=== PATIENT | female | born 1970 | race Caucasian/White ===

== ENCOUNTER 2017-10-08 03:04 | Inpatient (IN) | payer OTHER ==
[~2017-10-08] VITALS: Ht 162.6 cm; Wt 70.3 kg
[~2017-10-08 03:04] MED LIST: ATENOLOL25 MG PO; CEPHALEXIN250 MG PO; HYDROCHLOROTHIA25 MG PO; KEFLEX750 MG PO; KENALOG-1010 MG/1 ML IM; PROMETHAZINE HC25 M1 PO; SOMA350 MG PO; VICODIN ES 7.51 EACH PO
[2017-10-08] MEDS ORDERED: HYDROMORPHONE 1MG/1ML INJ IV STA (03:32)
[2017-10-08] MEDS ORDERED: ONDANSETRON HCL INJ 2 MG/ML VIAL IV STA (03:32)
[2017-10-08 03:45] LABS: BASOPHILS # (AUTO) 0.1 (0.0-0.1); BASOPHILS % 0.8 % (0.0-1.0); EOSINOPHILS % 0.2 % (0.0-6.0); HEMOGLOBIN 13.1 g/dL (12.0-16.0); LYMPHOCYTES # (AUTO) 3.3 (1.0-3.2); LYMPHOCYTES % 17.9 % (18.0-39.1); MEAN CORPUSCULAR HEMOGLOBIN 34.4 pg (28-32); MEAN CORPUSCULAR HGB CONC 35.4 g/dL (31-35); MEAN CORPUSCULAR VOLUME 97.1 fL (81-99); MONOCYTES # (AUTO) 1.1 (0.2-0.8); MONOCYTES % 6.1 % (4.4-11.3); NEUTROPHILS # (AUTO) 12.6 (2.1-6.9); NEUTROPHILS % 68.5 % (38.7-80.0); PLATELET COUNT 427 x10e3/uL (140-360); RED BLOOD COUNT 3.81 x10e6/uL (3.6-5.1); RED CELL DISTRIBUTION WIDTH 14.8 % (11.7-14.4)
[2017-10-08 03:49] LABS: INR 0.96
[2017-10-08 03:56] LABS: ALANINE AMINOTRANSFERASE 45 IU/L (0-55); ALBUMIN 3.5 g/dL (3.5-5.0); ALBUMIN/GLOBULIN RATIO 0.9 (0.8-2.0); ALKALINE PHOSPHATASE 93 IU/L (40-150); ANION GAP 16.8 mmol/L (8-16); BLOOD UREA NITROGEN 25 mg/dL (7-26); BUN/CREATININE RATIO 23 (6-25); CALCIUM 9.3 mg/dL (8.4-10.2); CARBON DIOXIDE 22 mmol/L (22-29); CHLORIDE 100 mmol/L (98-107); CREATININE, SERUM 1.11 mg/dL (0.57-1.11); EST GLOMERULAR FILTRATION RATE 53 ML/MIN (60-); GLUCOSE 246 mg/dL (74-118); MAGNESIUM 1.9 MG/DL (1.3-2.1); POTASSIUM 3.8 mmol/L (3.5-5.1); SODIUM 135 mmol/L (136-145)
[2017-10-08 04:16] LABS: THYROID STIMULATING HORMONE 1.862 uIU/mL (0.350-4.940)
[2017-10-08 04:19] LABS: CREATINE KINASE 100 IU/L (29-168)
--- NOTE | 2017-10-08 04:24 | Diagnostic Imaging Report ---
LOWER LEG RIGHT Comparison: 10/17/2012 Clinical history: \S\LE EDEMA, PAIN RIGHT LEG \[id number] \S\0357 Findings: Mild diffuse soft tissue swelling, worse over the anterior distal tibia. Scattered radiopaque densities are noted, likely artifactual. No acute fracture or osseous erosion. Impression: Soft tissue edema without acute bony abnormality Signed by: Dr Elizabeth Batista MD on 10/08/2017 4:20 AM
--- NOTE | 2017-10-08 04:25 | Diagnostic Imaging Report ---
CHEST SINGLE (PORTABLE), 10/08/2017 3:32 AM Technique: CHEST SINGLE (PORTABLE) Comparison: 07/02/2014 Clinical history: Lower extremity edema Findings: Stable cardiomediastinal silhouette, within normal limits for portable technique. No consolidation or edema. No pleural effusion or pneumothorax. Impression: 1. Lines/Tubes: None 2. No acute abnormality. Signed by: Dr Elizabeth Batsita MD on 10/08/2017 4:22 AM
[2017-10-08] MEDS ORDERED: SODIUM CHLORIDE 0.9% 250ML 250 ML ONE (05:40)
[2017-10-08] MEDS: PIPER-TAZ 3.375 GM 50 ML IV SCH ×3 (05:59→12:24)
[2017-10-08] MEDS: CLINDAMYCIN PHOS 900MG/ D5W 50 50 ML IV SCH ×3 (06:37→22:03)
[2017-10-08 08:03] VITALS: BP 156/78
[2017-10-08] MEDS ORDERED: PROMETHAZINE HCL 25 MG TAB PO PRN (08:15)
[2017-10-08] MEDS ORDERED: CARISOPRODOL 350 MG TAB PO PRN (08:15)
[2017-10-08] MEDS ORDERED: DEXTROSE 50% SYRINGE 50 ML IV PRN (08:15)
[2017-10-08] MEDS: ONDANSETRON HCL INJ 2 MG/ML VIAL IV PRN ×3 (09:00→22:03)
[2017-10-08] MEDS: HYDROMORPHONE 1MG/1ML INJ IV PRN ×4 (09:00→22:03)
--- NOTE | 2017-10-08 09:00 | History and Physical ---
A 47-year-old female comes in with lower extremity pain and swelling. HISTORY OF PRESENTING ILLNESS: This 47-year-old female comes in with gradual increase in pain, severe, and the patient in the last one week has been getting worse. She came in thinking it was a clot. She has history of lupus erythematosus and clot was ruled out and the patient was admitted for cellulitis of the lower extremity. PAST MEDICAL HISTORY: History of lupus erythematosus, history of chronic lung disease, history of apparent fungal infection, currently on and fluconazole. HOME MEDICATIONS: Atenolol 25, Soma 350 mg q.8 h., cephalexin 250 mg 3 times a day, hydrochlorothiazide 50 mg daily, Vicodin ES 7.5 750 q.6 h. and promethazine 25 mg q.6 h. PAST SURGICAL HISTORY: Right lower extremity shawn secondary to fall. FAMILY HISTORY: history of breast cancer in the family and history of diabetes mellitus in the family too. REVIEW OF SYSTEMS: Negative for chest pain. Positive for shortness of breath. No nausea, vomiting or diarrhea. No constipation. No rectal bleeding. No hematochezia or hematemesis. No blurry vision or diplopia. According to the patient, has secondary effects of lupus erythematosus with multiple skin changes and also kidney problems. PHYSICAL EXAMINATION VITAL SIGNS: Temperature 98.7, pulse 105, blood pressure 156/95, respirations 20, pulse oximetry 99%. Microbiology is pending. HEENT: Normocephalic, atraumatic. Pupils react to light and accommodation. CVS: S1 and S2 normal. Regular rate and rhythm. ABDOMEN: Nontender, nondistended. EXTREMITIES: Positive for edema, erythema and tenderness to the right lower extremity, excessively puffed in the dorsum of the foot with hyperesthesia and paresthesia in the lower extremity. LABORATORY DATA: White count 18,000, platelet count 427,000, neutrophil count 68.5, lymphocyte 216.9. Coag studies, D-dimer 0.86. Chemistry: Sodium 135, anion gap of 16.8, GFR 53, glucose 246, globulin 3.9. ASSESSMENT AND PLAN: Cellulitis of the right lower extremity with lymphedema. The patient has been started on Zosyn. Her glucose is running a bit high. We will go ahead and do A1c. I will start her on sliding scale. Consult Dr. Suggs for her lower extremity cellulitis. Will continue to monitor the patient. Further recommendations depending on clinical course. Will restart her home medications too. Job#: [id number] LIANA
[2017-10-08] MEDS: HYDROCHLOROTHIAZIDE 25 MG TAB PO SCH (09:33)
[2017-10-08] MEDS: ATENOLOL 50 MG TAB PO SCH ×2 (09:33→16:26)
[2017-10-08] MEDS: LACTOBACILLUS ACIDOPHILUS CAPSULE PO SCH ×3 (09:33→22:03)
[2017-10-08 10:05] VITALS: BP 156/78
[2017-10-08 11:46] LABS: CREATINE KINASE 92 IU/L (29-168)
[2017-10-08 12:12] VITALS: BP 121/65
[2017-10-08] MEDS: INSULIN LISPRO 100 UNIT/1 ML 3ML VIAL SQ SCH ×3 (12:25→20:50)
[2017-10-08 14:08] LABS: CLARITY,URINE CLEAR (CLEAR); COLOR,URINE YELLOW (YELLOW)
[2017-10-08 14:09] LABS: BILIRUBIN,URINE NEGATIVE (NEGATIVE); KETONES,URINE NEGATIVE (NEGATIVE); NITRITE,URINE NEGATIVE (NEGATIVE); PREGNANCY TEST, URINE NEGATIVE (NEGATIVE); PROTEIN,URINE DIPSTICK NEGATIVE (NEGATIVE); URINE UROBILINOGEN 0.2 mg/dL (0.2 - 1)
[2017-10-08 14:13] LABS: BACTERIA,URINE FEW /HPF; EPITHELIAL CELLS,URINE FEW /LPF; RBC,URINE 0-5 /HPF (0-5)
[2017-10-08 14:17] LABS: LEUKOCYTE ESTERASE ,URINE 1+ (NEGATIVE)
[2017-10-08 16:01] VITALS: BP 129/71
[2017-10-08 19:27] LABS: CREATINE KINASE 84 IU/L (29-168)
[2017-10-08 20:00] VITALS: BP 140/77
[2017-10-08 23:57] VITALS: BP 140/77
[2017-10-09] VITALS (7 sets, daily range): BP systolic 109–140; BP diastolic 70–81
--- NOTE | 2017-10-09 02:05 | Consultation ---
DATE OF CONSULTATION: October 08, 2017 REASON FOR CONSULTATION: Cellulitis of the leg. HISTORY OF PRESENT ILLNESS: This patient is a 47-year-old white female who has history of lymphedema, history of SLE, history of obesity, and history of neuropathy. The patient comes in with redness and swelling of her legs. She has been having problem with her legs on and off for a while. In 2012, she had bad infection. She had several stitches. Since then she get recurrent infection. The patient does have history of lymphedema. She does use elastic stocking and SATYA hose and skin care, but she keeps recurring infection. Patient comes in with redness and swelling of her leg. Patient apparently was not feeling well. She was quite concerned, so she came to the hospital where she is being evaluated and admitted. She is currently lying in bed comfortably. PAST MEDICAL HISTORY: SLE, lymphedema, diabetes mellitus, and obesity. PAST SURGICAL HISTORY: Foot surgeries. She also had couple of surgeries done in her right leg. ALLERGIES: NKA. SOCIAL HISTORY: There is no smoking, drug abuse or alcohol abuse. FAMILY HISTORY: Otherwise, diabetes mellitus. REVIEW OF SYSTEMS HEENT: Negative. PULMONARY: Negative. CARDIAC: Negative. : Negative. SKIN: There is no rash except on lower extremity. She does have edema in the lower extremities as mentioned above. She also have chronic aches and pains. LABORATORY DATA: Reviewed. Cultures are still pending. White count 18.37, hemoglobin 13.1. Sodium 135, potassium 3.8, and glucose 247. PHYSICAL EXAMINATION GENERAL: She is currently alert and oriented, does not seem to be in acute distress. VITALS: Stable. Currently afebrile. HEENT: She is not icteric. NECK: Supple. No JVD. No lymphadenopathy. No thyromegaly. CHEST: Clear bilateral. COR: S1 and S2. No S3, S4 or murmur. ABDOMEN: Soft. EXTREMITIES: There is generalized edema bilateral. Slight erythema noted on the lower extremities. She has 2 superficial ulcers noted on the right leg. IMPRESSION: Cellulitis on both legs mainly right. The patient has underlying lymphedema. I would suggest to continue clindamycin and discontinue Zosyn. Elastic stocking on q. day. Recheck CBC. Recheck chem panel. We will follow with you. Job#: [id number] REBECCA
[2017-10-09] MEDS: CLINDAMYCIN PHOS 900MG/ D5W 50 50 ML IV SCH ×3 (06:05→21:34)
[2017-10-09] MEDS: INSULIN LISPRO 100 UNIT/1 ML 3ML VIAL SQ SCH ×4 (07:30→21:33)
[2017-10-09 07:47] LABS: BASOPHILS # (AUTO) 0.1 (0.0-0.1); BASOPHILS % 0.8 % (0.0-1.0); EOSINOPHILS # (AUTO) 0.1 (0.0-0.4); EOSINOPHILS % 0.4 % (0.0-6.0); HEMATOCRIT 35.5 % (34.2-44.1); HEMOGLOBIN 12.4 g/dL (12.0-16.0); LYMPHOCYTES # (AUTO) 3.2 (1.0-3.2); LYMPHOCYTES % 19.2 % (18.0-39.1); MEAN CORPUSCULAR HEMOGLOBIN 33.8 pg (28-32); MEAN CORPUSCULAR HGB CONC 34.9 g/dL (31-35); MEAN CORPUSCULAR VOLUME 96.7 fL (81-99); MONOCYTES # (AUTO) 1.2 (0.2-0.8); MONOCYTES % 6.9 % (4.4-11.3); NEUTROPHILS # (AUTO) 11.3 (2.1-6.9); NEUTROPHILS % 67.6 % (38.7-80.0); PLATELET COUNT 379 x10e3/uL (140-360); RED BLOOD COUNT 3.67 x10e6/uL (3.6-5.1); RED CELL DISTRIBUTION WIDTH 14.6 % (11.7-14.4)
[2017-10-09 08:07] LABS: ALANINE AMINOTRANSFERASE 43 IU/L (0-55); ALBUMIN 3.1 g/dL (3.5-5.0); ALBUMIN/GLOBULIN RATIO 0.9 (0.8-2.0); ALKALINE PHOSPHATASE 76 IU/L (40-150); ANION GAP 14.8 mmol/L (8-16); BLOOD UREA NITROGEN 18 mg/dL (7-26); BUN/CREATININE RATIO 23 (6-25); CALCIUM 9.2 mg/dL (8.4-10.2); CARBON DIOXIDE 24 mmol/L (22-29); CHLORIDE 104 mmol/L (98-107); CHOL/HDL RATIO 5.3 (3.0-3.6); CHOLESTEROL 267 MD/DL (0-199); CREATININE, SERUM 0.78 mg/dL (0.57-1.11); EST GLOMERULAR FILTRATION RATE > 60 ML/MIN (60-); GLUCOSE 125 mg/dL (74-118); HDL CHOLESTEROL 50 MG/DL (40-60); POTASSIUM 3.8 mmol/L (3.5-5.1); SODIUM 139 mmol/L (136-145); TRIGLYCERIDES 677 MG/DL (0-149)
[2017-10-09] MEDS: PANTOPRAZOLE SOD 40 MG TABEC PO SCH (08:30)
[2017-10-09] MEDS: HYDROCHLOROTHIAZIDE 25 MG TAB PO SCH (08:54)
[2017-10-09] MEDS: LACTOBACILLUS ACIDOPHILUS CAPSULE PO SCH ×3 (08:54→21:32)
[2017-10-09] MEDS: ATENOLOL 50 MG TAB PO SCH ×2 (08:55→16:00)
[2017-10-09] MEDS: ACETAMINOPHEN 325 MG TAB PO PRN (09:25)
[2017-10-09] MEDS: ONDANSETRON HCL INJ 2 MG/ML VIAL IV PRN ×3 (10:50→19:47)
[2017-10-09] MEDS: HYDROMORPHONE 1MG/1ML INJ IV PRN ×3 (10:50→19:46)
[2017-10-09 12:01] LABS: LYMPHOCYTES % (MANUAL) 29 % (19-48); MONOCYTES % (MANUAL) 7 % (3.4-9.0); NEUTROPHILS % (MANUAL) 64 % (40-74); PLATELET ESTIMATE ADEQUATE; PLATELET MORPHOLOGY COMMENT NORMAL; RBC MORPHOLOGY COMMENT NORMAL
[2017-10-10] VITALS (8 sets, daily range): BP systolic 115–168; BP diastolic 63–86
[2017-10-10] MEDS: CLINDAMYCIN PHOS 900MG/ D5W 50 50 ML IV SCH ×3 (05:44→21:51)
[2017-10-10] MEDS: ONDANSETRON HCL INJ 2 MG/ML VIAL IV PRN ×4 (06:08→19:24)
[2017-10-10] MEDS: HYDROMORPHONE 1MG/1ML INJ IV PRN ×4 (06:08→19:24)
[2017-10-10 07:01] LABS: BASOPHILS # (AUTO) 0.1 (0.0-0.1); BASOPHILS % 0.9 % (0.0-1.0); EOSINOPHILS # (AUTO) 0.1 (0.0-0.4); EOSINOPHILS % 0.7 % (0.0-6.0); HEMATOCRIT 36.4 % (34.2-44.1); HEMOGLOBIN 12.5 g/dL (12.0-16.0); LYMPHOCYTES # (AUTO) 3.4 (1.0-3.2); LYMPHOCYTES % 25.1 % (18.0-39.1); MEAN CORPUSCULAR HEMOGLOBIN 33.2 pg (28-32); MEAN CORPUSCULAR HGB CONC 34.3 g/dL (31-35); MEAN CORPUSCULAR VOLUME 96.8 fL (81-99); MONOCYTES # (AUTO) 1.1 (0.2-0.8); MONOCYTES % 7.7 % (4.4-11.3); NEUTROPHILS # (AUTO) 8.1 (2.1-6.9); NEUTROPHILS % 59.8 % (38.7-80.0); PLATELET COUNT 371 x10e3/uL (140-360); RED BLOOD COUNT 3.76 x10e6/uL (3.6-5.1); RED CELL DISTRIBUTION WIDTH 14.9 % (11.7-14.4)
[2017-10-10] MEDS: INSULIN LISPRO 100 UNIT/1 ML 3ML VIAL SQ SCH ×4 (07:30→20:00)
[2017-10-10 08:02] LABS: EOSINOPHILS % (MANUAL) 2 % (0-7); LYMPHOCYTES % (MANUAL) 29 % (19-48); METAMYELOCYTES % (MANUAL) 3 % (0-0); MONOCYTES % (MANUAL) 9 % (3.4-9.0); MYELOCYTES % (MANUAL) 5 % (0-0); NEUTROPHILS % (MANUAL) 52 % (40-74); PLATELET ESTIMATE ADEQUATE; PLATELET MORPHOLOGY COMMENT NORMAL; RBC MORPHOLOGY COMMENT NORMAL
[2017-10-10] MEDS: ATENOLOL 50 MG TAB PO SCH ×2 (09:48→16:19)
[2017-10-10] MEDS: PANTOPRAZOLE SOD 40 MG TABEC PO SCH (09:48)
[2017-10-10] MEDS: HYDROCHLOROTHIAZIDE 25 MG TAB PO SCH (09:48)
[2017-10-10] MEDS: LACTOBACILLUS ACIDOPHILUS CAPSULE PO SCH ×3 (09:48→20:07)
[2017-10-10] MEDS ORDERED: DICYCLOMINE HCL 10 MG CAP PO PRN (16:15)
[2017-10-11] VITALS (9 sets, daily range): BP systolic 117–145; BP diastolic 68–77
[2017-10-11] MEDS: HYDROMORPHONE 1MG/1ML INJ IV PRN ×5 (00:10→20:19)
[2017-10-11] MEDS: ONDANSETRON HCL INJ 2 MG/ML VIAL IV PRN ×3 (00:10→20:19)
[2017-10-11] MEDS: CLINDAMYCIN PHOS 900MG/ D5W 50 50 ML IV SCH (05:19)
[2017-10-11] MEDS: INSULIN LISPRO 100 UNIT/1 ML 3ML VIAL SQ SCH ×4 (07:30→20:20)
[2017-10-11] MEDS: PANTOPRAZOLE SOD 40 MG TABEC PO SCH (07:46)
[2017-10-11] MEDS: ATENOLOL 50 MG TAB PO SCH ×2 (09:13→17:44)
[2017-10-11] MEDS: HYDROCHLOROTHIAZIDE 25 MG TAB PO SCH (09:13)
[2017-10-11] MEDS: LACTOBACILLUS ACIDOPHILUS CAPSULE PO SCH ×3 (09:13→20:19)
[2017-10-11] MEDS: CHOLESTYRAMINE 4 GM PACKET PO SCH (17:43)
[2017-10-11] MEDS: VANCOMYCIN 250MG/5ML ORAL SOLN PO SCH ×2 (18:24→23:23)
[2017-10-12] VITALS (7 sets, daily range): BP systolic 114–145; BP diastolic 62–86
[2017-10-12] MEDS: HYDROMORPHONE 1MG/1ML INJ IV PRN ×5 (03:07→22:11)
[2017-10-12] MEDS: ONDANSETRON HCL INJ 2 MG/ML VIAL IV PRN ×4 (03:07→22:11)
[2017-10-12] MEDS: ACETAMINOPHEN 325 MG TAB PO PRN (05:06)
[2017-10-12] MEDS: VANCOMYCIN 250MG/5ML ORAL SOLN PO SCH (05:06)
[2017-10-12] MEDS ORDERED: PROMETHAZINE HCL (IM) 25 MG/ML VIAL IM PRN (06:00)
[2017-10-12] MEDS ORDERED: PROMETHAZINE HCL (IM) 25 MG/ML VIAL IM ONE (06:00)
[2017-10-12] MEDS: INSULIN LISPRO 100 UNIT/1 ML 3ML VIAL SQ SCH ×4 (07:30→20:41)
[2017-10-12] MEDS: PANTOPRAZOLE SOD 40 MG TABEC PO SCH (09:26)
[2017-10-12] MEDS: HYDROCHLOROTHIAZIDE 25 MG TAB PO SCH (09:27)
[2017-10-12] MEDS: LACTOBACILLUS ACIDOPHILUS CAPSULE PO SCH ×3 (09:27→22:11)
[2017-10-12] MEDS: CHOLESTYRAMINE 4 GM PACKET PO SCH ×2 (09:27→17:00)
[2017-10-12] MEDS: ATENOLOL 50 MG TAB PO SCH ×2 (09:28→17:45)
[2017-10-12] MEDS ORDERED: SENNA LAXATIVE1 EACH PO (13:16)
[2017-10-12] MEDS ORDERED: LACTULOSE20 GM/30 M PO (13:16)
[2017-10-12] MEDS: METRONIDAZOLE 500 MG TAB PO SCH ×2 (15:22→22:11)
[2017-10-12] MEDS ORDERED: DOXYCYCLINE HYCLATE TABLET 100 MG TAB PO SCH (17:00)
[2017-10-13] VITALS: BP 130/79
[2017-10-13 04:00] VITALS: BP 141/67
[2017-10-13] MEDS: ONDANSETRON HCL INJ 2 MG/ML VIAL IV PRN (05:28)
[2017-10-13] MEDS: HYDROMORPHONE 1MG/1ML INJ IV PRN (05:28)
[2017-10-13] MEDS ORDERED: DOXYCYCLINE HY100 MG PO (05:38)
[2017-10-13] MEDS ORDERED: FLAGYL250 MG PO (05:40)
[2017-10-13] MEDS: METRONIDAZOLE 500 MG TAB PO SCH (05:59)
== END 2017-10-13 06:19 | disposition home or self-care (01) | DRG 872 ==
LOC: ER 03:04 → ERHOLD 06:02 → MED/SURG3 07:07
PROVIDERS: ADMIT Internal Medicine; ATTEND Internal Medicine
DX: A41.9 Sepsis, unspecified organism (principal); L03.115 Cellulitis of right lower limb; L93.0 Discoid lupus erythematosus; I89.0 Lymphedema, not elsewhere classified; E11.9 Type 2 diabetes mellitus without complications; M32.9 Systemic lupus erythematosus, unspecified; E66.9 Obesity, unspecified; K21.9 Gastro-esophageal reflux disease without esophagitis; I10 Essential (primary) hypertension; R19.7 Diarrhea, unspecified
CPT/HCPCS: 36415; 71045; 80053; 80061; 81001; 81025; 82550; 82553; 82948; 83036; 83735; 83880; 84443; 84484; 85025; 85379; 85610; 85730; 87040; 87086; 93970; 99284; J1170; J2405; J2543; J2550; J7050

== ENCOUNTER 2018-04-09 14:49 | Inpatient (IN) | payer OTHER ==
[~2018-04-09] VITALS: Ht 162.6 cm; Wt 78.6 kg
[~2018-04-09 14:49] MED LIST changes: +DOXYCYCLINE HY100 MG PO; +FLAGYL250 MG PO; +LACTULOSE20 GM/30 M PO; +SENNA LAXATIVE1 EACH PO
[2018-04-09] MEDS ORDERED: SODIUM CHLORIDE 0.9% 1000ML 1,000 ML IV STA (15:38)
[2018-04-09] MEDS ORDERED: VANCOMYCIN 1GM/NS 250 ML 250 ML IV ONE (16:00)
[2018-04-09] MEDS ORDERED: ONDANSETRON HCL INJ 2 MG/ML VIAL IV ONE (16:00)
[2018-04-09] MEDS ORDERED: MORPHINE SULFATE INJ 4 MG/ML INJ IV ONE (16:00)
[2018-04-09] MEDS ORDERED: PIPER-TAZ 3.375 GM 50 ML IV ONE (16:00)
[2018-04-09 16:07] LABS: BASOPHILS # (AUTO) 0.1 (0.0-0.1); BASOPHILS % 0.3 % (0.0-1.0); EOSINOPHILS # (AUTO) 0.1 (0.0-0.4); EOSINOPHILS % 0.3 % (0.0-6.0); HEMOGLOBIN 14.8 g/dL (12.0-16.0); LYMPHOCYTES # (AUTO) 2.5 (1.0-3.2); LYMPHOCYTES % 13.4 % (18.0-39.1); MEAN CORPUSCULAR HEMOGLOBIN 32.4 pg (28-32); MEAN CORPUSCULAR HGB CONC 33.6 g/dL (31-35); MEAN CORPUSCULAR VOLUME 96.3 fL (81-99); MONOCYTES # (AUTO) 0.9 (0.2-0.8); MONOCYTES % 4.6 % (4.4-11.3); NEUTROPHILS # (AUTO) 15.1 (2.1-6.9); NEUTROPHILS % 79.6 % (38.7-80.0); PLATELET COUNT 406 x10e3/uL (140-360); RED BLOOD COUNT 4.57 x10e6/uL (3.6-5.1); RED CELL DISTRIBUTION WIDTH 14.6 % (11.7-14.4)
[2018-04-09 16:13] LABS: INR 0.86; PROTHROMBIN TIME 12.5 seconds (11.9-14.5)
[2018-04-09 16:14] LABS: PARTIAL THROMBOPLASTIN TIME 29.1 seconds (23.8-35.5)
[2018-04-09] MEDS ORDERED: MORPHINE SULFATE INJ 4 MG/ML INJ IV PRN (16:15)
[2018-04-09 16:24] LABS: ALANINE AMINOTRANSFERASE 93 IU/L (0-55); ALBUMIN 3.5 g/dL (3.5-5.0); ALBUMIN/GLOBULIN RATIO 0.8 (0.8-2.0); ALKALINE PHOSPHATASE 97 IU/L (40-150); ANION GAP 17.1 mmol/L (8-16); BLOOD UREA NITROGEN 7 mg/dL (7-26); BUN/CREATININE RATIO 8 (6-25); CALCIUM 9.6 mg/dL (8.4-10.2); CARBON DIOXIDE 21 mmol/L (22-29); CHLORIDE 100 mmol/L (98-107); CREATINE KINASE 32 IU/L (29-168); CREATININE, SERUM 0.84 mg/dL (0.57-1.11); EST GLOMERULAR FILTRATION RATE > 60 ML/MIN (60-); GLUCOSE 107 mg/dL (74-118); LIPASE 9 U/L (8-78); POTASSIUM 4.1 mmol/L (3.5-5.1); SODIUM 134 mmol/L (136-145)
--- NOTE | 2018-04-09 16:55 | NUR ---
VENOUS DOPPLER TECH AT BEDSIDE.
[2018-04-09] MEDS ORDERED: HYDROMORPHONE 2MG/ML 2 MG/ML ML IV ONE ×2 (17:30→18:15)
[2018-04-09] MEDS: PIPER-TAZ 3.375 GM 50 ML IV SCH (17:31)
[2018-04-09] MEDS: LINEZOLID 600 MG/D5W 300ML 300 ML IV SCH (17:31)
--- NOTE | 2018-04-09 17:39 | NUR ---
PT TO BE ADMITTED AND IS AWARE OF THIS. ROOM ASSIGNMENT GIVEN. ATTEMPTED TO CALL REPORT NURSE UNAVAILABLE AT THIS TIME. INFORMED MY CHARGE NURSE SILVANA CABEZAS. WILL TRY TO CALL BACK WITHIN 10 MINS REQUESTED.
[2018-04-09] MEDS ORDERED: LINEZOLID 600 MG/D5W 300ML 300 ML IV SCH (18:00)
--- NOTE | 2018-04-09 18:06 | NUR ---
RCD PT FROM ER BY STRETCHER PT IS ALERT AND ORIENTED VITALS CHECKED STARTED IV FLUID AND ANTIBIOTICS PT RESTING ON BED BED LOW AND LOCKED CALL LIGHT IN REACH
--- NOTE | 2018-04-09 18:41 | NUR ---
PT RESTING ON BED BED SIDE REPORT GIVEN TO ONCOMING NURSE ALSO NOTIFIED SHE HAVE TO DO ADMISSION ASSESSMENT AND OTHER PROCESS
[2018-04-09 19:04] LABS: BILIRUBIN,URINE NEGATIVE (NEGATIVE); CLARITY,URINE CLEAR (CLEAR); COLOR,URINE YELLOW (YELLOW); KETONES,URINE NEGATIVE (NEGATIVE); LEUKOCYTE ESTERASE ,URINE NEGATIVE (NEGATIVE); NITRITE,URINE NEGATIVE (NEGATIVE); PROTEIN,URINE DIPSTICK NEGATIVE (NEGATIVE); URINE UROBILINOGEN 0.2 mg/dL (0.2 - 1)
[2018-04-09 19:14] LABS: EPITHELIAL CELLS,URINE MODERATE /LPF; RBC,URINE 0-5 /HPF (0-5); WBC,URINE (MAN) 0-5 /HPF (0-5)
--- NOTE | 2018-04-09 19:35 | NUR ---
Patient received sitting up in bed. Admission history and Initial physical assessment conducted. Patient is AAO x 3. No complaints of pain. Respirations even and unlabored. Patient oriented to room , call light and plan of care. Bed locked and in lowest position. Bed rails up x 2. Patient instructed to call for assistance when needed. Call light within reach.
[2018-04-09 19:45] VITALS: BP 138/65
[2018-04-09 20:08] VITALS: BP 137/67
--- NOTE | 2018-04-09 20:40 | NUR ---
Patient complained about pain to the back of her head (/10), neck stiffness and patient stated that she had floaters on her eyes which was a sign of impending migraine. Dr. Julia Tse was notified. New order received.
[2018-04-09 21:00] VITALS: BP 137/67
[2018-04-09] MEDS: KETOROLAC TROMETHAMINE 30 MG/ML VIAL IV PRN (21:27)
--- NOTE | 2018-04-09 21:33 | NUR ---
Dr. Arsen Tse was called regarding insulin sliding scale for patient. New order received to place patient on a "low dose insulin" sliding scale.
[2018-04-09] MEDS ORDERED: DEXTROSE 50% SYRINGE 50 ML IV PRN (21:45)
[2018-04-09] MEDS: INSULIN REGULAR, HUMAN 100 UNIT/1 ML 3ML VIAL SQ SCH (21:45)
[2018-04-10] VITALS (8 sets, daily range): BP systolic 110–133; BP diastolic 57–71
[2018-04-10] MEDS ORDERED: SODIUM CHLORIDE 0.9% 250ML 250 ML ONE (00:39)
[2018-04-10] MEDS: PIPER-TAZ 3.375 GM 50 ML IV SCH ×2 (00:45→06:55)
[2018-04-10] MEDS: LINEZOLID 600 MG/D5W 300ML 300 ML IV SCH ×2 (04:24→16:38)
[2018-04-10] MEDS: KETOROLAC TROMETHAMINE 30 MG/ML VIAL IV PRN (05:03)
[2018-04-10 05:07] LABS: BASOPHILS # (AUTO) 0.1 (0.0-0.1); BASOPHILS % 0.5 % (0.0-1.0); EOSINOPHILS # (AUTO) 0.1 (0.0-0.4); EOSINOPHILS % 0.9 % (0.0-6.0); HEMATOCRIT 42.6 % (34.2-44.1); HEMOGLOBIN 14.2 g/dL (12.0-16.0); LYMPHOCYTES # (AUTO) 1.9 (1.0-3.2); LYMPHOCYTES % 12.1 % (18.0-39.1); MEAN CORPUSCULAR HEMOGLOBIN 32.8 pg (28-32); MEAN CORPUSCULAR HGB CONC 33.3 g/dL (31-35); MEAN CORPUSCULAR VOLUME 98.4 fL (81-99); MONOCYTES % 6.2 % (4.4-11.3); NEUTROPHILS % 78.3 % (38.7-80.0); PLATELET COUNT 360 x10e3/uL (140-360); RED BLOOD COUNT 4.33 x10e6/uL (3.6-5.1); RED CELL DISTRIBUTION WIDTH 14.6 % (11.7-14.4)
[2018-04-10 05:42] LABS: ALANINE AMINOTRANSFERASE 244 IU/L (0-55); ALBUMIN 3.2 g/dL (3.5-5.0); ALBUMIN/GLOBULIN RATIO 0.8 (0.8-2.0); ALKALINE PHOSPHATASE 127 IU/L (40-150); ANION GAP 17.6 mmol/L (8-16); BLOOD UREA NITROGEN 7 mg/dL (7-26); BUN/CREATININE RATIO 8 (6-25); CARBON DIOXIDE 20 mmol/L (22-29); CHLORIDE 101 mmol/L (98-107); CREATININE, SERUM 0.83 mg/dL (0.57-1.11); EST GLOMERULAR FILTRATION RATE > 60 ML/MIN (60-); GLUCOSE 146 mg/dL (74-118); POTASSIUM 3.6 mmol/L (3.5-5.1); SODIUM 135 mmol/L (136-145)
--- NOTE | 2018-04-10 07:18 | NUR ---
Patient resting comfortably. Shift report given to oncoming nurse.
--- NOTE | 2018-04-10 07:30 | NUR ---
PATIENT SITTING UP IN BED TALKING TO FAMILY MEMBER, NO RESPIRATORY DISTRESS OBSERVED. LARGE OPEN WOUND TO RIGHT FOOT, SMALL WOUND TO THE SIDE OF RIGHT AND LEFT LEG, REDNESS AND SWELLING TO LOWER EXTREMITIES, BUT MOSTLY ON THE RIGHT. BED IN LOWER POSITION, CALL LIGHT AT REACH. INSTRUCTED TO CALL FOR ASSISTANCE NEEDED.
--- NOTE | 2018-04-10 07:32 | Progress Note ---
DATE: NO DICTATION, LENGTH 0:2 Job#: [id number] RI
[2018-04-10] MEDS ORDERED: CARISOPRODOL 350 MG TAB PO PRN (07:45)
[2018-04-10] MEDS ORDERED: PROMETHAZINE HCL 25 MG TAB PO PRN (07:45)
[2018-04-10] MEDS: INSULIN REGULAR, HUMAN 100 UNIT/1 ML 3ML VIAL SQ SCH ×4 (08:00→21:00)
--- NOTE | 2018-04-10 08:01 | History and Physical ---
Patient comes in for bilateral lower extremity cellulitis and tenderness. HISTORY OF PRESENTING ILLNESS: This is Ms. Pratibha Raza with a history of bilateral lymphedema and right lower extremity chronic ulcer with history of , but 2 days prior to admission, the patient started to have increased redness and on the day of admission, the patient woke up with moderate amount of pain and extremity swelling on the lower extremity with radiation to the hips. The patient noticed that the redness and swelling was spreading very fast and the patient came in and was admitted for bilateral lower extremity cellulitis. PAST MEDICAL HISTORY: History of hypertension, history of diabetes mellitus, history of lupus erythematosus, history of questionable Lyme's disease and history of chronic pain syndrome. MEDICATIONS 1. Atenolol 25 mg daily. 2. Soma 350 mg q.8 h. 3. Cephalexin 750 mg 3x a day. 4. Doxycycline 100 mg q.12 h. 5. Hydrochlorothiazide 25 mg daily. 6. Hydrocodone/acetaminophen Vicodin 7.5 and 750 q.6. 7. Flagyl 250 q.8. 8. Promethazine q.25 p.r.n. for nausea. SURGICAL HISTORY: Cholecystectomy, tonsillectomy, tubal ligation, and adenoidectomy. ALLERGIES: IODINE. REVIEW OF SYSTEMS: Negative for chest pain. No shortness of breath. Positive for nausea. No vomiting, no diarrhea, no constipation. No rectal bleeding, no hematochezia, no hematemesis. EXAMINATION VITAL SIGNS: Temperature is 98.5, pulse of 93, blood pressure is 110/57, pulse oximetry 96%. HEENT: Normocephalic, atraumatic. Patient has edematous face. CVS: S1, S2 normal. Regular rate and rhythm. ABDOMEN: Nontender, nondistended. EXTREMITIES: Bilateral lower extremity with erythema, tenderness, and swelling extending all the way to mid-calf. Right lower extremity with positive ulcer with a tissue on the base. Patient's ulcer measured about 1 inch in diameter. LABORATORY VALUES: White count was 18,000, hemoglobin of 14.8, hematocrit of 44. Chemistries show sodium of 134, potassium is 4.1, CO2 21, anion gap was 17.1. Glucose is 107. AST 66, ALT was 93 that is elevated today. of 4.3. Alkaline phosphatase normal at 97. Coags were within normal limits. Urine showed negative leuk esterase and nitrates too. IMAGING STUDIES: Lower extremity Doppler showed no preliminary evidence of DVT. ASSESSMENT AND PLAN 1. Cellulitis of the lower extremity. The patient has been started on Zyvox and also, Zosyn, will continue the same. A consult with Infectious Disease will be done. 2. Elevated liver enzymes. Will trend it and probably do acute hepatitis panel, fetoprotein, and lupus anticoagulant. 3. Diabetes. Will start on the low-dose insulin protocol and restart her pain medications. Further recommendation per clinical course. Will continue monitor the patient. Labs will be followed and will await Dr. Suggs's consultation. Job#: [id number] CQ
[2018-04-10] MEDS: HYDROMORPHONE 2MG/ML 2 MG/ML ML IV PRN ×3 (09:20→22:25)
[2018-04-10] MEDS: HYDROCHLOROTHIAZIDE 25 MG TAB PO SCH (09:26)
[2018-04-10] MEDS: ATENOLOL 50 MG TAB PO SCH ×2 (09:27→17:00)
[2018-04-10] MEDS ORDERED: CEFEPIME HCL 1 GM VIAL IV SCH (10:00)
--- NOTE | 2018-04-10 10:33 | NUR ---
WOUND CARE CONSULT Patient is a 48 y/o female admitted for cellulitis to RLE. Performed head to toe assessment during visit. Patient at bed with at bedside. Noted BLE pitting edema +3 with rubor pronounced to RLE. Palpable pulses bilaterally strong and bounding. Capillary refill < 3 sec. to bilateral feet/ toes. Right guadalupe presents with open/evacuated hematoma from Mar 21 2018 based on patient images on her personal cellular phone measuring 4.5 x 4.5 x 0.4Base of wound is very dry with 100% granulation. Unable to culture sites due to no drainage. Noted redness previously marked with skin marker and is well below the marker line. Patient verbalizes new area on dorsal part of right foot to be a new reddened area.Dr. Suggs consulted for ID. WOUNDS: RLE at Guadalupe - Hematoma - Open Wound - (5 X 5 X0.4cm) LLE -Guadalupe - Old Puncture Wound - 1x1 RLE - Proximal - GUADALUPE - Stable Skin Tear -1x0.5 LABS: WBC 15.29 ALB 3.2 BLOOD CULTURE - PENDING RECOMMENDATION: RLE at [place] - Hematoma - Cleanse wound with NS and 4x4 gauze. Mix Santyl Collagenase and Hydrogel ( 50/50 mix) and apply over wound bed, then cover with Allevyn Gentle Border Foam Dressing once Daily. LLE -Guadalupe - Old Puncture Wound - 1x1 - Open To Air - Monitor RLE - Proximal - GUADALUPE - Stable Skin Tear -1x0.5 - Open To Air - Monitor Addendum: 04/10/18 at 1116 by Aakash Griffin RN Amended: Links added.
[2018-04-10] MEDS: CEFEPIME 1GM/NS 0.9% 50 ML 50 ML IV SCH ×2 (11:10→22:45)
--- NOTE | 2018-04-10 11:16 | Consultation ---
DATE OF CONSULTATION: April 10, 2018 INFECTIOUS DISEASE CONSULTATION This is a patient of Dr. Ovi Tse. Ms. Raza is a pleasant, 48-year-old lady with a past medical history significant for bilateral lymphedema of the lower extremities. She has multiple devices and equipment including Earl wraps and lymphedema pumps that she uses periodically at home. However, the swelling has increased and edema has increased, developing ulcerations and wounds of the lower extremities, worse evident on the right anterior, with pain that is radiating to the hips. She reported to [facility] seeking medical help. PAST MEDICAL HISTORY: Includes hypertension, diabetes, lupus erythematous, questionable Lyme disease, lymphedema of the lower extremities, chronic edema of the lower extremities. ALLERGIES: INCLUDE POLYMYXIN B, VANCOMYCIN, BACITRACIN, NEOMYCIN, IODINE, FISH-CONTAINING PRODUCTS. MEDICATIONS: List has been reviewed. As per the infectious disease point of view, the patient is on Zyvox and Zosyn. LABORATORY STUDIES: Sodium 135, potassium 3.6, chloride 101, CO2 20, BUN 7, creatinine 0.83. White count 15.29, down from 18.93. Hemoglobin 14.2 and platelet count 360. Serologies including hepatitis A, B, and C are pending. MICROBIOLOGY: Blood cultures are pending. RADIOLOGY STUDIES: Venous studies have been ordered, and I do not have access to the result, not available yet. REVIEW OF SYSTEMS: No nausea, vomiting, fever or chills. Trace shortness of breath. Complains of pain over the lower extremities. Complains of venous congestion and lymphedema over the lower extremities. Complains of wound and ulceration of the lower extremities. PHYSICAL EXAMINATION GENERAL: Alert and oriented, in bed. Wound care in the room. VITALS: Temperature is 97.5, pulse 91, respirations 18, blood pressure 128/63. CVS: S1 and S2. CHEST: Equal expansion and clear to auscultation. No acute distress. ABDOMEN: Soft, nontender. No distention. Bowel sounds positive in all 4 quadrants. HEENT: Moist. No pallor. No JVD. EXTREMITIES: Bilateral lower extremity edema, lymphedema. Cellulitis and ulcers of the lower extremities, right more than left. There is about 5-cm round ulceration anteriorly on the right lower extremity. Multiple small other wounds on both of the lower extremities mostly from the knee down. Redness includes from the toes almost to the knees on both sides with the right worse than left. ASSESSMENT AND PLAN: This is a 48-year-old lady with a complicated past medical history as above including lymphedema of the lower extremities, cellulitis of the lower extremities, multiple ulcers of the lower extremities. The ulcers seem to be chronic. Waiting for the lab results. The patient is allergic to vancomycin. Patient is on Zyvox and Zosyn. Will change Zosyn to cefepime. Monitor the patient throughout the hospitalization. Recommend elevation of the lower extremities and wound care. Further management of this patient is based on daily findings on laboratory and physical examination. Thank you very much for this consult. DICTATED BY: JACQUES Palacio. Job#: [id number]
--- NOTE | 2018-04-10 12:10 | NUR ---
LIVER US DONE AT BED SIDE AT THIS TIME. BED IN LOWER POSITION, CALL LIGHT AT REACH.
--- NOTE | 2018-04-10 13:25 | Diagnostic Imaging Report ---
EXAM: Right upper quadrant abdominal ultrasound INDICATION: Elevated LFTs COMPARISON: None. TECHNIQUE: Transverse and longitudinal images of the right upper quadrant abdomen were obtained FINDINGS: Liver: Size: Measures 16.8 cm in the right midclavicular line, normal Appearance: Increased echogenicity, smooth contour Mass: No focal masses Gallbladder: Status post cholecystectomy. Bile Ducts: Intrahepatic Ducts: No dilatation Extrahepatic Ducts: Common bile duct measures 0.9 cm, no dilatation Pancreas: Visualized portions of the pancreatic head, neck and proximal body are normal. Kidney: The right kidney measures 10 cm without evidence of hydronephrosis or stone. Vessels: Aorta: Visualized portions are normal Inferior Vena Cava: Visualized portions are normal Main Portal Vein: Measures 0.9 cm, normal size with hepatopetal flow. Free Fluid: No ascites. IMPRESSION: Hepatomegaly and hepatic steatosis. Status post cholecystectomy. Signed by: Dr. Yaritza Mike MD on 04/10/2018 1:22 PM
--- NOTE | 2018-04-10 15:45 | NUR ---
WOUND CARE STAFF IN TO SEE PATIENT. DRESSING APPLIED TO RIGHT FOOT. CALL LIGHT AT REACH.
--- NOTE | 2018-04-10 23:21 | NUR ---
Patient broke out in hives around lower abdomen, hands , under the breasts after infusion of Cefepime 1 g. No respiratory distress noted. Dr. Hanna Suggs notified. New orders received.
[2018-04-11] MEDS: DIPHENHYDRAMINE HCL 25 MG CAP PO PRN (00:09)
[2018-04-11 01:05] VITALS: BP 148/87
[2018-04-11] MEDS: LINEZOLID 600 MG/D5W 300ML 300 ML IV SCH ×3 (04:10→16:41)
[2018-04-11 05:03] LABS: BASOPHILS # (AUTO) 0.1 (0.0-0.1); BASOPHILS % 0.5 % (0.0-1.0); EOSINOPHILS # (AUTO) 0.1 (0.0-0.4); EOSINOPHILS % 0.9 % (0.0-6.0); HEMATOCRIT 38.6 % (34.2-44.1); HEMOGLOBIN 12.6 g/dL (12.0-16.0); LYMPHOCYTES # (AUTO) 1.7 (1.0-3.2); LYMPHOCYTES % 13.6 % (18.0-39.1); MEAN CORPUSCULAR HGB CONC 32.6 g/dL (31-35); MONOCYTES # (AUTO) 0.6 (0.2-0.8); MONOCYTES % 4.9 % (4.4-11.3); NEUTROPHILS # (AUTO) 10.1 (2.1-6.9); NEUTROPHILS % 78.4 % (38.7-80.0); PLATELET COUNT 349 x10e3/uL (140-360); RED BLOOD COUNT 3.94 x10e6/uL (3.6-5.1); RED CELL DISTRIBUTION WIDTH 14.5 % (11.7-14.4)
[2018-04-11] MEDS ORDERED: SODIUM CHLORIDE 0.9% 50ML 100 ML ONE (05:16)
[2018-04-11] MEDS ORDERED: MEROPENEM 500 MG VIAL ONE (05:21)
[2018-04-11 05:26] LABS: ALANINE AMINOTRANSFERASE 159 IU/L (0-55); ALBUMIN 2.8 g/dL (3.5-5.0); ALBUMIN/GLOBULIN RATIO 0.8 (0.8-2.0); ALKALINE PHOSPHATASE 105 IU/L (40-150); ANION GAP 15.6 mmol/L (8-16); BLOOD UREA NITROGEN 8 mg/dL (7-26); BUN/CREATININE RATIO 10 (6-25); CALCIUM 8.9 mg/dL (8.4-10.2); CARBON DIOXIDE 22 mmol/L (22-29); CHLORIDE 101 mmol/L (98-107); CREATININE, SERUM 0.78 mg/dL (0.57-1.11); EST GLOMERULAR FILTRATION RATE > 60 ML/MIN (60-); GLUCOSE 176 mg/dL (74-118); POTASSIUM 3.6 mmol/L (3.5-5.1); SODIUM 135 mmol/L (136-145)
[2018-04-11] MEDS: MEROPENEM 500MG 500 MG in SODIUM CHLORIDE 0.9% 50ML 50 ML IV SCH ×3 (06:00→15:50)
[2018-04-11] MEDS: HYDROMORPHONE 2MG/ML 2 MG/ML ML IV PRN ×3 (06:12→21:37)
--- NOTE | 2018-04-11 06:27 | NUR ---
Patient's vascular access infiltrated. Old IV removed with tip intact. New IV inserted in Right wrist 22G. Patient tolerated well.
[2018-04-11 06:39] VITALS: BP 118/66
--- NOTE | 2018-04-11 07:54 | Progress Note ---
DATE: SUBJECTIVE: The patient is here for cellulitis of the lower extremities and also for elevated liver enzymes. Currently, the patient is doing better, had an episode of urticaria with Maxipime yesterday. Maxipime was stopped and Merrem started today. The patient's pain is controlled with the Dilaudid and the patient is feeling less pain in the lower extremities. OBJECTIVE VITAL SIGNS: Temperature is 97.8, pulse of 78, respirations of 18, blood pressure of 118/66, pulse oximetry 98%. HEENT: Normocephalic, atraumatic. Pupils are reactive to light and accommodation . CVS: S1, S2 normal. Regular rate and rhythm. ABDOMEN: Soft, nontender, and nondistended. EXTREMITIES: Right lower extremity with ulceration with poor granulation tissue. The patient's erythema and tenderness extends all the way to mid calf bilaterally, more erythema and more swelling in the right lower extremity. LABORATORY VALUES: Today's white count is 12,000 down from 15,000 yesterday, neutrophil count is 78.4. Coags are normal. Chemistries; sodium of 135, potassium of 3.6, and glucose was 185. AST is 66, ALT 159 and it is down from 227 and 244 yesterday. BUN and creatinine are normal at 7 and 0.83. IMAGING STUDIES: Liver ultrasound shows hepatomegaly and hepatic steatosis. MICROBIOLOGY: Urine culture is pending and blood culture shows no growth in the last 24 hours. MEDICATIONS: She is on hydromorphone 1 mg q.3h., Merrem q.8h. 1 gram, Zyvox q.12h., diphenhydramine as needed, insulin regular as protocol as needed, hydrochlorothiazide 50 mg, Toradol 50 mg as needed, morphine q.4h., atenolol 25 mg b.i.d., promethazine 25 mg and ondansetron 4 mg. ASSESSMENT 1. Cellulitis of the bilateral extremities, ulceration of the right lower extremity, nonhealing. 2. Lupus erythematosus. 3. Hypertension. 4. Diabetes mellitus. 5. Chronic low back pain and chronic pain syndrome. 6. Non-alcoholic steatohepatitis. PLAN: Plan is to continue with antibiotics. The patient's medicines have been reviewed and will be continued. We will start the morphine, the patient is getting Dilaudid. We will advocate a low-fat diet to the patient for BERNSTEIN. A PICC will be ordered today. The patient will need long-term antibiotics. Further recommendations per clinical course. We will continue to monitor the patient along with the consultants. Job#: [id number] LIZETTE
[2018-04-11 07:55] VITALS: BP 140/88
[2018-04-11] MEDS: INSULIN REGULAR, HUMAN 100 UNIT/1 ML 3ML VIAL SQ SCH ×4 (08:00→21:37)
--- NOTE | 2018-04-11 08:00 | NUR ---
BEDSIDE ROUNDING DONE EARLIER; NO DISTRESS VOICED OR NOTED.
[2018-04-11] MEDS: HYDROCHLOROTHIAZIDE 25 MG TAB PO SCH (09:00)
[2018-04-11] MEDS: ATENOLOL 50 MG TAB PO SCH ×2 (09:00→17:00)
[2018-04-11] MEDS: COLLAGENASE OINTMENT 30 GM TUBE TP SCH ×2 (09:00→22:55)
[2018-04-11 12:00] VITALS: BP 105/67
--- NOTE | 2018-04-11 12:30 | NUR ---
PT CO OF GENERALIZED PAIN; MEDICATED ORDER. PAIN 09/25
--- NOTE | 2018-04-11 13:54 | Diagnostic Imaging Report ---
EXAMINATION: CHEST XRAY LINE PLACEMENT INDICATION: ^PICC LINE PLACEMENT ^[id number] ^1330 ^Y COMPARISON: 10/08/2017 FINDINGS: AP view TUBES and LINES: Right PICC in place with tip overlying SVC. LUNGS: Low lung volumes. Mild central vascular congestion. Bibasilar subsegmental atelectasis. PLEURA: No pleural effusion or pneumothorax. HEART AND MEDIASTINUM: The cardiomediastinal silhouette is prominent. BONES AND SOFT TISSUES: No acute osseous lesion. Soft tissues are unremarkable. UPPER ABDOMEN: No free air under the diaphragm. IMPRESSION: Status post right PICC placement with tip overlying mid to lower SVC. No visible pneumothorax. Mild central vascular congestion. Subsegmental atelectasis. Bibasilar Signed by: Dr. Rony Gonzales MD on 04/11/2018 1:50 PM
[2018-04-11 15:53] VITALS: BP 141/84
--- NOTE | 2018-04-11 16:50 | NUR ---
PT GIVEN ZYVOX EARLIER AND BENADRYL [address] GIVEN ORDERED AND CALL PLACE TO DR BOWEN AND ORDERS RECEIVED TO DC ABX. PT HIVES GETTING WORSE AND PT STATES COMPLAINT OF DIFFICULTY BREATHING; RAPID RESPONSE CALLED AND NEW ORDERS GIVEN AND CARRIED OUT. VS 147/83 HR 84 RR18. AT 1657 BP 146/87 HR80. PT FEELING MUCH BETTER AT THIS TIME.
[2018-04-11] MEDS ORDERED: FAMOTIDINE 20 MG/2 ML VIAL IV STA (16:58)
[2018-04-11] MEDS ORDERED: METHYLPREDNISOLONE SOD SUCC 125 MG/2ML VIAL IV SCH (17:00)
[2018-04-11] MEDS ORDERED: FAMOTIDINE 20 MG TAB ONE (17:03)
[2018-04-11] MEDS ORDERED: FAMOTIDINE 20 MG TAB PO ONE (17:15)
--- NOTE | 2018-04-11 18:25 | NUR ---
PT COMPLAINS OF GENERALIZED PAIN. [id number] IV GIVEN ORDERED
[2018-04-11 20:00] VITALS: BP 145/82
--- NOTE | 2018-04-11 22:55 | NUR ---
Wound dressing to VALENTE velasquez done, patient tolerated well.
[2018-04-12] VITALS (10 sets, daily range): BP systolic 112–177; BP diastolic 71–91
[2018-04-12] MEDS: HYDROMORPHONE 2MG/ML 2 MG/ML ML IV PRN ×4 (03:21→20:23)
[2018-04-12 04:36] LABS: BASOPHILS % 0.2 % (0.0-1.0); HEMATOCRIT 37.1 % (34.2-44.1); HEMOGLOBIN 12.6 g/dL (12.0-16.0); LYMPHOCYTES # (AUTO) 1.1 (1.0-3.2); LYMPHOCYTES % 8.7 % (18.0-39.1); MEAN CORPUSCULAR HEMOGLOBIN 32.3 pg (28-32); MEAN CORPUSCULAR VOLUME 95.1 fL (81-99); MONOCYTES # (AUTO) 0.2 (0.2-0.8); MONOCYTES % 1.2 % (4.4-11.3); NEUTROPHILS # (AUTO) 11.4 (2.1-6.9); NEUTROPHILS % 88.2 % (38.7-80.0); PLATELET COUNT 413 x10e3/uL (140-360); RED CELL DISTRIBUTION WIDTH 14.2 % (11.7-14.4)
[2018-04-12 05:08] LABS: ALANINE AMINOTRANSFERASE 114 IU/L (0-55); ALBUMIN 2.9 g/dL (3.5-5.0); ALBUMIN/GLOBULIN RATIO 0.7 (0.8-2.0); ALKALINE PHOSPHATASE 98 IU/L (40-150); ANION GAP 16.3 mmol/L (8-16); BLOOD UREA NITROGEN 12 mg/dL (7-26); BUN/CREATININE RATIO 15 (6-25); CALCIUM 9.3 mg/dL (8.4-10.2); CARBON DIOXIDE 24 mmol/L (22-29); CHLORIDE 99 mmol/L (98-107); CHOL/HDL RATIO 4.1 (3.0-3.6); CHOLESTEROL 220 MD/DL (0-199); CREATININE, SERUM 0.78 mg/dL (0.57-1.11); EST GLOMERULAR FILTRATION RATE > 60 ML/MIN (60-); GLUCOSE 216 mg/dL (74-118); HDL CHOLESTEROL 54 MG/DL (40-60); LDL CHOLESTEROL 139 MG/DL (60-130); POTASSIUM 3.3 mmol/L (3.5-5.1); SODIUM 136 mmol/L (136-145); TRIGLYCERIDES 133 MG/DL (0-149)
[2018-04-12] MEDS: MEROPENEM 500MG 500 MG in SODIUM CHLORIDE 0.9% 50ML 50 ML IV SCH (06:50)
[2018-04-12] MEDS: COLLAGENASE OINTMENT 30 GM TUBE TP SCH ×2 (08:37→22:57)
[2018-04-12] MEDS: ATENOLOL 50 MG TAB PO SCH ×2 (08:37→18:00)
[2018-04-12] MEDS: HYDROCHLOROTHIAZIDE 25 MG TAB PO SCH (08:37)
[2018-04-12] MEDS: INSULIN REGULAR, HUMAN 100 UNIT/1 ML 3ML VIAL SQ SCH ×4 (10:34→20:23)
--- NOTE | 2018-04-12 10:38 | Progress Note ---
DATE: Ms. Raza is improving. She is doing better. There is no new complaint. The patient comes in with a bullous lesion of her leg, hematoma and got infected. The patient has underlying history of lymphedema and underlying history of SLE, status post debridement of the left lower extremity. She is improving. The redness is getting better. REVIEW OF SYSTEMS HEENT: Negative. PULMONARY: Negative. CARDIAC: Negative. LABS: White count is 12.93, hemoglobin 12. Sodium 136, potassium 3.3, creatinine 0.78. The patient is currently on Dilaudid and meropenem. IMPRESSION 1. Cellulitis in a patient with underlying lymphedema of the leg. 2. Systemic lupus erythematosus. 3. Diabetes mellitus. Improving on meropenem and local care. Continue with local care. Will follow with you. Job#: [id number] JAME
[2018-04-12] MEDS: MEROPENEM 500MG/ NS 50ML 50 ML IV SCH ×2 (14:47→21:35)
[2018-04-13] VITALS (7 sets, daily range): BP systolic 121–159; BP diastolic 58–84
[2018-04-13] MEDS: HYDROMORPHONE 2MG/ML 2 MG/ML ML IV PRN ×5 (00:17→21:46)
--- NOTE | 2018-04-13 03:59 | NUR ---
Patient c/o hives to underarms, lateral chest/abdomen area, hips & under breasts. No respiratory distress noted & denies any issues at this time. 50mg of Benadryl was administered. Dr. Cardozo was notified, stated monitor the patient for now and he will visit the patient soon. Addendum: 04/13/18 at 0433 by STEPHANIE ADAMS RN Was also advised by Dr. Cardozo to hold [facility]
[2018-04-13] MEDS: DIPHENHYDRAMINE HCL 25 MG CAP PO PRN ×5 (04:08→22:56)
--- NOTE | 2018-04-13 04:45 | NUR ---
Patient c/o itchiness not going away and requested another dose of Benadryler. Dr. Cardozo gave the okay to give another x1 dose of 50mg of Benadryl now.
--- NOTE | 2018-04-13 07:18 | NUR ---
pt awake resp even and unlabored no distress noted at this time, pt has no c/o pain when asked, pt also has family member at bedside, call light in reach.
[2018-04-13] MEDS: INSULIN REGULAR, HUMAN 100 UNIT/1 ML 3ML VIAL SQ SCH ×4 (07:30→21:00)
[2018-04-13] MEDS: ATENOLOL 50 MG TAB PO SCH ×2 (08:40→17:52)
[2018-04-13] MEDS: HYDROCHLOROTHIAZIDE 25 MG TAB PO SCH (08:40)
[2018-04-13] MEDS: COLLAGENASE OINTMENT 30 GM TUBE TP SCH (08:41)
--- NOTE | 2018-04-13 12:07 | NUR ---
[employer] Senior Executive to bedside to discuss plan of care with patient/family. CM/SW role and care transitions discussed. Anticipated discharge plan discussed along with duration of care. CM/SW discussed patients right to make decisions in care. CM/SW work hours given. Patient lives: with Admit/Transfer: thru ED, from home POA/Emergency contact: lucy Leonard [phone] (home) and [phone] (cell) Current/Previous Home Health: none PCP/Follow-up Care: Dr. Cardozo Current/Previous DME: [facility] Other Services: none Employment Status: unemployed Areas of Concerns: n/a Referral Needs: may need home iv abx Education Needs: n/a IMM/DE JESUS given and signed (if applicable): n/a Goal for discharge: home with family. family will provide transportation CM/SW left business card at the bedside with contact information. Name and number was also written on the patients whiteboard. Patient verbalized understanding of discussion. CM will follow-up with ongoing discharge and transition of care needs.
[2018-04-13] MEDS: MEROPENEM 500MG/ NS 50ML 50 ML IV SCH ×2 (12:16→21:45)
[2018-04-13] MEDS: ONDANSETRON HCL INJ 2 MG/ML VIAL IV PRN ×3 (12:30→21:45)
--- NOTE | 2018-04-13 19:19 | NUR ---
report given to oncoming nurse, for continued care.
--- NOTE | 2018-04-13 19:25 | NUR ---
Received patient awake on bed, family member at the bedside, dressing to the RLE noted, dry and intact. Call light within easy reach, advised to call for assistance when needed. Will continue to monitor
--- NOTE | 2018-04-13 21:32 | NUR ---
Spoke to Dr. Suggs to confirm Benadryl po dosage, may give Benadryl 50mg po 30 mins prior to Merrem IV and 50mg po 30 mins after. Will continue to monitor pt.
[2018-04-13] MEDS ORDERED: SODIUM CHLORIDE 0.9% 250ML 250 ML ONE (22:18)
--- NOTE | 2018-04-13 22:45 | NUR ---
dressing to RLE velasquez done per MD order, pain med given prior to WC.
[2018-04-14] VITALS (7 sets, daily range): BP systolic 96–163; BP diastolic 56–83
[2018-04-14] MEDS: DIPHENHYDRAMINE HCL 25 MG CAP PO PRN ×2 (05:14→06:26)
[2018-04-14] MEDS: ONDANSETRON HCL INJ 2 MG/ML VIAL IV PRN ×3 (05:24→18:09)
[2018-04-14] MEDS: HYDROMORPHONE 2MG/ML 2 MG/ML ML IV PRN ×3 (05:24→18:09)
[2018-04-14] MEDS: MEROPENEM 500MG/ NS 50ML 50 ML IV SCH (05:42)
--- NOTE | 2018-04-14 07:13 | NUR ---
pt awake resp even and unlabored at this time no distress noted. pt able to make needs known, pt sitting upright in bed, call light in reach will cont to monitor.
[2018-04-14] MEDS: INSULIN REGULAR, HUMAN 100 UNIT/1 ML 3ML VIAL SQ SCH ×4 (07:30→21:00)
[2018-04-14] MEDS: HYDROCHLOROTHIAZIDE 25 MG TAB PO SCH (08:55)
[2018-04-14] MEDS: ATENOLOL 50 MG TAB PO SCH ×2 (08:57→16:46)
[2018-04-14] MEDS: COLLAGENASE OINTMENT 30 GM TUBE TP SCH (08:57)
--- NOTE | 2018-04-14 10:31 | NUR ---
Spoke with JACQUES Truong with infectious disease regarding abx for discharge. Alexi discussed with Dr. Suggs and wrote prescription for PO Cipro and Doxycycline. Pt to follow up with Dr. Suggs 2 weeks post. LILY Levy is aware and will inform Dr. Cardozo.
[2018-04-14] MEDS ORDERED: DOXYCYCLINE HYCLATE TABLET 100 MG TAB PO NR (12:30)
--- NOTE | 2018-04-14 14:20 | NUR ---
PT TOLERATED DOXYCYCLINE PO WELL NO HIVES OR WHELPS, OR SOB. WILL CONT TO MONITOR
--- NOTE | 2018-04-14 16:03 | NUR ---
Nutrition Screen Note RD Recommendation for Physician: -Continue ADA diet as ordered Plan of Care: RD following, monitoring for tolerance and adequacy Nutrition reason for involvement: LOS Primary Diagnose(s): Cellulitis in a patient with underlying lymphedema of the leg PMH: HTN, DM, lupus, lymes dz, chronic pain syndrome Ht: 64in Wt: 171.5lb BMI: 29.4kg/m2 IBW: 120lb RD Assessment: (04/14) Chart reviewed. Labs and meds reviewed. 48yo F, who is admitted for cellulitis of BLE. Visited pt in the room. Pt reports good appetite with ~75% recorded meal intake. Pt reports of some nausea due to meds but no vomiting today. LBM 04/14. No other GI complains. Pt complains of some chewing difficulty with raw vegetables due to missing teeth but refused texture modification. No swallowing difficulty noted. 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 Will continue to monitor and follow. Current Diet: ADA diet Malnutrition Evaluation (04/14) The patient does not meet criteria for a specified degree of malnutrition at this time. Will re-evaluate at follow-up as appropriate. Diet Education Needs Assessment: Diet education not indicated. Nutrition Care Level: low Signed: Pat Mims, MS, RD, LD
--- NOTE | 2018-04-14 19:42 | NUR ---
REPORT GIVEN TO ONCOMING NURSE, FOR CONTINUED CARE.
[2018-04-14] MEDS ORDERED: LOPERAMIDE HCL 2 MG CAP PO PRN (19:45)
[2018-04-14] MEDS: DIPHENHYDRAMINE HCL 25 MG CAP PO SCH ×2 (20:53→22:14)
[2018-04-14] MEDS: MEROPENEM 500MG 500 MG in SODIUM CHLORIDE 0.9% 50ML 50 ML IV SCH (21:35)
[2018-04-15] VITALS (8 sets, daily range): BP systolic 108–115; BP diastolic 52–63
[2018-04-15] MEDS: HYDROMORPHONE 2MG/ML 2 MG/ML ML IV PRN ×4 (05:35→18:25)
[2018-04-15] MEDS: ONDANSETRON HCL INJ 2 MG/ML VIAL IV PRN ×4 (05:35→18:25)
[2018-04-15] MEDS: DIPHENHYDRAMINE HCL 25 MG CAP PO SCH ×5 (05:35→22:06)
[2018-04-15] MEDS: MEROPENEM 500MG 500 MG in SODIUM CHLORIDE 0.9% 50ML 50 ML IV SCH (06:08)
[2018-04-15] MEDS: INSULIN REGULAR, HUMAN 100 UNIT/1 ML 3ML VIAL SQ SCH ×4 (08:11→20:48)
[2018-04-15] MEDS: ATENOLOL 50 MG TAB PO SCH ×2 (08:11→16:55)
[2018-04-15] MEDS: HYDROCHLOROTHIAZIDE 25 MG TAB PO SCH (08:11)
[2018-04-15] MEDS: COLLAGENASE OINTMENT 30 GM TUBE TP SCH ×2 (09:00→23:00)
[2018-04-15] MEDS: MEROPENEM 500MG/ NS 50ML 50 ML IV SCH ×2 (14:05→21:21)
[2018-04-16] MEDS: HYDROMORPHONE 2MG/ML 2 MG/ML ML IV PRN ×3 (00:10→10:15)
[2018-04-16] MEDS: ONDANSETRON HCL INJ 2 MG/ML VIAL IV PRN ×3 (00:10→10:15)
[2018-04-16 00:46] VITALS: BP 144/77
[2018-04-16] MEDS: DIPHENHYDRAMINE HCL 25 MG CAP PO SCH ×2 (05:25→06:39)
[2018-04-16 06:21] VITALS: BP 134/62
[2018-04-16] MEDS: MEROPENEM 500MG/ NS 50ML 50 ML IV SCH (06:21)
[2018-04-16] MEDS: INSULIN REGULAR, HUMAN 100 UNIT/1 ML 3ML VIAL SQ SCH (07:55)
[2018-04-16 08:30] VITALS: BP 131/66
[2018-04-16] MEDS: ATENOLOL 50 MG TAB PO SCH (08:47)
[2018-04-16] MEDS: HYDROCHLOROTHIAZIDE 25 MG TAB PO SCH (08:47)
[2018-04-16 09:31] VITALS: BP 131/66
[2018-04-16] MEDS ORDERED: DOXYCYCLINE HY100 MG PO (10:35)
[2018-04-16] MEDS ORDERED: CIPRO500 MG PO (10:36)
== END 2018-04-16 11:03 | disposition home or self-care (01) | DRG 872 ==
LOC: ER 14:49 → ERHOLD 16:03 → MED/SURG2 18:16
PROVIDERS: ADMIT Internal Medicine; ATTEND Internal Medicine
PROC: 02HV33Z Insertion of Infusion Device into Superior Vena Cava, Percutaneous Approach (ICD-10-PCS; principal; 2018-04-11)
DX: A41.9 Sepsis, unspecified organism (principal); L03.116 Cellulitis of left lower limb; L03.115 Cellulitis of right lower limb; I89.0 Lymphedema, not elsewhere classified; E11.9 Type 2 diabetes mellitus without complications; M32.9 Systemic lupus erythematosus, unspecified
CPT/HCPCS: 36415; 36569; 71045; 76705; 80053; 80061; 81001; 82550; 82553; 82948; 83036; 83605; 83690; 84484; 85025; 85610; 85730; 87040; 87086; 93971; 96372; 99284; J0692; J1885; J2020; J2185; J2270; J2405; J2543; J2930; J7030; J7050

== ENCOUNTER 2018-11-17 17:16 | Inpatient (IN) | payer OTHER ==
[~2018-11-17] VITALS: Ht 162.6 cm; Wt 77.1 kg
[~2018-11-17 17:16] MED LIST changes: +CIPRO500 MG PO
[2018-11-17] MEDS ORDERED: MEROPENEM 1GRAM 1 GM in SODIUM CHLORIDE 0.9% 100 ML 100 ML IV ONE (18:15)
[2018-11-17] MEDS ORDERED: DIPHENHYDRAMINE HCL INJ 50 MG/ML VIAL IV ONE ×2 (18:15→19:45)
[2018-11-17] MEDS ORDERED: MEROPENEM 1GM 100 ML IV ONE (18:30)
--- NOTE | 2018-11-17 18:52 | Diagnostic Imaging Report ---
RIGHT FOOT - 3 Image(s) HISTORY: Infection, ulcers edema COMPARISON: None available. FINDINGS: Bones: No acute displaced fracture. No aggressive osseous lesion. Joints: Osseous alignment is within normal limits and the joint spaces are well-maintained. Soft tissues: Marked soft tissue prominence, most notably the dorsal aspect of the foot. IMPRESSION: 1. Severe soft tissue edema. 2. No radiographic evidence of osteomyelitis. Signed by: Dr. Ritesh Ricks D.O., M.M.M. on 11/17/2018 6:49 PM
[2018-11-17 19:03] LABS: BASOPHILS # (AUTO) 0.1 (0.0-0.1); BASOPHILS % 0.4 % (0.0-1.0); EOSINOPHILS # (AUTO) 0.1 (0.0-0.4); EOSINOPHILS % 0.6 % (0.0-6.0); HEMATOCRIT 36.6 % (34.2-44.1); HEMOGLOBIN 12.3 g/dL (12.0-16.0); LYMPHOCYTES % 19.2 % (18.0-39.1); MEAN CORPUSCULAR HEMOGLOBIN 34.9 pg (28-32); MEAN CORPUSCULAR HGB CONC 33.6 g/dL (31-35); MONOCYTES % 6.6 % (4.4-11.3); NEUTROPHILS % 71.2 % (38.7-80.0); PLATELET COUNT 397 x10e3/uL (140-360); RED BLOOD COUNT 3.52 x10e6/uL (3.6-5.1); RED CELL DISTRIBUTION WIDTH 14.6 % (11.7-14.4)
[2018-11-17 19:25] LABS: ALANINE AMINOTRANSFERASE 95 IU/L (0-55); ALBUMIN 3.1 g/dL (3.5-5.0); ALBUMIN/GLOBULIN RATIO 0.9 (0.8-2.0); ALKALINE PHOSPHATASE 100 IU/L (40-150); ANION GAP 15.3 mmol/L (8-16); BLOOD UREA NITROGEN 6 mg/dL (7-26); BUN/CREATININE RATIO 8 (6-25); CALCIUM 9.1 mg/dL (8.4-10.2); CARBON DIOXIDE 25 mmol/L (22-29); CHLORIDE 106 mmol/L (98-107); CREATININE, SERUM 0.77 mg/dL (0.57-1.11); EST GLOMERULAR FILTRATION RATE > 60 ML/MIN (60-); GLUCOSE 97 mg/dL (74-118); POTASSIUM 4.3 mmol/L (3.5-5.1); SODIUM 142 mmol/L (136-145)
[2018-11-17] MEDS: ONDANSETRON HCL INJ 2MG/ML 2ML 2 MG/ML VIAL IV PRN (19:42)
[2018-11-17] MEDS: HYDROMORPHONE 1MG/1ML INJ IV PRN ×2 (19:42→23:16)
--- NOTE | 2018-11-17 20:55 | Diagnostic Imaging Report ---
CT scan of the RIGHT FOOT, WITHOUT injected contrast. TECHNIQUE: Standard departmental protocols were used. Sagittal and coronal reformatted images were obtained. HISTORY: Lupus flare, infection, swelling, ulcers COMPARISON: Right foot radiographs November 17, 2018. FINDINGS: Bones: No acute displaced fracture. No aggressive osseous lesion or osseous erosion. Joints: No malalignment. Soft tissues: Severe soft tissue edema, most notably the dorsal soft tissues. Ill-defined hyperdensity within the dorsal soft tissue edema may reflect evolving contusion/ill-defined hematoma. IMPRESSION: Severe soft tissue edema, most notably the dorsal aspect of the foot with possible central evolving contusion/ill-defined hematoma. Signed by: Dr. Ritesh Ricks D.O., M.M.M. on 11/17/2018 8:51 PM
[2018-11-17] MEDS: SODIUM CHLORIDE 0.9% 1000ML 1,000 ML IV SCH (23:07)
--- NOTE | 2018-11-17 23:30 | NUR ---
PLACED PT ON WAFFLE FOR COMFORT. PT REFUSED HOSPITAL BED.
[2018-11-18] MEDS ORDERED: SANTYL (00:22)
[2018-11-18] MEDS ORDERED: CYCLOBENZAPRINE10 MG PO (00:22)
[2018-11-18] MEDS ORDERED: ZOLPIDEM TARTRA10 MG PO (00:22)
[2018-11-18] MEDS ORDERED: ONE TOUCH ULTR1 EACH (00:22)
[2018-11-18] MEDS ORDERED: EPINEPHRIN0.3 MG/0.3 (00:22)
[2018-11-18] MEDS ORDERED: ALPRAZOLAM0.25 MG PO (00:22)
[2018-11-18] MEDS ORDERED: HYDROCODON-ACE1 EAC9 (00:22)
[2018-11-18] MEDS ORDERED: LISINOPRIL2.5 MG PO (00:22)
[2018-11-18] MEDS ORDERED: GLIMEPIRIDE4 MG PO (00:22)
[2018-11-18] MEDS ORDERED: VENTOLIN HFA18 GM PO (00:22)
[2018-11-18] MEDS ORDERED: FUROSEMIDE40 MG PO (00:22)
[2018-11-18] MEDS: HYDROMORPHONE 1MG/1ML INJ IV PRN ×5 (02:59→20:15)
[2018-11-18] MEDS: ONDANSETRON HCL INJ 2MG/ML 2ML 2 MG/ML VIAL IV PRN ×2 (02:59→09:36)
[2018-11-18] MEDS ORDERED: FUROSEMIDE 40 MG TAB PO PRN (03:15)
[2018-11-18] MEDS ORDERED: PROMETHAZINE HCL 25 MG TAB PO PRN (03:15)
[2018-11-18] MEDS ORDERED: ALPRAZOLAM 0.25 MG TAB PO PRN (03:15)
[2018-11-18] MEDS ORDERED: ZOLPIDEM TARTRATE 10 MG TAB PO PRN (03:15)
[2018-11-18] MEDS: SODIUM CHLORIDE 0.9% 1000ML 1,000 ML IV SCH ×3 (04:21→20:27)
--- NOTE | 2018-11-18 06:42 | History and Physical ---
REASON FOR ADMISSION: Right foot cellulitis. HISTORY OF PRESENT ILLNESS: The patient is a 48-year-old lady, well known to me with history of lupus, diabetes, and hypertension, who presented with a right lower extremity cellulitis secondary to chronic lymphedema that has been gone for the past few days. She had an ultrasound done that did not show any evidence of abscess. PAST MEDICAL HISTORY: Significant for lupus, diabetes, hypertension, and chronic pain. MEDICATIONS: See MAR. ALLERGIES: SEE MAR. SOCIAL HISTORY: Nonsmoker. Nondrinker. Lives at home. FAMILY HISTORY: Hypertension and breast cancer. PHYSICAL EXAMINATION: VITAL SIGNS: Temperature is 98.6, pulse 74, blood pressure 136/74, and sats 98% on room air. GENERAL: No apparent distress, lying in bed. NECK: Supple. CARDIOVASCULAR: Regular rate and rhythm. LUNGS: Clear to auscultation bilaterally. ABDOMEN: Good bowel sounds. Soft and nontender. EXTREMITIES: No clubbing or cyanosis. Bilateral lower extremities show chronic lymphedema and the right foot actually shows evidence of cellulitis up to the mid velasquez area with no open areas, but a 3 cm area of fluid on the dorsal aspect of the foot and an ultrasound shows more of a hematoma. NEUROLOGIC: Nonfocal. ASSESSMENT AND PLAN: 1. Right lower extremity cellulitis. Continue with IV antibiotics. 2. Diabetes. Continue with current care monitoring. 3. Hypertension. Continue with current care monitoring. 4. Leukocytosis. Continue to monitor. 5. Lupus. Continue medications. Please see hospital chart for full details. MD SHARATH Sin/EDVIN /[id number]
[2018-11-18 07:34] LABS: BASOPHILS # (AUTO) 0.1 (0.0-0.1); BASOPHILS % 0.4 % (0.0-1.0); EOSINOPHILS # (AUTO) 0.1 (0.0-0.4); EOSINOPHILS % 0.9 % (0.0-6.0); HEMATOCRIT 35.2 % (34.2-44.1); HEMOGLOBIN 11.5 g/dL (12.0-16.0); LYMPHOCYTES # (AUTO) 2.2 (1.0-3.2); LYMPHOCYTES % 16.5 % (18.0-39.1); MEAN CORPUSCULAR HEMOGLOBIN 34.8 pg (28-32); MEAN CORPUSCULAR HGB CONC 32.7 g/dL (31-35); MEAN CORPUSCULAR VOLUME 106.7 fL (81-99); MONOCYTES % 7.2 % (4.4-11.3); NEUTROPHILS # (AUTO) 9.7 (2.1-6.9); NEUTROPHILS % 73.1 % (38.7-80.0); PLATELET COUNT 387 x10e3/uL (140-360); RED CELL DISTRIBUTION WIDTH 14.8 % (11.7-14.4)
[2018-11-18 07:52] LABS: ALANINE AMINOTRANSFERASE 88 IU/L (0-55); ALBUMIN 2.9 g/dL (3.5-5.0); ALBUMIN/GLOBULIN RATIO 0.9 (0.8-2.0); ALKALINE PHOSPHATASE 107 IU/L (40-150); ANION GAP 16.1 mmol/L (8-16); BLOOD UREA NITROGEN 7 mg/dL (7-26); BUN/CREATININE RATIO 8 (6-25); CALCIUM 8.7 mg/dL (8.4-10.2); CARBON DIOXIDE 25 mmol/L (22-29); CHLORIDE 107 mmol/L (98-107); CREATININE, SERUM 0.87 mg/dL (0.57-1.11); EST GLOMERULAR FILTRATION RATE > 60 ML/MIN (60-); GLUCOSE 138 mg/dL (74-118); POTASSIUM 4.1 mmol/L (3.5-5.1); SODIUM 144 mmol/L (136-145)
[2018-11-18] MEDS: GLIMEPIRIDE 2 MG TAB PO SCH (08:24)
[2018-11-18] MEDS: LISINOPRIL 2.5 MG TAB PO SCH (08:25)
[2018-11-18] MEDS: ATENOLOL 50 MG TAB PO SCH ×2 (08:25→17:30)
[2018-11-18] MEDS: MEROPENEM 1GM 100 ML IV SCH ×2 (09:15→17:30)
[2018-11-18] MEDS: DIPHENHYDRAMINE HCL INJ 50 MG/ML VIAL IV PRN ×3 (09:15→22:04)
--- NOTE | 2018-11-18 09:25 | NUR ---
PT REQUESTED PICC LINE DUE TO POOR VENOUS ACCESS; PER DR NARVAEZ ORDER PICC LINE; ORDER REPEATED BACK AND CONFIRMED
[2018-11-18] MEDS ORDERED: DIPHENHYDRAMINE HCL INJ 50 MG/ML VIAL IV PRN (09:30)
[2018-11-18] MEDS ORDERED: DIPHENHYDRAMINE HCL INJ 50 MG/ML VIAL IV ONE (10:30)
--- NOTE | 2018-11-18 17:05 | Diagnostic Imaging Report ---
Examination: Single AP view of the chest. COMPARISON: None. INDICATION: Line placement DISCUSSION: Lines/tubes: Right PICC line with tip over the SVC. Lungs: The lungs are well inflated and clear. No pneumonia or pulmonary edema. Pleura: No pleural effusion or pneumothorax. Heart and mediastinum: The heart and the mediastinum are unremarkable. Bones and soft tissues: No acute bony abnormalities. IMPRESSION: 1. Right PICC line with tip over the SVC. Signed by: Dr. Howard Willis M.D. on 11/18/2018 5:02 PM
[2018-11-18 18:06] VITALS: BP 129/81
--- NOTE | 2018-11-18 19:24 | NUR ---
Patient received sitting up in bed. AAO x 4. Patient had no complaints of pain. No signs of respiratory distress. Fall precautions implemented. Patient instructed to call for assistance when needed. Call light within reach.
[2018-11-18 20:00] VITALS: BP 157/78
[2018-11-18] MEDS: CYCLOBENZAPRINE HCL 10 MG TAB PO SCH (20:25)
[2018-11-18 21:00] VITALS: BP 157/78
--- NOTE | 2018-11-18 21:43 | NUR ---
Patient complained about itching post administration of Merrem. Dr. Cas munoz. New order received to give Benadryl 50 mg IV before and after Merrem administration.
[2018-11-19] VITALS (8 sets, daily range): BP systolic 107–163; BP diastolic 59–83
[2018-11-19] MEDS: HYDROMORPHONE 1MG/1ML INJ IV PRN ×7 (00:03→21:43)
[2018-11-19] MEDS: DIPHENHYDRAMINE HCL INJ 50 MG/ML VIAL IV PRN ×4 (00:57→10:00)
[2018-11-19] MEDS: MEROPENEM 1GM 100 ML IV SCH ×3 (01:59→17:13)
--- NOTE | 2018-11-19 04:05 | NUR ---
Dr. Suggs paged regarding being a routine "Consult" for patient. Reason: Cellulitis. Awaiting call back.
--- NOTE | 2018-11-19 07:06 | NUR ---
Walking rounds performed. Shift report given to oncoming nurse.
--- NOTE | 2018-11-19 07:08 | NUR ---
pt asleep resp even and unlabored at this time no distress noted pt easily aroused to name and call light, in reach
[2018-11-19] MEDS: ONDANSETRON HCL INJ 2MG/ML 2ML 2 MG/ML VIAL IV PRN (08:11)
[2018-11-19] MEDS: GLIMEPIRIDE 2 MG TAB PO SCH (08:34)
[2018-11-19] MEDS: LISINOPRIL 2.5 MG TAB PO SCH (08:40)
[2018-11-19] MEDS: ATENOLOL 50 MG TAB PO SCH ×2 (08:41→17:14)
[2018-11-19] MEDS: COLLAGENASE 5 GM TUBE TOP SCH (08:41)
--- NOTE | 2018-11-19 19:46 | NUR ---
report given to oncoming nurse, pt stable.
--- NOTE | 2018-11-19 19:46 | NUR ---
report given to oncoming nurse, pt stable.
--- NOTE | 2018-11-19 19:50 | NUR ---
Patient received lying in bed. AAO x 4. No acute distress noted. Call light within reach.
[2018-11-19] MEDS: CYCLOBENZAPRINE HCL 10 MG TAB PO SCH (21:43)
--- NOTE | 2018-11-19 23:30 | Consultation ---
DATE OF CONSULTATION: REASON FOR CONSULTATION: Cellulitis of the right leg. HISTORY OF PRESENT ILLNESS: This patient is a 48-year-old white female, history of severe lupus for more than 10 years with chronic steroid, also history of hypertension, history of diabetes, history of severe neuropathy, history of Charcot joint, recurrent infection, bilateral lower extremity lymphedema with venous stasis ulcers. The patient does her own care with Santyl gel and she has pump at the house as well as stocking. She is coming with redness and swelling of her right leg more so than usual, also the ulcer is getting worse, so the patient is being admitted. The patient was here back in March with similar problem. PAST MEDICAL HISTORY: Hypertension, diabetes mellitus, systemic lupus erythematosus, history of Lyme disease several years ago, possible lymphedema, chronic bilateral lower extremity lymphedema, chronic bilateral lower extremity edema. PAST SURGICAL HISTORY: She has multiple leg surgeries and toe surgeries. ALLERGIES: NKA. SOCIAL HISTORY: There is no smoking, drug abuse, or alcohol abuse. FAMILY HISTORY: Hypertension. REVIEW OF SYSTEMS: HEENT: Negative. PULMONARY: Negative. CARDIAC: Negative. : Negative. SKIN: There are no other rashes. There is nothing new. As mentioned above. JOINTS: She does have chronic aches and pain. MEDICATION LIST: She is currently on: 1. Dilaudid. 2. Santyl collagenase. 3. Atenolol. 4. Prinivil. 5. Meropenem. 6. Lasix. LABORATORY DATA: Blood cultures negative. White count on admission was 15.49, came down to 15.25, hemoglobin 11, hematocrit 35, platelets 387. Sodium 144, potassium 4.1, creatinine 0.87, glucose 138. PHYSICAL EXAMINATION: GENERAL: She is currently alert, oriented, does not seem to be in acute distress. VITAL SIGNS: Stable, currently afebrile. HEENT: She is normocephalic, not icteric. NECK: Supple. No JVD. No lymphadenopathy. No thyromegaly. CHEST: Clear bilateral. HEART: S1, S2. No S3, S4, or murmur. ABDOMEN: Soft. Bowel sounds present. No tenderness. EXTREMITIES: She has deformity of bilateral ankles consistent with Charcot joint. She also has erythema and edema of bilateral lower extremities, but mainly on the right. There is some subcutaneous hematoma, ecchymosis noted on the dorsal aspect of the right foot. Ulcer noted on bilateral lower extremities about 3 x 2 cm superficial. IMPRESSION: 1. Cellulitis of the right leg, clinically getting better, also on the left leg. 2. The patient has bilateral lower extremity lymphedema. 3. Bilateral lower extremity chronic venous stasis ulcer. 4. History of lupus. 5. Charcot joint. 6. Diabetes mellitus. On steroid. She is currently on meropenem. I will suggest to change her to Rocephin 1 g a day. Continue with local care. Keep the feet elevated. Bilateral compression stockings to both lower extremities to reduce the edema. Discussed with the patient, answered all her questions. We will follow with you. MD EMELIA Turner/EDVIN /[id number]
[2018-11-20] VITALS (9 sets, daily range): BP systolic 109–157; BP diastolic 62–79
[2018-11-20] MEDS: DIPHENHYDRAMINE HCL INJ 50 MG/ML VIAL IV PRN ×6 (00:49→19:21)
[2018-11-20] MEDS: MEROPENEM 1GM 100 ML IV SCH ×3 (01:29→16:55)
[2018-11-20] MEDS: HYDROMORPHONE 1MG/1ML INJ IV PRN ×4 (01:48→21:36)
[2018-11-20] MEDS ORDERED: ACETAMINOPHEN 325 MG TAB PO PRN (05:00)
[2018-11-20 05:40] LABS: BASOPHILS # (AUTO) 0.1 (0.0-0.1); BASOPHILS % 0.4 % (0.0-1.0); EOSINOPHILS # (AUTO) 0.2 (0.0-0.4); EOSINOPHILS % 1.3 % (0.0-6.0); HEMATOCRIT 34.4 % (34.2-44.1); HEMOGLOBIN 11.1 g/dL (12.0-16.0); LYMPHOCYTES # (AUTO) 2.1 (1.0-3.2); LYMPHOCYTES % 17.9 % (18.0-39.1); MEAN CORPUSCULAR HEMOGLOBIN 34.4 pg (28-32); MEAN CORPUSCULAR HGB CONC 32.3 g/dL (31-35); MEAN CORPUSCULAR VOLUME 106.5 fL (81-99); MONOCYTES # (AUTO) 0.8 (0.2-0.8); MONOCYTES % 6.6 % (4.4-11.3); NEUTROPHILS # (AUTO) 8.6 (2.1-6.9); NEUTROPHILS % 72.3 % (38.7-80.0); PLATELET COUNT 343 x10e3/uL (140-360); RED BLOOD COUNT 3.23 x10e6/uL (3.6-5.1); RED CELL DISTRIBUTION WIDTH 14.6 % (11.7-14.4)
--- NOTE | 2018-11-20 06:11 | NUR ---
Dr. Erika Be paged regarding "Routine Consult". Reason: Right foot hematoma.
[2018-11-20 06:23] LABS: ALANINE AMINOTRANSFERASE 247 IU/L (0-55); ALBUMIN 2.8 g/dL (3.5-5.0); ALBUMIN/GLOBULIN RATIO 0.9 (0.8-2.0); ALKALINE PHOSPHATASE 238 IU/L (40-150); ANION GAP 13.8 mmol/L (8-16); BLOOD UREA NITROGEN 7 mg/dL (7-26); BUN/CREATININE RATIO 9 (6-25); CALCIUM 8.7 mg/dL (8.4-10.2); CARBON DIOXIDE 23 mmol/L (22-29); CHLORIDE 106 mmol/L (98-107); CREATININE, SERUM 0.79 mg/dL (0.57-1.11); EST GLOMERULAR FILTRATION RATE > 60 ML/MIN (60-); GLUCOSE 92 mg/dL (74-118); MAGNESIUM 2.1 MG/DL (1.3-2.1); POTASSIUM 3.8 mmol/L (3.5-5.1); SODIUM 139 mmol/L (136-145)
--- NOTE | 2018-11-20 07:00 | NUR ---
Walking rounds done. Shift report given to oncoming nurse regarding patient.
--- NOTE | 2018-11-20 07:10 | NUR ---
RCD PT AT BED PT IS ALERT AND ORIENTED RESTING ON BED NO SIGNS OF ANY DISTRESS NOTED IV PATENT BY SALINE FLUSH BED LOW AND LOCKED CALL LIGHT IN REACH
[2018-11-20] MEDS: GLIMEPIRIDE 2 MG TAB PO SCH (08:00)
[2018-11-20] MEDS: LISINOPRIL 2.5 MG TAB PO SCH (09:00)
[2018-11-20] MEDS: ATENOLOL 50 MG TAB PO SCH ×2 (09:00→16:55)
[2018-11-20] MEDS: COLLAGENASE 5 GM TUBE TOP SCH (09:00)
[2018-11-20] MEDS: ONDANSETRON HCL INJ 2MG/ML 2ML 2 MG/ML VIAL IV PRN ×2 (09:37→14:57)
--- NOTE | 2018-11-20 11:05 | NUR ---
WOUND CARE NURSE INITIAL CONSULTATION. 79 YEAR OLD FEMALE ADMITTED TO [facility] WITH DX OF RIGHT LOWER LUNG PNEUMONIA AND NSTEMI. HEAD TO TOE SKIN ASSESSMENT PERFORMED TODAY. ECCHYMOSIS TO BILATERAL LOWER AND UPPER EXTREMITIES IS PRESENT. PT ON BLOOD THINNERS. BLANCHABLE REDNESS TO SACRUM. NO OPEN AREAS NOTED AT THIS TIME. LABS: WBC: 8.57 ALB: 2.8 RECOMMENDATIONS: MONITOR ECCHYMOSIS TO BILATERAL UPPER AND LOWER EXTREMITIES DAILY. PROVIDE PT WITH HEEL PROTECTORS AND PILLOW SUSPENSIONS WHILE IN BED. ENCOURAGE PT TO REPOSITION EVERY TWO HOURS AND PRN. ALLEVYN FOAM TO SACRUM DAILY FOR PROTECTION THANKS FOR THIS CONSULTATION. Addendum: 11/20/18 at 1120 by Nancy Selby RN Amended: Links added. Addendum: 11/20/18 at 1135 by Nancy Selby RN WRONG CHART. DISREGARD THIS ASSESSMENT. SEE NEW ONE.
--- NOTE | 2018-11-20 15:34 | NUR ---
WOUND CARE NURSE INITIAL CONSULTATION. 48 YEAR OLD FEMALE ADMITTED TO [facility] WITH DX OF CELLULITIS AND ABSCESS TO RIGHT FOOT. HEAD TO TOE SKIN ASSESSMENT PERFORMED TODAY. PT PRESENTS WITH 4+PITTING EDEMA AND CELLULITIS TO BILATERAL LOWER EXTREMITIES, RIGHT DORSAL FOOT HEMATOMA AND LEFT LOWER LEG VENOUS ULCER, WHICH MEASURES APPROXIMATELY 2.8X3X0.4CM. 90% SLOUGH TO WOUND BASE. HX OF LYME DISEASE, LUPUS, LYMPHEDEMA, VENOUS INSUFFICIENCY AND VENOUS ULCERS. PER PT SHE HAS BEEN USING SANTYL WITH HYDROGEL AND ULCER HAS IMPROVED SIGNIFICANTLY. DR. DORSEY CONSULTED FOR RIGHT FOOT HEMATOMA. LABS: WBC: 11.82 ALB: 2.8 GLUCOSE: 102 BLOOD CX RESULTS ARE PENDING. RECOMMENDATIONS: PROVIDE PT WITH HEEL PROTECTORS AND PILLOW SUSPENSIONS WHILE IN BED. ENCOURAGE PT TO REPOSITION EVERY TWO HOURS AND PRN. CLEAN LEFT LOWER LEG WITH NS, APPLY SANTYL WITH HYDROGEL AND COVER WITH FOAM DRESSING. CHANGE DRESSING DAILY. THANKS FOR THIS CONSULTATION. Addendum: 11/20/18 at 1549 by Nancy Selby RN Amended: Links added.
--- NOTE | 2018-11-20 16:46 | NUR ---
Nutrition Screen Note RD Recommendation for Physician: Continue diet as ordered Plan of Care: RD following, monitoring for tolerance and adequacy Nutrition reason for involvement: Nutrition Risk Trigger MST Primary Diagnose(s): cellulitis and abscess to right foot PMH: Hypertension, diabetes mellitus, systemic lupus erythematosus, Lyme disease several years ago, chronic bilateral lower extremity lymphedema Ht: 64in Wt: 173lb BMI: 29.7kg/m2 IBW: 120lb+/- 10% RD Assessment: (11/20) Chart reviewed. Labs and meds reviewed. 48yo F, who was admitted for R foot cellulitis and abscess. Visited pt in the room. Pt complained of not liking the foods here. Pt didnt understand why she was placed on cardiac diet. Explained the purpose of cardiac diet. Pt also denied hx of diabetes. Pt was getting upset and not wanting to talk to me. Noted cups from [employer], soda and snacks on bedside. PCT recorded 75-100% meal intake since admission. No nutrition concern at this time. Will re-visit when consulted. Current Diet: cardiac diet Malnutrition Evaluation (11/20/2018) The patient does not meet criteria for a specified degree of malnutrition at this time. Will re-evaluate at follow-up as appropriate. Diet Education Needs Assessment: Diet education not indicated. Nutrition Care Level: low Signed: Pat Mims, MS, RD, LD
--- NOTE | 2018-11-20 19:12 | NUR ---
PT RESTING ON BED BED SIDE REPORT GIVEN TO ONCOMING NURSE
--- NOTE | 2018-11-20 19:20 | NUR ---
Patient received sitting in bed. AAO x 4. No c/o pain. Respirations even and non-labored. Dressing to bilateral feet CDI. Safety measures in place. Patient instructed to call for assistance when needed. Call light within reach.
--- NOTE | 2018-11-20 20:05 | Consultation ---
DATE OF CONSULTATION: CHIEF COMPLAINT AND HISTORY OF CHIEF COMPLAINT: This most pleasant 48-year-old female presented to Dr. Cardozo, her regular medical doctor, with chronic lymphedema for the past several days, noticing increased swelling, bruising, and redness on the right lower extremity. PAST MEDICAL HISTORY: She has a history of chronic wounds with previous medical history includes lupus, diabetes, hypertension, and chronic pain. She has been on steroids for several years and has a 10+ year history of lupus. MEDICATIONS: The patient's current medications, please see MAR. ALLERGIES: PLEASE SEE MAR. SOCIAL HISTORY: The patient does not smoke or drink alcohol. She does live at home with her . FAMILY HISTORY: Includes hypertension and breast cancer. PHYSICAL EXAMINATION: EXTREMITIES: Her physical evaluation of lower extremity vascular status, the patient has nonpalpable pedal pulses primarily due to standing lymphedema. Capillary refill is adequate to digital pressure. NEUROLOGIC: She appears to be grossly intact and symmetrical. DERMATOLOGIC: She has multiple wounds present. She does her own local wound care at home with a mixture of Santyl and Hydrogel with minimal debridements. The anterior legs bilaterally have dressed wounds that according to the patient are basically healed, but she continues to apply appropriate protective dressings with the wound care regimen. The dorsum of both feet are edematous with a fluctuant mass. There is cellulitis to the right lower extremity with associated bruising and one area of mild necrosis to the proximal dorsum of the foot. The patient states, the edema is down significantly since her admission through the emergency room two days ago. DIAGNOSES: Right lower extremity cellulitis with underlying hematoma. She has currently been treated with IV antibiotics. She does not have a dressing on the foot as she states she has difficulty with most topical preparations and can tolerate minimal pressure. I would recommend, we attempt a compressive wrap with loosely applied Kerlix to bilateral lower extremities followed by an Earl bandage with minimal compression. We will apply this from snug to lose distal proximal to compress the underlying fluid. Wound Care will be consulted to perform these wraps in a mildly compressive manner and I will re-evaluate after applied. The patient understands and is on board with this plan and we will avoid any incisions or drainage at this time to avoid the creation of a wound that would certainly be difficult to heal in this patient and yet hopefully achieve the goal of decompressing the lower extremity with external compression. GE Slaughter /[id number]
[2018-11-20] MEDS: COLLAGENASE OINTMENT 30 GM TUBE TP SCH (21:00)
[2018-11-20] MEDS: CYCLOBENZAPRINE HCL 10 MG TAB PO SCH (21:36)
[2018-11-21] MEDS: DIPHENHYDRAMINE HCL INJ 50 MG/ML VIAL IV PRN ×5 (01:59→18:32)
[2018-11-21] MEDS: MEROPENEM 1GM 100 ML IV SCH ×3 (02:20→16:54)
[2018-11-21] MEDS: HYDROMORPHONE 1MG/1ML INJ IV PRN ×5 (02:35→22:44)
[2018-11-21 04:25] VITALS: BP 149/81
[2018-11-21 05:42] LABS: BASOPHILS # (AUTO) 0.1 (0.0-0.1); BASOPHILS % 0.5 % (0.0-1.0); EOSINOPHILS # (AUTO) 0.2 (0.0-0.4); EOSINOPHILS % 1.4 % (0.0-6.0); HEMATOCRIT 35.9 % (34.2-44.1); HEMOGLOBIN 11.7 g/dL (12.0-16.0); LYMPHOCYTES # (AUTO) 2.3 (1.0-3.2); MEAN CORPUSCULAR HEMOGLOBIN 34.3 pg (28-32); MEAN CORPUSCULAR HGB CONC 32.6 g/dL (31-35); MEAN CORPUSCULAR VOLUME 105.3 fL (81-99); MONOCYTES # (AUTO) 0.9 (0.2-0.8); MONOCYTES % 7.9 % (4.4-11.3); NEUTROPHILS # (AUTO) 7.4 (2.1-6.9); NEUTROPHILS % 67.5 % (38.7-80.0); PLATELET COUNT 349 x10e3/uL (140-360); RED BLOOD COUNT 3.41 x10e6/uL (3.6-5.1); RED CELL DISTRIBUTION WIDTH 14.6 % (11.7-14.4)
[2018-11-21 06:02] LABS: ALANINE AMINOTRANSFERASE 211 IU/L (0-55); ALBUMIN/GLOBULIN RATIO 0.9 (0.8-2.0); ALKALINE PHOSPHATASE 260 IU/L (40-150); ANION GAP 15.8 mmol/L (8-16); BLOOD UREA NITROGEN 6 mg/dL (7-26); BUN/CREATININE RATIO 8 (6-25); CALCIUM 8.9 mg/dL (8.4-10.2); CARBON DIOXIDE 23 mmol/L (22-29); CHLORIDE 106 mmol/L (98-107); CREATININE, SERUM 0.76 mg/dL (0.57-1.11); EST GLOMERULAR FILTRATION RATE > 60 ML/MIN (60-); GLUCOSE 94 mg/dL (74-118); MAGNESIUM 2.1 MG/DL (1.3-2.1); POTASSIUM 3.8 mmol/L (3.5-5.1); SODIUM 141 mmol/L (136-145)
--- NOTE | 2018-11-21 07:00 | NUR ---
Patient resting comfortably. Walking rounds done. Shift report given to oncoming nurse.
[2018-11-21 07:59] VITALS: BP 153/79
[2018-11-21] MEDS: GLIMEPIRIDE 2 MG TAB PO SCH (08:00)
[2018-11-21] MEDS: ONDANSETRON HCL INJ 2MG/ML 2ML 2 MG/ML VIAL IV PRN ×4 (08:04→22:44)
[2018-11-21] MEDS: ATENOLOL 50 MG TAB PO SCH ×2 (09:00→16:54)
[2018-11-21] MEDS: COLLAGENASE OINTMENT 30 GM TUBE TP SCH ×3 (09:00→21:00)
[2018-11-21] MEDS: LISINOPRIL 2.5 MG TAB PO SCH (09:00)
[2018-11-21 09:07] VITALS: BP 153/79
--- NOTE | 2018-11-21 09:42 | Diagnostic Imaging Report ---
Right upper quadrant ultrasound History: abnormal liver function tests Comparison: 04/10/2018 Findings: The liver demonstrates increased background echotexture. The hepatic contour appears unremarkable. No hepatic mass or intrahepatic biliary dilation is seen. The patient is status post cholecystectomy. No sonographic Cid's sign. Common bile duct measures 6.8mm. The main portal vein appears patent and measures 10 mm in diameter. The pancreas is unremarkable as visualized. The tail portion of the pancreas is not well seen, likely due to overlying bowel gas. The right kidney demonstrates no evidence of hydronephrosis, calculus, or mass. The right kidney measures 10.0 x 4.2 x 3.7 cm. Impression: 1. Diffuse hepatic steatosis. 2. Status post cholecystectomy. Signed by: Juan Carlos Howard MD on 11/21/2018 8:09 AM
--- NOTE | 2018-11-21 10:00 | NUR ---
PT REFUSED DRESSING CHANGE SHE SAID WOUND CARE COMING TO DO THE DRESSING
--- NOTE | 2018-11-21 11:30 | NUR ---
AC TO [employer]INE FEEDER PAGED DR BOWEN TO TO ASK REGARDING THE HOME HEALTH AT HOME FOR IV ANTIBIOTICS
--- NOTE | 2018-11-21 11:40 | NUR ---
NONA HANNA RETURNED CALL AND HE SAID HE WILL CALL BACK
[2018-11-21 12:00] VITALS: BP 116/60
--- NOTE | 2018-11-21 14:00 | NUR ---
YOSSI HANNA HE DIDN'T CALL BACK TALKED TO DEVOPS SOLUTIONS ARCHITECT REGARDING THIS SHE SAID SHE WAITING TO DR BOWEN
[2018-11-21 15:55] VITALS: BP 126/77
--- NOTE | 2018-11-21 18:30 | NUR ---
PT C/O DIARRHEA FOR 6 TIMES P[address] AND NOTIFIED [address] NARVAEZ GOT NEW ORDERS
[2018-11-21] MEDS: LOPERAMIDE HCL 2 MG CAP PO PRN (18:41)
--- NOTE | 2018-11-21 18:55 | NUR ---
PT RESTING ON BED BED SIDE REPORT GIVEN TO ONCOMING NURSE
--- NOTE | 2018-11-21 19:48 | NUR ---
Received change of shift report from AM nurse. Walking rounds completed.
[2018-11-21 20:00] VITALS: BP 136/67
[2018-11-21] MEDS: CYCLOBENZAPRINE HCL 10 MG TAB PO SCH (20:27)
[2018-11-22] VITALS (7 sets, daily range): BP systolic 109–164; BP diastolic 57–73
[2018-11-22] MEDS: DIPHENHYDRAMINE HCL INJ 50 MG/ML VIAL IV PRN ×5 (00:40→17:38)
[2018-11-22] MEDS: MEROPENEM 1GM 100 ML IV SCH ×3 (01:00→18:26)
--- NOTE | 2018-11-22 05:37 | NUR ---
Blood drawn and sent to lab.
[2018-11-22 05:59] LABS: BASOPHILS # (AUTO) 0.1 (0.0-0.1); BASOPHILS % 0.4 % (0.0-1.0); EOSINOPHILS # (AUTO) 0.2 (0.0-0.4); EOSINOPHILS % 1.4 % (0.0-6.0); HEMATOCRIT 37.2 % (34.2-44.1); HEMOGLOBIN 12.2 g/dL (12.0-16.0); LYMPHOCYTES # (AUTO) 2.6 (1.0-3.2); MEAN CORPUSCULAR HEMOGLOBIN 34.4 pg (28-32); MEAN CORPUSCULAR HGB CONC 32.8 g/dL (31-35); MEAN CORPUSCULAR VOLUME 104.8 fL (81-99); MONOCYTES # (AUTO) 0.9 (0.2-0.8); MONOCYTES % 7.6 % (4.4-11.3); NEUTROPHILS # (AUTO) 7.9 (2.1-6.9); PLATELET COUNT 380 x10e3/uL (140-360); RED BLOOD COUNT 3.55 x10e6/uL (3.6-5.1); RED CELL DISTRIBUTION WIDTH 14.7 % (11.7-14.4)
[2018-11-22 06:19] LABS: ALANINE AMINOTRANSFERASE 145 IU/L (0-55); ALBUMIN 2.9 g/dL (3.5-5.0); ALBUMIN/GLOBULIN RATIO 0.9 (0.8-2.0); ALKALINE PHOSPHATASE 232 IU/L (40-150); BLOOD UREA NITROGEN 6 mg/dL (7-26); BUN/CREATININE RATIO 8 (6-25); CARBON DIOXIDE 24 mmol/L (22-29); CHLORIDE 105 mmol/L (98-107); CREATININE, SERUM 0.76 mg/dL (0.57-1.11); EST GLOMERULAR FILTRATION RATE > 60 ML/MIN (60-); GLUCOSE 117 mg/dL (74-118); SODIUM 140 mmol/L (136-145)
--- NOTE | 2018-11-22 08:58 | NUR ---
WOUND TREATMENT DRESSING CHANGE: DRESSINGS CHANGED TO BILATERAL LOWER LEGS PER DR. DORSEY'S ORDERS. EDEMA MEASUREMENTS FOR LEFT LEG ARE 25.5, 28, 37CM; RIGHT LEG EDEMA MEASUREMENTS ARE 26, 29, 39.5CM. 3+ PITTING EDEMA NOTED TO BILATERAL LOWER LEGS; UNABLE TO PALPATE PULSES DUE TO CURRENT EDEMA. PATIENT HAS A LEFT LATERAL LEG VENOUS ULCER MEASURING 2.3X2.5X0.3CM, 70% SLOUGH COVERING WOUND BED. DRESSING CHANGE PERFORMED. PATIENT'S LEGS WASHED WITH SOAP AND WATER, PAT DRY, LOTION APPLIED, MESALT TO LEFT LOWER LEG VENOUS ULCER, THEN LIGHT COMPRESSION WITH KERLIX AND IMELDA WRAP TO BILATERAL LOWER LEGS APPLIED. PATIENT TOLERATED PROCEDURE WELL. DRESSING DRY, CLEAN AND INTACT. Addendum: 11/22/18 at 0907 by Zulay Mccoy RN Amended: Links added.
[2018-11-22] MEDS: GLIMEPIRIDE 2 MG TAB PO SCH (09:20)
[2018-11-22] MEDS: ATENOLOL 50 MG TAB PO SCH ×2 (09:20→17:38)
[2018-11-22] MEDS: LISINOPRIL 2.5 MG TAB PO SCH (09:20)
[2018-11-22] MEDS: HYDROMORPHONE 1MG/1ML INJ IV PRN ×4 (09:20→23:31)
[2018-11-22] MEDS ORDERED: SODIUM CHLORIDE 0.9% 250ML 250 ML ONE (10:06)
[2018-11-22] MEDS: COLLAGENASE OINTMENT 30 GM TUBE TP SCH ×3 (11:09→21:00)
--- NOTE | 2018-11-22 20:00 | NUR ---
Received change of shift report from AM nurse. Walking rounds completed.
--- NOTE | 2018-11-22 20:41 | Progress Note ---
DATE: The patient is seen this evening on rounds, doing much better. She still has a central hematoma on the dorsum of the right foot, which is quite inflamed with purplish red and discoloration. The surrounding edema and erythema are markedly improved. She is continued on IV antibiotics and has had the appropriate local wound care with compressive wraps including Kerlix and Earl bandage. Dressing was removed from the right foot today for evaluation and although, she is markedly improved the central core of the dorsum of the right foot overlying the 2nd and 3rd metatarsals remains prominent. What would like to see is a continuation of the compressive wraps over the course of the next several days, along with IV antibiotics, looking toward discharge perhaps Tuesday if improvement continues at this phase. This was discussed with the patient. She is on board with the plan, rewrapped compressively this evening and follow with current course of care. Follow on an outpatient basis once discharged. GE Slaughter/EDVIN /[id number]
[2018-11-22] MEDS: CYCLOBENZAPRINE HCL 10 MG TAB PO SCH (20:53)
[2018-11-22] MEDS: ONDANSETRON HCL INJ 2MG/ML 2ML 2 MG/ML VIAL IV PRN (23:32)
[2018-11-23] VITALS (8 sets, daily range): BP systolic 121–149; BP diastolic 66–86
[2018-11-23] MEDS: DIPHENHYDRAMINE HCL INJ 50 MG/ML VIAL IV PRN ×6 (02:30→20:49)
[2018-11-23] MEDS: MEROPENEM 1GM 100 ML IV SCH ×3 (03:00→18:36)
[2018-11-23] MEDS: ONDANSETRON HCL INJ 2MG/ML 2ML 2 MG/ML VIAL IV PRN ×5 (03:56→23:09)
[2018-11-23] MEDS: HYDROMORPHONE 1MG/1ML INJ IV PRN ×5 (03:56→23:09)
--- NOTE | 2018-11-23 07:00 | NUR ---
BEDSIDE SHIFT REPORT RECEIVED FROM THE RECREATIONAL DIRECTOR RN. PT DENIES NEEDS AT THIS TIME.
[2018-11-23] MEDS: ATENOLOL 50 MG TAB PO SCH ×2 (08:38→18:00)
[2018-11-23] MEDS: LISINOPRIL 2.5 MG TAB PO SCH (08:38)
[2018-11-23] MEDS: GLIMEPIRIDE 2 MG TAB PO SCH (08:39)
[2018-11-23] MEDS: COLLAGENASE OINTMENT 30 GM TUBE TP SCH ×2 (10:00→21:00)
--- NOTE | 2018-11-23 10:00 | NUR ---
PT REFUSED COMPRESSION STOCKINGS.
--- NOTE | 2018-11-23 19:00 | NUR ---
BEDSIDE SHIFT REPORT GIVEN TO THE TEXTILE SCIENCE TECHNICIAN RN. PT DENIES NEEDS AT THIS TIME.
--- NOTE | 2018-11-23 19:26 | NUR ---
Patient received sitting up in bed. AAO x 4. Dressing to bilateral feet clean,dry and intact. Call light within reach.
[2018-11-23] MEDS: CYCLOBENZAPRINE HCL 10 MG TAB PO SCH (20:49)
--- NOTE | 2018-11-23 22:17 | Progress Note ---
DATE: SUBJECTIVE: The patient did well overnight. No new complaints. OBJECTIVE: VITAL SIGNS: Stable, afebrile. GENERAL: No apparent distress. CARDIOVASCULAR: Regular rate and rhythm. LUNGS: Clear to auscultation bilaterally. ABDOMEN: Good bowel sounds. Soft and nontender. EXTREMITIES: No clubbing or cyanosis. NEUROLOGIC: Nonfocal. Right foot is wrapped. ASSESSMENT AND PLAN: 1. Cellulitis. Continue with current care per Dr. Suggs. 2. Diabetes. Continue with current care. 3. Hypertension. Continue with current care. 4. Lupus. Continue with current care. Please see hospital chart for full details. MD SHARATH Sin/MODL /[id number]
[2018-11-24] VITALS (9 sets, daily range): BP systolic 113–142; BP diastolic 59–74
[2018-11-24] MEDS: DIPHENHYDRAMINE HCL INJ 50 MG/ML VIAL IV PRN ×4 (02:42→19:28)
[2018-11-24] MEDS: MEROPENEM 1GM 100 ML IV SCH ×3 (03:30→17:42)
[2018-11-24] MEDS: HYDROMORPHONE 1MG/1ML INJ IV PRN ×6 (03:45→23:08)
[2018-11-24] MEDS: ONDANSETRON HCL INJ 2MG/ML 2ML 2 MG/ML VIAL IV PRN ×4 (03:45→19:22)
--- NOTE | 2018-11-24 07:00 | NUR ---
BEDSIDE SHIFT REPORT RECEIVED FROM THE ALUMINUM CAN COLLECTOR RN. PT DENIES NEEDS AT THIS TIME.
--- NOTE | 2018-11-24 07:00 | NUR ---
Patient resting comfortably . Walking rounds done. Shift report given to oncoming nurse.
[2018-11-24] MEDS: ATENOLOL 50 MG TAB PO SCH ×2 (08:29→17:42)
[2018-11-24] MEDS: GLIMEPIRIDE 2 MG TAB PO SCH (08:29)
[2018-11-24] MEDS: LISINOPRIL 2.5 MG TAB PO SCH (09:00)
[2018-11-24] MEDS: COLLAGENASE OINTMENT 30 GM TUBE TP SCH ×2 (09:00→21:38)
--- NOTE | 2018-11-24 11:51 | Progress Note ---
DATE: SUBJECTIVE: The patient is a 48-year-old female with a history of bilateral lymphedema. The patient came in for cellulitis of lower extremity. She still has a central hematoma on the right dorsal foot, which is apparently better. Does still complain of pain and has been walking around. A consult with Dr. Troy Downs has also been done. The patient is currently is not completely pain-free and still has some pain. OBJECTIVE: VITAL SIGNS: Temperature is 97.1, T-max of 99.1, pulse of 70, blood pressure is 130/62, and O2 at room air 96%. HEENT: Normocephalic and atraumatic. Multiple ecchymoses present on the face, skin, on the upper extremities and lower extremities. CVS: S1 and S2 normal. Regular rate and rhythm. ABDOMEN: Nontender and nondistended. EXTREMITIES: Bilateral lower extremities with bandages on the lower extremities with a hematoma, large on the dorsum of the foot, tender and erythematous and also has warmth in it. LABORATORY VALUES: White count is 7000, RBC 3.55, hemoglobin of 12.2, and hematocrit 37.2. Chemistries; glucoses have been running in the 80s to 145. Coags not done. Microbiology, no growth last after five days final report. Imaging studies done, show extremity CT with severe soft-tissue edema with involving ill-defined hematoma. ASSESSMENT AND PLAN: 1. Bilateral lower extremity cellulitis. 2. Hematoma of the right lower extremity. 3. History of hyperglycemia. 4. Pain control. 5. Hypertension. The patient is currently on Merrem. A prescription for doxycycline has been seen on the chart as per ID. We will recommend ID recommendation. If okay, can be discharged home. Further recommendation per clinical course. We will continue to monitor the patient and we will follow up with Dr. Cardozo as an outpatient. MD TIKA Mills/EDVIN /[id number]
--- NOTE | 2018-11-24 12:04 | NUR ---
PT OFF UNIT FOR PROCEDURE IN SAFE CONDITION.
--- NOTE | 2018-11-24 12:14 | NUR ---
PT BACK TO UNIT. PT DENIES NEEDS AT THIS TIME.
--- NOTE | 2018-11-24 13:10 | NUR ---
DR. BOWEN AT BEDSIDE TO SEE THE PT. D/C PLAN AFTER THE US RESULT PER THE
--- NOTE | 2018-11-24 13:20 | NUR ---
DR. DORSEY AT BEDSIDE TO SEE THE PT. D/C PLAN AFTER THE US RESULT PER THE
--- NOTE | 2018-11-24 14:30 | NUR ---
ULTRA SOUND TECH AT BEDSIDE.
--- NOTE | 2018-11-24 15:56 | NUR ---
In to change compression wraps for patient. There are no compression wraps on the patient. An ultrasound was just completed. Patient showed pictures of her progress. Her R ant foot is red with a darkened spot in the middle. Patient states that Dr. Downs and Sheela are waiting to see if surgery is needed. She has a history with these ulcerations due to lupus. She wraps her legs routinely and has a compression pump at home. The area on the anterior foot is tender and patient wishes to leave her legs open at this time. Patient's nurse Dedrick is aware and will rewrap when patient is ready.
--- NOTE | 2018-11-24 16:07 | Progress Note ---
DATE: The patient is seen today, with continued complaints about the dorsum of the right foot, continued pain, continued swelling, some redness, however, this is markedly improved significantly less edema than she has had. She does state that the compressive wraps are somewhat uncomfortable. There is still an area of darkened bruising overlying the remaining mass on the dorsum of the right foot. There is also small ecchymotic lesion on the anterior aspect of the left leg closer to the knee. At this point, continued concern exists with possible drainable fluid within the area. Dr. Suggs has ordered an ultrasound to further define hematoma versus fluid within the subcutaneous tissues. Depending upon the result, we will consider either an I and D or a needle aspiration versus just continued compression. This was discussed with the patient, has agreed to be compliant with the compressive therapy up until now she has not really wanted to have compression on her foot, although she has intermittently allowed it. We will continue to follow with her pending outcome of the ultrasound. GE Slaughter/EDVIN /[id number]
--- NOTE | 2018-11-24 17:05 | Diagnostic Imaging Report ---
EXAM: Focused Soft Tissue Ultrasound Evaluation of areas of clinical concern on right foot and left leg INDICATION: ^SOFT TISSUE US ON LOWER EXTREMITIES. BLACK SPOT PRESENT ^Y COMPARISON: None TECHNIQUE: Santos scale, color Doppler images of the areas of clinical concern at the right foot and left anterior calf were obtained. FINDINGS: Left anterior calf: Subcutaneous soft tissue edema and small amount of fluid tracking through the subcutaneous soft tissues. No focal mass or collection. Right calf: Subcutaneous soft tissue edema and small amount of fluid tracking through the subcutaneous soft tissues. No focal mass or collection. Dorsal right foot: Subcutaneous soft tissue swelling. Small amount of fluid tracking through the subcutaneous soft tissues. Approximately 6 mm more focal areas of fluid with echogenic components. IMPRESSION: Left calf soft tissues with edema and small amount of fluid tracking through the subcutaneous soft tissues. No focal mass or collection. Right foot subcutaneous soft tissue swelling with approximately 6 mm more focal areas of fluid with echogenic components, possibly representing small developing abscesses. No drainable fluid collections. Signed by: Charo Blanco MD on 11/24/2018 5:02 PM
--- NOTE | 2018-11-24 19:00 | NUR ---
BEDSIDE SHIFT REPORT GIVEN TO THE ASSISTANT FINANCE DIRECTOR RN. PT DENIES NEEDS AT THIS TIME.
--- NOTE | 2018-11-24 19:30 | NUR ---
PAGED DR DORSEY OFFICE AND REPORTED THE ULTRA SOUND RESULT. NO NEW ORDERS RECEIVED.
--- NOTE | 2018-11-24 19:40 | NUR ---
PAGED DR BOWEN AND REPORTED THE ULTRA SOUND REPORT TO THE DR. NO NEW ORDERS RECEIVED.
--- NOTE | 2018-11-24 19:45 | NUR ---
CALL BACK FROM DR. DORSEY OFFICE. PER DR. MATHUR KEEP THE PT OVER THE WEEKEND ON IV ABX.
[2018-11-24] MEDS: CYCLOBENZAPRINE HCL 10 MG TAB PO SCH (21:38)
[2018-11-25] VITALS (7 sets, daily range): BP systolic 120–140; BP diastolic 60–67
[2018-11-25] MEDS: MEROPENEM 1GM 100 ML IV SCH ×3 (03:02→18:41)
[2018-11-25] MEDS: DIPHENHYDRAMINE HCL INJ 50 MG/ML VIAL IV PRN ×5 (03:02→20:22)
--- NOTE | 2018-11-25 06:45 | NUR ---
Picc Line dressing changed.
--- NOTE | 2018-11-25 06:45 | NUR ---
BEDSIDE SHIFT REPORT RECEIVED FROM MIXING AND MOLDING MACHINE OPERATOR RN. PICC LINE DRESSING CHANGE COMPLETED WITH MIXING AND MOLDING MACHINE OPERATOR RN. PT DENIED FURTHER NEEDS.
--- NOTE | 2018-11-25 07:15 | NUR ---
DR. BHANDARI AT BEDSIDE TO SEE THE PT. KEEP THE PT OVER THE WEEKEND PER THE
[2018-11-25] MEDS: GLIMEPIRIDE 2 MG TAB PO SCH (08:17)
[2018-11-25] MEDS: ATENOLOL 50 MG TAB PO SCH ×2 (08:18→17:45)
[2018-11-25] MEDS: ONDANSETRON HCL INJ 2MG/ML 2ML 2 MG/ML VIAL IV PRN ×3 (08:20→23:19)
[2018-11-25] MEDS: HYDROMORPHONE 1MG/1ML INJ IV PRN ×5 (08:20→23:19)
[2018-11-25] MEDS: LISINOPRIL 2.5 MG TAB PO SCH (09:00)
--- NOTE | 2018-11-25 09:11 | Progress Note ---
DATE: SUBJECTIVE: The patient is a 48-year-old female with cellulitis of bilateral lower extremities. Currently, she still complains of pain, 8/10 in intensity and also erythema and redness in the foot. Has been taking pain medication round the clock. OBJECTIVE: VITAL SIGNS: Temperature is 98.1, pulse of 61, respirations of 18, and blood pressure is 128/63. HEENT: Normocephalic and atraumatic. Malar rash present. CVS: S1 and S2. Regular rate and rhythm. LUNGS: Clear. ABDOMEN: Nontender and nondistended. EXTREMITIES: Bilateral lower extremities bandaged. Positive for erythema. Right lower extremity with a hematoma. IMAGING: Imaging studies done yesterday, an ultrasound of the right and left leg shows left calf soft tissue with edema and small amount of fluid track at the subcutaneous soft tissue. Right foot subcutaneous soft tissue swelling is approximately 6 mm focal area fluid with echogenic components, possibly representing small developing abscess. No drainable fluid collection. ASSESSMENT: Bilateral lower extremity cellulitis, hematoma, and possible abscess of the right lower extremity, history of hyperglycemia, and history of hypertension. PLAN: Dr. Downs has been consulted and also ID has been consulted. The patient probably will need an I and D and also aspiration of the abscess. For now, we will continue antibiotic. Continue medications. Further recommendation per clinical course. We will continue to monitor the patient. The patient will be kept in-house with antibiotics. MEDICATIONS: At this time meropenem, hydromorphone, atenolol, glimepiride, loperamide, lisinopril, and Lasix. MD TIKA Mills/MODL /[id number]
[2018-11-25] MEDS: COLLAGENASE OINTMENT 30 GM TUBE TP SCH ×2 (11:00→22:15)
--- NOTE | 2018-11-25 19:00 | NUR ---
BEDSIDE SHIFT REPORT GIVEN TO THE IV TECHNICIAN RN. PT AAOX4. PT DENIED FURTHER NEEDS.
[2018-11-25] MEDS: CYCLOBENZAPRINE HCL 10 MG TAB PO SCH (22:15)
[2018-11-26] VITALS (7 sets, daily range): BP systolic 98–133; BP diastolic 55–88
[2018-11-26] MEDS: MEROPENEM 1GM 100 ML IV SCH ×3 (03:24→17:27)
[2018-11-26] MEDS: DIPHENHYDRAMINE HCL INJ 50 MG/ML VIAL IV PRN ×4 (03:24→17:15)
[2018-11-26] MEDS: ONDANSETRON HCL INJ 2MG/ML 2ML 2 MG/ML VIAL IV PRN ×5 (04:09→21:51)
[2018-11-26] MEDS: HYDROMORPHONE 1MG/1ML INJ IV PRN ×5 (04:09→21:51)
[2018-11-26] MEDS: GLIMEPIRIDE 2 MG TAB PO SCH (08:00)
--- NOTE | 2018-11-26 08:21 | Progress Note ---
DATE: SUBJECTIVE: This is a 48-year-old female with bilateral lower extremity cellulitis and right foot hematoma. The patient still continues to have pain in and around the hematoma. Also, upper, lower extremity pains continue. The patient otherwise is asymptomatic. No chest pain. No shortness of breath. Pain medication has been given. MEDICATIONS: Include hydromorphone one q.3 hours, Zofran 4 mg as needed IV q.4. The patient is on Merrem, cyclobenzaprine 10 mg at nighttime, atenolol 25 mg twice a day, glimepiride for diabetes 4 mg daily, and lisinopril 2.5 mg. The patient is also getting Lasix 40 mg as needed. OBJECTIVE: VITAL SIGNS: Temperature is 96, respirations of 18, blood pressure is 133/88, and pulse oximetry of 96%. HEENT: Normocephalic, atraumatic. Bilateral rash present. CVS: S1, S2 normal. Regular rate and rhythm. ABDOMEN: Nontender, nondistended. EXTREMITIES: Bilateral lower extremities in bandage. The patient's right lower extremity hematoma with erythema surrounding. IMAGING STUDIES: Last ultrasound report showed left calf soft tissue with edema with small amount of fluid tracking, and right foot has subcutaneous soft tissue swelling with approximately 6 mm more focal area of fluid with echogenic components representing a small developing abscess. LABORATORY VALUES: None done. Glucoses have been running in the 90s to 100s. ASSESSMENT: 1. Bilateral lower extremity cellulitis. 2. Hematoma of the right lower extremity with possible abscess. 3. Diabetes mellitus. 4. Hypertension. 5. Lupus erythematosus. PLAN: 1. ID consult and Dr. Downs are on consult. The decision to do an I and D versus aspiration of abscess will be left to Dr. Downs. 2. Continue with all antihypertensive and diabetic medications. 3. Keep foot elevated. 4. Continue with hydromorphone for pain control. Further recommendation per medical course. We will continue to monitor the patient and check the labs tomorrow. MD TIKA Mills/EDUINL /[id number]
[2018-11-26] MEDS: COLLAGENASE OINTMENT 30 GM TUBE TP SCH ×2 (09:00→21:15)
[2018-11-26] MEDS: LISINOPRIL 2.5 MG TAB PO SCH (09:00)
[2018-11-26] MEDS: ATENOLOL 50 MG TAB PO SCH ×2 (09:00→17:00)
--- NOTE | 2018-11-26 11:00 | NUR ---
DRESSING CHANGED ON THE RIGHT AND LEFT FOOT
--- NOTE | 2018-11-26 15:28 | NUR ---
ASSESSMENT: 1. Bilateral lower extremity cellulitis. 2. Hematoma of the right lower extremity with possible abscess. 3. Diabetes mellitus. 4. Hypertension. 5. Lupus erythematosus. [id number]
--- NOTE | 2018-11-26 16:53 | Progress Note ---
DATE: SUBJECTIVE: Ms. Raza is lying in bed comfortably. No new complaint. REVIEW OF SYSTEMS: HEENT: Negative. PULMONARY: Negative. CARDIAC: Negative. PHYSICAL EXAMINATION: GENERAL: She is currently alert, oriented, does not seem to be in acute distress. VITAL SIGNS: Stable, currently afebrile. HEENT: She is not icteric. NECK: Supple. CHEST: Clear. HEART: S1 and S2. No murmur. ABDOMEN: Soft. Bowel sounds present. No tenderness. EXTREMITIES: No edema. In the foot, there is reduced redness and swelling. She has a small area on the dorsum of the foot . IMPRESSION AND PLAN: I think the patient has cellulitis, resolved, but now we have a small collection of fluid on the dorsal aspect of the right foot. Discussed with Podiatry to aspirate. Continue with antibiotic as ordered we will follow with you. MD EMELIA Turner/MODЮлия /[id number]
[2018-11-26] MEDS: LOPERAMIDE HCL 2 MG CAP PO PRN (17:05)
--- NOTE | 2018-11-26 17:30 | NUR ---
PAGED DR BHANDARI AND NOTIFIED THE BP 88/55 MM/HG GOT THE ORDER TO HOLD THE EVENING DOSE ATENOLOL
--- NOTE | 2018-11-26 19:05 | NUR ---
PT RESTING ON BED BED SIDE REPORT GIVEN TO ONCOMING NURSE
[2018-11-26] MEDS: CYCLOBENZAPRINE HCL 10 MG TAB PO SCH (21:15)
[2018-11-27] VITALS (8 sets, daily range): BP systolic 117–144; BP diastolic 59–72
[2018-11-27] MEDS: DIPHENHYDRAMINE HCL INJ 50 MG/ML VIAL IV PRN ×5 (02:59→17:07)
[2018-11-27] MEDS: MEROPENEM 1GM 100 ML IV SCH ×3 (02:59→17:07)
[2018-11-27] MEDS: HYDROMORPHONE 1MG/1ML INJ IV PRN ×5 (03:51→22:35)
[2018-11-27] MEDS: ONDANSETRON HCL INJ 2MG/ML 2ML 2 MG/ML VIAL IV PRN ×5 (03:51→22:41)
--- NOTE | 2018-11-27 05:15 | Progress Note ---
DATE: 11/25/2018 SUBJECTIVE: Luz Marina Mckinnon is doing well. REVIEW OF SYSTEMS: HEENT: Negative. PULMONARY: Negative. CARDIAC: Negative. PHYSICAL EXAMINATION: GENERAL: She is currently alert and oriented, does not seem to be in acute distress. VITAL SIGNS: Stable, currently afebrile. HEENT: She is not icteric. NECK: Supple. CHEST: Clear. HEART: S1 and S2, no murmur. ABDOMEN: Soft. Bowel sounds present. EXTREMITIES: No edema. There is still redness and swelling on top of dorsal forefoot. IMPRESSION: 1. Cellulitis of lower extremities, better. 2. Hematoma, clinically seems to be better. 3. History of systemic lupus erythematosus. 4. History of neuropathy. 5. History of Charcot joint. We will discuss with Podiatry. We did ultrasound, and reviewed with the patient. The finding of the ultrasound show small collection of fluid. We will discuss with Podiatry if we can do CT-guided ultrasound or if we can do aspiration with a needle. MD EMELIA Turner/EDVIN /[id number]
[2018-11-27 06:06] LABS: BASOPHILS # (AUTO) 0.1 (0.0-0.1); BASOPHILS % 0.9 % (0.0-1.0); EOSINOPHILS # (AUTO) 0.4 (0.0-0.4); EOSINOPHILS % 3.4 % (0.0-6.0); HEMATOCRIT 44.1 % (34.2-44.1); HEMOGLOBIN 14.4 g/dL (12.0-16.0); LYMPHOCYTES # (AUTO) 2.4 (1.0-3.2); MEAN CORPUSCULAR HGB CONC 32.7 g/dL (31-35); MEAN CORPUSCULAR VOLUME 104.3 fL (81-99); MONOCYTES # (AUTO) 0.8 (0.2-0.8); MONOCYTES % 7.1 % (4.4-11.3); NEUTROPHILS # (AUTO) 7.9 (2.1-6.9); NEUTROPHILS % 66.7 % (38.7-80.0); PLATELET COUNT 381 x10e3/uL (140-360); RED BLOOD COUNT 4.23 x10e6/uL (3.6-5.1); RED CELL DISTRIBUTION WIDTH 14.2 % (11.7-14.4)
[2018-11-27 06:30] LABS: ANION GAP 14.7 mmol/L (8-16); BLOOD UREA NITROGEN 7 mg/dL (7-26); BUN/CREATININE RATIO 9 (6-25); CALCIUM 9.6 mg/dL (8.4-10.2); CARBON DIOXIDE 23 mmol/L (22-29); CHLORIDE 105 mmol/L (98-107); CREATININE, SERUM 0.78 mg/dL (0.57-1.11); EST GLOMERULAR FILTRATION RATE > 60 ML/MIN (60-); GLUCOSE 125 mg/dL (74-118); POTASSIUM 4.7 mmol/L (3.5-5.1); SODIUM 138 mmol/L (136-145)
[2018-11-27] MEDS: GLIMEPIRIDE 2 MG TAB PO SCH (08:56)
[2018-11-27] MEDS: LISINOPRIL 2.5 MG TAB PO SCH (08:57)
[2018-11-27] MEDS: ATENOLOL 50 MG TAB PO SCH ×2 (08:57→17:07)
[2018-11-27] MEDS ORDERED: SODIUM CHLORIDE 0.9% 250ML 250 ML ONE (11:59)
[2018-11-27] MEDS ORDERED: LIDOCAINE 1% 5ML-MPF INJ ONE (13:30)
[2018-11-27] MEDS ORDERED: LIDOCAINE 1% W/EPINEPHRINE 20 ML VIAL INJ ONE (13:30)
[2018-11-27] MEDS ORDERED: HYDROMORPHONE 2MG/ML 2 MG/ML ML IV STA (13:53)
[2018-11-27] MEDS ORDERED: HYDROMORPHONE 1MG/1ML INJ IV ONE (14:00)
--- NOTE | 2018-11-27 15:14 | Operative Report ---
DATE OF PROCEDURE: SURGEON: Troy Downs DPM PREPROCEDURE DIAGNOSIS: Hematoma with fluid dorsal aspect of the right foot. POSTOPERATIVE DIAGNOSIS: Hematoma with fluid dorsal aspect of the right foot. TITLE OF THE OPERATION: Aspiration of the hematoma, dorsal aspect of the right foot. ANESTHESIA: Local, 2% lidocaine plain. PROCEDURE IN DETAIL: The patient was prepped at bedside, consented appropriately for drainage of the right foot hematoma. After the appropriate prep and drape, a 2% lidocaine injection, approximately 2 mL was performed into the area of the hematoma/cystic lesion on the dorsal aspect of the right foot. Utilizing an 18-gauge needle and a 20 mL syringe. An aspirate was performed. A small amount of fluid approximately 2 mL was withdrawn from the hematoma area was noted. After multiple areas of probing that the hematoma appeared to be fairly solid mild compression under the anesthesia yielded no drainable fluid beyond that which was expressed. A superficial culture and sensitivities were taken and the aspirate itself was sent to micro for further ID culture and sensitivity, and cytological exam. Appropriate mildly compressive dressings were applied. I have recommended she continue with compression and IV antibiotics. Upon discharge, she will be following up with me within 1 week after discharge and from my perspective, she can go at any time now. GE Slaughter/EDVIN /[id number]
[2018-11-27] MEDS: COLLAGENASE OINTMENT 30 GM TUBE TP SCH ×2 (16:00→21:31)
--- NOTE | 2018-11-27 19:20 | NUR ---
Report given to oncoming nurse of patient's status. Resting in bed. AAOX4 to time, person, place, situation. Respirations even and unlabored. Dressing to BLE clean, dry, and intact. Side rails upx2, call light within reach.
--- NOTE | 2018-11-27 20:04 | NUR ---
RECEIVED PT IN BED AOX3 .RESPIRATIONS ARE EVEN AND UN LABORED .C/O PAIN CALL LIGHT WITH IN REACH CONTINUE TO MONITOR
[2018-11-27] MEDS: CYCLOBENZAPRINE HCL 10 MG TAB PO SCH (21:40)
[2018-11-28] VITALS (8 sets, daily range): BP systolic 110–137; BP diastolic 56–79
[2018-11-28] MEDS: MEROPENEM 1GM 100 ML IV SCH ×3 (03:00→22:38)
[2018-11-28] MEDS: DIPHENHYDRAMINE HCL INJ 50 MG/ML VIAL IV PRN ×6 (03:00→23:22)
--- NOTE | 2018-11-28 05:31 | NUR ---
PT C/O PAIN AND GIVEN ORDERED PAIN MEDICATION .PT RESTING .CALL LIGHT WITH IN REACH .CONTINUE TO MONITOR
[2018-11-28] MEDS: HYDROMORPHONE 1MG/1ML INJ IV PRN ×5 (06:20→22:45)
[2018-11-28] MEDS: ONDANSETRON HCL INJ 2MG/ML 2ML 2 MG/ML VIAL IV PRN ×5 (06:20→22:45)
--- NOTE | 2018-11-28 07:22 | NUR ---
BEDSIDE REPORT GIVEN TO THE ONCOMING NURSE
[2018-11-28] MEDS: LISINOPRIL 2.5 MG TAB PO SCH (08:01)
[2018-11-28] MEDS: GLIMEPIRIDE 2 MG TAB PO SCH (08:01)
[2018-11-28] MEDS: COLLAGENASE OINTMENT 30 GM TUBE TP SCH ×2 (08:02→20:54)
[2018-11-28] MEDS: ATENOLOL 50 MG TAB PO SCH ×2 (08:02→16:33)
--- NOTE | 2018-11-28 12:30 | NUR ---
Per discussion in rounds, currently pending wound cultures. Anticipate discharge home tomorrow with oral antibiotic.
--- NOTE | 2018-11-28 19:10 | NUR ---
BEDSIDE REPORT RECEIVED FROM PREVIOUS NURSE. CALL LIGHT WITHIN REACH. PATIENT IN BED.
--- NOTE | 2018-11-28 19:20 | NUR ---
Report given to oncoming nurse of patient's status. Resting in bed. No s/s of acute distress noted. Side rails upx2, call light within reach.
[2018-11-28] MEDS: CYCLOBENZAPRINE HCL 10 MG TAB PO SCH (20:54)
[2018-11-29 00:52] VITALS: BP 118/62
[2018-11-29] MEDS: ONDANSETRON HCL INJ 2MG/ML 2ML 2 MG/ML VIAL IV PRN ×2 (02:45→11:18)
[2018-11-29] MEDS: HYDROMORPHONE 1MG/1ML INJ IV PRN ×2 (02:45→11:00)
[2018-11-29 06:11] VITALS: BP 118/62
[2018-11-29 06:11] LABS: BASOPHILS # (AUTO) 0.2 (0.0-0.1); BASOPHILS % 1.2 % (0.0-1.0); EOSINOPHILS # (AUTO) 0.4 (0.0-0.4); EOSINOPHILS % 3.1 % (0.0-6.0); HEMOGLOBIN 14.8 g/dL (12.0-16.0); LYMPHOCYTES # (AUTO) 2.7 (1.0-3.2); LYMPHOCYTES % 20.7 % (18.0-39.1); MEAN CORPUSCULAR HEMOGLOBIN 34.6 pg (28-32); MEAN CORPUSCULAR HGB CONC 32.2 g/dL (31-35); MEAN CORPUSCULAR VOLUME 107.5 fL (81-99); MONOCYTES # (AUTO) 1.2 (0.2-0.8); MONOCYTES % 8.8 % (4.4-11.3); NEUTROPHILS # (AUTO) 8.4 (2.1-6.9); NEUTROPHILS % 64.4 % (38.7-80.0); PLATELET COUNT 359 x10e3/uL (140-360); RED BLOOD COUNT 4.28 x10e6/uL (3.6-5.1); RED CELL DISTRIBUTION WIDTH 14.1 % (11.7-14.4)
[2018-11-29] MEDS: DIPHENHYDRAMINE HCL INJ 50 MG/ML VIAL IV PRN ×2 (06:17→07:14)
[2018-11-29] MEDS: MEROPENEM 1GM 100 ML IV SCH (06:17)
[2018-11-29 06:29] LABS: ALANINE AMINOTRANSFERASE 76 IU/L (0-55); ALBUMIN 3.3 g/dL (3.5-5.0); ALBUMIN/GLOBULIN RATIO 0.9 (0.8-2.0); ALKALINE PHOSPHATASE 324 IU/L (40-150); ANION GAP 13.8 mmol/L (8-16); BLOOD UREA NITROGEN 8 mg/dL (7-26); BUN/CREATININE RATIO 10 (6-25); CALCIUM 9.2 mg/dL (8.4-10.2); CARBON DIOXIDE 23 mmol/L (22-29); CHLORIDE 101 mmol/L (98-107); CREATININE, SERUM 0.83 mg/dL (0.57-1.11); EST GLOMERULAR FILTRATION RATE > 60 ML/MIN (60-); GLUCOSE 128 mg/dL (74-118); POTASSIUM 3.8 mmol/L (3.5-5.1); SODIUM 134 mmol/L (136-145)
--- NOTE | 2018-11-29 07:29 | NUR ---
GAVE BEDSHIFT REPORT TO ONCOMING NURSE. PATIENT ASLEEP IN BED. CALL LIGHT WITHIN REACH.
--- NOTE | 2018-11-29 07:30 | NUR ---
GAVE BEDSHIFT REPORT TO ONCOMING NURSE. PATIENT ASLEEP IN BED. CALL LIGHT WITHIN REACH. AT BEDSIDE
[2018-11-29 08:00] VITALS: BP 113/70
[2018-11-29] MEDS: ATENOLOL 50 MG TAB PO SCH (08:39)
[2018-11-29] MEDS: LISINOPRIL 2.5 MG TAB PO SCH (08:39)
[2018-11-29] MEDS: GLIMEPIRIDE 2 MG TAB PO SCH (08:39)
[2018-11-29 09:00] VITALS: BP 113/70
[2018-11-29] MEDS: LOPERAMIDE HCL 2 MG CAP PO PRN (09:30)
[2018-11-29 11:55] VITALS: BP 115/68
--- NOTE | 2018-11-29 11:59 | NUR ---
picc removed with tip intact, no bleeding noted from site. held pressure per protocol and applied clean dry dressing.
--- NOTE | 2018-11-29 14:08 | NUR ---
patient escorted to front lobby door where private auto awaited for her, all personal belongings, dc instructions and RX with pt at time of d/c.
--- NOTE | 2018-12-02 06:01 | Discharge Summary ---
DISCHARGE DIAGNOSIS: Right foot cellulitis. HISTORY OF PRESENT ILLNESS AND HOSPITAL COURSE: See hospital chart for full details. The patient is a lady with diabetes brought and placed on IV antibiotics, was seen by Dr. Suggs as well as with Dr. Downs. She did very well with the IV antibiotics with complete resolution of her chronic edema and redness. She did have had evidence of a soft tissue mass that turned out to be a hematoma both on scans as well as aspiration. At the time of discharge, the patient was feeling well. She was discharged home on p.o. antibiotics, but as well as Dr. Suggs. Please see hospital chart for full details. MD SHARATH Sin/EDVIN /[id number]
== END 2018-11-29 14:08 | disposition home or self-care (01) | DRG 603 ==
LOC: ER 17:16 → ERHOLD 19:27 → UNDOADMIN 11-18 01:59 → ERHOLD 11-18 15:29 → MED/SURG2 11-18 15:29
PROVIDERS: ADMIT Internal Medicine; ATTEND Internal Medicine
PROC: 0JCQ0ZZ Extirpation of Matter from Right Foot Subcutaneous Tissue and Fascia, Open Approach (ICD-10-PCS; principal; 2018-11-27)
DX: L03.115 Cellulitis of right lower limb (principal); A52.16 Charcot's arthropathy (tabetic); S80.11XA Contusion of right lower leg, initial encounter; R53.81 Other malaise; I10 Essential (primary) hypertension; M32.9 Systemic lupus erythematosus, unspecified; G89.29 Other chronic pain; Z79.52 Long term (current) use of systemic steroids; I89.0 Lymphedema, not elsewhere classified; E11.65 Type 2 diabetes mellitus with hyperglycemia; Z79.4 Long term (current) use of insulin; E11.40 Type 2 diabetes mellitus with diabetic neuropathy, unspecified
CPT/HCPCS: 36415; 36569; 71045; 76705; 76882; 80048; 80053; 82948; 83605; 83735; 85025; 87040; 87071; 87075; 87205; 96374; 96375; 96376; 99284; J1170; J1200; J2405; J7030; J7050

== ENCOUNTER 2019-01-27 06:54 | Observation (INO) | payer OTHER ==
[~2019-01-27] VITALS: Ht 162.6 cm; Wt 77.1 kg
[~2019-01-27 06:54] MED LIST changes: +ALPRAZOLAM0.25 MG PO; +CYCLOBENZAPRINE10 MG PO; +EPINEPHRIN0.3 MG/0.3; +FUROSEMIDE40 MG PO; +GLIMEPIRIDE4 MG PO; +HYDROCODON-ACE1 EAC9; +LISINOPRIL2.5 MG PO; +ONE TOUCH ULTR1 EACH; +SANTYL; +VENTOLIN HFA18 GM PO; +ZOLPIDEM TARTRA10 MG PO
[2019-01-27] MEDS ORDERED: ONDANSETRON HCL INJ 2MG/ML 2ML 2 MG/ML VIAL IV ONE (07:45)
[2019-01-27 07:56] LABS: BASOPHILS # (AUTO) 0.1 (0.0-0.1); BASOPHILS % 0.3 % (0.0-1.0); EOSINOPHILS % 0.2 % (0.0-6.0); HEMATOCRIT 40.8 % (34.2-44.1); LYMPHOCYTES # (AUTO) 3.1 (1.0-3.2); LYMPHOCYTES % 17.3 % (18.0-39.1); MEAN CORPUSCULAR HEMOGLOBIN 32.6 pg (28-32); MEAN CORPUSCULAR HGB CONC 34.3 g/dL (31-35); MEAN CORPUSCULAR VOLUME 94.9 fL (81-99); MONOCYTES # (AUTO) 1.1 (0.2-0.8); MONOCYTES % 6.3 % (4.4-11.3); NEUTROPHILS # (AUTO) 13.2 (2.1-6.9); NEUTROPHILS % 74.9 % (38.7-80.0); PLATELET COUNT 490 x10e3/uL (140-360); RED CELL DISTRIBUTION WIDTH 13.4 % (11.7-14.4)
[2019-01-27 07:57] LABS: BILIRUBIN,URINE NEGATIVE (NEGATIVE); CLARITY,URINE CLEAR (CLEAR); COLOR,URINE YELLOW (YELLOW); KETONES,URINE NEGATIVE (NEGATIVE); LEUKOCYTE ESTERASE ,URINE NEGATIVE (NEGATIVE); NITRITE,URINE NEGATIVE (NEGATIVE); PROTEIN,URINE DIPSTICK NEGATIVE (NEGATIVE); URINE UROBILINOGEN 0.2 mg/dL (0.2 - 1)
[2019-01-27 08:11] LABS: BACTERIA,URINE RARE /HPF; EPITHELIAL CELLS,URINE MODERATE /LPF; RBC,URINE 0-5 /HPF (0-5); WBC,URINE (MAN) 0-5 /HPF (0-5)
[2019-01-27 08:15] LABS: ALBUMIN/GLOBULIN RATIO 0.8 (0.8-2.0); ANION GAP 13.7 mmol/L (8-16); CALCIUM 8.9 mg/dL (8.4-10.2); CREATININE, SERUM 1.04 mg/dL (0.57-1.11)
[2019-01-27 08:18] LABS: POTASSIUM 2.7 mmol/L (3.5-5.1)
[2019-01-27 08:22] LABS: CREATINE KINASE MB 4.1 ng/mL (0-5.0)
[2019-01-27] MEDS ORDERED: FENTANYL CITRATE/PF 100MCG/2 ML INJ IV ONE ×2 (08:30→12:00)
[2019-01-27] MEDS ORDERED: POTASSIUM CHLORIDE 10MEQ/100ML 200 ML IV ONE (08:30)
[2019-01-27] MEDS ORDERED: SODIUM CHLORIDE 0.9% 1000ML 1,000 ML IV STA (08:44)
--- NOTE | 2019-01-27 08:49 | Diagnostic Imaging Report ---
EXAM: CT Abdomen and Pelvis WITHOUT contrast INDICATION: Abdominal pain. COMPARISON: Liver ultrasound 04/10/2018. TECHNIQUE: Abdomen and pelvis were scanned utilizing a multidetector helical scanner from the lung base to the pubic symphysis without administration of IV contrast. Absence of intravenous contrast decreases sensitivity for detection of focal lesions and vascular pathology. Coronal and sagittal reformations were obtained. Routine protocol was performed. IV CONTRAST: None. ORAL CONTRAST: Water RADIATION DOSE: Total DLP: 415.8 mGy*cm Estimated effective dose: (DLP x 0.015 x size factor) mSv COMPLICATIONS: None FINDINGS: LINES and TUBES: None. LOWER THORAX: Patchy atelectasis in the lingula. HEPATOBILIARY: Diffuse hepatic steatosis. Hepatomegaly. No focal hepatic lesions. CBD measures up to 1.1 cm, likely post cholecystectomy reservoir effect. GALLBLADDER: Status post cholecystectomy. SPLEEN: No splenomegaly. PANCREAS: No focal masses or ductal dilatation. ADRENALS: No adrenal nodules KIDNEYS/URETERS: No hydronephrosis. No cystic or solid mass lesions. There are bilateral nonobstructing renal stones, measuring up to 4 mm in the left lower pole and 4 mm in the right mid pole. GI TRACT: No abnormal distention, wall thickening, or evidence of bowel obstruction. Scattered colonic diverticulosis without CT evidence of diverticulitis. Appendix is normal. PELVIC ORGANS/BLADDER: Unremarkable. LYMPH NODES: No lymphadenopathy. VESSELS: Unremarkable. PERITONEUM / RETROPERITONEUM: No free air or fluid. BONES: Unremarkable. SOFT TISSUES: Unremarkable. IMPRESSION: Hepatomegaly and hepatic steatosis. CBD measures up to 1.1 cm, likely post cholecystectomy reservoir effect. Nonobstructing bilateral renal stones, measuring up to 4 mm. Signed by: Dr. Yaritza Mike MD on 01/27/2019 8:46 AM
[2019-01-27] MEDS ORDERED: POTASSIUM CHLORIDE 20 MEQ TAB CR PO ONE (09:00)
--- NOTE | 2019-01-27 10:09 | Diagnostic Imaging Report ---
EXAMINATION: CHEST 2 VIEWS INDICATION: Weakness. COMPARISON: CT Abdomen/Pelvis 01/27/2019. Chest radiograph 11/18/2018. FINDINGS: TUBES and LINES: None. LUNGS: Lungs are moderately inflated. There is patchy opacity in the left lower lung. No evidence of pulmonary edema. PLEURA: No pleural effusion or pneumothorax. HEART AND MEDIASTINUM: The cardiomediastinal silhouette is unremarkable. BONES AND SOFT TISSUES: No acute osseous abnormality. UPPER ABDOMEN: No free air under the diaphragm. IMPRESSION: Patchy left lower lung opacity, likely atelectasis. Signed by: Dr. Yaritza Mike MD on 01/27/2019 10:06 AM
[2019-01-27 12:23] LABS: BASOPHILS # (AUTO) 0.1 (0.0-0.1); BASOPHILS % 0.3 % (0.0-1.0); EOSINOPHILS # (AUTO) 0.1 (0.0-0.4); EOSINOPHILS % 0.3 % (0.0-6.0); HEMATOCRIT 38.9 % (34.2-44.1); HEMOGLOBIN 13.1 g/dL (12.0-16.0); LYMPHOCYTES # (AUTO) 2.8 (1.0-3.2); LYMPHOCYTES % 16.2 % (18.0-39.1); MEAN CORPUSCULAR HEMOGLOBIN 32.4 pg (28-32); MEAN CORPUSCULAR HGB CONC 33.7 g/dL (31-35); MEAN CORPUSCULAR VOLUME 96.3 fL (81-99); MONOCYTES # (AUTO) 0.9 (0.2-0.8); MONOCYTES % 5.1 % (4.4-11.3); NEUTROPHILS # (AUTO) 13.4 (2.1-6.9); NEUTROPHILS % 77.2 % (38.7-80.0); PLATELET COUNT 473 x10e3/uL (140-360); RED BLOOD COUNT 4.04 x10e6/uL (3.6-5.1); RED CELL DISTRIBUTION WIDTH 13.3 % (11.7-14.4)
[2019-01-27 12:42] LABS: ANION GAP 12.2 mmol/L (8-16); BLOOD UREA NITROGEN 12 mg/dL (7-26); BUN/CREATININE RATIO 15 (6-25); CALCIUM 8.3 mg/dL (8.4-10.2); CARBON DIOXIDE 25 mmol/L (22-29); CHLORIDE 104 mmol/L (98-107); EST GLOMERULAR FILTRATION RATE > 60 ML/MIN (60-); GLUCOSE 153 mg/dL (74-118); MAGNESIUM 1.6 MG/DL (1.3-2.1); POTASSIUM 3.2 mmol/L (3.5-5.1); SODIUM 138 mmol/L (136-145)
[2019-01-27] MEDS ORDERED: MAGNESIUM SULFATE 2GM/50ML 50 ML IV ONE (13:00)
[2019-01-27] MEDS: SODIUM CHLORIDE 0.9% 1000ML 1,000 ML IV SCH ×2 (13:21→19:45)
[2019-01-27] MEDS ORDERED: DEXTROSE 50% SYRINGE 50 ML IV PRN (13:45)
[2019-01-27 15:38] VITALS: BP 120/87
[2019-01-27] MEDS: HYDROMORPHONE 1MG/1ML INJ IV PRN ×2 (16:14→20:07)
[2019-01-27] MEDS: PROMETHAZINE 25MG/ NS 50ML (IV) IV PRN (16:14)
[2019-01-27] MEDS: INSULIN REGULAR, HUMAN 100 UNIT/1 ML 3ML VIAL SQ SCH ×2 (16:30→22:20)
[2019-01-27 17:01] VITALS: BP 102/60
--- NOTE | 2019-01-27 19:51 | NUR ---
INFORMED DR. NARVAEZ REGARDING HOME MEDS AND PATIENT REQUEST FOR PRN ZOFRAN. NEW ORDERS RECEIVED TO RESUME HOME MEDS AND PRN ZOFRAN.
[2019-01-27 20:00] VITALS: BP 120/61
[2019-01-27] MEDS: ONDANSETRON HCL INJ 2MG/ML 2ML 2 MG/ML VIAL IV PRN (20:08)
[2019-01-27] MEDS ORDERED: LISINOPRIL 2.5 MG TAB PO PRN (20:45)
[2019-01-27] MEDS ORDERED: ZOLPIDEM TARTRATE 10 MG TAB PO PRN (20:45)
[2019-01-27] MEDS ORDERED: ALBUTEROL SULFATE HFA 8GM INHALATION AEROSOL INH PRN (20:45)
[2019-01-27] MEDS ORDERED: FUROSEMIDE 40 MG TAB PO PRN (20:45)
[2019-01-27] MEDS ORDERED: ALPRAZOLAM 0.25 MG TAB PO PRN (20:45)
[2019-01-28] VITALS (8 sets, daily range): BP systolic 121–148; BP diastolic 58–86
[2019-01-28] MEDS: HYDROMORPHONE 1MG/1ML INJ IV PRN ×6 (00:31→21:50)
[2019-01-28] MEDS: ONDANSETRON HCL INJ 2MG/ML 2ML 2 MG/ML VIAL IV PRN ×6 (00:31→21:50)
[2019-01-28] MEDS ORDERED: FUROSEMIDE 40 MG TAB PO PRN (02:15)
[2019-01-28] MEDS ORDERED: LISINOPRIL 2.5 MG TAB PO PRN (02:15)
[2019-01-28] MEDS ORDERED: ALBUTEROL SULFATE HFA 8GM INHALATION AEROSOL INH PRN (02:15)
[2019-01-28] MEDS: SODIUM CHLORIDE 0.9% 1000ML 1,000 ML IV SCH (03:45)
--- NOTE | 2019-01-28 04:40 | NUR ---
CLARIFIED ALLERGIES WITH PATIENT. PATIENT SAID THAT SHE IS NOT ALLERGIC TO DEXTROSE 5%.
--- NOTE | 2019-01-28 05:27 | NUR ---
DR. NARVAEZ DOING ROUNDS. INFORMED MD THAT PATIENT REFUSES IV FLUIDS AND REFUSES TO WEAR TELE MONITOR . MD SAID OK TO DC IV FLUIDS AND TELE. NEW ORDER ALSO RECEIVED FOR PRN IMODIUM DUE TO PATIENT C/O DIARRHEA. MAGNESIUM ALSO ORDERED FOR LABS THIS MORNING
[2019-01-28] MEDS ORDERED: LOPERAMIDE HCL 2 MG CAP PO PRN (05:30)
[2019-01-28 05:59] LABS: BASOPHILS % 0.2 % (0.0-1.0); EOSINOPHILS # (AUTO) 0.1 (0.0-0.4); EOSINOPHILS % 0.3 % (0.0-6.0); HEMATOCRIT 37.6 % (34.2-44.1); HEMOGLOBIN 12.4 g/dL (12.0-16.0); LYMPHOCYTES # (AUTO) 2.1 (1.0-3.2); LYMPHOCYTES % 14.6 % (18.0-39.1); MEAN CORPUSCULAR HEMOGLOBIN 32.2 pg (28-32); MEAN CORPUSCULAR VOLUME 97.7 fL (81-99); MONOCYTES # (AUTO) 0.7 (0.2-0.8); MONOCYTES % 4.4 % (4.4-11.3); NEUTROPHILS # (AUTO) 11.6 (2.1-6.9); NEUTROPHILS % 79.5 % (38.7-80.0); PLATELET COUNT 436 x10e3/uL (140-360); RED BLOOD COUNT 3.85 x10e6/uL (3.6-5.1); RED CELL DISTRIBUTION WIDTH 13.5 % (11.7-14.4)
[2019-01-28 06:23] LABS: ALANINE AMINOTRANSFERASE 32 IU/L (0-55); ALBUMIN 2.8 g/dL (3.5-5.0); ALBUMIN/GLOBULIN RATIO 0.8 (0.8-2.0); ALKALINE PHOSPHATASE 89 IU/L (40-150); ANION GAP 13.4 mmol/L (8-16); BLOOD UREA NITROGEN 11 mg/dL (7-26); BUN/CREATININE RATIO 13 (6-25); CALCIUM 8.8 mg/dL (8.4-10.2); CARBON DIOXIDE 24 mmol/L (22-29); CHLORIDE 105 mmol/L (98-107); CREATININE, SERUM 0.83 mg/dL (0.57-1.11); EST GLOMERULAR FILTRATION RATE > 60 ML/MIN (60-); GLUCOSE 175 mg/dL (74-118); POTASSIUM 3.4 mmol/L (3.5-5.1); SODIUM 139 mmol/L (136-145)
[2019-01-28] MEDS: ATENOLOL 50 MG TAB PO SCH ×2 (08:54→17:27)
[2019-01-28] MEDS: FUROSEMIDE INJ 10 MG/ML 4 ML VIAL IV SCH ×2 (08:54→21:32)
[2019-01-28] MEDS: PROMETHAZINE 25MG/ NS 50ML (IV) IV PRN (10:35)
[2019-01-28] MEDS: INSULIN REGULAR, HUMAN 100 UNIT/1 ML 3ML VIAL SQ SCH ×2 (16:30→20:40)
[2019-01-29] VITALS: BP 150/82
[2019-01-29] MEDS: ONDANSETRON HCL INJ 2MG/ML 2ML 2 MG/ML VIAL IV PRN ×3 (01:52→10:10)
[2019-01-29] MEDS: HYDROMORPHONE 1MG/1ML INJ IV PRN ×3 (01:52→10:10)
[2019-01-29 04:00] VITALS: BP 126/72
[2019-01-29] MEDS: PROMETHAZINE 25MG/ NS 50ML (IV) IV PRN (04:25)
[2019-01-29 06:03] LABS: ALANINE AMINOTRANSFERASE 34 IU/L (0-55); ALBUMIN/GLOBULIN RATIO 0.9 (0.8-2.0); ALKALINE PHOSPHATASE 74 IU/L (40-150); ANION GAP 12.5 mmol/L (8-16); BLOOD UREA NITROGEN 13 mg/dL (7-26); BUN/CREATININE RATIO 13 (6-25); CALCIUM 9.1 mg/dL (8.4-10.2); CARBON DIOXIDE 27 mmol/L (22-29); CHLORIDE 102 mmol/L (98-107); CREATININE, SERUM 0.97 mg/dL (0.57-1.11); EST GLOMERULAR FILTRATION RATE > 60 ML/MIN (60-); GLUCOSE 176 mg/dL (74-118); POTASSIUM 3.5 mmol/L (3.5-5.1); SODIUM 138 mmol/L (136-145)
[2019-01-29 06:04] LABS: BASOPHILS # (AUTO) 0.1 (0.0-0.1); BASOPHILS % 0.4 % (0.0-1.0); EOSINOPHILS # (AUTO) 0.1 (0.0-0.4); EOSINOPHILS % 0.4 % (0.0-6.0); HEMATOCRIT 37.6 % (34.2-44.1); HEMOGLOBIN 12.6 g/dL (12.0-16.0); LYMPHOCYTES # (AUTO) 3.1 (1.0-3.2); LYMPHOCYTES % 20.3 % (18.0-39.1); MEAN CORPUSCULAR HEMOGLOBIN 32.8 pg (28-32); MEAN CORPUSCULAR HGB CONC 33.5 g/dL (31-35); MEAN CORPUSCULAR VOLUME 97.9 fL (81-99); MONOCYTES # (AUTO) 0.9 (0.2-0.8); MONOCYTES % 6.1 % (4.4-11.3); NEUTROPHILS # (AUTO) 10.8 (2.1-6.9); NEUTROPHILS % 71.6 % (38.7-80.0); PLATELET COUNT 445 x10e3/uL (140-360); RED BLOOD COUNT 3.84 x10e6/uL (3.6-5.1); RED CELL DISTRIBUTION WIDTH 13.6 % (11.7-14.4)
--- NOTE | 2019-01-29 06:36 | NUR ---
INFORMED DR. NARVAEZ REGARDING POTASSIUM RESULT. NEW ORDER RECEIVED TO GIVE 40MEQ OF POTASSIUM PO ONCE AND THEN DISCHARGE PATIENT.
[2019-01-29] MEDS ORDERED: POTASSIUM CHLORIDE 20 MEQ TAB CR PO SCH (07:30)
--- NOTE | 2019-01-29 08:00 | NUR ---
PT UNDERSTAND DISCHARGE HAS BEEN INITIATED PT STATES RIDE WILL NOT GET HERE UNTIL 1100 AWAITING FOR RIDE HOME AT THIS TIME
[2019-01-29 08:24] VITALS: BP 144/91
[2019-01-29] MEDS: FUROSEMIDE INJ 10 MG/ML 4 ML VIAL IV SCH (08:34)
[2019-01-29] MEDS: ATENOLOL 50 MG TAB PO SCH (08:34)
[2019-01-29 08:35] VITALS: BP 144/91
[2019-01-29] MEDS: INSULIN REGULAR, HUMAN 100 UNIT/1 ML 3ML VIAL SQ SCH (08:35)
--- NOTE | 2019-01-29 10:10 | NUR ---
DC INSTRUCTIONS, PT VERBALIZED UNDERSTANDING IV DC PRESSURE DRESSING APPLIED AND TAPED
--- NOTE | 2019-01-29 10:47 | NUR ---
PT OFF UNIT TO HOME
== END 2019-01-29 10:43 | disposition home or self-care (01) ==
LOC: ER 06:54 → ERHOLD 11:45 → MED/SURG 14:04
PROVIDERS: ADMIT Internal Medicine; ATTEND Internal Medicine
DX: M32.9 Systemic lupus erythematosus, unspecified (principal); D72.829 Elevated white blood cell count, unspecified; E87.6 Hypokalemia; E11.9 Type 2 diabetes mellitus without complications; Z79.84 Long term (current) use of oral hypoglycemic drugs; R60.0 Localized edema
CPT/HCPCS: 36415 ×3; 71046; 74176; 80048; 80053 ×3; 81001; 82550; 82553; 82948 ×3; 83735 ×2; 84484; 85025 ×3; 93306; 96372 ×2; 99284; G0378 ×3; J1170 ×3; J1817; J1940 ×2; J2405 ×3; J2550 ×3; J3010; J3475; J3480; J7030

== ENCOUNTER 2019-02-19 00:25 | Inpatient (IN) | payer OTHER ==
[~2019-02-19] VITALS: Ht 162.6 cm; Wt 78.9 kg
[2019-02-19] VITALS (8 sets, daily range): BP systolic 117–145; BP diastolic 57–72
[~2019-02-19 00:25] MED LIST changes: -HYDROCODON-ACE1 EAC9; +HYDROCODON-ACE1 EAC9 PO; -SANTYL; +SANTYL TOP; +SERTRALINE HCL50 MG PO
[2019-02-19] MEDS ORDERED: SODIUM CHLORIDE 0.9% 1000ML 1,000 ML ONE (01:08)
[2019-02-19] MEDS ORDERED: SODIUM CHLORIDE 0.9% 1000ML 1,000 ML IV ONE ×2 (01:15→05:15)
[2019-02-19 01:47] LABS: BILIRUBIN,URINE SMALL (NEGATIVE); CLARITY,URINE CLOUDY (CLEAR); COLOR,URINE ORANGE (YELLOW); KETONES,URINE TRACE (NEGATIVE); LEUKOCYTE ESTERASE ,URINE SMALL (NEGATIVE); NITRITE,URINE POSITIVE (NEGATIVE); PROTEIN,URINE DIPSTICK 1+ (NEGATIVE); URINE UROBILINOGEN 1 mg/dL (0.2 - 1)
[2019-02-19 01:56] LABS: BASOPHILS # (AUTO) 0.1 (0.0-0.1); BASOPHILS % 0.7 % (0.0-1.0); EOSINOPHILS # (AUTO) 0.1 (0.0-0.4); EOSINOPHILS % 0.8 % (0.0-6.0); HEMATOCRIT 42.4 % (34.2-44.1); HEMOGLOBIN 14.3 g/dL (12.0-16.0); LYMPHOCYTES # (AUTO) 0.4 (1.0-3.2); LYMPHOCYTES % 2.4 % (18.0-39.1); MEAN CORPUSCULAR HEMOGLOBIN 32.4 pg (28-32); MEAN CORPUSCULAR HGB CONC 33.7 g/dL (31-35); MEAN CORPUSCULAR VOLUME 95.9 fL (81-99); MONOCYTES # (AUTO) 0.5 (0.2-0.8); MONOCYTES % 2.7 % (4.4-11.3); NEUTROPHILS % 92.8 % (38.7-80.0); PLATELET COUNT 191 x10e3/uL (140-360); RED BLOOD COUNT 4.42 x10e6/uL (3.6-5.1); RED CELL DISTRIBUTION WIDTH 14.4 % (11.7-14.4)
[2019-02-19 01:59] LABS: BACTERIA,URINE MANY /HPF; EPITHELIAL CELLS,URINE FEW /LPF; TRANSITIONAL EPI CELLS,URINE FEW; WBC,URINE (MAN) >50 /HPF (0-5)
[2019-02-19 02:00] LABS: AMPHETAMINES SCREEN,URINE NEGATIVE (NEGATIVE); BENZODIAZEPINES SCREEN,URINE POSITIVE (NEGATIVE); PHENCYCLIDINE SCREEN,URINE NEGATIVE (NEGATIVE)
[2019-02-19 02:01] LABS: INR 0.83; PARTIAL THROMBOPLASTIN TIME 22.8 seconds (23.8-35.5); PROTHROMBIN TIME 11.9 seconds (11.9-14.5)
[2019-02-19 02:11] LABS: ALANINE AMINOTRANSFERASE 107 IU/L (0-55); ALBUMIN 2.1 g/dL (3.5-5.0); ALBUMIN/GLOBULIN RATIO 0.5 (0.8-2.0); ALKALINE PHOSPHATASE 176 IU/L (40-150); ANION GAP 19.7 mmol/L (8-16); BLOOD UREA NITROGEN 17 mg/dL (7-26); BUN/CREATININE RATIO 15 (6-25); CALCIUM 9.2 mg/dL (8.4-10.2); CARBON DIOXIDE 19 mmol/L (22-29); CHLORIDE 97 mmol/L (98-107); CREATINE KINASE 17 IU/L (29-168); CREATININE, SERUM 1.15 mg/dL (0.57-1.11); EST GLOMERULAR FILTRATION RATE 50 ML/MIN (60-); GLUCOSE 284 mg/dL (74-118); POTASSIUM 3.7 mmol/L (3.5-5.1); SODIUM 132 mmol/L (136-145)
--- NOTE | 2019-02-19 02:48 | Diagnostic Imaging Report ---
EXAMINATION: Head CT without contrast. HISTORY:Status post fall. COMPARISON:None. TECHNIQUE: Multidetector axial images were obtained from the foramen magnum to the vertex without contrast. The images were reconstructed using brain and bone algorithms. Thin section brain images were reformatted into coronal and sagittal planes. Dose modulation, iterative reconstruction, and/or weight based adjustment of the mA/kV was utilized to reduce the radiation dose to as low as reasonably achievable. Intravenous contrast: None IMAGE QUALITY: Suboptimal evaluation particularly of skull base and posterior fossa structures due to streak artifacts FINDINGS: Skull/scalp: No lytic or blastic. lesions. No surgical changes. Parenchyma: No abnormal density. No acute hemorrhage, mass or acute major vascular territorial infarct. Arteries: No density suggestive of thrombosis. Dural sinuses: No abnormal density suggestive of thrombosis. Ventricles: No hydrocephalus or displacement. Extra-axial spaces: No abnormal density. Brain volume: Normal for age. Craniocervical junction: No mass, Chiari malformation, or basilar invagination. Sella: No mass. Paranasal/mastoid sinuses: Near complete opacification of right ethmoid air cells. IMPRESSION: Suboptimal evaluation due to streak artifacts particularly at the level of skull base and posterior fossa structures, despite the limitation no gross acute intracranial abnormality. Signed by: Dr. Michela Smalls M.D. on 02/19/2019 2:45 AM
[2019-02-19] MEDS ORDERED: LEVOFLOXACIN 500MG/D5W 100ML 100 ML IV STA (02:52)
--- NOTE | 2019-02-19 02:52 | Diagnostic Imaging Report ---
History: Fall. Comparison studies: None Technique: Axial images were obtained through the cervical region.. Coronal and sagittal images reconstructed from the axial data. Dose modulation, iterative reconstruction, and/or weight based adjustment of the mA/kV was utilized to reduce the radiation dose to as low as reasonably achievable. Intravenous contrast: None Findings: Fractures: None. Soft tissue injuries: None. Atlantoaxial articulation: Intact. Alignment: Loss of normal cervical lordosis is either positional or due to muscle spasm. No scoliosis. No subluxation. Cervicomedullary junction: No abnormalities. The foramen magnum is patent. Soft tissues: No abnormalities. Vertebrae: No fractures, infection or neoplasm. Degenerative changes: C3-C4: Mild right foraminal stenosis due to uncovertebral arthrosis. IMPRESSION: 1. No acute cervical spine fracture or dislocation. Loss of normal cervical lordosis is either positional or due to muscle spasm. 2. Ligament, spinal cord and or vascular abnormalities cannot be excluded on the basis of this examination. Signed by: Dr. Michela Smalls M.D. on 02/19/2019 2:49 AM
--- NOTE | 2019-02-19 03:15 | Diagnostic Imaging Report ---
X-ray pelvis 1 view X-ray bilateral hips 2 views each HISTORY: Pain. COMPARISON: None available. FINDINGS: The pelvic osseous structures are partially obscured by bowel gas. Bones: No acute displaced fracture. Osseous alignment is within normal limits. Joints: Joint space is well-maintained Minimal acetabular osteophytes. Soft tissues: The soft tissues appear unremarkable. Pelvic phleboliths. IMPRESSION: No acute radiographic abnormality. Mild degenerative changes in the hips. Signed by: Fabian Parks DO on 02/19/2019 3:11 AM
--- NOTE | 2019-02-19 03:17 | Diagnostic Imaging Report ---
X-ray right knee 3 views HISTORY: Pain. COMPARISON: None available. FINDINGS: Bones: No acute displaced fracture. Osseous alignment is within normal limits. Joints: The joint spaces are well-maintained. Soft tissues: Superficial soft tissue defect to the anterior infrapatellar soft tissues. Mild edema about the anterior aspect of the knee. IMPRESSION: No acute radiographic osseous abnormality. Superficial soft tissue defect to the anterior infrapatellar soft tissues. Mild edema about the anterior aspect of the knee. Signed by: Fabian Parks DO on 02/19/2019 3:13 AM
--- NOTE | 2019-02-19 03:17 | Diagnostic Imaging Report ---
X-ray right ankle 3 views HISTORY: Pain. COMPARISON: None available. FINDINGS: Bones: No acute displaced fracture. Osseous alignment is within normal limits. Joints: The joint spaces are well-maintained. Soft tissues: Mild soft tissue swelling about the ankle IMPRESSION: No acute radiographic osseous abnormality. Mild soft tissue swelling about the ankle. Signed by: Fabian Parks DO on 02/19/2019 3:14 AM
--- NOTE | 2019-02-19 03:20 | Diagnostic Imaging Report ---
EXAMINATION: CHEST SINGLE (PORTABLE) INDICATION: Fall COMPARISON: Chest radiograph 02/07/2019; abdominal CT 01/27/2019 FINDINGS: AP view TUBES and LINES: None. LUNGS/PLEURA: Stable hazy left basolateral opacity, likely due to pericardial fat pad as seen on abdominal CT 01/27/2019. PLEURA: No pleural effusion or pneumothorax. HEART AND MEDIASTINUM: The cardiomediastinal silhouette is unremarkable. BONES AND SOFT TISSUES: No acute osseous lesion. Soft tissues are unremarkable. UPPER ABDOMEN: No free air under the diaphragm. IMPRESSION: No acute thoracic radiographic abnormality. Stable hazy left basolateral opacity, likely due to pericardial fat pad as seen on abdominal CT 01/27/2019. Signed by: Fabian Parks DO on 02/19/2019 3:17 AM
--- NOTE | 2019-02-19 03:24 | Diagnostic Imaging Report ---
X-RAY RIGHT FOREARM 2 VIEWS X-RAY LEFT FOREARM 2 VIEWS HISTORY: Pain. COMPARISON: None available. FINDINGS: Bones: No acute displaced fracture. Osseous alignment is within normal limits. Joints: The joint spaces are well-maintained. Soft tissues: Superficial soft tissue laceration and swelling along the mid right forearm dorsal soft tissues. Soft tissue swelling and trace subcutaneous emphysema along the anterolateral aspect of the left elbow and proximal forearm. Mild edema along the medial aspect of the right elbow. IV catheter in the right antecubital fossa. IMPRESSION: 1. No acute radiographic osseous abnormality. 2. Superficial soft tissue laceration and swelling along the mid right forearm dorsal soft tissues. Mild edema along the medial aspect of the right elbow. 3. Soft tissue swelling and trace subcutaneous emphysema along the anterolateral aspect of the left elbow and proximal forearm. Signed by: Fabian Parks DO on 02/19/2019 3:21 AM
[2019-02-19] MEDS ORDERED: DIPHENHYDRAMINE HCL INJ 50 MG/ML VIAL IV ONE (03:45)
[2019-02-19] MEDS ORDERED: LIDOCAINE HCL 1% LOCAL INJ 20 ML VIAL ONE (03:58)
[2019-02-19] MEDS ORDERED: DEXTROSE 50% SYRINGE 50 ML IV PRN (04:45)
[2019-02-19] MEDS ORDERED: LEVOFLOXACIN 500MG/D5W 100ML 100 ML IV SCH (04:45)
[2019-02-19] MEDS: SODIUM CHLORIDE 0.9% 1000ML 1,000 ML IV SCH ×3 (04:49→20:33)
--- NOTE | 2019-02-19 05:40 | NUR ---
PT PLACED ON TELE BOX 14
--- NOTE | 2019-02-19 06:18 | NUR ---
Report received at this time.
--- NOTE | 2019-02-19 06:45 | NUR ---
Pt lethargic. Pt A&Ox4 and in no apparent distress at this time. Respirations are regular and even. Third bolus infusing at this time. Patients is at bedside. Bed is in low locked position with call light in reach. Pt and pt educated not to get patient out of bed without nurse. Bed alarm is on at this time.
--- NOTE | 2019-02-19 07:10 | NUR ---
Received patient resting in bed, boyfriend at bedside, side rails upx2, call light within reach. AAOX2 to person, place. Patient appears lethargic. Respirations even and unlabored. O2 2L NC. Instructed to use call light for assistance. Bed alarm on.
[2019-02-19] MEDS ORDERED: SERTRALINE HCL 50 MG TAB PO PRN (08:00)
--- NOTE | 2019-02-19 08:10 | NUR ---
aware of heart rate 126. See orders
[2019-02-19] MEDS: INSULIN REGULAR, HUMAN 100 UNIT/1 ML 3ML VIAL SQ SCH ×4 (08:50→20:35)
[2019-02-19] MEDS: ATENOLOL 50 MG TAB PO SCH ×2 (08:50→16:14)
--- NOTE | 2019-02-19 08:50 | NUR ---
Dr. Cardozo aware of lactic acid 3.6. No new orders
--- NOTE | 2019-02-19 10:23 | History and Physical ---
REASON FOR ADMISSION: Sepsis secondary to urinary tract infection. HISTORY OF PRESENT ILLNESS: The patient is a lady, well to me, who presented with symptoms of nausea, vomiting. She presented to the emergency room as she has evidence of sepsis secondary to urinary tract infection. PAST MEDICAL HISTORY: Significant for lupus, diabetes, chronic kidney disease stage 3. MEDICATIONS: See MAR. SOCIAL HISTORY: Lives at home with her boyfriend. Unemployed. FAMILY HISTORY: Hypertension, breast cancer. PHYSICAL EXAMINATION: VITAL SIGNS: Temperature is 98.9, pulse 110, blood pressure 128/76, sats 98%. GENERAL: She is in no apparent distress, lying in bed. NECK: Supple. CARDIOVASCULAR: Regular rate and rhythm. LUNGS: Clear to auscultation bilaterally. ABDOMEN: Good bowel sounds. Soft, nontender. EXTREMITIES: No clubbing or cyanosis. She has 2 to 3+ chronic pitting edema. NEUROLOGIC: Nonfocal. Moves all extremities x4. ASSESSMENT AND PLAN: 1. Sepsis, secondary to urinary tract infection. Continue with antibiotics. 2. Leukocytosis. Continue to monitor. 3. Diabetes. Continue with current care monitoring. 4. Elevated liver function tests. We will continue to monitor. 5. Lupus. We will continue to monitor. 6. Polysubstance abuse. The patient does have hydrocodone and benzodiazepines ordered. Her urine drug screen did show methadone, which I have continued discussion with the patient about the origins of the methadone. Please see hospital chart for full details. MD SHARATH Sin/EDVIN /[id number]
[2019-02-19] MEDS: ACETAMINOPHEN 325 MG TAB PO PRN ×2 (11:28→17:44)
--- NOTE | 2019-02-19 11:28 | NUR ---
t101.8. AWARE OF PATIENT'S STATUS. PRN TYLENOL GIVEN ORDERED
--- NOTE | 2019-02-19 14:07 | NUR ---
T102.7. Patient appears more confused. Orders to consult received. Paged
--- NOTE | 2019-02-19 14:12 | NUR ---
WOUND CARE CONSULT 49 YO FEMALE HX OF FALL WITH SUSTAINED LACERATIONS AJ 20 ON CONSERVATIVE PUP LABS: WBC-17.22,HGB- 14.3, GLUCOSE- 284 COMPLETE SKIN ASSESSMENT DONE PATIENT PRESENTS WITH 7CM STAPLE LINE TO RIGHT KNEE AND 10 CM STAPLE LINE TO RIGHT ARM WITH AN EXTENDING 3CM OPEN PARTIAL THICKNESS AREA LEFT ARM HAS PARTIAL THICKNESS WOUND [id number] .2CM RECOMMENDATIONS: NURSING TO CONTINUE TO ASSIST PATIENT TO MAINTAIN DRESSING AREAS CLEAN AND DRY NURSING TO APPLY DAILY BACTROBAN OINTMENT TO STAPLE LINE TO RIGHT KNEE COVER WITH ADAPTIC AND 4X4s SECURE WITH MEDIFIX TAPE NURSING TO APPLY DAILY BACTROBAN OINTMENT TO PARTIAL THICKNESS AREA AND STAPLE LINE TO RIGHT ARM COVER WITH ADAPTIC ,4X4S WRAP WITH KERLIX SECURE WITH TAPE NURSING TO APPLY DAILY XEROFORM JUAN CARLOS TO LEFT ARM PARTIAL THICKNESS WOUND COVER WITH 4X4S WRAP IN KERLIX SECURE WITH TAPE Addendum: 02/19/19 at 1428 by Crow Garces RN Amended: Links added.
--- NOTE | 2019-02-19 15:00 | NUR ---
at bedside. Aware of patient's status.
--- NOTE | 2019-02-19 15:45 | NUR ---
aware patient allergic to cefepime and zyvox. Per "give benadryl prior to abx infusion"
[2019-02-19] MEDS: CEFEPIME 1GM/NS 0.9% 50 ML 50 ML IV SCH (16:10)
[2019-02-19] MEDS: DIPHENHYDRAMINE HCL INJ 50 MG/ML VIAL IV PRN (16:10)
[2019-02-19] MEDS: LINEZOLID 600 MG/D5W 300ML 300 ML IV SCH (16:39)
--- NOTE | 2019-02-19 19:18 | NUR ---
Report given to oncoming nurse of patient's status. Resting in bed. NO s/s of acute distress noted. Boyfriend at bedside, side rails upx2, call light within reach, bed alarm.
--- NOTE | 2019-02-19 19:26 | NUR ---
Patient received sleeping in bed. Family at bedside. Arousable to tactile stimuli. Patient had no signs of pain, discomfort or respiratory distress. IVF infusing at 125 cc/hr. Dressing to bilateral arms and shawn to right knee. Fall precautions implemented. Patient/family instructed to call for assistance when needed. Call light within reach.
--- NOTE | 2019-02-19 20:36 | Diagnostic Imaging Report ---
CT Abdomen and Pelvis without contrast INDICATION: Rule out infection, ^R/O INFECTION ^[id number] ^1999 TECHNIQUE: Thin collimation axial images obtained from the diaphragm to the level of the pubic symphysis without nonionic intravenous contrast. Dose reduction techniques used: Automated exposure control, adjustment of the mAs and/or kVp according to patient size, standardized low-dose protocol, and/or iterative reconstruction technique. RADIATION DOSE: Total DLP: 670.55 mGy*cm Estimated effective dose: (DLP x 0.015 x size factor) mSv CTDIvol has been reviewed. It is below the limits set by the Radiation Protocol Committee (RPC). COMPARISON: CT abdomen/pelvis 01/27/2019. ABDOMEN FINDINGS: Lung Bases: Bibasilar atelectasis. The heart is normal in size. There are prominent pericardial fat pads Liver: Profound steatosis. The right lobe of the liver measures 21 cm in length. No mass. Gallbladder: Absent. Biliary tree: No ductal dilatation. Pancreas: Mildly atrophic without mass or ductal dilatation. Spleen: Normal size without mass. Adrenal Glands: No evidence for mass. Kidneys: Right: Multiple tiny intrarenal calculi. No cortical mass or hydronephrosis Left: 4 mm calculus in the lower pole. No cortical mass or hydronephrosis Lymph Nodes: No enlarged abdominal or periaortic lymph nodes. Aorta: Normal in diameter. PELVIS FINDINGS: Bowel: Stomach: Normal. Small Bowel: Normal in caliber with normal wall thickness. Large Bowel: Diverticulosis coli. No associated inflammation. No focal mural thickening or pericolonic inflammation. Appendix: Normal. Bladder: Well distended and normal. Ureters: No ureteral dilatation or calculus. The uterus is present and normal in morphology. No adnexal mass. Peritoneum/retroperitoneum: No free fluid or loculated fluid collection. Bones: Mild degenerative changes of the left hip and spine. No focal osseous lesions. IMPRESSION: 1. Stable severe steatosis. Hepatomegaly. 2. Diverticulosis coli. No evidence for bowel obstruction or inflammation. Normal appendix. 3. Bilateral intrarenal calculi. No obstructive uropathy. 4. No evidence of loculated fluid collection the abdomen or pelvis. Signed by: Dr. Lizzy Matos MD on 02/19/2019 8:32 PM
--- NOTE | 2019-02-19 23:11 | Consultation ---
DATE OF CONSULTATION: REASON FOR CONSULTATION: Fever. HISTORY OF PRESENT ILLNESS: This patient who is a 49-year-old, known to me from before, who has history of diabetes mellitus, history of chronic pain syndrome, takes multiple pain medications, history of lupus, history of chronic kidney disease stage 3. The patient comes in here after she fell in the hospice few times, have lacerations on her arms. However, the patient is running fever, so I am asked to see her. The patient is currently lying in bed comfortably. Her mother is at the bedside. The patient does not seem to be in good source of information. She seems to be a little bit off, but she is just lying in bed comfortably. When she first came, she had a fever of 101.8, heart rate of 126, respirations of 30, blood pressure of 131/60. Blood cultures and urine cultures obtained. LABORATORY DATA: White count is 17.2, hemoglobin 14. Her lactic acid was elevated. Sodium 132, potassium 3.7, creatinine 1.15, glucose of 284. Lactic acid 3.6. AST 52, ALT 107. Her urine was positive for opiates, methadone as well as benzodiazepine. Chest x-ray, which was done showed no acute abnormality. PHYSICAL EXAMINATION: GENERAL: She is currently alert, but confused. VITAL SIGNS: Stable with fever. HEENT: She is not icteric. NECK: Supple. CHEST: Few crackles bilaterally. COR: S1 and S2. No S3, S4, or murmur. ABDOMEN: Soft. Bowel sounds present. No tenderness. EXTREMITIES: No edema. SKIN: No rash. IMPRESSION AND PLAN: Fever, concerned of infection, concerned other it could be her history of lupus. It is not clear at the present time. Altered mental status, which could be from the drugs that she is taking at home, overdose. We do not have the boyfriend who lives with her. I would recommend to obtain blood cultures and urine cultures. We will put her on cefepime and vancomycin. Her allergy list is long. I am not sure what happens with that. Concern is that Levaquin may make her even worse mentally. Obtain CT abdomen and pelvis and then reassess in the morning. Obtain a collagen workup, a sedimentation rate and C-reactive protein. Further recommendations to follow. If not today, but tomorrow, may have to do a spinal tap or there is no clear source. We will follow. MD EMELIA Turner/EDVIN /[id number]
[2019-02-20] VITALS (8 sets, daily range): BP systolic 90–122; BP diastolic 60–67
[2019-02-20] MEDS: ACETAMINOPHEN 325 MG TAB PO PRN (00:02)
--- NOTE | 2019-02-20 01:08 | NUR ---
Patient complained of pain to bilateral arms (8/10). Acetaminophen 650 mg PO previously administered and patient stated it was not effective for her pain. Dr. Cas munoz. New order received for Dilaudid 1 mg IV Q3H PRN.
[2019-02-20] MEDS: HYDROMORPHONE 1MG/1ML INJ IV PRN ×2 (02:07→14:29)
[2019-02-20] MEDS: DIPHENHYDRAMINE HCL INJ 50 MG/ML VIAL IV PRN ×2 (03:11→16:06)
[2019-02-20] MEDS: CEFEPIME 1GM/NS 0.9% 50 ML 50 ML IV SCH ×2 (03:45→16:06)
[2019-02-20] MEDS: LINEZOLID 600 MG/D5W 300ML 300 ML IV SCH (04:45)
[2019-02-20] MEDS: SODIUM CHLORIDE 0.9% 1000ML 1,000 ML IV SCH ×3 (05:00→21:45)
[2019-02-20 06:26] LABS: BASOPHILS # (AUTO) 0.1 (0.0-0.1); BASOPHILS % 0.5 % (0.0-1.0); EOSINOPHILS # (AUTO) 0.1 (0.0-0.4); EOSINOPHILS % 0.5 % (0.0-6.0); HEMATOCRIT 36.1 % (34.2-44.1); HEMOGLOBIN 11.8 g/dL (12.0-16.0); LYMPHOCYTES # (AUTO) 1.7 (1.0-3.2); MEAN CORPUSCULAR HEMOGLOBIN 32.1 pg (28-32); MEAN CORPUSCULAR HGB CONC 32.7 g/dL (31-35); MEAN CORPUSCULAR VOLUME 98.1 fL (81-99); MONOCYTES # (AUTO) 0.7 (0.2-0.8); MONOCYTES % 3.1 % (4.4-11.3); NEUTROPHILS # (AUTO) 20.6 (2.1-6.9); NEUTROPHILS % 86.7 % (38.7-80.0); PLATELET COUNT 140 x10e3/uL (140-360); RED BLOOD COUNT 3.68 x10e6/uL (3.6-5.1); RED CELL DISTRIBUTION WIDTH 14.7 % (11.7-14.4)
[2019-02-20 06:52] LABS: ALANINE AMINOTRANSFERASE 79 IU/L (0-55); ALBUMIN 1.7 g/dL (3.5-5.0); ALBUMIN/GLOBULIN RATIO 0.5 (0.8-2.0); ALKALINE PHOSPHATASE 151 IU/L (40-150); ANION GAP 12.8 mmol/L (8-16); BLOOD UREA NITROGEN 12 mg/dL (7-26); BUN/CREATININE RATIO 13 (6-25); CALCIUM 7.9 mg/dL (8.4-10.2); CARBON DIOXIDE 16 mmol/L (22-29); CHLORIDE 110 mmol/L (98-107); EST GLOMERULAR FILTRATION RATE > 60 ML/MIN (60-); GLUCOSE 151 mg/dL (74-118); POTASSIUM 3.8 mmol/L (3.5-5.1); SODIUM 135 mmol/L (136-145)
--- NOTE | 2019-02-20 07:00 | NUR ---
Shift report given to oncoming nurse regarding patient's status.
--- NOTE | 2019-02-20 07:00 | NUR ---
received am report and morning rounds done. pt is sleeping, no s/s of distress. call light within reach and side rails are up. shawn on right knee are open to air and are clean and dry. left forearm is wrapped, dressing is c/d/i
[2019-02-20 08:46] LABS: BAND NEUTROPHILS % (MANUAL) 16 %; LYMPHOCYTES % (MANUAL) 3 % (19-48); MONOCYTES % (MANUAL) 7 % (3.4-9.0); NEUTROPHILS % (MANUAL) 74 % (40-74)
[2019-02-20 08:47] LABS: ANISOCYTOSIS SLIGHT; PLATELET ESTIMATE SLIGHTLY DECREASED; PLATELET MORPHOLOGY COMMENT NORMAL; POIKILOCYTOSIS SLIGHT; RBC MORPHOLOGY COMMENT NORMAL; TOXIC GRANULATION MODERATE
[2019-02-20] MEDS ORDERED: SERTRALINE HCL 50 MG TAB PO PRN (09:00)
[2019-02-20] MEDS: INSULIN REGULAR, HUMAN 100 UNIT/1 ML 3ML VIAL SQ SCH ×4 (09:31→21:00)
[2019-02-20] MEDS: MUPIROCIN 2% OINT 22 GM TUBE TOP SCH (09:32)
[2019-02-20] MEDS: ATENOLOL 50 MG TAB PO SCH ×2 (09:32→17:45)
[2019-02-20] MEDS: ONDANSETRON HCL INJ 2MG/ML 2ML 2 MG/ML VIAL IV PRN (14:29)
--- NOTE | 2019-02-20 15:05 | NUR ---
Visit made by the Spiritual Care Department Pastoral Visitor, Litzy Merino. PV provided pastoral presence, prayer, hospitality, and supportive listening. Pastoral Visitor informed pt/family of the scope of [employer] and availability. ELINA SALINAS [employer] Operations Engineer Spiritual Care Department O: [phone] Pager: [phone] ([phone] number calling from)
--- NOTE | 2019-02-20 21:30 | NUR ---
REPORT RECEIVED FROM SILVANA BEAR. CARE ASSUMED. PATIENT AWAKE, ALERT X2 IN NAD, MENTATION UNCHANGED FROM BEFORE. TELE#14 SR@81, CHECKED WITH NET SORTER. PATIENT INSTRUCTED TO CALL FOR ASSISTANCE NEEDED. BED IN LOWEST POSITION, LOCKED, CALL ESPINOSA WITHIN REACH AND BED ALARM ON. WILL CONTINUE TO MONITOR.
[2019-02-21] VITALS (9 sets, daily range): BP systolic 105–136; BP diastolic 56–78
[2019-02-21] MEDS: DIPHENHYDRAMINE HCL INJ 50 MG/ML VIAL IV PRN ×3 (04:10→22:48)
[2019-02-21] MEDS: CEFEPIME 1GM/NS 0.9% 50 ML 50 ML IV SCH ×2 (04:10→15:48)
[2019-02-21] MEDS: SODIUM CHLORIDE 0.9% 1000ML 1,000 ML IV SCH ×3 (04:33→20:33)
[2019-02-21 06:07] LABS: BASOPHILS % 0.2 % (0.0-1.0); EOSINOPHILS # (AUTO) 0.1 (0.0-0.4); EOSINOPHILS % 0.6 % (0.0-6.0); HEMOGLOBIN 10.3 g/dL (12.0-16.0); LYMPHOCYTES # (AUTO) 1.8 (1.0-3.2); MEAN CORPUSCULAR HEMOGLOBIN 32.7 pg (28-32); MEAN CORPUSCULAR HGB CONC 33.2 g/dL (31-35); MEAN CORPUSCULAR VOLUME 98.4 fL (81-99); MONOCYTES # (AUTO) 0.6 (0.2-0.8); MONOCYTES % 3.2 % (4.4-11.3); NEUTROPHILS # (AUTO) 15.1 (2.1-6.9); NEUTROPHILS % 84.3 % (38.7-80.0); PLATELET COUNT 118 x10e3/uL (140-360); RED BLOOD COUNT 3.15 x10e6/uL (3.6-5.1); RED CELL DISTRIBUTION WIDTH 14.7 % (11.7-14.4)
[2019-02-21 06:26] LABS: ALANINE AMINOTRANSFERASE 44 IU/L (0-55); ALBUMIN 1.6 g/dL (3.5-5.0); ALBUMIN/GLOBULIN RATIO 0.5 (0.8-2.0); ALKALINE PHOSPHATASE 118 IU/L (40-150); ANION GAP 12.6 mmol/L (8-16); BLOOD UREA NITROGEN 12 mg/dL (7-26); BUN/CREATININE RATIO 16 (6-25); CALCIUM 7.8 mg/dL (8.4-10.2); CARBON DIOXIDE 16 mmol/L (22-29); CHLORIDE 112 mmol/L (98-107); CREATININE, SERUM 0.75 mg/dL (0.57-1.11); EST GLOMERULAR FILTRATION RATE > 60 ML/MIN (60-); GLUCOSE 158 mg/dL (74-118); POTASSIUM 3.6 mmol/L (3.5-5.1); SODIUM 137 mmol/L (136-145)
[2019-02-21] MEDS: INSULIN REGULAR, HUMAN 100 UNIT/1 ML 3ML VIAL SQ SCH ×4 (07:30→21:00)
--- NOTE | 2019-02-21 07:30 | NUR ---
PATIENT IN BED RESTING WITH EYES CLOSED, NO DISTRESS NOTED. O2 IN PLACE VIA N/C. LACERATION TO LEFT FOREARM, SKIN TEAR TO RIGHT FOREARM WITH DRESSING DRY AND INTACT; STAPLE INTACT TO RIGHT KNEE. EDEMA TO LOWER EXTREMITIES MORE TO LEFT LEG. BED IN LOWER POSITION, CALL LIGHT AT REACH.
[2019-02-21] MEDS: ATENOLOL 50 MG TAB PO SCH ×2 (09:31→17:41)
[2019-02-21] MEDS: HYDROMORPHONE 1MG/1ML INJ IV PRN ×3 (10:40→20:32)
[2019-02-21] MEDS: MUPIROCIN 2% OINT 22 GM TUBE TOP SCH (11:00)
--- NOTE | 2019-02-21 11:18 | NUR ---
DRESSING TO CHANGED TO LEFT FOREARM ORDERED. PATIENT TOLERATED WELL. BED IN LOWER POSITION, CALL LIGHT AT REACH.
[2019-02-21] MEDS: ACETAMINOPHEN 325 MG TAB PO PRN (12:55)
--- NOTE | 2019-02-21 15:58 | NUR ---
IV ANTIBIOTIC STARTED, BENADRYL GIVEN ORDERED BEFORE IV ANTIBIOTIC. NO COMPLAIN VOICED AT THIS TIME. IN BED WITH CALL LIGHT AT REACH.
--- NOTE | 2019-02-21 19:20 | NUR ---
Walking rounds done. Patient is awake, alert and making more sense tonight. Left EJ IV site is intact, flushing well but patient bends neck and occludes. Will try to obtain other access. POC discussed. Patient wants to know when next pain medication is available. EMAR reviewed. Patient instructed to call for assistance prior to getting up. She verbalized understanding. Bed in lowest position, locked, bed alarm on and call young within reach.
[2019-02-22] VITALS (7 sets, daily range): BP systolic 116–144; BP diastolic 69–102
--- NOTE | 2019-02-22 02:00 | NUR ---
PATIENT IS AWAKE, ALERT AND VERY TALKATIVE. NO COMPLAINTS VOICED AT THIS TIME. DRESSINGS INTACT TO BILATERAL ARMS. CALL ESPINOSA WITHIN REACH.
[2019-02-22] MEDS: HYDROMORPHONE 1MG/1ML INJ IV PRN ×5 (03:15→22:15)
[2019-02-22] MEDS: DIPHENHYDRAMINE HCL INJ 50 MG/ML VIAL IV PRN ×4 (03:31→18:31)
[2019-02-22] MEDS: CEFEPIME 1GM/NS 0.9% 50 ML 50 ML IV SCH ×2 (03:31→15:48)
--- NOTE | 2019-02-22 07:21 | NUR ---
PATIENT SITTING UP IN BED TALKING ON THE PHONE. DRESSING DRY AND INTACT TO BOTH FOREARMS, KRISTI INTACT TO RIGHT KNEE. BED IN LOWER POSITION, CALL LIGHT AT REACH.
[2019-02-22] MEDS: INSULIN REGULAR, HUMAN 100 UNIT/1 ML 3ML VIAL SQ SCH ×4 (07:30→21:00)
[2019-02-22] MEDS: ONDANSETRON HCL INJ 2MG/ML 2ML 2 MG/ML VIAL IV PRN ×4 (07:40→22:15)
[2019-02-22] MEDS: ENOXAPARIN 30 MG/0.3 ML SYR SC SCH ×2 (09:40→21:14)
[2019-02-22] MEDS: ATENOLOL 50 MG TAB PO SCH ×2 (09:40→16:56)
[2019-02-22] MEDS: MUPIROCIN 2% OINT 22 GM TUBE TOP SCH (12:53)
--- NOTE | 2019-02-22 16:04 | NUR ---
DRESSING CHANGED TO WOUNDS ORDERED. PATIENT SITTING AT BED SIDE TALKING TO FAMILY MEMBER VISITING. CALL LIGHT AT REACH.
--- NOTE | 2019-02-22 20:13 | NUR ---
RECEIVED PT WALKING IN THE ROOM .PT C/O DIARRHEA .RESPIRATIONS ARE EVEN AND UNLABORED .CALL LIGHT WITH IN REACH .CONTINUE TO MONITOR
[2019-02-23] VITALS (8 sets, daily range): BP systolic 114–126; BP diastolic 62–76
[2019-02-23] MEDS: CEFEPIME 1GM/NS 0.9% 50 ML 50 ML IV SCH ×2 (03:18→16:02)
[2019-02-23] MEDS: DIPHENHYDRAMINE HCL INJ 50 MG/ML VIAL IV PRN ×2 (03:19→10:00)
[2019-02-23] MEDS: HYDROMORPHONE 1MG/1ML INJ IV PRN ×5 (03:33→20:32)
[2019-02-23] MEDS: ONDANSETRON HCL INJ 2MG/ML 2ML 2 MG/ML VIAL IV PRN ×5 (03:33→20:32)
[2019-02-23] MEDS ORDERED: LOPERAMIDE HCL 2 MG CAP PO PRN (05:30)
--- NOTE | 2019-02-23 07:18 | NUR ---
PT C/O PAIN DURING THE NIGHT AND GIVEN ORDERED PAIN MEDICATION .BEDSIDE REPORT GIVEN TO THE ON COMING NURSE
[2019-02-23] MEDS: INSULIN REGULAR, HUMAN 100 UNIT/1 ML 3ML VIAL SQ SCH ×4 (07:30→20:45)
--- NOTE | 2019-02-23 08:15 | NUR ---
PT C/O PAIN MEDICATED,DRSG TO FOREARMS CD&I,STAPLE INTact rt knee
--- NOTE | 2019-02-23 08:55 | Diagnostic Imaging Report ---
EXAMINATION: SINUSES (PARANASAL)MIN 3VIEWS INDICATION: Sinus pain COMPARISON: None FINDINGS: Mild relative opacification of the right maxillary sinus compared to the left. The remaining paranasal sinuses appear clear. The mastoid air cells are well aerated. IMPRESSION: Mild opacification of the right maxillary sinus, which can be seen with fluid or mucosal thickening. Signed by: Charo Blanco MD on 02/23/2019 8:51 AM
[2019-02-23] MEDS: ENOXAPARIN 30 MG/0.3 ML SYR SC SCH ×2 (09:00→20:32)
[2019-02-23] MEDS: ATENOLOL 50 MG TAB PO SCH ×2 (09:00→17:00)
--- NOTE | 2019-02-23 09:20 | NUR ---
ASSESSMENT: Spiritual concern Visit made by SHANNON Connor. Pt identifies as Presbyterian. Pt misses family during illness. Intervention: Food Products Tester provided pastoral presence and facilitated storytelling. Outcome: Pt expressed appreciation for visit. ELINA Stevenson Spiritual Care Department O: [phone] Pager: [phone] ([phone] number calling from)
--- NOTE | 2019-02-23 10:00 | NUR ---
PT C/O ITCHING MEDICATED
[2019-02-23] MEDS: MUPIROCIN 2% OINT 22 GM TUBE TOP SCH (14:16)
--- NOTE | 2019-02-23 17:43 | NUR ---
PT UP IN ROOM AMBULATING ,PPAIN LEVEL 3,NO DISTRESS NOTED.
--- NOTE | 2019-02-23 19:11 | NUR ---
Received bedside report from day nurse. Patient resting in bed, no s/s of distress or c/o pain at this time. All safety measures in place. Will continue to monitor.
[2019-02-24] VITALS (8 sets, daily range): BP systolic 113–126; BP diastolic 57–67
[2019-02-24] MEDS: DIPHENHYDRAMINE HCL INJ 50 MG/ML VIAL IV PRN ×2 (04:03→21:07)
[2019-02-24] MEDS: CEFEPIME 1GM/NS 0.9% 50 ML 50 ML IV SCH (04:06)
[2019-02-24] MEDS: HYDROMORPHONE 1MG/1ML INJ IV PRN ×5 (04:14→21:08)
[2019-02-24] MEDS: ONDANSETRON HCL INJ 2MG/ML 2ML 2 MG/ML VIAL IV PRN ×4 (04:14→21:08)
--- NOTE | 2019-02-24 06:57 | NUR ---
Gave bedside report to day nurse. Patient awake, alert and oriented, sitting up in bed, no s/s of distress or c/o pain at this time. All safety measures in place.
[2019-02-24 07:05] LABS: BASOPHILS # (AUTO) 0.1 (0.0-0.1); BASOPHILS % 0.5 % (0.0-1.0); EOSINOPHILS # (AUTO) 0.1 (0.0-0.4); EOSINOPHILS % 0.9 % (0.0-6.0); HEMATOCRIT 38.5 % (34.2-44.1); HEMOGLOBIN 12.5 g/dL (12.0-16.0); LYMPHOCYTES # (AUTO) 2.3 (1.0-3.2); LYMPHOCYTES % 17.6 % (18.0-39.1); MEAN CORPUSCULAR HEMOGLOBIN 32.1 pg (28-32); MEAN CORPUSCULAR HGB CONC 32.5 g/dL (31-35); MEAN CORPUSCULAR VOLUME 98.7 fL (81-99); MONOCYTES # (AUTO) 0.6 (0.2-0.8); MONOCYTES % 4.4 % (4.4-11.3); NEUTROPHILS # (AUTO) 9.7 (2.1-6.9); NEUTROPHILS % 73.6 % (38.7-80.0); PLATELET COUNT 210 x10e3/uL (140-360); RED CELL DISTRIBUTION WIDTH 14.8 % (11.7-14.4)
[2019-02-24 07:25] LABS: ALANINE AMINOTRANSFERASE 31 IU/L (0-55); ALBUMIN 2.2 g/dL (3.5-5.0); ALBUMIN/GLOBULIN RATIO 0.6 (0.8-2.0); ALKALINE PHOSPHATASE 233 IU/L (40-150); ANION GAP 14.3 mmol/L (8-16); BLOOD UREA NITROGEN 8 mg/dL (7-26); BUN/CREATININE RATIO 12 (6-25); CARBON DIOXIDE 21 mmol/L (22-29); CHLORIDE 108 mmol/L (98-107); CREATININE, SERUM 0.67 mg/dL (0.57-1.11); EST GLOMERULAR FILTRATION RATE > 60 ML/MIN (60-); GLUCOSE 174 mg/dL (74-118); MAGNESIUM 1.8 MG/DL (1.3-2.1); POTASSIUM 4.3 mmol/L (3.5-5.1); SODIUM 139 mmol/L (136-145)
--- NOTE | 2019-02-24 07:30 | NUR ---
PT UP IN BED AWAKE NO DISTRESS NOTED.
[2019-02-24] MEDS: ATENOLOL 50 MG TAB PO SCH ×2 (08:21→17:00)
[2019-02-24] MEDS: ENOXAPARIN 30 MG/0.3 ML SYR SC SCH ×2 (08:21→21:07)
[2019-02-24] MEDS: INSULIN REGULAR, HUMAN 100 UNIT/1 ML 3ML VIAL SQ SCH ×4 (08:28→21:06)
--- NOTE | 2019-02-24 08:30 | NUR ---
C/O PAIN LEVEL 6. MEDICATED
[2019-02-24] MEDS: MUPIROCIN 2% OINT 22 GM TUBE TOP SCH (09:00)
--- NOTE | 2019-02-24 16:13 | NUR ---
Nutrition Screen Note RD Recommendation for Physician: Continue diet and Glucerna Shake as ordered Plan of Care: RD following, monitoring for tolerance and adequacy Nutrition reason for involvement: LOS Primary Diagnose(s): Fall, laceration of and and leg PMH: lupus, edema, polysubstance abuse, UTI, T2DM, CKD stage 3, Ht: 64in Wt:174lb BMI: 29.9kg/m2 IBW:29.9lb +/-10% RD Assessment: (02/24/2019) Chart reviewed. Labs and meds reviewed. Initial encounter with patient. Food allergies to Seafood and shellfish confirmed. Pt with most teeth missing, but denies any difficulty chewing or swallowing. Pt does have nausea. normal BM. Some lower extremity edema. Pt is taking glucerna shakes with meals. Current Diet: 1800 ADA Malnutrition Evaluation (02/24/2019) The patient does not meet criteria for a specified degree of malnutrition at this time. Will re-evaluate at follow-up as appropriate. Diet Education Needs Assessment: Diet education not indicated. Nutrition Care Level: Low Signed: Cade Del Castillo RD, LD, [facility]
--- NOTE | 2019-02-24 19:11 | NUR ---
Received bedside report from day nurse. Patient sitting up in bed, alert and oriented, no s/s of distress or c/o pain at this time. All safety measures in place. Will continue to monitor.
[2019-02-24] MEDS: CEFAZOLIN SOD 1 GM/NS 50ML 50 ML IV SCH (21:07)
[2019-02-24] MEDS ORDERED: CEFAZOLIN SOD 1 GM VIAL IV SCH (22:00)
[2019-02-25] VITALS (7 sets, daily range): BP systolic 104–134; BP diastolic 55–75
[2019-02-25] MEDS: DIPHENHYDRAMINE HCL INJ 50 MG/ML VIAL IV PRN ×6 (00:34→23:00)
[2019-02-25] MEDS: ONDANSETRON HCL INJ 2MG/ML 2ML 2 MG/ML VIAL IV PRN ×6 (01:07→23:00)
[2019-02-25] MEDS: HYDROMORPHONE 1MG/1ML INJ IV PRN ×6 (01:07→23:00)
[2019-02-25] MEDS: CEFAZOLIN SOD 1 GM/NS 50ML 50 ML IV SCH ×3 (06:02→22:00)
--- NOTE | 2019-02-25 06:59 | NUR ---
Gave bedside report to day nurse. Patient sitting up in bed, alert and oriented, no s/s of distress or c/o pain at this time. All safety measures in place.
[2019-02-25] MEDS: INSULIN REGULAR, HUMAN 100 UNIT/1 ML 3ML VIAL SQ SCH ×4 (07:30→22:00)
--- NOTE | 2019-02-25 07:30 | NUR ---
PT UP IN BED NO DISTRESS NOTED ,PAIN LEVEL 2
[2019-02-25] MEDS: ATENOLOL 50 MG TAB PO SCH ×2 (09:00→16:52)
[2019-02-25] MEDS: MUPIROCIN 2% OINT 22 GM TUBE TOP SCH (09:00)
[2019-02-25] MEDS: ENOXAPARIN 30 MG/0.3 ML SYR SC SCH ×2 (09:00→21:00)
--- NOTE | 2019-02-25 16:52 | NUR ---
DRSG TO BILATERAL ARMS CHANGED ORDERED.
--- NOTE | 2019-02-25 18:23 | History and Physical ---
SUBJECTIVE: Ms. Raza is lying in bed comfortably. There are no new complaints. She seems more alert. REVIEW OF SYSTEMS: HEENT: Negative. PULMONARY: Negative. CARDIAC: Negative. : Negative. LABORATORY DATA: Reviewed. Her cultures from the urine showed Klebsiella pneumonia, which was pansensitive, resistant only to ampicillin, cefuroxime, and nitrofurantoin. White count is 13.13 and hemoglobin of 12. PHYSICAL EXAMINATION: GENERAL: She is currently alert and oriented, follows commands. VITAL SIGNS: Stable, afebrile. Temperature 99.8. HEENT: Not icteric. NECK: Supple. CHEST: Clear. HEART: S1 and S2. No S3, S4, or murmurs. ABDOMEN: Soft. Bowel sounds present. No tenderness. EXTREMITIES: No edema. IMPRESSION: 1. Urinary tract infection and sepsis, on admission, better. 2. Can switch to oral Keflex 5 mg p.o. t.i.d. to finish 14 days. 3. History of lupus, history of chronic pain syndrome, history of chronic kidney disease, history of anemia, so far stable. Discharge planning per Internal Medicine. MD EMELIA Turner/EDVIN /[id number]
--- NOTE | 2019-02-25 23:30 | NUR ---
PT IN BED, NO DISTRESS NOTED, CALL LIGHT IN REACH, VS WNL
[2019-02-26] VITALS: BP 133/65
[2019-02-26] MEDS: DIPHENHYDRAMINE HCL INJ 50 MG/ML VIAL IV PRN ×2 (02:52→06:45)
[2019-02-26] MEDS: HYDROMORPHONE 1MG/1ML INJ IV PRN ×2 (02:52→06:45)
[2019-02-26] MEDS: ONDANSETRON HCL INJ 2MG/ML 2ML 2 MG/ML VIAL IV PRN ×2 (02:52→06:58)
[2019-02-26 04:00] VITALS: BP 122/65
[2019-02-26] MEDS: CEFAZOLIN SOD 1 GM/NS 50ML 50 ML IV SCH (06:00)
[2019-02-26] MEDS: INSULIN REGULAR, HUMAN 100 UNIT/1 ML 3ML VIAL SQ SCH (07:30)
[2019-02-26 08:00] VITALS: BP 164/72
[2019-02-26] MEDS: ATENOLOL 50 MG TAB PO SCH (08:18)
[2019-02-26] MEDS: ENOXAPARIN 30 MG/0.3 ML SYR SC SCH (08:18)
[2019-02-26] MEDS: MUPIROCIN 2% OINT 22 GM TUBE TOP SCH (08:18)
--- NOTE | 2019-02-26 10:02 | Discharge Summary ---
DISCHARGE DIAGNOSES: 1. Sepsis secondary to urinary tract infection. 2. Leukocytosis. 3. Lupus. HISTORY OF PRESENT ILLNESS AND HOSPITAL COURSE: See hospital chart for full details. The patient is a lady, who presented with acute fever and was encephalopathic. She was found to be in sepsis secondary to urinary tract infection, in which urine culture did grow out Klebsiella. She was initially placed on IV antibiotics and showed significant improvement. By the time of discharge, she was back to her baseline, doing well, so she was switched over to p.o. Keflex to finish out her course. Of an incidental note, she did have an abnormal urine drug screen for methadone. We went ahead and had a discussion with the family as well as the patient. There has been no evidence of methadone use and the patient does take high doses of Benadryl for all her allergies to medications and literature does support the use of Benadryl causing a false positive on the methadone, which is more plausible for this patient. Please see hospital chart for full details. MD SHARATH Sin/EDVIN /[id number]
--- NOTE | 2019-02-26 12:22 | NUR ---
PATIENT DISCHARGE HOME - PATIENT OFF THE UNIT AT 1029 PER WHEELCHAIR ACCOMPANIED BY STAFF MEMBER TO THE FRONT LOBBY. PATIENT IS IN STABLE CONDITION WITH NO S/S OF RESPIRATORY DISTRESS. NO PAIN VOICED. IV'S TO LEFT EJ AND LEFT UPPER ARM WERE REMOVED WITH TIP INTACT. DISCHARGE TEACHING, INSTRUCTIONS, AND MEDICATIONS GIVEN TO THE PATIENT. ALL PERSONAL ITEMS WERE TAKEN WITH THE PATIENT AND HER DAUGHTER.
== END 2019-02-26 10:53 | disposition home or self-care (01) | DRG 872 ==
LOC: ER 00:25 → ERHOLD 05:25 → MED/SURG3 06:45
PROVIDERS: ADMIT Internal Medicine; ATTEND Internal Medicine
DX: A41.89 Other specified sepsis (principal); N39.0 Urinary tract infection, site not specified; M32.9 Systemic lupus erythematosus, unspecified; B96.1 Klebsiella pneumoniae [K. pneumoniae] as the cause of diseases classified elsewhere; I12.9 Hypertensive chronic kidney disease with stage 1 through stage 4 chronic kidney disease, or unspecified chronic kidney disease; N18.3 Chronic kidney disease, stage 3 (moderate); G89.4 Chronic pain syndrome; F19.188 Other psychoactive substance abuse with other psychoactive substance-induced disorder; J04.0 Acute laryngitis; K57.90 Diverticulosis of intestine, part unspecified, without perforation or abscess without bleeding; R65.20 Severe sepsis without septic shock; E11.22 Type 2 diabetes mellitus with diabetic chronic kidney disease
CPT/HCPCS: 36415; 70220; 70450; 71045; 72125; 73522; 74176; 80053; 80307; 81001; 82550; 82553; 82948; 83605; 83735; 84484; 85025; 85610; 85651; 85730; 86140; 87040; 87086; 87186; 93005; 96372; 97139; 99284; J0690; J0692; J1170; J1200; J1650; J1817; J1956; J2001; J2020; J2405; J7030

== ENCOUNTER 2019-10-01 05:18 | Inpatient (IN) | payer OTHER ==
[~2019-10-01] VITALS: Ht 162.6 cm; Wt 79.6 kg
--- NOTE | 2019-10-01 05:53 | Emergency Department Note ---
History of Present Illnes History of Present Illness Chief Complaint: General Medicine Complaints History of Present Illness This is a 49 year old female PRESENTS TO ED WITH PITTING EDEMA AND BRUISING IN VARIOUS STAGES OF HEALING TO BLE; PT REPORTS FALL ON TUESDAY MORNING, DENIES LOC; BUT STATES HIT HER HEAD AND HAS A HEAD ACHE PT STATES, "I'M HAVING A LUPUS FLARE UP;" PT ALSO STATES, "I HAD AN ANAPHYLACTIC REACTION LAST NIGHT AT 1700 (12 HRS AGO) AND HAD TO GIVE MYSELF AN EPI INJECTION AND I TOOK 4 BENADRYL. PT ALSO REPORTS HAVEING A 102 TEMP AT HOME EARLIER., PT REQUESTING I CALL DR CARDOZO.. Historian: Patient Arrival Mode: Car Onset (how long ago): day(s) (2) Location: LEGS Quality: SWELLING ADN BRUISING Radiation: Reports non-radiation Severity: moderate Onset quality: sudden Duration (how long): day(s) (2) Progression: unchanged Relieving factors: none Exacerbating factors: movement Associated symptoms: Reports denies other symptoms, Reports fever/chills (102 LAST NIGHT) (FUNMILAYO CALLOWAY MD) Past Medical/Family History Physician Review I have reviewed the patient's past medical and family history. Any updates have been documented here. (FUNMILAYO CALLOWAY MD) Past Medical History Recent Fever: Yes Clinical Suspicion of Infectio: Yes New/Unexplained Change in Ment: No Past Medical History: Diabetes, Kidney Stones, Migraines, Anxiety, H yperlipedemia, Lupus Other Medical History: Lyme disease, lymphadema, lympharrhea Past Surgical History: Tubal Ligation Other Surgery: tonsillectomy,wisdom teeth removal, cyst drainage (FUNMILAYO ACLLOWAY MD) Social History Smoking Cessation: Never Smoker Counseling Performed: No Alcohol Use: None Any Illegal Drug Use: No TB Exposure/Symptoms: No Physically hurt or threatened: No (FUNMILAYO CALLOWAY MD) Family History Family history of heart diseas: No (FUNMILAYO CALLOWAY MD) Other Last Tetanus: UTD Any Pre-Existing Lines (PICC,: No Is patient up to date on immun: Yes Last Flu: DENIES Last Pneumovax: DENIES (FUNMILAYO CALLOWAY MD) Review of Systems Review of Systems Constitutional: Reports no symptoms EENTM: Reports no symptoms Cardiovascular: Reports no symptoms Respiratory: Reports no symptoms Gastrointestinal: Reports no symptoms Genitourinary: Reports no symptoms Musculoskeletal: Reports as per HPI Integumentary: Reports no symptoms Neurological: Reports no symptoms Psychological: Reports no symptoms Endocrine: Reports no symptoms Hematological/Lymphatic: Reports no symptoms (FUNMILAYO CALLOWAY MD) Physical Exam Related Data Allergies: Coded Allergies: Fish Containing Products (Verified Allergy, Severe, 04/09/18) shellfish derived (Verified Allergy, Severe, 04/09/18) vancomycin (Verified Allergy, Severe, honey symdrome?, 04/09/18) bacitracin (Verified Allergy, Intermediate, causes skin to get yellow and crusty, 04/09/18) linezolid (Verified Allergy, Intermediate, 04/11/18) PATIENT HAS HIVES TO ARMS, LEGS , AND ABD AND BACK neomycin (Verified Allergy, Intermediate, causes skin to get crusty and yellow, 04/09/18) polymyxin B (Verified Allergy, Intermediate, causes skin to get crusty and yellow, 04/09/18) cefepime (Verified Allergy, Unknown, 11/17/18) iodine (Verified Allergy, Unknown, 04/09/18) meropenem (Verified Adverse Reaction, Unknown, hives, 11/18/18) Uncoded Allergies: CHITOSAN (Allergy, Unknown, 07/06/16) Triage Vital Signs Vital Signs Date Time Temp Pulse Resp B/P (MAP) Pulse Ox O2 Delivery O2 Flow Rate FiO2 10/01/19 05:24 98.4 88 17 166/102 97 Vital signs reviewed: Yes (FUNMILAYO CALLOWAY MD) Physical Exam CONSTITUTIONAL Constitutional: Present well-developed, Present well-nourished HENT HENT: Present normocephalic, Present atraumatic, Present oropharynx clear/moist, Present nose normal HENT L/R: Present left ext ear normal, Present right ext ear normal EYES Eyes: Reports PERRL, Reports conjunctivae normal NECK Neck: Present ROM normal PULMONARY Pulmonary: Present effort normal, Present breath sounds normal CARDIOVASCULAR Cardiovascular: Present regular rhythm, Present heart sounds normal, Present capillary refill normal, Present normal rate GASTROINTESTINAL Abdominal: Present soft, Present nontender, Present bowel sounds normal GENITOURINARY Genitourinary: Present exam deferred SKIN Skin: Present warm, Present dry MUSCULOSKELETAL Musculoskeletal: Present ROM normal, Present edema (TO BILATERAL LOWER EXTREMITIES), Present other (ERYTHMEMA TO BOTH LOWER EXTREMITIES WELL BRUISING) NEUROLOGICAL Neurological: Present alert, Present oriented x 3, Present no gross motor or sensory deficits PSYCHOLOGICAL Psychological: Present mood/affect normal, Present judgement normal (FUNMILAYO CALLOWAY MD) Results Laboratory Laboratory Laboratory Tests Test 10/01/19 05:50 White Blood Count 17.20 x10e3/uL (4.8-10.8) Red Blood Count 4.41 x10e6/uL (3.6-5.1) Hemoglobin 14.4 g/dL (12.0-16.0) Hematocrit 42.7 % (34.2-44.1) Mean Corpuscular Volume 96.8 fL (81-99) Mean Corpuscular Hemoglobin 32.7 pg (28-32) Mean Corpuscular Hemoglobin Concent 33.7 g/dL (31-35) Red Cell Distribution Width 13.9 % (11.7-14.4) Platelet Count 346 x10e3/uL (140-360) Neutrophils (%) (Auto) 71.7 % (38.7-80.0) Lymphocytes (%) (Auto) 16.3 % (18.0-39.1) Monocytes (%) (Auto) 5.6 % (4.4-11.3) Eosinophils (%) (Auto) 0.2 % (0.0-6.0) Basophils (%) (Auto) 0.5 % (0.0-1.0) Neutrophils # (Auto) 12.3 (2.1-6.9) Lymphocytes # (Auto) 2.8 (1.0-3.2) Monocytes # (Auto) 1.0 (0.2-0.8) Eosinophils # (Auto) 0.0 (0.0-0.4) Basophils # (Auto) 0.1 (0.0-0.1) Absolute Immature Granulocyte (auto 0.98 x10e3/uL (0-0.1) Sodium Level 136 mmol/L (136-145) Potassium Level 3.9 mmol/L (3.5-5.1) Chloride Level 101 mmol/L (98-107) Carbon Dioxide Level 22 mmol/L (22-29) Anion Gap 16.9 mmol/L (8-16) Blood Urea Nitrogen 17 mg/dL (7-26) Creatinine 1.14 mg/dL (0.57-1.11) Estimat Glomerular Filtration Rate 51 ML/MIN (60-) BUN/Creatinine Ratio 15 (6-25) Glucose Level 231 mg/dL (74-118) Calcium Level 9.3 mg/dL (8.4-10.2) Total Bilirubin 0.3 mg/dL (0.2-1.2) Aspartate Amino Transf (AST/SGOT) 19 IU/L (5-34) Alanine Aminotransferase (ALT/SGPT) 39 IU/L (0-55) Alkaline Phosphatase 112 IU/L (40-150) Total Protein 7.1 g/dL (6.5-8.1) Albumin 3.4 g/dL (3.5-5.0) Globulin 3.7 g/dL (2.3-3.5) Albumin/Globulin Ratio 0.9 (0.8-2.0) Lab results reviewed: Yes (FUNMILAYO CALLOWAY MD) Assessment & Plan Medical Decision Making MDM Patient presents with swelling and bruises to bilateral arms from his after a fall on Tuesday. She also reports having an allergic reaction last night after eating tacos from Dr. watt and she believes there were contaminated with shellfish states she is EpiPen and took 4 Benadryl. Patient requested I call Dr. Cardozo. I spoke with Dr. Carrillo said he had patient's and pictures of her legs to him the other day because she gets cellulitis. Easing her lower extremities. Today pictures of her legs and some mentum which I did. I spoke with Dr. Chadwick said the legs of the symptoms again after the fall 2 days ago didn't see evidence of cellulitis. We'll get CBC CMP and a UA. CT scan brain ordered to rule out intracranial abnormality/injury. (FUNMILAYO CALLOWAY MD) MDM Signout C from Dr. Calloway to involve CT brain. CT brain results reviewed, normal with no acute intracranial abnormality noted. (SHEY EWING, DO) Assessment & Plan Final Impression: (1) Edema (2) Lupus (3) Elevated WBC count (4) Cellulitis of both lower extremities (FUNMILAYO CALLOWAY MD) Depart Disposition: ADMITTED Last Vital Signs Date Time Temp Pulse Resp B/P (MAP) Pulse Ox O2 Delivery O2 Flow Rate FiO2 10/01/19 05:24 98.4 88 17 166/102 97 (FUNMILAYO CALLOWAY MD) Home Meds Reported Medications Sertraline Hcl (SERTRALINE HCL) 50 Mg Tablet, 50 MG PO DAILY PRN for AGITATION 02/07/19 Albuterol Sulfate (VENTOLIN HFA) 18 Gm Hfa.aer.ad, PO Q4HR PRN for ALLERGY 11/18/18 [Santyl] No Conflict Check, 1 APPLIC TOP DAILY 11/18/18 Furosemide (FUROSEMIDE) 40 Mg Tablet, 40 MG PO DAILY PRN for SWELLING 11/18/18 Epinephrine (EPINEPHRINE) 0.3 Mg/0.3 Ml Pen.injctr 11/18/18 Lisinopril (LISINOPRIL) 2.5 Mg Tablet, 2.5 MG PO DAILY PRN for BLOOD PRESSURE PER PATIENT, PT ONLY TAKES LISINOPPRIL NEEDED. 11/18/18 Glimepiride (GLIMEPIRIDE) 4 Mg Tablet, 4 MG PO DAILY 11/18/18 Cyclobenzaprine Hcl (CYCLOBENZAPRINE HCL) 10 Mg Tablet, 10 MG PO TID PRN for MUSCLE SPASMS 11/18/18 Hydrocodone Bit/Acetaminophen (HYDROCODON-ACETAMINOPHN 10-325) 1 Each Tablet, 1 TAB PO Q8H PRN for MODERATE PAIN (4-6) 11/18/18 Zolpidem Tartrate (ZOLPIDEM TARTRATE) 10 Mg Tablet, 10 MG PO HS 11/18/18 Alprazolam (ALPRAZOLAM) 0.25 Mg Tablet, 0.25 MG PO TID PRN for ANXIETY 11/18/18 Promethazine Hcl (PROMETHAZINE HCL) 25 Mg Tablet, 25 MG PO Q 6 H PRN 10/16/12 Atenolol (ATENOLOL) 25 Mg Tablet, 25 MG PO BID 06/25/12 FUNMILAYO CALLOWAY MD Oct 01, 2019 05:53 SHEY EWING DO Oct 01, 2019 07:50
[2019-10-01 06:09] LABS: BASOPHILS # (AUTO) 0.1 (0.0-0.1); BASOPHILS % 0.5 % (0.0-1.0); EOSINOPHILS % 0.2 % (0.0-6.0); HEMATOCRIT 42.7 % (34.2-44.1); HEMOGLOBIN 14.4 g/dL (12.0-16.0); LYMPHOCYTES # (AUTO) 2.8 (1.0-3.2); LYMPHOCYTES % 16.3 % (18.0-39.1); MEAN CORPUSCULAR HEMOGLOBIN 32.7 pg (28-32); MEAN CORPUSCULAR HGB CONC 33.7 g/dL (31-35); MEAN CORPUSCULAR VOLUME 96.8 fL (81-99); MONOCYTES % 5.6 % (4.4-11.3); NEUTROPHILS # (AUTO) 12.3 (2.1-6.9); NEUTROPHILS % 71.7 % (38.7-80.0); PLATELET COUNT 346 x10e3/uL (140-360); RED BLOOD COUNT 4.41 x10e6/uL (3.6-5.1); RED CELL DISTRIBUTION WIDTH 13.9 % (11.7-14.4)
[2019-10-01] MEDS ORDERED: HYDROCODONE/APAP 10MG-325MG TAB PO ONE (06:15)
[2019-10-01] MEDS ORDERED: DIPHENHYDRAMINE HCL INJ 50 MG/ML VIAL IV ONE (06:45)
[2019-10-01] MEDS ORDERED: HYDROCODONE/APAP 10MG-325MG TAB PO PRN (06:45)
[2019-10-01] MEDS ORDERED: DEXTROSE 50% SYRINGE 50 ML IV PRN (06:45)
[2019-10-01] MEDS ORDERED: ACETAMINOPHEN 325 MG TAB PO PRN (06:45)
[2019-10-01 06:47] LABS: ALBUMIN 3.4 g/dL (3.5-5.0); ALBUMIN/GLOBULIN RATIO 0.9 (0.8-2.0); ANION GAP 16.9 mmol/L (8-16); CALCIUM 9.3 mg/dL (8.4-10.2); CREATININE, SERUM 1.14 mg/dL (0.57-1.11); POTASSIUM 3.9 mmol/L (3.5-5.1)
--- NOTE | 2019-10-01 06:52 | NUR ---
REPORT GIVEN TO MONICA PINA
--- NOTE | 2019-10-01 07:12 | Diagnostic Imaging Report ---
History: Head injury Comparison studies: None Technique: Axial images were obtained from the skull base to the vertex. Coronal and sagittal reconstructions obtained from the axial data. Dose modulation, iterative reconstruction, and/or weight based adjustment of the mA/kV was utilized to reduce the radiation dose to as low as reasonably achievable. Findings: Scalp/skull: No abnormalities. No fractures, blastic or lytic lesions. Extra-axial spaces: No masses. No fluid collections. Brain sulci: Appropriate for age. Ventricles: Normal in size and configuration. No hydrocephalus. Parenchyma: No abnormal densities. No masses, hemorrhage, acute or chronic cortical vascular insults. Sellar/suprasellar region: No abnormalities Craniocervical junction: Patent foramen magnum. No Chiari one malformation. IMPRESSION: No abnormalities . Signed by: DR Walt Horan M.D. on 10/01/2019 7:09 AM
[2019-10-01] MEDS: HYDROMORPHONE 1MG/1ML INJ IV PRN ×4 (07:29→18:30)
--- NOTE | 2019-10-01 08:02 | NUR ---
Blood cultures and labs drawn and sent.
[2019-10-01 08:18] LABS: BILIRUBIN,URINE NEGATIVE (NEGATIVE); CLARITY,URINE CLEAR (CLEAR); COLOR,URINE YELLOW (YELLOW); KETONES,URINE NEGATIVE (NEGATIVE); LEUKOCYTE ESTERASE ,URINE NEGATIVE (NEGATIVE); NITRITE,URINE NEGATIVE (NEGATIVE); PROTEIN,URINE DIPSTICK NEGATIVE (NEGATIVE); URINE UROBILINOGEN 0.2 mg/dL (0.2 - 1)
[2019-10-01 08:36] LABS: RBC,URINE 0-5 /HPF (0-5); WBC,URINE (MAN) 0-5 /HPF (0-5)
[2019-10-01 08:37] LABS: BACTERIA,URINE FEW /HPF; EPITHELIAL CELLS,URINE FEW /LPF; YEAST,URINE RARE
[2019-10-01] MEDS: LEVOFLOXACIN 500MG/D5W 100ML 100 ML IV SCH (09:00)
[2019-10-01] MEDS: INSULIN REGULAR, HUMAN 100 UNIT/1 ML 3ML VIAL SQ SCH ×4 (10:01→21:00)
[2019-10-01 10:39] LABS: EOSINOPHILS % (MANUAL) 1 % (0-7); LYMPHOCYTES % (MANUAL) 20 % (19-48); MONOCYTES % (MANUAL) 9 % (3.4-9.0); NEUTROPHILS % (MANUAL) 70 % (40-74)
[2019-10-01 10:40] LABS: HYPOCHROMASIA SLIGHT; PLATELET ESTIMATE ADEQUATE; PLATELET MORPHOLOGY COMMENT NORMAL; RBC MORPHOLOGY COMMENT NORMAL
[2019-10-01 23:45] VITALS: BP 169/90
--- NOTE | 2019-10-01 23:45 | NUR ---
Patient received via stretcher from ER. AAO x 4. Patient had no complaints of pain. Respirations even and non-labored. Admission history obtained. Initial physical assessment performed. Patient oriented to room, call light and plan of care. Safety measures implemented. Patient instructed to call for assistance when needed. Call light within reach.
[2019-10-02] VITALS (9 sets, daily range): BP systolic 142–171; BP diastolic 68–94
[2019-10-02] MEDS: HYDROMORPHONE 1MG/1ML INJ IV PRN ×7 (01:15→23:13)
[2019-10-02] MEDS: ONDANSETRON HCL INJ 2MG/ML 2ML 2 MG/ML VIAL IV PRN ×5 (04:15→19:40)
[2019-10-02] MEDS ORDERED: SODIUM CHLORIDE 0.9% 250ML 250 ML ONE (05:12)
--- NOTE | 2019-10-02 05:15 | NUR ---
Dr. Cardozo here to see patient. New order received for Benadryl 50 mg Q4H PRN .
[2019-10-02 05:50] LABS: BASOPHILS # (AUTO) 0.1 (0.0-0.1); BASOPHILS % 0.5 % (0.0-1.0); EOSINOPHILS % 0.1 % (0.0-6.0); HEMOGLOBIN 13.9 g/dL (12.0-16.0); LYMPHOCYTES # (AUTO) 2.8 (1.0-3.2); LYMPHOCYTES % 14.6 % (18.0-39.1); MEAN CORPUSCULAR HEMOGLOBIN 32.8 pg (28-32); MEAN CORPUSCULAR HGB CONC 33.9 g/dL (31-35); MEAN CORPUSCULAR VOLUME 96.7 fL (81-99); MONOCYTES # (AUTO) 1.2 (0.2-0.8); MONOCYTES % 6.1 % (4.4-11.3); NEUTROPHILS # (AUTO) 14.2 (2.1-6.9); NEUTROPHILS % 75.1 % (38.7-80.0); PLATELET COUNT 323 x10e3/uL (140-360); RED BLOOD COUNT 4.24 x10e6/uL (3.6-5.1); RED CELL DISTRIBUTION WIDTH 13.8 % (11.7-14.4)
[2019-10-02 06:04] LABS: ALANINE AMINOTRANSFERASE 59 IU/L (0-55); ALBUMIN/GLOBULIN RATIO 0.9 (0.8-2.0); ALKALINE PHOSPHATASE 101 IU/L (40-150); ANION GAP 14.1 mmol/L (8-16); BLOOD UREA NITROGEN 15 mg/dL (7-26); BUN/CREATININE RATIO 19 (6-25); CALCIUM 8.6 mg/dL (8.4-10.2); CARBON DIOXIDE 24 mmol/L (22-29); CHLORIDE 100 mmol/L (98-107); CREATININE, SERUM 0.81 mg/dL (0.57-1.11); EST GLOMERULAR FILTRATION RATE > 60 ML/MIN (60-); GLUCOSE 194 mg/dL (74-118); POTASSIUM 4.1 mmol/L (3.5-5.1); SODIUM 134 mmol/L (136-145)
[2019-10-02] MEDS ORDERED: HYDROCODONE/APAP 10MG-325MG TAB PO PRN (06:15)
[2019-10-02] MEDS ORDERED: ALBUTEROL/IPRATROPIUM 3 ML NEB NEB PRN (06:15)
[2019-10-02] MEDS ORDERED: SERTRALINE HCL 50 MG TAB PO PRN (06:15)
[2019-10-02] MEDS ORDERED: CYCLOBENZAPRINE HCL 10 MG TAB PO PRN (06:15)
[2019-10-02] MEDS: LEVOFLOXACIN 500MG/D5W 100ML 100 ML IV SCH (06:34)
--- NOTE | 2019-10-02 07:00 | NUR ---
Walking rounds done. Patient resting comfortably. Bed-side report given to oncoming nurse.
[2019-10-02] MEDS: FLUCONAZOLE 100 MG TAB PO SCH (08:18)
[2019-10-02] MEDS: GLIMEPIRIDE 2 MG TAB PO SCH (08:18)
[2019-10-02] MEDS: FUROSEMIDE 40 MG TAB PO PRN (08:22)
[2019-10-02] MEDS: LISINOPRIL 2.5 MG TAB PO PRN (08:22)
[2019-10-02] MEDS: ALPRAZOLAM 0.25 MG TAB PO PRN (08:28)
[2019-10-02] MEDS: INSULIN REGULAR, HUMAN 100 UNIT/1 ML 3ML VIAL SQ SCH ×4 (08:31→21:00)
--- NOTE | 2019-10-02 19:12 | NUR ---
REPORT GIVEN TO ONCOMING NURSE, WALKING ROUNDS COMPLETE.
--- NOTE | 2019-10-02 19:15 | NUR ---
Patient received sitting up in bed. AAO x 3. No acute distress noted. Call light within reach.
[2019-10-02] MEDS: ZOLPIDEM TARTRATE 10 MG TAB PO SCH (21:12)
[2019-10-03] VITALS (7 sets, daily range): BP systolic 123–143; BP diastolic 70–98
[2019-10-03] MEDS: HYDROMORPHONE 1MG/1ML INJ IV PRN ×6 (05:40→21:16)
[2019-10-03] MEDS: LEVOFLOXACIN 500MG/D5W 100ML 100 ML IV SCH (06:31)
--- NOTE | 2019-10-03 07:00 | NUR ---
Walking rounds done. Patient resting comfortably. Bed-side report given to oncoming nurse regarding patient's status.
--- NOTE | 2019-10-03 07:15 | NUR ---
Received bedside shift report. Patient resting at this time, alert. Call light within reach.
[2019-10-03] MEDS: INSULIN REGULAR, HUMAN 100 UNIT/1 ML 3ML VIAL SQ SCH ×3 (07:30→16:30)
[2019-10-03] MEDS: FLUCONAZOLE 100 MG TAB PO SCH (08:45)
[2019-10-03] MEDS: ONDANSETRON HCL INJ 2MG/ML 2ML 2 MG/ML VIAL IV PRN ×3 (08:45→21:16)
[2019-10-03] MEDS: GLIMEPIRIDE 2 MG TAB PO SCH (08:45)
--- NOTE | 2019-10-03 08:53 | NUR ---
Dejah Glass, discharge cm - [phone]
[2019-10-03] MEDS: ALPRAZOLAM 0.25 MG TAB PO PRN (12:19)
[2019-10-03] MEDS: ZOLPIDEM TARTRATE 10 MG TAB PO SCH (21:14)
[2019-10-04] VITALS (8 sets, daily range): BP systolic 132–164; BP diastolic 80–93
[2019-10-04] MEDS: HYDROMORPHONE 1MG/1ML INJ IV PRN ×7 (00:31→20:24)
[2019-10-04] MEDS: INSULIN REGULAR, HUMAN 100 UNIT/1 ML 3ML VIAL SQ SCH ×5 (00:31→21:00)
[2019-10-04] MEDS ORDERED: KETOROLAC TROMETHAMINE 30 MG/ML VIAL IV STA (05:24)
--- NOTE | 2019-10-04 07:00 | NUR ---
BEDSIDE SHIFT REPORT FROM ASSISTANT DIRECTOR OF SECURITY RN. PT DENIES NEEDS AT THIS TIME.
[2019-10-04] MEDS: LEVOFLOXACIN 500MG/D5W 100ML 100 ML IV SCH (07:30)
[2019-10-04] MEDS: DIPHENHYDRAMINE HCL INJ 50 MG/ML VIAL IV PRN (07:30)
[2019-10-04] MEDS: GLIMEPIRIDE 2 MG TAB PO SCH (07:55)
[2019-10-04] MEDS: FLUCONAZOLE 100 MG TAB PO SCH (09:21)
[2019-10-04] MEDS: ALPRAZOLAM 0.25 MG TAB PO PRN (11:54)
[2019-10-04] MEDS: KETOROLAC TROMETHAMINE 30 MG/ML VIAL IM PRN ×2 (12:53→22:10)
[2019-10-04] MEDS: ONDANSETRON HCL INJ 2MG/ML 2ML 2 MG/ML VIAL IV PRN ×2 (13:44→20:24)
[2019-10-04] MEDS: ZOLPIDEM TARTRATE 10 MG TAB PO SCH (20:17)
[2019-10-04] MEDS: LISINOPRIL 2.5 MG TAB PO PRN (20:18)
[2019-10-04] MEDS: LOPERAMIDE HCL 2 MG CAP PO PRN (22:02)
[2019-10-05] VITALS (9 sets, daily range): BP systolic 119–181; BP diastolic 55–97
[2019-10-05] MEDS: HYDROMORPHONE 1MG/1ML INJ IV PRN ×8 (03:20→22:57)
[2019-10-05] MEDS: ALPRAZOLAM 0.25 MG TAB PO PRN ×2 (03:52→11:24)
[2019-10-05] MEDS: KETOROLAC TROMETHAMINE 30 MG/ML VIAL IM PRN ×3 (04:34→21:07)
[2019-10-05] MEDS: FUROSEMIDE 40 MG TAB PO PRN (06:37)
--- NOTE | 2019-10-05 07:25 | NUR ---
The pt. is up in the room post pain med and reports that she is pending antibiotic with benadryl to be given before the antibiotic is given. The pt. was advised that I have received report and know about how her med are to be done.
[2019-10-05] MEDS: LEVOFLOXACIN 500MG/D5W 100ML 100 ML IV SCH (08:00)
[2019-10-05] MEDS: INSULIN REGULAR, HUMAN 100 UNIT/1 ML 3ML VIAL SQ SCH ×4 (08:01→21:00)
[2019-10-05] MEDS: DIPHENHYDRAMINE HCL INJ 50 MG/ML VIAL IV PRN (08:02)
[2019-10-05] MEDS: GLIMEPIRIDE 2 MG TAB PO SCH (09:29)
[2019-10-05] MEDS: FLUCONAZOLE 100 MG TAB PO SCH (09:29)
--- NOTE | 2019-10-05 10:24 | NUR ---
CM left message for Dr. Cardozo regarding plan. Awaiting callback.
--- NOTE | 2019-10-05 11:31 | Diagnostic Imaging Report ---
EXAMINATION: CHEST XRAY LINE PLACEMENT INDICATION: Line placement COMPARISON: None FINDINGS: LINES/TUBES:Left PICC line terminates in the superior vena cava. LUNGS:The lungs are well-inflated. No focal consolidation or pulmonary edema. PLEURA:No pleural effusion or pneumothorax. MEDIASTINUM:The cardiomediastinal silhouette appears normal in size and shape. BONES/SOFT TISSUES:No acute osseous injury. ABDOMEN:No free air under the diaphragm. IMPRESSION: Left PICC line terminates in the superior vena cava. Signed by: Charo Blanco MD on 10/05/2019 11:28 AM
[2019-10-05] MEDS: ONDANSETRON HCL INJ 2MG/ML 2ML 2 MG/ML VIAL IV PRN ×2 (12:51→19:53)
--- NOTE | 2019-10-05 14:14 | NUR ---
WOUND CARE SCREENING CONSULT FOR 49 YO FEMALE ADMITTED TO [facility] WITH A PRESENT HX OF CELLULITES OF BOTH LOWER EXTREMITIES, LEUKOCYTOSIS, LUPUS, LYMPHEDEMA AND S/P FALL AT HOME. AJ 19 ON CONSERVATIVE PUP STATUS AND INTERVENTIONS SURFACE: REGULAR VISCO MATTRESS. LABS: WBC- 18.93 HGB- 13.9 MEDS: FLUCONAZOLE & LEVOFLOXACIN DEXTROSE SEE EMAR FOR DOSAGE. MICRO: BLOOD CULTURE NO GROWTH SKIN ASSESSMENT COMPLETE PATIENT PRESENTS WITH MULTIPLE HEALING BRUISES TO BILATERAL LOWER LEG EXTREMITIES AND UPPER EXTREMITIES S/P FALL. NO OPEN WOUNDS PRESENT AT THIS TIME. +2 PITTING EDEMA PRESENT TO BILATERAL LOWER EXTREMITIES; PT REFUSES TO BE TOUCHED. PT IS INSTRUCTED TO ELEVATE LEGS WHILE IN BED. PT VERBALIZES UNDERSTANDING. RECOMMENDATIONS NURSING TO CONTINUE TO MONITOR PATIENT AND KEEP SKIN CLEAN AND FREE FROM STOOL OR IRRITATING MOISTURE AND CONTINUE TO FOLLOW CONSERCATIVE PUP INTERVENTIONS DAILY. NURSING TO ENCOURAGE PT TO SELF REPOSTION IN BED NEEDED. NURSING TO CONTINUE VISCO MATTRESS. NURSING TO CONTINUE TO OFFLOAD FEET AND HEELS AT ALL TIMES WITH PILLOW SUSPENSION WHEN IN BED. NURSING TO CONTINUE MONITORING BILATERAL LOWER LEG EDEMA. NURSING TO ASSIST PT OUT OF BED FOR MEALS AND NEEDED. NURSING TO CONTINUE TO ASSIST WITH PT NUTRITIONAL SUPPLEMENTS TO ENSURE PROPER REQUIREMENTS FOR HEALING. NURSING TO RE- CONSULT WOUND CARE NEEDED. Addendum: 10/05/19 at 1416 by Sakshi Dow RN Amended: Links added.
[2019-10-05] MEDS: LOPERAMIDE HCL 2 MG CAP PO PRN (16:30)
[2019-10-05] MEDS: ZOLPIDEM TARTRATE 10 MG TAB PO SCH (21:43)
[2019-10-06] VITALS (7 sets, daily range): BP systolic 122–163; BP diastolic 59–100
[2019-10-06] MEDS: HYDROMORPHONE 1MG/1ML INJ IV PRN ×6 (02:00→21:06)
[2019-10-06] MEDS: KETOROLAC TROMETHAMINE 30 MG/ML VIAL IM PRN ×3 (03:30→20:10)
[2019-10-06] MEDS: INSULIN REGULAR, HUMAN 100 UNIT/1 ML 3ML VIAL SQ SCH ×4 (07:30→21:05)
[2019-10-06] MEDS: GLIMEPIRIDE 2 MG TAB PO SCH (08:05)
[2019-10-06] MEDS: FLUCONAZOLE 100 MG TAB PO SCH (08:05)
[2019-10-06] MEDS: LEVOFLOXACIN 500MG/D5W 100ML 100 ML IV SCH (08:05)
[2019-10-06] MEDS: ONDANSETRON HCL INJ 2MG/ML 2ML 2 MG/ML VIAL IV PRN ×3 (08:07→17:48)
--- NOTE | 2019-10-06 08:07 | Progress Note ---
DATE: SUBJECTIVE: This is a 49-year-old female with a history of lupus erythematosus, history of fall recently with cellulitis of the left lower extremity and right lower extremity. The patient also came with a fall with hematoma on the right lower extremity. Currently afebrile. No chest pain. No shortness of breath. Still complaining of pain in the lower extremity and tenderness on palpation. OBJECTIVE: VITAL SIGNS: Temperature is 98.0, T-max is 98.2, blood pressure is 156/90, pulse ox of 100% on room air. HEENT: Normocephalic, atraumatic. The patient has multiple ecchymoses throughout entire body. CVS: S1 and S2 normal. Regular rhythm. LUNGS: Clear. ABDOMEN: Soft, nontender, nondistended. EXTREMITIES: Bilateral extremities with increased erythema, increased swelling and increased warmth. The patient has right lower heel hematoma wrapping around her ankle, also edematous in the left lower extremities. LABORATORY VALUES: From the 16th, white count is 18,000, hemoglobin of 13.9. Chemistries; blood sugars have been in the 180s to 200s. MEDICATIONS: Ketorolac, hydromorphone, insulin before meals and at bedtime as needed, loperamide as needed, alprazolam as needed, glimepiride 4 mg daily, diphenhydramine, currently on Levaquin for the cellulitis with 500 mg once a day, lisinopril 2.5 mg and sertraline. The patient is also getting acetaminophen as needed and cyclobenzaprine. ASSESSMENT: Ms. Pratibha Raza with: 1. Cellulitis of the lower extremity. Continue with Levaquin. All the risks and benefits have been explained to the patient including tendinitis and tendon ruptures, which has been associated with quinolones. The patient does still continue. 2. Lupus erythematosus. Continue monitoring kidney functions. 3. Generalized debility. 4. Hypertension. 5. Uncontrolled diabetes mellitus. PLAN: Continue with Levaquin. Monitor kidney functions today. Further recommendation per clinical course. We will continue to monitor the patient and possible discharge on Tuesday when Dr. Cardozo comes back. MD TIKA Mills/MODЮлия /[id number]
--- NOTE | 2019-10-06 08:24 | NUR ---
The pt. was awakened for morning meds and requests pain and nausea med.
--- NOTE | 2019-10-06 12:21 | NUR ---
Nutrition Screen Note RD Recommendation for Physician: Continue diet as ordered Plan of Care: RD following monitoring for tolerance and adequacy Nutrition reason for involvement: LOS Primary Diagnose(s): Cellulitis of bilateral lower extremities PMH: lupus, HTN, Ht:64 in Wt:172.56 lbs BMI:29.6 kg/m2 IBW:[address] Assessment: Initial encounter with patient. Pt is known from a previous admit. Pt has allergies to fish/shellfish. Pt is eating well and denies any diarrhea. Pt is reporting occasional nausea and has some biting chewing difficulty due to some missing teeth. Pt does not desire a texture modification at this time. Pt states that nutrition services staff have been very helpful to her. Current Diet: Cardiac Malnutrition Evaluation (10/06/2019) The patient does not meet criteria for a specified degree of malnutrition at this time. Will re-evaluate at follow-up as appropriate. Diet Education Needs Assessment: Diet education not indicated at this time. Diet tolerance: Tolerating current diet Nutrition Care Level: lavell Del Castillo RD, LD, CNSC
[2019-10-06] MEDS: FUROSEMIDE 40 MG TAB PO PRN (17:48)
[2019-10-06] MEDS: ALPRAZOLAM 0.25 MG TAB PO PRN (20:10)
[2019-10-06] MEDS: ZOLPIDEM TARTRATE 10 MG TAB PO SCH (21:04)
[2019-10-07] VITALS (9 sets, daily range): BP systolic 114–181; BP diastolic 60–98
[2019-10-07] MEDS: HYDROMORPHONE 1MG/1ML INJ IV PRN ×8 (00:11→22:15)
[2019-10-07] MEDS: ONDANSETRON HCL INJ 2MG/ML 2ML 2 MG/ML VIAL IV PRN ×4 (00:11→19:09)
[2019-10-07] MEDS: KETOROLAC TROMETHAMINE 30 MG/ML VIAL IM PRN ×3 (02:20→16:12)
[2019-10-07 06:09] LABS: BASOPHILS # (AUTO) 0.1 (0.0-0.1); BASOPHILS % 0.6 % (0.0-1.0); EOSINOPHILS # (AUTO) 0.1 (0.0-0.4); EOSINOPHILS % 0.3 % (0.0-6.0); HEMATOCRIT 38.4 % (34.2-44.1); HEMOGLOBIN 12.8 g/dL (12.0-16.0); LYMPHOCYTES # (AUTO) 2.8 (1.0-3.2); LYMPHOCYTES % 15.6 % (18.0-39.1); MEAN CORPUSCULAR HEMOGLOBIN 32.6 pg (28-32); MEAN CORPUSCULAR HGB CONC 33.3 g/dL (31-35); MEAN CORPUSCULAR VOLUME 97.7 fL (81-99); MONOCYTES # (AUTO) 1.3 (0.2-0.8); MONOCYTES % 7.1 % (4.4-11.3); NEUTROPHILS # (AUTO) 13.1 (2.1-6.9); NEUTROPHILS % 73.2 % (38.7-80.0); PLATELET COUNT 338 x10e3/uL (140-360); RED BLOOD COUNT 3.93 x10e6/uL (3.6-5.1); RED CELL DISTRIBUTION WIDTH 13.7 % (11.7-14.4)
[2019-10-07 06:46] LABS: ANION GAP 14.3 mmol/L (8-16); CALCIUM 8.9 mg/dL (8.4-10.2); CREATININE, SERUM 0.99 mg/dL (0.57-1.11); POTASSIUM 4.3 mmol/L (3.5-5.1)
[2019-10-07] MEDS: INSULIN REGULAR, HUMAN 100 UNIT/1 ML 3ML VIAL SQ SCH ×4 (08:09→20:34)
[2019-10-07] MEDS: LISINOPRIL 2.5 MG TAB PO PRN (08:48)
[2019-10-07] MEDS: FLUCONAZOLE 100 MG TAB PO SCH (08:49)
[2019-10-07] MEDS: GLIMEPIRIDE 2 MG TAB PO SCH (08:49)
[2019-10-07] MEDS: ALPRAZOLAM 0.25 MG TAB PO PRN ×2 (08:49→20:37)
[2019-10-07] MEDS: DIPHENHYDRAMINE HCL INJ 50 MG/ML VIAL IV PRN (08:58)
[2019-10-07] MEDS: LEVOFLOXACIN 500MG/D5W 100ML 100 ML IV SCH (09:05)
--- NOTE | 2019-10-07 09:31 | Progress Note ---
DATE: SUBJECTIVE: The patient is a 49-year-old female, who came with cellulitis of the bilateral lower extremities and hematoma of the right lower extremity. The patient continues to be in pain, continues to have warmth and tenderness to the lower extremities. No chest pains. No shortness of breath. Medication list reviewed. The patient continues to take Dilaudid every 3 hours. OBJECTIVE: VITAL SIGNS: Temperature is 97.5, T-max of 98.4, respirations of 20, pulse is 88, blood pressure is 122/79, and pulse oximetry of 99%. HEENT: Normocephalic and atraumatic. CVS: S1 and S2 normal. Regular rate and rhythm. ABDOMEN: Soft, nontender, and nondistended. EXTREMITIES: No clubbing. No cyanosis. Positive for bilateral lower extremity edema. Positive for hematomas. Positive for erythema extending up all the way about the calves, almost to the knees and bilateral side, right-sided hematoma compressed. LABORATORY VALUES: Today's white count is 17,000, hemoglobin of 12.8, and hematocrit of 38.4. Chemistries are pending. Serology; coronavirus nondetected. ASSESSMENT: Ms. Pratibha Raza with: 1. Cellulitis of the lower extremities. Plan, continue IV Levaquin. Risks and benefits of tendon rupture given to the patient. 2. Leukocytosis. The patient's numbers are trending up. 3. Kidney functions. We will go ahead and check it after the labs come today. 4. Generalized debility. 5. Lupus erythematosus. 6. Uncontrolled diabetes mellitus. PLAN: Continue with current regimen. Discharge planning depending on progression and also trending the leukocytosis. MD HA MillsJ/MODL /[id number]
[2019-10-07] MEDS: FUROSEMIDE 40 MG TAB PO PRN (09:57)
[2019-10-07] MEDS: ATENOLOL 50 MG TAB PO SCH (15:59)
[2019-10-07] MEDS: LOPERAMIDE HCL 2 MG CAP PO PRN (16:00)
[2019-10-07] MEDS: ZOLPIDEM TARTRATE 10 MG TAB PO SCH (20:32)
[2019-10-08] VITALS: BP 148/79
[2019-10-08] MEDS: ONDANSETRON HCL INJ 2MG/ML 2ML 2 MG/ML VIAL IV PRN ×2 (01:30→07:34)
[2019-10-08] MEDS: HYDROMORPHONE 1MG/1ML INJ IV PRN ×2 (01:30→04:38)
[2019-10-08 04:00] VITALS: BP 103/67
[2019-10-08] MEDS: ALPRAZOLAM 0.25 MG TAB PO PRN ×2 (04:43→10:01)
--- NOTE | 2019-10-08 06:30 | Discharge Summary ---
DISCHARGE DIAGNOSES: 1. Cellulitis of the lower extremities. 2. Diabetes. 3. Hypertension. 4. Lupus. 5. Leukocytosis. HISTORY OF PRESENT ILLNESS AND HOSPITAL COURSE: See hospital chart for full details. The patient is a lady, who has history of chronic lymphedema and lupus, who presented with a flare of her lupus and lymphedema after some trauma to the lower extremities where she had an increase in her lymphedema which caused secondary cellulitis of the bilateral lower extremities. She was brought and placed on IV antibiotics and IV pain medication, which slowly and daily she improved at the time of discharge. She was able to be discharged home with p.o. Levaquin. First she used IV Levaquin in the hospitalization without any issues. Leukocytosis remained stable at 17,000. She will be discharged home, continue home medication as well as Levaquin and follow up with me in 1 to 2 weeks and she was told that COVID-19 is negative during hospitalization. Please see hospital chart for full details. MD SHARATH Sin/EDVIN /[id number]
--- NOTE | 2019-10-08 07:05 | NUR ---
Received patient lying in bed with eyes open. Respiration even and unlabored without SOB. Left upper PICC in placed, intact with no s/s of infection. Call light in reach.
[2019-10-08] MEDS: LEVOFLOXACIN 500MG/D5W 100ML 100 ML IV SCH (07:32)
[2019-10-08] MEDS: FLUCONAZOLE 100 MG TAB PO SCH (07:33)
[2019-10-08] MEDS: GLIMEPIRIDE 2 MG TAB PO SCH (07:33)
[2019-10-08 07:45] VITALS: BP 140/87
[2019-10-08] MEDS: ATENOLOL 50 MG TAB PO SCH (07:48)
[2019-10-08] MEDS: INSULIN REGULAR, HUMAN 100 UNIT/1 ML 3ML VIAL SQ SCH (07:49)
[2019-10-08] MEDS: FUROSEMIDE 40 MG TAB PO PRN (07:53)
[2019-10-08] MEDS: DIPHENHYDRAMINE HCL INJ 50 MG/ML VIAL IV PRN (08:15)
[2019-10-08 09:03] VITALS: BP 140/87
--- NOTE | 2019-10-08 10:15 | NUR ---
Discharge education about follow-up appointment in 1-[address] Cardozo and oral antibiotic as prescribed. Verbalized understanding. Left upper PICC line discontinued with 47 mm long catheter intact, pressured applied for 10 minutes, occlusive dressing applied. Patient is advised to remove the dressing in 24 hours and if bleeding noted, apply direct pressure and if bleeding does not stop to call emergency assistance. Verbalized understanding.
--- NOTE | 2019-10-08 10:55 | NUR ---
Patient is transported via wheelchair to private vehicle with all personal belongings taken. Discharge packet is given. Respiration even and unlabored without SOB.
--- OUTSIDE RECORDS SUMMARY | 2019-11-15 19:04 | XMS REPORT | Continuity of Care Document ---
Author Author [facility] Organization [facility] Address [address] [place] [address] Phone Unavailable Care Team Providers Care Hem Marker Name Role Phone SOLANGE SORIA, MD ZURITA PCP PARMINDER NARVAEZ Attphys Unavailable DARBYESTER Attphys Unavailable BERNA, S AMBICA Attphys Unavailable SWEET, A LAIRD Attphys Unavailable PARMINDER NARVAEZ Admphys Unavailable Payers Payer Name Policy Type Policy Number Effective Date Expiration Date Kiko Marin [facility] [id number] 2011 00:00:00 [facility] Problems Condition Name Condition Details Condition Category Status Onset Date Resolution Date Last Treatment Date Treating Clinician Comments Source Chronic bronchitis Chronic bronchitis Problem Active 2014-07-02 00:00:0 0 [facility] Candidiasis of mouth and esophagus Thrush of mouth and esophagus Pr oblem Active 2014-07-02 00:00:00 [facility] Cellulitis Cellulitis Problem Active [facility] Edema of foot Pedal edema Problem Active [facility] Cellulitis and abscess of foot excluding toe Celluliti s and abscess of foot, except toes Problem Active [facility] Hypokalemia Hypokalemia Problem Active [facility] Edema Edema Problem Active [facility] Leukocytosis Elevated WBC count Problem Active [facility] Lupus erythematosus Lupus Problem Active [facility] Fall Fall Problem Active [facility] Laceration of left forearm Laceration of left forearm Problem Active [facility] Severe sepsis Severe sepsis Problem Active [facility] Urinary tract infection UTI (urinary tract infection) Problem Active [facility] Laceration of right knee Problem Active [facility] Cellulitis of both lower extremities Problem Active [facility] Allergies, Adverse Reactions, Alerts Allergy Name Allergy Type Status Severity Reaction(s) Onset Date Inacti ve Date Treating Clinician Comments Source Meropenem Propensity to adverse reactions Active hives 2018-0 8-03 00:00:00 [facility] Cefepime Allergy to substance Active 2018-11-17 00:00:00 [facility] Linezolid Allergy to substance Active Moderate 2018-04-11 00:00:00 [facility] Fish Containing Products Allergy to substance Active Severe 2018-04-09 00:00:00 [facility] Iodine Allergy to substance Active 2018-04-09 00:00:00 [facility] Neomycin Allergy to substance Active Moderate causes skin to get crusty and yellow 2018-04-09 00:00:00 [facility] Bacitracin Allergy to substance Active Moderate causes skin to get yellow and crusty 2018-04-09 00:00:00 [facility] Vancomycin Allergy to substance Active Severe honey symdrome ? 2018-04-09 00:00:00 [facility] Polymyxin b Allergy to substance Active Moderate causes skin to get crusty and yellow 2018-04-09 00:00:00 [facility] shellfish derived Allergy to substance Active Severe 2018-03-19 3 00:00:00 [facility] CHITOSAN Allergy to substance Active 2016-07-06 00:00:00 [facility] Social History Social Habit Start Date Stop Date Quantity Comments Source Sex Assigned At 1970 00:00:00 1970 00:00:00 Female [facility] Medications Ordered Medication Name Filled Medication Name Start Date Stop Da te Current Medication? Ordering Clinician Indication Dosage Frequency Signature (SIG) Comments Components Source Albuterol Sulfate (Ventolin Hfa) 18 Gm HFA.AER.AD Albu terol Sulfate (Ventolin Hfa) 18 Gm HFA.AER.AD Yes Every 4 Hours as needed for Allergy [facility] Alprazolam Alprazolam Yes .25 Three Time s A Day as needed for Anxiety [facility] Atenolol Atenolol Yes 25 Twice A Day [facility] Cyclobenzaprine Hcl Cyclobenzaprine Hcl Yes 10 Three Times A Day as needed for Muscle Spasms [facility] Epinephrine Epinephrine Yes C HI [facility] Furosemide Furosemide Yes 40 Daily as needed fo r Swelling [facility] Glimepiride Glimepiride Yes 4 Daily [facility] Hydrocodone Bit/Acetaminophen (Hydrocodon-Acetaminophn 10-325) 1 Each TABLET Hydrocodone Bit/Acetaminophen (Hydrocodon-Acetaminophn 10-325) 1 Each TABLET Yes 1 Every 8 Hours as needed for Mode rate Pain (4-6) [facility] Lisinopril Lisinopril Yes 2.5 Daily as needed fo r Blood Pressure [facility] Promethazine Hcl Promethazine Hcl Yes 25 Q 6 H Prn [facility] Santyl Santyl Yes 1 Daily [facility] Sertraline Hcl Sertraline Hcl Yes 50 Da justen as needed for Agitation [facility] Zolpidem Tartrate Zolpidem Tartrate Yes 10 Bedt omega [facility] Blood Sugar Diagnostic (One Touch Ultra Test Strips) 1 Each STRIP Blood Sugar Diagnostic (One Touch Ultra Test Strips) 1 Each STRIP 2019-02-07 00:00:00 No [facility] Carisoprodol (Soma) 350 Mg TABLET Carisoprodol (Soma) 350 Mg TAB LET 2018-11-18 00:00:00 No 350 Q8hrs [facility] Cephalexin Cephalexin 2018-11-18 00:00:00 No 750 Thr ee Times A Day [facility] Cephalexin Monohydrate (Keflex) 750 Mg CAPSULE Cephale isma Monohydrate (Keflex) 750 Mg CAPSULE 2018-11-18 00:00:00 No 1000 Every 8 H ours [facility] Ciprofloxacin Hcl (Cipro) 500 Mg TABLET Ciprofloxacin Hcl (C ipro) 500 Mg TABLET 2018-11-18 00:00:00 No 500 Twice A Day [facility] Doxycycline Hyclate Doxycycline Hyclate 2018-11-18 00:00:00 No 100 Every 12 Hours [facility] Doxycycline Hyclate Doxycycline Hyclate 2018-11-18 00:00:00 No 100 Twice A Day [facility] Hydrochlorothiazide Hydrochlorothiazide 2018-11-18 00:00:00 No 50 Daily [facility] Hydrocodone Bit/Acetaminophen (Vicodin Es 7.5-750 Mg T ablet) 1 Each TABLET Hydrocodone Bit/Acetaminophen (Vicodin Es 7.5-750 Mg Tablet) 1 Each TABLET 2018-11-18 00:00:00 No Q6hrs [facility] Metronidazole (Flagyl) 250 Mg TABLET Metronidazole (Flagyl) 250 Mg TABLET 2018-11-18 00:00:00 No 500 Every 8 Hours [facility] Lactulose Lactulose 2017-10-12 00:00:00 No 30 Every 8 Hours as needed for Constipation [facility] Sennosides/Docusate Sodium (Senna Laxative Tablet) 1 E ach TABLET Sennosides/Docusate Sodium (Senna Laxative Tablet) 1 Each TABLET 2017-10-12 00:00:00 No 1 Twice A Day [facility] Triamcinolone Acetonide (Kenalog-10) 10 Mg/1 Ml VIAL T riamcinolone Acetonide (Kenalog-10) 10 Mg/1 Ml VIAL 2012-10-16 00:00:00 No 1 Q6-8WEEKS [facility] Vital Signs Vital Name Observation Time Observation Value Comments Source Body Temperature 2019-10-08 09:03:00 98.7 [degF] [facility] Weight 2019-10-07 00:47:00 175.50 [lb_av] [facility] BMI (Body Mass Index) 2019-10-07 00:47:00 30.1 kg/m2 [facility] Procedures Procedure Date / Time Performed Performing Clinician Selena garcia Computed tomography of brain without radiopaque contrast 2019-09 00:00:00 [facility] Computed tomography of brain without radiopaque contrast 201 12-28-03 00:00:00 FUNMILAYO CALLOWAY [facility] Computed tomography of cervical spine without contrast 02-19 00:00:00 FUNMILAYO CALLOWAY [facility] CT of abdomen and pelvis without contrast 2019-02-19 00:00:00 [facility] X-ray of chest, two views 2019-01-27 00:00:00 SHEY EWING [facility] CT of abdomen and pelvis without contrast 2019-01-27 00:00:00 [facility] Plan of Care Planned Activity Planned Date Details Comments Source Instructions Cellulitis [facility] Instructions Diabetes and Diet [facility] Encounters Start Date/Time End Date/Time Encounter Type Admission Type Attendi [facility] Care Department Encounter ID Source 2019-02-19 04:25:00 2019-02-26 09:53:00 Discharged Inpatient 1 SOLANGE, PARMINDER [facility] [id number] [facility] 2019-02-07 17:41:00 2019-02-13 13:55:00 Discharged Inpatient 1 ESTER PASTOR [facility] [id number] [facility] 2019-01-27 11:45:00 2019-01-29 10:43:00 Discharged Inpatient (obs) 1 SHEY CORONEL [facility] [id number] [facility] 2018-11-17 19:27:00 2018-11-29 14:08:00 Discharged Inpatient 1 PARMINDER NARVAEZ [facility] [id number] [facility] 2018-04-09 16:03:00 2018-04-16 11:03:00 Discharged Inpatient 1 PARMINDER NARVAEZ [facility] [id number] [facility] 2017-10-08 06:02:00 2017-10-13 06:19:00 Discharged Inpatient 1 ALAN NAJERA [facility] [id number] [facility] Results Test Description Test Time Test Comments Results Result Comments Source Capillary blood glucose measurement by glucometer (mas s/volume) 2019-10-08 07:07:00 Test Item Bedside Glucose (test code = 20373-2) 181 70-120 Meter ID: [id number] leukocytes automated count (number/volume)2019-10-07 05:15:00* Test Item Value Reference Range Interpretation Comments White Blood Count (test code = 6690-2) 17.93 4.8-10.8 [facility] erythrocytes automated count (number/volume)2019-10-07 05:15:00* Test Item Value Reference Range Interpretation Comments Red Blood Count (test code = 789-8) 3.93 3.6-5.1 [facility] hemoglobin measurement (moles/volume)2019-10-07 05:15:00* Test Item Value Reference Range Interpretation Comments Hemoglobin (test code = 04348-1) 12.8 12.0-16.0 [facility] HospitalAutomated blood hematocrit (volume fraction)2019-10-07 05:15:00* Test Item Value Reference Range Interpretation Comments Hematocrit (test code = 4544-3) 38.4 34.2-44.1 [facility] HospitalAutomated erythrocyte mean corpuscular gxeqqh9958-50-59 05:15:00* Test Item Value Reference Range Interpretation Comments Mean Corpuscular Volume (test code = 787-2) 97.7 81-99 [facility] erythrocyte mean corpuscular hemoglobin (mass per erythrocyte)2019-10-07 05:15:00* Test Item Value Reference Range Interpretation Comments Mean Corpuscular Hemoglobin (test code = 785-6) 32.6 28-32 [facility] HospitalAutom[facility] erythrocyte mean corpuscular hemoglobin concentration measurement (mass/volume)2019-10-07 05:15:00* Test Item Value Reference Range Interpretation Comments Mean Corpuscular Hemoglobin Concent (test code = 786-4) 33.3 31-35 [facility] HospitalRDW XnsXn-Tjy2933-01-21 05:15:00* Test Item Value Reference Range Interpretation Comments Red Cell Distribution Width (test code = 18367-2) 13.7 11.7 -14.4 [facility] Hospital[facility] blood platelet count (count/volume)2019-10-07 05:15:00* Test Item Value Reference Range Interpretation Comments Platelet Count (test code = 777-3) 338 140-360 [facility] HospitalAutom[facility] blood segmented neutrophil count as percentage of total scrmlinscd4234-72-16 05:15:00* Test Item Value Reference Range Interpretation Comments Neutrophils (%) (Auto) (test code = 41448-4) 73.2 38.7-80.0 [facility] HospitalAutom[facility] blood lymphocyte count as percentage ot total ehbexvutyt1209-48-80 05:15:00* Test Item Value Reference Range Interpretation Comments Lymphocytes (%) (Auto) (test code = 736-9) 15.6 18.0-39.1 [facility] HospitalAutom[facility] blood monocyte count as percentage of total mwvvnmauxm2061-16-79 05:15:00* Test Item Value Reference Range Interpretation Comments Monocytes (%) (Auto) (test code = 5905-5) 7.1 4.4-11.3 [facility] HospitalAutomated blood eosinophil count as percentage of total tihneiwfdg5576-76-08 05:15:00* Test Item Value Reference Range Interpretation Comments Eosinophils (%) (Auto) (test code = 713-8) 0.3 0.0-6.0 [facility] HospitalAutomated blood basophil count as percentage of total zoywqnamxd7963-16-06 05:15:00* Test Item Value Reference Range Interpretation Comments Basophils (%) (Auto) (test code = 706-2) 0.6 0.0-1.0 [facility] HospitalFluoroscopic procedure less than one hour vierpslo1173-07-75 05:15:00* Test Item Value Reference Range Interpretation Comments IM GRANULOCYTES % (test code = IM GRANULOCYTES %) 3.2 0.0- 1.0 [facility] HospitalAutomated blood neutrophil count 2019-10-07 05:15:00* Test Item Value Reference Range Interpretation Comments Neutrophils # (Auto) (test code = 751-8) 13.1 2.1-6.9 [facility] HospitalBlood lymphocytes count (number/volume) 2019-10-07 05:15:00* Test Item Value Reference Range Interpretation Comments Lymphocytes # (Auto) (test code = 03547-9) 2.8 1.0-3.2 [facility]Bl[facility] monocytes automated count (number/volume)2019-10-07 05:15:00* Test Item Value Reference Range Interpretation Comments Monocytes # (Auto) (test code = 742-7) 1.3 0.2-0.8 [facility] HospitalAutomated blood eosinophil count 2019-10-07 05:15:00* Test Item Value Reference Range Interpretation Comments Eosinophils # (Auto) (test code = 711-2) 0.1 0.0-0.4 [facility] HospitalAutomated blood basophil count (count/volume)2019-10-07 05:15:00* Test Item Value Reference Range Interpretation Comments Basophils # (Auto) (test code = 704-7) 0.1 0.0-0.1 [facility] HospitalFluoroscopic procedure less than one hour lvdtgnaw3470-94-97 05:15:00* Test Item Value Reference Range Interpretation Comments Absolute Immature Granulocyte (auto (anita t code = Absolute Immature Granulocyte (auto) 0.57 0-0.1 [facility] sodium measurement (moles/volume)2019-10-07 05:15:00* Test Item Value Reference Range Interpretation Comments Sodium Level (test code = 2951-2) 136 136-145 [facility] potassium measurement (moles/volume)2019-10-07 05:15:00* Test Item Value Reference Range Interpretation Comments Potassium Level (test code = 2823-3) 4.3 3.5-5.1 [facility] chloride measurement (moles/volume)2019-10-07 05:15:00* Test Item Value Reference Range Interpretation Comments Chloride Level (test code = 2075-0) 101 98-107 [facility] or plasma carbon dioxide, total measurement (moles/volume)2019-10-07 05:15:00* Test Item Value Reference Range Interpretation Comments Carbon Dioxide Level (test code = 2028-9) 25 22-29 [facility] or plasma anion nke8379-44-22 05:15:00* Test Item Value Reference Range Interpretation Comments Anion Gap (test code = 53936-9) 14.3 8-16 [facility] plasma urea nitrogen measurement (mass/volume)2019-10-07 05:15:00* Test Item Value Reference Range Interpretation Comments Blood Urea Nitrogen (test code = 3094-0) 22 7-26 [facility] or plasma creatinine measurement (mass/volume)2019-10-07 05:15:00* Test Item Value Reference Range Interpretation Comments Creatinine (test code = 2160-0) 0.99 0.57-1.11 [facility]ere[facility] or plasma urea nitrogen/creatinine mass ahmox3125-32-82 05:15:00* Test Item Value Reference Range Interpretation Comments BUN/Creatinine Ratio (test code = 3097-3) 22 6-25 [facility] HospitalEstimated glomerular filtration rate (GFR) vogxiobxelvja8026-61-61 05:15:00* Test Item Value Reference Range Interpretation Comments Estimat Glomerular Filtration Rate (test code = 924370637) 60 >60 Ranges were taken from the National Kidney Disease Education Program and the [place] on license of [facility] [employer] [employer] literature.Reference ranges:60 or greater: Zmjhus68-27 ( for 3 consecutive months): Chronic kidney disease 15 or less: Kidney failureMethodist Stone Oak HospitalGlucose noenljeguyf5200-28-55 05:15:00* Test Item Value Reference Range Interpretation Comments Glucose Level (test code = XRI9118) 227 74-118 [facility]ere[facility] or plasma calcium measurement (mass/volume)2019-10-07 05:15:00* Test Item Value Reference Range Interpretation Comments Calcium Level (test code = 97758-2) 8.9 8.4-10.2 [facility] HospitalCHEST XRAY LINE XMIFXKEZZ3117-98-59 11:27:00 [facility] [address] [address] Patient Name: ROSA ISELA BENITEZ MR #: [id number] : 1970 Age/Sex: 49/F Req #: [id number] Adm Physician: PARMINDER NARVAEZ MD Ordered by: PARMINDER NARVAEZ MD Report #: [id number] Location: [facility] Room/Bed: [facility] Procedure: [id number] DX/CHEST X RAY LINE PLACEMENT Exam Date: 10/05/19 Exam Time: 03 12 REPORT STATUS: Signed EXAMINA TION: CHEST XRAY LINE PLACEMENT INDICATION: Line placement COMPAR GEOFFREY: None FINDINGS: LINES/TUBES:Left PICC line terminates in the superior vena cava. LUNGS:The lungs are well-inflated. No focal consolidat ion or pulmonary edema. PLEURA:No pleural effusion or pneumothorax. ME DIASTINUM:The cardiomediastinal silhouette appears normal in size and shape. BONES/SOFT TISSUES:No acute osseous injury. ABDOMEN:No free air under the diaphragm. IMPRESSION: Left PICC line terminates in the superior gm a cava. Signed by: Dipak Talbot MD on 10/05/2019 11:28 AM Dictated By: DIPAK TALBOT MD 27 Transc ribed By: BRENDON on 10/05/191127 COPY TO: PARMINDER NARVAEZ MD Serum or plasma total bilirubin measurement (mass/volume)2019-10-02 05:00:00* Test Item Value Reference Range Interpretation Comments Total Bilirubin (test code = 1975-2) 0.4 0.2-1.2 [facility] HospitalFluoroscopic procedure less than one hour ccairglr0533-83-76 05:00:00* Test Item Value Reference Range Interpretation Comments Aspartate Amino Transf (AST/SGOT) (test code = Aspartate Amino Transf (AST/SGOT)) 30 5-34 [facility]ere[facility] or plasma alanine aminotransferase measurement (enzymatic activity/volume)2019-10-02 05:00:00* Test Item Value Reference Range Interpretation Comments Alanine Aminotransferase (ALT/SGPT) (test code = 1742-6) 59 0-55 [facility]ere[facility] or plasma protein measurement (mass/volume)2019-10-02 05:00:00* Test Item Value Reference Range Interpretation Comments Total Protein (test code = 2885-2) 6.4 6.5-8.1 [facility]ere[facility] or plasma albumin measurement (mass/volume)2019-10-02 05:00:00* Test Item Value Reference Range Interpretation Comments Albumin (test code = 1751-7) 3.0 3.5-5.0 [facility] HospitalPlasma globulin measurement (mass/volume) 2019-10-02 05:00:00* Test Item Value Reference Range Interpretation Comments Globulin (test code = 67023-8) 3.4 2.3-3.5 [facility] or plasma albumin/globulin mass rfqek2446-49-06 05:00:00* Test Item Value Reference Range Interpretation Comments Albumin/Globulin Ratio (test code = 1759-0) 0.9 0.8-2.0 [facility]ere[facility] or plasma alkaline phosphatase measurement (enzymatic activity/volume)2019-10-02 05:00:00* Test Item Value Reference Range Interpretation Comments Alkaline Phosphatase (test code = 6768-6) 101 40-[address] [facility] procedure less than one hour snstyntt4417-55-13 09:09:00* Test Item Value Reference Range Interpretation Comments Coronavirus (PCR) (test code = Coronavirus (PCR)) NOT DETECTED NOTD ETECTED SARS-COV-2 (COVID19), HIGHRISK, RT-PCRNegative results do not preclude SARS-CoV- 2 infection and should not be used as the sole basis for patient management deci sions. Negative results must be combined with clinical observations, patient his tory, and epidemiological information. Optimum specimen types and timing for pea k viral levels during infections caused by SARS-CoV-2 have not been determined. Collection of multiple specimens ot types of specimens may be necessary to detec t virus. Improper specimen collection and handling, sequence variability under p rimers/probes, or organism present below the limit of detection may lead to fals e negative results. Positive and negative predictive values of testing are highl y dependent on prevalance. False negative test results are more likely when prev alence is high.The expected result is negative (not detected).The SARS-CoV-2 anita t is intended for the qualitative detection of nucleic acid from SARS-CoV-2 in n asopharyngeal and oropharyngeal swab samples from patients who meet COVID-19 cli nical and or epidemiological criteria. For lower respiratory tract specimens, th e assay is submitted for authoriztion by FDA under an Emergency Use Authorizatio n (EUA). Testing methodology is real time RT-PCR. If received as separate collec tion devices, nasopharygeal and oropharyngeal specimens are combined for analysi s. Additional specimens may be split to a separate accession for analysi and rep orting as this test includes a single unit of service.Test results must be corre lated with clinical presentation and evaluated in the context of other laborator y and epidemiologic data. Test performance can be affected because the epidemiol ogy and clinical spectrum of infection caused by SARS-CoV-2 is not fully known. For example, the optimum types of specimens to collect and when during the cours e of infection these specimens are most likely to contain detectable viral RNA m ay not be known.This test has not been Food and Drug Administration (FDA) cleare d or approved and has been authorized by FDA under an Emergency Use Authorizatio n (EUA). The test is only authorized for the duration of the declaration that ci rcumstances exist justifying the authorization of emergency use of in vitro diag nostic tests for detection and/or diagnosis of SARS-CoV-2 under section 564(b) o f the Act, 21 U.S.C. section 360bbb-3(b)(1), unless the authorization is termina emelina or revoked sooner. [facility] are certified under the C linical Laboratory Improvement Amendments of 1988 (CLIA), 42 U.S.C. section 263a , to perform high complexity tests.Testing performed by [facility] [id number] [place], [place] [phone] Director: Jered Escobedo M.D.CLIA # [id number] [facility] ltvckvj2634-01-65 07:55:00* Test Item Value Reference Range Interpretation Comments Blood Culture (test code = 17734607) NO GROWTH AFTER 5 DAYS, FINAL REPORT [facility]wallCT BRAIN [id number] 06:53:00 [address] [address] Patient Name: ROSA ISELA BENITEZ MR #: [id number] : 1970 Age/Sex: 49/F Req #: [id number] Adm Physician: PARMINDER NARVAEZ MD Ordered by: FUNMILAYO CALLOWAY MD Report #: [id number] [facility]: [facility] Room/Bed: [address] [address] Procedure: [id number] CT /CT BRAIN WO Exam Date: 10/01/19 Exam Time: 0630 REPORT STATUS: Signed History: Head injury Comparison studies: None Technique: Axial images were obtained from the skull base to the vertex. Coronal and sagittal reconstructions obt ained from the axial data. Dose modulation, iterative reconstruction, and/or w eight based adjustment of the mA/kV was utilized to reduce the radiation dose to as low as reasonably achievable. Findings: Scalp/skull: No abn ormalities. No fractures, blastic or lytic lesions. Extra-axial spaces: No masses. No fluid collections. Brain sulci: Appropriate for age. Ventr icles: Normal in size and configuration. No hydrocephalus. Parenchyma: N o abnormal densities. No masses, hemorrhage, acute or chronic cortical vascul ar insults. Sellar/suprasellar region: No abnormalities Craniocervical ju nction: Patent foramen magnum. No Chiari one malformation. IMPRESSION: No abnormalities . Signed by: DR Walt Horan M.D. on 10/01/2019 7:09 AM Dictated By: WALT WHITLEY MD 8 Transcribed By: BRENDON on 10/01/19708 COPY TO: FUNMILAYO CALLOWAY MD Fluoroscopic procedure less than one hour xpuinozm2223-93-33 05:50:00* Test Item Value Reference Range Interpretation Comments Differential Total Cells Counted (test code = Differgeoff tial Total Cells Counted) 100 [facility] blood neutrophils/100 leukocytes 2019-10-01 05:50:00* Test Item Value Reference Range Interpretation Comments Neutrophils % (Manual) (test code = 69917-9) 70 40-74 [facility] blood lymphocytes/100 leukocytes 2019-10-01 05:50:00* Test Item Value Reference Range Interpretation Comments Lymphocytes % (Manual) (test code = 737-7) 20 19-48 [facility] blood monocytes/100 leukocytes 2019-10-01 05:50:00* Test Item Value Reference Range Interpretation Comments Monocytes % (Manual) (test code = 744-3) 9 3.4-9.0 [facility] blood eosinophil count as percentage of total yltqrlorep9679-80-70 05:50:00* Test Item Value Reference Range Interpretation Comments Eosinophils % (Manual) (test code = 714-6) 1 0-7 [facility] platelets count by estimate (number/volume)2019-10-01 05:50:00* Test Item Value Reference Range Interpretation Comments Platelet Estimate (test code = 61708-9) ADEQUATE [facility] HospitalPlatelet ohvrpvbhac6984-90-53 05:50:00* Test Item Value Reference Range Interpretation Comments Platelet Morphology Comment (test code = 53980-0) NORMAL [facility] HospitalBlood hypochromia detection by light cyrdqovegf0826-58-60 05:50:00* Test Item Value Reference Range Interpretation Comments Hypochromasia (test code = 728-6) SLIGHT [facility] HospitalRBC ggtonguvbi8103-89-55 05:50:00* Test Item Value Reference Range Interpretation Comments Red Cell Morphology Comment (test code = 6742-1) NORMAL [facility] HospitalUrine color mqhpykcxgdvzz3531-50-18 05:50:00* Test Item Value Reference Range Interpretation Comments Urine Color (test code = 5778-6) YELLOW YELLOW [facility] HospitalUrine fwjbrts8964-00-90 05:50:00* Test Item Value Reference Range Interpretation Comments Urine Clarity (test code = 07882-0) CLEAR CLEAR [facility] gravity [facility] Urine by Test strip 2019-10-01 05:50:00* Test Item Value Reference Range Interpretation Comments Urine Specific [place] (test code = 5811-5) 1.020 1.010-1.02 5 [facility] HospitalUrine pH measurement by automated test ikmze7413-90-93 05:50:00* Test Item Value Reference Range Interpretation Comments Urine pH (test code = 91980-6) 6 5-7 [facility] HospitalUrine leukocyte esterase detection by olabakaj2276-28-04 05:50:00* Test Item Value Reference Range Interpretation Comments Urine Leukocyte Esterase (test code = 5799-2) NEGATIVE NEGATIVE [facility] HospitalUrine nitrite hppblrstl7566-32-90 05:50:00* Test Item Value Reference Range Interpretation Comments Urine Nitrite (test code = 00868-9) NEGATIVE NEGATIVE [facility] HospitalUrine protein measurement by test strip (mass/volume)2019-10-01 05:50:00* Test Item Value Reference Range Interpretation Comments Urine Protein (test code = 5804-0) NEGATIVE NEGATIVE [facility] HospitalUrine glucose rfzvggmcj9065-72-84 05:50:00* Test Item Value Reference Range Interpretation Comments Urine Glucose (UA) (test code = 2349-9) NEGATIVE NEGATIVE [facility] HospitalUrine ketones detection by automated test mugjl1957-11-51 05:50:00* Test Item Value Reference Range Interpretation Comments Urine Ketones (test code = 53744-2) NEGATIVE NEGATIVE [facility] HospitalUrine urobilinogen measurement by test strip (mass/volume)2019-10-01 05:50:00* Test Item Value Reference Range Interpretation Comments Urine Urobilinogen (test code = 39553-5) 0.2 0.2-1 [facility] HospitalUrine total bilirubin measurement (mass/volume)2019-10-01 05:50:00* Test Item Value Reference Range Interpretation Comments Urine Bilirubin (test code = 1978-6) NEGATIVE NEGATIVE [facility] HospitalUrine erythrocytes xxshhrsuu1404-61-27 05:50:00* Test Item Value Reference Range Interpretation Comments Urine Blood (test code = 82563-8) TRACE NEGATIVE [facility] HospitalAutomated urine sediment leukocyte count by microscopy (number/high power field)2019-10-01 05:50:00* Test Item Value Reference Range Interpretation Comments Urine WBC (test code = 5821-4) 0-5 0-5 [facility] HospitalErythrocytes detection in urine sediment by light bofcpeeikb9272-73-62 05:50:00* Test Item Value Reference Range Interpretation Comments Urine RBC (test code = 22967-6) 0-5 0-5 [facility] HospitalBacteria detection in urine sediment by light vdegmrtluf2842-98-23 05:50:00* Test Item Value Reference Range Interpretation Comments Urine Bacteria (test code = 45622-3) FEW NONE [facility] HospitalEpithelial cells detection in urine sediment by light vercilqvyg8389-01-64 05:50:00* Test Item Value Reference Range Interpretation Comments Urine Epithelial Cells (test code = 04415-9) FEW NONE [facility] HospitalYeast detection in urine sediment by light udccchyqeo6486-21-71 05:50:00* Test Item Value Reference Range Interpretation Comments Urine Yeast (test code = 60024-2) RARE NONE [facility] HospitalBedside Yxlkrzm4269-79-93 08:11:00* Test Item Value Reference Range Interpretation Comments Bedside Glucose (test code = 44027-7) 147 70-120 H Meter ID: [id number] Scott and White Medical Center – FriscoPlatelet Morphology Xpsazzd5728-44-44 08:00:00* Test Item Value Reference Range Interpretation Comments Platelet Morphology Comment (test code = 30175-1) NO EDTA PLT CLUMP S SEEN [facility] Centerodium Qjlsz6337-71-77 07:25:00* Test Item Value Reference Range Interpretation Comments Sodium Level (test code = 2951-2) 139 136-145 [facility] HospitalPotassium Pwvtz2471-39-35 07:25:00* Test Item Value Reference Range Interpretation Comments Potassium Level (test code = 2823-3) 4.3 3.5-5.1 [facility] HospitalChloride Mshdd6732-84-23 07:25:00* Test Item Value Reference Range Interpretation Comments Chloride Level (test code = 2075-0) 108 98-107 H [facility] HospitalCarbon Dioxide Kgmwy3507-42-70 07:25:00* Test Item Value Reference Range Interpretation Comments Carbon Dioxide Level (test code = 2028-9) 21 22-29 L [facility] HospitalAnion Goo4269-38-13 07:25:00* Test Item Value Reference Range Interpretation Comments Anion Gap (test code = 14644-1) 14.3 8-16 [facility] HospitalBlood Urea Uczebdum8257-18-59 07:25:00* Test Item Value Reference Range Interpretation Comments Blood Urea Nitrogen (test code = 3094-0) 8 7-26 [facility] HospitalCreatinine2019-11-09 07:25:00* Test Item Value Reference Range Interpretation Comments Creatinine (test code = 2160-0) 0.67 0.57-1.11 [facility] HospitalBUN/Creatinine Czhsh7792-79-48 07:25:00* Test Item Value Reference Range Interpretation Comments BUN/Creatinine Ratio (test code = 3097-3) 12 6-25 [facility] HospitalEstimat Glomerular Filtration Rate 2019-02-24 07:25:00* Test Item Value Reference Range Interpretation Comments Estimat Glomerular Filtration Rate (test code = 470419373) > 60 >60 Ranges were taken from the National Kidney Disease Education Program and the [facility] Foundation literature.Reference ranges:60 or greater: Ivreyu59-91 ( for 3 consecutive months): Chronic kidney disease 15 or less: Kidney failureCHI [facility] Of RockwallGlucose Dupaw2425-06-88 07:25:00* Test Item Value Reference Range Interpretation Comments Glucose Level (test code = DIS0345) 174 74-118 H [facility] HospitalCalcium Ojaif5086-95-89 07:25:00* Test Item Value Reference Range Interpretation Comments Calcium Level (test code = 57418-5) 9.0 8.4-10.2 [facility] HospitalMagnesium Aksfl6214-18-20 07:25:00* Test Item Value Reference Range Interpretation Comments Magnesium Level (test code = 56171-5) 1.8 1.3-2.1 [facility] HospitalTotal Rtykidsbs9378-83-76 07:25:00* Test Item Value Reference Range Interpretation Comments Total Bilirubin (test code = 1975-2) 0.4 0.2-1.2 [facility] HospitalAspartate Amino Transf (AST/SGOT) 2019-02-24 07:25:00* Test Item Value Reference Range Interpretation Comments Aspartate Amino Transf (AST/SGOT) (test code = Aspartate Amino Transf (AST/SGOT)) 19 5-34 [facility] HospitalAlanine Aminotransferase (ALT/SGPT) 2019-02-24 07:25:00* Test Item Value Reference Range Interpretation Comments Alanine Aminotransferase (ALT/SGPT) (test code = 1742-6) 31 0-55 [facility] HospitalTotal Mmpdugo7793-37-41 07:25:00* Test Item Value Reference Range Interpretation Comments Total Protein (test code = 2885-2) 6.1 6.5-8.1 L [facility] HospitalAlbumin2019-11-09 07:25:00* Test Item Value Reference Range Interpretation Comments Albumin (test code = 1751-7) 2.2 3.5-5.0 L [facility] HospitalGlobulin2019-11-09 07:25:00* Test Item Value Reference Range Interpretation Comments Globulin (test code = 98702-8) 3.9 2.3-3.5 H [facility] HospitalAlbumin/Globulin Biabe6529-68-01 07:25:00 * Test Item Value Reference Range Interpretation Comments Albumin/Globulin Ratio (test code = 1759-0) 0.6 0.8-2.0 L [facility] HospitalAlkaline Kkbpzyovkkf0358-63-87 07:25:00* Test Item Value Reference Range Interpretation Comments Alkaline Phosphatase (test code = 6768-6) 233 40-150 H [facility] HospitalWhite Blood Loahd3757-98-03 07:13:00* Test Item Value Reference Range Interpretation Comments White Blood Count (test code = 6690-2) 13.13 4.8-10.8 H [facility] HospitalRed Blood Qfhpn1255-72-25 07:13:00* Test Item Value Reference Range Interpretation Comments Red Blood Count (test code = 789-8) 3.90 3.6-5.1 [facility] HospitalHemoglobin2019-11-09 07:13:00* Test Item Value Reference Range Interpretation Comments Hemoglobin (test code = 23406-2) 12.5 12.0-16.0 [facility] HospitalHematocrit2019-11-09 07:13:00* Test Item Value Reference Range Interpretation Comments Hematocrit (test code = 4544-3) 38.5 34.2-44.1 [facility] HospitalMean Corpuscular Vwdkzd0046-44-50 07:13:00* Test Item Value Reference Range Interpretation Comments Mean Corpuscular Volume (test code = 787-2) 98.7 81-99 [facility] HospitalMean Corpuscular Tqbvqpkxae9786-09-67 07:13:00* Test Item Value Reference Range Interpretation Comments Mean Corpuscular Hemoglobin (test code = 785-6) 32.1 28-32 H [facility] HospitalMean Corpuscular Hemoglobin Concent 2019-02-24 07:13:00* Test Item Value Reference Range Interpretation Comments Mean Corpuscular Hemoglobin Concent (test code = 786-4) 32.5 31-35 [facility] HospitalRed Cell Distribution Bdvkw4968-72-95 07:13:00* Test Item Value Reference Range Interpretation Comments Red Cell Distribution Width (test code = 59043-0) 14.8 11.7 -14.4 H [facility] HospitalPlatelet Fkjdr8094-10-43 07:13:00* Test Item Value Reference Range Interpretation Comments Platelet Count (test code = 777-3) 210 140-360 [facility] HospitalNeutrophils (%) (Auto)2019-02-24 07:13:00 * Test Item Value Reference Range Interpretation Comments Neutrophils (%) (Auto) (test code = 07624-8) 73.6 38.7-80.0 [facility] HospitalLymphocytes (%) (Auto)2019-02-24 07:13:00 * Test Item Value Reference Range Interpretation Comments Lymphocytes (%) (Auto) (test code = 736-9) 17.6 18.0-39.1 L [facility] HospitalMonocytes (%) (Auto)2019-02-24 07:13:00* Test Item Value Reference Range Interpretation Comments Monocytes (%) (Auto) (test code = 5905-5) 4.4 4.4-11.3 [facility] HospitalEosinophils (%) (Auto)2019-02-24 07:13:00 * Test Item Value Reference Range Interpretation Comments Eosinophils (%) (Auto) (test code = 713-8) 0.9 0.0-6.0 [facility] HospitalBasophils (%) (Auto)2019-02-24 07:13:00* Test Item Value Reference Range Interpretation Comments Basophils (%) (Auto) (test code = 706-2) 0.5 0.0-1.0 [facility] HospitalIM GRANULOCYTES %2019-02-24 07:13:00* Test Item Value Reference Range Interpretation Comments IM GRANULOCYTES % (test code = IM GRANULOCYTES %) 3.0 0.0- 1.0 H [facility] HospitalNeutrophils # (Auto)2019-02-24 07:13:00* Test Item Value Reference Range Interpretation Comments Neutrophils # (Auto) (test code = 751-8) 9.7 2.1-6.9 H [facility] HospitalLymphocytes # (Auto)2019-02-24 07:13:00* Test Item Value Reference Range Interpretation Comments Lymphocytes # (Auto) (test code = 77421-4) 2.3 1.0-3.2 [facility] HospitalMonocytes # (Auto)2019-02-24 07:13:00* Test Item Value Reference Range Interpretation Comments Monocytes # (Auto) (test code = 742-7) 0.6 0.2-0.8 [facility] HospitalEosinophils # (Auto)2019-02-24 07:13:00* Test Item Value Reference Range Interpretation Comments Eosinophils # (Auto) (test code = 711-2) 0.1 0.0-0.4 [facility] HospitalBasophils # (Auto)2019-02-24 07:13:00* Test Item Value Reference Range Interpretation Comments Basophils # (Auto) (test code = 704-7) 0.1 0.0-0.1 [facility] HospitalAbsolute Immature Granulocyte (auto 2019-02-24 07:13:00* Test Item Value Reference Range Interpretation Comments Absolute Immature Granulocyte (auto (anita t code = Absolute Immature Granulocyte (auto) 0.39 0-0.1 H [facility] Centererum or plasma magnesium measurement (mass/volume)2019-02-24 05:30:00* Test Item Value Reference Range Interpretation Comments Magnesium Level (test code = 80169-4) 1.8 1.3-2.1 [facility] HospitalBlood Nxsqhsv2220-49-32 03:54:00* Test Item Value Reference Range Interpretation Comments Blood Culture (test code = 29941712) NO GROWTH AFTER 5 DAYS, FINAL REPORT [facility] CenterIN[facility] (PARANASAL)MIN 0ZHDCX8443-40-87 08:50:00 [facility] [address] [address] Patient Name: ROSA ISELA BENITEZ MR #: [id number] : 1970 Age/Sex: 49/F Req #: [id number] Adm Physician: PARMINDER NARVAEZ MD Ordered by: PARMINDER NARVAEZ MD Report #: [id number] Location: MED/SURG3 Room/Bed: [facility] Procedure: [id number] DX/SINUSES (PARANASAL)MIN 3VIEWS Exam Date: 02/23/19 Exam Time: 08 REPORT STATUS: Si gned EXAMINATION: SINUSES (PARANASAL)MIN 3VIEWS INDICATION: Sinus p ain COMPARISON: None FINDINGS: Mild relative opacification o f the right maxillary sinus compared to the left. The remaining paranasal sinu ses appear clear. The mastoid air cells are well aerated. IMPRESSION: Mild opacification of the right maxillary sinus, which can be seen with fluid or mucosal thickening. Signed by: Dipak Talbot MD on 02/23/2019 8:51 AM Dictated By: DIPAK TALBOT MD 08 COPY TO: PARMINDER NARVAEZ C-Reactive Mrocnun5827-77-16 21:19:00* Test Item Value Reference Range Interpretation Comments C-Reactive Protein (test code = 1988-5) 589 0-10 H Results confirmed ondilution.Performed at: [facility] [address] [facility], [place], [place] [id number] Director: Prasanna Mishra MD, Phone: [phone] Stone Oak HospitalUrine Bfnspnx1697-08-61 08:02:00* Test Item Value Reference Range Interpretation Comments Urine Culture (test code = 630-4) No Result Data Provided [facility] HospitalErythrocyte Sedimentation Bdvj7604-42-91 09:56:00* Test Item Value Reference Range Interpretation Comments Erythrocyte Sedimentation Rate (test code = 4537-7) 80 0- 20 H [facility] HospitalDifferential Total Cells Counted 2019-02-20 08:47:00* Test Item Value Reference Range Interpretation Comments Differential Total Cells Counted (test code = Zain tial Total Cells Counted) 100 [facility] HospitalNeutrophils % (Manual)2019-02-20 08:47:00 * Test Item Value Reference Range Interpretation Comments Neutrophils % (Manual) (test code = 43028-8) 74 40-74 [facility] HospitalBand Neutrophils %2019-02-20 08:47:00* Test Item Value Reference Range Interpretation Comments Band Neutrophils % (test code = 764-1) 16 [facility] HospitalLymphocytes % (Manual)2019-02-20 08:47:00 * Test Item Value Reference Range Interpretation Comments Lymphocytes % (Manual) (test code = 737-7) 3 19-48 L [facility] HospitalMonocytes % (Manual)2019-02-20 08:47:00* Test Item Value Reference Range Interpretation Comments Monocytes % (Manual) (test code = 744-3) 7 3.4-9.0 [facility] HospitalPlatelet Ztdllxes5171-28-22 08:47:00* Test Item Value Reference Range Interpretation Comments Platelet Estimate (test code = 33961-0) SLIGHTLY DECREASED [facility] HospitalPoikilocytosis2019-11-05 08:47:00* Test Item Value Reference Range Interpretation Comments Poikilocytosis (test code = 779-9) SLIGHT [facility] HospitalAnisocytosis2019-11-05 08:47:00* Test Item Value Reference Range Interpretation Comments Anisocytosis (test code = 702-1) SLIGHT [facility] HospitalToxic Fhupdzywrmj1230-63-26 08:47:00* Test Item Value Reference Range Interpretation Comments Toxic Granulation (test code = 803-7) MODERATE [facility] HospitalRed Cell Morphology Vazbcgd3178-00-18 08:47:00* Test Item Value Reference Range Interpretation Comments Red Cell Morphology Comment (test code = 6742-1) NORMAL [facility] HospitalErythrocyte sedimentation rate by Westergren aoilvf7207-38-39 07:40:00* Test Item Value Reference Range Interpretation Comments Erythrocyte Sedimentation Rate (test code = 4537-7) 80 0- 20 [facility] Centererum or plasma C reactive protein measurement (mass/volume)2019-02-20 07:40:00* Test Item Value Reference Range Interpretation Comments C-Reactive Protein (test code = 1988-5) 589 0-10 Results confirmed ondilution.Performed at: [facility] [address] [id number] Director: Prasanna Mishra MD, Phone: [phone] Stone Oak HospitalManual blood band neutrophils form/100 phziywbpuo8960-87-59 04:55:00* Test Item Value Reference Range Interpretation Comments Band Neutrophils % (test code = 764-1) 16 [facility] HospitalBlood poikilocytosis detection by light vtfiivluvq6050-47-54 04:55:00* Test Item Value Reference Range Interpretation Comments Poikilocytosis (test code = 779-9) SLIGHT [facility] HospitalBlood anisocytosis detection by light phswkfwwwc9464-15-27 04:55:00* Test Item Value Reference Range Interpretation Comments Anisocytosis (test code = 702-1) SLIGHT [facility] HospitalBlood toxic granules detection by light vbohmlgsgl1759-42-38 04:55:00* Test Item Value Reference Range Interpretation Comments Toxic Granulation (test code = 803-7) MODERATE [facility] HospitalCT ABDOMEN/PELVIS ZJ1121-25-17 20:27:00 [facility] [address] [address] Patient Name: ROSA ISELA BENITEZ MR #: [id number] : Age/Sex: 49/F Req #: [id number] Adm Physician: PARMINDER NARVAEZ MD Ordered by: KATIE BOWEN MD Report #: [id number] Location: [facility]/SURG3 Room/Bed: [facility] Procedure: [id number] CT/CT ABDOMEN/PELVIS WO Exam Date: 02/19/19 Exam Ti me: 1999 REPORT STATUS: Signed C T Abdomen and Pelvis without contrast INDICATION: Rule out infection, R/O INFECTION [id number] TECHNIQUE: Thin collimation axial images obtained from the diaphragm to the level of the pubic symphysis without nonion ic intravenous contrast. Dose reduction techniques used: Automated exposur e control, adjustment of the mAs and/or kVp according to patient size, standar dized low-dose protocol, and/or iterative reconstruction technique. RADIA TION DOSE: Total DLP: 670.55 mGy*cm Estimated effective dose: (DLP x 0.015 x size factor) mSv CTDIvol has been reviewed. It is below the li mits set by the Radiation Protocol Committee (RPC). COMPARISON: CT abdome n/pelvis 01/27/2019. ABDOMEN FINDINGS: Lung Bases: Bibasilar atelecta sis. The heart is normal in size. There are prominent pericardial fat pads Liver: Profound steatosis. The right lobe of the liver measures 21 cm in javi gth. No mass. Gallbladder: Absent. Biliary tree: No ductal dilatation . Pancreas: Mildly atrophic without mass or ductal dilatation. Spleen: Normal size without mass. Adrenal Glands: No evidence for mass. Kidne ys: Right: Multiple tiny intrarenal calculi. No cortical mass or hydronephro sis Left: 4 mm calculus in the lower pole. No cortical mass or hydronephr osis Lymph Nodes: No enlarged abdominal or periaortic lymph nodes. Aor ta: Normal in diameter. PELVIS FINDINGS: Bowel: Stomach: Normal. Small Bowel: Normal in caliber with normal wall thickness. Large Bowel: Div erticulosis coli. No associated inflammation. No focal mural thickening or per icolonic inflammation. Appendix: Normal. Bladder: Well distended and norm al. Ureters: No ureteral dilatation or calculus. The uterus is present and normal in morphology. No adnexal mass. Peritoneum/retroperitoneum: No free fluid or loculated fluid collection. Bones: Mild degenerative changes of the left hip and spine. No focal osseous lesions. IMPRESSION: 1. Stable severe steatosis. Hepatomegaly. 2. Diverticulosis coli. No evidence f or bowel obstruction or inflammation. Normal appendix. 3. Bilateral intraren al calculi. No obstructive uropathy. 4. No evidence of loculated fluid collect ion the abdomen or pelvis. Signed by: Dr. Lizzy Alonso MD on 9 8:32 PM Dictated By: LIZZY ALONSO MD 31 Transcribed By: BRENDON on 02/19/192031 COPY TO: KATIE BOWEN MD Lactic Acid Ufjyz6100-96-49 08:35:00* Test Item Value Reference Range Interpretation Comments Lactic Acid Level (test code = Lactic Acid Level) 3.6 0.5- 2.0 HH Results repeated and called to MAGEN MOON RN at 0834 on 02/19/19 by Kari Patton. Read back and verified.[facility] HospitalFluoroscopic procedure less than one hour ivjmlwan4252-05-97 07:10:00* Test Item Value Reference Range Interpretation Comments Lactic Acid Level (test code = Lactic Acid Level) 3.6 0.5- 2.0 Results repeated and called to MAGEN MOON RN at 0834 on 02/19/19 by Kari Patton. Read back and verified.[facility] HospitalFOREARM LEFT 2 XAFA6641-81-60 03:17:00 [facility] [address] [address] Patient Name: ROSA ISELA BENITEZ MR #: [id number] : 1970 Age/Sex: 49/F Req #: [id number] Adm Physician: Ordered by: FUNMILAYO CALLOWAY MD Report #: [id number] Location: ER Room/Bed: Procedure: 1 [id number] DX/FOREARM LEFT 2 VIEW Exam Date: 02/19/19 Exam Time: 0215 REPORT STATUS: Sign ed X-RAY RIGHT FOREARM 2 VIEWS X-RAY LEFT FOREARM 2 VIEWS HISTORY: P ain. COMPARISON: None available. FINDINGS: Bones: No acute d isplaced fracture. Osseous alignment is within normal limits. Joints: The joint spaces are well-maintained. Soft tissues: Superficial soft tis sharon laceration and swelling along the mid right forearm dorsal soft tissues. Soft tissue swelling and trace subcutaneous emphysema along the anterolateral aspect of the left elbow and proximal forearm. Mild edema along the medial as pect of the right elbow. IV catheter in the right antecubital fossa. IMPRESSION: 1. No acute radiographic osseous abnormality. 2. Superfi cial soft tissue laceration and swelling along the mid right forearm dorsal so ft tissues. Mild edema along the medial aspect of the right elbow. 3. Soft ti ssue swelling and trace subcutaneous emphysema along the anterolateral aspect of the left elbow and proximal forearm. Signed by: Fabian Grijalva DO on 3:21 AM Dictated By: FABIAN GRIJALVA DO 0321 Transcribed By: BRENDON on 02/19/19 032 1 COPY TO: FUNMILAYO CALLOWAY MD FOREARM RIGHT 2 VIEW 2019-02-19 03:17:00 [address] [address] Patient Name: ROSA ISELA BENITEZ MR #: [id number] : 1970 Age/Sex: 49/F Req #: [id number] Adm Physician: Ordered by: FUNMILAYO CALLOWAY MD Report #: [id number] Location: ER Room/Bed: Procedure: [id number] DX/FOREARM RIGHT 2 VIEW Exam Date: 02/19/19 Exam Time: 0215 REPORT STATUS: Sig rodrigo X-RAY RIGHT FOREARM 2 VIEWS X-RAY LEFT FOREARM 2 VIEWS HISTORY: Pain. COMPARISON: None available. FINDINGS: Bones: No acute displaced fracture. Osseous alignment is within normal limits. Joints: The joint spaces are well-maintained. Soft tissues: Superficial soft ti ssue laceration and swelling along the mid right forearm dorsal soft tissues. Soft tissue swelling and trace subcutaneous emphysema along the anterolateral aspect of the left elbow and proximal forearm. Mild edema along the medial a spect of the right elbow. IV catheter in the right antecubital fossa. IMPRESSION: 1. No acute radiographic osseous abnormality. 2. Superf icial soft tissue laceration and swelling along the mid right forearm dorsal s oft tissues. Mild edema along the medial aspect of the right elbow. 3. Soft t issue swelling and trace subcutaneous emphysema along the anterolateral aspect of the left elbow and proximal forearm. Signed by: Fabian Grijalva DO on 04/21/2018 3:21 AM Dictated By: FABIAN GRIJALVA DO 0321 Transcribed By: BRENDON on 02/19/19 03 21 COPY TO: FUNMILAYO CALLOWAY MD CHEST SINGLE (PORTABLE) 2019-02-19 03:14:00 [place] [id number] [place] [address] Patient Name: ROSA ISELA BENITEZ MR #: [id number] : 1970 Age/Sex: 49/F Req #: [id number] Adm Physician: Ordered by: FUNMILAYO CALLOWAY MD Report #: [id number] Location: ER Room/Bed: Procedure: 1 104-0021 DX/CHEST SINGLE (PORTABLE) Exam Date: 02/19/19 Exam Time: 214 REPORT STATUS: Signed EXAMINATION: CHEST SINGLE (PORTABLE) INDICATION: Fall COMPARISON: Chest radiograph 02/07/2019; abdominal CT 01/27/2019 FINDINGS: AP view TUBES and LINES: None. LUNGS/PLEURA: Stable haz y left basolateral opacity, likely due to pericardial fat pad as seen on abdom inal CT 01/27/2019. PLEURA: No pleural effusion or pneumothorax. HEAR T AND MEDIASTINUM: The cardiomediastinal silhouette is unremarkable. B ONES AND SOFT TISSUES: No acute osseous lesion. Soft tissues are unremarkabl e. UPPER ABDOMEN: No free air under the diaphragm. IMPRESSION: No acute thoracic radiographic abnormality. Stable hazy left basolateral op acity, likely due to pericardial fat pad as seen on abdominal CT 01/27/2019. Signed by: Fabian Grijalva DO on 02/19/2019 3:17 AM Dictated By: BRIANNA GRIJALVA DO 6 Transcribed By: BRENDON on 02/19/19316 COPY TO: FUNMILAYO CALLOWAY 3 + VIEWS [id number] 03:13:00 [address], [place], [place] [address] Patient Name: ROSA ISELA BENITEZ MR #: [id number] : 1970 Age/Sex: 49/F Req #: [id number] Adm Physician: Ordered by: FUNMILAYO CALLOWAY MD Report #: [id number] Location: ER Room/Bed: Procedure: 1 104-0017 DX/ANKLE 3 + VIEWS RIGHT Exam Date: 02/19/19 Exam Time: 0215 REPORT STATUS: Si gned X-ray right ankle 3 views HISTORY: Pain. COMPARISON: None a vailable. FINDINGS: Bones: No acute displaced fracture. Osseou s alignment is within normal limits. Joints: The joint spaces are well-ma intained. Soft tissues: Mild soft tissue swelling about the ankle IM PRESSION: No acute radiographic osseous abnormality. Mild soft tissue sw elling about the ankle. Signed by: Fabian Grijalva DO on 02/19/2019 3:14 AM Dictated By: FABIAN GRIJALVA DO 3 Transcribed By: BRENDON on 02/19/19313 COPY TO: FUNMILAYO CALLOWAY MD KNEE RIGHT THREE [id number] 03:11:[address] [address] Patient Name: ROSA ISELA BENITEZ MR #: [id number] : Age/Sex: 49/F Req #: [id number] Adm Physician: Ordered by: FUNMILAYO CALLOWAY MD Report #: [id number] Location: ER Room/Bed: Procedure: 1 104-0016 DX/KNEE RIGHT THREE VIEWS Exam Date: 02/19/19 Exam Time: 0215 REPORT STATUS: S igned X-ray right knee 3 views HISTORY: Pain. COMPARISON: None a vailable. FINDINGS: Bones: No acute displaced fracture. Osseou s alignment is within normal limits. Joints: The joint spaces are well-ma intained. Soft tissues: Superficial soft tissue defect to the anterior in frapatellar soft tissues. Mild edema about the anterior aspect of the knee. IMPRESSION: No acute radiographic osseous abnormality. Superficial so ft tissue defect to the anterior infrapatellar soft tissues. Mild edema about the anterior aspect of the knee. Signed by: Fabian Grijalva DO on 02/19/2019 3:13 AM Dictated By: FABIAN GRIJALVA DO 2 Transcribed By: BRENDON on 02/19/19312 COPY TO: FUNMILAYO CALLOWAY MD [facility] BILAT 3-4VWS (+/- PELVIS) 2019-02-19 03:09:00 [place] [address] Patient Name: ROSA ISELA BENITEZ MR #: [id number] : 1970 Age/Sex: 49/F Req #: [id number] Adm Physician: Ordered by: FUNMILAYO CALLOWAY MD Report #: [id number] Location: ER Room/Bed: Procedure: 1 104-0020 DX/HIPS BILAT 3-4VWS (+/- PELVIS) Exam Date: Exam Time: REPORT STATUS: Kimberley d X-ray pelvis 1 view X-ray bilateral hips 2 views each HISTORY: Pain . COMPARISON: None available. FINDINGS: The pelvic osseous structures are partially obscured by bowel gas. Bones: No acute displaced fracture. Osseous alignment is within normal limits. Joints: Joint s pace is well-maintained Minimal acetabular osteophytes. Soft tissues: The soft tissues appear unremarkable. Pelvic phleboliths. IMPRESSION: No acute radiographic abnormality. Mild degenerative changes in the hips. Signed by: Fabian Grijalva DO on 02/19/2019 3:11 AM Dictated By: BRIANNA GRIJALVA DO 0 Transcribed By: BRENDON on 02/19/19310 COPY TO: FUNMILAYO CALLOWAY Bacterial urine yhplfmk9643-99-78 02:55:00* Test Item Value Reference Range Interpretation Comments Urine Culture (test code = 630-4) KLEBSIELLA P[facility]UMONIAE [facility] [id number] 02:45:00 [facility] [address] [place] [address] Patient Name: ROSA ISELA BENITEZ MR #: [id number] : Age/Sex: 49/F Req #: [id number] Adm Physician: Ordered by: FUNMILAYO CALLOWAY MD Report #: [id number] Location: ER Room/Bed: Procedure: 1 104-0003 CT/CT CERVICAL SPINE WO Exam Date: 02/19/19 Exam Time: 0155 REPORT STATUS: Sig rodrigo History: Fall. Comparison studies: None Technique: Axial abraham ges were obtained through the cervical region.. Coronal and sagittal images re constructed from the axial data. Dose modulation, iterative reconstruction, an d/or weight based adjustment of the mA/kV was utilized to reduce the radiation dose to as low as reasonably achievable. Intravenous contrast: None Findings: Fractures: None. Soft tissue injuries: None. Atlantoaxial articulation: Intact. Alignment: Loss of normal cervical lordosis is either p ositional or due to muscle spasm. No scoliosis. No subluxation. Cervicomedul attila junction: No abnormalities. The foramen magnum is patent. Soft tissues: N o abnormalities. Vertebrae: No fractures, infection or neoplasm. 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 IMPRESSION: 1. No acute cervical spine fracture or dislo cation. Loss of normal cervical lordosis is either positional or due to muscle spasm. 2. Ligament, spinal cord and or vascular abnormalities cannot be e xcluded on the basis of this examination. Signed by: Dr. Aretha Smalls M.D. on 02/19/2019 2:49 AM Dictated By: ARETHA SMALLS MD Electro nically Signed By: ARETHA SMALLS MD on 02/19/19248 Transcribed By: BRENDON on 02/19/19248 COPY TO: FUNMILAYO CALLOWAY MD CT BRAIN WO 2019-02-19 02:42:00 [place] [address] Patient Name: ROSA ISELA BENITEZ MR #: [id number] : 1970 Age/Sex: 49/F Req #: [id number] Adm Physician: Ordered by: FUNMILAYO CALLOWAY MD Report #: [id number] Location: ER Room/Bed: Procedure: 1 104-0002 CT/CT BRAIN WO Exam Date: 02/19/19 Exam Cr e: 0155 REPORT STATUS: Signed EX AMINATION: Head CT without contrast. HISTORY:Status post fall. CO MPARISON:None. TECHNIQUE: Multidetector axial images were obtained from the fo ramen magnum to the vertex without contrast. The images were reconstructed usi ng brain and bone algorithms. Thin section brain images were reformatted into coronal and sagittal planes. Dose modulation, iterative reconstruction, and /or weight based adjustment of the mA/kV was utilized to reduce the radiation dose to as low as reasonably achievable. Intravenous contrast: None IMAGE QUALITY: Suboptimal evaluation particularly of skull base and posterior fossa structures due to streak artifacts FINDINGS: Skull/scalp: No lytic or blastic. lesions. No surgical changes. Parenchyma: No abnormal d ensity. No acute hemorrhage, mass or acute major vascular territorial infarct. Arteries: No density suggestive of thrombosis. Dural sinuses: No abnormal density suggestive of thrombosis. Ventricles: No hydrocephalus or displacement. Extra-axial spaces: No abnormal density. Brain vo lume: Normal for age. Craniocervical junction: No mass, Chiari malformatio n, or basilar invagination. Sella: No mass. Paranasal/mastoid sin uses: Near complete opacification of right ethmoid air cells. IMPRESSI ON: Suboptimal evaluation due to streak artifacts particularly at the level of skull base and posterior fossa structures, despite the limitation no gross acute intracranial abnormality. Signed by: Dr. Aretha Smalls M.D. on 02/19/2019 2:45 AM Dictated By: ARETHA SMALLS MD 4 Transcribed By: BRENDON on 02/19/19244 COPY TO: FUNMILAYO CALLOWAY MD Creatine Kinase [id number] 02:23:00* Test Item Value Reference Range Interpretation Comments Creatine Kinase MB (test code = 24078-7) 0.60 0-5.0 [facility] [id number] 02:23:00* Test Item Value Reference Range Interpretation Comments Troponin I (test code = BZB6557) < 0.001 0-0.300 [facility] Tlsrou5575-01-10 02:11:00* Test Item Value Reference Range Interpretation Comments Creatine Kinase (test code = 2157-6) 17 29-168 L [facility] HospitalAct[facility] Partial Thromboplast Time 2019-02-19 02:02:00* Test Item Value Reference Range Interpretation Comments Activated Partial Thromboplast Time (test code = 74077-1) 22.8 23.8-35.5 L [facility] HospitalProthrombin Vejo2280-10-04 02:01:00* Test Item Value Reference Range Interpretation Comments Prothrombin Time (test code = 5902-2) 11.9 11.9-14.5 [facility] HospitalProthromb Time International Ratio 2019-02-19 02:01:00* Test Item Value Reference Range Interpretation Comments Prothromb Time International Ratio (test code = 6301-6) 0.83 Oral Anticoagulant Therapy INR Values:1. Low Intensity Therapy 1.5 - 2.02 . Moderate Intensity Therapy 2.0 - 3.03. High Intensity Therapy(1) 2.5 - 3. 54. High Intensity Therapy(2) 3.0 - 4.05. Panic Value INR > 5.0 [facility] HospitalUrine Opiates Nddinn5502-98-21 02:01:00* Test Item Value Reference Range Interpretation Comments Urine Opiates Screen (test code = 19851-7) POSITIVE NEGATIVE H ALL TESTS PERFORMED MANUALLY ON Xiimo TOX/SEE TEST This test provides only a sc reen. Positive results should be repeated by a confirmatory test. PO SITIVE TCAMethod[facility] HospitalUrine Barbiturates Screen 2019-02-19 02:01:00* Test Item Value Reference Range Interpretation Comments Urine Barbiturates Screen (test code = 541542072) NEGATIVE NEGA TIVE [facility] HospitalU[facility] Phencyclidine Bfwcow6946-21-10 02:01:00* Test Item Value Reference Range Interpretation Comments Urine Phencyclidine Screen (test code = 16483-5) NEGATIVE NEGAT DAMIEN [facility] HospitalU[facility] Amphetamines Yvsnhk4927-79-10 02:01:00* Test Item Value Reference Range Interpretation Comments Urine Amphetamines Screen (test code = 13317-0) NEGATIVE NEGATI VE [facility] HospitalU[facility] Methamphetamines Majcmi7353-86-76 02:01:00* Test Item Value Reference Range Interpretation Comments Urine Methamphetamines Screen (test code = Urine Metha mphetamines Screen) NEGATIVE NEGATIVE [facility] Hospital[facility] Benzodiazepines Tnuqpk4515-91-26 02:01:00* Test Item Value Reference Range Interpretation Comments Urine Benzodiazepines Screen (test code = 93373-3) POSITIVE NEG ATIVE H This test provides only a screen. Positive results should be repeated by a confi rmatory test.[facility] Cocaine Screen 2019-02-19 02:01:00* Test Item Value Reference Range Interpretation Comments Urine Cocaine Screen (test code = 3398-5) NEGATIVE NEGATIVE [facility] Cannabinoids Utjdhc0439-77-87 02:01:00* Test Item Value Reference Range Interpretation Comments Urine Cannabinoids Screen (test code = 62813-2) NEGATIVE NEGATI VE THESE RESULTS ARE FOR MEDICAL TREATMENT ONLYTHIS REPORT CONTAINS UNCONFIR MED SCREENING RESULTS*POSITIVE RESULTS WILL BE CONFIRMED BY REFERENCE LAB UPON R EQUEST CUT-OFFDRUG CLASS CONCENTRATION ng/mLAmphetamines 1000Methamphetamines 1000Cocaine 300Opiate 300Phencyc lidine 25Cannabinoid 50Barbiturates 300Benzodiazepine 300Methadone 300[facility] Methadone Pferfj5482-01-65 02:01:00* Test Item Value Reference Range Interpretation Comments Urine Methadone Screen (test code = 06768-3) POSITIVE NEGATIVE H This test provides only a screen. Positive results should be repeated by a confi rmatory test.THESE RESULTS ARE FOR MEDICAL TREATMENT ONLYTHIS REPORT CONT AINS UNCONFIRMED SCREENING RESULTS*POSITIVE RESULTS WILL BE CONFIRMED BY REFEREN CE LAB UPON REQUEST CUT-OFFDRUG CLASS CON CENTRATION ng/mLAmphetamines 1000Methamp hetamines 1000Cocaine Metabolite 300Opiate 300Phencyclidine 25Cannabinoid 50Barbiturates 300Benzodiazepine 300Methadone 30 0[facility] MIJ7502-26-47 02:01:00* Test Item Value Reference Range Interpretation Comments Urine WBC (test code = 5821-4) >50 0-5 H [facility] YPT6623-39-11 02:01:00* Test Item Value Reference Range Interpretation Comments Urine RBC (test code = 99363-3) 6-10 0-5 H [facility] HospitalU[facility] Exakqubc3236-45-52 02:01:00* Test Item Value Reference Range Interpretation Comments Urine Bacteria (test code = 66351-9) MANY NONE H [facility] Epithelial Wkosi0833-37-38 02:01:00 * Test Item Value Reference Range Interpretation Comments Urine Epithelial Cells (test code = 46212-4) FEW NONE [facility] Transitional Epithelial Cells 2019-02-19 02:01:00* Test Item Value Reference Range Interpretation Comments Urine Transitional Epithelial Cells (test code = 8249-5) FEW NONE H [facility] HospitalU[facility] Coarse Granular Sgjuv7721-97-07 02:01:00* Test Item Value Reference Range Interpretation Comments Urine Coarse Granular Casts (test code = 99355-8) 1-5 >0 H [facility] HospitalUrine Nirza1027-45-36 01:58:00* Test Item Value Reference Range Interpretation Comments Urine Color (test code = 5778-6) ORANGE YELLOW H [facility] HospitalUrine Nsknwjl6270-80-72 01:58:00* Test Item Value Reference Range Interpretation Comments Urine Clarity (test code = 82520-4) CLOUDY CLEAR H [facility] HospitalUrine Specific Kbizpfl7776-63-75 01:58:00 * Test Item Value Reference Range Interpretation Comments Urine Specific [place] (test code = 5811-5) >=1.030 1.010-1.02 5 [facility] HospitalU[facility] bU5235-51-35 01:58:00* Test Item Value Reference Range Interpretation Comments Urine pH (test code = 70299-8) 6 5-7 [facility] Leukocyte Zzyojmwi5673-94-92 01:58:00* Test Item Value Reference Range Interpretation Comments Urine Leukocyte Esterase (test code = 44372-0) SMALL NEGATIV E [facility] Uujlqtl7143-32-67 01:58:00* Test Item Value Reference Range Interpretation Comments Urine Nitrite (test code = 67579-4) POSITIVE NEGATIVE H [facility] HospitalU[facility] Ykzajef6483-25-68 01:58:00* Test Item Value Reference Range Interpretation Comments Urine Protein (test code = 98095-1) 1+ NEGATIVE H [facility] Glucose (UA)2019-02-19 01:58:00* Test Item Value Reference Range Interpretation Comments Urine Glucose (UA) (test code = 25908-9) 1+ NEGATIVE [facility] Yviybuo3446-77-25 01:58:00* Test Item Value Reference Range Interpretation Comments Urine Ketones (test code = 18570-2) TRACE NEGATIVE [facility] Pauoqqntvuoo5472-40-72 01:58:00* Test Item Value Reference Range Interpretation Comments Urine Urobilinogen (test code = 01325-3) 1 0.2-1 [facility] Mflazwsab3736-82-92 01:58:00* Test Item Value Reference Range Interpretation Comments Urine Bilirubin (test code = 1977-8) SMALL NEGATIVE [facility] Yqvrx2929-56-96 01:58:00* Test Item Value Reference Range Interpretation Comments Urine Blood (test code = 26030-0) TRACE NEGATIVE [facility] HospitalProthrombin time (PT) in platelet poor plasma by coagulation hajtp8995-41-81 00:28:00* Test Item Value Reference Range Interpretation Comments Prothrombin Time (test code = 5902-2) 11.9 11.9-14.5 [facility] HospitalINR in Platelet poor plasma by Coagulation fecsh1812-72-83 00:28:00* Test Item Value Reference Range Interpretation Comments Prothromb Time International Ratio (test code = 6301-6) 0.83 Oral Anticoagulant Therapy INR Values:1. Low Intensity Therapy 1.5 - 2.02 . Moderate Intensity Therapy 2.0 - 3.03. High Intensity Therapy(1) 2.5 - 3. 54. High Intensity Therapy(2) 3.0 - 4.05. Panic Value INR > 5.0 [facility] HospitalActivated partial thromboplastin time (aPTT) in platelet poor plasma by coagulation wpwwg8071-57-30 00:28:00* Test Item Value Reference Range Interpretation Comments Activated Partial Thromboplast Time (test code = 80019-9) 22.8 23.8-35.5 [facility] HospitalUrine opiates screening myoh9958-29-96 00:28:00* Test Item Value Reference Range Interpretation Comments Urine Opiates Screen (test code = 94667-8) POSITIVE NEGATIVE ALL TESTS PERFORMED MANUALLY ON Xiimo TOX/SEE TEST This test provides only a sc reen. Positive results should be repeated by a confirmatory test. PO SITIVE TCAMethodist Stone Oak HospitalBarbiturates screen, urine 2019-02-19 00:28:00* Test Item Value Reference Range Interpretation Comments Urine Barbiturates Screen (test code = 784478579) NEGATIVE NEGA TIVE [facility] HospitalUrine phencyclidine detection by screening khqquw5212-72-00 00:28:00* Test Item Value Reference Range Interpretation Comments Urine Phencyclidine Screen (test code = 01323-9) NEGATIVE NEGAT DAMIEN [facility] HospitalUrine amphetamines detection by screen method > 1000 ng/uD6183-09-35 00:28:00* Test Item Value Reference Range Interpretation Comments Urine Amphetamines Screen (test code = 31567-6) NEGATIVE NEGATI VE [facility] HospitalFluoroscopic procedure less than one hour mswmqzkl2519-11-80 00:28:00* Test Item Value Reference Range Interpretation Comments Urine Methamphetamines Screen (test code = Urine Metha mphetamines Screen) NEGATIVE NEGATIVE [facility] HospitalUrine benzodiazepines detection by screening tnkllb5840-67-07 00:28:00* Test Item Value Reference Range Interpretation Comments Urine Benzodiazepines Screen (test code = 96512-9) POSITIVE NEG ATIVE This test provides only a screen. Positive results should be repeated by a confi rmatory test.[facility] HospitalUrine cocaine measurement (mass/volume)2019-02-19 00:28:00* Test Item Value Reference Range Interpretation Comments Urine Cocaine Screen (test code = 3398-5) NEGATIVE NEGATIVE [facility] HospitalUrine cannabinoids detection by screening jaarbm6658-45-37 00:28:00* Test Item Value Reference Range Interpretation Comments Urine Cannabinoids Screen (test code = 16849-8) NEGATIVE NEGATI VE THESE RESULTS ARE FOR MEDICAL TREATMENT ONLYTHIS REPORT CONTAINS UNCONFIR MED SCREENING RESULTS*POSITIVE RESULTS WILL BE CONFIRMED BY REFERENCE LAB UPON R EQUEST CUT-OFFDRUG CLASS CONCENTRATION ng/mLAmphetamines 1000Methamphetamines 1000Cocaine 300Opiate 300Phencyc lidine 25Cannabinoid 50Barbiturates 300Benzodiazepine 300Methadone 300[facility] methadone iauzqk8010-62-37 00:28:00* Test Item Value Reference Range Interpretation Comments Urine Methadone Screen (test code = 02799-3) POSITIVE NEGATIVE This test provides only a screen. Positive results should be repeated by a confi rmatory test.THESE RESULTS ARE FOR MEDICAL TREATMENT ONLYTHIS REPORT CONT AINS UNCONFIRMED SCREENING RESULTS*POSITIVE RESULTS WILL BE CONFIRMED BY REFEREN CE LAB UPON REQUEST CUT-OFFDRUG CLASS CON CENTRATION ng/mLAmphetamines 1000Methamp hetamines 1000Cocaine Metabolite 300Opiate 300Phencyclidine 25Cannabinoid 50Barbiturates 300Benzodiazepine 300Methadone 30 0[facility] HospitalTransitional cells detection in urine sediment by light xhinzzkjeh8735-57-56 00:28:00* Test Item Value Reference Range Interpretation Comments Urine Transitional Epithelial Cells (test code = 8249-5) FEW NONE [facility] HospitalCoarse granular casts detection in urine sediment by light rwrqcwbzjn2393-99-04 00:28:00* Test Item Value Reference Range Interpretation Comments Urine Coarse Granular Casts (test code = 46153-5) 1-5 >0 [facility]ererum or plasma creatine kinase measurement (enzymatic activity/volume)2019-02-19 00:28:00* Test Item Value Reference Range Interpretation Comments Creatine Kinase (test code = 2157-6) 17 29-168 [facility] Centererum or plasma creatine kinase MB measurement (mass/volume)2019-02-19 00:28:00* Test Item Value Reference Range Interpretation Comments Creatine Kinase MB (test code = 45995-9) 0.60 0-5.0 [facility] HospitalTroponin I measurement by highly sensitive enzyme xwixjvimjke0293-26-87 00:28:00* Test Item Value Reference Range Interpretation Comments Troponin I (test code = 80497-0) < 0.001 0-0.300 [facility] HospitalBedside Gwpadyj2054-06-65 13:28:00* Test Item Value Reference Range Interpretation Comments Bedside Glucose (test code = 22841-5) 323 70-120 H Meter ID: [id number] Scott and White Medical Center – FriscoBlood Culture 2019-02-12 20:11:00* Test Item Value Reference Range Interpretation Comments Blood Culture (test code = 83210238) NO GROWTH AFTER 5 DAYS, FINAL REPORT [facility] Centerodium Ympkg7981-19-67 05:39:00* Test Item Value Reference Range Interpretation Comments Sodium Level (test code = 2951-2) 140 136-145 [facility] HospitalPotassium Mvufb4360-46-74 05:39:00* Test Item Value Reference Range Interpretation Comments Potassium Level (test code = 2823-3) 4.3 3.5-5.1 [facility] HospitalChloride Fzwyb1743-75-55 05:39:00* Test Item Value Reference Range Interpretation Comments Chloride Level (test code = 2075-0) 104 98-107 [facility] HospitalCarbon Dioxide Ztglf4217-80-20 05:39:00* Test Item Value Reference Range Interpretation Comments Carbon Dioxide Level (test code = 2028-9) 22 22-29 [facility] HospitalAnion Mda8184-88-36 05:39:00* Test Item Value Reference Range Interpretation Comments Anion Gap (test code = 06478-6) 18.3 8-16 H [facility] HospitalBlood Urea Rvkbarkt4846-51-04 05:39:00* Test Item Value Reference Range Interpretation Comments Blood Urea Nitrogen (test code = 3094-0) 12 7-26 [facility] HospitalCreatinine2019-10-24 05:39:00* Test Item Value Reference Range Interpretation Comments Creatinine (test code = 2160-0) 0.76 0.57-1.11 [facility] HospitalBUN/Creatinine Ccpnb4830-46-75 05:39:00* Test Item Value Reference Range Interpretation Comments BUN/Creatinine Ratio (test code = 3097-3) 16 6-25 [facility] HospitalEstimat Glomerular Filtration Rate 2019-02-08 05:39:00* Test Item Value Reference Range Interpretation Comments Estimat Glomerular Filtration Rate (test code = 912653054) > 60 >60 Ranges were taken from the National Kidney Disease Education Program and the [facility] literature.Reference ranges:60 or greater: Bvbcvg50-16 ( for 3 consecutive months): Chronic kidney disease 15 or less: Kidney failureMethodist Stone Oak HospitalGlucose Xongr7850-78-03 05:39:00* Test Item Value Reference Range Interpretation Comments Glucose Level (test code = NBJ5182) 183 74-118 H [facility] HospitalCalcium Cimla4098-45-39 05:39:00* Test Item Value Reference Range Interpretation Comments Calcium Level (test code = 91538-5) 9.1 8.4-10.2 [facility] HospitalPhosphorus Zpake1343-53-95 05:39:00* Test Item Value Reference Range Interpretation Comments Phosphorus Level (test code = GTK1057) 4.3 2.3-4.7 [facility] HospitalMagnesium Axexx3334-31-25 05:39:00* Test Item Value Reference Range Interpretation Comments Magnesium Level (test code = 08920-2) 2.1 1.3-2.1 [facility] HospitalTotal Ndulshgkf0881-28-11 05:39:00* Test Item Value Reference Range Interpretation Comments Total Bilirubin (test code = 1975-2) 0.5 0.2-1.2 [facility] HospitalAspartate Amino Transf (AST/SGOT) 2019-02-08 05:39:00* Test Item Value Reference Range Interpretation Comments Aspartate Amino Transf (AST/SGOT) (test code = Aspartate Amino Transf (AST/SGOT)) 32 5-34 [facility] HospitalAlanine Aminotransferase (ALT/SGPT) 2019-02-08 05:39:00* Test Item Value Reference Range Interpretation Comments Alanine Aminotransferase (ALT/SGPT) (test code = 1742-6) 175 0-55 H [facility] HospitalTotal Jycqpsq2063-36-06 05:39:00* Test Item Value Reference Range Interpretation Comments Total Protein (test code = 2885-2) 6.3 6.5-8.1 L [facility] HospitalAlbumin2019-10-24 05:39:00* Test Item Value Reference Range Interpretation Comments Albumin (test code = 1751-7) 3.1 3.5-5.0 L [facility] HospitalGlobulin2019-10-24 05:39:00* Test Item Value Reference Range Interpretation Comments Globulin (test code = 69292-5) 3.2 2.3-3.5 [facility] HospitalAlbumin/Globulin Udxdd2481-58-77 05:39:00 * Test Item Value Reference Range Interpretation Comments Albumin/Globulin Ratio (test code = 1759-0) 1.0 0.8-2.0 [facility] HospitalAlkaline Olbxdwuvehz3766-97-13 05:39:00* Test Item Value Reference Range Interpretation Comments Alkaline Phosphatase (test code = 6768-6) 90 40-150 [facility] HospitalPhosphorus Vvcez8885-98-96 05:39:00* Test Item Value Reference Range Interpretation Comments Phosphorus Level (test code = HSI1088) 4.3 2.3-4.7 [facility] HospitalWhite Blood Eurxz1166-02-85 05:11:00* Test Item Value Reference Range Interpretation Comments White Blood Count (test code = 6690-2) 16.37 4.8-10.8 H [facility] HospitalRed Blood Quszv9234-77-94 05:11:00* Test Item Value Reference Range Interpretation Comments Red Blood Count (test code = 789-8) 3.58 3.6-5.1 L [facility] HospitalHemoglobin2019-10-24 05:11:00* Test Item Value Reference Range Interpretation Comments Hemoglobin (test code = 76577-9) 11.6 12.0-16.0 L [facility] HospitalHematocrit2019-10-24 05:11:00* Test Item Value Reference Range Interpretation Comments Hematocrit (test code = 4544-3) 36.3 34.2-44.1 [facility] HospitalMean Corpuscular Tqbbag3911-86-26 05:11:00* Test Item Value Reference Range Interpretation Comments Mean Corpuscular Volume (test code = 787-2) 101.4 81-99 H [facility] HospitalMean Corpuscular Uruwrwtdqh8334-50-93 05:11:00* Test Item Value Reference Range Interpretation Comments Mean Corpuscular Hemoglobin (test code = 785-6) 32.4 28-32 H [facility] HospitalMean Corpuscular Hemoglobin Concent 2019-02-08 05:11:00* Test Item Value Reference Range Interpretation Comments Mean Corpuscular Hemoglobin Concent (test code = 786-4) 32.0 31-35 [facility] HospitalRed Cell Distribution Fimer7490-29-53 05:11:00* Test Item Value Reference Range Interpretation Comments Red Cell Distribution Width (test code = 34665-2) 14.6 11.7 -14.4 H [facility] HospitalPlatelet Oyovx3383-09-43 05:11:00* Test Item Value Reference Range Interpretation Comments Platelet Count (test code = 777-3) 394 140-360 H [facility] HospitalNeutrophils (%) (Auto)2019-02-08 05:11:00 * Test Item Value Reference Range Interpretation Comments Neutrophils (%) (Auto) (test code = 29271-3) 75.7 38.7-80.0 [facility] HospitalLymphocytes (%) (Auto)2019-02-08 05:11:00 * Test Item Value Reference Range Interpretation Comments Lymphocytes (%) (Auto) (test code = 736-9) 15.1 18.0-39.1 L [facility] HospitalMonocytes (%) (Auto)2019-02-08 05:11:00* Test Item Value Reference Range Interpretation Comments Monocytes (%) (Auto) (test code = 5905-5) 7.3 4.4-11.3 [facility] HospitalEosinophils (%) (Auto)2019-02-08 05:11:00 * Test Item Value Reference Range Interpretation Comments Eosinophils (%) (Auto) (test code = 713-8) 0.6 0.0-6.0 [facility] HospitalBasophils (%) (Auto)2019-02-08 05:11:00* Test Item Value Reference Range Interpretation Comments Basophils (%) (Auto) (test code = 706-2) 0.4 0.0-1.0 [facility] HospitalIM GRANULOCYTES %2019-02-08 05:11:00* Test Item Value Reference Range Interpretation Comments IM GRANULOCYTES % (test code = IM GRANULOCYTES %) 0.9 0.0- 1.0 [facility] HospitalNeutrophils # (Auto)2019-02-08 05:11:00* Test Item Value Reference Range Interpretation Comments Neutrophils # (Auto) (test code = 751-8) 12.4 2.1-6.9 H [facility] HospitalLymphocytes # (Auto)2019-02-08 05:11:00* Test Item Value Reference Range Interpretation Comments Lymphocytes # (Auto) (test code = 31031-9) 2.5 1.0-3.2 [facility] HospitalMonocytes # (Auto)2019-02-08 05:11:00* Test Item Value Reference Range Interpretation Comments Monocytes # (Auto) (test code = 742-7) 1.2 0.2-0.8 H [facility] HospitalEosinophils # (Auto)2019-02-08 05:11:00* Test Item Value Reference Range Interpretation Comments Eosinophils # (Auto) (test code = 711-2) 0.1 0.0-0.4 [facility] HospitalBasophils # (Auto)2019-02-08 05:11:00* Test Item Value Reference Range Interpretation Comments Basophils # (Auto) (test code = 704-7) 0.1 0.0-0.1 [facility] HospitalAbsolute Immature Granulocyte (auto 2019-02-08 05:11:00* Test Item Value Reference Range Interpretation Comments Absolute Immature Granulocyte (auto (anita t code = Absolute Immature Granulocyte (auto) 0.15 0-0.1 H [facility] HospitalPhosphorus mrikqzswhnd9276-98-85 04:45:00 * Test Item Value Reference Range Interpretation Comments Phosphorus Level (test code = RTE2970) 4.3 2.3-4.7 [facility] HospitalUrine MUX8003-48-63 21:35:00* Test Item Value Reference Range Interpretation Comments Urine WBC (test code = 5821-4) 0-5 0-5 [facility] HospitalUrine HMB0525-03-03 21:35:00* Test Item Value Reference Range Interpretation Comments Urine RBC (test code = 71591-7) NONE 0-5 [facility] HospitalUrine Rrsvmpbd5455-22-26 21:35:00* Test Item Value Reference Range Interpretation Comments Urine Bacteria (test code = 31738-1) MODERATE NONE H [facility] HospitalUrine Epithelial Sijjj7328-59-49 21:35:00 * Test Item Value Reference Range Interpretation Comments Urine Epithelial Cells (test code = 65198-0) NONE NONE [facility] HospitalUrine Ytfpb3248-73-79 21:19:00* Test Item Value Reference Range Interpretation Comments Urine Color (test code = 5778-6) YELLOW YELLOW [facility] HospitalUrine Rizpmxy2293-18-10 21:19:00* Test Item Value Reference Range Interpretation Comments Urine Clarity (test code = 19256-0) SL CLOUDY CLEAR [facility] HospitalUrine Specific Qsbfdyo8116-39-67 21:19:00 * Test Item Value Reference Range Interpretation Comments Urine Specific [place] (test code = 5811-5) >=1.030 1.010-1.02 5 [facility] HospitalUrine vQ2211-81-65 21:19:00* Test Item Value Reference Range Interpretation Comments Urine pH (test code = 47890-8) 6 5-7 [facility] HospitalUrine Leukocyte Kvccmrgy8360-11-48 21:19:00* Test Item Value Reference Range Interpretation Comments Urine Leukocyte Esterase (test code = 60246-8) NEGATIVE NEGATIV E [facility] HospitalUrine Dwcazlm2064-49-21 21:19:00* Test Item Value Reference Range Interpretation Comments Urine Nitrite (test code = 08706-6) NEGATIVE NEGATIVE [facility] HospitalUrine Qknrbff5374-11-60 21:19:00* Test Item Value Reference Range Interpretation Comments Urine Protein (test code = 61341-7) NEGATIVE NEGATIVE [facility] HospitalUrine Glucose (UA)2019-02-07 21:19:00* Test Item Value Reference Range Interpretation Comments Urine Glucose (UA) (test code = 81439-9) NEGATIVE NEGATIVE [facility] HospitalUrine Ypxkcpx9862-89-12 21:19:00* Test Item Value Reference Range Interpretation Comments Urine Ketones (test code = 19554-9) NEGATIVE NEGATIVE [facility] Togrqqyjighm9453-12-73 21:19:00* Test Item Value Reference Range Interpretation Comments Urine Urobilinogen (test code = 72353-5) 0.2 0.2-1 [facility] HospitalUrine Chkhrgsdp8840-97-32 21:19:00* Test Item Value Reference Range Interpretation Comments Urine Bilirubin (test code = 1977-8) NEGATIVE NEGATIVE [facility] HospitalUrine Blmxt0522-19-35 21:19:00* Test Item Value Reference Range Interpretation Comments Urine Blood (test code = 82123-7) NEGATIVE NEGATIVE [facility] HospitalUrine Vwaa3166-38-78 21:18:00* Test Item Value Reference Range Interpretation Comments Urine Test (test code = 2106-3) NEGATIVE NEGATIVE [facility] Jjjd9362-09-01 21:18:00* Test Item Value Reference Range Interpretation Comments Urine Test (test code = 2106-3) NEGATIVE NEGATIVE [facility] HospitalUrine human chorionic gonadotropin (hCG) cfhtnwnps3389-83-29 20:45:00* Test Item Value Reference Range Interpretation Comments Urine Test (test code = 2106-3) NEGATIVE NEGATIVE [facility] HospitalLactic Acid Gqnfd2993-51-68 20:04:00* Test Item Value Reference Range Interpretation Comments Lactic Acid Level (test code = Lactic Acid Level) 1.6 0.5- 2.0 [facility] HospitalCHES SINGLE (PORTABLE)2019-02-07 19:03:00 [place] [address] Patient Name: ROSA ISELA BENITEZ MR #: [id number] : 1970 Age/Sex: 49/F Req #: [id number] Adm Physician: Ordered by: ESTER PASTOR MD, MD Report #: [id number] Location: ER Room/Bed: Procedure: 1023-0 072 DX/CHEST SINGLE (PORTABLE) Exam Date: Exam Time : REPORT STATUS: Signed Examina tion: Single AP view of the chest. COMPARISON: None. INDICATION: Lupus DISCUSSION: Lines/tubes: None. Lungs: The lungs are well inflated and clear. No pneumonia or pulmonary edema. Pleura: No pleural ef fusion or pneumothorax. Heart and mediastinum: The heart and the mediastin um are unremarkable. Bones and soft tissues: No acute bony abnormalities. IMPRESSION: 1. No acute cardiopulmonary abnormalities. Kimberley d by: Dr. Zuri Otto M.D. on 02/07/2019 7:03 PM Dictated By: ZURI OTTO MD 02 Tr anscribed By: BRENDON on 02/07/191902 COPY TO: ESTER PASTOR B-Type Natriuretic Gwaehjn3762-65-48 18:26:00* Test Item Value Reference Range Interpretation Comments B-Type Natriuretic Peptide (test code = 28654-1) 58.7 0-100 [facility] HospitalCreatine Kinase EG2335-22-30 18:26:00* Test Item Value Reference Range Interpretation Comments Creatine Kinase MB (test code = 86426-9) 3.70 0-5.0 [facility] HospitalTroponin B6005-20-16 18:26:00* Test Item Value Reference Range Interpretation Comments Troponin I (test code = QWM2119) 0.011 0-0.300 [facility] HospitalB-Type Natriuretic Jybyxls4385-80-23 18:26:00* Test Item Value Reference Range Interpretation Comments B-Type Natriuretic Peptide (test code = 74925-7) 58.7 0-100 [facility] HospitalCreatine Ueqcei9908-85-98 18:16:00* Test Item Value Reference Range Interpretation Comments Creatine Kinase (test code = 2157-6) 117 29-168 [facility] HospitalLipase2019-10-23 18:16:00* Test Item Value Reference Range Interpretation Comments Lipase (test code = 3040-3) [facility] HospitalLipase2019-10-23 18:16:00* Test Item Value Reference Range Interpretation Comments Lipase (test code = 3040-3) [facility] HospitalProthrombin Bnfh9678-20-08 18:05:00* Test Item Value Reference Range Interpretation Comments Prothrombin Time (test code = 5902-2) 12.4 11.9-14.5 [facility] HospitalProthromb Time International Ratio 2019-02-07 18:05:00* Test Item Value Reference Range Interpretation Comments Prothromb Time International Ratio (test code = 6301-6) 0.88 Oral Anticoagulant Therapy INR Values:1. Low Intensity Therapy 1.5 - 2.02 . Moderate Intensity Therapy 2.0 - 3.03. High Intensity Therapy(1) 2.5 - 3. 54. High Intensity Therapy(2) 3.0 - 4.05. Panic Value INR > 5.0 [facility] HospitalActivated Partial Thromboplast Time 2019-02-07 18:05:00* Test Item Value Reference Range Interpretation Comments Activated Partial Thromboplast Time (test code = 05781-5) 24.1 23.8-35.5 [facility] HospitalBNP Fyx-lJjb5725-31-23 15:15:00* Test Item Value Reference Range Interpretation Comments B-Type Natriuretic Peptide (test code = 12411-9) 58.7 0-100 [facility] or plasma lipase measurement (enzymatic activity/volume)2019-02-07 15:15:00* Test Item Value Reference Range Interpretation Comments Lipase (test code = 3040-3) 22 8-78 [facility] HospitalWhite Blood Xdpin8005-53-05 06:17:00* Test Item Value Reference Range Interpretation Comments White Blood Count (test code = 6690-2) 15.04 4.8-10.8 H [facility] HospitalRed Blood Vrgpe3274-02-10 06:17:00* Test Item Value Reference Range Interpretation Comments Red Blood Count (test code = 789-8) 3.84 3.6-5.1 [facility] HospitalHemoglobin2019-10-14 06:17:00* Test Item Value Reference Range Interpretation Comments Hemoglobin (test code = 47912-6) 12.6 12.0-16.0 [facility] HospitalHematocrit2019-10-14 06:17:00* Test Item Value Reference Range Interpretation Comments Hematocrit (test code = 4544-3) 37.6 34.2-44.1 [facility] HospitalMean Corpuscular Fmsszj8649-60-77 06:17:00* Test Item Value Reference Range Interpretation Comments Mean Corpuscular Volume (test code = 787-2) 97.9 81-99 [facility] HospitalMean Corpuscular Xicxoazyzg5075-75-47 06:17:00* Test Item Value Reference Range Interpretation Comments Mean Corpuscular Hemoglobin (test code = 785-6) 32.8 28-32 H [facility] HospitalMean Corpuscular Hemoglobin Concent 2019-01-29 06:17:00* Test Item Value Reference Range Interpretation Comments Mean Corpuscular Hemoglobin Concent (test code = 786-4) 33.5 31-35 [facility] HospitalRed Cell Distribution Zbxtl6556-44-17 06:17:00* Test Item Value Reference Range Interpretation Comments Red Cell Distribution Width (test code = 16938-1) 13.6 11.7 -14.4 [facility] HospitalPlatelet Lvwti8698-96-60 06:17:00* Test Item Value Reference Range Interpretation Comments Platelet Count (test code = 777-3) 445 140-360 H [facility] HospitalNeutrophils (%) (Auto)2019-01-29 06:17:00 * Test Item Value Reference Range Interpretation Comments Neutrophils (%) (Auto) (test code = 86687-8) 71.6 38.7-80.0 [facility] HospitalLymphocytes (%) (Auto)2019-01-29 06:17:00 * Test Item Value Reference Range Interpretation Comments Lymphocytes (%) (Auto) (test code = 736-9) 20.3 18.0-39.1 [facility] HospitalMonocytes (%) (Auto)2019-01-29 06:17:00* Test Item Value Reference Range Interpretation Comments Monocytes (%) (Auto) (test code = 5905-5) 6.1 4.4-11.3 [facility] HospitalEosinophils (%) (Auto)2019-01-29 06:17:00 * Test Item Value Reference Range Interpretation Comments Eosinophils (%) (Auto) (test code = 713-8) 0.4 0.0-6.0 [facility] HospitalBasophils (%) (Auto)2019-01-29 06:17:00* Test Item Value Reference Range Interpretation Comments Basophils (%) (Auto) (test code = 706-2) 0.4 0.0-1.0 [facility] HospitalIM GRANULOCYTES %2019-01-29 06:17:00* Test Item Value Reference Range Interpretation Comments IM GRANULOCYTES % (test code = IM GRANULOCYTES %) 1.2 0.0- 1.0 H [facility] HospitalNeutrophils # (Auto)2019-01-29 06:17:00* Test Item Value Reference Range Interpretation Comments Neutrophils # (Auto) (test code = 751-8) 10.8 2.1-6.9 H [facility] HospitalLymphocytes # (Auto)2019-01-29 06:17:00* Test Item Value Reference Range Interpretation Comments Lymphocytes # (Auto) (test code = 72331-1) 3.1 1.0-3.2 [facility] HospitalMonocytes # (Auto)2019-01-29 06:17:00* Test Item Value Reference Range Interpretation Comments Monocytes # (Auto) (test code = 742-7) 0.9 0.2-0.8 H [facility] HospitalEosinophils # (Auto)2019-01-29 06:17:00* Test Item Value Reference Range Interpretation Comments Eosinophils # (Auto) (test code = 711-2) 0.1 0.0-0.4 [facility] HospitalBasophils # (Auto)2019-01-29 06:17:00* Test Item Value Reference Range Interpretation Comments Basophils # (Auto) (test code = 704-7) 0.1 0.0-0.1 [facility] HospitalAbsolute Immature Granulocyte (auto 2019-01-29 06:17:00* Test Item Value Reference Range Interpretation Comments Absolute Immature Granulocyte (auto (anita t code = Absolute Immature Granulocyte (auto) 0.18 0-0.1 H [facility] Centerodium Qigko2335-43-20 06:12:00* Test Item Value Reference Range Interpretation Comments Sodium Level (test code = 2951-2) 138 136-145 [facility] HospitalPotassium Sjkte5050-97-33 06:12:00* Test Item Value Reference Range Interpretation Comments Potassium Level (test code = 2823-3) 3.5 3.5-5.1 [facility] HospitalChloride Wktdn4634-71-78 06:12:00* Test Item Value Reference Range Interpretation Comments Chloride Level (test code = 2075-0) 102 98-107 [facility] HospitalCarbon Dioxide Eyscs8636-37-10 06:12:00* Test Item Value Reference Range Interpretation Comments Carbon Dioxide Level (test code = 2028-9) 27 22-29 [facility] HospitalAnion Fsv3395-65-97 06:12:00* Test Item Value Reference Range Interpretation Comments Anion Gap (test code = 86278-9) 12.5 8-16 [facility] HospitalBlood Urea Vcglasir8287-09-48 06:12:00* Test Item Value Reference Range Interpretation Comments Blood Urea Nitrogen (test code = 3094-0) 13 7-26 [facility] HospitalCreatinine2019-10-14 06:12:00* Test Item Value Reference Range Interpretation Comments Creatinine (test code = 2160-0) 0.97 0.57-1.11 [facility] HospitalBUN/Creatinine Ywpbd1736-70-59 06:12:00* Test Item Value Reference Range Interpretation Comments BUN/Creatinine Ratio (test code = 3097-3) 13 6- [facility] HospitalEstimat Glomerular Filtration Rate 2019-01-29 06:12:00* Test Item Value Reference Range Interpretation Comments Estimat Glomerular Filtration Rate (test code = 271512558) > 60 >60 Ranges were taken from the National Kidney Disease Education Program and the [place] on license of [facility] [employer] literature.Reference ranges:60 or greater: Etpcun17-34 ( for 3 consecutive months): Chronic kidney disease 15 or less: Kidney failureMethodist Stone Oak HospitalGlucose Carqa9999-07-69 06:12:00* Test Item Value Reference Range Interpretation Comments Glucose Level (test code = ONZ1996) 176 74-118 H [facility] HospitalCalcium Miwwu2616-61-27 06:12:00* Test Item Value Reference Range Interpretation Comments Calcium Level (test code = 95279-6) 9.1 8.4-10.2 [facility] HospitalTotal Btpmazzct9690-91-10 06:12:00* Test Item Value Reference Range Interpretation Comments Total Bilirubin (test code = 1975-2) 0.3 0.2-1.2 [facility] HospitalAspartate Amino Transf (AST/SGOT) 2019-01-29 06:12:00* Test Item Value Reference Range Interpretation Comments Aspartate Amino Transf (AST/SGOT) (test code = Aspartate Amino Transf (AST/SGOT)) 33 5-34 [facility] HospitalAlanine Aminotransferase (ALT/SGPT) 2019-01-29 06:12:00* Test Item Value Reference Range Interpretation Comments Alanine Aminotransferase (ALT/SGPT) (test code = 1742-6) 34 0-55 [facility] HospitalTotal Tffbtcs4864-61-71 06:12:00* Test Item Value Reference Range Interpretation Comments Total Protein (test code = 2885-2) 6.2 6.5-8.1 L [facility] HospitalAlbumin2019-10-14 06:12:00* Test Item Value Reference Range Interpretation Comments Albumin (test code = 1751-7) 3.0 3.5-5.0 L [facility] HospitalGlobulin2019-10-14 06:12:00* Test Item Value Reference Range Interpretation Comments Globulin (test code = 89905-3) 3.2 2.3-3.5 [facility] HospitalAlbumin/Globulin Ccerw7164-91-11 06:12:00 * Test Item Value Reference Range Interpretation Comments Albumin/Globulin Ratio (test code = 1759-0) 0.9 0.8-2.0 [facility] HospitalAlkaline Ragagweykpl8582-75-53 06:12:00* Test Item Value Reference Range Interpretation Comments Alkaline Phosphatase (test code = 6768-6) 74 40-150 [facility] HospitalBedside Uhilbux5109-53-73 21:06:00* Test Item Value Reference Range Interpretation Comments Bedside Glucose (test code = 34001-3) 181 70-120 H Meter ID: [id number] Scott and White Medical Center – FriscoMagnesium Level 2019-01-28 06:36:00* Test Item Value Reference Range Interpretation Comments Magnesium Level (test code = 07469-7) 2.2 1.3-2.1 H [facility] HospitalCHEST 2 HRIUH8379-63-68 10:04:00 [facility] [address] [address] Patient Name: ROSA ISELA BENITEZ MR #: [id number] : Age/Sex: 48/F Req #: [id number] Adm Physician: Ordered by: SHEY CORONEL MD Report #: [id number] Location: ER Room/Bed: Procedure: 1012-0 009 DX/CHEST 2 VIEWS Exam Date: 01/27/19 Exam Time: 0935 REPORT STATUS: Signed EXAMI NATION: CHEST 2 VIEWS INDICATION: Weakness. COMPARISON: CT Abdo men/Pelvis 01/27/2019. Chest radiograph 11/18/2018. FINDINGS: TUBES a nd LINES: None. LUNGS: Lungs are moderately inflated. There is patchy opa city in the left lower lung. No evidence of pulmonary edema. PLEURA: No pleural effusion or pneumothorax. HEART AND MEDIASTINUM: The cardiomedias tinal silhouette is unremarkable. BONES AND SOFT TISSUES: No acute oss eous abnormality. UPPER ABDOMEN: No free air under the diaphragm. IMPRESSION: Patchy left lower lung opacity, likely atelectasis. Signed b y: Dr. Gonzalo Carlin MD on 01/27/2019 10:06 AM Dictated By: GONZALO CARLIN MD 1006 Transcribed By: NINO Donohue on 01/27/19 1006 COPY TO: SHEY CORONEL MD CT ABDOMEN/PELVIS LC1718-27-25 08:39:[address] [address] Patient Name: ROSA ISELA BENITEZ MR #: [id number] : 1970 Age/Sex: 48/F [facility] #: [id number] [facility] Physician: Ordered by: SHEY CORONEL MD Report #: [id number] Location: ER Room/Bed: Procedure: 1012-[address]/CT ABDOMEN/PELVIS WO Exam Date: 01/27/19 Exam Time: 0810 REPORT STATUS: Signed EXAM: CT Abdomen and Pelvis WITHOUT contrast INDICATION: Abdominal pain . COMPARISON: Liver ultrasound 04/10/2018. TECHNIQUE: Abdomen and pe lvis were scanned utilizing a multidetector helical scanner from the lung base to the pubic symphysis without administration of IV contrast. Absence of intr avenous contrast decreases sensitivity for detection of focal lesions and vasc ular pathology. Coronal and sagittal reformations were obtained. Routine babar col was performed. IV CONTRAST: None. ORAL CONTRAST : Water RADIATION DOSE: Total DLP: 415.8 mGy*cm Est imated effective dose: (DLP x 0.015 x size factor) mSv COMPLICATIO NS: None FINDINGS: LINES and TUBES: None. LOWER THORAX: Patchy a telectasis in the lingula. HEPATOBILIARY: Diffuse hepatic steatosis. Hepato megaly. No focal hepatic lesions. CBD measures up to 1.1 cm, likely post cyndy cystectomy reservoir effect. GALLBLADDER: Status post cholecystectomy. SPLEEN: No splenomegaly. PANCREAS: No focal masses or ductal dilatati on. ADRENALS: No adrenal nodules KIDNEYS/URETERS: No hydronephr osis. No cystic or solid mass lesions. There are bilateral nonobstructing julisa al stones, measuring up to 4 mm in the left lower pole and 4 mm in the right m id pole. GI TRACT: No abnormal distention, wall thickening, or evidence of bowel obstruction. Scattered colonic diverticulosis without CT evidence of diverticulitis. Appendix is normal. PELVIC ORGANS/BLADDER: Unremarkable. LYMPH NODES: No lymphadenopathy. VESSELS: Unremarkable. PERITONEUM / RETROPERITONEUM: No free air or fluid. BONES: Unremarkable. SOFT TI SSUES: Unremarkable. IMPRESSION: Hepatomegaly and hepatic st eatosis. CBD measures up to 1.1 cm, likely post cholecystectomy reservoir effe ct. Nonobstructing bilateral renal stones, measuring up to 4 mm. Sig rodrigo by: Dr. Gonzalo Carlin MD on 01/27/2019 8:46 AM Dictated By: GONZALO CARLIN MD 5 Transcribed By: PEACE POE on 01/27/19845 COPY TO: SHEY CORONEL MD Creatine Kinase HG7159-06-18 08:23:00* Test Item Value Reference Range Interpretation Comments Creatine Kinase MB (test code = 35588-4) 4.10 0-5.0 [facility] HospitalTroponin V4797-15-39 08:23:00* Test Item Value Reference Range Interpretation Comments Troponin I (test code = URJ1917) 0.014 0-0.300 [facility] [facility]Creat[facility] Gqayup2211-35-21 08:18:00* Test Item Value Reference Range Interpretation Comments Creatine Kinase (test code = 2157-6) 76 29-168 [facility] MDV1754-41-27 08:11:00* Test Item Value Reference Range Interpretation Comments Urine WBC (test code = 5821-4) 0-5 0-5 [facility] HOU7352-28-29 08:11:00* Test Item Value Reference Range Interpretation Comments Urine RBC (test code = 12730-4) 0-5 0-5 [facility] Nzdjzayw6899-87-94 08:11:00* Test Item Value Reference Range Interpretation Comments Urine Bacteria (test code = 67791-4) RARE NONE [facility] Epithelial Xuitc2607-73-61 08:11:00 * Test Item Value Reference Range Interpretation Comments Urine Epithelial Cells (test code = 46912-8) MODERATE NONE [facility] Hdftu3790-56-60 08:01:00* Test Item Value Reference Range Interpretation Comments Urine Color (test code = 5778-6) YELLOW YELLOW [facility] Ousfohq5388-66-79 08:01:00* Test Item Value Reference Range Interpretation Comments Urine Clarity (test code = 72740-3) CLEAR CLEAR [facility] Specific Zwmvlls9269-96-04 08:01:00 * Test Item Value Reference Range Interpretation Comments Urine Specific [place] (test code = 5811-5) 1.010 1.010-1.02 5 [facility] dK9419-26-62 08:01:00* Test Item Value Reference Range Interpretation Comments Urine pH (test code = 49384-0) 6.5 5-7 [facility] Leukocyte Tzzcsmcu7554-11-02 08:01:00* Test Item Value Reference Range Interpretation Comments Urine Leukocyte Esterase (test code = 29800-9) NEGATIVE NEGATIV E [facility] Brnpeuj2638-89-86 08:01:00* Test Item Value Reference Range Interpretation Comments Urine Nitrite (test code = 16324-0) NEGATIVE NEGATIVE [facility] Osurjas6842-00-14 08:01:00* Test Item Value Reference Range Interpretation Comments Urine Protein (test code = 72280-5) NEGATIVE NEGATIVE [facility] Glucose (UA)2019-01-27 08:01:00* Test Item Value Reference Range Interpretation Comments Urine Glucose (UA) (test code = 61449-3) 2+ NEGATIVE H [facility] Zzzxybq5112-72-52 08:01:00* Test Item Value Reference Range Interpretation Comments Urine Ketones (test code = 36325-5) NEGATIVE NEGATIVE [facility] Ysohroacbykv4069-92-67 08:01:00* Test Item Value Reference Range Interpretation Comments Urine Urobilinogen (test code = 97500-4) 0.2 0.2-1 [facility] Abnpdeqgi1836-76-76 08:01:00* Test Item Value Reference Range Interpretation Comments Urine Bilirubin (test code = 1977-8) NEGATIVE NEGATIVE [facility] Hjzww9378-06-53 08:01:00* Test Item Value Reference Range Interpretation Comments Urine Blood (test code = 08998-9) NEGATIVE NEGATIVE [facility] HospitalBedside Rjujhlz3756-18-51 11:45:00* Test Item Value Reference Range Interpretation Comments Bedside Glucose (test code = 65508-3) 108 70-120 Meter ID: [id number] Regional Medical Centerodium Level 2018-11-29 06:48:00* Test Item Value Reference Range Interpretation Comments Sodium Level (test code = 2951-2) 134 136-145 L [facility] HospitalPotassium Kyszc2500-16-02 06:48:00* Test Item Value Reference Range Interpretation Comments Potassium Level (test code = 2823-3) 3.8 3.5-5.1 [facility] HospitalChloride Ogctc7279-94-82 06:48:00* Test Item Value Reference Range Interpretation Comments Chloride Level (test code = 2075-0) 101 98-107 [facility] HospitalCarbon Dioxide Xarky3912-45-24 06:48:00* Test Item Value Reference Range Interpretation Comments Carbon Dioxide Level (test code = 2028-9) 23 22-29 [facility] HospitalAnion Enk4649-99-55 06:48:00* Test Item Value Reference Range Interpretation Comments Anion Gap (test code = 50633-6) 13.8 8-16 [facility] HospitalBlood Urea Wvzqimcb8584-73-88 06:48:00* Test Item Value Reference Range Interpretation Comments Blood Urea Nitrogen (test code = 3094-0) 8 7-26 [facility] HospitalCreatinine2019-08-14 06:48:00* Test Item Value Reference Range Interpretation Comments Creatinine (test code = 2160-0) 0.83 0.57-1.11 [facility] HospitalBUN/Creatinine Qmzcq5318-19-24 06:48:00* Test Item Value Reference Range Interpretation Comments BUN/Creatinine Ratio (test code = 3097-3) 10 6-25 [facility] HospitalEstimat Glomerular Filtration Rate 2018-11-29 06:48:00* Test Item Value Reference Range Interpretation Comments Estimat Glomerular Filtration Rate (test code = 781408304) > 60 >60 Ranges were taken from the National Kidney Disease Education Program and the [facility] literature.Reference ranges:60 or greater: Mzihyd06-57 ( for 3 consecutive months): Chronic kidney disease 15 or less: Kidney failureMethodist Stone Oak HospitalGlucose Hlwwh7986-41-41 06:48:00* Test Item Value Reference Range Interpretation Comments Glucose Level (test code = NEI7991) 128 74-118 H [facility] HospitalCalcium Djsau8387-63-96 06:48:00* Test Item Value Reference Range Interpretation Comments Calcium Level (test code = 77659-2) 9.2 8.4-10.2 [facility] HospitalTotal Izndghvmo4326-90-52 06:48:00* Test Item Value Reference Range Interpretation Comments Total Bilirubin (test code = 1975-2) 0.4 0.2-1.2 [facility] HospitalAspartate Amino Transf (AST/SGOT) 2018-11-29 06:48:00* Test Item Value Reference Range Interpretation Comments Aspartate Amino Transf (AST/SGOT) (test code = Aspartate Amino Transf (AST/SGOT)) 42 5-34 H [facility] HospitalAlanine Aminotransferase (ALT/SGPT) 2018-11-29 06:48:00* Test Item Value Reference Range Interpretation Comments Alanine Aminotransferase (ALT/SGPT) (test code = 1742-6) 76 0-55 H [facility] HospitalTotal Yexppsr9034-97-27 06:48:00* Test Item Value Reference Range Interpretation Comments Total Protein (test code = 2885-2) 6.9 6.5-8.1 [facility] HospitalAlbumin2019-08-14 06:48:00* Test Item Value Reference Range Interpretation Comments Albumin (test code = 1751-7) 3.3 3.5-5.0 L [facility] HospitalGlobulin2019-08-14 06:48:00* Test Item Value Reference Range Interpretation Comments Globulin (test code = 10847-4) 3.6 2.3-3.5 H [facility] HospitalAlbumin/Globulin Eikpq8791-90-75 06:48:00 * Test Item Value Reference Range Interpretation Comments Albumin/Globulin Ratio (test code = 1759-0) 0.9 0.8-2.0 [facility] HospitalAlkaline Rbjrqokzmpo2669-05-52 06:48:00* Test Item Value Reference Range Interpretation Comments Alkaline Phosphatase (test code = 6768-6) 324 40-150 H [facility] HospitalWhite Blood Tsqxd6236-93-51 06:15:00* Test Item Value Reference Range Interpretation Comments White Blood Count (test code = 6690-2) 13.02 4.8-10.8 H [facility] HospitalRed Blood Kjbab4034-76-46 06:15:00* Test Item Value Reference Range Interpretation Comments Red Blood Count (test code = 789-8) 4.28 3.6-5.1 [facility] HospitalHemoglobin2019-08-14 06:15:00* Test Item Value Reference Range Interpretation Comments Hemoglobin (test code = 80124-9) 14.8 12.0-16.0 [facility] HospitalHematocrit2019-08-14 06:15:00* Test Item Value Reference Range Interpretation Comments Hematocrit (test code = 4544-3) 46.0 34.2-44.1 H [facility] HospitalMean Corpuscular Vnpzoj2997-28-09 06:15:00* Test Item Value Reference Range Interpretation Comments Mean Corpuscular Volume (test code = 787-2) 107.5 81-99 H [facility] HospitalMean Corpuscular Bswwicjebg2358-08-72 06:15:00* Test Item Value Reference Range Interpretation Comments Mean Corpuscular Hemoglobin (test code = 785-6) 34.6 28-32 H [facility] HospitalMean Corpuscular Hemoglobin Concent 2018-11-29 06:15:00* Test Item Value Reference Range Interpretation Comments Mean Corpuscular Hemoglobin Concent (test code = 786-4) 32.2 31-35 [facility] HospitalRed Cell Distribution Yrsin5295-24-95 06:15:00* Test Item Value Reference Range Interpretation Comments Red Cell Distribution Width (test code = 77388-5) 14.1 11.7 -14.4 [facility] HospitalPlatelet Dslgn2040-82-49 06:15:00* Test Item Value Reference Range Interpretation Comments Platelet Count (test code = 777-3) 359 140-360 [facility] HospitalNeutrophils (%) (Auto)2018-11-29 06:15:00 * Test Item Value Reference Range Interpretation Comments Neutrophils (%) (Auto) (test code = 98650-8) 64.4 38.7-80.0 [facility] HospitalLymphocytes (%) (Auto)2018-11-29 06:15:00 * Test Item Value Reference Range Interpretation Comments Lymphocytes (%) (Auto) (test code = 736-9) 20.7 18.0-39.1 [facility] HospitalMonocytes (%) (Auto)2018-11-29 06:15:00* Test Item Value Reference Range Interpretation Comments Monocytes (%) (Auto) (test code = 5905-5) 8.8 4.4-11.3 [facility] HospitalEosinophils (%) (Auto)2018-11-29 06:15:00 * Test Item Value Reference Range Interpretation Comments Eosinophils (%) (Auto) (test code = 713-8) 3.1 0.0-6.0 [facility] HospitalBasophils (%) (Auto)2018-11-29 06:15:00* Test Item Value Reference Range Interpretation Comments Basophils (%) (Auto) (test code = 706-2) 1.2 0.0-1.0 H [facility] HospitalIM GRANULOCYTES %2018-11-29 06:15:00* Test Item Value Reference Range Interpretation Comments IM GRANULOCYTES % (test code = IM GRANULOCYTES %) 1.8 0.0- 1.0 H [facility] HospitalNeutrophils # (Auto)2018-11-29 06:15:00* Test Item Value Reference Range Interpretation Comments Neutrophils # (Auto) (test code = 751-8) 8.4 2.1-6.9 H [facility] HospitalLymphocytes # (Auto)2018-11-29 06:15:00* Test Item Value Reference Range Interpretation Comments Lymphocytes # (Auto) (test code = 71467-9) 2.7 1.0-3.2 [facility] HospitalMonocytes # (Auto)2018-11-29 06:15:00* Test Item Value Reference Range Interpretation Comments Monocytes # (Auto) (test code = 742-7) 1.2 0.2-0.8 H [facility] HospitalEosinophils # (Auto)2018-11-29 06:15:00* Test Item Value Reference Range Interpretation Comments Eosinophils # (Auto) (test code = 711-2) 0.4 0.0-0.4 [facility] HospitalBasophils # (Auto)2018-11-29 06:15:00* Test Item Value Reference Range Interpretation Comments Basophils # (Auto) (test code = 704-7) 0.2 0.0-0.1 H [facility] HospitalAbsolute Immature Granulocyte (auto 2018-11-29 06:15:00* Test Item Value Reference Range Interpretation Comments Absolute Immature Granulocyte (auto (anita t code = Absolute Immature Granulocyte (auto) 0.24 0-0.1 H [facility] HospitalUS EXTREMITY GONZALES WXT-DFC9416-20-09 16:58:00 [place] [address] Patient Name: ROSA ISELA BENITEZ MR #: [id number] : 1970 Age/Sex: 48/F Req #: [id number] Adm Physician: PARMINDER NARVAEZ MD Ordered by: KATIE BOWEN MD Report #: [id number] Location: MED/SURG2 Room/Bed: [facility] Procedure: [id number] US/US EXTREMITY GONZALES NON-VAS Exam Date: 11/24/18 Margarita jefferson Time: 1438 REPORT STATUS: Signed EXAM: Focused Soft Tissue Ultrasound Evaluation of areas of clinical concern on right foot and left leg INDICATION: SOFT TISSUE US ON LOWE R EXTREMITIES. BLACK SPOT PRESENT Y COMPARISON: None TECHNIQUE: Santos scale, color Doppler images of the areas of clinical concern at the rig ht foot and left anterior calf were obtained. FINDINGS: Left anterior calf: Subcutaneous soft tissue edema and small amount of fluid tracking throu gh the subcutaneous soft tissues. No focal mass or collection. Right calf: Subcutaneous soft tissue edema and small amount of fluid tracking through the subcutaneous soft tissues. No focal mass or collection. Dorsal right foot: Subcutaneous soft tissue swelling. Small amount of fluid tracking through the subcutaneous soft tissues. Approximately 6 mm more focal areas of fluid with e chogenic components. IMPRESSION: Left calf soft tissues with luz elena a and small amount of fluid tracking through the subcutaneous soft tissues. No focal mass or collection. Right foot subcutaneous soft tissue swelling wit h approximately 6 mm more focal areas of fluid with echogenic components, poss ibly representing small developing abscesses. No drainable fluid collections. Signed by: Dipak Talbot MD on 11/24/2018 5:02 PM Dictated By: DIPAK Emmanuel MD 01 Transcribed By: BRENDON on 11/24/181701 COPY TO: KATIE BOWEN MD Blood Culture 2018-11-22 19:49:00* Test Item Value Reference Range Interpretation Comments Blood Culture (test code = 49817578) NO GROWTH AFTER 5 DAYS, FINAL REPORT [facility] HospitalBlood Mgmwslu0613-12-04 19:49:00* Test Item Value Reference Range Interpretation Comments Blood Culture (test code = 43512989) NO GROWTH AFTER 5 DAYS, FINAL REPORT [facility] HospitalUS IKDZI0564-36-99 08:05:00 [place] [address] Patient Name: ROSA ISELA BENITEZ MR #: [id number] : Age/Sex: 48/F Req #: [id number] Adm Physician: PARMINDER NARVAEZ MD Ordered by: PARMINDER NARVAEZ MD Report #: [id number] Location: MED/SURG2 Room/Bed: [facility] Procedure: [id number] US/US LIVER Exam Date: 11/21/18 Exam Time: 07 REPORT STATUS: Signed Right upper q uadrant ultrasound History: abnormal liver function tests Comparison: 04/10/2018 Findings: The liver demonstrates increased background echot exture. The hepatic contour appears unremarkable. No hepatic mass or intrahep atic biliary dilation is seen. The patient is status post cholecystectomy. N o sonographic Cid's sign. Common bile duct measures 6.8mm. The main portal vein appears patent and measures 10 mm in diameter. The pancreas is unremarka ble as visualized. The tail portion of the pancreas is not well seen, likely d ue to overlying bowel gas. The right kidney demonstrates no evidence of hydro nephrosis, calculus, or mass. The right kidney measures 10.0 x 4.2 x 3.7 cm. Impression: 1. Diffuse hepatic steatosis. 2. Status post cholecyst ectomy. Signed by: Juan Carlos Gibbons MD on 11/21/2018 8:09 AM Dic tated By: JUAN CARLOS GIBBONS MD 8 COPY TO: JING NARVAEZ MD Magnesium Vzuas3901-61-32 06:02:00* Test Item Value Reference Range Interpretation Comments Magnesium Level (test code = 52910-6) 2.1 1.3-2.1 [facility] XRAY LINE PVXZMOGZY5872-84-35 17:01:00 [place] [id number] [place] [address] Patient Name: ROSA ISELA BENITEZ MR #: [id number] : 1970 Age/Sex: 48/F Req #: [id number] Adm Physician: PARMINDER NARVAEZ MD Ordered by: PARMINDER NARVAEZ MD Report #: [id number] Location: MED/SURG2 Room/Bed: [facility] Procedure: [id number] DX/CHEST XRAY LINE PLACEMENT Exam Date: 11/18/18 Ex am Time: 1636 REPORT STATUS: Signed Examination: Single AP view of the chest. COMPARISON: None. INDICA TION: Line placement DISCUSSION: Lines/tubes: Right PICC line wi th tip over the SVC. Lungs: The lungs are well inflated and clear. No pneu monia or pulmonary edema. Pleura: No pleural effusion or pneumothorax. Heart and mediastinum: The heart and the mediastinum are unremarkable. B ones and soft tissues: No acute bony abnormalities. IMPRESSION: 1. Right PICC line with tip over the SVC. Signed by: Dr. Zuri Otto M.D. on 11/18/2018 5:02 PM Dictated By: ZURI OTTO MD [facility] y Signed By: ZURI OTTO MD on 11/18/181701 Transcribed By: BRENDON on 1701 COPY TO: PARMINDER NARVAEZ MD CT FOOT RIGHT DK3750-79-87 20:35:00 [place] [address] Patient Name: ROSA ISELA BENITEZ MR #: [id number] : 1970 Age/Sex: 48/F Req #: [id number] Adm Physician: Ordered by: DIANNE BUSH MD Report #: [id number] Location: ER Room/Bed: Procedure: CT/CT FOOT RIGHT WO Exam Date: 11/17/18 Exam Time : 2002 REPORT STATUS: Signed CT scan of the RIGHT FOOT, WITHOUT injected contrast. TECHNIQUE: Standard d epartmental protocols were used. Sagittal and coronal reformatted images were obtained. HISTORY: Lupus flare, infection, swelling, ulcers COMPARISON : Right foot radiographs November 17, 2018. FINDINGS: Bones: No acute di splaced fracture. No aggressive osseous lesion or osseous erosion. Joints : No malalignment. Soft tissues: Severe soft tissue edema, most not ably the dorsal soft tissues. Ill-defined hyperdensity within the dorsal soft tissue edema may reflect evolving contusion/ill-defined hematoma. IMPR ESSION: Severe soft tissue edema, most notably the dorsal aspect of the foot with possible central evolving contusion/ill-defined hematoma. Signed by: Dr. Ritesh Mckeon D.O., M.M.M. on 11/17/2018 8:51 PM Dictated By: RITESH SCHMIDT DO 50 Transcribed By : BRENDON on 11/17/182050 COPY TO: DIANNE BUSH MD Lactic Acid Wwsme0674-79-27 19:20:00* Test Item Value Reference Range Interpretation Comments Lactic Acid Level (test code = Lactic Acid Level) 17.3 4.5- 19.8 [facility] HospitalLactic Acid Xanmq8993-09-52 19:20:00* Test Item Value Reference Range Interpretation Comments Lactic Acid Level (test code = Lactic Acid Level) 17.3 4.5- 19.8 [facility] HospitalFOOT RIGHT RSMGYLFC4731-74-67 18:47:00 [facility] [address] [place] [address] Patient Name: ROSA ISELA BENITEZ MR #: [id number] : Age/Sex: 48/F Req #: [id number] Adm Physician: Ordered by: DIANNE BUSH MD Report #: [id number] Location: ER Room/Bed: Procedure: 73 DX/FOOT RIGHT COMPLETE Exam Date: 11/17/18 Exam T omega: 1822 REPORT STATUS: Signed RIGHT FOOT - 3 Image(s) HISTORY: Infection, ulcers edema COMPARI SON: None available. FINDINGS: Bones: No acute displaced fracture. No aggressive osseous lesion. Joints: Osseous alignment is with in normal limits and the joint spaces are well-maintained. Soft tissues: Marked soft tissue prominence, most notably the dorsal aspect of the foot. IMPRESSION: 1. Severe soft tissue edema. 2. No radiographic evidence of osteomyelitis. Signed by: Dr. Ritesh Mckeon D.O., M.M.M. on 11/17/2018 6:49 PM Dictated By: RITESH MCKEON DO 48 Transcribed By: BRENDON on 11/17/181848 COPY TO: DIANNE BUSH MD Bedside Zrimxla0532-88-57 07:45:00* Test Item Value Reference Range Interpretation Comments Bedside Glucose (test code = 62599-0) 137 70-120 H Meter ID: [id number] [facility]Blood [facility] 2018-04-14 16:36:00* Test Item Value Reference Range Interpretation Comments Blood Culture (test code = 64299661) NO GROWTH AFTER 5 DAYS, FINAL REPORT [facility] Fdwaz5157-97-54 05:18:00* Test Item Value Reference Range Interpretation Comments Sodium Level (test code = 2951-2) 136 136-145 [facility] HospitalPotassium Sbqms6234-80-50 05:18:00* Test Item Value Reference Range Interpretation Comments Potassium Level (test code = 2823-3) 3.3 3.5-5.1 L [facility] HospitalChloride Npbqe1836-13-38 05:18:00* Test Item Value Reference Range Interpretation Comments Chloride Level (test code = 2075-0) 99 98-107 [facility] HospitalCarbon Dioxide Hpddi2958-27-35 05:18:00* Test Item Value Reference Range Interpretation Comments Carbon Dioxide Level (test code = 2028-9) 24 - [facility] HospitalAnion Gjl4574-87-31 05:18:00* Test Item Value Reference Range Interpretation Comments Anion Gap (test code = 00254-3) 16.3 8-16 H [facility] HospitalBlood Urea Bfdkbpzq1599-38-26 05:18:00* Test Item Value Reference Range Interpretation Comments Blood Urea Nitrogen (test code = 3094-0) 12 11-10 [facility] HospitalCreatinine2018-12-26 05:18:00* Test Item Value Reference Range Interpretation Comments Creatinine (test code = 2160-0) 0.78 0.57-1.11 [facility] HospitalBUN/Creatinine Mfvaq7168-23-29 05:18:00* Test Item Value Reference Range Interpretation Comments BUN/Creatinine Ratio (test code = 3097-3) 15 10-10 [facility] HospitalEstimat Glomerular Filtration Rate 2018-04-12 05:18:00* Test Item Value Reference Range Interpretation Comments Estimat Glomerular Filtration Rate (test code = 242372531) > 60 >60 Ranges were taken from the National Kidney Disease Education Program and the [facility] Kidney Foundation literature.Reference ranges:60 or greater: Wtdrnj48-98 ( for 3 consecutive months): Chronic kidney disease 15 or less: Kidney failureMethodist Stone [facility] HospitalGlucose Qiega5099-12-51 05:18:00* Test Item Value Reference Range Interpretation Comments Glucose Level (test code = TFK3480) 216 74-118 H [facility] HospitalCalcium Pyokt4357-19-76 05:18:00* Test Item Value Reference Range Interpretation Comments Calcium Level (test code = 45011-4) 9.3 8.4-10.2 [facility] HospitalTotal Kwasohxgr6852-43-19 05:18:00* Test Item Value Reference Range Interpretation Comments Total Bilirubin (test code = 1975-2) 0.4 0.2-1.2 [facility] HospitalAspartate Amino Transf (AST/SGOT) 2018-04-12 05:18:00* Test Item Value Reference Range Interpretation Comments Aspartate Amino Transf (AST/SGOT) (test code = Aspartate Amino Transf (AST/SGOT)) 24 5-34 [facility] HospitalAlanine Aminotransferase (ALT/SGPT) 2018-04-12 05:18:00* Test Item Value Reference Range Interpretation Comments Alanine Aminotransferase (ALT/SGPT) (test code = 1742-6) 114 0-55 H [facility] Yhsaceh4196-27-52 05:18:00* Test Item Value Reference Range Interpretation Comments Total Protein (test code = 2885-2) 6.8 6.5-8.1 [facility] HospitalAlbumin2018-12-26 05:18:00* Test Item Value Reference Range Interpretation Comments Albumin (test code = 1751-7) 2.9 3.5-5.0 L [facility] HospitalGlobulin2018-12-26 05:18:00* Test Item Value Reference Range Interpretation Comments Globulin (test code = 60672-0) 3.9 2.3-3.5 H [facility] HospitalAlbumin/Globulin Mksqz6424-99-92 05:18:00 * Test Item Value Reference Range Interpretation Comments Albumin/Globulin Ratio (test code = 1759-0) 0.7 0.8-2.0 L [facility] HospitalAlkaline Uzpixqyrikc2552-99-73 05:18:00* Test Item Value Reference Range Interpretation Comments Alkaline Phosphatase (test code = 6768-6) 98 40-150 [facility] HospitalTriglycerides Fbpge2648-59-59 05:18:00* Test Item Value Reference Range Interpretation Comments Triglycerides Level (test code = 2571-8) 133 0-149 [facility] HospitalCholesterol Wojpv0064-42-31 05:18:00* Test Item Value Reference Range Interpretation Comments Cholesterol Level (test code = 2093-3) 220 0-199 H Less than 200 mg/dL Low Kcst141 - 239 mg/dL Borderline Ycgj108 m g/dl and greater High Risk [facility] HospitalLDL Jivynqsmgul4574-63-99 05:18:00* Test Item Value Reference Range Interpretation Comments LDL Cholesterol (test code = 2089-1) 139 60-130 H [facility] Odpcnkytzeb8875-78-54 05:18:00* Test Item Value Reference Range Interpretation Comments HDL Cholesterol (test code = 2085-9) 54 40-60 [facility] HospitalCholesterol/HDL Empyi9552-49-26 05:18:00 * Test Item Value Reference Range Interpretation Comments Cholesterol/HDL Ratio (test code = 9830-1) 4.1 3.0-3.6 H [facility] HospitalTriglycerides Flzya8993-16-94 05:18:00* Test Item Value Reference Range Interpretation Comments Triglycerides Level (test code = 2571-8) 133 0-149 [facility] HospitalCholesterol Luytk6294-20-99 05:18:00* Test Item Value Reference Range Interpretation Comments Cholesterol Level (test code = 2093-3) 220 0-199 H Less than 200 mg/dL Low Mwzo823 - 239 mg/dL Borderline Nqex413 m g/dl and greater High Risk [facility] Tagbfdyjqwy1425-78-36 05:18:00* Test Item Value Reference Range Interpretation Comments LDL Cholesterol (test code = 2089-1) 139 60-130 H [facility] Bxlgevwhjvx1475-91-66 05:18:00* Test Item Value Reference Range Interpretation Comments HDL Cholesterol (test code = 2085-9) 54 40-60 [facility] HospitalCholesterol/HDL Qrnqy2057-36-68 05:18:00 * Test Item Value Reference Range Interpretation Comments Cholesterol/HDL Ratio (test code = 9830-1) 4.1 3.0-3.6 H [facility] HospitalTriglycerides Enbjo5899-56-09 05:18:00* Test Item Value Reference Range Interpretation Comments Triglycerides Level (test code = 2571-8) 133 0-149 [facility] HospitalCholesterol Niqee9621-69-11 05:18:00* Test Item Value Reference Range Interpretation Comments Cholesterol Level (test code = 2093-3) 220 0-199 H Less than 200 mg/dL Low Sfsw726 - 239 mg/dL Borderline Fnce779 m g/dl and greater High Risk [facility] HospitalLDL Tjuraclsems4174-47-04 05:18:00* Test Item Value Reference Range Interpretation Comments LDL Cholesterol (test code = 2089-1) 139 60-130 H [facility]HDL Qvtfkszhkrw1321-73-70 05:18:00* Test Item Value Reference Range Interpretation Comments HDL Cholesterol (test code = 2085-9) 54 40-60 [facility] HospitalCholesterol/HDL Dsykq4986-18-52 05:18:00 * Test Item Value Reference Range Interpretation Comments Cholesterol/HDL Ratio (test code = 9830-1) 4.1 3.0-3.6 H [facility] HospitalWhite Blood Gdrkm8805-18-28 04:52:00* Test Item Value Reference Range Interpretation Comments White Blood Count (test code = 6690-2) 12.93 4.8-10.8 H [facility] HospitalRed Blood Vwdgl0756-71-46 04:52:00* Test Item Value Reference Range Interpretation Comments Red Blood Count (test code = 789-8) 3.90 3.6-5.1 [facility] HospitalHemoglobin2018-12-26 04:52:00* Test Item Value Reference Range Interpretation Comments Hemoglobin (test code = 07391-7) 12.6 12.0-16.0 [facility] HospitalHematocrit2018-12-26 04:52:00* Test Item Value Reference Range Interpretation Comments Hematocrit (test code = 4544-3) 37.1 34.2-44.1 [facility] HospitalMean Corpuscular Evymhk5600-78-26 04:52:00* Test Item Value Reference Range Interpretation Comments Mean Corpuscular Volume (test code = 787-2) 95.1 81-99 [facility] HospitalMean Corpuscular Nkwoknbedi0468-39-60 04:52:00* Test Item Value Reference Range Interpretation Comments Mean Corpuscular Hemoglobin (test code = 785-6) 32.3 28-32 H [facility] HospitalMean Corpuscular Hemoglobin Concent 2018-04-12 04:52:00* Test Item Value Reference Range Interpretation Comments Mean Corpuscular Hemoglobin Concent (test code = 786-4) 34.0 31-35 [facility] HospitalRed Cell Distribution Whjiy1271-33-88 04:52:00* Test Item Value Reference Range Interpretation Comments Red Cell Distribution Width (test code = 11543-7) 14.2 11.7 -14.4 [facility] HospitalPlatelet Aagpy4945-18-96 04:52:00* Test Item Value Reference Range Interpretation Comments Platelet Count (test code = 777-3) 413 140-360 H [facility] HospitalNeutrophils (%) (Auto)2018-04-12 04:52:00 * Test Item Value Reference Range Interpretation Comments Neutrophils (%) (Auto) (test code = 10089-9) 88.2 38.7-80.0 H [facility] HospitalLymphocytes (%) (Auto)2018-04-12 04:52:00 * Test Item Value Reference Range Interpretation Comments Lymphocytes (%) (Auto) (test code = 736-9) 8.7 18.0-39.1 L [facility] HospitalMonocytes (%) (Auto)2018-04-12 04:52:00* Test Item Value Reference Range Interpretation Comments Monocytes (%) (Auto) (test code = 5905-5) 1.2 4.4-11.3 L [facility] HospitalEosinophils (%) (Auto)2018-04-12 04:52:00 * Test Item Value Reference Range Interpretation Comments Eosinophils (%) (Auto) (test code = 713-8) 0.0 0.0-6.0 [facility] HospitalBasophils (%) (Auto)2018-04-12 04:52:00* Test Item Value Reference Range Interpretation Comments Basophils (%) (Auto) (test code = 706-2) 0.2 0.0-1.0 [facility] HospitalIM GRANULOCYTES %2018-04-12 04:52:00* Test Item Value Reference Range Interpretation Comments IM GRANULOCYTES % (test code = IM GRANULOCYTES %) 1.7 0.0- 1.0 H [facility] HospitalNeutrophils # (Auto)2018-04-12 04:52:00* Test Item Value Reference Range Interpretation Comments Neutrophils # (Auto) (test code = 751-8) 11.4 2.1-6.9 H [facility] HospitalLymphocytes # (Auto)2018-04-12 04:52:00* Test Item Value Reference Range Interpretation Comments Lymphocytes # (Auto) (test code = 39621-9) 1.1 1.0-3.2 [facility] HospitalMonocytes # (Auto)2018-04-12 04:52:00* Test Item Value Reference Range Interpretation Comments Monocytes # (Auto) (test code = 742-7) 0.2 0.2-0.8 [facility] HospitalEosinophils # (Auto)2018-04-12 04:52:00* Test Item Value Reference Range Interpretation Comments Eosinophils # (Auto) (test code = 711-2) 0.0 0.0-0.4 [facility] HospitalBasophils # (Auto)2018-04-12 04:52:00* Test Item Value Reference Range Interpretation Comments Basophils # (Auto) (test code = 704-7) 0.0 0.0-0.1 [facility] HospitalAbsolute Immature Granulocyte (auto 2018-04-12 04:52:00* Test Item Value Reference Range Interpretation Comments Absolute Immature Granulocyte (auto (anita t code = Absolute Immature Granulocyte (auto) 0.22 0-0.1 H [facility]CHEST X[facility] LINE HUCISRTDB4973-83-57 13:49:00 [facility] [address] [address] Patient Name: ROSA ISELA BENITEZ MR #: [id number] : 1970 Age/Sex: 48/F Req #: [id number] Adm Physician: PARMINDER NARVAEZ MD Ordered by: KATIE BOWEN MD Report #: [id number] Location: [facility] Room/Bed: [facility] Procedure: [id number] DX/CHEST XRAY LINE PLACEMENT Exam Date: 04/11/18 Ex am Time: 1330 REPORT STATUS: Signed EXAMINATION: CHEST XRAY LINE PLACEMENT INDICATION: PICC L INE PLACEMENT [id number] Y COMPARISON: 10/08/2017 FIN DINGS: AP view TUBES and LINES: Right PICC in place with tip overlying SVC. LUNGS: Low lung volumes. Mild central vascular congestion. Bibasi lar subsegmental atelectasis. PLEURA: No pleural effusion or pneumothora x. HEART AND MEDIASTINUM: The cardiomediastinal silhouette is prominent. BONES AND SOFT TISSUES: No acute osseous lesion. Soft tissues are un remarkable. UPPER ABDOMEN: No free air under the diaphragm. IMPRES LETICIA: Status post right PICC placement with tip overlying mid to lower SVC. N o visible pneumothorax. Mild central vascular congestion. Subsegmental at electasis. Bibasilar Signed by: Dr. Kimani Conley MD on 04/11/2018 1:50 PM Dictated By: KIMANI CONLEY MD 135 Transcribed By: BRENDON on 04/11/181349 COPY TO: KATIE BOWEN MD Hemoglobin A1c Ljnaruq2880-23-47 07:34:00* Test Item Value Reference Range Interpretation Comments Hemoglobin A1c Percent (test code = Hemoglobin A1c Percent) 7.0 4.0-7.0 [facility] HospitalHemoglobin A1c Iyrfdac5573-22-88 07:34:00 * Test Item Value Reference Range Interpretation Comments Hemoglobin A1c Percent (test code = Hemoglobin A1c Percent) 7.0 4.0-7.0 [facility] HospitalHemoglobin A1c Dgjngwe3359-88-04 07:34:00 * Test Item Value Reference Range Interpretation Comments Hemoglobin A1c Percent (test code = Hemoglobin A1c Percent) 7.0 4.0-7.0 [facility] A IgM Ivzmgfao6537-83-01 06:27:00* Test Item Value Reference Range Interpretation Comments Hepatitis A IgM Antibody (test code = 81622-0) Negative Negativ e [facility] B Surface Fselpoy7926-50-05 06:27:00* Test Item Value Reference Range Interpretation Comments Hepatitis B Surface Antigen (test code = 5196-1) Negative Negat damien [facility] B Core IgM Bhucyksc2705-14-80 06:27:00* Test Item Value Reference Range Interpretation Comments Hepatitis B Core IgM Antibody (test code = 43086-1) Negative Ne gative [facility] C Dxahwcuw9176-13-02 06:27:00* Test Item Value Reference Range Interpretation Comments Hepatitis C Antibody (test code = 31350-6) 0.1 0.0-0.9 Negative: < 0.8 Indeterminate: 0.8 - 0.9 Positive: > 0.9 The CDC recommends that a positive HCV antibody result be followed up with a HCV Nucleic Acid Amplification test (943598).Performed at: [facility] [address] [place] [address] [id number] Director: Prasanna Mishra MD, Phone: [phone]. Joseph Medical Center A IgM Antibody 2018-04-11 06:27:00* Test Item Value Reference Range Interpretation Comments Hepatitis A IgM Antibody (test code = 20120-6) Negative Negativ e [facility] B Surface Itylluq5883-45-37 06:27:00* Test Item Value Reference Range Interpretation Comments Hepatitis B Surface Antigen (test code = 5196-1) Negative Negat damien [facility] B Core IgM Oungzrzn9882-39-06 06:27:00* Test Item Value Reference Range Interpretation Comments Hepatitis B Core IgM Antibody (test code = 83357-3) Negative Ne [facility] C Ypeihosc3298-44-97 06:27:00* Test Item Value Reference Range Interpretation Comments Hepatitis C Antibody (test code = 32746-4) 0.1 0.0-0.9 Negative: < 0.8 Indeterminate: 0.8 - 0.9 Positive: > 0.9 The CDC recommends that a positive HCV antibody result be followed up with a HCV Nucleic Acid Amplification test (320009).Performed at: [facility] [id number] [place] [address] [id number] Director: Prasanna Mishra MD, Phone: [phone]. Joseph Medical Center A IgM Antibody 2018-04-11 06:27:00* Test Item Value Reference Range Interpretation Comments Hepatitis A IgM Antibody (test code = 53135-8) Negative Negativ e [facility] B Surface Gisdemk8989-32-04 06:27:00* Test Item Value Reference Range Interpretation Comments Hepatitis B Surface Antigen (test code = 5196-1) Negative Negat damien [facility] B Core IgM Bvdhwsia1821-15-01 06:27:00* Test Item Value Reference Range Interpretation Comments Hepatitis B Core IgM Antibody (test code = 11884-0) Negative [facility] Tupxrdgj1303-30-84 06:27:00* Test Item Value Reference Range Interpretation Comments Hepatitis C Antibody (test code = 47300-4) 0.1 0.0-0.9 Negative: < 0.8 Indeterminate: 0.8 - 0.9 Positive: > 0.9 The CDC recommends that a positive HCV antibody result be followed up with a HCV Nucleic Acid Amplification test (793524).Performed at: [facility] [address] [place], [place] [id number] Director: Prasanna Mishra MD, Phone: [phone] [facility]wallUS KGUID7630-60-48 13:19:00 [facility] [address] [place] [address] Patient Name: ROSA ISELA BENITEZ MR #: [id number] : Age/Sex: 48/F Req #: [id number] Adm Physician: PARMINDER NARVAEZ MD Ordered by: IDA BHANDARI MD Report #: [id number] Location: MED/SURG2 Room/Bed: [facility] Procedure: US/US LIVER Exam Date: Exam Time: REPORT STATUS: Signed EXAM: Right upper quadr ant abdominal ultrasound INDICATION: Elevated LFTs COMPARISON: None. TECHNIQUE: Transverse and longitudinal images of the right upper quadrant abd omen were obtained FINDINGS: Liver: Size: Measures 16.8 cm in the right midclavicular line, normal Appearance: Increased echogenicity, smooth co ntour Mass: No focal masses Gallbladder: Status post cholecystectomy. Bile Ducts: Intrahepatic Ducts: No dilatation Extrahepatic Ducts: Common bile duct measures 0.9 cm, no dilatation Pancreas: Visualized portions of the pancreatic head, neck and proximal body are normal. Kidney: The right kidney measures 10 cm without evidence of hydronephrosis or stone. Vesse ls: Aorta: Visualized portions are normal Inferior Vena Cava: Visualized por tions are normal Main Portal Vein: Measures 0.9 cm, normal size with hepatopet al flow. Free Fluid: No ascites. IMPRESSION: Hepatomegaly and hepa tic steatosis. Status post cholecystectomy. Signed by: Dr. Gonzalo jackson MD on 04/10/2018 1:22 PM Dictated By: GONZALO CARLIN MD Electronically Si gned By: GONZALO CARLIN MD on 04/10/18 1322 Transcribed By: BRENDON on 04/10/18 132 2 COPY TO: IDA BHANDRAI MD Urine OAA9045-72-41 19:14:00* Test Item Value Reference Range Interpretation Comments Urine WBC (test code = 5821-4) 0-5 0-5 [facility] HospitalUrine NNE2351-20-51 19:14:00* Test Item Value Reference Range Interpretation Comments Urine RBC (test code = 28344-8) 0-5 0-5 [facility] HospitalUrine Rvpdhdmp3400-66-35 19:14:00* Test Item Value Reference Range Interpretation Comments Urine Bacteria (test code = 35225-1) NONE NONE [facility] HospitalUrine Epithelial Fjvqf4161-16-13 19:14:00 * Test Item Value Reference Range Interpretation Comments Urine Epithelial Cells (test code = 09878-3) MODERATE NONE [facility] HospitalUrine GIX5794-56-86 19:14:00* Test Item Value Reference Range Interpretation Comments Urine WBC (test code = 5821-4) 0-5 0-5 [facility] HospitalUrine HAX9778-58-16 19:14:00* Test Item Value Reference Range Interpretation Comments Urine RBC (test code = 66167-4) 0-5 0-5 [facility] HospitalUrine Phmpyzxm5758-91-57 19:14:00* Test Item Value Reference Range Interpretation Comments Urine Bacteria (test code = 81969-0) NONE NONE [facility] HospitalUrine Epithelial Elfvj3057-36-15 19:14:00 * Test Item Value Reference Range Interpretation Comments Urine Epithelial Cells (test code = 80709-8) MODERATE NONE [facility] HospitalUrine Triwp3821-33-70 19:04:00* Test Item Value Reference Range Interpretation Comments Urine Color (test code = 5778-6) YELLOW YELLOW [facility] HospitalUrine Ossfgui0575-35-46 19:04:00* Test Item Value Reference Range Interpretation Comments Urine Clarity (test code = 22541-3) CLEAR CLEAR [facility] Specific Xjlgukx7878-92-18 19:04:00 * Test Item Value Reference Range Interpretation Comments Urine Specific [place] (test code = 5811-5) 1.010 1.010-1.02 5 [facility] HospitalUrine qB7365-71-57 19:04:00* Test Item Value Reference Range Interpretation Comments Urine pH (test code = 04497-2) 6.5 5-7 [facility] Leukocyte Guikyrgy3113-85-20 19:04:00* Test Item Value Reference Range Interpretation Comments Urine Leukocyte Esterase (test code = 5799-2) NEGATIVE NEGATIVE [facility] Qyopbup2715-01-60 19:04:00* Test Item Value Reference Range Interpretation Comments Urine Nitrite (test code = 33173-2) NEGATIVE NEGATIVE [facility] Xpyhlfo6566-09-91 19:04:00* Test Item Value Reference Range Interpretation Comments Urine Protein (test code = 5804-0) NEGATIVE NEGATIVE [facility] Glucose (UA)2018-04-09 19:04:00* Test Item Value Reference Range Interpretation Comments Urine Glucose (UA) (test code = 2349-9) NEGATIVE NEGATIVE [facility] HospitalUrine Jsycqfv5240-45-71 19:04:00* Test Item Value Reference Range Interpretation Comments Urine Ketones (test code = 50243-0) NEGATIVE NEGATIVE [facility] Sjlltbvceyuz0602-31-02 19:04:00* Test Item Value Reference Range Interpretation Comments Urine Urobilinogen (test code = 76636-5) 0.2 0.2-1 [facility] HospitalUrine Xlpgzsvlc0777-03-69 19:04:00* Test Item Value Reference Range Interpretation Comments Urine Bilirubin (test code = 1978-6) NEGATIVE NEGATIVE [facility] HospitalUrine Rmovv5054-81-33 19:04:00* Test Item Value Reference Range Interpretation Comments Urine Blood (test code = 06029-4) NEGATIVE NEGATIVE [facility] HospitalUrine Aezjt4052-97-47 19:04:00* Test Item Value Reference Range Interpretation Comments Urine Color (test code = 5778-6) YELLOW YELLOW [facility] HospitalUrine Jgzkrua9056-45-28 19:04:00* Test Item Value Reference Range Interpretation Comments Urine Clarity (test code = 44733-8) CLEAR CLEAR [facility] HospitalU[facility] Specific Sqmwjnl8110-39-44 19:04:00 * Test Item Value Reference Range Interpretation Comments Urine Specific [place] (test code = 5811-5) 1.010 1.010-1.02 5 [facility] HospitalUrine pW4475-64-97 19:04:00* Test Item Value Reference Range Interpretation Comments Urine pH (test code = 82380-0) 6.5 5-7 [facility] HospitalU[facility] Leukocyte Obxvigmp5781-83-00 19:04:00* Test Item Value Reference Range Interpretation Comments Urine Leukocyte Esterase (test code = 5799-2) NEGATIVE NEGATIVE [facility] HospitalUrine Xdilvug5851-92-03 19:04:00* Test Item Value Reference Range Interpretation Comments Urine Nitrite (test code = 20034-7) NEGATIVE NEGATIVE [facility] HospitalUrine Ixelopb4840-39-78 19:04:00* Test Item Value Reference Range Interpretation Comments Urine Protein (test code = 5804-0) NEGATIVE NEGATIVE [facility] HospitalUrine Glucose (UA)2018-04-09 19:04:00* Test Item Value Reference Range Interpretation Comments Urine Glucose (UA) (test code = 2349-9) NEGATIVE NEGATIVE [facility] HospitalUrine Bteitwk2453-23-40 19:04:00* Test Item Value Reference Range Interpretation Comments Urine Ketones (test code = 32364-2) NEGATIVE NEGATIVE [facility] HospitalUrine Lxkxxwzelkre9985-97-54 19:04:00* Test Item Value Reference Range Interpretation Comments Urine Urobilinogen (test code = 06582-1) 0.2 0.2-1 [facility] HospitalUrine Ckpjeeedt6153-20-71 19:04:00* Test Item Value Reference Range Interpretation Comments Urine Bilirubin (test code = 1978-6) NEGATIVE NEGATIVE [facility] HospitalUrine Ppkiw5178-84-83 19:04:00* Test Item Value Reference Range Interpretation Comments Urine Blood (test code = 56613-3) NEGATIVE NEGATIVE [facility] HospitalLactic Acid Wwmxd7493-08-13 16:51:00* Test Item Value Reference Range Interpretation Comments Lactic Acid Level (test code = Lactic Acid Level) 12.6 4.5- 19.8 [facility] HospitalCreatine Kinase MQ1400-46-98 16:32:00* Test Item Value Reference Range Interpretation Comments Creatine Kinase MB (test code = 66847-6) 1.70 0-5.0 [facility] HospitalTroponin D7861-35-25 16:32:00* Test Item Value Reference Range Interpretation Comments Troponin I (test code = LII4734) 0.197 0-0.300 [facility] HospitalCreatine Kinase GJ9795-19-40 16:32:00* Test Item Value Reference Range Interpretation Comments Creatine Kinase MB (test code = 39165-9) 1.70 0-5.0 [facility] HospitalTropon R6615-70-51 16:32:00* Test Item Value Reference Range Interpretation Comments Troponin I (test code = QEW4869) 0.197 0-0.300 [facility] HospitalCreatine Lbdhjx6320-31-24 16:25:00* Test Item Value Reference Range Interpretation Comments Creatine Kinase (test code = 2157-6) 32 29-168 [facility] HospitalLipase2018-12-23 16:25:00* Test Item Value Reference Range Interpretation Comments Lipase (test code = 3040-3) 9 8-78 [facility] HospitalCreatine Lqhnzz7929-89-48 16:25:00* Test Item Value Reference Range Interpretation Comments Creatine Kinase (test code = 2157-6) 32 29-168 [facility] HospitalLipase2018-12-23 16:25:00* Test Item Value Reference Range Interpretation Comments Lipase (test code = 3040-3) [facility] HospitalLipase2018-12-23 16:25:00* Test Item Value Reference Range Interpretation Comments Lipase (test code = 3040-3) [facility] HospitalActivated Partial Thromboplast Time 2018-04-09 16:14:00* Test Item Value Reference Range Interpretation Comments Activated Partial Thromboplast Time (test code = 00913-5) 29.1 23.8-35.5 [facility] HospitalActivated Partial Thromboplast Time 2018-04-09 16:14:00* Test Item Value Reference Range Interpretation Comments Activated Partial Thromboplast Time (test code = 08281-6) 29.1 23.8-35.5 [facility] HospitalActivated Partial Thromboplast Time 2018-04-09 16:14:00* Test Item Value Reference Range Interpretation Comments Activated Partial Thromboplast Time (test code = 54522-4) 29.1 23.8-35.5 [facility] HospitalProthrombin Enjg5308-65-00 16:13:00* Test Item Value Reference Range Interpretation Comments Prothrombin Time (test code = 5902-2) 12.5 11.9-14.5 [facility] HospitalProthromb Time International Ratio 2018-04-09 16:13:00* Test Item Value Reference Range Interpretation Comments Prothromb Time International Ratio (test code = 6301-6) 0.86 Oral Anticoagulant Therapy INR Values:1. Low Intensity Therapy 1.5 - 2.02 . Moderate Intensity Therapy 2.0 - 3.03. High Intensity Therapy(1) 2.5 - 3. 54. High Intensity Therapy(2) 3.0 - 4.05. Panic Value INR > 5.0 [facility] HospitalProthrombin Arkf1892-03-36 16:13:00* Test Item Value Reference Range Interpretation Comments Prothrombin Time (test code = 5902-2) 12.5 11.9-14.5 [facility] HospitalProthromb Time International Ratio 2018-04-09 16:13:00* Test Item Value Reference Range Interpretation Comments Prothromb Time International Ratio (test code = 6301-6) 0.86 Oral Anticoagulant Therapy INR Values:1. Low Intensity Therapy 1.5 - 2.02 . Moderate Intensity Therapy 2.0 - 3.03. High Intensity Therapy(1) 2.5 - 3. 54. High Intensity Therapy(2) 3.0 - 4.05. Panic Value INR > 5.0 [facility] HospitalProthrombin Rdoe0845-54-50 16:13:00* Test Item Value Reference Range Interpretation Comments Prothrombin Time (test code = 5902-2) 12.5 11.9-14.5 [facility] HospitalProthromb Time International Ratio 2018-04-09 16:13:00* Test Item Value Reference Range Interpretation Comments Prothromb Time International Ratio (test code = 6301-6) 0.86 Oral Anticoagulant Therapy INR Values:1. Low Intensity Therapy 1.5 - 2.02 . Moderate Intensity Therapy 2.0 - 3.03. High Intensity Therapy(1) 2.5 - 3. 54. High Intensity Therapy(2) 3.0 - 4.05. Panic Value INR > 5.0 [facility] HospitalBlood Ffxwjfy9072-95-77 04:17:00* Test Item Value Reference Range Interpretation Comments Blood Culture (test code = 89873070) NO GROWTH AFTER 5 DAYS, FINAL REPORT [facility] HospitalBedside Ygxtvqu7949-90-88 20:11:00* Test Item Value Reference Range Interpretation Comments Bedside Glucose (test code = 66943-4) 135 70-120 H Meter ID: [id number] Scott and White Medical Center – FriscoDifferential Total Cells Ljebdin5861-51-13 08:02:00* Test Item Value Reference Range Interpretation Comments Differential Total Cells Counted (test code = Differgeoff tial Total Cells Counted) 100 [facility] HospitalNeutrophils % (Manual)2017-10-10 08:02:00 * Test Item Value Reference Range Interpretation Comments Neutrophils % (Manual) (test code = 92903-7) 52 40-74 [facility] HospitalLymphocytes % (Manual)2017-10-10 08:02:00 * Test Item Value Reference Range Interpretation Comments Lymphocytes % (Manual) (test code = 737-7) 29 19-48 [facility] HospitalMonocytes % (Manual)2017-10-10 08:02:00* Test Item Value Reference Range Interpretation Comments Monocytes % (Manual) (test code = 744-3) 9 3.4-9.0 [facility] HospitalEosinophils % (Manual)2017-10-10 08:02:00 * Test Item Value Reference Range Interpretation Comments Eosinophils % (Manual) (test code = 714-6) 2 0-7 [facility] HospitalMetamyelocytes %2017-10-10 08:02:00* Test Item Value Reference Range Interpretation Comments Metamyelocytes % (test code = 740-1) 3 0-0 H [facility] HospitalMyelocytes %2017-10-10 08:02:00* Test Item Value Reference Range Interpretation Comments Myelocytes % (test code = 749-2) 5 0-0 H [facility] HospitalPlatelet Caffoflb7062-96-17 08:02:00* Test Item Value Reference Range Interpretation Comments Platelet Estimate (test code = 50438-8) ADEQUATE [facility] HospitalPlatelet Morphology Tenmpre3354-30-74 08:02:00* Test Item Value Reference Range Interpretation Comments Platelet Morphology Comment (test code = 63821-7) NORMAL [facility] HospitalRed Cell Morphology Xducvnm0797-02-84 08:02:00* Test Item Value Reference Range Interpretation Comments Red Cell Morphology Comment (test code = 6742-1) NORMAL [facility] HospitalDifferential Total Cells Counted 2017-10-10 08:02:00* Test Item Value Reference Range Interpretation Comments Differential Total Cells Counted (test code = Differgeoff tial Total Cells Counted) 100 [facility] HospitalNeutrophils % (Manual)2017-10-10 08:02:00 * Test Item Value Reference Range Interpretation Comments Neutrophils % (Manual) (test code = 02617-5) 52 40-74 [facility] HospitalLymphocytes % (Manual)2017-10-10 08:02:00 * Test Item Value Reference Range Interpretation Comments Lymphocytes % (Manual) (test code = 737-7) 29 19-48 [facility] HospitalMonocytes % (Manual)2017-10-10 08:02:00* Test Item Value Reference Range Interpretation Comments Monocytes % (Manual) (test code = 744-3) 9 3.4-9.0 [facility] HospitalEosinophils % (Manual)2017-10-10 08:02:00 * Test Item Value Reference Range Interpretation Comments Eosinophils % (Manual) (test code = 714-6) 2 0-7 [facility] HospitalMetamyelocytes %2017-10-10 08:02:00* Test Item Value Reference Range Interpretation Comments Metamyelocytes % (test code = 740-1) 3 0-0 H [facility] HospitalMyelocytes %2017-10-10 08:02:00* Test Item Value Reference Range Interpretation Comments Myelocytes % (test code = 749-2) 5 0-0 [facility] HospitalPlatelet Zmhyrrsn0259-62-45 08:02:00* Test Item Value Reference Range Interpretation Comments Platelet Estimate (test code = 06493-9) ADEQUATE [facility] HospitalPlatelet Morphology Kmavhce1769-27-84 08:02:00* Test Item Value Reference Range Interpretation Comments Platelet Morphology Comment (test code = 20127-9) NORMAL [facility] HospitalRed Cell Morphology Ofalhnw0461-26-23 08:02:00* Test Item Value Reference Range Interpretation Comments Red Cell Morphology Comment (test code = 6742-1) NORMAL [facility] HospitalWhite Blood Ybznk2527-97-22 07:05:00* Test Item Value Reference Range Interpretation Comments White Blood Count (test code = 6690-2) 13.59 4.8-10.8 H [facility] HospitalRed Blood Nusac5983-21-39 07:05:00* Test Item Value Reference Range Interpretation Comments Red Blood Count (test code = 789-8) 3.76 3.6-5.1 [facility] HospitalHemoglobin2018-06-25 07:05:00* Test Item Value Reference Range Interpretation Comments Hemoglobin (test code = 02335-9) 12.5 12.0-16.0 [facility] HospitalHematocrit2018-06-25 07:05:00* Test Item Value Reference Range Interpretation Comments Hematocrit (test code = 4544-3) 36.4 34.2-44.1 [facility] HospitalMean Corpuscular Mgzalf9580-40-36 07:05:00* Test Item Value Reference Range Interpretation Comments Mean Corpuscular Volume (test code = 787-2) 96.8 81-99 [facility] HospitalMean Corpuscular Qexnqdvtsr2168-14-91 07:05:00* Test Item Value Reference Range Interpretation Comments Mean Corpuscular Hemoglobin (test code = 785-6) 33.2 28-32 H [facility] HospitalMean Corpuscular Hemoglobin Concent 2017-10-10 07:05:00* Test Item Value Reference Range Interpretation Comments Mean Corpuscular Hemoglobin Concent (test code = 786-4) 34.3 31-35 [facility] HospitalRed Cell Distribution Lxsvj6133-22-46 07:05:00* Test Item Value Reference Range Interpretation Comments Red Cell Distribution Width (test code = 19556-9) 14.9 11.7 -14.4 H [facility] HospitalPlatelet Irzai3681-34-29 07:05:00* Test Item Value Reference Range Interpretation Comments Platelet Count (test code = 777-3) 371 140-360 H [facility] HospitalNeutrophils (%) (Auto)2017-10-10 07:05:00 * Test Item Value Reference Range Interpretation Comments Neutrophils (%) (Auto) (test code = 57635-3) 59.8 38.7-80.0 [facility] HospitalLymphocytes (%) (Auto)2017-10-10 07:05:00 * Test Item Value Reference Range Interpretation Comments Lymphocytes (%) (Auto) (test code = 736-9) 25.1 18.0-39.1 [facility] HospitalMonocytes (%) (Auto)2017-10-10 07:05:00* Test Item Value Reference Range Interpretation Comments Monocytes (%) (Auto) (test code = 5905-5) 7.7 4.4-11.3 [facility] HospitalEosinophils (%) (Auto)2017-10-10 07:05:00 * Test Item Value Reference Range Interpretation Comments Eosinophils (%) (Auto) (test code = 713-8) 0.7 0.0-6.0 [facility] HospitalBasophils (%) (Auto)2017-10-10 07:05:00* Test Item Value Reference Range Interpretation Comments Basophils (%) (Auto) (test code = 706-2) 0.9 0.0-1.0 [facility] HospitalIM GRANULOCYTES %2017-10-10 07:05:00* Test Item Value Reference Range Interpretation Comments IM GRANULOCYTES % (test code = IM GRANULOCYTES %) 5.8 0.0- 1.0 H [facility] HospitalNeutrophils # (Auto)2017-10-10 07:05:00* Test Item Value Reference Range Interpretation Comments Neutrophils # (Auto) (test code = 751-8) 8.1 2.1-6.9 H [facility] HospitalLymphocytes # (Auto)2017-10-10 07:05:00* Test Item Value Reference Range Interpretation Comments Lymphocytes # (Auto) (test code = 62549-7) 3.4 1.0-3.2 H [facility] HospitalMonocytes # (Auto)2017-10-10 07:05:00* Test Item Value Reference Range Interpretation Comments Monocytes # (Auto) (test code = 742-7) 1.1 0.2-0.8 H [facility] HospitalEosinophils # (Auto)2017-10-10 07:05:00* Test Item Value Reference Range Interpretation Comments Eosinophils # (Auto) (test code = 711-2) 0.1 0.0-0.4 [facility] HospitalBasophils # (Auto)2017-10-10 07:05:00* Test Item Value Reference Range Interpretation Comments Basophils # (Auto) (test code = 704-7) 0.1 0.0-0.1 [facility] HospitalAbsolute Immature Granulocyte (auto 2017-10-10 07:05:00* Test Item Value Reference Range Interpretation Comments Absolute Immature Granulocyte (auto (anita t code = Absolute Immature Granulocyte (auto) 0.79 0-0.1 [facility] Mjcdx7742-33-45 08:10:00* Test Item Value Reference Range Interpretation Comments Sodium Level (test code = 2951-2) 139 136-145 [facility] HospitalPotassium Zxmvq2506-09-96 08:10:00* Test Item Value Reference Range Interpretation Comments Potassium Level (test code = 2823-3) 3.8 3.5-5.1 [facility] HospitalChloride Hfzul1957-12-05 08:10:00* Test Item Value Reference Range Interpretation Comments Chloride Level (test code = 2075-0) 104 98-107 [facility] HospitalCarbon Dioxide Usnsw1227-00-21 08:10:00* Test Item Value Reference Range Interpretation Comments Carbon Dioxide Level (test code = 2028-9) 24 22- [facility] HospitalAnion Hdw2181-41-21 08:10:00* Test Item Value Reference Range Interpretation Comments Anion Gap (test code = 00734-0) 14.8 8-16 [facility] HospitalBlood Urea Swkkjawn8825-86-99 08:10:00* Test Item Value Reference Range Interpretation Comments Blood Urea Nitrogen (test code = 3094-0) 18 7-26 [facility] HospitalCreatinine2018-06-24 08:10:00* Test Item Value Reference Range Interpretation Comments Creatinine (test code = 2160-0) 0.78 0.57-1.11 [facility] HospitalBUN/Creatinine Qtnhe0254-19-69 08:10:00* Test Item Value Reference Range Interpretation Comments BUN/Creatinine Ratio (test code = 3097-3) 23 6-25 [facility] HospitalEstimat Glomerular Filtration Rate 2017-10-09 08:10:00* Test Item Value Reference Range Interpretation Comments Estimat Glomerular Filtration Rate (test code = 07362-1) 60- >60 Ranges were taken from the National Kidney Disease Education Program and the [facility] literature.Reference ranges:60 or greater: Yrwoue82-76 ( for 3 consecutive months): Chronic kidney disease 15 or less: Kidney failureMethodist [facility] HospitalGlucose Hetvi7007-47-43 08:10:00* Test Item Value Reference Range Interpretation Comments Glucose Level (test code = NHY2805) 125 74-118 H [facility] HospitalCalcium Gdyzm2926-87-80 08:10:00* Test Item Value Reference Range Interpretation Comments Calcium Level (test code = 25440-4) 9.2 8.4-10.2 [facility] HospitalTotal Ogygvzmnd5362-65-19 08:10:00* Test Item Value Reference Range Interpretation Comments Total Bilirubin (test code = 1975-2) 0.3 0.2-1.2 [facility] HospitalAspartate Amino Transf (AST/SGOT) 2017-10-09 08:10:00* Test Item Value Reference Range Interpretation Comments Aspartate Amino Transf (AST/SGOT) (test code = Aspartate Amino Transf (AST/SGOT)) 22 5-34 [facility] HospitalAlanine Aminotransferase (ALT/SGPT) 2017-10-09 08:10:00* Test Item Value Reference Range Interpretation Comments Alanine Aminotransferase (ALT/SGPT) (test code = 1742-6) 43 0-55 [facility] HospitalTotal Ughytli4042-45-31 08:10:00* Test Item Value Reference Range Interpretation Comments Total Protein (test code = 2885-2) 6.6 6.5-8.1 [facility] HospitalAlbumin2018-06-24 08:10:00* Test Item Value Reference Range Interpretation Comments Albumin (test code = 1751-7) 3.1 3.5-5.0 L [facility] HospitalGlobulin2018-06-24 08:10:00* Test Item Value Reference Range Interpretation Comments Globulin (test code = 26691-0) 3.5 2.3-3.5 [facility] HospitalAlbumin/Globulin Ffcgk4155-81-13 08:10:00 * Test Item Value Reference Range Interpretation Comments Albumin/Globulin Ratio (test code = 1759-0) 0.9 0.8-2.0 [facility] HospitalAlkaline Jdimcvhsiaf5348-82-76 08:10:00* Test Item Value Reference Range Interpretation Comments Alkaline Phosphatase (test code = 6768-6) 76 40-150 [facility] HospitalTriglycerides Ipawz3918-00-04 08:10:00* Test Item Value Reference Range Interpretation Comments Triglycerides Level (test code = 2571-8) 677 0-149 H [facility] HospitalCholesterol Vmnhb0334-32-22 08:10:00* Test Item Value Reference Range Interpretation Comments Cholesterol Level (test code = 2093-3) 267 0-199 H Less than 200 mg/dL Low Hxow620 - 239 mg/dL Borderline Wpjy978 m g/dl and greater High Risk [facility] HospitalHDL Jxecyaeateq3559-07-76 08:10:00* Test Item Value Reference Range Interpretation Comments HDL Cholesterol (test code = 2085-9) 50 40-60 [facility] HospitalCholesterol/HDL Fvujo5939-22-11 08:10:00 * Test Item Value Reference Range Interpretation Comments Cholesterol/HDL Ratio (test code = 9830-1) 5.3 3.0-3.6 H [facility] HospitalCreatine Kinase VQ0162-06-86 19:38:00* Test Item Value Reference Range Interpretation Comments Creatine Kinase MB (test code = 58978-7) 2.40 0-5.0 [facility] HospitalTroponin X5678-12-26 19:38:00* Test Item Value Reference Range Interpretation Comments Troponin I (test code = WGX1419) -0.001 0-0.300 [facility] HospitalCreatine Qjjkli0099-89-62 19:28:00* Test Item Value Reference Range Interpretation Comments Creatine Kinase (test code = 2157-6) 84 29-168 [facility] HospitalUrine Leukocyte Vkiwaamf2287-12-27 14:17:00* Test Item Value Reference Range Interpretation Comments Urine Leukocyte Esterase (test code = 5799-2) 1+ NEGATIVE H --- 10/08/17 1416 ---LEUKO ESTERASE previously reported as: NEGATIVE [facility] HospitalUrine LOU3021-06-97 14:13:00* Test Item Value Reference Range Interpretation Comments Urine WBC (test code = 5821-4) 6-10 0-5 H [facility] HospitalUrine GXF5980-32-26 14:13:00* Test Item Value Reference Range Interpretation Comments Urine RBC (test code = 68012-9) 0-5 0-5 [facility] HospitalUrine Ygnxovup1013-46-91 14:13:00* Test Item Value Reference Range Interpretation Comments Urine Bacteria (test code = 39329-9) FEW NONE [facility] HospitalUrine Epithelial Krhvx7089-31-32 14:13:00 * Test Item Value Reference Range Interpretation Comments Urine Epithelial Cells (test code = 90728-0) FEW NONE [facility] HospitalUrine Pvmby1009-97-38 14:09:00* Test Item Value Reference Range Interpretation Comments Urine Color (test code = 5778-6) YELLOW YELLOW [facility] HospitalUrine Icybvfz0379-41-39 14:09:00* Test Item Value Reference Range Interpretation Comments Urine Clarity (test code = 71631-9) CLEAR CLEAR [facility] HospitalUrine Specific Elqwsts7377-11-10 14:09:00 * Test Item Value Reference Range Interpretation Comments Urine Specific [place] (test code = 5811-5) 1.020 1.010-1.02 5 [facility] HospitalUrine zS4089-10-87 14:09:00* Test Item Value Reference Range Interpretation Comments Urine pH (test code = 66089-9) 6 5-7 [facility] HospitalUrine Suaxijv4407-02-72 14:09:00* Test Item Value Reference Range Interpretation Comments Urine Nitrite (test code = 22751-4) NEGATIVE NEGATIVE [facility] HospitalUrine Tblmkse9163-42-77 14:09:00* Test Item Value Reference Range Interpretation Comments Urine Protein (test code = 5804-0) NEGATIVE NEGATIVE [facility] HospitalUrine Glucose (UA)2017-10-08 14:09:00* Test Item Value Reference Range Interpretation Comments Urine Glucose (UA) (test code = 2349-9) NEGATIVE NEGATIVE [facility] HospitalUrine Vlhhwzk8650-58-98 14:09:00* Test Item Value Reference Range Interpretation Comments Urine Ketones (test code = 63918-2) NEGATIVE NEGATIVE [facility] HospitalUrine Ceheyrthadtf3127-98-33 14:09:00* Test Item Value Reference Range Interpretation Comments Urine Urobilinogen (test code = 32058-0) 0.2 0.2-1 [facility] HospitalUrine Vuwxzoxon6647-07-52 14:09:00* Test Item Value Reference Range Interpretation Comments Urine Bilirubin (test code = 1978-6) NEGATIVE NEGATIVE [facility] HospitalUrine Pimxl8892-35-20 14:09:00* Test Item Value Reference Range Interpretation Comments Urine Blood (test code = 48672-7) NEGATIVE NEGATIVE [facility] HospitalUrine Tdkh7822-91-43 14:09:00* Test Item Value Reference Range Interpretation Comments Urine Test (test code = 2106-3) NEGATIVE NEGATIVE [facility] HospitalUrine Siov4479-78-87 14:09:00* Test Item Value Reference Range Interpretation Comments Urine Test (test code = 2106-3) NEGATIVE NEGATIVE [facility] HospitalHemoglobin A1c Zthgxdz6159-83-51 08:53:00 * Test Item Value Reference Range Interpretation Comments Hemoglobin A1c Percent (test code = Hemoglobin A1c Percent) 7.0 4.0-7.0 [facility] HospitalThyroid Stimulating Hormone (TSH) 2017-10-08 04:23:00* Test Item Value Reference Range Interpretation Comments Thyroid Stimulating Hormone (TSH) (test code = 15729-9) 1.862 0.350-4.940 [facility] HospitalThyroid Stimulating Hormone (TSH) 2017-10-08 04:23:00* Test Item Value Reference Range Interpretation Comments Thyroid Stimulating Hormone (TSH) (test code = 20489-4) 1.862 0.350-4.940 [facility] HospitalCHEST SINGLE (PORTABLE)2017-10-08 04:20:00 [place] [id number] [place] [address] Patient Name: ROSA ISELA BENITEZ MR #: [id number] : 1970 Age/Sex: 47/F Req #: [id number] Adm Physician: Ordered by: ALAN NAJERA MD Report #: [id number] Location: ER Room/Bed: Procedure: [id number] DX/CHEST SINGLE (PORTABLE ) Exam Date: 10/08/17 Exam Time: 356 TATUS: Signed CHEST SINGLE (PORTABLE), 10/08/2017 3:32 AM Technique: CHES T SINGLE (PORTABLE) Comparison: 07/02/2014 Clinical history: Lower extremity edema Findings: Stable cardiomediastinal silhouette, within normal limits for portable technique. No consolidation or edema. No pleural effusion or pne umothorax. Impression: 1. Lines/Tubes: None 2. No acute abnormality. Signed by: Dr Kellie Mosher MD on 10/08/2017 4:22 AM Dictated By: MAUREEN MOSHER MD 1 T ranscribed By: BRENDON on 10/08/17421 COPY TO: ALAN NAJERA MD LOWER LEG IKZCT3105-18-43 04:18:00 [place] [address] Patient Name: ROSA ISELA BENITEZ MR #: [id number] : 1970 Age/Sex: 47/F Req #: [id number] Adm Physician: Ordered by: ALAN NAJERA MD Report #: [id number] Location: Room/Bed: Procedure: [id number] DX/LOWER LEG RIGHT Exam Date: 10/08/17 Exam Time: 356 REPORT STATUS: S igned LOWER LEG RIGHT Comparison: 10/17/2012 Clinical history: S LE SRINATH MA, PAIN RIGHT LEG S [id number] S 356 Findings: Mild diffuse soft tissue swelling, worse over the anterior distal tibia. Scattered radiopaque densitie s are noted, likely artifactual. No acute fracture or osseous erosion. Im pression: Soft tissue edema without acute bony abnormality Signed by: Dr Kellie Mosher MD on 10/08/2017 4:20 AM Dictated By: KELLIE MOSHER MD 9 Transcribed By: Cheyanne LYN on 10/08/17419 COPY TO: ALAN NAJERA MD B-Type Natriuretic Yehgyfp7046-06-52 04:06:00* Test Item Value Reference Range Interpretation Comments B-Type Natriuretic Peptide (test code = 09693-8) 17.1 0-100 [facility] HospitalB-Type Natriuretic Fhixvdk6809-88-98 04:06:00* Test Item Value Reference Range Interpretation Comments B-Type Natriuretic Peptide (test code = 92682-5) 17.1 0-100 [facility] HospitalProthrombin Yoyk1071-12-35 03:58:00* Test Item Value Reference Range Interpretation Comments Prothrombin Time (test code = 5902-2) 12.0 11.9-14.5 [facility] HospitalProthromb Time International Ratio 2017-10-08 03:58:00* Test Item Value Reference Range Interpretation Comments Prothromb Time International Ratio (test code = 6301-6) 0.96 Oral Anticoagulant Therapy INR Values:1. Low Intensity Therapy 1.5 - 2.02 . Moderate Intensity Therapy 2.0 - 3.03. High Intensity Therapy(1) 2.5 - 3. 54. High Intensity Therapy(2) 3.0 - 4.05. Panic Value INR > 5.0 [facility] HospitalActivated Partial Thromboplast Time 2017-10-08 03:58:00* Test Item Value Reference Range Interpretation Comments Activated Partial Thromboplast Time (test code = 92300-2) 25.0 23.8-35.5 [facility] HospitalD-Dimer Quantitative (PE/DVT)2017-10-08 03:58:00* Test Item Value Reference Range Interpretation Comments D-Dimer Quantitative (PE/DVT) (test code = 96093-2) 0.86 0. 00-0.45 H As with all in vitro diagnostic tests, the test results should be interpreted by the physician in conjunction with clinical findings and other test results.Test results are reported in NEW D-dimer units(ug/mLFEU).[facility] HospitalMagnesium Guvlq8760-47-28 03:58:00* Test Item Value Reference Range Interpretation Comments Magnesium Level (test code = 47457-5) 1.9 1.3-2.1 [facility] HospitalD-Dimer Quantitative (PE/DVT)2017-10-08 03:58:00* Test Item Value Reference Range Interpretation Comments D-Dimer Quantitative (PE/DVT) (test code = 64528-1) 0.86 0. 00-0.45 H As with all in vitro diagnostic tests, the test results should be interpreted by the physician in conjunction with clinical findings and other test results.Test results are reported in NEW D-dimer units(ug/mLFEU).[facility] HospitalMagnesium Dhfui4718-77-87 03:58:00* Test Item Value Reference Range Interpretation Comments Magnesium Level (test code = 72174-3) 1.9 1.3-2.1 [facility]
--- OUTSIDE RECORDS SUMMARY | 2019-11-15 19:05 | XMS REPORT | Continuity of Care Document ---
Author Author [facility] Organization [facility] Address [address] [place] [address] Phone Unavailable Care Team Providers Care Advertising Columnist Name Role Phone SOLANGE SORIA, MD ZURITA PCP PARMINDER NARVAEZ Attphys Unavailable DARBYESTER Attphys Unavailable BERNA, S AMBICA Attphys Unavailable SWEET, A LAIRD Attphys Unavailable PARMINDER NARVAEZ Admphys Unavailable Payers Payer Name Policy Type Policy Number Effective Date Expiration Date Kiko Marin [facility] [id number] 2011 00:00:00 [facility] Problems Condition Name Condition Details Condition Category Status Onset Date Resolution Date Last Treatment Date Treating Clinician Comments Source Chronic bronchitis Chronic bronchitis Problem Active 2014-07-02 00:00:0 0 [facility] Candidiasis of mouth and esophagus Thrush of mouth and esophagus Pr oblem Active 2014-07-02 00:00:00 [facility] Cellulitis Cellulitis Problem Active [facility] Edema of foot Pedal edema Problem Active [facility] Cellulitis and abscess of foot excluding toe Celluliti s and abscess of foot, except toes Problem Active [facility] Hypokalemia Hypokalemia Problem Active [facility] Edema Edema Problem Active [facility] Leukocytosis Elevated WBC count Problem Active [facility] Lupus erythematosus Lupus Problem Active [facility] Fall Fall Problem Active [facility] Laceration of left forearm Laceration of left forearm Problem Active [facility] Severe sepsis Severe sepsis Problem Active [facility] Urinary tract infection UTI (urinary tract infection) Problem Active [facility] Laceration of right knee Problem Active [facility] Cellulitis of both lower extremities Problem Active [facility] Allergies, Adverse Reactions, Alerts Allergy Name Allergy Type Status Severity Reaction(s) Onset Date Inacti ve Date Treating Clinician Comments Source Meropenem Propensity to adverse reactions Active hives 2018-0 8-03 00:00:00 [facility] Cefepime Allergy to substance Active 2018-11-17 00:00:00 [facility] Linezolid Allergy to substance Active Moderate 2018-04-11 00:00:00 [facility] Fish Containing Products Allergy to substance Active Severe 2018-04-09 00:00:00 [facility] Iodine Allergy to substance Active 2018-04-09 00:00:00 [facility] Neomycin Allergy to substance Active Moderate causes skin to get crusty and yellow 2018-04-09 00:00:00 [facility] Bacitracin Allergy to substance Active Moderate causes skin to get yellow and crusty 2018-04-09 00:00:00 [facility] Vancomycin Allergy to substance Active Severe honey symdrome ? 2018-04-09 00:00:00 [facility] Polymyxin b Allergy to substance Active Moderate causes skin to get crusty and yellow 2018-04-09 00:00:00 [facility] shellfish derived Allergy to substance Active Severe 2018-03-19 3 00:00:00 [facility] CHITOSAN Allergy to substance Active 2016-07-06 00:00:00 [facility] Social History Social Habit Start Date Stop Date Quantity Comments Source Sex Assigned At 1970 00:00:00 1970 00:00:00 Female [facility] Medications Ordered Medication Name Filled Medication Name Start Date Stop Da te Current Medication? Ordering Clinician Indication Dosage Frequency Signature (SIG) Comments Components Source Albuterol Sulfate (Ventolin Hfa) 18 Gm HFA.AER.AD Albu terol Sulfate (Ventolin Hfa) 18 Gm HFA.AER.AD Yes Every 4 Hours as needed for Allergy [facility] Alprazolam Alprazolam Yes .25 Three Time s A Day as needed for Anxiety [facility] Aten[facility]ol Atenolol Yes 25 Twice A Day [facility] Cyclobenzaprine Hcl Cyclobenzaprine Hcl Yes 10 Three Times A Day as needed for Muscle Spasms [facility] Epinephrine Epinephrine Yes C HI [facility] Furosemide Furosemide Yes 40 Daily as needed fo r Swelling [facility] Glimepiride Glimepiride Yes 4 Daily [facility] Hydrocodone Bit/Acetaminophen (Hydrocodon-Acetaminophn 10-325) 1 Each TABLET Hydrocodone Bit/Acetaminophen (Hydrocodon-Acetaminophn 10-325) 1 Each TABLET Yes 1 Every 8 Hours as needed for Mode rate Pain (4-6) [facility] Lisinopril Lisinopril Yes 2.5 Daily as needed fo r Blood Pressure [facility] Promethazine Hcl Promethazine Hcl Yes 25 Q 6 H Prn [facility] Santyl Santyl Yes 1 Daily [facility] Sertraline Hcl Sertraline Hcl Yes 50 Da justen as needed for Agitation [facility] Zolpidem Tartrate Zolpidem Tartrate Yes 10 Bedt omega [facility] Blood Sugar Diagnostic (One Touch Ultra Test Strips) 1 Each STRIP Blood Sugar Diagnostic (One Touch Ultra Test Strips) 1 Each STRIP 2019-02-07 00:00:00 No [facility] Carisoprodol (Soma) 350 Mg TABLET Carisoprodol (Soma) 350 Mg TAB LET 2018-11-18 00:00:00 No 350 Q8hrs [facility] Cephalexin Cephalexin 2018-11-18 00:00:00 No 750 Thr ee Times A Day [facility] Cephalexin Monohydrate (Keflex) 750 Mg CAPSULE Cephale isma Monohydrate (Keflex) 750 Mg CAPSULE 2018-11-18 00:00:00 No 1000 Every 8 H ours [facility] Ciprofloxacin Hcl (Cipro) 500 Mg TABLET Ciprofloxacin Hcl (C ipro) 500 Mg TABLET 2018-11-18 00:00:00 No 500 Twice A Day [facility] Doxycycline Hyclate Doxycycline Hyclate 2018-11-18 00:00:00 No 100 Every 12 Hours [facility] Doxycycline Hyclate Doxycycline Hyclate 2018-11-18 00:00:00 No 100 Twice A Day [facility] Hydrochlorothiazide Hydrochlorothiazide 2018-11-18 00:00:00 No 50 Daily [facility] Hydrocodone Bit/Acetaminophen (Vicodin Es 7.5-750 Mg T ablet) 1 Each TABLET Hydrocodone Bit/Acetaminophen (Vicodin Es 7.5-750 Mg Tablet) 1 Each TABLET 2018-11-18 00:00:00 No Q6hrs [facility] Metronidazole (Flagyl) 250 Mg TABLET Metronidazole (Flagyl) 250 Mg TABLET 2018-11-18 00:00:00 No 500 Every 8 Hours [facility] Lactulose Lactulose 2017-10-12 00:00:00 No 30 Every 8 Hours as needed for Constipation [facility] Sennosides/Docusate Sodium (Senna Laxative Tablet) 1 E ach TABLET Sennosides/Docusate Sodium (Senna Laxative Tablet) 1 Each TABLET 2017-10-12 00:00:00 No 1 Twice A Day [facility] Triamcinolone Acetonide (Kenalog-10) 10 Mg/1 Ml VIAL T riamcinolone Acetonide (Kenalog-10) 10 Mg/1 Ml VIAL 2012-10-16 00:00:00 No 1 Q6-8WEEKS [facility] Vital Signs Vital Name Observation Time Observation Value Comments Source Body Temperature 2019-10-08 09:03:00 98.7 [degF] [facility] Weight 2019-10-07 00:47:00 175.50 [lb_av] [facility] BMI (Body Mass Index) 2019-10-07 00:47:00 30.1 kg/m2 [facility] Procedures Procedure Date / Time Performed Performing Clinician Selena garcia Computed tomography of brain without radiopaque contrast 2019-09 00:00:00 [facility] Computed tomography of brain without radiopaque contrast 201 12-28-03 00:00:00 FUNMILAYO CALLOWAY [facility] Computed tomography of cervical spine without contrast 02-19 00:00:00 FUNMILAYO CALLOWAY [facility] CT of abdomen and pelvis without contrast 2019-02-19 00:00:00 [facility] X-ray of chest, two views 2019-01-27 00:00:00 SHEY EWING [facility] CT of abdomen and pelvis without contrast 2019-01-27 00:00:00 [facility] Plan of Care Planned Activity Planned Date Details Comments Source Instructions Cellulitis [facility] Instructions Diabetes and Diet [facility] Encounters Start Date/Time End Date/Time Encounter Type Admission Type [facility] Care Department Encounter ID Source 2019-02-19 04:25:00 2019-02-26 09:53:00 Discharged Inpatient 1 SOLANGE, PARMINDER [facility] [id number] [facility] 2019-02-07 17:41:00 2019-02-13 13:55:00 Discharged Inpatient 1 ESTER PASTOR [facility] [id number] [facility] 2019-01-27 11:45:00 2019-01-29 10:43:00 Discharged Inpatient (obs) 1 SHEY CORONEL [facility] [id number] [facility] 2018-11-17 19:27:00 2018-11-29 14:08:00 Discharged Inpatient 1 PARMINDER NARVAEZ [facility] [id number] [facility] 2018-04-09 16:03:00 2018-04-16 11:03:00 Discharged Inpatient 1 PARMINDER NARVAEZ [facility] [id number] [facility] 2017-10-08 06:02:00 2017-10-13 06:19:00 Discharged Inpatient 1 ALAN NAJERA [facility] [id number] [facility] Results Test Description Test Time Test Comments Results Result Comments Source Capillary blood glucose measurement by glucometer (mas s/volume) 2019-10-08 07:07:00 Test Item Bedside Glucose (test code = 79402-4) 181 70-120 Meter ID: [id number][facility] leukocytes automated count (number/volume)2019-10-07 05:15:00* Test Item Value Reference Range Interpretation Comments White Blood Count (test code = 6690-2) 17.93 4.8-10.8 [facility] automated count (number/volume)2019-10-07 05:15:00* Test Item Value Reference Range Interpretation Comments Red Blood Count (test code = 789-8) 3.93 3.6-5.1 [facility] hemoglobin measurement (moles/volume)2019-10-07 05:15:00* Test Item Value Reference Range Interpretation Comments Hemoglobin (test code = 66453-8) 12.8 12.0-16.0 [facility] blood hematocrit (volume fraction)2019-10-07 05:15:00* Test Item Value Reference Range Interpretation Comments Hematocrit (test code = 4544-3) 38.4 34.2-44.1 [facility] erythrocyte mean corpuscular [id number] 05:15:00* Test Item Value Reference Range Interpretation Comments Mean Corpuscular Volume (test code = 787-2) 97.7 81-99 [facility]ano[facility] erythrocyte mean corpuscular hemoglobin (mass per erythrocyte)2019-10-07 05:15:00* Test Item Value Reference Range Interpretation Comments Mean Corpuscular Hemoglobin (test code = 785-6) 32.6 28-32 [facility] erythrocyte mean corpuscular hemoglobin concentration measurement (mass/volume)2019-10-07 05:15:00* Test Item Value Reference Range Interpretation Comments Mean Corpuscular Hemoglobin Concent (test code = 786-4) 33.3 31-35 [facility] PlanoRDW NhaMf-[id number] 05:15:00* Test Item Value Reference Range Interpretation Comments Red Cell Distribution Width (test code = 59259-0) 13.7 11.7 -14.4 [facility]ano[facility] blood platelet count (count/volume)2019-10-07 05:15:00* Test Item Value Reference Range Interpretation Comments Platelet Count (test code = 777-3) 338 140-360 [facility]anoAutomated blood segmented neutrophil count as percentage of total hzntzjfrko4694-53-56 05:15:00* Test Item Value Reference Range Interpretation Comments Neutrophils (%) (Auto) (test code = 06388-6) 73.2 38.7-80.0 [facility]ano[facility] blood lymphocyte count as percentage ot total koddvbuaxn1819-53-73 05:15:00* Test Item Value Reference Range Interpretation Comments Lymphocytes (%) (Auto) (test code = 736-9) 15.6 18.0-39.1 [facility]ano[facility] blood monocyte count as percentage of total rwtskzyjvj7940-30-61 05:15:00* Test Item Value Reference Range Interpretation Comments Monocytes (%) (Auto) (test code = 5905-5) 7.1 4.4-11.3 [facility] blood eosinophil count as percentage of total qkstsvbqjd9462-30-52 05:15:00* Test Item Value Reference Range Interpretation Comments Eosinophils (%) (Auto) (test code = 713-8) 0.3 0.0-6.0 [facility] blood basophil count as percentage of total ualolelanm5041-75-02 05:15:00* Test Item Value Reference Range Interpretation Comments Basophils (%) (Auto) (test code = 706-2) 0.6 0.0-1.0 [facility]anoFluoroscopic procedure less than one hour dvmbbgbb1287-28-07 05:15:00* Test Item Value Reference Range Interpretation Comments IM GRANULOCYTES % (test code = IM GRANULOCYTES %) 3.2 0.0- 1.0 [facility] blood neutrophil count 2019-10-07 05:15:00* Test Item Value Reference Range Interpretation Comments Neutrophils # (Auto) (test code = 751-8) 13.1 2.1-6.9 [facility] lymphocytes count (number/volume) 2019-10-07 05:15:00* Test Item Value Reference Range Interpretation Comments Lymphocytes # (Auto) (test code = 63668-1) 2.8 1.0-3.2 [facility] monocytes automated count (number/volume)2019-10-07 05:15:00* Test Item Value Reference Range Interpretation Comments Monocytes # (Auto) (test code = 742-7) 1.3 0.2-0.8 [facility] blood eosinophil count 2019-10-07 05:15:00* Test Item Value Reference Range Interpretation Comments Eosinophils # (Auto) (test code = 711-2) 0.1 0.0-0.4 [facility]ano[facility] blood basophil count (count/volume)2019-10-07 05:15:00* Test Item Value Reference Range Interpretation Comments Basophils # (Auto) (test code = 704-7) 0.1 0.0-0.1 [facility]anoFluoroscopic procedure less than one hour eynbtvsp4923-97-57 05:15:00* Test Item Value Reference Range Interpretation Comments Absolute Immature Granulocyte (auto (anita t code = Absolute Immature Granulocyte (auto) 0.57 0-0.1 [facility] plasma sodium measurement (moles/volume)2019-10-07 05:15:00* Test Item Value Reference Range Interpretation Comments Sodium Level (test code = 2951-2) 136 136-145 [facility] or plasma potassium measurement (moles/volume)2019-10-07 05:15:00* Test Item Value Reference Range Interpretation Comments Potassium Level (test code = 2823-3) 4.3 3.5-5.1 [facility] or plasma chloride measurement (moles/volume)2019-10-07 05:15:00* Test Item Value Reference Range Interpretation Comments Chloride Level (test code = 2075-0) 101 98-107 [facility] or plasma carbon dioxide, total measurement (moles/volume)2019-10-07 05:15:00* Test Item Value Reference Range Interpretation Comments Carbon Dioxide Level (test code = 2028-9) 25 22-29 [facility]erum or plasma anion [id number] 05:15:00* Test Item Value Reference Range Interpretation Comments Anion Gap (test code = 54966-4) 14.3 8-16 [facility]erum or plasma urea nitrogen measurement (mass/volume)2019-10-07 05:15:00* Test Item Value Reference Range Interpretation Comments Blood Urea Nitrogen (test code = 3094-0) 22 7-26 [facility]erum or plasma creatinine measurement (mass/volume)2019-10-07 05:15:00* Test Item Value Reference Range Interpretation Comments Creatinine (test code = 2160-0) 0.99 0.57-1.11 [facility]erum or plasma urea nitrogen/creatinine mass [id number] 05:15:00* Test Item Value Reference Range Interpretation Comments BUN/Creatinine Ratio (test code = 3097-3) 22 6-25 [facility]anoEstimated glomerular filtration rate (GFR) pmudxluipsfcr1358-73-08 05:15:00* Test Item Value Reference Range Interpretation Comments Estimat Glomerular Filtration Rate (test code = 128141720) 60 >60 Ranges were taken from the National Kidney Disease Education Program and the [facility] [employer] Foundation literature.Reference ranges:60 or greater: Siitqx85-60 ( for 3 consecutive months): Chronic kidney disease 15 or less: Kidney failureB[facility] PlanoGlucose qzjitzrvsnz9046-28-82 05:15:00* Test Item Value Reference Range Interpretation Comments Glucose Level (test code = YGN0376) 227 74-118 [facility] Hospitalerum or plasma calcium measurement (mass/volume)2019-10-07 05:15:00* Test Item Value Reference Range Interpretation Comments Calcium Level (test code = 62025-3) 8.9 8.4-10.2 [facility]anoCHEST XRAY LINE [id number] 11:27:00 [facility] [address] [address] Patient Name: ROSA ISELA BENITEZ MR #: [id number] : 1970 Age/Sex: 49/F Req #: [id number] Adm Physician: PARMINDER NARVAEZ MD Ordered by: PARMINDER NARVAEZ MD Report #: [id number] [facility]Bed: [facility] Procedure: [id number] DX/CHEST X RAY LINE PLACEMENT Exam Date: [...] Bilirubin (test code = 1975-2) 0.4 0.2-1.2 [facility]anoFluoroscopic procedure less than one hour xnvqewzl1413-86-38 05:00:00* Test Item Value Reference Range Interpretation Comments Aspartate Amino Transf (AST/SGOT) (test code = Aspartate Amino Transf (AST/SGOT)) 30 5-34 [facility] Hospitalerum or plasma alanine aminotransferase measurement (enzymatic activity/volume)2019-10-02 05:00:00* Test Item Value Reference Range Interpretation Comments Alanine Aminotransferase (ALT/SGPT) (test code = 1742-6) 59 0-55 [facility] Hospitalerum or plasma protein measurement (mass/volume)2019-10-02 05:00:00* Test Item Value Reference Range Interpretation Comments Total Protein (test code = 2885-2) 6.4 6.5-8.1 [facility] Hospitalerum or plasma albumin measurement (mass/volume)2019-10-02 05:00:00* Test Item Value Reference Range Interpretation Comments Albumin (test code = 1751-7) 3.0 3.5-5.0 [facility]anoPlasma globulin measurement (mass/volume) 2019-10-02 05:00:00* Test Item Value Reference Range Interpretation Comments Globulin (test code = 12353-0) 3.4 2.3-3.5 [facility] Hospitalerum or plasma albumin/globulin mass [id number] 05:00:00* Test Item Value Reference Range Interpretation Comments Albumin/Globulin Ratio (test code = 1759-0) 0.9 0.8-2.0 [facility] Hospitalerum or plasma alkaline phosphatase measurement (enzymatic activity/volume)2019-10-02 05:00:00* Test Item Value Reference Range Interpretation Comments Alkaline Phosphatase (test code = 6768-6) 101 40-[address] [facility] procedure less than one hour [id number] 09:09:00* Test Item Value Reference Range Interpretation [...] complexity tests.Testing performed by [facility] [id number] [place], [place] [id number] Director: Jered Escobedo M.D.CLIA # [id number] [facility] TexasBlood cvixiem2462-96-16 07:55:00* Test Item Value Reference Range Interpretation Comments Blood Culture (test code = 30087327) NO GROWTH AFTER 5 DAYS, FINAL REPORT [facility] TexasCT BRAIN [id number] 06:53:[address] [address] Patient Name: ROSA ISELA BENITEZ MR #: [id number] : 1970 Age/Sex: 49/F Req #: [id number] Adm Physician: PARMINDER NARVAEZ MD Ordered by: FUNMILAYO CALLOWAY MD Report #: [id number] Location: [facility] Room/Bed: [address] [address] Procedure: [id number] CT /CT BRAIN WO Exam Date: 10/01/19 [...] MD Fluoroscopic procedure less than one hour tyxizpgf1568-58-48 05:50:00* Test Item Value Reference Range Interpretation Comments Differential Total Cells Counted (test code = Differgeoff tial Total Cells Counted) 100 [facility] blood neutrophils/100 leukocytes 2019-10-01 05:50:00* Test Item Value Reference Range Interpretation Comments Neutrophils % (Manual) (test code = 37225-1) 70 40-74 [facility] blood lymphocytes/100 leukocytes 2019-10-01 05:50:00* Test Item Value Reference Range Interpretation Comments Lymphocytes % (Manual) (test code = 737-7) 20 19-48 [facility] blood monocytes/100 leukocytes 2019-10-01 05:50:00* Test Item Value Reference Range Interpretation Comments Monocytes % (Manual) (test code = 744-3) 9 3.4-9.0 [facility] blood eosinophil count as percentage of total uihlypxidd3576-07-90 05:50:00* Test Item Value Reference Range Interpretation Comments Eosinophils % (Manual) (test code = 714-6) 1 0-7 [facility] platelets count by estimate (number/volume)2019-10-01 05:50:00* Test Item Value Reference Range Interpretation Comments Platelet Estimate (test code = 10188-9) ADEQUATE [facility] PlanoPlatelet vboihvspbq6111-75-30 05:50:00* Test Item Value Reference Range Interpretation Comments Platelet Morphology Comment (test code = 45084-2) NORMAL [facility]anoBlood hypochromia detection by light zbjqigihnk5151-54-20 05:50:00* Test Item Value Reference Range Interpretation Comments Hypochromasia (test code = 728-6) SLIGHT [facility] PlanoRBC spyoijpeee4551-99-18 05:50:00* Test Item Value Reference Range Interpretation Comments Red Cell Morphology Comment (test code = 6742-1) NORMAL [facility] PlanoUrine color zudxxkdjniemw2105-03-28 05:50:00* Test Item Value Reference Range Interpretation Comments Urine Color (test code = 5778-6) YELLOW YELLOW [facility] PlanoUrine [id number] 05:50:00* Test Item Value Reference Range Interpretation Comments Urine Clarity (test code = 01393-1) CLEAR CLEAR [facility] Hospitalpecific gravity of Urine by Test strip 2019-10-01 05:50:00* Test Item Value Reference Range Interpretation Comments Urine Specific [place] (test code = 5811-5) 1.020 1.010-1.02 5 [facility]anoUrine pH measurement by automated test vqgky4079-20-01 05:50:00* Test Item Value Reference Range Interpretation Comments Urine pH (test code = 88709-9) 6 5-7 [facility]anoUrine leukocyte esterase detection by jxhtohuu0302-92-07 05:50:00* Test Item Value Reference Range Interpretation Comments Urine Leukocyte Esterase (test code = 5799-2) NEGATIVE NEGATIVE [facility] PlanoUrine nitrite bhtgafpug0757-61-71 05:50:00* Test Item Value Reference Range Interpretation Comments Urine Nitrite (test code = 12903-0) NEGATIVE NEGATIVE [facility]anoUrine protein measurement by test strip (mass/volume)2019-10-01 05:50:00* Test Item Value Reference Range Interpretation Comments Urine Protein (test code = 5804-0) NEGATIVE NEGATIVE [facility] PlanoUrine glucose stowxvquh4010-88-67 05:50:00* Test Item Value Reference Range Interpretation Comments Urine Glucose (UA) (test code = 2349-9) NEGATIVE NEGATIVE [facility] PlanoUrine ketones detection by automated test lilde7478-10-72 05:50:00* Test Item Value Reference Range Interpretation Comments Urine Ketones (test code = 00826-7) NEGATIVE NEGATIVE [facility] PlanoUrine urobilinogen measurement by test strip (mass/volume)2019-10-01 05:50:00* Test Item Value Reference Range Interpretation Comments Urine Urobilinogen (test code = 56219-8) 0.2 0.2-1 [facility]anoUrine total bilirubin measurement (mass/volume)2019-10-01 05:50:00* Test Item Value Reference Range Interpretation Comments Urine Bilirubin (test code = 1978-6) NEGATIVE NEGATIVE [facility] PlanoUrine erythrocytes pejyxbfrf7290-93-32 05:50:00* Test Item Value Reference Range Interpretation Comments Urine Blood (test code = 31714-4) TRACE NEGATIVE [facility] PlanoAutomated urine sediment leukocyte count by microscopy (number/high power field)2019-10-01 05:50:00* Test Item Value Reference Range Interpretation Comments Urine WBC (test code = 5821-4) 0-5 0-5 [facility] PlanoErythrocytes detection in urine sediment by light vgytgztrek9680-72-56 05:50:00* Test Item Value Reference Range Interpretation Comments Urine RBC (test code = 59465-1) 0-5 0-5 [facility] PlanoBacteria detection in urine sediment by light fnlrakjoji5441-40-59 05:50:00* Test Item Value Reference Range Interpretation Comments Urine Bacteria (test code = 88991-1) FEW NONE [facility] PlanoEpithelial cells detection in urine sediment by light deiapdsnuc2498-26-22 05:50:00* Test Item Value Reference Range Interpretation Comments Urine Epithelial Cells (test code = 12222-1) FEW NONE [facility] PlanoYeast detection in urine sediment by light owbxqtqiwt0134-20-87 05:50:00* Test Item Value Reference Range Interpretation Comments Urine Yeast (test code = 41315-2) RARE NONE [facility] PlanoBedside Lqyjyhs8767-39-32 08:11:00* Test Item Value Reference Range Interpretation Comments Bedside Glucose (test code = 85865-1) 147 70-120 H Meter ID: [id number]. David's Georgetown HospitalPlatelet Morphology Rpcpbwd4854-02-66 08:00:00* Test Item Value Reference Range Interpretation Comments Platelet Morphology Comment (test code = 85487-2) NO EDTA PLT CLUMP S SEEN [facility] Hospitalodium Wngwt0314-61-24 07:25:00* Test Item Value Reference Range Interpretation Comments Sodium Level (test code = 2951-2) 139 136-145 [facility] PlanoPotassium Koqay7555-29-92 07:25:00* Test Item Value Reference Range Interpretation Comments Potassium Level (test code = 2823-3) 4.3 3.5-5.1 [facility] PlanoChloride Vmzvx9203-72-82 07:25:00* Test Item Value Reference Range Interpretation Comments Chloride Level (test code = 2075-0) 108 98-107 H [facility] PlanoCarbon Dioxide Ioiqa7557-52-85 07:25:00* Test Item Value Reference Range Interpretation Comments Carbon Dioxide Level (test code = 2028-9) 21 22-29 L [facility] PlanoAnion Nyd5875-57-64 07:25:00* Test Item Value Reference Range Interpretation Comments Anion Gap (test code = 09008-8) 14.3 8-16 [facility] PlanoBlood Urea Djnjdlys4775-51-97 07:25:00* Test Item Value Reference Range Interpretation Comments Blood Urea Nitrogen (test code = 3094-0) 8 7-26 [facility] PlanoCreatinine2019-11-09 07:25:00* Test Item Value Reference Range Interpretation Comments Creatinine (test code = 2160-0) 0.67 0.57-1.11 [facility] PlanoBUN/Creatinine Dqqrs1964-00-14 07:25:00* Test Item Value Reference Range Interpretation Comments BUN/Creatinine Ratio (test code = 3097-3) 12 6-25 [facility] PlanoEstimat Glomerular Filtration Rate 2019-02-24 07:25:00* Test Item Value Reference Range Interpretation Comments Estimat Glomerular Filtration Rate (test code = 133424339) > 60 >60 Ranges were taken from the National Kidney Disease Education Program and the [facility] literature.Reference ranges:60 or greater: Gxurad31-81 ( for 3 consecutive months): Chronic kidney disease 15 or less: Kidney failureCHI [facility] The University Of TexasGlucose Muclr5160-40-04 07:25:00* Test Item Value Reference Range Interpretation Comments Glucose Level (test code = KGH8287) 174 74-118 H [facility] PlanoCalcium Bwllu0437-26-48 07:25:00* Test Item Value Reference Range Interpretation Comments Calcium Level (test code = 20747-7) 9.0 8.4-10.2 [facility] PlanoMagnesium Ynlbq6224-35-60 07:25:00* Test Item Value Reference Range Interpretation Comments Magnesium Level (test code = 09085-1) 1.8 1.3-2.1 [facility] PlanoTotal Srmccvoyy1085-44-77 07:25:00* Test Item Value Reference Range Interpretation Comments Total Bilirubin (test code = 1975-2) 0.4 0.2-1.2 [facility] PlanoAspartate Amino Transf (AST/SGOT) 2019-02-24 07:25:00* Test Item Value Reference Range Interpretation Comments Aspartate Amino Transf (AST/SGOT) (test code = Aspartate Amino Transf (AST/SGOT)) 19 5-34 [facility] PlanoAlanine Aminotransferase (ALT/SGPT) 2019-02-24 07:25:00* Test Item Value Reference Range Interpretation Comments Alanine Aminotransferase (ALT/SGPT) (test code = 1742-6) 31 0-55 [facility] PlanoTotal Sjetefi5883-15-88 07:25:00* Test Item Value Reference Range Interpretation Comments Total Protein (test code = 2885-2) 6.1 6.5-8.1 L [facility] PlanoAlbumin2019-11-09 07:25:00* Test Item Value Reference Range Interpretation Comments Albumin (test code = 1751-7) 2.2 3.5-5.0 L [facility] PlanoGlobulin2019-11-09 07:25:00* Test Item Value Reference Range Interpretation Comments Globulin (test code = 94652-2) 3.9 2.3-3.5 H [facility] PlanoAlbumin/Globulin Yesrv4743-66-66 07:25:00 * Test Item Value Reference Range Interpretation Comments Albumin/Globulin Ratio (test code = 1759-0) 0.6 0.8-2.0 L [facility] PlanoAlkaline Wemfykgsfxo1828-59-27 07:25:00* Test Item Value Reference Range Interpretation Comments Alkaline Phosphatase (test code = 6768-6) 233 40-150 H [facility] PlanoWhite Blood Wtpya0876-01-60 07:13:00* Test Item Value Reference Range Interpretation Comments White Blood Count (test code = 6690-2) 13.13 4.8-10.8 H [facility] PlanoRed Blood Cxzgp5790-24-12 07:13:00* Test Item Value Reference Range Interpretation Comments Red Blood Count (test code = 789-8) 3.90 3.6-5.1 [facility] PlanoHemoglobin2019-11-09 07:13:00* Test Item Value Reference Range Interpretation Comments Hemoglobin (test code = 84416-5) 12.5 12.0-16.0 [facility] PlanoHematocrit2019-11-09 07:13:00* Test Item Value Reference Range Interpretation Comments Hematocrit (test code = 4544-3) 38.5 34.2-44.1 [facility] PlanoMean Corpuscular Zbzsbb1342-50-52 07:13:00* Test Item Value Reference Range Interpretation Comments Mean Corpuscular Volume (test code = 787-2) 98.7 81-99 [facility] PlanoMean Corpuscular Msyekitzqm0027-06-21 07:13:00* Test Item Value Reference Range Interpretation Comments Mean Corpuscular Hemoglobin (test code = 785-6) 32.1 28-32 H [facility] PlanoMean Corpuscular Hemoglobin Concent 2019-02-24 07:13:00* Test Item Value Reference Range Interpretation Comments Mean Corpuscular Hemoglobin Concent (test code = 786-4) 32.5 31-35 [facility] PlanoRed Cell Distribution Dsuae1185-53-90 07:13:00* Test Item Value Reference Range Interpretation Comments Red Cell Distribution Width (test code = 21830-0) 14.8 11.7 -14.4 H [facility] PlanoPlatelet Zsewv6991-38-68 07:13:00* Test Item Value Reference Range Interpretation Comments Platelet Count (test code = 777-3) 210 140-360 [facility] PlanoNeutrophils (%) (Auto)2019-02-24 07:13:00 * Test Item Value Reference Range Interpretation Comments Neutrophils (%) (Auto) (test code = 92395-0) 73.6 38.7-80.0 [facility] PlanoLymphocytes (%) (Auto)2019-02-24 07:13:00 * Test Item Value Reference Range Interpretation Comments Lymphocytes (%) (Auto) (test code = 736-9) 17.6 18.0-39.1 L [facility] PlanoMonocytes (%) (Auto)2019-02-24 07:13:00* Test Item Value Reference Range Interpretation Comments Monocytes (%) (Auto) (test code = 5905-5) 4.4 4.4-11.3 [facility]anoEosinophils (%) (Auto)2019-02-24 07:13:00 * Test Item Value Reference Range Interpretation Comments Eosinophils (%) (Auto) (test code = 713-8) 0.9 0.0-6.0 [facility] PlanoBasophils (%) (Auto)2019-02-24 07:13:00* Test Item Value Reference Range Interpretation Comments Basophils (%) (Auto) (test code = 706-2) 0.5 0.0-1.0 [facility] PlanoIM GRANULOCYTES %2019-02-24 07:13:00* Test Item Value Reference Range Interpretation Comments IM GRANULOCYTES % (test code = IM GRANULOCYTES %) 3.0 0.0- 1.0 H [facility] PlanoNeutrophils # (Auto)2019-02-24 07:13:00* Test Item Value Reference Range Interpretation Comments Neutrophils # (Auto) (test code = 751-8) 9.7 2.1-6.9 H [facility] PlanoLymphocytes # (Auto)2019-02-24 07:13:00* Test Item Value Reference Range Interpretation Comments Lymphocytes # (Auto) (test code = 74212-6) 2.3 1.0-3.2 [facility] PlanoMonocytes # (Auto)2019-02-24 07:13:00* Test Item Value Reference Range Interpretation Comments Monocytes # (Auto) (test code = 742-7) 0.6 0.2-0.8 [facility] PlanoEosinophils # (Auto)2019-02-24 07:13:00* Test Item Value Reference Range Interpretation Comments Eosinophils # (Auto) (test code = 711-2) 0.1 0.0-0.4 [facility] PlanoBasophils # (Auto)2019-02-24 07:13:00* Test Item Value Reference Range Interpretation Comments Basophils # (Auto) (test code = 704-7) 0.1 0.0-0.1 [facility] PlanoAbsolute Immature Granulocyte (auto 2019-02-24 07:13:00* Test Item Value Reference Range Interpretation Comments Absolute Immature Granulocyte (auto (anita t code = Absolute Immature Granulocyte (auto) 0.39 0-0.1 H [facility] Hospitalerum or plasma magnesium measurement (mass/volume)2019-02-24 05:30:00* Test Item Value Reference Range Interpretation Comments Magnesium Level (test code = 53429-3) 1.8 1.3-2.1 [facility] PlanoBlood Mskqkbh9473-95-09 03:54:00* Test Item Value Reference Range Interpretation Comments Blood Culture (test code = 36996460) NO GROWTH AFTER 5 DAYS, FINAL REPORT [facility] RegionalIN[facility] (PARANASAL)MIN 3ORIYO8045-39-36 08:50:00 [facility] [address] [address] Patient Name: ROSA ISELA BENITEZ MR #: [id number] : 1970 Age/Sex: 49/F Req #: [id number] Adm Physician: PARMINDER NARVAEZ MD Ordered by: PARMINDER NARVAEZ MD Report #: [id number] Location: MED/SURG3 Room/Bed: [facility] Procedure: 3552-3469 DX/SINUSES (PARANASAL)MIN 3VIEWS Exam Date: 02/23/19 Exam [...] MD 08 COPY TO: PARMINDER NARVAEZ C-Reactive Wuxhysj5402-24-10 21:19:00* Test Item Value Reference Range Interpretation Comments C-Reactive Protein (test code = 1988-5) 589 0-10 H Results confirmed ondilution.Performed at: [facility] [id number] [facility], [place], [place] [id number] Director: Prasanna Mishra MD, Phone: [phone] Scott & White Medical Center – PlanoUrine Rmzkpum4922-87-06 08:02:00* Test Item Value Reference Range Interpretation Comments Urine Culture (test code = 630-4) No Result Data Provided [facility] PlanoErythrocyte Sedimentation Snpn7303-68-10 09:56:00* Test Item Value Reference Range Interpretation Comments Erythrocyte Sedimentation Rate (test code = 4537-7) 80 0- 20 H [facility] PlanoDifferential Total Cells Counted 2019-02-20 08:47:00* Test Item Value Reference Range Interpretation Comments Differential Total Cells Counted (test code = Zain tial Total Cells Counted) 100 [facility] PlanoNeutrophils % (Manual)2019-02-20 08:47:00 * Test Item Value Reference Range Interpretation Comments Neutrophils % (Manual) (test code = 32841-3) 74 40-74 [facility] PlanoBand Neutrophils %2019-02-20 08:47:00* Test Item Value Reference Range Interpretation Comments Band Neutrophils % (test code = 764-1) 16 [facility] PlanoLymphocytes % (Manual)2019-02-20 08:47:00 * Test Item Value Reference Range Interpretation Comments Lymphocytes % (Manual) (test code = 737-7) 3 19-48 L [facility] PlanoMonocytes % (Manual)2019-02-20 08:47:00* Test Item Value Reference Range Interpretation Comments Monocytes % (Manual) (test code = 744-3) 7 3.4-9.0 [facility] PlanoPlatelet Ftznrokf9630-84-10 08:47:00* Test Item Value Reference Range Interpretation Comments Platelet Estimate (test code = 50816-8) SLIGHTLY DECREASED [facility] PlanoPoikilocytosis2019-11-05 08:47:00* Test Item Value Reference Range Interpretation Comments Poikilocytosis (test code = 779-9) SLIGHT [facility] PlanoAnisocytosis2019-11-05 08:47:00* Test Item Value Reference Range Interpretation Comments Anisocytosis (test code = 702-1) SLIGHT [facility] PlanoToxic Qetcioxdarj5593-08-84 08:47:00* Test Item Value Reference Range Interpretation Comments Toxic Granulation (test code = 803-7) MODERATE [facility] PlanoRed Cell Morphology Xjifxab3524-57-00 08:47:00* Test Item Value Reference Range Interpretation Comments Red Cell Morphology Comment (test code = 6742-1) NORMAL [facility] PlanoErythrocyte sedimentation rate by Westergren pqoriz5881-11-80 07:40:00* Test Item Value Reference Range Interpretation Comments Erythrocyte Sedimentation Rate (test code = 4537-7) 80 0- 20 [facility] Hospitalerum or plasma C reactive protein measurement (mass/volume)2019-02-20 07:40:00* Test Item Value Reference Range Interpretation Comments C-Reactive Protein (test code = 1988-5) 589 0-10 Results confirmed ondilution.Performed at: [facility] [address] [id number] Director: Prasanna Mishra MD, Phone: [phone] Scott & White Medical Center – PlanoManual blood band neutrophils form/100 wbkxorrizt6994-57-85 04:55:00* Test Item Value Reference Range Interpretation Comments Band Neutrophils % (test code = 764-1) 16 [facility] PlanoBlood poikilocytosis detection by light vcaihkdjou1759-49-04 04:55:00* Test Item Value Reference Range Interpretation Comments Poikilocytosis (test code = 779-9) SLIGHT [facility] PlanoBlood anisocytosis detection by light ogystmpqjw2714-62-24 04:55:00* Test Item Value Reference Range Interpretation Comments Anisocytosis (test code = 702-1) SLIGHT [facility] PlanoBlood toxic granules detection by light mmwozdypjv2699-55-18 04:55:00* Test Item Value Reference Range Interpretation Comments Toxic Granulation (test code = 803-7) MODERATE [facility] PlanoCT ABDOMEN/PELVIS IH7422-29-29 20:27:00 [facility] [address] [address] Patient Name: ROSA ISELA BENITEZ MR #: [id number] : Age/Sex: 49/F Req #: [id number] Adm Physician: PARMINDER NARVAEZ MD Ordered by: KATIE BOWEN MD Report #: [id number] [facility]Bed: [facility] Procedure: 4830-9610 CT/CT ABDOMEN/PELVIS WO Exam Date: 02/19/19 Exam Ti me: 1999 REPORT STATUS: Signed C T Abdomen and Pelvis without contrast INDICATION: Rule out infection, R/O INFECTION [id number] TECHNIQUE: Thin collimation axial images obtained [...] COPY TO: KATIE BOWEN MD Lactic Acid Jfcpu2679-40-29 08:35:00* Test Item Value Reference Range Interpretation Comments Lactic Acid Level (test code = Lactic Acid Level) 3.6 0.5- 2.0 HH Results repeated and called to MAGEN MOON RN at 0834 on 02/19/19 by Kari Patton. Read back and verified.[facility] PlanoFluoroscopic procedure less than one hour vkgupxkb1141-64-63 07:10:00* Test Item Value Reference Range Interpretation Comments Lactic Acid Level (test code = Lactic Acid Level) 3.6 0.5- 2.0 Results repeated and called to MAGEN MOON RN at 0834 on 02/19/19 by Kari Patton. Read back and verified.[facility] PlanoFOREARM LEFT 2 WXWF7417-92-61 03:17:00 [facility] [address] [address] Patient Name: ROSA ISELA BENITEZ MR #: [id number] : 1970 Age/Sex: 49/F Req #: [id number] Adm Physician: Ordered by: FUNMILAYO CALLOWAY MD Report #: [id number] Location: ER Room/Bed: Procedure: 1 104-0019 DX/FOREARM [...] MD FOREARM RIGHT 2 VIEW 2019-02-19 03:17:[address] [address] Patient Name: ROSA ISELA BENITEZ MR #: [id number] : 1970 Age/Sex: 49/F Req #: [id number] Adm Physician: Ordered by: FUNMILAYO CALLOWAY MD Report #: [id number] Location: ER Room/Bed: Procedure: 1 104-0018 DX/FOREARM [...] CALLOWAY MD CHEST SINGLE (PORTABLE) 2019-02-19 03:14:00 [address] [address] Patient Name: ROSA ISELA BENITEZ MR #: [id number] : 1970 Age/Sex: 49/F Req #: [id number] Adm Physician: Ordered by: FUNMILAYO CALLOWAY MD Report #: [id number] Location: ER Room/Bed: Procedure: 1 104-0021 DX/CHEST [...] on 02/19/2019 3:17 AM Dictated By: BRIANNA GRJIALVA DO 6 Transcribed By: BRENDON on 02/19/19316 COPY TO: FUNMILAYO CALLOWAY 3 + VIEWS DIHBB6756-42-67 03:13:00 [address], [place], [place] [address] Patient Name: ROSA ISELA BENITEZ MR #: [id number] : 1970 Age/Sex: 49/F Req #: [id number] Adm Physician: Ordered by: FUNMILAYO CALLOWAY MD Report #: [id number] Location: ER Room/Bed: Procedure: 1 104-0017 DX/ANKLE [...] TO: FUNMILAYO CALLOWAY MD KNEE RIGHT THREE MUOFZ6159-38-05 03:11:[address] [address] Patient Name: ROSA ISELA BENITEZ MR #: [id number] : Age/Sex: 49/F Req #: [id number] Adm Physician: Ordered by: FUNMILAYO CALLOWAY MD Report #: [id number] Location: ER Room/Bed: Procedure: 1 104-0016 DX/KNEE [...] on 02/19/19312 COPY TO: FUNMILAYO CALLOWAY MD [facility] BILAT 3-4VWS (+/- PELVIS) 2019-02-19 03:09:00 [address] [address] Patient Name: ROSA ISELA BENITEZ MR #: [id number] : 1970 Age/Sex: 49/F Req #: [id number] Adm Physician: Ordered by: FUNMILAYO CALLOWAY MD Report #: [id number] Location: ER Room/Bed: Procedure: 1 104-0020 DX/HIPS [...] 02/19/19310 COPY TO: FUNMILAYO CALLOWAY Bacterial urine yjsmozq9130-49-07 02:55:00* Test Item Value Reference Range Interpretation Comments Urine Culture (test code = 630-4) KLEBSIELLA PNEUMONIAE [facility] TexasCT CERVICAL SPINE BD1349-90-85 02:45:00 [facility] [address] [place] [address] Patient Name: ROSA ISELA BENITEZ MR #: [id number] : Age/Sex: 49/F Req #: [id number] Adm Physician: Ordered by: FUNMILAYO CALLOWAY MD Report #: [id number] Location: ER Room/Bed: Procedure: 1 104-0003 CT/CT [...] CALLOWAY MD CT BRAIN WO 2019-02-19 02:42:00 [address] [address] Patient Name: ROSA ISELA BENITEZ MR #: [id number] : 1970 Age/Sex: 49/F Req #: [id number] Adm Physician: Ordered by: FUNMILAYO CALLOWAY MD Report #: [id number] Location: ER Room/Bed: Procedure: 1 104-0002 CT/CT [...] COPY TO: FUNMILAYO CALLOWAY MD Creatine Kinase GB9215-75-72 02:23:00* Test Item Value Reference Range Interpretation Comments Creatine Kinase MB (test code = 28523-3) 0.60 0-5.0 [facility] Q9045-42-33 02:23:00* Test Item Value Reference Range Interpretation Comments Troponin I (test code = JKV6257) < 0.001 0-0.300 [facility] PlanoCreatine Pjokyu0401-87-28 02:11:00* Test Item Value Reference Range Interpretation Comments Creatine Kinase (test code = 2157-6) 17 29-168 L [facility] PlanoActivated Partial Thromboplast Time 2019-02-19 02:02:00* Test Item Value Reference Range Interpretation Comments Activated Partial Thromboplast Time (test code = 02675-2) 22.8 23.8-35.5 L [facility] PlanoProthrombin Gobh0138-27-22 02:01:00* Test Item Value Reference Range Interpretation Comments Prothrombin Time (test code = 5902-2) 11.9 11.9-14.5 [facility] PlanoProthromb Time International Ratio 2019-02-19 02:01:00* Test Item Value Reference Range Interpretation Comments Prothromb Time International Ratio (test code = 6301-6) 0.83 Oral Anticoagulant Therapy INR Values:1. Low Intensity Therapy 1.5 - 2.02 . Moderate Intensity Therapy 2.0 - 3.03. High Intensity Therapy(1) 2.5 - 3. 54. High Intensity Therapy(2) 3.0 - 4.05. Panic Value INR > 5.0 [facility] PlanoUrine Opiates Lrbgdo4443-30-82 02:01:00* Test Item Value Reference Range Interpretation Comments Urine Opiates Screen (test code = 19124-5) POSITIVE NEGATIVE H ALL TESTS PERFORMED MANUALLY ON [employer] TOX/SEE TEST This test provides only a sc reen. Positive results should be repeated by a confirmatory test. PO SITIVE TCABaylor Scott & White [facility] Center – PlanoUrine Barbiturates Screen 2019-02-19 02:01:00* Test Item Value Reference Range Interpretation Comments Urine Barbiturates Screen (test code = 791620244) NEGATIVE NEGA TIVE [facility] PlanoUrine Phencyclidine Bbdzcy0359-98-67 02:01:00* Test Item Value Reference Range Interpretation Comments Urine Phencyclidine Screen (test code = 31803-3) NEGATIVE NEGAT DAMIEN [facility] PlanoUrine Amphetamines Vsrlxo3743-84-52 02:01:00* Test Item Value Reference Range Interpretation Comments Urine Amphetamines Screen (test code = 28548-9) NEGATIVE NEGATI VE [facility] PlanoUrine Methamphetamines Vqwgqf4576-87-16 02:01:00* Test Item Value Reference Range Interpretation Comments Urine Methamphetamines Screen (test code = Urine Metha mphetamines Screen) NEGATIVE NEGATIVE [facility] PlanoUrine Benzodiazepines Gwghai0873-19-80 02:01:00* Test Item Value Reference Range Interpretation Comments Urine Benzodiazepines Screen (test code = 01089-0) POSITIVE NEG ATIVE H This test provides only a screen. Positive results should be repeated by a confi rmatory test.[facility] PlanoUrine Cocaine Screen 2019-02-19 02:01:00* Test Item Value Reference Range Interpretation Comments Urine Cocaine Screen (test code = 3398-5) NEGATIVE NEGATIVE [facility] Cannabinoids Zmuymt1352-87-57 02:01:00* Test Item Value Reference Range Interpretation Comments Urine Cannabinoids Screen (test code = 06015-8) NEGATIVE NEGATI VE THESE RESULTS ARE FOR MEDICAL TREATMENT ONLYTHIS REPORT CONTAINS UNCONFIR MED SCREENING RESULTS*POSITIVE RESULTS WILL BE CONFIRMED BY REFERENCE LAB UPON R EQUEST CUT-OFFDRUG CLASS CONCENTRATION ng/mLAmphetamines 1000Methamphetamines 1000Cocaine 300Opiate 300Phencyc lidine 25Cannabinoid 50Barbiturates 300Benzodiazepine 300Methadone 300[facility] TexasUrine Methadone Ydmoql4719-18-72 02:01:00* Test Item Value Reference Range Interpretation Comments Urine Methadone Screen (test code = 78719-9) POSITIVE NEGATIVE H This test provides only a screen. Positive results should be repeated by a confi rmatory test.THESE RESULTS ARE FOR MEDICAL TREATMENT ONLYTHIS REPORT CONT AINS UNCONFIRMED SCREENING RESULTS*POSITIVE RESULTS WILL BE CONFIRMED BY REFEREN CE LAB UPON REQUEST CUT-OFFDRUG CLASS CON CENTRATION ng/mLAmphetamines 1000Methamp hetamines 1000Cocaine Metabolite 300Opiate 300Phencyclidine 25Cannabinoid 50Barbiturates 300Benzodiazepine 300Methadone 30 0[facility] CenterUrine YWZ6184-92-65 02:01:00* Test Item Value Reference Range Interpretation Comments Urine WBC (test code = 5821-4) >50 0-5 H [facility] [id number] 02:01:00* Test Item Value Reference Range Interpretation Comments Urine RBC (test code = 59211-9) 6-10 0-5 H [facility] Xtrbbcoi0713-51-70 02:01:00* Test Item Value Reference Range Interpretation Comments Urine Bacteria (test code = 48770-8) MANY NONE H [facility] Epithelial Dcfjf3559-13-27 02:01:00 * Test Item Value Reference Range Interpretation Comments Urine Epithelial Cells (test code = 53972-2) FEW NONE [facility] Transitional Epithelial Cells 2019-02-19 02:01:00* Test Item Value Reference Range Interpretation Comments Urine Transitional Epithelial Cells (test code = 8249-5) FEW NONE H [facility]anoUrine Coarse Granular Anebx0212-18-64 02:01:00* Test Item Value Reference Range Interpretation Comments Urine Coarse Granular Casts (test code = 86149-7) 1-5 >0 [facility] Kbuuu2405-37-87 01:58:00* Test Item Value Reference Range Interpretation Comments Urine Color (test code = 5778-6) ORANGE YELLOW H [facility]anoUrine Labkrgi1004-09-86 01:58:00* Test Item Value Reference Range Interpretation Comments Urine Clarity (test code = 22629-9) CLOUDY CLEAR H [facility]anoUrine Specific Hwtwisk5084-69-09 01:58:00 * Test Item Value Reference Range Interpretation Comments Urine Specific [place] (test code = 5811-5) >=1.030 1.010-1.02 5 [facility]ano[facility] hJ2512-92-09 01:58:00* Test Item Value Reference Range Interpretation Comments Urine pH (test code = 62549-3) 6 5-7 [facility] Leukocyte Fvehooqa4437-61-38 01:58:00* Test Item Value Reference Range Interpretation Comments Urine Leukocyte Esterase (test code = 21835-9) SMALL NEGATIV E [facility] Gwekwyb8105-10-79 01:58:00* Test Item Value Reference Range Interpretation Comments Urine Nitrite (test code = 31869-4) POSITIVE NEGATIVE H [facility] Nbyfaca7035-99-00 01:58:00* Test Item Value Reference Range Interpretation Comments Urine Protein (test code = 63210-5) 1+ NEGATIVE H [facility] Glucose (UA)2019-02-19 01:58:00* Test Item Value Reference Range Interpretation Comments Urine Glucose (UA) (test code = 33007-9) 1+ NEGATIVE [facility] Bzncawg6692-17-56 01:58:00* Test Item Value Reference Range Interpretation Comments Urine Ketones (test code = 41856-8) TRACE NEGATIVE [facility] Ltbhmirfkslo8521-59-13 01:58:00* Test Item Value Reference Range Interpretation Comments Urine Urobilinogen (test code = 48296-0) 1 0.2-1 [facility] Kgypvbxrf4879-20-76 01:58:00* Test Item Value Reference Range Interpretation Comments Urine Bilirubin (test code = 1977-8) SMALL NEGATIVE [facility] Wcdfb1891-75-24 01:58:00* Test Item Value Reference Range Interpretation Comments Urine Blood (test code = 12266-4) TRACE NEGATIVE [facility] PlanoProthrombin time (PT) in platelet poor plasma by coagulation ytlda5336-76-74 00:28:00* Test Item Value Reference Range Interpretation Comments Prothrombin Time (test code = 5902-2) 11.9 11.9-14.5 [facility] PlanoINR in Platelet poor plasma by Coagulation emazl3579-81-11 00:28:00* Test Item Value Reference Range Interpretation Comments Prothromb Time International Ratio (test code = 6301-6) 0.83 Oral Anticoagulant Therapy INR Values:1. Low Intensity Therapy 1.5 - 2.02 . Moderate Intensity Therapy 2.0 - 3.03. High Intensity Therapy(1) 2.5 - 3. 54. High Intensity Therapy(2) 3.0 - 4.05. Panic Value INR > 5.0 [facility] PlanoActivated partial thromboplastin time (aPTT) in platelet poor plasma by coagulation dcdhs0579-02-28 00:28:00* Test Item Value Reference Range Interpretation Comments Activated Partial Thromboplast Time (test code = 20021-1) 22.8 23.8-35.5 [facility]anoUrine opiates screening fqlm2063-11-04 00:28:00* Test Item Value Reference Range Interpretation Comments Urine Opiates Screen (test code = 47838-3) POSITIVE NEGATIVE ALL TESTS PERFORMED MANUALLY ON [employer] TOX/SEE TEST This test provides only a sc reen. Positive results should be repeated by a confirmatory test. PO SITIVE TCABaylor [facility] & [facility] PlanoBarbiturates screen, urine 2019-02-19 00:28:00* Test Item Value Reference Range Interpretation Comments Urine Barbiturates Screen (test code = 536822933) NEGATIVE NEGA TIVE [facility] PlanoUrine phencyclidine detection by screening gjzunz2209-95-72 00:28:00* Test Item Value Reference Range Interpretation Comments Urine Phencyclidine Screen (test code = 67053-8) NEGATIVE NEGAT DAMIEN [facility] PlanoUrine amphetamines detection by screen method > 1000 ng/uV3599-71-03 00:28:00* Test Item Value Reference Range Interpretation Comments Urine Amphetamines Screen (test code = 30821-1) NEGATIVE NEGATI VE [facility] PlanoFluoroscopic procedure less than one hour eouxvaui1150-60-89 00:28:00* Test Item Value Reference Range Interpretation Comments Urine Methamphetamines Screen (test code = Urine Metha mphetamines Screen) NEGATIVE NEGATIVE [facility] PlanoUrine benzodiazepines detection by screening hpxcdg6891-41-94 00:28:00* Test Item Value Reference Range Interpretation Comments Urine Benzodiazepines Screen (test code = 07210-9) POSITIVE NEG ATIVE This test provides only a screen. Positive results should be repeated by a confi rmatory test.[facility]anoUrine cocaine measurement (mass/volume)2019-02-19 00:28:00* Test Item Value Reference Range Interpretation Comments Urine Cocaine Screen (test code = 3398-5) NEGATIVE NEGATIVE [facility] PlanoUrine cannabinoids detection by screening cjvouh2929-57-54 00:28:00* Test Item Value Reference Range Interpretation Comments Urine Cannabinoids Screen (test code = 98521-6) NEGATIVE NEGATI VE THESE RESULTS ARE FOR MEDICAL TREATMENT ONLYTHIS REPORT CONTAINS UNCONFIR MED SCREENING RESULTS*POSITIVE RESULTS WILL BE CONFIRMED BY REFERENCE LAB UPON R EQUEST CUT-OFFDRUG CLASS CONCENTRATION ng/mLAmphetamines 1000Methamphetamines 1000Cocaine 300Opiate 300Phencyc lidine 25Cannabinoid 50Barbiturates 300Benzodiazepine 300Methadone 300[facility] TexasUrine methadone gtzram8815-41-80 00:28:00* Test Item Value Reference Range Interpretation Comments Urine Methadone Screen (test code = 19999-9) POSITIVE NEGATIVE This test provides only a screen. Positive results should be repeated by a confi rmatory test.THESE RESULTS ARE FOR MEDICAL TREATMENT ONLYTHIS REPORT CONT AINS UNCONFIRMED SCREENING RESULTS*POSITIVE RESULTS WILL BE CONFIRMED BY REFEREN CE LAB UPON REQUEST CUT-OFFDRUG CLASS CON CENTRATION ng/mLAmphetamines 1000Methamp hetamines 1000Cocaine Metabolite 300Opiate 300Phencyclidine 25Cannabinoid 50Barbiturates 300Benzodiazepine 300Methadone 30 0[facility] PlanoTransitional cells detection in urine sediment by light daowvbejlw3272-33-73 00:28:00* Test Item Value Reference Range Interpretation Comments Urine Transitional Epithelial Cells (test code = 8249-5) FEW NONE [facility] PlanoCoarse granular casts detection in urine sediment by light hohitlalin6199-81-38 00:28:00* Test Item Value Reference Range Interpretation Comments Urine Coarse Granular Casts (test code = 19603-1) 1-5 >0 [facility] Hospitalerum or plasma creatine kinase measurement (enzymatic activity/volume)2019-02-19 00:28:00* Test Item Value Reference Range Interpretation Comments Creatine Kinase (test code = 2157-6) 17 29-168 [facility] Hospitalerum or plasma creatine kinase MB measurement (mass/volume)2019-02-19 00:28:00* Test Item Value Reference Range Interpretation Comments Creatine Kinase MB (test code = 46475-0) 0.60 0-5.0 [facility] PlanoTroponin I measurement by highly sensitive enzyme pujcjhfwzok6698-16-72 00:28:00* Test Item Value Reference Range Interpretation Comments Troponin I (test code = 77152-7) < 0.001 0-0.300 [facility] PlanoBedside Bjxwkpp6695-19-36 13:28:00* Test Item Value Reference Range Interpretation Comments Bedside Glucose (test code = 54106-3) 323 70-120 H Meter ID: [id number]. David's Georgetown HospitalBlood Culture 2019-02-12 20:11:00* Test Item Value Reference Range Interpretation Comments Blood Culture (test code = 67204900) NO GROWTH AFTER 5 DAYS, FINAL REPORT [facility] Hospitalodium Ncets4520-71-48 05:39:00* Test Item Value Reference Range Interpretation Comments Sodium Level (test code = 2951-2) 140 136-145 [facility] PlanoPotassium Qznyy9054-82-67 05:39:00* Test Item Value Reference Range Interpretation Comments Potassium Level (test code = 2823-3) 4.3 3.5-5.1 [facility] PlanoChloride Jzhni3919-55-26 05:39:00* Test Item Value Reference Range Interpretation Comments Chloride Level (test code = 2075-0) 104 98-107 [facility] PlanoCarbon Dioxide Wzkpi5648-46-21 05:39:00* Test Item Value Reference Range Interpretation Comments Carbon Dioxide Level (test code = 2028-9) 22 22-29 [facility] PlanoAnion Iqe5603-91-16 05:39:00* Test Item Value Reference Range Interpretation Comments Anion Gap (test code = 65219-0) 18.3 8-16 H [facility] PlanoBlood Urea Qpqfebkf8893-65-31 05:39:00* Test Item Value Reference Range Interpretation Comments Blood Urea Nitrogen (test code = 3094-0) 12 7-26 [facility] PlanoCreatinine2019-10-24 05:39:00* Test Item Value Reference Range Interpretation Comments Creatinine (test code = 2160-0) 0.76 0.57-1.11 [facility] PlanoBUN/Creatinine Nfapo1064-57-74 05:39:00* Test Item Value Reference Range Interpretation Comments BUN/Creatinine Ratio (test code = 3097-3) 16 6-25 [facility] PlanoEstimat Glomerular Filtration Rate 2019-02-08 05:39:00* Test Item Value Reference Range Interpretation Comments Estimat Glomerular Filtration Rate (test code = 851789806) > 60 >60 Ranges were taken from the National Kidney Disease Education Program and the [facility] Kidney Foundation literature.Reference ranges:60 or greater: Simirl03-56 ( for 3 consecutive months): Chronic kidney disease 15 or less: Kidney failureBaylor Scott & White Medical Center – PlanoGlucose Kpwse8896-53-78 05:39:00* Test Item Value Reference Range Interpretation Comments Glucose Level (test code = ZTP4389) 183 74-118 H [facility] PlanoCalcium Ivoed5015-97-12 05:39:00* Test Item Value Reference Range Interpretation Comments Calcium Level (test code = 43647-5) 9.1 8.4-10.2 [facility] PlanoPhosphorus Cgifv3738-08-53 05:39:00* Test Item Value Reference Range Interpretation Comments Phosphorus Level (test code = XSS8912) 4.3 2.3-4.7 [facility] PlanoMagnesium Eduno0208-24-98 05:39:00* Test Item Value Reference Range Interpretation Comments Magnesium Level (test code = 70663-5) 2.1 1.3-2.1 [facility] PlanoTotal Zxgtvpdvy1379-31-59 05:39:00* Test Item Value Reference Range Interpretation Comments Total Bilirubin (test code = 1975-2) 0.5 0.2-1.2 [facility] PlanoAspartate Amino Transf (AST/SGOT) 2019-02-08 05:39:00* Test Item Value Reference Range Interpretation Comments Aspartate Amino Transf (AST/SGOT) (test code = Aspartate Amino Transf (AST/SGOT)) 32 5-34 [facility] PlanoAlanine Aminotransferase (ALT/SGPT) 2019-02-08 05:39:00* Test Item Value Reference Range Interpretation Comments Alanine Aminotransferase (ALT/SGPT) (test code = 1742-6) 175 0-55 H [facility] PlanoTotal Azgfkxh2990-01-44 05:39:00* Test Item Value Reference Range Interpretation Comments Total Protein (test code = 2885-2) 6.3 6.5-8.1 L [facility] PlanoAlbumin2019-10-24 05:39:00* Test Item Value Reference Range Interpretation Comments Albumin (test code = 1751-7) 3.1 3.5-5.0 L [facility] PlanoGlobulin2019-10-24 05:39:00* Test Item Value Reference Range Interpretation Comments Globulin (test code = 85700-1) 3.2 2.3-3.5 [facility] PlanoAlbumin/Globulin Qxtxe7361-71-75 05:39:00 * Test Item Value Reference Range Interpretation Comments Albumin/Globulin Ratio (test code = 1759-0) 1.0 0.8-2.0 [facility] PlanoAlkaline Kcehutmmscd3660-23-69 05:39:00* Test Item Value Reference Range Interpretation Comments Alkaline Phosphatase (test code = 6768-6) 90 40-150 [facility] PlanoPhosphorus Pqcfa4113-08-15 05:39:00* Test Item Value Reference Range Interpretation Comments Phosphorus Level (test code = VXH7992) 4.3 2.3-4.7 [facility] PlanoWhite Blood Zfpll0917-71-91 05:11:00* Test Item Value Reference Range Interpretation Comments White Blood Count (test code = 6690-2) 16.37 4.8-10.8 H [facility] PlanoRed Blood Nhyow4567-67-47 05:11:00* Test Item Value Reference Range Interpretation Comments Red Blood Count (test code = 789-8) 3.58 3.6-5.1 L [facility] PlanoHemoglobin2019-10-24 05:11:00* Test Item Value Reference Range Interpretation Comments Hemoglobin (test code = 63195-9) 11.6 12.0-16.0 L [facility] PlanoHematocrit2019-10-24 05:11:00* Test Item Value Reference Range Interpretation Comments Hematocrit (test code = 4544-3) 36.3 34.2-44.1 [facility] PlanoMean Corpuscular Bderja3814-19-54 05:11:00* Test Item Value Reference Range Interpretation Comments Mean Corpuscular Volume (test code = 787-2) 101.4 81-99 H [facility] PlanoMean Corpuscular Fenmiwrmrn1012-37-51 05:11:00* Test Item Value Reference Range Interpretation Comments Mean Corpuscular Hemoglobin (test code = 785-6) 32.4 28-32 H [facility] PlanoMean Corpuscular Hemoglobin Concent 2019-02-08 05:11:00* Test Item Value Reference Range Interpretation Comments Mean Corpuscular Hemoglobin Concent (test code = 786-4) 32.0 31-35 [facility] PlanoRed Cell Distribution Ohmzs3714-58-87 05:11:00* Test Item Value Reference Range Interpretation Comments Red Cell Distribution Width (test code = 83752-9) 14.6 11.7 -14.4 H [facility] PlanoPlatelet Ldqbx6011-11-59 05:11:00* Test Item Value Reference Range Interpretation Comments Platelet Count (test code = 777-3) 394 140-360 H [facility] PlanoNeutrophils (%) (Auto)2019-02-08 05:11:00 * Test Item Value Reference Range Interpretation Comments Neutrophils (%) (Auto) (test code = 67902-5) 75.7 38.7-80.0 [facility] PlanoLymphocytes (%) (Auto)2019-02-08 05:11:00 * Test Item Value Reference Range Interpretation Comments Lymphocytes (%) (Auto) (test code = 736-9) 15.1 18.0-39.1 L [facility] PlanoMonocytes (%) (Auto)2019-02-08 05:11:00* Test Item Value Reference Range Interpretation Comments Monocytes (%) (Auto) (test code = 5905-5) 7.3 4.4-11.3 [facility]anoEosinophils (%) (Auto)2019-02-08 05:11:00 * Test Item Value Reference Range Interpretation Comments Eosinophils (%) (Auto) (test code = 713-8) 0.6 0.0-6.0 [facility] PlanoBasophils (%) (Auto)2019-02-08 05:11:00* Test Item Value Reference Range Interpretation Comments Basophils (%) (Auto) (test code = 706-2) 0.4 0.0-1.0 [facility] PlanoIM GRANULOCYTES %2019-02-08 05:11:00* Test Item Value Reference Range Interpretation Comments IM GRANULOCYTES % (test code = IM GRANULOCYTES %) 0.9 0.0- 1.0 [facility] PlanoNeutrophils # (Auto)2019-02-08 05:11:00* Test Item Value Reference Range Interpretation Comments Neutrophils # (Auto) (test code = 751-8) 12.4 2.1-6.9 H [facility] PlanoLymphocytes # (Auto)2019-02-08 05:11:00* Test Item Value Reference Range Interpretation Comments Lymphocytes # (Auto) (test code = 41126-8) 2.5 1.0-3.2 [facility] PlanoMonocytes # (Auto)2019-02-08 05:11:00* Test Item Value Reference Range Interpretation Comments Monocytes # (Auto) (test code = 742-7) 1.2 0.2-0.8 H [facility]anoEosinophils # (Auto)2019-02-08 05:11:00* Test Item Value Reference Range Interpretation Comments Eosinophils # (Auto) (test code = 711-2) 0.1 0.0-0.4 [facility] PlanoBasophils # (Auto)2019-02-08 05:11:00* Test Item Value Reference Range Interpretation Comments Basophils # (Auto) (test code = 704-7) 0.1 0.0-0.1 [facility] PlanoAbsolute Immature Granulocyte (auto 2019-02-08 05:11:00* Test Item Value Reference Range Interpretation Comments Absolute Immature Granulocyte (auto (anita t code = Absolute Immature Granulocyte (auto) 0.15 0-0.1 H [facility] PlanoPhosphorus ceowwpekcel6535-16-86 04:45:00 * Test Item Value Reference Range Interpretation Comments Phosphorus Level (test code = FFL3071) 4.3 2.3-4.7 [facility] PlanoUrine ZJX7021-58-49 21:35:00* Test Item Value Reference Range Interpretation Comments Urine WBC (test code = 5821-4) 0-5 0-5 [facility] PlanoUrine LDB6630-65-61 21:35:00* Test Item Value Reference Range Interpretation Comments Urine RBC (test code = 00349-1) NONE 0-5 [facility] PlanoUrine Gaxobofl1196-98-18 21:35:00* Test Item Value Reference Range Interpretation Comments Urine Bacteria (test code = 21240-8) MODERATE NONE H [facility] PlanoUrine Epithelial Zcnpj8344-26-40 21:35:00 * Test Item Value Reference Range Interpretation Comments Urine Epithelial Cells (test code = 46704-9) NONE NONE [facility] PlanoUrine Ahidv5912-88-32 21:19:00* Test Item Value Reference Range Interpretation Comments Urine Color (test code = 5778-6) YELLOW YELLOW [facility] PlanoUrine Ftvojqv8105-22-28 21:19:00* Test Item Value Reference Range Interpretation Comments Urine Clarity (test code = 67976-9) SL CLOUDY CLEAR [facility] PlanoUrine Specific Tpbqcra0277-58-74 21:19:00 * Test Item Value Reference Range Interpretation Comments Urine Specific [place] (test code = 5811-5) >=1.030 1.010-1.02 5 [facility] PlanoUrine oL6215-28-29 21:19:00* Test Item Value Reference Range Interpretation Comments Urine pH (test code = 92481-3) 6 5-7 [facility] PlanoUrine Leukocyte Spptbowr7739-78-62 21:19:00* Test Item Value Reference Range Interpretation Comments Urine Leukocyte Esterase (test code = 90678-4) NEGATIVE NEGATIV E [facility] PlanoUrine Ydowhoa9979-83-04 21:19:00* Test Item Value Reference Range Interpretation Comments Urine Nitrite (test code = 06222-4) NEGATIVE NEGATIVE [facility] PlanoUrine Bshcows3461-99-51 21:19:00* Test Item Value Reference Range Interpretation Comments Urine Protein (test code = 34352-4) NEGATIVE NEGATIVE [facility] PlanoUrine Glucose (UA)2019-02-07 21:19:00* Test Item Value Reference Range Interpretation Comments Urine Glucose (UA) (test code = 43403-1) NEGATIVE NEGATIVE [facility] PlanoUrine Eujqffj3313-23-58 21:19:00* Test Item Value Reference Range Interpretation Comments Urine Ketones (test code = 97739-1) NEGATIVE NEGATIVE [facility] Oiaplmvqbjgz3378-75-92 21:19:00* Test Item Value Reference Range Interpretation Comments Urine Urobilinogen (test code = 05097-4) 0.2 0.2-1 [facility]anoUrine Ydhpkwaip1040-14-69 21:19:00* Test Item Value Reference Range Interpretation Comments Urine Bilirubin (test code = 1977-8) NEGATIVE NEGATIVE [facility] PlanoUrine Nzbsn0743-13-04 21:19:00* Test Item Value Reference Range Interpretation Comments Urine Blood (test code = 24453-2) NEGATIVE NEGATIVE [facility] PlanoUrine Japd7926-11-83 21:18:00* Test Item Value Reference Range Interpretation Comments Urine Test (test code = 2106-3) NEGATIVE NEGATIVE [facility] Imwz7110-62-23 21:18:00* Test Item Value Reference Range Interpretation Comments Urine Test (test code = 2106-3) NEGATIVE NEGATIVE [facility] PlanoUrine human chorionic gonadotropin (hCG) urtiptxpk7544-36-49 20:45:00* Test Item Value Reference Range Interpretation Comments Urine Test (test code = 2106-3) NEGATIVE NEGATIVE [facility] PlanoLactic Acid Bjzmb5346-99-88 20:04:00* Test Item Value Reference Range Interpretation Comments Lactic Acid Level (test code = Lactic Acid Level) 1.6 0.5- 2.0 [facility] PlanoCHES SINGLE (PORTABLE)2019-02-07 19:03:00 [place] [address] Patient Name: ROSA ISELA BENITEZ MR #: [id number] : 1970 Age/Sex: 49/F Req #: [id number] Adm Physician: Ordered by: ESTER PASTOR MD, MD Report #: [id number] Location: ER Room/Bed: Procedure: 1023-0 072 DX/CHEST [...] 02/07/191902 COPY TO: ESTER PASTOR B-Type Natriuretic Jvtbsgk7559-99-59 18:26:00* Test Item Value Reference Range Interpretation Comments B-Type Natriuretic Peptide (test code = 56820-1) 58.7 0-100 [facility] PlanoCreatine Kinase GF0130-38-70 18:26:00* Test Item Value Reference Range Interpretation Comments Creatine Kinase MB (test code = 42521-8) 3.70 0-5.0 [facility] PlanoTroponin [id number] 18:26:00* Test Item Value Reference Range Interpretation Comments Troponin I (test code = EWM9758) 0.011 0-0.300 [facility] PlanoB-Type Natriuretic Abwohfp7570-47-54 18:26:00* Test Item Value Reference Range Interpretation Comments B-Type Natriuretic Peptide (test code = 14622-6) 58.7 0-100 [facility] PlanoCreatine Otumzb9044-46-12 18:16:00* Test Item Value Reference Range Interpretation Comments Creatine Kinase (test code = 2157-6) 117 29-168 [facility] PlanoLipase2019-10-23 18:16:00* Test Item Value Reference Range Interpretation Comments Lipase (test code = 3040-3) [facility] PlanoLipase2019-10-23 18:16:00* Test Item Value Reference Range Interpretation Comments Lipase (test code = 3040-3) [facility] PlanoProthrombin Nqdm9418-60-88 18:05:00* Test Item Value Reference Range Interpretation Comments Prothrombin Time (test code = 5902-2) 12.4 11.9-14.5 [facility] PlanoProthromb Time International Ratio 2019-02-07 18:05:00* Test Item Value Reference Range Interpretation Comments Prothromb Time International Ratio (test code = 6301-6) 0.88 Oral Anticoagulant Therapy INR Values:1. Low Intensity Therapy 1.5 - 2.02 . Moderate Intensity Therapy 2.0 - 3.03. High Intensity Therapy(1) 2.5 - 3. 54. High Intensity Therapy(2) 3.0 - 4.05. Panic Value INR > 5.0 [facility] PlanoActivated Partial Thromboplast Time 2019-02-07 18:05:00* Test Item Value Reference Range Interpretation Comments Activated Partial Thromboplast Time (test code = 66046-3) 24.1 23.8-35.5 [facility] PlanoBNP Swa-bTkg6881-24-23 15:15:00* Test Item Value Reference Range Interpretation Comments B-Type Natriuretic Peptide (test code = 19806-0) 58.7 0-100 [facility] Hospitalerum or plasma lipase measurement (enzymatic activity/volume)2019-02-07 15:15:00* Test Item Value Reference Range Interpretation Comments Lipase (test code = 3040-3) 22 8-78 [facility] PlanoWhite Blood Doztl2617-17-01 06:17:00* Test Item Value Reference Range Interpretation Comments White Blood Count (test code = 6690-2) 15.04 4.8-10.8 H [facility] PlanoRed Blood Pymoc8179-98-55 06:17:00* Test Item Value Reference Range Interpretation Comments Red Blood Count (test code = 789-8) 3.84 3.6-5.1 [facility]anoHemoglobin2019-10-14 06:17:00* Test Item Value Reference Range Interpretation Comments Hemoglobin (test code = 58838-8) 12.6 12.0-16.0 [facility] PlanoHematocrit2019-10-14 06:17:00* Test Item Value Reference Range Interpretation Comments Hematocrit (test code = 4544-3) 37.6 34.2-44.1 [facility] PlanoMean Corpuscular Smixpp1180-28-83 06:17:00* Test Item Value Reference Range Interpretation Comments Mean Corpuscular Volume (test code = 787-2) 97.9 81-99 [facility] PlanoMean Corpuscular Tnzzmmbcxp5481-25-08 06:17:00* Test Item Value Reference Range Interpretation Comments Mean Corpuscular Hemoglobin (test code = 785-6) 32.8 28-32 H [facility] PlanoMean Corpuscular Hemoglobin Concent 2019-01-29 06:17:00* Test Item Value Reference Range Interpretation Comments Mean Corpuscular Hemoglobin Concent (test code = 786-4) 33.5 31-35 [facility] PlanoRed Cell Distribution Qhfjh8105-18-13 06:17:00* Test Item Value Reference Range Interpretation Comments Red Cell Distribution Width (test code = 44474-4) 13.6 11.7 -14.4 [facility] PlanoPlatelet Hllcx0546-41-64 06:17:00* Test Item Value Reference Range Interpretation Comments Platelet Count (test code = 777-3) 445 140-360 H [facility]anoNeutrophils (%) (Auto)2019-01-29 06:17:00 * Test Item Value Reference Range Interpretation Comments Neutrophils (%) (Auto) (test code = 59188-3) 71.6 38.7-80.0 [facility] PlanoLymphocytes (%) (Auto)2019-01-29 06:17:00 * Test Item Value Reference Range Interpretation Comments Lymphocytes (%) (Auto) (test code = 736-9) 20.3 18.0-39.1 [facility] PlanoMonocytes (%) (Auto)2019-01-29 06:17:00* Test Item Value Reference Range Interpretation Comments Monocytes (%) (Auto) (test code = 5905-5) 6.1 4.4-11.3 [facility]anoEosinophils (%) (Auto)2019-01-29 06:17:00 * Test Item Value Reference Range Interpretation Comments Eosinophils (%) (Auto) (test code = 713-8) 0.4 0.0-6.0 [facility]anoBasophils (%) (Auto)2019-01-29 06:17:00* Test Item Value Reference Range Interpretation Comments Basophils (%) (Auto) (test code = 706-2) 0.4 0.0-1.0 [facility] PlanoIM GRANULOCYTES %2019-01-29 06:17:00* Test Item Value Reference Range Interpretation Comments IM GRANULOCYTES % (test code = IM GRANULOCYTES %) 1.2 0.0- 1.0 H [facility]anoNeutrophils # (Auto)2019-01-29 06:17:00* Test Item Value Reference Range Interpretation Comments Neutrophils # (Auto) (test code = 751-8) 10.8 2.1-6.9 H [facility] PlanoLymphocytes # (Auto)2019-01-29 06:17:00* Test Item Value Reference Range Interpretation Comments Lymphocytes # (Auto) (test code = 28278-5) 3.1 1.0-3.2 [facility]anoMonocytes # (Auto)2019-01-29 06:17:00* Test Item Value Reference Range Interpretation Comments Monocytes # (Auto) (test code = 742-7) 0.9 0.2-0.8 H [facility]anoEosinophils # (Auto)2019-01-29 06:17:00* Test Item Value Reference Range Interpretation Comments Eosinophils # (Auto) (test code = 711-2) 0.1 0.0-0.4 [facility]anoBasophils # (Auto)2019-01-29 06:17:00* Test Item Value Reference Range Interpretation Comments Basophils # (Auto) (test code = 704-7) 0.1 0.0-0.1 [facility] PlanoAbsolute Immature Granulocyte (auto 2019-01-29 06:17:00* Test Item Value Reference Range Interpretation Comments Absolute Immature Granulocyte (auto (anita t code = Absolute Immature Granulocyte (auto) 0.18 0-0.1 H [facility] Hospitalodium Ceykv0664-05-81 06:12:00* Test Item Value Reference Range Interpretation Comments Sodium Level (test code = 2951-2) 138 136-145 [facility] PlanoPotassium Ekexn1337-15-04 06:12:00* Test Item Value Reference Range Interpretation Comments Potassium Level (test code = 2823-3) 3.5 3.5-5.1 [facility] PlanoChloride Zqabq5873-02-81 06:12:00* Test Item Value Reference Range Interpretation Comments Chloride Level (test code = 2075-0) 102 98-107 [facility] PlanoCarbon Dioxide Wbcpu6139-22-30 06:12:00* Test Item Value Reference Range Interpretation Comments Carbon Dioxide Level (test code = 2028-9) 27 22-29 [facility] PlanoAnion Jid5147-41-48 06:12:00* Test Item Value Reference Range Interpretation Comments Anion Gap (test code = 10433-6) 12.5 8-16 [facility] PlanoBlood Urea Madbsepj9533-26-56 06:12:00* Test Item Value Reference Range Interpretation Comments Blood Urea Nitrogen (test code = 3094-0) 13 7-26 [facility] PlanoCreatinine2019-10-14 06:12:00* Test Item Value Reference Range Interpretation Comments Creatinine (test code = 2160-0) 0.97 0.57-1.11 [facility] PlanoBUN/Creatinine Vnrfe4332-90-45 06:12:00* Test Item Value Reference Range Interpretation Comments BUN/Creatinine Ratio (test code = 3097-3) 13 6- [facility] PlanoEstimat Glomerular Filtration Rate 2019-01-29 06:12:00* Test Item Value Reference Range Interpretation Comments Estimat Glomerular Filtration Rate (test code = 870231013) > 60 >60 Ranges were taken from the National Kidney Disease Education Program and the [facility] americ[facility] healthcare systemsal Kidney Foundation literature.Reference ranges:60 or greater: Rcsugl53-35 ( for 3 consecutive months): Chronic kidney disease 15 or less: Kidney failureBaylor Scott & White Medical Center – PlanoGlucose Fokew0614-26-65 06:12:00* Test Item Value Reference Range Interpretation Comments Glucose Level (test code = HID8819) 176 74-118 H [facility] PlanoCalcium Atvus2081-14-95 06:12:00* Test Item Value Reference Range Interpretation Comments Calcium Level (test code = 24882-2) 9.1 8.4-10.2 [facility] PlanoTotal Hzegqfbvb1425-15-81 06:12:00* Test Item Value Reference Range Interpretation Comments Total Bilirubin (test code = 1975-2) 0.3 0.2-1.2 [facility] PlanoAspartate Amino Transf (AST/SGOT) 2019-01-29 06:12:00* Test Item Value Reference Range Interpretation Comments Aspartate Amino Transf (AST/SGOT) (test code = Aspartate Amino Transf (AST/SGOT)) 33 5-34 [facility] PlanoAlanine Aminotransferase (ALT/SGPT) 2019-01-29 06:12:00* Test Item Value Reference Range Interpretation Comments Alanine Aminotransferase (ALT/SGPT) (test code = 1742-6) 34 0-55 [facility] PlanoTotal Pbyfisl9457-21-95 06:12:00* Test Item Value Reference Range Interpretation Comments Total Protein (test code = 2885-2) 6.2 6.5-8.1 L [facility] PlanoAlbumin2019-10-14 06:12:00* Test Item Value Reference Range Interpretation Comments Albumin (test code = 1751-7) 3.0 3.5-5.0 L [facility] PlanoGlobulin2019-10-14 06:12:00* Test Item Value Reference Range Interpretation Comments Globulin (test code = 64377-1) 3.2 2.3-3.5 [facility] PlanoAlbumin/Globulin Sjkah1562-75-79 06:12:00 * Test Item Value Reference Range Interpretation Comments Albumin/Globulin Ratio (test code = 1759-0) 0.9 0.8-2.0 [facility] PlanoAlkaline Avvbcqhpeyq5068-27-05 06:12:00* Test Item Value Reference Range Interpretation Comments Alkaline Phosphatase (test code = 6768-6) 74 40-150 [facility] PlanoBedside Giekyst5643-48-37 21:06:00* Test Item Value Reference Range Interpretation Comments Bedside Glucose (test code = 15266-8) 181 70-120 H Meter ID: [id number]. David's Georgetown HospitalMagnesium Level 2019-01-28 06:36:00* Test Item Value Reference Range Interpretation Comments Magnesium Level (test code = 39106-2) 2.2 1.3-2.1 H [facility] PlanoCHEST 2 HTWYB1345-49-09 10:04:00 [facility] [address] [address] Patient Name: ROSA ISELA BENITEZ MR #: [id number] : Age/Sex: 48/F Req #: [id number] Adm Physician: Ordered by: SHEY CORONEL MD Report #: [id number] Location: ER Room/Bed: Procedure: 1012-0 009 DX/CHEST [...] COPY TO: SHEY CORONEL MD CT ABDOMEN/PELVIS GZ5422-60-18 08:39:[address] [address] Patient Name: ROSA ISELA BENITEZ MR #: [id number] : 1970 Age/Sex: 48/F [facility] #: [id number] [facility] Physician: Ordered by: SHEY CORONEL MD Report #: [id number] Location: ER Room/Bed: Procedure: 1012-[address]/CT [...] COPY TO: SHEY CORONEL MD Creatine Kinase YH7688-69-43 08:23:00* Test Item Value Reference Range Interpretation Comments Creatine Kinase MB (test code = 94302-1) 4.10 0-5.0 [facility] PlanoTroponin J6699-33-13 08:23:00* Test Item Value Reference Range Interpretation Comments Troponin I (test code = ETC7981) 0.014 0-0.300 [facility] PlanoCreatine Kvnpvy0975-95-15 08:18:00* Test Item Value Reference Range Interpretation Comments Creatine Kinase (test code = 2157-6) 76 29-168 [facility] PlanoUrine UKJ6565-69-63 08:11:00* Test Item Value Reference Range Interpretation Comments Urine WBC (test code = 5821-4) 0-5 0-5 [facility] PlanoUrine MZN9968-15-99 08:11:00* Test Item Value Reference Range Interpretation Comments Urine RBC (test code = 32101-1) 0-5 0-5 [facility] PlanoUrine Pkugzbjw2216-11-35 08:11:00* Test Item Value Reference Range Interpretation Comments Urine Bacteria (test code = 24868-0) RARE NONE [facility] PlanoUrine Epithelial Qvpgk5011-47-88 08:11:00 * Test Item Value Reference Range Interpretation Comments Urine Epithelial Cells (test code = 98158-7) MODERATE NONE [facility] PlanoUrine Nzsvy0230-34-27 08:01:00* Test Item Value Reference Range Interpretation Comments Urine Color (test code = 5778-6) YELLOW YELLOW [facility] PlanoUrine Fspstpk7206-13-62 08:01:00* Test Item Value Reference Range Interpretation Comments Urine Clarity (test code = 02171-5) CLEAR CLEAR [facility] Specific Adpyrug2747-41-62 08:01:00 * Test Item Value Reference Range Interpretation Comments Urine Specific [place] (test code = 5811-5) 1.010 1.010-1.02 5 [facility] PlanoUrine yN9785-26-03 08:01:00* Test Item Value Reference Range Interpretation Comments Urine pH (test code = 78429-8) 6.5 5-7 [facility] Leukocyte Yysovpww3777-43-74 08:01:00* Test Item Value Reference Range Interpretation Comments Urine Leukocyte Esterase (test code = 22227-9) NEGATIVE NEGATIV E [facility] Mcrdnpg8542-10-91 08:01:00* Test Item Value Reference Range Interpretation Comments Urine Nitrite (test code = 36768-0) NEGATIVE NEGATIVE [facility] Celgjms4268-67-72 08:01:00* Test Item Value Reference Range Interpretation Comments Urine Protein (test code = 06590-9) NEGATIVE NEGATIVE [facility] Glucose (UA)2019-01-27 08:01:00* Test Item Value Reference Range Interpretation Comments Urine Glucose (UA) (test code = 09825-4) 2+ NEGATIVE H [facility] Glmlbno8034-89-12 08:01:00* Test Item Value Reference Range Interpretation Comments Urine Ketones (test code = 41596-2) NEGATIVE NEGATIVE [facility] Yrvwtwbtnhxv5859-70-75 08:01:00* Test Item Value Reference Range Interpretation Comments Urine Urobilinogen (test code = 69624-1) 0.2 0.2-1 [facility] Halssnfmx9600-93-48 08:01:00* Test Item Value Reference Range Interpretation Comments Urine Bilirubin (test code = 1977-8) NEGATIVE NEGATIVE [facility] Ffkug5239-18-23 08:01:00* Test Item Value Reference Range Interpretation Comments Urine Blood (test code = 37163-2) NEGATIVE NEGATIVE [facility] PlanoBedside Btgqdio8543-08-77 11:45:00* Test Item Value Reference Range Interpretation Comments Bedside Glucose (test code = 85775-9) 108 70-120 Meter ID: [id number] Hermann Orthopedic & Spine Hospitalodium Level 2018-11-29 06:48:00* Test Item Value Reference Range Interpretation Comments Sodium Level (test code = 2951-2) 134 136-145 L [facility] PlanoPotassium Rlxyo2259-59-06 06:48:00* Test Item Value Reference Range Interpretation Comments Potassium Level (test code = 2823-3) 3.8 3.5-5.1 [facility] PlanoChloride Xooqw6915-60-60 06:48:00* Test Item Value Reference Range Interpretation Comments Chloride Level (test code = 2075-0) 101 98-107 [facility] PlanoCarbon Dioxide Diuze8976-67-55 06:48:00* Test Item Value Reference Range Interpretation Comments Carbon Dioxide Level (test code = 2028-9) 23 22-29 [facility] PlanoAnion Ibp4780-89-44 06:48:00* Test Item Value Reference Range Interpretation Comments Anion Gap (test code = 20469-6) 13.8 8-16 [facility] PlanoBlood Urea Lgaedafo3613-72-52 06:48:00* Test Item Value Reference Range Interpretation Comments Blood Urea Nitrogen (test code = 3094-0) 8 7-26 [facility] PlanoCreatinine2019-08-14 06:48:00* Test Item Value Reference Range Interpretation Comments Creatinine (test code = 2160-0) 0.83 0.57-1.11 [facility] PlanoBUN/Creatinine Ovhgg6396-39-70 06:48:00* Test Item Value Reference Range Interpretation Comments BUN/Creatinine Ratio (test code = 3097-3) 10 6-25 [facility] PlanoEstimat Glomerular Filtration Rate 2018-11-29 06:48:00* Test Item Value Reference Range Interpretation Comments Estimat Glomerular Filtration Rate (test code = 925283651) > 60 >60 Ranges were taken from the National Kidney Disease Education Program and the [facility] Hospitalal Kidney Foundation literature.Reference ranges:60 or greater: Mqwfbk08-56 ( for 3 consecutive months): Chronic kidney disease 15 or less: Kidney failureBaylor Scott & [facility] Center – PlanoGlucose Zpnws8464-22-78 06:48:00* Test Item Value Reference Range Interpretation Comments Glucose Level (test code = DOC7324) 128 74-118 H [facility] PlanoCalcium Jkrwg9546-70-54 06:48:00* Test Item Value Reference Range Interpretation Comments Calcium Level (test code = 73994-8) 9.2 8.4-10.2 [facility] PlanoTotal Itunwmyrx0181-29-58 06:48:00* Test Item Value Reference Range Interpretation Comments Total Bilirubin (test code = 1975-2) 0.4 0.2-1.2 [facility] PlanoAspartate Amino Transf (AST/SGOT) 2018-11-29 06:48:00* Test Item Value Reference Range Interpretation Comments Aspartate Amino Transf (AST/SGOT) (test code = Aspartate Amino Transf (AST/SGOT)) 42 5-34 H [facility] PlanoAlanine Aminotransferase (ALT/SGPT) 2018-11-29 06:48:00* Test Item Value Reference Range Interpretation Comments Alanine Aminotransferase (ALT/SGPT) (test code = 1742-6) 76 0-55 H [facility] PlanoTotal Unraroo3593-45-85 06:48:00* Test Item Value Reference Range Interpretation Comments Total Protein (test code = 2885-2) 6.9 6.5-8.1 [facility] PlanoAlbumin2019-08-14 06:48:00* Test Item Value Reference Range Interpretation Comments Albumin (test code = 1751-7) 3.3 3.5-5.0 L [facility] PlanoGlobulin2019-08-14 06:48:00* Test Item Value Reference Range Interpretation Comments Globulin (test code = 91918-6) 3.6 2.3-3.5 H [facility] PlanoAlbumin/Globulin Tbjih7341-52-46 06:48:00 * Test Item Value Reference Range Interpretation Comments Albumin/Globulin Ratio (test code = 1759-0) 0.9 0.8-2.0 [facility] PlanoAlkaline Tqrpqifdegh0366-01-32 06:48:00* Test Item Value Reference Range Interpretation Comments Alkaline Phosphatase (test code = 6768-6) 324 40-150 H [facility] PlanoWhite Blood Serzt2045-32-83 06:15:00* Test Item Value Reference Range Interpretation Comments White Blood Count (test code = 6690-2) 13.02 4.8-10.8 H [facility] PlanoRed Blood Eruej3584-62-70 06:15:00* Test Item Value Reference Range Interpretation Comments Red Blood Count (test code = 789-8) 4.28 3.6-5.1 [facility] PlanoHemoglobin2019-08-14 06:15:00* Test Item Value Reference Range Interpretation Comments Hemoglobin (test code = 20525-4) 14.8 12.0-16.0 [facility] PlanoHematocrit2019-08-14 06:15:00* Test Item Value Reference Range Interpretation Comments Hematocrit (test code = 4544-3) 46.0 34.2-44.1 H [facility] PlanoMean Corpuscular Nefstg2388-02-09 06:15:00* Test Item Value Reference Range Interpretation Comments Mean Corpuscular Volume (test code = 787-2) 107.5 81-99 H [facility] PlanoMean Corpuscular Wihwmqkrpk4626-84-90 06:15:00* Test Item Value Reference Range Interpretation Comments Mean Corpuscular Hemoglobin (test code = 785-6) 34.6 28-32 H [facility] PlanoMean Corpuscular Hemoglobin Concent 2018-11-29 06:15:00* Test Item Value Reference Range Interpretation Comments Mean Corpuscular Hemoglobin Concent (test code = 786-4) 32.2 31-35 [facility] PlanoRed Cell Distribution Bkuhh6642-61-39 06:15:00* Test Item Value Reference Range Interpretation Comments Red Cell Distribution Width (test code = 19778-3) 14.1 11.7 -14.4 [facility] PlanoPlatelet Saanm1353-41-76 06:15:00* Test Item Value Reference Range Interpretation Comments Platelet Count (test code = 777-3) 359 140-360 [facility] PlanoNeutrophils (%) (Auto)2018-11-29 06:15:00 * Test Item Value Reference Range Interpretation Comments Neutrophils (%) (Auto) (test code = 28269-9) 64.4 38.7-80.0 [facility] PlanoLymphocytes (%) (Auto)2018-11-29 06:15:00 * Test Item Value Reference Range Interpretation Comments Lymphocytes (%) (Auto) (test code = 736-9) 20.7 18.0-39.1 [facility] PlanoMonocytes (%) (Auto)2018-11-29 06:15:00* Test Item Value Reference Range Interpretation Comments Monocytes (%) (Auto) (test code = 5905-5) 8.8 4.4-11.3 [facility] PlanoEosinophils (%) (Auto)2018-11-29 06:15:00 * Test Item Value Reference Range Interpretation Comments Eosinophils (%) (Auto) (test code = 713-8) 3.1 0.0-6.0 [facility] PlanoBasophils (%) (Auto)2018-11-29 06:15:00* Test Item Value Reference Range Interpretation Comments Basophils (%) (Auto) (test code = 706-2) 1.2 0.0-1.0 H [facility] PlanoIM GRANULOCYTES %2018-11-29 06:15:00* Test Item Value Reference Range Interpretation Comments IM GRANULOCYTES % (test code = IM GRANULOCYTES %) 1.8 0.0- 1.0 H [facility] PlanoNeutrophils # (Auto)2018-11-29 06:15:00* Test Item Value Reference Range Interpretation Comments Neutrophils # (Auto) (test code = 751-8) 8.4 2.1-6.9 H [facility] PlanoLymphocytes # (Auto)2018-11-29 06:15:00* Test Item Value Reference Range Interpretation Comments Lymphocytes # (Auto) (test code = 59989-9) 2.7 1.0-3.2 [facility] PlanoMonocytes # (Auto)2018-11-29 06:15:00* Test Item Value Reference Range Interpretation Comments Monocytes # (Auto) (test code = 742-7) 1.2 0.2-0.8 H [facility] PlanoEosinophils # (Auto)2018-11-29 06:15:00* Test Item Value Reference Range Interpretation Comments Eosinophils # (Auto) (test code = 711-2) 0.4 0.0-0.4 [facility] PlanoBasophils # (Auto)2018-11-29 06:15:00* Test Item Value Reference Range Interpretation Comments Basophils # (Auto) (test code = 704-7) 0.2 0.0-0.1 H [facility] PlanoAbsolute Immature Granulocyte (auto 2018-11-29 06:15:00* Test Item Value Reference Range Interpretation Comments Absolute Immature Granulocyte (auto (anita t code = Absolute Immature Granulocyte (auto) 0.24 0-0.1 H [facility] PlanoUS EXTREMITY GONZALES EOG-OJJ5768-05-09 16:58:00 [place] [address] Patient Name: ROSA ISELA BENITEZ MR #: [id number] : 1970 Age/Sex: 48/F Req #: [id number] Adm Physician: PARMINDER NARVAEZ MD Ordered by: KATIE BOWEN MD Report #: [id number] Location: MED/SURG2 Room/Bed: [facility] Procedure: [id number] US/US EXTREMITY GONZALES NON-VAS Exam Date: 11/24/18 [...] Interpretation Comments Blood Culture (test code = 94858707) NO GROWTH AFTER 5 DAYS, FINAL REPORT [facility] PlanoBlood Aledctg6336-59-79 19:49:00* Test Item Value Reference Range Interpretation Comments Blood Culture (test code = 11978782) NO GROWTH AFTER 5 DAYS, FINAL REPORT [facility] PlanoUS ESBDG3796-54-06 08:05:00 [place] [address] Patient Name: ROSA ISELA BENITEZ MR #: [id number] : Age/Sex: 48/F Req #: [id number] Adm Physician: PARMINDER NARVAEZ MD Ordered by: PARMINDER NARVAEZ MD Report #: [id number] Location: MED/SURG2 Room/Bed: [facility] Procedure: [id number] US/US LIVER Exam Date: 11/21/18 Exam Time: [...] 8 COPY TO: JING NARVAEZ MD Magnesium Hqcfm4146-17-82 06:02:00* Test Item Value Reference Range Interpretation Comments Magnesium Level (test code = 67981-4) 2.1 1.3-2.1 [facility] XRAY LINE VPALIRAJM1256-01-95 17:01:00 [place] [address] [place] [address] Patient Name: ROSA ISELA BENITEZ MR #: [id number] : 1970 Age/Sex: 48/F Req #: [id number] Adm Physician: PARMINDER NARVAEZ MD Ordered by: PARMINDER NARVAEZ MD Report #: [id number] Location: MED/SURG2 Room/Bed: [facility] Procedure: [id number] DX/CHEST XRAY LINE PLACEMENT Exam Date: 11/18/18 [...] 5:02 PM Dictated By: ZURI OTTO MD [facility] Signed By: ZURI OTTO MD on 11/18/181701 Transcribed By: BRENDON on 1701 COPY TO: PARMINDER NARVAEZ MD CT FOOT RIGHT SQ7058-93-43 20:35:00 [place] [address] Patient Name: ROSA ISELA BENITEZ MR #: [id number] : 1970 Age/Sex: 48/F Req #: [id number] Adm Physician: Ordered by: DIANNE BUSH MD Report #: [id number] Location: ER Room/Bed: Procedure: CT/CT FOOT RIGHT [...] COPY TO: DIANNE BUSH MD Lactic Acid Wcdas6876-44-07 19:20:00* Test Item Value Reference Range Interpretation Comments Lactic Acid Level (test code = Lactic Acid Level) 17.3 4.5- 19.8 [facility]anoL[facility] Acid Uuwam5325-15-37 19:20:00* Test Item Value Reference Range Interpretation Comments Lactic Acid Level (test code = Lactic Acid Level) 17.3 4.5- 19.8 [facility]anoFOOT RIGHT CGBDVKXF0209-59-33 18:47:00 [facility] [address] [address] Patient Name: ROSA ISELA BENITEZ MR #: [id number] : Age/Sex: 48/F Req #: [id number] Adm Physician: Ordered by: DIANNE BUSH MD Report #: [id number] Location: ER Room/Bed: Procedure: 73 DX/FOOT RIGHT [...] 11/17/181848 COPY TO: DIANNE BUSH MD Bedside Othevqy4769-95-74 07:45:00* Test Item Value Reference Range Interpretation Comments Bedside Glucose (test code = 22975-6) 137 70-120 H Meter ID: [id number] [facility] TexasBlood Culture 2018-04-14 16:36:00* Test Item Value Reference Range Interpretation Comments Blood Culture (test code = 82425475) NO GROWTH AFTER 5 DAYS, FINAL REPORT [facility] Zgopn8122-49-27 05:18:00* Test Item Value Reference Range Interpretation Comments Sodium Level (test code = 2951-2) 136 136-145 [facility]anoPotassium Fpmkv4957-53-01 05:18:00* Test Item Value Reference Range Interpretation Comments Potassium Level (test code = 2823-3) 3.3 3.5-5.1 L [facility] PlanoChloride Msgao0431-49-31 05:18:00* Test Item Value Reference Range Interpretation Comments Chloride Level (test code = 2075-0) 99 98-107 [facility] PlanoCarbon Dioxide Gqfsu3024-27-99 05:18:00* Test Item Value Reference Range Interpretation Comments Carbon Dioxide Level (test code = 2028-9) 24 - [facility] PlanoAnion Hga3148-63-46 05:18:00* Test Item Value Reference Range Interpretation Comments Anion Gap (test code = 13721-7) 16.3 8-16 H [facility] PlanoBlood Urea Vrpgietv1070-16-04 05:18:00* Test Item Value Reference Range Interpretation Comments Blood Urea Nitrogen (test code = 3094-0) 12 11-10 [facility] PlanoCreatinine2018-12-26 05:18:00* Test Item Value Reference Range Interpretation Comments Creatinine (test code = 2160-0) 0.78 0.57-1.11 [facility] PlanoBUN/Creatinine Chnsi5692-73-01 05:18:00* Test Item Value Reference Range Interpretation Comments BUN/Creatinine Ratio (test code = 3097-3) 15 10-10 [facility] PlanoEstimat Glomerular Filtration Rate 2018-04-12 05:18:00* Test Item Value Reference Range Interpretation Comments Estimat Glomerular Filtration Rate (test code = 488265392) > 60 >60 Ranges were taken from the National Kidney Disease Education Program and the [facility] Kidney Foundation literature.Reference ranges:60 or greater: Aqvvyt10-05 ( for 3 consecutive months): Chronic kidney disease 15 or less: Kidney failureBaylor [facility] & [facility] – PlanoGlucose Sppiw2312-74-73 05:18:00* Test Item Value Reference Range Interpretation Comments Glucose Level (test code = KTM8147) 216 74-118 H [facility] PlanoCalcium Iqpcs8599-80-37 05:18:00* Test Item Value Reference Range Interpretation Comments Calcium Level (test code = 01666-0) 9.3 8.4-10.2 [facility] PlanoTotal Nlppaeall9807-59-15 05:18:00* Test Item Value Reference Range Interpretation Comments Total Bilirubin (test code = 1975-2) 0.4 0.2-1.2 [facility] PlanoAspartate Amino Transf (AST/SGOT) 2018-04-12 05:18:00* Test Item Value Reference Range Interpretation Comments Aspartate Amino Transf (AST/SGOT) (test code = Aspartate Amino Transf (AST/SGOT)) 24 5-34 [facility] PlanoAlanine Aminotransferase (ALT/SGPT) 2018-04-12 05:18:00* Test Item Value Reference Range Interpretation Comments Alanine Aminotransferase (ALT/SGPT) (test code = 1742-6) 114 0-55 [facility] Jcikmit0901-90-79 05:18:00* Test Item Value Reference Range Interpretation Comments Total Protein (test code = 2885-2) 6.8 6.5-8.1 [facility] PlanoAlbumin2018-12-26 05:18:00* Test Item Value Reference Range Interpretation Comments Albumin (test code = 1751-7) 2.9 3.5-5.0 L [facility] PlanoGlobulin2018-12-26 05:18:00* Test Item Value Reference Range Interpretation Comments Globulin (test code = 10848-9) 3.9 2.3-3.5 H [facility] PlanoAlbumin/Globulin Aacpb9168-27-27 05:18:00 * Test Item Value Reference Range Interpretation Comments Albumin/Globulin Ratio (test code = 1759-0) 0.7 0.8-2.0 L [facility] PlanoAlkaline Ecfhzrnpyqx6124-86-92 05:18:00* Test Item Value Reference Range Interpretation Comments Alkaline Phosphatase (test code = 6768-6) 98 40-150 [facility] PlanoTriglycerides Tfbqq7661-74-00 05:18:00* Test Item Value Reference Range Interpretation Comments Triglycerides Level (test code = 2571-8) 133 0-149 [facility] PlanoCholesterol Zmopb5995-09-99 05:18:00* Test Item Value Reference Range Interpretation Comments Cholesterol Level (test code = 2093-3) 220 0-199 H Less than 200 mg/dL Low Vzro687 - 239 mg/dL Borderline Vqud847 m g/dl and greater High Risk [facility] PlanoLDL Hkhwaprzkgc2233-35-62 05:18:00* Test Item Value Reference Range Interpretation Comments LDL Cholesterol (test code = 2089-1) 139 60-130 H [facility] Lmoprgxanwb9436-36-19 05:18:00* Test Item Value Reference Range Interpretation Comments HDL Cholesterol (test code = 2085-9) 54 40-60 [facility] PlanoCholesterol/HDL Lpclt8688-62-08 05:18:00 * Test Item Value Reference Range Interpretation Comments Cholesterol/HDL Ratio (test code = 9830-1) 4.1 3.0-3.6 H [facility] PlanoTriglycerides Dgaej6810-55-82 05:18:00* Test Item Value Reference Range Interpretation Comments Triglycerides Level (test code = 2571-8) 133 0-149 [facility] PlanoCholesterol Tcrjt4584-09-72 05:18:00* Test Item Value Reference Range Interpretation Comments Cholesterol Level (test code = 2093-3) 220 0-199 H Less than 200 mg/dL Low Dvll546 - 239 mg/dL Borderline Thtv711 m g/dl and greater High Risk [facility] Gtnkqntwgln2438-09-39 05:18:00* Test Item Value Reference Range Interpretation Comments LDL Cholesterol (test code = 2089-1) 139 60-130 H [facility] Rfwzywwdcry6634-14-71 05:18:00* Test Item Value Reference Range Interpretation Comments HDL Cholesterol (test code = 2085-9) 54 40-60 [facility] PlanoCholesterol/HDL Kzdoj2069-19-81 05:18:00 * Test Item Value Reference Range Interpretation Comments Cholesterol/HDL Ratio (test code = 9830-1) 4.1 3.0-3.6 H [facility] PlanoTriglycerides Wglky1702-81-17 05:18:00* Test Item Value Reference Range Interpretation Comments Triglycerides Level (test code = 2571-8) 133 0-149 [facility] PlanoCholesterol Ozkcn3722-38-19 05:18:00* Test Item Value Reference Range Interpretation Comments Cholesterol Level (test code = 2093-3) 220 0-199 H Less than 200 mg/dL Low Vjwi270 - 239 mg/dL Borderline Vxez483 m g/dl and greater High Risk [facility] PlanoLDL Hqabmcqsvpo8263-54-54 05:18:00* Test Item Value Reference Range Interpretation Comments LDL Cholesterol (test code = 2089-1) 139 60-130 H [facility] PlanoHDL Hdkyupxneph4638-47-40 05:18:00* Test Item Value Reference Range Interpretation Comments HDL Cholesterol (test code = 2085-9) 54 40-60 [facility] PlanoCholesterol/HDL Sycsq3260-45-82 05:18:00 * Test Item Value Reference Range Interpretation Comments Cholesterol/HDL Ratio (test code = 9830-1) 4.1 3.0-3.6 H [facility] PlanoWhite Blood Gudlv8716-64-03 04:52:00* Test Item Value Reference Range Interpretation Comments White Blood Count (test code = 6690-2) 12.93 4.8-10.8 H [facility] PlanoRed Blood Htexs9400-18-50 04:52:00* Test Item Value Reference Range Interpretation Comments Red Blood Count (test code = 789-8) 3.90 3.6-5.1 [facility] PlanoHemoglobin2018-12-26 04:52:00* Test Item Value Reference Range Interpretation Comments Hemoglobin (test code = 44554-8) 12.6 12.0-16.0 [facility] PlanoHematocrit2018-12-26 04:52:00* Test Item Value Reference Range Interpretation Comments Hematocrit (test code = 4544-3) 37.1 34.2-44.1 [facility] PlanoMean Corpuscular Zfdcrl1536-92-51 04:52:00* Test Item Value Reference Range Interpretation Comments Mean Corpuscular Volume (test code = 787-2) 95.1 81-99 [facility] PlanoMean Corpuscular Arkxsqfzbz2664-06-84 04:52:00* Test Item Value Reference Range Interpretation Comments Mean Corpuscular Hemoglobin (test code = 785-6) 32.3 28-32 H [facility] PlanoMean Corpuscular Hemoglobin Concent 2018-04-12 04:52:00* Test Item Value Reference Range Interpretation Comments Mean Corpuscular Hemoglobin Concent (test code = 786-4) 34.0 31-35 [facility] PlanoRed Cell Distribution Updkk2088-30-41 04:52:00* Test Item Value Reference Range Interpretation Comments Red Cell Distribution Width (test code = 94328-8) 14.2 11.7 -14.4 [facility] PlanoPlatelet Pitkj9087-53-98 04:52:00* Test Item Value Reference Range Interpretation Comments Platelet Count (test code = 777-3) 413 140-360 H [facility] PlanoNeutrophils (%) (Auto)2018-04-12 04:52:00 * Test Item Value Reference Range Interpretation Comments Neutrophils (%) (Auto) (test code = 62526-2) 88.2 38.7-80.0 H [facility] PlanoLymphocytes (%) (Auto)2018-04-12 04:52:00 * Test Item Value Reference Range Interpretation Comments Lymphocytes (%) (Auto) (test code = 736-9) 8.7 18.0-39.1 L [facility] PlanoMonocytes (%) (Auto)2018-04-12 04:52:00* Test Item Value Reference Range Interpretation Comments Monocytes (%) (Auto) (test code = 5905-5) 1.2 4.4-11.3 L [facility] PlanoEosinophils (%) (Auto)2018-04-12 04:52:00 * Test Item Value Reference Range Interpretation Comments Eosinophils (%) (Auto) (test code = 713-8) 0.0 0.0-6.0 [facility] PlanoBasophils (%) (Auto)2018-04-12 04:52:00* Test Item Value Reference Range Interpretation Comments Basophils (%) (Auto) (test code = 706-2) 0.2 0.0-1.0 [facility] PlanoIM GRANULOCYTES %2018-04-12 04:52:00* Test Item Value Reference Range Interpretation Comments IM GRANULOCYTES % (test code = IM GRANULOCYTES %) 1.7 0.0- 1.0 H [facility] PlanoNeutrophils # (Auto)2018-04-12 04:52:00* Test Item Value Reference Range Interpretation Comments Neutrophils # (Auto) (test code = 751-8) 11.4 2.1-6.9 H [facility] PlanoLymphocytes # (Auto)2018-04-12 04:52:00* Test Item Value Reference Range Interpretation Comments Lymphocytes # (Auto) (test code = 86544-5) 1.1 1.0-3.2 [facility] PlanoMonocytes # (Auto)2018-04-12 04:52:00* Test Item Value Reference Range Interpretation Comments Monocytes # (Auto) (test code = 742-7) 0.2 0.2-0.8 [facility] PlanoEosinophils # (Auto)2018-04-12 04:52:00* Test Item Value Reference Range Interpretation Comments Eosinophils # (Auto) (test code = 711-2) 0.0 0.0-0.4 [facility] PlanoBasophils # (Auto)2018-04-12 04:52:00* Test Item Value Reference Range Interpretation Comments Basophils # (Auto) (test code = 704-7) 0.0 0.0-0.1 [facility] PlanoAbsolute Immature Granulocyte (auto 2018-04-12 04:52:00* Test Item Value Reference Range Interpretation Comments Absolute Immature Granulocyte (auto (anita t code = Absolute Immature Granulocyte (auto) 0.22 0-0.1 H [facility] TexasCHEST XRAY LINE VVEKNNCNM0336-81-31 13:49:00 [facility] [address] [address] Patient Name: ROSA ISELA BENITEZ MR #: [id number] : 1970 Age/Sex: 48/F Req #: [id number] Adm Physician: PARMINDER NARVAEZ MD Ordered by: KATIE BOWEN MD Report #: [id number] [facility] Procedure: [id number] DX/CHEST XRAY LINE PLACEMENT Exam Date: 04/11/18 [...] COPY TO: KATIE BOWEN MD Hemoglobin A1c Utlrygu4661-13-32 07:34:00* Test Item Value Reference Range Interpretation Comments Hemoglobin A1c Percent (test code = Hemoglobin A1c Percent) 7.0 4.0-7.0 [facility] PlanoHemoglobin A1c Ojapvwk4092-31-27 07:34:00 * Test Item Value Reference Range Interpretation Comments Hemoglobin A1c Percent (test code = Hemoglobin A1c Percent) 7.0 4.0-7.0 [facility] PlanoHemoglobin A1c Kejogco2723-91-87 07:34:00 * Test Item Value Reference Range Interpretation Comments Hemoglobin A1c Percent (test code = Hemoglobin A1c Percent) 7.0 4.0-7.0 [facility] A IgM Ebrkjjhs6015-86-37 06:27:00* Test Item Value Reference Range Interpretation Comments Hepatitis A IgM Antibody (test code = 28193-4) Negative Negativ e [facility] B Surface Zlkiraq2270-44-43 06:27:00* Test Item Value Reference Range Interpretation Comments Hepatitis B Surface Antigen (test code = 5196-1) Negative Negat damien [facility] B Core IgM Actepelw9768-91-33 06:27:00* Test Item Value Reference Range Interpretation Comments Hepatitis B Core IgM Antibody (test code = 23162-0) Negative Ne gative [facility] C Novktbyd0001-13-38 06:27:00* Test Item Value Reference Range Interpretation Comments Hepatitis C Antibody (test code = 39281-4) 0.1 0.0-0.9 Negative: < 0.8 Indeterminate: 0.8 - 0.9 Positive: > 0.9 The CDC recommends that a positive HCV antibody result be followed up with a HCV Nucleic Acid Amplification test (191274).Performed at: [facility] [address] [place] [address] [id number] Director: Prasanna Mishra MD, Phone: [phone] [facility] A IgM Antibody 2018-04-11 06:27:00* Test Item Value Reference Range Interpretation Comments Hepatitis A IgM Antibody (test code = 75030-8) Negative Negativ e [facility] B Surface Hhpudqm3692-73-02 06:27:00* Test Item Value Reference Range Interpretation Comments Hepatitis B Surface Antigen (test code = 5196-1) Negative Negat damien [facility] B Core IgM Uvogyxxp2108-68-42 06:27:00* Test Item Value Reference Range Interpretation Comments Hepatitis B Core IgM Antibody (test code = 13104-4) Negative Ne [facility] C Ccebzvwq3713-56-23 06:27:00* Test Item Value Reference Range Interpretation Comments Hepatitis C Antibody (test code = 31012-3) 0.1 0.0-0.9 Negative: < 0.8 Indeterminate: 0.8 - 0.9 Positive: > 0.9 The CDC recommends that a positive HCV antibody result be followed up with a HCV Nucleic Acid Amplification test (334793).Performed at: [facility] [address] [place] [address] [id number] Director: Prasanna Mishra MD, Phone: [phone] [facility] A IgM Antibody 2018-04-11 06:27:00* Test Item Value Reference Range Interpretation Comments Hepatitis A IgM Antibody (test code = 58689-2) Negative Negativ e [facility] B Surface Ohqunax6238-86-72 06:27:00* Test Item Value Reference Range Interpretation Comments Hepatitis B Surface Antigen (test code = 5196-1) Negative Negat damien [facility] B Core IgM Fngpktim9330-78-88 06:27:00* Test Item Value Reference Range Interpretation Comments Hepatitis B Core IgM Antibody (test code = 89755-1) Negative [facility] Unwzudkx5366-39-69 06:27:00* Test Item Value Reference Range Interpretation Comments Hepatitis C Antibody (test code = 10541-1) 0.1 0.0-0.9 Negative: < 0.8 Indeterminate: 0.8 - 0.9 Positive: > 0.9 The CDC recommends that a positive HCV antibody result be followed up with a HCV Nucleic Acid Amplification test (761509).Performed at: [facility] [address] [place], [place] [id number] Director: Prasanna Mishra MD, Phone: [phone] [facility] TexasUS VMJQA0467-29-58 13:19:00 [facility] [address] [place] [address] Patient Name: ROSA ISELA BENITEZ MR #: [id number] : Age/Sex: 48/F Req #: [id number] Adm Physician: PARMINDER NARVAEZ MD Ordered by: IDA BHANDARI MD Report #: [id number] Location: MED/SURG2 Room/Bed: [facility] Procedure: US/US LIVER Exam Date: [...] on 04/10/18 132 2 COPY TO: IDA BHANDARI MD Urine MDG1887-23-75 19:14:00* Test Item Value Reference Range Interpretation Comments Urine WBC (test code = 5821-4) 0-5 0-5 [facility]anoUrine WBL2582-88-08 19:14:00* Test Item Value Reference Range Interpretation Comments Urine RBC (test code = 60464-8) 0-5 0-5 [facility] PlanoUrine Abevfosk6801-19-38 19:14:00* Test Item Value Reference Range Interpretation Comments Urine Bacteria (test code = 12344-3) NONE NONE [facility]anoUrine Epithelial Hucel1691-77-16 19:14:00 * Test Item Value Reference Range Interpretation Comments Urine Epithelial Cells (test code = 95729-8) MODERATE NONE [facility] PlanoUrine NLC6377-28-86 19:14:00* Test Item Value Reference Range Interpretation Comments Urine WBC (test code = 5821-4) 0-5 0-5 [facility]anoUrine FGZ0005-65-33 19:14:00* Test Item Value Reference Range Interpretation Comments Urine RBC (test code = 79767-2) 0-5 0-5 [facility]anoUrine Lvjxzgzf4796-48-57 19:14:00* Test Item Value Reference Range Interpretation Comments Urine Bacteria (test code = 78125-0) NONE NONE [facility]anoUrine Epithelial Wxypp9603-59-28 19:14:00 * Test Item Value Reference Range Interpretation Comments Urine Epithelial Cells (test code = 76210-5) MODERATE NONE [facility]anoUrine Zjnlr2613-98-47 19:04:00* Test Item Value Reference Range Interpretation Comments Urine Color (test code = 5778-6) YELLOW YELLOW [facility]anoUrine Xvtahsc8665-33-60 19:04:00* Test Item Value Reference Range Interpretation Comments Urine Clarity (test code = 29260-0) CLEAR CLEAR [facility] Specific Qtzwwzf2693-87-63 19:04:00 * Test Item Value Reference Range Interpretation Comments Urine Specific [place] (test code = 5811-5) 1.010 1.010-1.02 5 [facility]anoUrine rB7438-66-51 19:04:00* Test Item Value Reference Range Interpretation Comments Urine pH (test code = 04020-9) 6.5 5-7 [facility] Leukocyte Tpqdlfyp2281-49-23 19:04:00* Test Item Value Reference Range Interpretation Comments Urine Leukocyte Esterase (test code = 5799-2) NEGATIVE NEGATIVE [facility] Ssiwiio5134-16-23 19:04:00* Test Item Value Reference Range Interpretation Comments Urine Nitrite (test code = 93732-8) NEGATIVE NEGATIVE [facility] Wjkmsvn6498-07-38 19:04:00* Test Item Value Reference Range Interpretation Comments Urine Protein (test code = 5804-0) NEGATIVE NEGATIVE [facility] Glucose (UA)2018-04-09 19:04:00* Test Item Value Reference Range Interpretation Comments Urine Glucose (UA) (test code = 2349-9) NEGATIVE NEGATIVE [facility]anoUrine Fucequu7674-82-99 19:04:00* Test Item Value Reference Range Interpretation Comments Urine Ketones (test code = 39608-1) NEGATIVE NEGATIVE [facility] Ayckvcxvzmni9006-47-77 19:04:00* Test Item Value Reference Range Interpretation Comments Urine Urobilinogen (test code = 41935-5) 0.2 0.2-1 [facility]anoUrine Wmvptlnfe9761-60-90 19:04:00* Test Item Value Reference Range Interpretation Comments Urine Bilirubin (test code = 1978-6) NEGATIVE NEGATIVE [facility]anoUrine Belba9731-57-25 19:04:00* Test Item Value Reference Range Interpretation Comments Urine Blood (test code = 47086-7) NEGATIVE NEGATIVE [facility]anoUrine Uopei2865-96-17 19:04:00* Test Item Value Reference Range Interpretation Comments Urine Color (test code = 5778-6) YELLOW YELLOW [facility]anoUrine Grzsucx3351-26-22 19:04:00* Test Item Value Reference Range Interpretation Comments Urine Clarity (test code = 19626-2) CLEAR CLEAR [facility]anoUrine Specific Hrpjrdw3904-46-95 19:04:00 * Test Item Value Reference Range Interpretation Comments Urine Specific [place] (test code = 5811-5) 1.010 1.010-1.02 5 [facility]anoUrine eL9759-96-93 19:04:00* Test Item Value Reference Range Interpretation Comments Urine pH (test code = 78587-9) 6.5 5-7 [facility] Leukocyte Txxsqbni1041-28-03 19:04:00* Test Item Value Reference Range Interpretation Comments Urine Leukocyte Esterase (test code = 5799-2) NEGATIVE NEGATIVE [facility]anoU[facility] Tuncpam4137-44-09 19:04:00* Test Item Value Reference Range Interpretation Comments Urine Nitrite (test code = 79691-5) NEGATIVE NEGATIVE [facility]anoU[facility] Fbhowzw5939-81-94 19:04:00* Test Item Value Reference Range Interpretation Comments Urine Protein (test code = 5804-0) NEGATIVE NEGATIVE [facility]anoUrine Glucose (UA)2018-04-09 19:04:00* Test Item Value Reference Range Interpretation Comments Urine Glucose (UA) (test code = 2349-9) NEGATIVE NEGATIVE [facility]anoUrine Vvfnwat1898-79-19 19:04:00* Test Item Value Reference Range Interpretation Comments Urine Ketones (test code = 05571-8) NEGATIVE NEGATIVE [facility]anoUrine Zotmpgayuyme8312-82-02 19:04:00* Test Item Value Reference Range Interpretation Comments Urine Urobilinogen (test code = 30941-9) 0.2 0.2-1 [facility]anoUrine Jhyibtscy3180-70-02 19:04:00* Test Item Value Reference Range Interpretation Comments Urine Bilirubin (test code = 1978-6) NEGATIVE NEGATIVE [facility]anoUrine Ealgg3675-21-98 19:04:00* Test Item Value Reference Range Interpretation Comments Urine Blood (test code = 13305-0) NEGATIVE NEGATIVE [facility] PlanoLactic Acid Envcq4507-46-50 16:51:00* Test Item Value Reference Range Interpretation Comments Lactic Acid Level (test code = Lactic Acid Level) 12.6 4.5- 19.8 [facility] PlanoCreatine Kinase PS5527-87-46 16:32:00* Test Item Value Reference Range Interpretation Comments Creatine Kinase MB (test code = 08717-4) 1.70 0-5.0 [facility] PlanoTroponin H7111-72-06 16:32:00* Test Item Value Reference Range Interpretation Comments Troponin I (test code = FTE8527) 0.197 0-0.300 [facility] PlanoCreatine Kinase FI8211-66-45 16:32:00* Test Item Value Reference Range Interpretation Comments Creatine Kinase MB (test code = 63886-7) 1.70 0-5.0 [facility] PlanoTropon L3374-99-43 16:32:00* Test Item Value Reference Range Interpretation Comments Troponin I (test code = VRP7706) 0.197 0-0.300 [facility]anoCreatine Lvtoaa4099-47-78 16:25:00* Test Item Value Reference Range Interpretation Comments Creatine Kinase (test code = 2157-6) 32 29-168 [facility] PlanoLipase2018-12-23 16:25:00* Test Item Value Reference Range Interpretation Comments Lipase (test code = 3040-3) 9 8-78 [facility]anoCreatine Gmzsvu4608-24-63 16:25:00* Test Item Value Reference Range Interpretation Comments Creatine Kinase (test code = 2157-6) 32 29-168 [facility] PlanoLipase2018-12-23 16:25:00* Test Item Value Reference Range Interpretation Comments Lipase (test code = 3040-3) [facility]anoLipase2018-12-23 16:25:00* Test Item Value Reference Range Interpretation Comments Lipase (test code = 3040-3) [facility] PlanoActivated Partial Thromboplast Time 2018-04-09 16:14:00* Test Item Value Reference Range Interpretation Comments Activated Partial Thromboplast Time (test code = 62324-9) 29.1 23.8-35.5 [facility] PlanoActivated Partial Thromboplast Time 2018-04-09 16:14:00* Test Item Value Reference Range Interpretation Comments Activated Partial Thromboplast Time (test code = 73945-2) 29.1 23.8-35.5 [facility]anoActivated Partial Thromboplast Time 2018-04-09 16:14:00* Test Item Value Reference Range Interpretation Comments Activated Partial Thromboplast Time (test code = 85963-2) 29.1 23.8-35.5 [facility] PlanoProthrombin Pmoh9724-74-64 16:13:00* Test Item Value Reference Range Interpretation Comments Prothrombin Time (test code = 5902-2) 12.5 11.9-14.5 [facility] PlanoProthromb Time International Ratio 2018-04-09 16:13:00* Test Item Value Reference Range Interpretation Comments Prothromb Time International Ratio (test code = 6301-6) 0.86 Oral Anticoagulant Therapy INR Values:1. Low Intensity Therapy 1.5 - 2.02 . Moderate Intensity Therapy 2.0 - 3.03. High Intensity Therapy(1) 2.5 - 3. 54. High Intensity Therapy(2) 3.0 - 4.05. Panic Value INR > 5.0 [facility] PlanoProthrombin Qczy0015-02-83 16:13:00* Test Item Value Reference Range Interpretation Comments Prothrombin Time (test code = 5902-2) 12.5 11.9-14.5 [facility] PlanoProthromb Time International Ratio 2018-04-09 16:13:00* Test Item Value Reference Range Interpretation Comments Prothromb Time International Ratio (test code = 6301-6) 0.86 Oral Anticoagulant Therapy INR Values:1. Low Intensity Therapy 1.5 - 2.02 . Moderate Intensity Therapy 2.0 - 3.03. High Intensity Therapy(1) 2.5 - 3. 54. High Intensity Therapy(2) 3.0 - 4.05. Panic Value INR > 5.0 [facility] PlanoProthrombin Azxj5136-35-15 16:13:00* Test Item Value Reference Range Interpretation Comments Prothrombin Time (test code = 5902-2) 12.5 11.9-14.5 [facility] PlanoProthromb Time International Ratio 2018-04-09 16:13:00* Test Item Value Reference Range Interpretation Comments Prothromb Time International Ratio (test code = 6301-6) 0.86 Oral Anticoagulant Therapy INR Values:1. Low Intensity Therapy 1.5 - 2.02 . Moderate Intensity Therapy 2.0 - 3.03. High Intensity Therapy(1) 2.5 - 3. 54. High Intensity Therapy(2) 3.0 - 4.05. Panic Value INR > 5.0 [facility] PlanoBlood Fjgedus2508-50-98 04:17:00* Test Item Value Reference Range Interpretation Comments Blood Culture (test code = 96236754) NO GROWTH AFTER 5 DAYS, FINAL REPORT [facility] PlanoBedside Gnizbiv1716-30-87 20:11:00* Test Item Value Reference Range Interpretation Comments Bedside Glucose (test code = 77037-3) 135 70-120 H Meter ID: [id number]. David's Georgetown HospitalDifferential Total Cells Ullfmmn5994-36-82 08:02:00* Test Item Value Reference Range Interpretation Comments Differential Total Cells Counted (test code = Differgeoff tial Total Cells Counted) 100 [facility] PlanoNeutrophils % (Manual)2017-10-10 08:02:00 * Test Item Value Reference Range Interpretation Comments Neutrophils % (Manual) (test code = 01531-4) 52 40-74 [facility] PlanoLymphocytes % (Manual)2017-10-10 08:02:00 * Test Item Value Reference Range Interpretation Comments Lymphocytes % (Manual) (test code = 737-7) 29 19-48 [facility] PlanoMonocytes % (Manual)2017-10-10 08:02:00* Test Item Value Reference Range Interpretation Comments Monocytes % (Manual) (test code = 744-3) 9 3.4-9.0 [facility]anoEosinophils % (Manual)2017-10-10 08:02:00 * Test Item Value Reference Range Interpretation Comments Eosinophils % (Manual) (test code = 714-6) 2 0-7 [facility] PlanoMetamyelocytes %2017-10-10 08:02:00* Test Item Value Reference Range Interpretation Comments Metamyelocytes % (test code = 740-1) 3 0-0 H [facility] PlanoMyelocytes %2017-10-10 08:02:00* Test Item Value Reference Range Interpretation Comments Myelocytes % (test code = 749-2) 5 0-0 H [facility] PlanoPlatelet Wnemncmv4182-94-77 08:02:00* Test Item Value Reference Range Interpretation Comments Platelet Estimate (test code = 00367-7) ADEQUATE [facility] PlanoPlatelet Morphology Xorrmyn7639-29-71 08:02:00* Test Item Value Reference Range Interpretation Comments Platelet Morphology Comment (test code = 69793-3) NORMAL [facility] PlanoRed Cell Morphology Hpqysit7863-61-66 08:02:00* Test Item Value Reference Range Interpretation Comments Red Cell Morphology Comment (test code = 6742-1) NORMAL [facility] PlanoDifferential Total Cells Counted 2017-10-10 08:02:00* Test Item Value Reference Range Interpretation Comments Differential Total Cells Counted (test code = Differgeoff tial Total Cells Counted) 100 [facility] PlanoNeutrophils % (Manual)2017-10-10 08:02:00 * Test Item Value Reference Range Interpretation Comments Neutrophils % (Manual) (test code = 41918-1) 52 40-74 [facility] PlanoLymphocytes % (Manual)2017-10-10 08:02:00 * Test Item Value Reference Range Interpretation Comments Lymphocytes % (Manual) (test code = 737-7) 29 19-48 [facility]anoMonocytes % (Manual)2017-10-10 08:02:00* Test Item Value Reference Range Interpretation Comments Monocytes % (Manual) (test code = 744-3) 9 3.4-9.0 [facility]anoEosinophils % (Manual)2017-10-10 08:02:00 * Test Item Value Reference Range Interpretation Comments Eosinophils % (Manual) (test code = 714-6) 2 0-7 [facility] PlanoMetamyelocytes %2017-10-10 08:02:00* Test Item Value Reference Range Interpretation Comments Metamyelocytes % (test code = 740-1) 3 0-0 H [facility] PlanoMyelocytes %2017-10-10 08:02:00* Test Item Value Reference Range Interpretation Comments Myelocytes % (test code = 749-2) 5 0-0 H [facility] PlanoPlatelet Mhuiwswy4519-91-36 08:02:00* Test Item Value Reference Range Interpretation Comments Platelet Estimate (test code = 31668-6) ADEQUATE [facility] PlanoPlatelet Morphology Fpeawut6767-29-86 08:02:00* Test Item Value Reference Range Interpretation Comments Platelet Morphology Comment (test code = 73575-2) NORMAL [facility] PlanoRed Cell Morphology Rlzvbpt7589-40-13 08:02:00* Test Item Value Reference Range Interpretation Comments Red Cell Morphology Comment (test code = 6742-1) NORMAL [facility] PlanoWhite Blood Uezho5525-98-59 07:05:00* Test Item Value Reference Range Interpretation Comments White Blood Count (test code = 6690-2) 13.59 4.8-10.8 H [facility] PlanoRed Blood Gwakx9090-97-47 07:05:00* Test Item Value Reference Range Interpretation Comments Red Blood Count (test code = 789-8) 3.76 3.6-5.1 [facility] PlanoHemoglobin2018-06-25 07:05:00* Test Item Value Reference Range Interpretation Comments Hemoglobin (test code = 27090-9) 12.5 12.0-16.0 [facility] PlanoHematocrit2018-06-25 07:05:00* Test Item Value Reference Range Interpretation Comments Hematocrit (test code = 4544-3) 36.4 34.2-44.1 [facility] PlanoMean Corpuscular Gvaceb7041-74-68 07:05:00* Test Item Value Reference Range Interpretation Comments Mean Corpuscular Volume (test code = 787-2) 96.8 81-99 [facility] PlanoMean Corpuscular Abwyqyttyc6269-78-95 07:05:00* Test Item Value Reference Range Interpretation Comments Mean Corpuscular Hemoglobin (test code = 785-6) 33.2 28-32 H [facility] PlanoMean Corpuscular Hemoglobin Concent 2017-10-10 07:05:00* Test Item Value Reference Range Interpretation Comments Mean Corpuscular Hemoglobin Concent (test code = 786-4) 34.3 31-35 [facility] PlanoRed Cell Distribution Hapvf4349-24-92 07:05:00* Test Item Value Reference Range Interpretation Comments Red Cell Distribution Width (test code = 32244-0) 14.9 11.7 -14.4 H [facility] PlanoPlatelet Utbau2983-40-92 07:05:00* Test Item Value Reference Range Interpretation Comments Platelet Count (test code = 777-3) 371 140-360 H [facility] PlanoNeutrophils (%) (Auto)2017-10-10 07:05:00 * Test Item Value Reference Range Interpretation Comments Neutrophils (%) (Auto) (test code = 43336-7) 59.8 38.7-80.0 [facility] PlanoLymphocytes (%) (Auto)2017-10-10 07:05:00 * Test Item Value Reference Range Interpretation Comments Lymphocytes (%) (Auto) (test code = 736-9) 25.1 18.0-39.1 [facility] PlanoMonocytes (%) (Auto)2017-10-10 07:05:00* Test Item Value Reference Range Interpretation Comments Monocytes (%) (Auto) (test code = 5905-5) 7.7 4.4-11.3 [facility]anoEosinophils (%) (Auto)2017-10-10 07:05:00 * Test Item Value Reference Range Interpretation Comments Eosinophils (%) (Auto) (test code = 713-8) 0.7 0.0-6.0 [facility] PlanoBasophils (%) (Auto)2017-10-10 07:05:00* Test Item Value Reference Range Interpretation Comments Basophils (%) (Auto) (test code = 706-2) 0.9 0.0-1.0 [facility] PlanoIM GRANULOCYTES %2017-10-10 07:05:00* Test Item Value Reference Range Interpretation Comments IM GRANULOCYTES % (test code = IM GRANULOCYTES %) 5.8 0.0- 1.0 H [facility] PlanoNeutrophils # (Auto)2017-10-10 07:05:00* Test Item Value Reference Range Interpretation Comments Neutrophils # (Auto) (test code = 751-8) 8.1 2.1-6.9 H [facility] PlanoLymphocytes # (Auto)2017-10-10 07:05:00* Test Item Value Reference Range Interpretation Comments Lymphocytes # (Auto) (test code = 50320-6) 3.4 1.0-3.2 H [facility] PlanoMonocytes # (Auto)2017-10-10 07:05:00* Test Item Value Reference Range Interpretation Comments Monocytes # (Auto) (test code = 742-7) 1.1 0.2-0.8 H [facility]anoEosinophils # (Auto)2017-10-10 07:05:00* Test Item Value Reference Range Interpretation Comments Eosinophils # (Auto) (test code = 711-2) 0.1 0.0-0.4 [facility] PlanoBasophils # (Auto)2017-10-10 07:05:00* Test Item Value Reference Range Interpretation Comments Basophils # (Auto) (test code = 704-7) 0.1 0.0-0.1 [facility] PlanoAbsolute Immature Granulocyte (auto 2017-10-10 07:05:00* Test Item Value Reference Range Interpretation Comments Absolute Immature Granulocyte (auto (anita t code = Absolute Immature Granulocyte (auto) 0.79 0-0.1 [facility]odium Fjzqj6997-86-26 08:10:00* Test Item Value Reference Range Interpretation Comments Sodium Level (test code = 2951-2) 139 136-145 [facility] PlanoPotassium Ndqlh3374-00-51 08:10:00* Test Item Value Reference Range Interpretation Comments Potassium Level (test code = 2823-3) 3.8 3.5-5.1 [facility] PlanoChloride Arlxx2134-27-94 08:10:00* Test Item Value Reference Range Interpretation Comments Chloride Level (test code = 2075-0) 104 98-107 [facility] PlanoCarbon Dioxide Gsajp7490-28-90 08:10:00* Test Item Value Reference Range Interpretation Comments Carbon Dioxide Level (test code = 2028-9) 24 22- [facility] PlanoAnion Evx3644-66-36 08:10:00* Test Item Value Reference Range Interpretation Comments Anion Gap (test code = 60315-7) 14.8 8-16 [facility] PlanoBlood Urea Gickupuf0793-19-69 08:10:00* Test Item Value Reference Range Interpretation Comments Blood Urea Nitrogen (test code = 3094-0) 18 7-26 [facility] PlanoCreatinine2018-06-24 08:10:00* Test Item Value Reference Range Interpretation Comments Creatinine (test code = 2160-0) 0.78 0.57-1.11 [facility] PlanoBUN/Creatinine Jebgq7796-00-46 08:10:00* Test Item Value Reference Range Interpretation Comments BUN/Creatinine Ratio (test code = 3097-3) 23 6-25 [facility] PlanoEstimat Glomerular Filtration Rate 2017-10-09 08:10:00* Test Item Value Reference Range Interpretation Comments Estimat Glomerular Filtration Rate (test code = 01451-0) 60- >60 Ranges were taken from the National Kidney Disease Education Program and the [facility] Kidney Foundation literature.Reference ranges:60 or greater: Kunuut57-60 ( for 3 consecutive months): Chronic kidney disease 15 or less: Kidney failureBaylor Scott & [facility] Center – PlanoGlucose Mpmis8750-68-87 08:10:00* Test Item Value Reference Range Interpretation Comments Glucose Level (test code = AGG4861) 125 74-118 H [facility] PlanoCalcium Zxuga9703-71-28 08:10:00* Test Item Value Reference Range Interpretation Comments Calcium Level (test code = 50106-7) 9.2 8.4-10.2 [facility] PlanoTotal Bxpszahrf3366-21-01 08:10:00* Test Item Value Reference Range Interpretation Comments Total Bilirubin (test code = 1975-2) 0.3 0.2-1.2 [facility] PlanoAspartate Amino Transf (AST/SGOT) 2017-10-09 08:10:00* Test Item Value Reference Range Interpretation Comments Aspartate Amino Transf (AST/SGOT) (test code = Aspartate Amino Transf (AST/SGOT)) 22 5-34 [facility] PlanoAlanine Aminotransferase (ALT/SGPT) 2017-10-09 08:10:00* Test Item Value Reference Range Interpretation Comments Alanine Aminotransferase (ALT/SGPT) (test code = 1742-6) 43 0-55 [facility] PlanoTotal Lhzaikm1943-37-11 08:10:00* Test Item Value Reference Range Interpretation Comments Total Protein (test code = 2885-2) 6.6 6.5-8.1 [facility] PlanoAlbumin2018-06-24 08:10:00* Test Item Value Reference Range Interpretation Comments Albumin (test code = 1751-7) 3.1 3.5-5.0 L [facility] PlanoGlobulin2018-06-24 08:10:00* Test Item Value Reference Range Interpretation Comments Globulin (test code = 66343-1) 3.5 2.3-3.5 [facility] PlanoAlbumin/Globulin Znurc1693-78-92 08:10:00 * Test Item Value Reference Range Interpretation Comments Albumin/Globulin Ratio (test code = 1759-0) 0.9 0.8-2.0 [facility] PlanoAlkaline Ywbxejnyuyf8929-65-85 08:10:00* Test Item Value Reference Range Interpretation Comments Alkaline Phosphatase (test code = 6768-6) 76 40-150 [facility] PlanoTriglycerides Uvxdp1614-14-59 08:10:00* Test Item Value Reference Range Interpretation Comments Triglycerides Level (test code = 2571-8) 677 0-149 H [facility] PlanoCholesterol Gowpe8130-31-03 08:10:00* Test Item Value Reference Range Interpretation Comments Cholesterol Level (test code = 2093-3) 267 0-199 H Less than 200 mg/dL Low Smqm845 - 239 mg/dL Borderline Cnxx071 m g/dl and greater High Risk [facility] PlanoHDL Briscwtndif2438-84-94 08:10:00* Test Item Value Reference Range Interpretation Comments HDL Cholesterol (test code = 2085-9) 50 40-60 [facility] PlanoCholesterol/HDL Mkzwc6265-23-52 08:10:00 * Test Item Value Reference Range Interpretation Comments Cholesterol/HDL Ratio (test code = 9830-1) 5.3 3.0-3.6 H [facility] PlanoCreatine Kinase NZ0571-05-60 19:38:00* Test Item Value Reference Range Interpretation Comments Creatine Kinase MB (test code = 77682-9) 2.40 0-5.0 [facility] PlanoTroponin P4366-12-19 19:38:00* Test Item Value Reference Range Interpretation Comments Troponin I (test code = SWO3388) -0.001 0-0.300 [facility] PlanoCreatine Wmkoxd3831-44-46 19:28:00* Test Item Value Reference Range Interpretation Comments Creatine Kinase (test code = 2157-6) 84 29-168 [facility] PlanoUrine Leukocyte Mlkggefs3647-86-90 14:17:00* Test Item Value Reference Range Interpretation Comments Urine Leukocyte Esterase (test code = 5799-2) 1+ NEGATIVE H --- 10/08/17 1416 ---LEUKO ESTERASE previously reported as: NEGATIVE [facility] PlanoUrine MEF8237-18-78 14:13:00* Test Item Value Reference Range Interpretation Comments Urine WBC (test code = 5821-4) 6-10 0-5 H [facility] PlanoUrine BWS4991-60-68 14:13:00* Test Item Value Reference Range Interpretation Comments Urine RBC (test code = 86418-2) 0-5 0-5 [facility] PlanoUrine Ygumbvuh3973-33-13 14:13:00* Test Item Value Reference Range Interpretation Comments Urine Bacteria (test code = 88076-0) FEW NONE [facility] PlanoUrine Epithelial Kjicq5014-32-49 14:13:00 * Test Item Value Reference Range Interpretation Comments Urine Epithelial Cells (test code = 60216-7) FEW NONE [facility] PlanoUrine Hjrom5302-07-03 14:09:00* Test Item Value Reference Range Interpretation Comments Urine Color (test code = 5778-6) YELLOW YELLOW [facility] PlanoUrine Zukrysu9370-41-37 14:09:00* Test Item Value Reference Range Interpretation Comments Urine Clarity (test code = 28352-8) CLEAR CLEAR [facility] PlanoUrine Specific Vdgidjb3525-84-19 14:09:00 * Test Item Value Reference Range Interpretation Comments Urine Specific [place] (test code = 5811-5) 1.020 1.010-1.02 5 [facility] PlanoUrine sC2724-48-50 14:09:00* Test Item Value Reference Range Interpretation Comments Urine pH (test code = 76698-2) 6 5-7 [facility] PlanoUrine Auovdxm7390-15-08 14:09:00* Test Item Value Reference Range Interpretation Comments Urine Nitrite (test code = 85271-7) NEGATIVE NEGATIVE [facility] PlanoUrine Ggmllry9624-95-02 14:09:00* Test Item Value Reference Range Interpretation Comments Urine Protein (test code = 5804-0) NEGATIVE NEGATIVE [facility] PlanoUrine Glucose (UA)2017-10-08 14:09:00* Test Item Value Reference Range Interpretation Comments Urine Glucose (UA) (test code = 2349-9) NEGATIVE NEGATIVE [facility] PlanoUrine Bkhlneg5439-65-13 14:09:00* Test Item Value Reference Range Interpretation Comments Urine Ketones (test code = 32520-1) NEGATIVE NEGATIVE [facility] PlanoUrine Svpiigjnvxww6065-67-66 14:09:00* Test Item Value Reference Range Interpretation Comments Urine Urobilinogen (test code = 60010-0) 0.2 0.2-1 [facility] PlanoUrine Hhkpelfzg3612-36-10 14:09:00* Test Item Value Reference Range Interpretation Comments Urine Bilirubin (test code = 1978-6) NEGATIVE NEGATIVE [facility] PlanoUrine Pkzir5865-78-77 14:09:00* Test Item Value Reference Range Interpretation Comments Urine Blood (test code = 25912-5) NEGATIVE NEGATIVE [facility] PlanoUrine Owvr0837-70-20 14:09:00* Test Item Value Reference Range Interpretation Comments Urine Test (test code = 2106-3) NEGATIVE NEGATIVE [facility] PlanoUrine Hcou2530-20-67 14:09:00* Test Item Value Reference Range Interpretation Comments Urine Test (test code = 2106-3) NEGATIVE NEGATIVE [facility] PlanoHemoglobin A1c Xmqzvab7259-29-41 08:53:00 * Test Item Value Reference Range Interpretation Comments Hemoglobin A1c Percent (test code = Hemoglobin A1c Percent) 7.0 4.0-7.0 [facility] PlanoThyroid Stimulating Hormone (TSH) 2017-10-08 04:23:00* Test Item Value Reference Range Interpretation Comments Thyroid Stimulating Hormone (TSH) (test code = 55221-8) 1.862 0.350-4.940 [facility] PlanoThyroid Stimulating Hormone (TSH) 2017-10-08 04:23:00* Test Item Value Reference Range Interpretation Comments Thyroid Stimulating Hormone (TSH) (test code = 77997-3) 1.862 0.350-4.940 [facility] PlanoCHEST SINGLE (PORTABLE)2017-10-08 04:20:00 [place] [id number] [place] [address] Patient Name: ROSA ISELA BENITEZ MR #: [id number] : 1970 Age/Sex: 47/F Req #: [id number] Adm Physician: Ordered by: ALAN NAJERA MD Report #: [id number] Location: ER Room/Bed: Procedure: [id number] DX/CHEST SINGLE (PORTABLE ) Exam Date: 10/08/17 [...] COPY TO: ALAN NAJERA MD LOWER LEG NJBKU0910-22-36 04:18:00 [place] [address] Patient Name: ROSA ISELA BENITEZ MR #: [id number] : 1970 Age/Sex: 47/F Req #: [id number] Adm Physician: Ordered by: ALAN NAJERA MD Report #: [id number] Location: Room/Bed: Procedure: [id number] DX/LOWER LEG RIGHT Exam Date: 10/08/17 Exam [...] COPY TO: ALAN NAJERA MD B-Type Natriuretic Nvtziqc0634-65-75 04:06:00* Test Item Value Reference Range Interpretation Comments B-Type Natriuretic Peptide (test code = 37574-1) 17.1 0-100 [facility] PlanoB-Type Natriuretic Bwcstqo8236-39-78 04:06:00* Test Item Value Reference Range Interpretation Comments B-Type Natriuretic Peptide (test code = 12678-5) 17.1 0-100 [facility] PlanoProthrombin Vmml6465-33-67 03:58:00* Test Item Value Reference Range Interpretation Comments Prothrombin Time (test code = 5902-2) 12.0 11.9-14.5 [facility] PlanoProthromb Time International Ratio 2017-10-08 03:58:00* Test Item Value Reference Range Interpretation Comments Prothromb Time International Ratio (test code = 6301-6) 0.96 Oral Anticoagulant Therapy INR Values:1. Low Intensity Therapy 1.5 - 2.02 . Moderate Intensity Therapy 2.0 - 3.03. High Intensity Therapy(1) 2.5 - 3. 54. High Intensity Therapy(2) 3.0 - 4.05. Panic Value INR > 5.0 [facility] PlanoActivated Partial Thromboplast Time 2017-10-08 03:58:00* Test Item Value Reference Range Interpretation Comments Activated Partial Thromboplast Time (test code = 17884-6) 25.0 23.8-35.5 [facility] PlanoD-Dimer Quantitative (PE/DVT)2017-10-08 03:58:00* Test Item Value Reference Range Interpretation Comments D-Dimer Quantitative (PE/DVT) (test code = 59962-7) 0.86 0. 00-0.45 H As with all in vitro diagnostic tests, the test results should be interpreted by the physician in conjunction with clinical findings and other test results.Test results are reported in NEW D-dimer units(ug/mLFEU).[facility] PlanoMagnesium Mgfsk0208-32-36 03:58:00* Test Item Value Reference Range Interpretation Comments Magnesium Level (test code = 52158-1) 1.9 1.3-2.1 [facility] PlanoD-Dimer Quantitative (PE/DVT)2017-10-08 03:58:00* Test Item Value Reference Range Interpretation Comments D-Dimer Quantitative (PE/DVT) (test code = 82254-3) 0.86 0. 00-0.45 H As with all in vitro diagnostic tests, the test results should be interpreted by the physician in conjunction with clinical findings and other test results.Test results are reported in NEW D-dimer units(ug/mLFEU).[facility] [id number] 03:58:00* Test Item Value Reference Range Interpretation Comments Magnesium Level (test code = 34203-9) 1.9 1.3-2.1 [facility]
== END 2019-10-08 10:55 | disposition home or self-care (01) | DRG 872 ==
LOC: ER 05:18 → ERHOLD 06:48 → MED/SURG2 23:19
PROVIDERS: ADMIT Internal Medicine; ATTEND Internal Medicine
PROC: 02HV33Z Insertion of Infusion Device into Superior Vena Cava, Percutaneous Approach (ICD-10-PCS; principal; 2019-10-05)
DX: A41.9 Sepsis, unspecified organism (principal); L03.116 Cellulitis of left lower limb; L03.115 Cellulitis of right lower limb; M32.9 Systemic lupus erythematosus, unspecified; E11.22 Type 2 diabetes mellitus with diabetic chronic kidney disease; I12.9 Hypertensive chronic kidney disease with stage 1 through stage 4 chronic kidney disease, or unspecified chronic kidney disease; N18.3 Chronic kidney disease, stage 3 (moderate); D72.829 Elevated white blood cell count, unspecified; I89.0 Lymphedema, not elsewhere classified
CPT/HCPCS: 36415; 36569; 70450; 71045; 80048; 80053; 81001; 82948; 85025; 87040; 96372; 99251; 99284; J1170; J1200; J1817; J1885; J1956; J2405; J7050; U0002

== ENCOUNTER 2020-01-04 02:19 | Inpatient (IN) | payer OTHER ==
[~2020-01-04] VITALS: Ht 162.6 cm; Wt 78.9 kg
[2020-01-04] VITALS (9 sets, daily range): BP systolic 116–161; BP diastolic 72–96
--- NOTE | 2020-01-04 02:39 | Emergency Department Note ---
History of Present Illnes History of Present Illness Chief Complaint: Extremity Trauma/Pain History of Present Illness This is a 49 year old female bilateral lower leg swelling that started yesterday. Patient states she often gets swelling and cellulitis to bilateral legs. Patient has redness and pitting edema. PT HAS HAD CELLULITIS IN BOTH LEGS NUMEROUS TIMES AND THAT IS WHY SHE IS HERE TONIGHT Historian: Patient Arrival Mode: Car Onset (how long ago): day(s) (1) Location: BILATERAL LOWER EXTREMITIES Quality: SWELLLING, REDNESS Radiation: Reports non-radiation Severity: moderate Onset quality: gradual Duration (how long): day(s) Timing of current episode: constant Progression: worsening Chronicity: recurrent Context: Denies recent illness, Denies recent surgery, Denies trauma/injury Relieving factors: none Exacerbating factors: none Associated symptoms: Reports denies other symptoms Treatments prior to arrival: none Past Medical/Family History Physician Review I have reviewed the patient's past medical and family history. Any updates have been documented here. Past Medical History Recent Fever: No Clinical Suspicion of Infectio: No New/Unexplained Change in Ment: No Past Medical History: Hypertension, Diabetes, Kidney Stones, Migraines, Anxiety, Hyperlipedemia, Lupus Other Medical History: Lyme disease, lymphEdema, lympharrhea Past Surgical History: Tubal Ligation Other Surgery: tonsillectomy,wisdom teeth removal, cyst drainage Social History Smoking Cessation: Never Smoker Alcohol Use: None Any Illegal Drug Use: No Family History Family history of heart diseas: No Other family history HTN,DM Other Last Tetanus: UTD Review of Systems Review of Systems Constitutional: Reports no symptoms EENTM: Reports no symptoms Cardiovascular: Reports no symptoms Respiratory: Reports no symptoms Gastrointestinal: Reports no symptoms Genitourinary: Reports no symptoms Musculoskeletal: Reports as per HPI Integumentary: Reports as per HPI Neurological: Reports no symptoms Psychological: Reports no symptoms Endocrine: Reports no symptoms Hematological/Lymphatic: Reports no symptoms Physical Exam Related Data Allergies: Coded Allergies: Fish Containing Products (Verified Allergy, Severe, 04/09/18) shellfish derived (Verified Allergy, Severe, 04/09/18) vancomycin (Verified Allergy, Severe, honey symdrome?, 04/09/18) bacitracin (Verified Allergy, Intermediate, causes skin to get yellow and crusty, 04/09/18) linezolid (Verified Allergy, Intermediate, 04/11/18) PATIENT HAS HIVES TO ARMS, LEGS , AND ABD AND BACK neomycin (Verified Allergy, Intermediate, causes skin to get crusty and yellow, 04/09/18) polymyxin B (Verified Allergy, Intermediate, causes skin to get crusty and yellow, 04/09/18) cefepime (Verified Allergy, Unknown, 11/17/18) iodine (Verified Allergy, Unknown, 04/09/18) meropenem (Verified Adverse Reaction, Unknown, hives, 11/18/18) Uncoded Allergies: CHITOSAN (Allergy, Unknown, 07/06/16) Triage Vital Signs Vital Signs Date Time Temp Pulse Resp B/P (MAP) Pulse Ox O2 Delivery O2 Flow Rate FiO2 01/04/20 02:30 98.6 109 22 167/103 98 Room Air Vital signs reviewed: Yes Physical Exam CONSTITUTIONAL Constitutional: Present well-developed, Present well-nourished, Present obese; Absent distressed HENT HENT: Present normocephalic, Present atraumatic, Present oropharynx clear/moist, Present nose normal HENT L/R: Present left ext ear normal, Present right ext ear normal EYES Eyes: Reports PERRL, Reports conjunctivae normal NECK Neck: Present ROM normal PULMONARY Pulmonary: Present effort normal, Present breath sounds normal CARDIOVASCULAR Cardiovascular: Present regular rhythm, Present heart sounds normal, Present capillary refill normal, Present normal rate GASTROINTESTINAL Abdominal: Present soft, Present nontender, Present bowel sounds normal GENITOURINARY Genitourinary: Present exam deferred SKIN Skin: Present warm, Present dry, Present erythema (TO BILATERAL LOWER EXTREMITIES, WARMTH PRESENT) MUSCULOSKELETAL Musculoskeletal: Present ROM normal, Present edema (LYMPHEDEMA TO BILATERAL LOWER EXTREMITIES), Present tenderness (BILATERAL LOWER EXTREMITITES) NEUROLOGICAL Neurological: Present alert, Present oriented x 3, Present no gross motor or sensory deficits PSYCHOLOGICAL Psychological: Present mood/affect normal, Present judgement normal Assessment & Plan Medical Decision Making MDM PT WITH RECURRENT CELLULITIS TO BILATERAL LOWER EXTREMITIES CBC, CMP, BLOOD CULTURE, UA, URINE CULTURE, LACTIC ACID ORDERED TO EVAL FOR LEUKOCYTOSIS, UTI, SEPSIS, ELECTROLYTE ABNORMALITY, LEVAQUIN 500 MG IV ORDERED BENADRYL 25 MG IV ORDERED LACTIC ACID 3.0, WBC 16k 1 LITER NS IV BOLUS ORDERED REPEAT LACTIC ACID 2.[address] NARVAEZ, ADMIT TO INPATIENT Assessment & Plan Final Impression: (1) Severe sepsis (2) Cellulitis of both lower extremities (3) Elevated WBC count Depart Disposition: ADMITTED Last Vital Signs Date Time Temp Pulse Resp B/P (MAP) Pulse Ox O2 Delivery O2 Flow Rate FiO2 01/04/20 02:30 98.6 109 22 167/103 98 Room Air Home Meds Reported Medications Sertraline Hcl (SERTRALINE HCL) 50 Mg Tablet, 50 MG PO DAILY PRN for AGITATION 02/07/19 Albuterol Sulfate (VENTOLIN HFA) 18 Gm Hfa.aer.ad, PO Q4HR PRN for ALLERGY 11/18/18 [Santyl] No Conflict Check, 1 APPLIC TOP DAILY 11/18/18 Furosemide (FUROSEMIDE) 40 Mg Tablet, 40 MG PO DAILY PRN for SWELLING 11/18/18 Epinephrine (EPINEPHRINE) 0.3 Mg/0.3 Ml Pen.injctr 11/18/18 Lisinopril (LISINOPRIL) 2.5 Mg Tablet, 2.5 MG PO DAILY PRN for BLOOD PRESSURE PER PATIENT, PT ONLY TAKES LISINOPPRIL NEEDED. 11/18/18 Glimepiride (GLIMEPIRIDE) 4 Mg Tablet, 4 MG PO DAILY 11/18/18 Cyclobenzaprine Hcl (CYCLOBENZAPRINE HCL) 10 Mg Tablet, 10 MG PO TID PRN for MUSCLE SPASMS 11/18/18 Hydrocodone Bit/Acetaminophen (HYDROCODON-ACETAMINOPHN 10-325) 1 Each Tablet, 1 TAB PO Q8H PRN for MODERATE PAIN (4-6) 11/18/18 Zolpidem Tartrate (ZOLPIDEM TARTRATE) 10 Mg Tablet, 10 MG PO HS 11/18/18 Alprazolam (ALPRAZOLAM) 0.25 Mg Tablet, 0.25 MG PO TID PRN for ANXIETY 11/18/18 Promethazine Hcl (PROMETHAZINE HCL) 25 Mg Tablet, 25 MG PO Q 6 H PRN 10/16/12 Atenolol (ATENOLOL) 25 Mg Tablet, 25 MG PO BID 06/25/12 FUNMILAYO CALLOWAY MD Jan 04, 2020 02:39
[2020-01-04] MEDS ORDERED: DIPHENHYDRAMINE HCL INJ 50 MG/ML VIAL IV SCH (02:45)
[2020-01-04 02:57] LABS: BILIRUBIN,URINE NEGATIVE (NEGATIVE); CLARITY,URINE CLEAR (CLEAR); COLOR,URINE YELLOW (YELLOW); KETONES,URINE NEGATIVE (NEGATIVE); LEUKOCYTE ESTERASE ,URINE NEGATIVE (NEGATIVE); NITRITE,URINE NEGATIVE (NEGATIVE); PROTEIN,URINE DIPSTICK NEGATIVE (NEGATIVE); URINE UROBILINOGEN 0.2 mg/dL (0.2 - 1)
[2020-01-04 03:03] LABS: BACTERIA,URINE FEW /HPF; EPITHELIAL CELLS,URINE FEW /LPF; RBC,URINE 0-5 /HPF (0-5); WBC,URINE (MAN) 0-5 /HPF (0-5)
[2020-01-04 03:04] LABS: BASOPHILS # (AUTO) 0.1 (0.0-0.1); BASOPHILS % 0.4 % (0.0-1.0); EOSINOPHILS % 0.1 % (0.0-6.0); HEMATOCRIT 36.4 % (34.2-44.1); HEMOGLOBIN 12.4 g/dL (12.0-16.0); LYMPHOCYTES # (AUTO) 2.3 (1.0-3.2); LYMPHOCYTES % 14.3 % (18.0-39.1); MEAN CORPUSCULAR HEMOGLOBIN 34.4 pg (28-32); MEAN CORPUSCULAR HGB CONC 34.1 g/dL (31-35); MEAN CORPUSCULAR VOLUME 101.1 fL (81-99); MONOCYTES % 6.1 % (4.4-11.3); NEUTROPHILS # (AUTO) 12.3 (2.1-6.9); NEUTROPHILS % 75.4 % (38.7-80.0); PLATELET COUNT 391 x10e3/uL (140-360); RED CELL DISTRIBUTION WIDTH 14.6 % (11.7-14.4)
[2020-01-04] MEDS: LEVOFLOXACIN 500MG/D5W 100ML 100 ML IV SCH (03:08)
[2020-01-04] MEDS ORDERED: HYDROMORPHONE 1MG/1ML INJ IV STA (03:14)
[2020-01-04] MEDS ORDERED: ONDANSETRON HCL INJ 2MG/ML 2ML 2 MG/ML VIAL IV STA (03:14)
[2020-01-04 03:23] LABS: ALANINE AMINOTRANSFERASE 27 IU/L (0-55); ALBUMIN 3.9 g/dL (3.5-5.0); ALBUMIN/GLOBULIN RATIO 1.5 (0.8-2.0); ALKALINE PHOSPHATASE 100 IU/L (40-150); ANION GAP 16.1 mmol/L (8-16); BLOOD UREA NITROGEN 18 mg/dL (7-26); BUN/CREATININE RATIO 20 (6-25); CALCIUM 8.3 mg/dL (8.4-10.2); CARBON DIOXIDE 20 mmol/L (22-29); CHLORIDE 105 mmol/L (98-107); CREATININE, SERUM 0.92 mg/dL (0.57-1.11); EST GLOMERULAR FILTRATION RATE > 60 ML/MIN (60-); GLUCOSE 283 mg/dL (74-118); POTASSIUM 4.1 mmol/L (3.5-5.1); SODIUM 137 mmol/L (136-145)
[2020-01-04] MEDS ORDERED: SODIUM CHLORIDE 0.9% 1000ML 1,000 ML ONE (03:34)
[2020-01-04] MEDS ORDERED: SODIUM CHLORIDE 0.9% 1000ML 1,000 ML IV ONE ×2 (03:45→04:15)
[2020-01-04] MEDS ORDERED: ACETAMINOPHEN 325 MG TAB PO PRN (04:15)
[2020-01-04] MEDS ORDERED: DEXTROSE 50% SYRINGE 50 ML IV PRN (04:15)
[2020-01-04] MEDS ORDERED: FUROSEMIDE 40 MG TAB PO PRN (04:45)
[2020-01-04] MEDS ORDERED: CYCLOBENZAPRINE HCL 10 MG TAB PO PRN (04:45)
--- NOTE | 2020-01-04 04:58 | NUR ---
pt arrived by stretcher to room 294, pt is aaox3, rr even and non-labored, on room air. pt ambulatory with stand by assist to bathroom and back to bed. oriented pt to hospital room, call light, phone, bed controls and lights. left pt laying semi fowlers in bed, bed in low locked position, side rails upx2, call light and phone within reach.
[2020-01-04] MEDS ORDERED: LUNESTA3 MG PO (06:15)
[2020-01-04] MEDS: HYDROMORPHONE 1MG/1ML INJ IV PRN ×7 (06:38→23:00)
[2020-01-04] MEDS ORDERED: FUROSEMIDE INJ 10 MG/ML 2 ML VIAL IV SCH (06:45)
--- NOTE | 2020-01-04 06:59 | History and Physical ---
REASON FOR ADMISSION: Sepsis secondary to cellulitis bilateral lower extremities. HISTORY OF PRESENT ILLNESS: The patient is a lady with chronic lymphedema, lupus, diabetes, hypertension, who presented with acute onset of redness and pain of her bilateral lower extremities, chronic lymphedema with increased swelling, where she is known to have sepsis and cellulitis and leukocytosis, so she was brought in for further treatment. PAST MEDICAL HISTORY: Significant for lupus, diabetes, hypertension, chronic lymphedema, and anxiety. MEDICATIONS: See MAR. ALLERGIES: SEE MAR. SOCIAL HISTORY: Nonsmoker and nondrinker. Lives at home. FAMILY HISTORY: Breast cancer, hypertension, and diabetes. PHYSICAL EXAMINATION: VITAL SIGNS: Temperature 98.6, pulse 74, pulse 92, blood pressure 156/72, sats 100% on room air. GENERAL: She is in no apparent distress, lying in bed. NECK: Supple. CARDIOVASCULAR: Regular rate and rhythm. LUNGS: Clear to auscultation bilaterally. ABDOMEN: Soft. Nontender. EXTREMITIES: Show 4+ edema in bilateral lower extremities with erythematous changes over the lower extremities below the knees with no open wounds. No seepage. They are warm to touch. NEUROLOGIC: Nonfocal. ASSESSMENT/PLAN: 1. Sepsis secondary to bilateral lower extremity cellulitis. Continue with antibiotics. 2. Edema/lymphedema. We will increase her Lasix to 3 times a day. 3. Hypertension. Continue with current care and restart medicines. 4. Diabetes. Continue to monitor. 5. Leukocytosis. Continue to monitor. 6. Anxiety disorder. Continue with the medications. Please see hospital chart for full details. MD SHARATH Sin/EDVIN /[id number]
--- NOTE | 2020-01-04 07:00 | NUR ---
BEDSIDE SHIFT REPORT RECEIVED FROM THE PIE FILLING MIXER RN. PT IS RESTING ON BED. CALL LIGHT WITH IN EASY REACH. BED IS LOW AND LOCKED. SIDE RAILS X2. BED ALARM IS ON. ALL SAFETY MEASURES IN PLACE.
--- NOTE | 2020-01-04 08:00 | NUR ---
PT IS AAOX3. EDUCATED PT ABOUT FALL PRECAUTIONS. PT VERBALIZED UNDERSTANDING. PT DENIES NEEDS AT THIS TIME.
[2020-01-04] MEDS: INSULIN REGULAR, HUMAN 100 UNIT/1 ML 3ML VIAL SQ SCH ×4 (08:45→20:36)
[2020-01-04] MEDS: FUROSEMIDE INJ 10 MG/ML 2 ML VIAL IV SCH ×3 (08:53→23:00)
[2020-01-04] MEDS: LISINOPRIL 2.5 MG TAB PO SCH (08:54)
--- OUTSIDE RECORDS SUMMARY | 2020-01-04 10:51 | XMS REPORT | Continuity of Care Document ---
Author Author [facility] Organization [facility] Address [address] [place] [address] Phone Unavailable Care Team Providers Care Gun Fertilizer Name Role Phone SOLANGE SORIA, MD ZURITA PCP PARMINDER NARVAEZ Attphys Unavailable DARBYESTER Attphys Unavailable BERNA, S AMBICA Attphys Unavailable SWEET, A LAIRD Attphys Unavailable PARMINDER NARVAEZ Admphys Unavailable Payers Payer Name Policy Type Policy Number Effective Date Expiration Date Kiko Marin [facility] [id number] 2011 00:00:00 [facility] Problems Condition Name Condition Details Condition Category Status Onset Date Resolution Date Last Treatment Date Treating Clinician Comments Source Chronic bronchitis Chronic bronchitis Problem Active 2014-07-02 00:00:0 0 [facility] Candidiasis of mouth and esophagus Thrush of mouth and esophagus Pr oblem Active 2014-07-02 00:00:00 [facility] Cellulitis Cellulitis Problem Active [facility] Edema of foot Pedal edema Problem Active [facility] Cellulitis and abscess of foot excluding toe Celluliti s and abscess of foot, except toes Problem Active [facility] Hypokalemia Hypokalemia Problem Active [facility] Edema Edema Problem Active [facility] Leukocytosis Elevated WBC count Problem Active [facility] Lupus erythematosus Lupus Problem Active [facility] Fall Fall Problem Active [facility] Laceration of left forearm Laceration of left forearm Problem Active [facility] Severe sepsis Severe sepsis Problem Active [facility] Urinary tract infection UTI (urinary tract infection) Problem Active [facility] Laceration of right knee Problem Active [facility] Cellulitis of both lower extremities Problem Active [facility] Allergies, Adverse Reactions, Alerts Allergy Name Allergy Type Status Severity Reaction(s) Onset Date Inacti ve Date Treating Clinician Comments Source Meropenem Propensity to adverse reactions Active hives 2018-0 8-03 00:00:00 [facility] Cefepime Allergy to substance Active 2018-11-17 00:00:00 [facility] Linezolid Allergy to substance Active Moderate 2018-04-11 00:00:00 [facility] Fish Containing Products Allergy to substance Active Severe 2018-04-09 00:00:00 [facility] Iodine Allergy to substance Active 2018-04-09 00:00:00 [facility] Neomycin Allergy to substance Active Moderate causes skin to get crusty and yellow 2018-04-09 00:00:00 [facility] Bacitracin Allergy to substance Active Moderate causes skin to get yellow and crusty 2018-04-09 00:00:00 [facility] Vancomycin Allergy to substance Active Severe honey symdrome ? 2018-04-09 00:00:00 [facility] Polymyxin b Allergy to substance Active Moderate causes skin to get crusty and yellow 2018-04-09 00:00:00 [facility] shellfish derived Allergy to substance Active Severe 2018-03-19 3 00:00:00 [facility] CHITOSAN Allergy to substance Active 2016-07-06 00:00:00 [facility] Social History Social Habit Start Date Stop Date Quantity Comments Source Sex Assigned At 1970 00:00:00 1970 00:00:00 Female [facility] Medications Ordered Medication Name Filled Medication Name Start Date Stop Da te Current Medication? Ordering Clinician Indication Dosage Frequency Signature (SIG) Comments Components Source Albuterol Sulfate (Ventolin Hfa) 18 Gm HFA.AER.AD Albu terol Sulfate (Ventolin Hfa) 18 Gm HFA.AER.AD Yes Every 4 Hours as needed for Allergy [facility] Alprazolam Alprazolam Yes .25 Three Time s A Day as needed for Anxiety [facility] Atenolol Atenolol Yes 25 Twice A Day [facility] Cyclobenzaprine Hcl Cyclobenzaprine Hcl Yes 10 Three Times A Day as needed for Muscle Spasms [facility] Epinephrine Epinephrine Yes C HI [facility] Furosemide Furosemide Yes 40 Daily as needed fo r Swelling [facility] Glimepiride Glimepiride Yes 4 Daily [facility] Hydrocodone Bit/Acetaminophen (Hydrocodon-Acetaminophn 10-325) 1 Each TABLET Hydrocodone Bit/Acetaminophen (Hydrocodon-Acetaminophn 10-325) 1 Each TABLET Yes 1 Every 8 Hours as needed for Mode rate Pain (4-6) [facility] Lisinopril Lisinopril Yes 2.5 Daily as needed fo r Blood Pressure [facility] Promethazine Hcl Promethazine Hcl Yes 25 Q 6 H Prn [facility] Santyl Santyl Yes 1 Daily [facility] Sertraline Hcl Sertraline Hcl Yes 50 Da justen as needed for Agitation [facility] Zolpidem Tartrate Zolpidem Tartrate Yes 10 Bedt omega [facility] Blood Sugar Diagnostic (One Touch Ultra Test Strips) 1 Each STRIP Blood Sugar Diagnostic (One Touch Ultra Test Strips) 1 Each STRIP 2019-02-07 00:00:00 No [facility] Carisoprodol (Soma) 350 Mg TABLET Carisoprodol (Soma) 350 Mg TAB LET 2018-11-18 00:00:00 No 350 Q8hrs [facility] Cephalexin Cephalexin 2018-11-18 00:00:00 No 750 Thr ee Times A Day [facility] Cephalexin Monohydrate (Keflex) 750 Mg CAPSULE Cephale isma Monohydrate (Keflex) 750 Mg CAPSULE 2018-11-18 00:00:00 No 1000 Every 8 H ours [facility] Ciprofloxacin Hcl (Cipro) 500 Mg TABLET Ciprofloxacin Hcl (C ipro) 500 Mg TABLET 2018-11-18 00:00:00 No 500 Twice A Day [facility] Doxycycline Hyclate Doxycycline Hyclate 2018-11-18 00:00:00 No 100 Every 12 Hours [facility] Doxycycline Hyclate Doxycycline Hyclate 2018-11-18 00:00:00 No 100 Twice A Day [facility] Hydrochlorothiazide Hydrochlorothiazide 2018-11-18 00:00:00 No 50 Daily [facility] Hydrocodone Bit/Acetaminophen (Vicodin Es 7.5-750 Mg T ablet) 1 Each TABLET Hydrocodone Bit/Acetaminophen (Vicodin Es 7.5-750 Mg Tablet) 1 Each TABLET 2018-11-18 00:00:00 No Q6hrs [facility] Metronidazole (Flagyl) 250 Mg TABLET Metronidazole (Flagyl) 250 Mg TABLET 2018-11-18 00:00:00 No 500 Every 8 Hours [facility] Lactulose Lactulose 2017-10-12 00:00:00 No 30 Every 8 Hours as needed for Constipation [facility] Sennosides/Docusate Sodium (Senna Laxative Tablet) 1 E ach TABLET Sennosides/Docusate Sodium (Senna Laxative Tablet) 1 Each TABLET 2017-10-12 00:00:00 No 1 Twice A Day [facility] Triamcinolone Acetonide (Kenalog-10) 10 Mg/1 Ml VIAL T riamcinolone Acetonide (Kenalog-10) 10 Mg/1 Ml VIAL 2012-10-16 00:00:00 No 1 Q6-8WEEKS [facility] Vital Signs Vital Name Observation Time Observation Value Comments Source Body Temperature 2019-10-08 09:03:00 98.7 [degF] [facility] Weight 2019-10-07 00:47:00 175.50 [lb_av] [facility] BMI (Body Mass Index) 2019-10-07 00:47:00 30.1 kg/m2 [facility] Procedures Procedure Date / Time Performed Performing Clinician Selena garcia Computed tomography of brain without radiopaque contrast 2019-09 00:00:00 [facility] Computed tomography of brain without radiopaque contrast 201 12-28-03 00:00:00 FUNMILAYO CALLOWAY [facility] Computed tomography of cervical spine without contrast 02-19 00:00:00 FUNMILAYO CALLOWAY [facility] CT of abdomen and pelvis without contrast 2019-02-19 00:00:00 [facility] X-ray of chest, two views 2019-01-27 00:00:00 SHEY EWING [facility] CT of abdomen and pelvis without contrast 2019-01-27 00:00:00 [facility] Plan of Care Planned Activity Planned Date Details Comments Source Instructions Cellulitis [facility] Instructions Diabetes and Diet [facility] Encounters Start Date/Time End Date/Time Encounter Type Admission Type Attendi [facility] Care Department Encounter ID Source 2019-02-19 04:25:00 2019-02-26 09:53:00 Discharged Inpatient 1 SOLANGE, PARMINDER [facility] [id number] [facility] 2019-02-07 17:41:00 2019-02-13 13:55:00 Discharged Inpatient 1 ESTER PASTOR [facility] [id number] [facility] 2019-01-27 11:45:00 2019-01-29 10:43:00 Discharged Inpatient (obs) 1 SHEY CORONEL [facility] [id number] [facility] 2018-11-17 19:27:00 2018-11-29 14:08:00 Discharged Inpatient 1 PARMINDER NARVAEZ [facility] [id number] [facility] 2018-04-09 16:03:00 2018-04-16 11:03:00 Discharged Inpatient 1 PARMINDER NARVAEZ [facility] [id number] [facility] 2017-10-08 06:02:00 2017-10-13 06:19:00 Discharged Inpatient 1 ALAN NAJERA [facility] [id number] [facility] Results Test Description Test Time Test Comments Results Result Comments Source Capillary blood glucose measurement by glucometer (mas s/volume) 2019-10-08 07:07:00 Test Item Bedside Glucose (test code = 42569-4) 181 70-120 Meter ID: [id number] leukocytes automated count (number/volume)2019-10-07 05:15:00* Test Item Value Reference Range Interpretation Comments White Blood Count (test code = 6690-2) 17.93 4.8-10.8 [facility] erythrocytes automated count (number/volume)2019-10-07 05:15:00* Test Item Value Reference Range Interpretation Comments Red Blood Count (test code = 789-8) 3.93 3.6-5.1 [facility] hemoglobin measurement (moles/volume)2019-10-07 05:15:00* Test Item Value Reference Range Interpretation Comments Hemoglobin (test code = 94298-4) 12.8 12.0-16.0 [facility] SpringsAutomated blood hematocrit (volume fraction)2019-10-07 05:15:00* Test Item Value Reference Range Interpretation Comments Hematocrit (test code = 4544-3) 38.4 34.2-44.1 [facility] SpringsAutomated erythrocyte mean corpuscular svzjka0110-04-88 05:15:00* Test Item Value Reference Range Interpretation Comments Mean Corpuscular Volume (test code = 787-2) 97.7 81-99 [facility] SpringsAutomated erythrocyte mean corpuscular hemoglobin (mass per erythrocyte)2019-10-07 05:15:00* Test Item Value Reference Range Interpretation Comments Mean Corpuscular Hemoglobin (test code = 785-6) 32.6 28-32 [facility] SpringsAutom[facility] erythrocyte mean corpuscular hemoglobin concentration measurement (mass/volume)2019-10-07 05:15:00* Test Item Value Reference Range Interpretation Comments Mean Corpuscular Hemoglobin Concent (test code = 786-4) 33.3 31-35 [facility] SpringsRDW RqtQk-Wgh4761-86-21 05:15:00* Test Item Value Reference Range Interpretation Comments Red Cell Distribution Width (test code = 24113-7) 13.7 11.7 -14.4 [facility] SpringsAutomated blood platelet count (count/volume)2019-10-07 05:15:00* Test Item Value Reference Range Interpretation Comments Platelet Count (test code = 777-3) 338 140-360 [facility] SpringsAutomated blood segmented neutrophil count as percentage of total kgupgbxqqj5584-79-33 05:15:00* Test Item Value Reference Range Interpretation Comments Neutrophils (%) (Auto) (test code = 14477-1) 73.2 38.7-80.0 [facility] SpringsAutomated blood lymphocyte count as percentage ot total iqcbgqitfq3688-15-60 05:15:00* Test Item Value Reference Range Interpretation Comments Lymphocytes (%) (Auto) (test code = 736-9) 15.6 18.0-39.1 [facility] SpringsAutomated blood monocyte count as percentage of total yvyecuvosx1991-72-96 05:15:00* Test Item Value Reference Range Interpretation Comments Monocytes (%) (Auto) (test code = 5905-5) 7.1 4.4-11.3 [facility] blood eosinophil count as percentage of total dnauefkfwr2096-17-44 05:15:00* Test Item Value Reference Range Interpretation Comments Eosinophils (%) (Auto) (test code = 713-8) 0.3 0.0-6.0 [facility]Autom[facility] blood basophil count as percentage of total adlevjptlu5508-16-15 05:15:00* Test Item Value Reference Range Interpretation Comments Basophils (%) (Auto) (test code = 706-2) 0.6 0.0-1.0 [facility] SpringsFluoroscopic procedure less than one hour qfqouexo1178-02-90 05:15:00* Test Item Value Reference Range Interpretation Comments IM GRANULOCYTES % (test code = IM GRANULOCYTES %) 3.2 0.0- 1.0 [facility] SpringsAutom[facility] blood neutrophil count 2019-10-07 05:15:00* Test Item Value Reference Range Interpretation Comments Neutrophils # (Auto) (test code = 751-8) 13.1 2.1-6.9 [facility] lymphocytes count (number/volume) 2019-10-07 05:15:00* Test Item Value Reference Range Interpretation Comments Lymphocytes # (Auto) (test code = 79509-4) 2.8 1.0-3.2 [facility]Bl[facility] monocytes automated count (number/volume)2019-10-07 05:15:00* Test Item Value Reference Range Interpretation Comments Monocytes # (Auto) (test code = 742-7) 1.3 0.2-0.8 [facility] SpringsAutom[facility] blood eosinophil count 2019-10-07 05:15:00* Test Item Value Reference Range Interpretation Comments Eosinophils # (Auto) (test code = 711-2) 0.1 0.0-0.4 [facility]Autom[facility] blood basophil count (count/volume)2019-10-07 05:15:00* Test Item Value Reference Range Interpretation Comments Basophils # (Auto) (test code = 704-7) 0.1 0.0-0.1 [facility] SpringsFluoroscopic procedure less than one hour hezdcfqe3089-54-20 05:15:00* Test Item Value Reference Range Interpretation Comments Absolute Immature Granulocyte (auto (anita t code = Absolute Immature Granulocyte (auto) 0.57 0-0.1 [facility] sodium measurement (moles/volume)2019-10-07 05:15:00* Test Item Value Reference Range Interpretation Comments Sodium Level (test code = 2951-2) 136 136-145 [facility] potassium measurement (moles/volume)2019-10-07 05:15:00* Test Item Value Reference Range Interpretation Comments Potassium Level (test code = 2823-3) 4.3 3.5-5.1 [facility] chloride measurement (moles/volume)2019-10-07 05:15:00* Test Item Value Reference Range Interpretation Comments Chloride Level (test code = 2075-0) 101 98-107 [facility] plasma carbon dioxide, total measurement (moles/volume)2019-10-07 05:15:00* Test Item Value Reference Range Interpretation Comments Carbon Dioxide Level (test code = 2028-9) 25 22-29 [facility] plasma anion lna2227-21-66 05:15:00* Test Item Value Reference Range Interpretation Comments Anion Gap (test code = 68462-6) 14.3 8-16 [facility] urea nitrogen measurement (mass/volume)2019-10-07 05:15:00* Test Item Value Reference Range Interpretation Comments Blood Urea Nitrogen (test code = 3094-0) 22 7-26 [facility] plasma creatinine measurement (mass/volume)2019-10-07 05:15:00* Test Item Value Reference Range Interpretation Comments Creatinine (test code = 2160-0) 0.99 0.57-1.11 [facility] plasma urea nitrogen/creatinine mass lxldn0689-01-85 05:15:00* Test Item Value Reference Range Interpretation Comments BUN/Creatinine Ratio (test code = 3097-3) 22 6-25 [facility] SpringsEstimated glomerular filtration rate (GFR) ojalnkysxwcxg7683-11-91 05:15:00* Test Item Value Reference Range Interpretation Comments Estimat Glomerular Filtration Rate (test code = 650022300) 60 >60 Ranges were taken from the National Kidney Disease Education Program and the [facility] [employer] [employer] literature.Reference ranges:60 or greater: Gzosfq65-19 ( for 3 consecutive months): Chronic kidney disease 15 or less: Kidney failureCHRISTUS [facility] – [facility] SpringsGlucose qcixehfqtdl0974-45-33 05:15:00* Test Item Value Reference Range Interpretation Comments Glucose Level (test code = XFJ3995) 227 74-118 [facility] or plasma calcium measurement (mass/volume)2019-10-07 05:15:00* Test Item Value Reference Range Interpretation Comments Calcium Level (test code = 25610-7) 8.9 8.4-10.2 [facility] SpringsCHEST XRAY LINE [id number] 11:27:00 [facility] [address] [address] Patient Name: ROSA ISELA BENITEZ MR #: [id number] : 1970 Age/Sex: 49/F Req #: [id number] Adm Physician: PARMINDER NARVAEZ MD Ordered by: PARMINDER NARVAEZ MD Report #: [id number] [facility]: [facility] Room[facility]Bed: [facility] Procedure: [id number] DX/CHEST X RAY LINE PLACEMENT Exam Date: [...] Bilirubin (test code = 1975-2) 0.4 0.2-1.2 [facility] SpringsFluoroscopic procedure less than one hour andfkrmc8271-97-87 05:00:00* Test Item Value Reference Range Interpretation Comments Aspartate Amino Transf (AST/SGOT) (test code = Aspartate Amino Transf (AST/SGOT)) 30 5-34 [facility] plasma alanine aminotransferase measurement (enzymatic activity/volume)2019-10-02 05:00:00* Test Item Value Reference Range Interpretation Comments Alanine Aminotransferase (ALT/SGPT) (test code = 1742-6) 59 0-55 [facility]rum or plasma protein measurement (mass/volume)2019-10-02 05:00:00* Test Item Value Reference Range Interpretation Comments Total Protein (test code = 2885-2) 6.4 6.5-8.1 [facility] plasma albumin measurement (mass/volume)2019-10-02 05:00:00* Test Item Value Reference Range Interpretation Comments Albumin (test code = 1751-7) 3.0 3.5-5.0 [facility] SpringsPlasma globulin measurement (mass/volume) 2019-10-02 05:00:00* Test Item Value Reference Range Interpretation Comments Globulin (test code = 45143-7) 3.4 2.3-3.5 [facility] albumin/globulin mass auszn3067-22-94 05:00:00* Test Item Value Reference Range Interpretation Comments Albumin/Globulin Ratio (test code = 1759-0) 0.9 0.8-2.0 [facility]ererum or plasma alkaline phosphatase measurement (enzymatic activity/volume)2019-10-02 05:00:00* Test Item Value Reference Range Interpretation Comments Alkaline Phosphatase (test code = 6768-6) 101 40-[address] [facility] procedure less than one hour onmqycqu7964-65-16 09:09:00* Test Item Value Reference Range Interpretation [...] complexity tests.Testing performed by [facility] [id number] [place], [place] [phone] Director: Jered Escobedo M.D.CLIA # [id number] [facility]woodBlood erjssok3329-86-90 07:55:00* Test Item Value Reference Range Interpretation Comments Blood Culture (test code = 45329738) NO GROWTH AFTER 5 DAYS, FINAL REPORT [facility] KingwoodCT BRAIN [id number] 06:53:[address] [address] Patient Name: ROSA ISELA BENITEZ MR #: [id number] : 1970 Age/Sex: 49/F Req #: [id number] Adm Physician: PARMINDER NARVAEZ MD Ordered by: FUNMILAYO CALLOWAY MD Report #: [id number] Location: [facility] Room/Bed: [address] [address] Procedure: [id number] CT /CT BRAIN WO Exam Date: 10/01/19 [...] Transcribed By: BRENDON on 10/01/19708 COPY TO: FUNIMLAYO CALLOWAY MD Fluoroscopic procedure less than one hour cyotupnl1153-09-25 05:50:00* Test Item Value Reference Range Interpretation Comments Differential Total Cells Counted (test code = Differgeoff tial Total Cells Counted) 100 [facility] blood neutrophils/100 leukocytes 2019-10-01 05:50:00* Test Item Value Reference Range Interpretation Comments Neutrophils % (Manual) (test code = 57170-8) 70 40-74 [facility] blood lymphocytes/100 leukocytes 2019-10-01 05:50:00* Test Item Value Reference Range Interpretation Comments Lymphocytes % (Manual) (test code = 737-7) 20 19-48 [facility] blood monocytes/100 leukocytes 2019-10-01 05:50:00* Test Item Value Reference Range Interpretation Comments Monocytes % (Manual) (test code = 744-3) 9 3.4-9.0 [facility] blood eosinophil count as percentage of total szpsdcvgih7531-21-75 05:50:00* Test Item Value Reference Range Interpretation Comments Eosinophils % (Manual) (test code = 714-6) 1 0-7 [facility] platelets count by estimate (number/volume)2019-10-01 05:50:00* Test Item Value Reference Range Interpretation Comments Platelet Estimate (test code = 77013-1) ADEQUATE [facility] SpringsPlatelet gmeksyktzs1182-31-28 05:50:00* Test Item Value Reference Range Interpretation Comments Platelet Morphology Comment (test code = 91864-1) NORMAL [facility] SpringsBlood hypochromia detection by light dktcowkhms0383-37-78 05:50:00* Test Item Value Reference Range Interpretation Comments Hypochromasia (test code = 728-6) SLIGHT [facility] SpringsRBC xbwyoadxmm4984-23-39 05:50:00* Test Item Value Reference Range Interpretation Comments Red Cell Morphology Comment (test code = 6742-1) NORMAL [facility] SpringsUrine color pbnjwmnagokee1431-94-49 05:50:00* Test Item Value Reference Range Interpretation Comments Urine Color (test code = 5778-6) YELLOW YELLOW [facility] SpringsUrine oypjgma0467-94-33 05:50:00* Test Item Value Reference Range Interpretation Comments Urine Clarity (test code = 89702-4) CLEAR CLEAR [facility] Centerpecific gravity of Urine by Test strip 2019-10-01 05:50:00* Test Item Value Reference Range Interpretation Comments Urine Specific Marble (test code = 5811-5) 1.020 1.010-1.02 5 [facility] SpringsUrine pH measurement by automated test dqclu5554-39-12 05:50:00* Test Item Value Reference Range Interpretation Comments Urine pH (test code = 98659-9) 6 5-7 [facility] SpringsUrine leukocyte esterase detection by gkoyqhky5881-52-24 05:50:00* Test Item Value Reference Range Interpretation Comments Urine Leukocyte Esterase (test code = 5799-2) NEGATIVE NEGATIVE [facility] SpringsUrine nitrite tbqeajhpi5682-63-68 05:50:00* Test Item Value Reference Range Interpretation Comments Urine Nitrite (test code = 54577-1) NEGATIVE NEGATIVE [facility] SpringsUrine protein measurement by test strip (mass/volume)2019-10-01 05:50:00* Test Item Value Reference Range Interpretation Comments Urine Protein (test code = 5804-0) NEGATIVE NEGATIVE [facility] SpringsUrine glucose gzbhivffe6557-49-61 05:50:00* Test Item Value Reference Range Interpretation Comments Urine Glucose (UA) (test code = 2349-9) NEGATIVE NEGATIVE [facility] SpringsUrine ketones detection by automated test caskx6001-46-00 05:50:00* Test Item Value Reference Range Interpretation Comments Urine Ketones (test code = 95092-0) NEGATIVE NEGATIVE [facility] SpringsUrine urobilinogen measurement by test strip (mass/volume)2019-10-01 05:50:00* Test Item Value Reference Range Interpretation Comments Urine Urobilinogen (test code = 65668-0) 0.2 0.2-1 [facility] SpringsUrine total bilirubin measurement (mass/volume)2019-10-01 05:50:00* Test Item Value Reference Range Interpretation Comments Urine Bilirubin (test code = 1978-6) NEGATIVE NEGATIVE [facility] SpringsUrine erythrocytes hfksqboev0820-56-35 05:50:00* Test Item Value Reference Range Interpretation Comments Urine Blood (test code = 48482-7) TRACE NEGATIVE [facility] SpringsAutomated urine sediment leukocyte count by microscopy (number/high power field)2019-10-01 05:50:00* Test Item Value Reference Range Interpretation Comments Urine WBC (test code = 5821-4) 0-5 0-5 [facility] SpringsErythrocytes detection in urine sediment by light dfqwmyiutq3175-36-05 05:50:00* Test Item Value Reference Range Interpretation Comments Urine RBC (test code = 79418-5) 0-5 0-5 [facility] SpringsBacteria detection in urine sediment by light atqugvtjkn3606-02-58 05:50:00* Test Item Value Reference Range Interpretation Comments Urine Bacteria (test code = 16244-8) FEW NONE [facility] SpringsEpithelial cells detection in urine sediment by light fmhracaufy4210-54-15 05:50:00* Test Item Value Reference Range Interpretation Comments Urine Epithelial Cells (test code = 27673-9) FEW NONE [facility] SpringsYeast detection in urine sediment by light shekwrkhpc8832-61-92 05:50:00* Test Item Value Reference Range Interpretation Comments Urine Yeast (test code = 13903-2) RARE NONE [facility] SpringsBedside Jeqohil0459-09-06 08:11:00* Test Item Value Reference Range Interpretation Comments Bedside Glucose (test code = 50406-3) 147 70-120 H Meter ID: [id number] [facility] – Medical CenterPlatelet Morphology Zlkjepb4562-84-76 08:00:00* Test Item Value Reference Range Interpretation Comments Platelet Morphology Comment (test code = 10399-0) NO EDTA PLT CLUMP S SEEN [facility] Centerodium Anniw5056-38-08 07:25:00* Test Item Value Reference Range Interpretation Comments Sodium Level (test code = 2951-2) 139 136-145 [facility] SpringsPotassium Exbln6033-40-50 07:25:00* Test Item Value Reference Range Interpretation Comments Potassium Level (test code = 2823-3) 4.3 3.5-5.1 [facility] SpringsChloride Moeea9215-00-74 07:25:00* Test Item Value Reference Range Interpretation Comments Chloride Level (test code = 2075-0) 108 98-107 H [facility] SpringsCarbon Dioxide Rmqxk6956-15-20 07:25:00* Test Item Value Reference Range Interpretation Comments Carbon Dioxide Level (test code = 2028-9) 21 22-29 L [facility] SpringsAnion Oci7740-82-40 07:25:00* Test Item Value Reference Range Interpretation Comments Anion Gap (test code = 89514-2) 14.3 8-16 [facility] SpringsBlood Urea Klfusgrr0803-04-14 07:25:00* Test Item Value Reference Range Interpretation Comments Blood Urea Nitrogen (test code = 3094-0) 8 7-26 [facility] SpringsCreatinine2019-11-09 07:25:00* Test Item Value Reference Range Interpretation Comments Creatinine (test code = 2160-0) 0.67 0.57-1.11 [facility] SpringsBUN/Creatinine Nzhgx8138-82-28 07:25:00* Test Item Value Reference Range Interpretation Comments BUN/Creatinine Ratio (test code = 3097-3) 12 6-25 [facility] SpringsEstimat Glomerular Filtration Rate 2019-02-24 07:25:00* Test Item Value Reference Range Interpretation Comments Estimat Glomerular Filtration Rate (test code = 562321460) > 60 >60 Ranges were taken from the National Kidney Disease Education Program and the [facility] Foundation literature.Reference ranges:60 or greater: Ukttke99-84 ( for 3 consecutive months): Chronic kidney disease 15 or less: Kidney failureCHI [facility] KingwoodGlucose Zzdjp3902-03-66 07:25:00* Test Item Value Reference Range Interpretation Comments Glucose Level (test code = YQQ5070) 174 74-118 H [facility] SpringsCalcium Drpxj6683-56-88 07:25:00* Test Item Value Reference Range Interpretation Comments Calcium Level (test code = 90333-9) 9.0 8.4-10.2 [facility] SpringsMagnesium Ufmup7504-75-50 07:25:00* Test Item Value Reference Range Interpretation Comments Magnesium Level (test code = 57239-1) 1.8 1.3-2.1 [facility] SpringsTotal Umnotlgbn4305-97-40 07:25:00* Test Item Value Reference Range Interpretation Comments Total Bilirubin (test code = 1975-2) 0.4 0.2-1.2 [facility] SpringsAspartate Amino Transf (AST/SGOT) 2019-02-24 07:25:00* Test Item Value Reference Range Interpretation Comments Aspartate Amino Transf (AST/SGOT) (test code = Aspartate Amino Transf (AST/SGOT)) 19 5-34 [facility] SpringsAlanine Aminotransferase (ALT/SGPT) 2019-02-24 07:25:00* Test Item Value Reference Range Interpretation Comments Alanine Aminotransferase (ALT/SGPT) (test code = 1742-6) 31 0-55 [facility] SpringsTotal Pbcxijz6323-38-05 07:25:00* Test Item Value Reference Range Interpretation Comments Total Protein (test code = 2885-2) 6.1 6.5-8.1 L [facility] SpringsAlbumin2019-11-09 07:25:00* Test Item Value Reference Range Interpretation Comments Albumin (test code = 1751-7) 2.2 3.5-5.0 L [facility] SpringsGlobulin2019-11-09 07:25:00* Test Item Value Reference Range Interpretation Comments Globulin (test code = 82262-5) 3.9 2.3-3.5 H [facility] SpringsAlbumin/Globulin Zxuvu1128-66-31 07:25:00 * Test Item Value Reference Range Interpretation Comments Albumin/Globulin Ratio (test code = 1759-0) 0.6 0.8-2.0 L [facility] SpringsAlkaline Ranibypetmj2459-28-53 07:25:00* Test Item Value Reference Range Interpretation Comments Alkaline Phosphatase (test code = 6768-6) 233 40-150 H [facility] SpringsWhite Blood Zutno4950-24-24 07:13:00* Test Item Value Reference Range Interpretation Comments White Blood Count (test code = 6690-2) 13.13 4.8-10.8 H [facility] SpringsRed Blood Whtdc9858-79-81 07:13:00* Test Item Value Reference Range Interpretation Comments Red Blood Count (test code = 789-8) 3.90 3.6-5.1 [facility] SpringsHemoglobin2019-11-09 07:13:00* Test Item Value Reference Range Interpretation Comments Hemoglobin (test code = 95069-5) 12.5 12.0-16.0 [facility] SpringsHematocrit2019-11-09 07:13:00* Test Item Value Reference Range Interpretation Comments Hematocrit (test code = 4544-3) 38.5 34.2-44.1 [facility] SpringsMean Corpuscular Trgjdx4042-01-51 07:13:00* Test Item Value Reference Range Interpretation Comments Mean Corpuscular Volume (test code = 787-2) 98.7 81-99 [facility] SpringsMean Corpuscular Kxbcyzkftv6157-54-87 07:13:00* Test Item Value Reference Range Interpretation Comments Mean Corpuscular Hemoglobin (test code = 785-6) 32.1 28-32 H [facility] SpringsMean Corpuscular Hemoglobin Concent 2019-02-24 07:13:00* Test Item Value Reference Range Interpretation Comments Mean Corpuscular Hemoglobin Concent (test code = 786-4) 32.5 31-35 [facility] SpringsRed Cell Distribution Zerey0846-88-86 07:13:00* Test Item Value Reference Range Interpretation Comments Red Cell Distribution Width (test code = 94244-3) 14.8 11.7 -14.4 H [facility] SpringsPlatelet Ncbwt8989-09-45 07:13:00* Test Item Value Reference Range Interpretation Comments Platelet Count (test code = 777-3) 210 140-360 [facility] SpringsNeutrophils (%) (Auto)2019-02-24 07:13:00 * Test Item Value Reference Range Interpretation Comments Neutrophils (%) (Auto) (test code = 17420-8) 73.6 38.7-80.0 [facility] SpringsLymphocytes (%) (Auto)2019-02-24 07:13:00 * Test Item Value Reference Range Interpretation Comments Lymphocytes (%) (Auto) (test code = 736-9) 17.6 18.0-39.1 L [facility] SpringsMonocytes (%) (Auto)2019-02-24 07:13:00* Test Item Value Reference Range Interpretation Comments Monocytes (%) (Auto) (test code = 5905-5) 4.4 4.4-11.3 [facility] SpringsEosinophils (%) (Auto)2019-02-24 07:13:00 * Test Item Value Reference Range Interpretation Comments Eosinophils (%) (Auto) (test code = 713-8) 0.9 0.0-6.0 [facility] SpringsBasophils (%) (Auto)2019-02-24 07:13:00* Test Item Value Reference Range Interpretation Comments Basophils (%) (Auto) (test code = 706-2) 0.5 0.0-1.0 [facility] SpringsIM GRANULOCYTES %2019-02-24 07:13:00* Test Item Value Reference Range Interpretation Comments IM GRANULOCYTES % (test code = IM GRANULOCYTES %) 3.0 0.0- 1.0 H [facility] SpringsNeutrophils # (Auto)2019-02-24 07:13:00* Test Item Value Reference Range Interpretation Comments Neutrophils # (Auto) (test code = 751-8) 9.7 2.1-6.9 H [facility] SpringsLymphocytes # (Auto)2019-02-24 07:13:00* Test Item Value Reference Range Interpretation Comments Lymphocytes # (Auto) (test code = 20486-4) 2.3 1.0-3.2 [facility] SpringsMonocytes # (Auto)2019-02-24 07:13:00* Test Item Value Reference Range Interpretation Comments Monocytes # (Auto) (test code = 742-7) 0.6 0.2-0.8 [facility] SpringsEosinophils # (Auto)2019-02-24 07:13:00* Test Item Value Reference Range Interpretation Comments Eosinophils # (Auto) (test code = 711-2) 0.1 0.0-0.4 [facility] SpringsBasophils # (Auto)2019-02-24 07:13:00* Test Item Value Reference Range Interpretation Comments Basophils # (Auto) (test code = 704-7) 0.1 0.0-0.1 [facility] SpringsAbsolute Immature Granulocyte (auto 2019-02-24 07:13:00* Test Item Value Reference Range Interpretation Comments Absolute Immature Granulocyte (auto (anita t code = Absolute Immature Granulocyte (auto) 0.39 0-0.1 H [facility] Centererum or plasma magnesium measurement (mass/volume)2019-02-24 05:30:00* Test Item Value Reference Range Interpretation Comments Magnesium Level (test code = 99517-2) 1.8 1.3-2.1 [facility] SpringsBlood Geipola7229-20-90 03:54:00* Test Item Value Reference Range Interpretation Comments Blood Culture (test code = 99351812) NO GROWTH AFTER 5 DAYS, FINAL REPORT [facility] RockINUSES (PARANASAL)MIN 0WZUQE1841-37-72 08:50:00 [facility] [address] [address] Patient Name: ROSA ISELA BENITEZ MR #: [id number] : 1970 Age/Sex: 49/F Req #: [id number] Adm Physician: PARMINDER NARVAEZ MD Ordered by: PARMINDER NARVAEZ MD Report #: [id number] Location: MED/SURG3 Room/Bed: [facility] Procedure: [id number] DX/SINUSES (PARANASAL)MIN 3VIEWS Exam Date: 02/23/19 Exam [...] MD 08 COPY TO: PARMINDER NARVAEZ C-Reactive Gspaioo7166-89-65 21:19:00* Test Item Value Reference Range Interpretation Comments C-Reactive Protein (test code = 1988-5) 589 0-10 H Results confirmed ondilution.Performed at: [facility] - [facility] [id number] [facility], [place], [place] [id number] Director: Prasanna Mishra MD, Phone: [phone] [facility] – Sulphur SpringsUrine Wokytii6841-54-33 08:02:00* Test Item Value Reference Range Interpretation Comments Urine Culture (test code = 630-4) No Result Data Provided [facility] SpringsErythrocyte Sedimentation Goxz2542-48-03 09:56:00* Test Item Value Reference Range Interpretation Comments Erythrocyte Sedimentation Rate (test code = 4537-7) 80 0- 20 H [facility] SpringsDifferential Total Cells Counted 2019-02-20 08:47:00* Test Item Value Reference Range Interpretation Comments Differential Total Cells Counted (test code = Zain tial Total Cells Counted) 100 [facility] SpringsNeutrophils % (Manual)2019-02-20 08:47:00 * Test Item Value Reference Range Interpretation Comments Neutrophils % (Manual) (test code = 64076-0) 74 40-74 [facility] SpringsBand Neutrophils %2019-02-20 08:47:00* Test Item Value Reference Range Interpretation Comments Band Neutrophils % (test code = 764-1) 16 [facility] SpringsLymphocytes % (Manual)2019-02-20 08:47:00 * Test Item Value Reference Range Interpretation Comments Lymphocytes % (Manual) (test code = 737-7) 3 19-48 L [facility] SpringsMonocytes % (Manual)2019-02-20 08:47:00* Test Item Value Reference Range Interpretation Comments Monocytes % (Manual) (test code = 744-3) 7 3.4-9.0 [facility] SpringsPlatelet Uhnrulaz8702-36-63 08:47:00* Test Item Value Reference Range Interpretation Comments Platelet Estimate (test code = 69757-8) SLIGHTLY DECREASED [facility] SpringsPoikilocytosis2019-11-05 08:47:00* Test Item Value Reference Range Interpretation Comments Poikilocytosis (test code = 779-9) SLIGHT [facility] SpringsAnisocytosis2019-11-05 08:47:00* Test Item Value Reference Range Interpretation Comments Anisocytosis (test code = 702-1) SLIGHT [facility] SpringsToxic Dlululzxkiy4396-31-19 08:47:00* Test Item Value Reference Range Interpretation Comments Toxic Granulation (test code = 803-7) MODERATE [facility] SpringsRed Cell Morphology Tjulxst7129-87-54 08:47:00* Test Item Value Reference Range Interpretation Comments Red Cell Morphology Comment (test code = 6742-1) NORMAL [facility] SpringsErythrocyte sedimentation rate by Westergren txzuta0318-41-90 07:40:00* Test Item Value Reference Range Interpretation Comments Erythrocyte Sedimentation Rate (test code = 4537-7) 80 0- 20 [facility] Centererum or plasma C reactive protein measurement (mass/volume)2019-02-20 07:40:00* Test Item Value Reference Range Interpretation Comments C-Reactive Protein (test code = 1988-5) 589 0-10 Results confirmed ondilution.Performed at: Help/Systems - [facility] [address] [id number] Director: Prasanna Mishra MD, Phone: [phone] [facility]ph[facility] SpringsManual blood band neutrophils form/100 ueckneuiic6280-16-09 04:55:00* Test Item Value Reference Range Interpretation Comments Band Neutrophils % (test code = 764-1) 16 [facility] SpringsBlood poikilocytosis detection by light fgqywamacy4532-00-96 04:55:00* Test Item Value Reference Range Interpretation Comments Poikilocytosis (test code = 779-9) SLIGHT [facility] SpringsBlood anisocytosis detection by light iwgibnbibt2693-95-01 04:55:00* Test Item Value Reference Range Interpretation Comments Anisocytosis (test code = 702-1) SLIGHT [facility] SpringsBlood toxic granules detection by light ofirhsfrde8232-36-55 04:55:00* Test Item Value Reference Range Interpretation Comments Toxic Granulation (test code = 803-7) MODERATE [facility] SpringsCT ABDOMEN/PELVIS SL5726-78-49 20:27:00 [facility] [address] [address] Patient Name: ROAS ISELA BENITEZ MR #: [id number] : Age/Sex: 49/F Req #: [id number] Adm Physician: PARMINDER NARVAEZ MD Ordered by: KATIE BOWEN MD Report #: [id number] Location: [facility]SURG3 Room/Bed: [facility] Procedure: [id number] CT/CT ABDOMEN/PELVIS WO Exam Date: 02/19/19 Exam Ti me: 1999 REPORT STATUS: Signed C T Abdomen and Pelvis without contrast INDICATION: Rule out infection, R/O INFECTION [id number] TECHNIQUE: Thin collimation axial images obtained [...] abdomen or pelvis. Signed by: Dr. Lizzy Alonos MD on 9 8:32 PM Dictated By: LIZZY ALONSO MD 31 Transcribed By: BRENDON on 02/19/192031 COPY TO: KATIE BOWEN MD Lactic Acid Bvkei0820-43-94 08:35:00* Test Item Value Reference Range Interpretation Comments Lactic Acid Level (test code = Lactic Acid Level) 3.6 0.5- 2.0 HH Results repeated and called to MAGEN MOON RN at 0834 on 02/19/19 by Kari Patton. Read back and verified.[facility] SpringsFluoroscopic procedure less than one hour zlldzmng7454-43-66 07:10:00* Test Item Value Reference Range Interpretation Comments Lactic Acid Level (test code = Lactic Acid Level) 3.6 0.5- 2.0 Results repeated and called to MAGEN MOON RN at 0834 on 02/19/19 by Kari Patton. Read back and verified.[facility] SpringsFOREARM LEFT 2 CHJS5641-58-97 03:17:00 [facility] [address] [address] Patient Name: ROSA ISELA BENITEZ MR #: [id number] : 1970 Age/Sex: 49/F Req #: [id number] Adm Physician: Ordered by: FUNMILAYO CALLOWAY MD Report #: [id number] Location: ER Room/Bed: Procedure: 1 104-0019 DX/FOREARM [...] MD FOREARM RIGHT 2 VIEW 2019-02-19 03:17:[address] [address] Patient Name: ROSA ISELA BENITEZ MR #: [id number] : 1970 Age/Sex: 49/F Req #: [id number] Adm Physician: Ordered by: FUNMILAYO CALLOWAY MD Report #: [id number] Location: ER Room/Bed: Procedure: 1 104-0018 DX/FOREARM [...] CALLOWAY MD CHEST SINGLE (PORTABLE) 2019-02-19 03:14:00 [address] [address] Patient Name: ROSA ISELA BENITEZ MR #: [id number] : 1970 Age/Sex: 49/F Req #: [id number] Adm Physician: Ordered by: FUNMILAYO CALLOWAY MD Report #: [id number] Location: ER Room/Bed: Procedure: 1 104-0021 DX/CHEST [...] COPY TO: FUNMILAYO CALLOWAY 3 + VIEWS WRGDP6863-40-34 03:13:00 [address], [place], [place] [address] Patient Name: ROSA ISELA BENITEZ MR #: [id number] : 1970 Age/Sex: 49/F Req #: [id number] Adm Physician: Ordered by: FUNMILAYO CALLOWAY MD Report #: [id number] Location: ER Room/Bed: Procedure: 1 104-0017 DX/ANKLE [...] TO: FUNMILAYO CALLOWAY MD KNEE RIGHT THREE RUNZG4148-64-20 03:11:[address] [address] Patient Name: ROSA ISELA BENITEZ MR #: [id number] : Age/Sex: 49/F Req #: [id number] Adm Physician: Ordered by: FUNMILAYO CALLOAWY MD Report #: [id number] Location: ER Room/Bed: Procedure: 1 104-0016 DX/KNEE [...] on 02/19/19312 COPY TO: FUNMILAYO CALLOWAY MD [facility] BILAT 3-4VWS (+/- PELVIS) 2019-02-19 03:09:[address] [address] Patient Name: ROSA ISELA BENITEZ MR #: [id number] : 1970 Age/Sex: 49/F Req #: [id number] Adm Physician: Ordered by: FUNMILAYO CALLOWAY MD Report #: [id number] Location: ER Room/Bed: Procedure: 1 104-0020 DX/HIPS [...] 02/19/19310 COPY TO: FUNMILAYO CALLOWAY Bacterial urine qpjuzbw0168-67-91 02:55:00* Test Item Value Reference Range Interpretation Comments Urine Culture (test code = 630-4) KLEBSIELLA PNEUMONIAE [facility] KingwoodCT CERVICAL SPINE RT8989-14-58 02:45:00 [facility] [address] [place] [address] Patient Name: ROSA ISELA BENITEZ MR #: [id number] : Age/Sex: 49/F Req #: [id number] Adm Physician: Ordered by: FUNMILAYO CALLOWAY MD Report #: [id number] Location: ER Room/Bed: Procedure: 1 104-0003 CT/CT [...] CALLOWAY MD CT BRAIN WO 2019-02-19 02:42:00 [address] [address] Patient Name: ROSA ISELA BENITEZ MR #: [id number] : 1970 Age/Sex: 49/F Req #: [id number] Adm Physician: Ordered by: FUNMILAYO CALLOWAY MD Report #: [id number] Location: ER Room/Bed: Procedure: 1 104-0002 CT/CT [...] COPY TO: FUNMILAYO CALLOWAY MD Creatine Kinase KN0362-75-78 02:23:00* Test Item Value Reference Range Interpretation Comments Creatine Kinase MB (test code = 55296-2) 0.60 0-5.0 [facility] R2686-49-24 02:23:00* Test Item Value Reference Range Interpretation Comments Troponin I (test code = FMY3252) < 0.001 0-0.300 [facility] SpringsCreatine Mzhlmb5775-92-88 02:11:00* Test Item Value Reference Range Interpretation Comments Creatine Kinase (test code = 2157-6) 17 29-168 L [facility] SpringsActivated Partial Thromboplast Time 2019-02-19 02:02:00* Test Item Value Reference Range Interpretation Comments Activated Partial Thromboplast Time (test code = 38203-8) 22.8 23.8-35.5 L [facility] SpringsProthrombin Uisj3854-31-34 02:01:00* Test Item Value Reference Range Interpretation Comments Prothrombin Time (test code = 5902-2) 11.9 11.9-14.5 [facility] SpringsProthromb Time International Ratio 2019-02-19 02:01:00* Test Item Value Reference Range Interpretation Comments Prothromb Time International Ratio (test code = 6301-6) 0.83 Oral Anticoagulant Therapy INR Values:1. Low Intensity Therapy 1.5 - 2.02 . Moderate Intensity Therapy 2.0 - 3.03. High Intensity Therapy(1) 2.5 - 3. 54. High Intensity Therapy(2) 3.0 - 4.05. Panic Value INR > 5.0 [facility] SpringsUrine Opiates Fmkwox3452-32-37 02:01:00* Test Item Value Reference Range Interpretation Comments Urine Opiates Screen (test code = 74998-1) POSITIVE NEGATIVE H ALL TESTS PERFORMED MANUALLY ON [employer] TOX/SEE TEST This test provides only a sc reen. Positive results should be repeated by a confirmatory test. PO SITIVE TCACHRISTUS [facility] Sulphur SpringsUrine Barbiturates Screen 2019-02-19 02:01:00* Test Item Value Reference Range Interpretation Comments Urine Barbiturates Screen (test code = 884733456) NEGATIVE NEGA TIVE [facility] SpringsUrine Phencyclidine Yvjjel2524-45-31 02:01:00* Test Item Value Reference Range Interpretation Comments Urine Phencyclidine Screen (test code = 78128-7) NEGATIVE NEGAT DAMIEN [facility] SpringsUrine Amphetamines Djuqih8245-89-78 02:01:00* Test Item Value Reference Range Interpretation Comments Urine Amphetamines Screen (test code = 56051-3) NEGATIVE NEGATI VE [facility] SpringsUrine Methamphetamines Xfpabr6155-91-37 02:01:00* Test Item Value Reference Range Interpretation Comments Urine Methamphetamines Screen (test code = Urine Metha mphetamines Screen) NEGATIVE NEGATIVE [facility] [facility] Springs[facility]rine Benzodiazepines [id number] 02:01:00* Test Item Value Reference Range Interpretation Comments Urine Benzodiazepines Screen (test code = 91579-2) POSITIVE NEG ATIVE H This test provides only a screen. Positive results should be repeated by a confi rmatory test.[facility] Cocaine Screen 2019-02-19 02:01:00* Test Item Value Reference Range Interpretation Comments Urine Cocaine Screen (test code = 3398-5) NEGATIVE NEGATIVE [facility] Cannabinoids [id number] 02:01:00* Test Item Value Reference Range Interpretation Comments Urine Cannabinoids Screen (test code = 70163-2) NEGATIVE NEGATI VE THESE RESULTS ARE FOR MEDICAL TREATMENT ONLYTHIS REPORT CONTAINS UNCONFIR MED SCREENING RESULTS*POSITIVE RESULTS WILL BE CONFIRMED BY REFERENCE LAB UPON R EQUEST CUT-OFFDRUG CLASS CONCENTRATION ng/mLAmphetamines 1000Methamphetamines 1000Cocaine 300Opiate 300Phencyc lidine 25Cannabinoid 50Barbiturates 300Benzodiazepine 300Methadone 300[facility] Methadone Odbkbe3772-83-18 02:01:00* Test Item Value Reference Range Interpretation Comments Urine Methadone Screen (test code = 34792-5) POSITIVE NEGATIVE H This test provides only a screen. Positive results should be repeated by a confi rmatory test.THESE RESULTS ARE FOR MEDICAL TREATMENT ONLYTHIS REPORT CONT AINS UNCONFIRMED SCREENING RESULTS*POSITIVE RESULTS WILL BE CONFIRMED BY REFEREN CE LAB UPON REQUEST CUT-OFFDRUG CLASS CON CENTRATION ng/mLAmphetamines 1000Methamp hetamines 1000Cocaine Metabolite 300Opiate 300Phencyclidine 25Cannabinoid 50Barbiturates 300Benzodiazepine 300Methadone 30 0[facility] [id number] 02:01:00* Test Item Value Reference Range Interpretation Comments Urine WBC (test code = 5821-4) >50 0-5 H [facility]Urine [id number] 02:01:00* Test Item Value Reference Range Interpretation Comments Urine RBC (test code = 15997-6) 6-10 0-5 H [facility]rine Duqjclkb1207-88-87 02:01:00* Test Item Value Reference Range Interpretation Comments Urine Bacteria (test code = 98222-7) MANY NONE H [facility] Epithelial Atmar9983-68-48 02:01:00 * Test Item Value Reference Range Interpretation Comments Urine Epithelial Cells (test code = 69541-2) FEW NONE [facility] Transitional Epithelial Cells 2019-02-19 02:01:00* Test Item Value Reference Range Interpretation Comments Urine Transitional Epithelial Cells (test code = 8249-5) FEW NONE H [facility] Springs[facility]rine Coarse Granular [id number] 02:01:00* Test Item Value Reference Range Interpretation Comments Urine Coarse Granular Casts (test code = 22510-9) 1-5 >0 H [facility] SpringsUrine Qvncy6747-40-84 01:58:00* Test Item Value Reference Range Interpretation Comments Urine Color (test code = 5778-6) ORANGE YELLOW H [facility] SpringsUrine Wmbhapm2518-63-27 01:58:00* Test Item Value Reference Range Interpretation Comments Urine Clarity (test code = 04926-4) CLOUDY CLEAR H [facility] SpringsUrine Specific Bustrbp2888-15-29 01:58:00 * Test Item Value Reference Range Interpretation Comments Urine Specific Marble (test code = 5811-5) >=1.030 1.010-1.02 5 [facility] SpringsUrine [id number] 01:58:00* Test Item Value Reference Range Interpretation Comments Urine pH (test code = 85083-0) 6 5-7 [facility] Leukocyte Figwfbia9963-46-85 01:58:00* Test Item Value Reference Range Interpretation Comments Urine Leukocyte Esterase (test code = 57203-6) SMALL NEGATIV E [facility] Ojgmpkz7122-55-81 01:58:00* Test Item Value Reference Range Interpretation Comments Urine Nitrite (test code = 83297-7) POSITIVE NEGATIVE H [facility] Voesjcy2063-01-49 01:58:00* Test Item Value Reference Range Interpretation Comments Urine Protein (test code = 66089-1) 1+ NEGATIVE H [facility] Glucose (UA)2019-02-19 01:58:00* Test Item Value Reference Range Interpretation Comments Urine Glucose (UA) (test code = 58038-6) 1+ NEGATIVE [facility] Flcvebc3750-93-55 01:58:00* Test Item Value Reference Range Interpretation Comments Urine Ketones (test code = 33172-6) TRACE NEGATIVE [facility] Dlokfbrdfrkt1148-19-95 01:58:00* Test Item Value Reference Range Interpretation Comments Urine Urobilinogen (test code = 08331-8) 1 0.2-1 [facility] Xniripeuu2968-95-00 01:58:00* Test Item Value Reference Range Interpretation Comments Urine Bilirubin (test code = 1977-8) SMALL NEGATIVE [facility] Zsihl2122-39-21 01:58:00* Test Item Value Reference Range Interpretation Comments Urine Blood (test code = 99308-2) TRACE NEGATIVE [facility] SpringsProthrombin time (PT) in platelet poor plasma by coagulation bjahe8158-82-38 00:28:00* Test Item Value Reference Range Interpretation Comments Prothrombin Time (test code = 5902-2) 11.9 11.9-14.5 [facility] SpringsINR in Platelet poor plasma by Coagulation yyrrq4328-88-46 00:28:00* Test Item Value Reference Range Interpretation Comments Prothromb Time International Ratio (test code = 6301-6) 0.83 Oral Anticoagulant Therapy INR Values:1. Low Intensity Therapy 1.5 - 2.02 . Moderate Intensity Therapy 2.0 - 3.03. High Intensity Therapy(1) 2.5 - 3. 54. High Intensity Therapy(2) 3.0 - 4.05. Panic Value INR > 5.0 [facility] SpringsActivated partial thromboplastin time (aPTT) in platelet poor plasma by coagulation mcdof0396-94-85 00:28:00* Test Item Value Reference Range Interpretation Comments Activated Partial Thromboplast Time (test code = 21658-4) 22.8 23.8-35.5 [facility] SpringsUrine opiates screening btgo1794-38-38 00:28:00* Test Item Value Reference Range Interpretation Comments Urine Opiates Screen (test code = 87610-8) POSITIVE NEGATIVE ALL TESTS PERFORMED MANUALLY ON [employer] TOX/SEE TEST This test provides only a sc reen. Positive results should be repeated by a confirmatory test. PO SITIVE TCACHRISTUS [facility] SpringsBarbiturates screen, urine 2019-02-19 00:28:00* Test Item Value Reference Range Interpretation Comments Urine Barbiturates Screen (test code = 677739157) NEGATIVE NEGA TIVE [facility] SpringsUrine phencyclidine detection by screening qkqxmb3983-67-44 00:28:00* Test Item Value Reference Range Interpretation Comments Urine Phencyclidine Screen (test code = 30263-6) NEGATIVE NEGAT DAMIEN [facility] SpringsUrine amphetamines detection by screen method > 1000 ng/lI3354-43-76 00:28:00* Test Item Value Reference Range Interpretation Comments Urine Amphetamines Screen (test code = 09895-7) NEGATIVE NEGATI VE [facility] SpringsFluoroscopic procedure less than one hour cfrhgxrv7950-44-68 00:28:00* Test Item Value Reference Range Interpretation Comments Urine Methamphetamines Screen (test code = Urine Metha mphetamines Screen) NEGATIVE NEGATIVE [facility] SpringsUrine benzodiazepines detection by screening sgourm1738-61-33 00:28:00* Test Item Value Reference Range Interpretation Comments Urine Benzodiazepines Screen (test code = 70257-6) POSITIVE NEG ATIVE This test provides only a screen. Positive results should be repeated by a confi rmatory test.[facility] SpringsUrine cocaine measurement (mass/volume)2019-02-19 00:28:00* Test Item Value Reference Range Interpretation Comments Urine Cocaine Screen (test code = 3398-5) NEGATIVE NEGATIVE [facility] SpringsUrine cannabinoids detection by screening lqpktv9779-82-64 00:28:00* Test Item Value Reference Range Interpretation Comments Urine Cannabinoids Screen (test code = 28735-3) NEGATIVE NEGATI VE THESE RESULTS ARE FOR MEDICAL TREATMENT ONLYTHIS REPORT CONTAINS UNCONFIR MED SCREENING RESULTS*POSITIVE RESULTS WILL BE CONFIRMED BY REFERENCE LAB UPON R EQUEST CUT-OFFDRUG CLASS CONCENTRATION ng/mLAmphetamines 1000Methamphetamines 1000Cocaine 300Opiate 300Phencyc lidine 25Cannabinoid 50Barbiturates 300Benzodiazepine 300Methadone 300[facility]woodUrine methadone gjzcvj3264-74-53 00:28:00* Test Item Value Reference Range Interpretation Comments Urine Methadone Screen (test code = 16970-1) POSITIVE NEGATIVE This test provides only a screen. Positive results should be repeated by a confi rmatory test.THESE RESULTS ARE FOR MEDICAL TREATMENT ONLYTHIS REPORT CONT AINS UNCONFIRMED SCREENING RESULTS*POSITIVE RESULTS WILL BE CONFIRMED BY REFEREN CE LAB UPON REQUEST CUT-OFFDRUG CLASS CON CENTRATION ng/mLAmphetamines 1000Methamp hetamines 1000Cocaine Metabolite 300Opiate 300Phencyclidine 25Cannabinoid 50Barbiturates 300Benzodiazepine 300Methadone 30 0[facility] SpringsTransitional cells detection in urine sediment by light mciuladkci5948-09-76 00:28:00* Test Item Value Reference Range Interpretation Comments Urine Transitional Epithelial Cells (test code = 8249-5) FEW NONE [facility] SpringsCoarse granular casts detection in urine sediment by light rxrdnlvxgr5906-98-36 00:28:00* Test Item Value Reference Range Interpretation Comments Urine Coarse Granular Casts (test code = 79330-4) 1-5 >0 [facility]ererum or plasma creatine kinase measurement (enzymatic activity/volume)2019-02-19 00:28:00* Test Item Value Reference Range Interpretation Comments Creatine Kinase (test code = 2157-6) 17 29-168 [facility]ererum or plasma creatine kinase MB measurement (mass/volume)2019-02-19 00:28:00* Test Item Value Reference Range Interpretation Comments Creatine Kinase MB (test code = 43674-2) 0.60 0-5.0 [facility] SpringsTroponin I measurement by highly sensitive enzyme lutgdwttvyn2544-45-21 00:28:00* Test Item Value Reference Range Interpretation Comments Troponin I (test code = 91513-2) < 0.001 0-0.300 [facility] SpringsBedside Adytiyg8916-39-18 13:28:00* Test Item Value Reference Range Interpretation Comments Bedside Glucose (test code = 94144-2) 323 70-120 H Meter ID: [id number] CenterBlood Culture 2019-02-12 20:11:00* Test Item Value Reference Range Interpretation Comments Blood Culture (test code = 68971912) NO GROWTH AFTER 5 DAYS, FINAL REPORT [facility] Centerodium Tfanq3884-64-88 05:39:00* Test Item Value Reference Range Interpretation Comments Sodium Level (test code = 2951-2) 140 136-145 [facility] SpringsPotassium Dtdwj1886-11-12 05:39:00* Test Item Value Reference Range Interpretation Comments Potassium Level (test code = 2823-3) 4.3 3.5-5.1 [facility] SpringsChloride Jqoeg2331-33-85 05:39:00* Test Item Value Reference Range Interpretation Comments Chloride Level (test code = 2075-0) 104 98-107 [facility] SpringsCarbon Dioxide Pzzhf2978-56-08 05:39:00* Test Item Value Reference Range Interpretation Comments Carbon Dioxide Level (test code = 2028-9) 22 22-29 [facility] SpringsAnion Jhj1463-73-69 05:39:00* Test Item Value Reference Range Interpretation Comments Anion Gap (test code = 97403-2) 18.3 8-16 H [facility] SpringsBlood Urea Adggbahs8539-11-69 05:39:00* Test Item Value Reference Range Interpretation Comments Blood Urea Nitrogen (test code = 3094-0) 12 7-26 [facility] SpringsCreatinine2019-10-24 05:39:00* Test Item Value Reference Range Interpretation Comments Creatinine (test code = 2160-0) 0.76 0.57-1.11 [facility] SpringsBUN/Creatinine Cxuqf6946-83-01 05:39:00* Test Item Value Reference Range Interpretation Comments BUN/Creatinine Ratio (test code = 3097-3) 16 6-25 [facility] SpringsEstimat Glomerular Filtration Rate 2019-02-08 05:39:00* Test Item Value Reference Range Interpretation Comments Estimat Glomerular Filtration Rate (test code = 760581899) > 60 >60 Ranges were taken from the National Kidney Disease Education Program and the [facility] Kidney Foundation literature.Reference ranges:60 or greater: Bctrko06-40 ( for 3 consecutive months): Chronic kidney disease 15 or less: Kidney failureCHRISTUS Mother Frances Hospital – [facility] SpringsGlucose Epdsb3407-29-31 05:39:00* Test Item Value Reference Range Interpretation Comments Glucose Level (test code = GKJ7609) 183 74-118 H [facility] SpringsCalcium Ttcdb3997-01-46 05:39:00* Test Item Value Reference Range Interpretation Comments Calcium Level (test code = 02607-9) 9.1 8.4-10.2 [facility] SpringsPhosphorus Gqbpz1782-13-32 05:39:00* Test Item Value Reference Range Interpretation Comments Phosphorus Level (test code = TBA0847) 4.3 2.3-4.7 [facility] SpringsMagnesium Qizvo3719-50-07 05:39:00* Test Item Value Reference Range Interpretation Comments Magnesium Level (test code = 86350-5) 2.1 1.3-2.1 [facility] SpringsTotal Zzhwtwvbm5788-79-76 05:39:00* Test Item Value Reference Range Interpretation Comments Total Bilirubin (test code = 1975-2) 0.5 0.2-1.2 [facility] SpringsAspartate Amino Transf (AST/SGOT) 2019-02-08 05:39:00* Test Item Value Reference Range Interpretation Comments Aspartate Amino Transf (AST/SGOT) (test code = Aspartate Amino Transf (AST/SGOT)) 32 5-34 [facility] SpringsAlanine Aminotransferase (ALT/SGPT) 2019-02-08 05:39:00* Test Item Value Reference Range Interpretation Comments Alanine Aminotransferase (ALT/SGPT) (test code = 1742-6) 175 0-55 H [facility] SpringsTotal Bhieemk7079-96-32 05:39:00* Test Item Value Reference Range Interpretation Comments Total Protein (test code = 2885-2) 6.3 6.5-8.1 L [facility] SpringsAlbumin2019-10-24 05:39:00* Test Item Value Reference Range Interpretation Comments Albumin (test code = 1751-7) 3.1 3.5-5.0 L [facility] SpringsGlobulin2019-10-24 05:39:00* Test Item Value Reference Range Interpretation Comments Globulin (test code = 56636-2) 3.2 2.3-3.5 [facility] SpringsAlbumin/Globulin Rebnm9111-62-25 05:39:00 * Test Item Value Reference Range Interpretation Comments Albumin/Globulin Ratio (test code = 1759-0) 1.0 0.8-2.0 [facility] SpringsAlkaline Wwztocfempe9707-78-21 05:39:00* Test Item Value Reference Range Interpretation Comments Alkaline Phosphatase (test code = 6768-6) 90 40-150 [facility] SpringsPhosphorus Zhvhh0590-55-66 05:39:00* Test Item Value Reference Range Interpretation Comments Phosphorus Level (test code = WGD6315) 4.3 2.3-4.7 [facility] SpringsWhite Blood Sqtgc7431-44-36 05:11:00* Test Item Value Reference Range Interpretation Comments White Blood Count (test code = 6690-2) 16.37 4.8-10.8 H [facility] SpringsRed Blood Lssvq1695-43-06 05:11:00* Test Item Value Reference Range Interpretation Comments Red Blood Count (test code = 789-8) 3.58 3.6-5.1 L [facility] SpringsHemoglobin2019-10-24 05:11:00* Test Item Value Reference Range Interpretation Comments Hemoglobin (test code = 19753-9) 11.6 12.0-16.0 L [facility] SpringsHematocrit2019-10-24 05:11:00* Test Item Value Reference Range Interpretation Comments Hematocrit (test code = 4544-3) 36.3 34.2-44.1 [facility] SpringsMean Corpuscular Nzxmnk7816-23-99 05:11:00* Test Item Value Reference Range Interpretation Comments Mean Corpuscular Volume (test code = 787-2) 101.4 81-99 H [facility] SpringsMean Corpuscular Grujzeeonr5862-13-37 05:11:00* Test Item Value Reference Range Interpretation Comments Mean Corpuscular Hemoglobin (test code = 785-6) 32.4 28-32 H [facility] SpringsMean Corpuscular Hemoglobin Concent 2019-02-08 05:11:00* Test Item Value Reference Range Interpretation Comments Mean Corpuscular Hemoglobin Concent (test code = 786-4) 32.0 31-35 [facility] SpringsRed Cell Distribution Lwpiy8326-19-72 05:11:00* Test Item Value Reference Range Interpretation Comments Red Cell Distribution Width (test code = 08493-4) 14.6 11.7 -14.4 H [facility] SpringsPlatelet Jrmwl6335-21-37 05:11:00* Test Item Value Reference Range Interpretation Comments Platelet Count (test code = 777-3) 394 140-360 H [facility] SpringsNeutrophils (%) (Auto)2019-02-08 05:11:00 * Test Item Value Reference Range Interpretation Comments Neutrophils (%) (Auto) (test code = 24306-2) 75.7 38.7-80.0 [facility] SpringsLymphocytes (%) (Auto)2019-02-08 05:11:00 * Test Item Value Reference Range Interpretation Comments Lymphocytes (%) (Auto) (test code = 736-9) 15.1 18.0-39.1 L [facility] SpringsMonocytes (%) (Auto)2019-02-08 05:11:00* Test Item Value Reference Range Interpretation Comments Monocytes (%) (Auto) (test code = 5905-5) 7.3 4.4-11.3 [facility] SpringsEosinophils (%) (Auto)2019-02-08 05:11:00 * Test Item Value Reference Range Interpretation Comments Eosinophils (%) (Auto) (test code = 713-8) 0.6 0.0-6.0 [facility] SpringsBasophils (%) (Auto)2019-02-08 05:11:00* Test Item Value Reference Range Interpretation Comments Basophils (%) (Auto) (test code = 706-2) 0.4 0.0-1.0 [facility] SpringsIM GRANULOCYTES %2019-02-08 05:11:00* Test Item Value Reference Range Interpretation Comments IM GRANULOCYTES % (test code = IM GRANULOCYTES %) 0.9 0.0- 1.0 [facility] SpringsNeutrophils # (Auto)2019-02-08 05:11:00* Test Item Value Reference Range Interpretation Comments Neutrophils # (Auto) (test code = 751-8) 12.4 2.1-6.9 H [facility] SpringsLymphocytes # (Auto)2019-02-08 05:11:00* Test Item Value Reference Range Interpretation Comments Lymphocytes # (Auto) (test code = 75127-6) 2.5 1.0-3.2 [facility] SpringsMonocytes # (Auto)2019-02-08 05:11:00* Test Item Value Reference Range Interpretation Comments Monocytes # (Auto) (test code = 742-7) 1.2 0.2-0.8 H [facility] SpringsEosinophils # (Auto)2019-02-08 05:11:00* Test Item Value Reference Range Interpretation Comments Eosinophils # (Auto) (test code = 711-2) 0.1 0.0-0.4 [facility] SpringsBasophils # (Auto)2019-02-08 05:11:00* Test Item Value Reference Range Interpretation Comments Basophils # (Auto) (test code = 704-7) 0.1 0.0-0.1 [facility] SpringsAbsolute Immature Granulocyte (auto 2019-02-08 05:11:00* Test Item Value Reference Range Interpretation Comments Absolute Immature Granulocyte (auto (anita t code = Absolute Immature Granulocyte (auto) 0.15 0-0.1 H [facility] SpringsPhosphorus fhmsvvlaing7745-08-26 04:45:00 * Test Item Value Reference Range Interpretation Comments Phosphorus Level (test code = XBN0655) 4.3 2.3-4.7 [facility] SpringsUrine [id number] 21:35:00* Test Item Value Reference Range Interpretation Comments Urine WBC (test code = 5821-4) 0-5 0-5 [facility] SpringsUrine ZUM7687-11-09 21:35:00* Test Item Value Reference Range Interpretation Comments Urine RBC (test code = 45716-2) NONE 0-5 [facility] SpringsUrine Ltpsdfnt4632-14-85 21:35:00* Test Item Value Reference Range Interpretation Comments Urine Bacteria (test code = 50817-1) MODERATE NONE H [facility] SpringsUrine Epithelial Xesol1508-24-96 21:35:00 * Test Item Value Reference Range Interpretation Comments Urine Epithelial Cells (test code = 91324-7) NONE NONE [facility] SpringsUrine Lcefu5883-13-94 21:19:00* Test Item Value Reference Range Interpretation Comments Urine Color (test code = 5778-6) YELLOW YELLOW [facility] SpringsUrine Vvbmnun4934-16-20 21:19:00* Test Item Value Reference Range Interpretation Comments Urine Clarity (test code = 56970-7) SL CLOUDY CLEAR [facility] SpringsUrine Specific Tlqxjhh8582-71-00 21:19:00 * Test Item Value Reference Range Interpretation Comments Urine Specific Mar[place] (test code = 5811-5) >=1.030 1.010-1.02 5 [facility] SpringsUrine hZ0631-13-06 21:19:00* Test Item Value Reference Range Interpretation Comments Urine pH (test code = 13504-2) 6 5-7 [facility] SpringsUrine Leukocyte Wbcvxhvt7816-43-21 21:19:00* Test Item Value Reference Range Interpretation Comments Urine Leukocyte Esterase (test code = 99590-0) NEGATIVE NEGATIV E [facility] SpringsUrine Cbzwilo8556-11-00 21:19:00* Test Item Value Reference Range Interpretation Comments Urine Nitrite (test code = 62796-8) NEGATIVE NEGATIVE [facility] SpringsUrine Nfnbyah1619-53-86 21:19:00* Test Item Value Reference Range Interpretation Comments Urine Protein (test code = 28367-5) NEGATIVE NEGATIVE [facility] SpringsUrine Glucose (UA)2019-02-07 21:19:00* Test Item Value Reference Range Interpretation Comments Urine Glucose (UA) (test code = 74340-1) NEGATIVE NEGATIVE [facility] SpringsUrine Ppefyte4780-61-88 21:19:00* Test Item Value Reference Range Interpretation Comments Urine Ketones (test code = 24503-3) NEGATIVE NEGATIVE [facility] Nlwmcwnhotgr7219-36-11 21:19:00* Test Item Value Reference Range Interpretation Comments Urine Urobilinogen (test code = 35097-8) 0.2 0.2-1 [facility] SpringsUrine Xgkmzkbku0326-11-99 21:19:00* Test Item Value Reference Range Interpretation Comments Urine Bilirubin (test code = 1977-8) NEGATIVE NEGATIVE [facility] SpringsUrine Tfafw5977-28-13 21:19:00* Test Item Value Reference Range Interpretation Comments Urine Blood (test code = 33878-1) NEGATIVE NEGATIVE [facility] SpringsUrine Mpck2640-89-23 21:18:00* Test Item Value Reference Range Interpretation Comments Urine Test (test code = 2106-3) NEGATIVE NEGATIVE [facility] Zdlz5547-08-82 21:18:00* Test Item Value Reference Range Interpretation Comments Urine Test (test code = 2106-3) NEGATIVE NEGATIVE [facility] SpringsUrine human chorionic gonadotropin (hCG) igfexnava3570-05-91 20:45:00* Test Item Value Reference Range Interpretation Comments Urine Test (test code = 2106-3) NEGATIVE NEGATIVE [facility] SpringsLactic Acid Iepkp1711-89-45 20:04:00* Test Item Value Reference Range Interpretation Comments Lactic Acid Level (test code = Lactic Acid Level) 1.6 0.5- 2.0 [facility] SpringsCHES SINGLE (PORTABLE)2019-02-07 19:03:00 [place] [id number] Patient Name: ROSA ISELA BENITEZ MR #: [id number] : 1970 Age/Sex: 49/F Req #: [id number] Adm Physician: Ordered by: ESTER PASTOR MD, MD Report #: [id number] Location: ER Room/Bed: Procedure: 1023-0 072 DX/CHEST [...] 02/07/191902 COPY TO: ESTER PASTOR B-Type Natriuretic Txvtckn9102-21-58 18:26:00* Test Item Value Reference Range Interpretation Comments B-Type Natriuretic Peptide (test code = 15469-0) 58.7 0-100 [facility] SpringsCreatine Kinase [id number] 18:26:00* Test Item Value Reference Range Interpretation Comments Creatine Kinase MB (test code = 35932-3) 3.70 0-5.0 [facility] SpringsTroponin [id number] 18:26:00* Test Item Value Reference Range Interpretation Comments Troponin I (test code = [place]3369) 0.011 0-0.300 [facility] SpringsB-Type Natriuretic Luurzne2848-74-51 18:26:00* Test Item Value Reference Range Interpretation Comments B-Type Natriuretic Peptide (test code = 69532-5) 58.7 0-100 [facility] SpringsCreatine Kfpmps2002-71-35 18:16:00* Test Item Value Reference Range Interpretation Comments Creatine Kinase (test code = 2157-6) 117 29-168 [facility] SpringsLipase2019-10-23 18:16:00* Test Item Value Reference Range Interpretation Comments Lipase (test code = 3040-3) [facility] SpringsLipase2019-10-23 18:16:00* Test Item Value Reference Range Interpretation Comments Lipase (test code = 3040-3) [facility] SpringsProthrombin Jsoo8488-05-98 18:05:00* Test Item Value Reference Range Interpretation Comments Prothrombin Time (test code = 5902-2) 12.4 11.9-14.5 [facility] SpringsProthromb Time International Ratio 2019-02-07 18:05:00* Test Item Value Reference Range Interpretation Comments Prothromb Time International Ratio (test code = 6301-6) 0.88 Oral Anticoagulant Therapy INR Values:1. Low Intensity Therapy 1.5 - 2.02 . Moderate Intensity Therapy 2.0 - 3.03. High Intensity Therapy(1) 2.5 - 3. 54. High Intensity Therapy(2) 3.0 - 4.05. Panic Value INR > 5.0 [facility] SpringsActivated Partial Thromboplast Time 2019-02-07 18:05:00* Test Item Value Reference Range Interpretation Comments Activated Partial Thromboplast Time (test code = 93467-2) 24.1 23.8-35.5 [facility] SpringsBNP Sna-aAcm8639-16-23 15:15:00* Test Item Value Reference Range Interpretation Comments B-Type Natriuretic Peptide (test code = 47155-3) 58.7 0-100 [facility] Centererum or plasma lipase measurement (enzymatic activity/volume)2019-02-07 15:15:00* Test Item Value Reference Range Interpretation Comments Lipase (test code = 3040-3) 22 8-78 [facility] SpringsWhite Blood Nxviq4750-46-44 06:17:00* Test Item Value Reference Range Interpretation Comments White Blood Count (test code = 6690-2) 15.04 4.8-10.8 H [facility] SpringsRed Blood Uzped3355-96-81 06:17:00* Test Item Value Reference Range Interpretation Comments Red Blood Count (test code = 789-8) 3.84 3.6-5.1 [facility] SpringsHemoglobin2019-10-14 06:17:00* Test Item Value Reference Range Interpretation Comments Hemoglobin (test code = 90263-7) 12.6 12.0-16.0 [facility] SpringsHematocrit2019-10-14 06:17:00* Test Item Value Reference Range Interpretation Comments Hematocrit (test code = 4544-3) 37.6 34.2-44.1 [facility] SpringsMean Corpuscular Jzxyas0348-27-18 06:17:00* Test Item Value Reference Range Interpretation Comments Mean Corpuscular Volume (test code = 787-2) 97.9 81-99 [facility] SpringsMean Corpuscular Tqafuegklk1086-24-88 06:17:00* Test Item Value Reference Range Interpretation Comments Mean Corpuscular Hemoglobin (test code = 785-6) 32.8 28-32 H [facility] SpringsMean Corpuscular Hemoglobin Concent 2019-01-29 06:17:00* Test Item Value Reference Range Interpretation Comments Mean Corpuscular Hemoglobin Concent (test code = 786-4) 33.5 31-35 [facility] SpringsRed Cell Distribution Soeat1801-19-50 06:17:00* Test Item Value Reference Range Interpretation Comments Red Cell Distribution Width (test code = 08126-2) 13.6 11.7 -14.4 [facility] SpringsPlatelet Vmeqx5447-37-05 06:17:00* Test Item Value Reference Range Interpretation Comments Platelet Count (test code = 777-3) 445 140-360 H [facility] SpringsNeutrophils (%) (Auto)2019-01-29 06:17:00 * Test Item Value Reference Range Interpretation Comments Neutrophils (%) (Auto) (test code = 61415-3) 71.6 38.7-80.0 [facility] SpringsLymphocytes (%) (Auto)2019-01-29 06:17:00 * Test Item Value Reference Range Interpretation Comments Lymphocytes (%) (Auto) (test code = 736-9) 20.3 18.0-39.1 [facility] SpringsMonocytes (%) (Auto)2019-01-29 06:17:00* Test Item Value Reference Range Interpretation Comments Monocytes (%) (Auto) (test code = 5905-5) 6.1 4.4-11.3 [facility] SpringsEosinophils (%) (Auto)2019-01-29 06:17:00 * Test Item Value Reference Range Interpretation Comments Eosinophils (%) (Auto) (test code = 713-8) 0.4 0.0-6.0 [facility] SpringsBasophils (%) (Auto)2019-01-29 06:17:00* Test Item Value Reference Range Interpretation Comments Basophils (%) (Auto) (test code = 706-2) 0.4 0.0-1.0 [facility] SpringsIM GRANULOCYTES %2019-01-29 06:17:00* Test Item Value Reference Range Interpretation Comments IM GRANULOCYTES % (test code = IM GRANULOCYTES %) 1.2 0.0- 1.0 H [facility] SpringsNeutrophils # (Auto)2019-01-29 06:17:00* Test Item Value Reference Range Interpretation Comments Neutrophils # (Auto) (test code = 751-8) 10.8 2.1-6.9 H [facility] SpringsLymphocytes # (Auto)2019-01-29 06:17:00* Test Item Value Reference Range Interpretation Comments Lymphocytes # (Auto) (test code = 43392-3) 3.1 1.0-3.2 [facility] SpringsMonocytes # (Auto)2019-01-29 06:17:00* Test Item Value Reference Range Interpretation Comments Monocytes # (Auto) (test code = 742-7) 0.9 0.2-0.8 H [facility] SpringsEosinophils # (Auto)2019-01-29 06:17:00* Test Item Value Reference Range Interpretation Comments Eosinophils # (Auto) (test code = 711-2) 0.1 0.0-0.4 [facility] SpringsBasophils # (Auto)2019-01-29 06:17:00* Test Item Value Reference Range Interpretation Comments Basophils # (Auto) (test code = 704-7) 0.1 0.0-0.1 [facility] SpringsAbsolute Immature Granulocyte (auto 2019-01-29 06:17:00* Test Item Value Reference Range Interpretation Comments Absolute Immature Granulocyte (auto (anita t code = Absolute Immature Granulocyte (auto) 0.18 0-0.1 H [facility] Centerodium Mzagg3077-89-50 06:12:00* Test Item Value Reference Range Interpretation Comments Sodium Level (test code = 2951-2) 138 136-145 [facility] SpringsPotassium Okajw2735-20-51 06:12:00* Test Item Value Reference Range Interpretation Comments Potassium Level (test code = 2823-3) 3.5 3.5-5.1 [facility] SpringsChloride Fdjmz3263-62-75 06:12:00* Test Item Value Reference Range Interpretation Comments Chloride Level (test code = 2075-0) 102 98-107 [facility] SpringsCarbon Dioxide Gctwc8832-33-87 06:12:00* Test Item Value Reference Range Interpretation Comments Carbon Dioxide Level (test code = 2028-9) 27 22-29 [facility] SpringsAnion Alz6115-76-64 06:12:00* Test Item Value Reference Range Interpretation Comments Anion Gap (test code = 53530-1) 12.5 8-16 [facility] SpringsBlood Urea Xyohmgxe4866-04-80 06:12:00* Test Item Value Reference Range Interpretation Comments Blood Urea Nitrogen (test code = 3094-0) 13 7-26 [facility] SpringsCreatinine2019-10-14 06:12:00* Test Item Value Reference Range Interpretation Comments Creatinine (test code = 2160-0) 0.97 0.57-1.11 [facility] SpringsBUN/Creatinine Fskqc5155-15-93 06:12:00* Test Item Value Reference Range Interpretation Comments BUN/Creatinine Ratio (test code = 3097-3) 13 6- [facility] SpringsEstimat Glomerular Filtration Rate 2019-01-29 06:12:00* Test Item Value Reference Range Interpretation Comments Estimat Glomerular Filtration Rate (test code = 432041539) > 60 >60 Ranges were taken from the National Kidney Disease Education Program and the [facility] Kidney Foundation literature.Reference ranges:60 or greater: Pwgcug46-40 ( for 3 consecutive months): Chronic kidney disease 15 or less: Kidney failureCHRISTUS Mother [facility] – [facility] SpringsGlucose Gniui8850-92-08 06:12:00* Test Item Value Reference Range Interpretation Comments Glucose Level (test code = CGO0714) 176 74-118 H [facility] SpringsCalcium Yxjer3303-17-30 06:12:00* Test Item Value Reference Range Interpretation Comments Calcium Level (test code = 79280-3) 9.1 8.4-10.2 [facility] SpringsTotal Dalxogloz3806-45-59 06:12:00* Test Item Value Reference Range Interpretation Comments Total Bilirubin (test code = 1975-2) 0.3 0.2-1.2 [facility] SpringsAspartate Amino Transf (AST/SGOT) 2019-01-29 06:12:00* Test Item Value Reference Range Interpretation Comments Aspartate Amino Transf (AST/SGOT) (test code = Aspartate Amino Transf (AST/SGOT)) 33 5-34 [facility] SpringsAlanine Aminotransferase (ALT/SGPT) 2019-01-29 06:12:00* Test Item Value Reference Range Interpretation Comments Alanine Aminotransferase (ALT/SGPT) (test code = 1742-6) 34 0-55 [facility] SpringsTotal Vqxyfsb5152-58-70 06:12:00* Test Item Value Reference Range Interpretation Comments Total Protein (test code = 2885-2) 6.2 6.5-8.1 L [facility] SpringsAlbumin2019-10-14 06:12:00* Test Item Value Reference Range Interpretation Comments Albumin (test code = 1751-7) 3.0 3.5-5.0 L [facility] SpringsGlobulin2019-10-14 06:12:00* Test Item Value Reference Range Interpretation Comments Globulin (test code = 64091-8) 3.2 2.3-3.5 [facility] SpringsAlbumin/Globulin Lomtx5297-89-38 06:12:00 * Test Item Value Reference Range Interpretation Comments Albumin/Globulin Ratio (test code = 1759-0) 0.9 0.8-2.0 [facility] SpringsAlkaline Zfwtjfbpjxu0482-71-89 06:12:00* Test Item Value Reference Range Interpretation Comments Alkaline Phosphatase (test code = 6768-6) 74 40-150 [facility] SpringsBedside Lyssgfw9427-49-70 21:06:00* Test Item Value Reference Range Interpretation Comments Bedside Glucose (test code = 55304-4) 181 70-120 H Meter ID: [id number] [facility] – Medical CenterMagnesium Level 2019-01-28 06:36:00* Test Item Value Reference Range Interpretation Comments Magnesium Level (test code = 44232-2) 2.2 1.3-2.1 H [facility] SpringsCHEST 2 NIBFO0566-87-70 10:04:00 [facility] [address] [address] Patient Name: ROSA ISELA BENITEZ MR #: [id number] : Age/Sex: 48/F Req #: [id number] Adm Physician: Ordered by: SHEY CORONEL MD Report #: [id number] Location: ER Room/Bed: Procedure: 1012-0 009 DX/CHEST [...] COPY TO: SHEY CORONEL MD CT ABDOMEN/PELVIS NX0248-35-66 08:39:[address] [address] Patient Name: ROSA ISELA BENITEZ MR #: [id number] : 1970 Age/Sex: 48/F [facility] #: [id number] [facility] Physician: Ordered by: SHEY CORONEL MD Report #: [id number] Location: ER Room/Bed: Procedure: 1012-[address]/CT [...] COPY TO: SHEY CORONEL MD Creatine Kinase UX1248-98-73 08:23:00* Test Item Value Reference Range Interpretation Comments Creatine Kinase MB (test code = 60076-7) 4.10 0-5.0 [facility] SpringsTroponin I6858-10-56 08:23:00* Test Item Value Reference Range Interpretation Comments Troponin I (test code = KTE6375) 0.014 0-0.300 [facility] SpringsCreatine Fjavwd4876-14-96 08:18:00* Test Item Value Reference Range Interpretation Comments Creatine Kinase (test code = 2157-6) 76 29-168 [facility] SpringsUrine ZSL1670-60-29 08:11:00* Test Item Value Reference Range Interpretation Comments Urine WBC (test code = 5821-4) 0-5 0-5 [facility] SpringsUrine XZR7839-79-34 08:11:00* Test Item Value Reference Range Interpretation Comments Urine RBC (test code = 23962-7) 0-5 0-5 [facility] SpringsUrine Dcklbijl3153-68-79 08:11:00* Test Item Value Reference Range Interpretation Comments Urine Bacteria (test code = 45629-2) RARE NONE [facility] SpringsUrine Epithelial Jfdgr9668-41-11 08:11:00 * Test Item Value Reference Range Interpretation Comments Urine Epithelial Cells (test code = 95641-3) MODERATE NONE [facility] SpringsUrine Ldkcx7005-11-40 08:01:00* Test Item Value Reference Range Interpretation Comments Urine Color (test code = 5778-6) YELLOW YELLOW [facility] SpringsUrine Diiatur5269-65-04 08:01:00* Test Item Value Reference Range Interpretation Comments Urine Clarity (test code = 82178-4) CLEAR CLEAR [facility] Specific Wwmpvqr3918-55-97 08:01:00 * Test Item Value Reference Range Interpretation Comments Urine Specific Marble (test code = 5811-5) 1.010 1.010-1.02 5 [facility] SpringsUrine iY6605-22-11 08:01:00* Test Item Value Reference Range Interpretation Comments Urine pH (test code = 84268-2) 6.5 5-7 [facility] Leukocyte Tgicljmc8844-59-79 08:01:00* Test Item Value Reference Range Interpretation Comments Urine Leukocyte Esterase (test code = 99486-4) NEGATIVE NEGATIV E [facility] Bjzdtqe3018-46-71 08:01:00* Test Item Value Reference Range Interpretation Comments Urine Nitrite (test code = 35550-3) NEGATIVE NEGATIVE [facility] Ujoaxui3301-74-35 08:01:00* Test Item Value Reference Range Interpretation Comments Urine Protein (test code = 88224-5) NEGATIVE NEGATIVE [facility] Glucose (UA)2019-01-27 08:01:00* Test Item Value Reference Range Interpretation Comments Urine Glucose (UA) (test code = 32781-8) 2+ NEGATIVE H [facility] Uoxgjce5064-77-63 08:01:00* Test Item Value Reference Range Interpretation Comments Urine Ketones (test code = 81005-6) NEGATIVE NEGATIVE [facility] Qxdqchdgyxhp8045-47-34 08:01:00* Test Item Value Reference Range Interpretation Comments Urine Urobilinogen (test code = 91244-5) 0.2 0.2-1 [facility] Dltcuwxkv0192-45-75 08:01:00* Test Item Value Reference Range Interpretation Comments Urine Bilirubin (test code = 1977-8) NEGATIVE NEGATIVE [facility] Fszut8201-25-17 08:01:00* Test Item Value Reference Range Interpretation Comments Urine Blood (test code = 62488-2) NEGATIVE NEGATIVE [facility] SpringsBedside Dgcdgyg2929-11-51 11:45:00* Test Item Value Reference Range Interpretation Comments Bedside Glucose (test code = 03278-5) 108 70-120 Meter ID: [id number] Army Medical Centerodium Level 2018-11-29 06:48:00* Test Item Value Reference Range Interpretation Comments Sodium Level (test code = 2951-2) 134 136-145 L [facility] SpringsPotassium Ngqxv5721-91-18 06:48:00* Test Item Value Reference Range Interpretation Comments Potassium Level (test code = 2823-3) 3.8 3.5-5.1 [facility] SpringsChloride Ksxvx9750-76-22 06:48:00* Test Item Value Reference Range Interpretation Comments Chloride Level (test code = 2075-0) 101 98-107 [facility] SpringsCarbon Dioxide Tvier8917-00-32 06:48:00* Test Item Value Reference Range Interpretation Comments Carbon Dioxide Level (test code = 2028-9) 23 22-29 [facility] SpringsAnion Szd0181-61-38 06:48:00* Test Item Value Reference Range Interpretation Comments Anion Gap (test code = 13673-9) 13.8 8-16 [facility] SpringsBlood Urea Peahsbuy9294-39-73 06:48:00* Test Item Value Reference Range Interpretation Comments Blood Urea Nitrogen (test code = 3094-0) 8 7-26 [facility] SpringsCreatinine2019-08-14 06:48:00* Test Item Value Reference Range Interpretation Comments Creatinine (test code = 2160-0) 0.83 0.57-1.11 [facility] SpringsBUN/Creatinine Hnpaj9049-53-79 06:48:00* Test Item Value Reference Range Interpretation Comments BUN/Creatinine Ratio (test code = 3097-3) 10 6-25 [facility] SpringsEstimat Glomerular Filtration Rate 2018-11-29 06:48:00* Test Item Value Reference Range Interpretation Comments Estimat Glomerular Filtration Rate (test code = 597951976) > 60 >60 Ranges were taken from the National Kidney Disease Education Program and the [facility] Kidney Foundation literature.Reference ranges:60 or greater: Zylvvq93-54 ( for 3 consecutive months): Chronic kidney disease 15 or less: Kidney failureCHRISTUS [facility] – [facility] SpringsGlucose Adfmc0788-62-44 06:48:00* Test Item Value Reference Range Interpretation Comments Glucose Level (test code = YIS0373) 128 74-118 H [facility] SpringsCalcium Uwwiu4320-16-34 06:48:00* Test Item Value Reference Range Interpretation Comments Calcium Level (test code = 79783-2) 9.2 8.4-10.2 [facility] SpringsTotal Alpsdilsj3387-26-69 06:48:00* Test Item Value Reference Range Interpretation Comments Total Bilirubin (test code = 1975-2) 0.4 0.2-1.2 [facility] SpringsAspartate Amino Transf (AST/SGOT) 2018-11-29 06:48:00* Test Item Value Reference Range Interpretation Comments Aspartate Amino Transf (AST/SGOT) (test code = Aspartate Amino Transf (AST/SGOT)) 42 5-34 H [facility] SpringsAlanine Aminotransferase (ALT/SGPT) 2018-11-29 06:48:00* Test Item Value Reference Range Interpretation Comments Alanine Aminotransferase (ALT/SGPT) (test code = 1742-6) 76 0-55 H [facility] SpringsTotal Zgxzupe8808-53-80 06:48:00* Test Item Value Reference Range Interpretation Comments Total Protein (test code = 2885-2) 6.9 6.5-8.1 [facility] SpringsAlbumin2019-08-14 06:48:00* Test Item Value Reference Range Interpretation Comments Albumin (test code = 1751-7) 3.3 3.5-5.0 L [facility] SpringsGlobulin2019-08-14 06:48:00* Test Item Value Reference Range Interpretation Comments Globulin (test code = 15561-0) 3.6 2.3-3.5 H [facility] SpringsAlbumin/Globulin Wfgau3786-42-39 06:48:00 * Test Item Value Reference Range Interpretation Comments Albumin/Globulin Ratio (test code = 1759-0) 0.9 0.8-2.0 [facility] SpringsAlkaline Hwvkljiunav3041-03-12 06:48:00* Test Item Value Reference Range Interpretation Comments Alkaline Phosphatase (test code = 6768-6) 324 40-150 H [facility] SpringsWhite Blood Eabot0809-87-51 06:15:00* Test Item Value Reference Range Interpretation Comments White Blood Count (test code = 6690-2) 13.02 4.8-10.8 H [facility] SpringsRed Blood Iwgca6383-29-59 06:15:00* Test Item Value Reference Range Interpretation Comments Red Blood Count (test code = 789-8) 4.28 3.6-5.1 [facility] SpringsHemoglobin2019-08-14 06:15:00* Test Item Value Reference Range Interpretation Comments Hemoglobin (test code = 55519-4) 14.8 12.0-16.0 [facility] SpringsHematocrit2019-08-14 06:15:00* Test Item Value Reference Range Interpretation Comments Hematocrit (test code = 4544-3) 46.0 34.2-44.1 H [facility] SpringsMean Corpuscular Excbhl8278-16-61 06:15:00* Test Item Value Reference Range Interpretation Comments Mean Corpuscular Volume (test code = 787-2) 107.5 81-99 H [facility] SpringsMean Corpuscular Mywnoosgrb0359-72-84 06:15:00* Test Item Value Reference Range Interpretation Comments Mean Corpuscular Hemoglobin (test code = 785-6) 34.6 28-32 H [facility] SpringsMean Corpuscular Hemoglobin Concent 2018-11-29 06:15:00* Test Item Value Reference Range Interpretation Comments Mean Corpuscular Hemoglobin Concent (test code = 786-4) 32.2 31-35 [facility] SpringsRed Cell Distribution Idqnj2754-91-49 06:15:00* Test Item Value Reference Range Interpretation Comments Red Cell Distribution Width (test code = 48823-4) 14.1 11.7 -14.4 [facility] SpringsPlatelet Uiffc8666-58-65 06:15:00* Test Item Value Reference Range Interpretation Comments Platelet Count (test code = 777-3) 359 140-360 [facility] SpringsNeutrophils (%) (Auto)2018-11-29 06:15:00 * Test Item Value Reference Range Interpretation Comments Neutrophils (%) (Auto) (test code = 30604-0) 64.4 38.7-80.0 [facility] SpringsLymphocytes (%) (Auto)2018-11-29 06:15:00 * Test Item Value Reference Range Interpretation Comments Lymphocytes (%) (Auto) (test code = 736-9) 20.7 18.0-39.1 [facility] SpringsMonocytes (%) (Auto)2018-11-29 06:15:00* Test Item Value Reference Range Interpretation Comments Monocytes (%) (Auto) (test code = 5905-5) 8.8 4.4-11.3 [facility] SpringsEosinophils (%) (Auto)2018-11-29 06:15:00 * Test Item Value Reference Range Interpretation Comments Eosinophils (%) (Auto) (test code = 713-8) 3.1 0.0-6.0 [facility] SpringsBasophils (%) (Auto)2018-11-29 06:15:00* Test Item Value Reference Range Interpretation Comments Basophils (%) (Auto) (test code = 706-2) 1.2 0.0-1.0 H [facility] SpringsIM GRANULOCYTES %2018-11-29 06:15:00* Test Item Value Reference Range Interpretation Comments IM GRANULOCYTES % (test code = IM GRANULOCYTES %) 1.8 0.0- 1.0 H [facility] SpringsNeutrophils # (Auto)2018-11-29 06:15:00* Test Item Value Reference Range Interpretation Comments Neutrophils # (Auto) (test code = 751-8) 8.4 2.1-6.9 H [facility] SpringsLymphocytes # (Auto)2018-11-29 06:15:00* Test Item Value Reference Range Interpretation Comments Lymphocytes # (Auto) (test code = 25696-1) 2.7 1.0-3.2 [facility] SpringsMonocytes # (Auto)2018-11-29 06:15:00* Test Item Value Reference Range Interpretation Comments Monocytes # (Auto) (test code = 742-7) 1.2 0.2-0.8 H [facility] SpringsEosinophils # (Auto)2018-11-29 06:15:00* Test Item Value Reference Range Interpretation Comments Eosinophils # (Auto) (test code = 711-2) 0.4 0.0-0.4 [facility] SpringsBasophils # (Auto)2018-11-29 06:15:00* Test Item Value Reference Range Interpretation Comments Basophils # (Auto) (test code = 704-7) 0.2 0.0-0.1 H [facility] SpringsAbsolute Immature Granulocyte (auto 2018-11-29 06:15:00* Test Item Value Reference Range Interpretation Comments Absolute Immature Granulocyte (auto (anita t code = Absolute Immature Granulocyte (auto) 0.24 0-0.1 H [facility] SpringsUS EXTREMITY GONZALES DUU-MTY7603-47-09 16:58:00 [place] [address] Patient Name: ROSA ISELA BENITEZ MR #: [id number] : 1970 Age/Sex: 48/F Req #: [id number] Adm Physician: PARMINDER NARVAEZ MD Ordered by: KATIE BOWEN MD Report #: [id number] Location: MED/SURG2 Room/Bed: [facility] Procedure: [id number] US/US EXTREMITY GONZALES NON-VAS Exam Date: 11/24/18 [...] Interpretation Comments Blood Culture (test code = 31036354) NO GROWTH AFTER 5 DAYS, FINAL REPORT [facility] SpringsBlood Jhearnh2392-94-01 19:49:00* Test Item Value Reference Range Interpretation Comments Blood Culture (test code = 35946410) NO GROWTH AFTER 5 DAYS, FINAL REPORT [facility] SpringsUS KHSSC3648-78-95 08:05:00 [place] [address] Patient Name: ROSA ISELA BENITEZ MR #: [id number] : Age/Sex: 48/F Req #: [id number] Adm Physician: PARMINDER NARVAEZ MD Ordered by: PARMINDER NARVAEZ MD Report #: [id number] Location: MED/SURG2 Room/Bed: [facility] Procedure: [id number] US/US LIVER Exam Date: 11/21/18 Exam Time: [...] 8 COPY TO: JING NARVAEZ MD Magnesium Rlqis0536-43-08 06:02:00* Test Item Value Reference Range Interpretation Comments Magnesium Level (test code = 73011-3) 2.1 1.3-2.1 [facility] XRAY LINE KNJBJJPVM5468-10-56 17:01:00 [place] [address] [place] [address] Patient Name: ROSA ISELA BENITEZ MR #: [id number] : 1970 Age/Sex: 48/F Req #: [id number] Adm Physician: PARMINDER NARVAEZ MD Ordered by: PARMINDER NARVAEZ MD Report #: [id number] Location: MED/SURG2 Room/Bed: [facility] Procedure: [id number] DX/CHEST XRAY LINE PLACEMENT Exam Date: 11/18/18 [...] 5:02 PM Dictated By: ZURI OTTO MD [facility] Signed By: ZURI OTTO MD on 11/18/181701 Transcribed By: BRENDON on 1701 COPY TO: PARMINDER NARVAEZ MD CT FOOT RIGHT SC1043-70-25 20:35:00 [place] [address] Patient Name: ROSA ISELA BENITEZ MR #: [id number] : 1970 Age/Sex: 48/F Req #: [id number] Adm Physician: Ordered by: DIANNE BUSH MD Report #: [id number] Location: ER Room/Bed: Procedure: CT/CT FOOT RIGHT [...] COPY TO: DIANNE BUSH MD Lactic Acid Zqdho7113-55-01 19:20:00* Test Item Value Reference Range Interpretation Comments Lactic Acid Level (test code = Lactic Acid Level) 17.3 4.5- 19.8 [facility] SpringsLactic Acid Ldbyb8504-42-34 19:20:00* Test Item Value Reference Range Interpretation Comments Lactic Acid Level (test code = Lactic Acid Level) 17.3 4.5- 19.8 [facility] SpringsFOOT RIGHT DZUYLKNP4149-77-98 18:47:00 [facility] [address] [place] [address] Patient Name: ROSA ISELA BENITEZ MR #: [id number] : Age/Sex: 48/F Req #: [id number] Adm Physician: Ordered by: DIANNE BUSH MD Report #: [id number] Location: ER Room/Bed: Procedure: 73 DX/FOOT RIGHT [...] 11/17/181848 COPY TO: DIANNE BUSH MD Bedside Fnwhddy1479-06-54 07:45:00* Test Item Value Reference Range Interpretation Comments Bedside Glucose (test code = 65924-3) 137 70-120 H Meter ID: [id number] [facility]woodBlood Culture 2018-04-14 16:36:00* Test Item Value Reference Range Interpretation Comments Blood Culture (test code = 60887930) NO GROWTH AFTER 5 DAYS, FINAL REPORT [facility] Gxvvx4814-94-66 05:18:00* Test Item Value Reference Range Interpretation Comments Sodium Level (test code = 2951-2) 136 136-145 [facility] SpringsPotassium Fmqcg3264-10-30 05:18:00* Test Item Value Reference Range Interpretation Comments Potassium Level (test code = 2823-3) 3.3 3.5-5.1 L [facility] SpringsChloride Uilmu5221-97-55 05:18:00* Test Item Value Reference Range Interpretation Comments Chloride Level (test code = 2075-0) 99 98-107 [facility] SpringsCarbon Dioxide Myhdc6702-50-58 05:18:00* Test Item Value Reference Range Interpretation Comments Carbon Dioxide Level (test code = 2028-9) 24 - [facility] SpringsAnion Aee7877-13-66 05:18:00* Test Item Value Reference Range Interpretation Comments Anion Gap (test code = 75959-0) 16.3 8-16 H [facility] SpringsBlood Urea Jjbkunzu3707-82-73 05:18:00* Test Item Value Reference Range Interpretation Comments Blood Urea Nitrogen (test code = 3094-0) 12 11-10 [facility] SpringsCreatinine2018-12-26 05:18:00* Test Item Value Reference Range Interpretation Comments Creatinine (test code = 2160-0) 0.78 0.57-1.11 [facility] SpringsBUN/Creatinine Tqwkb0936-95-83 05:18:00* Test Item Value Reference Range Interpretation Comments BUN/Creatinine Ratio (test code = 3097-3) 15 10-10 [facility] SpringsEstimat Glomerular Filtration Rate 2018-04-12 05:18:00* Test Item Value Reference Range Interpretation Comments Estimat Glomerular Filtration Rate (test code = 394581910) > 60 >60 Ranges were taken from the National Kidney Disease Education Program and the [facility] Kidney Foundation literature.Reference ranges:60 or greater: Xbrizo39-45 ( for 3 consecutive months): Chronic kidney disease 15 or less: Kidney failureCH[facility]ST[facility] SpringsGlucose Yghee2091-31-43 05:18:00* Test Item Value Reference Range Interpretation Comments Glucose Level (test code = DZW1294) 216 74-118 H [facility] SpringsCalcium Ilwnl3145-14-47 05:18:00* Test Item Value Reference Range Interpretation Comments Calcium Level (test code = 33715-6) 9.3 8.4-10.2 [facility] SpringsTotal Racchmtav0501-50-92 05:18:00* Test Item Value Reference Range Interpretation Comments Total Bilirubin (test code = 1975-2) 0.4 0.2-1.2 [facility] SpringsAspartate Amino Transf (AST/SGOT) 2018-04-12 05:18:00* Test Item Value Reference Range Interpretation Comments Aspartate Amino Transf (AST/SGOT) (test code = Aspartate Amino Transf (AST/SGOT)) 24 5-34 [facility] SpringsAlanine Aminotransferase (ALT/SGPT) 2018-04-12 05:18:00* Test Item Value Reference Range Interpretation Comments Alanine Aminotransferase (ALT/SGPT) (test code = 1742-6) 114 0-55 [facility] Txleink7142-14-42 05:18:00* Test Item Value Reference Range Interpretation Comments Total Protein (test code = 2885-2) 6.8 6.5-8.1 [facility] SpringsAlbumin2018-12-26 05:18:00* Test Item Value Reference Range Interpretation Comments Albumin (test code = 1751-7) 2.9 3.5-5.0 L [facility] SpringsGlobulin2018-12-26 05:18:00* Test Item Value Reference Range Interpretation Comments Globulin (test code = 61678-0) 3.9 2.3-3.5 H [facility] SpringsAlbumin/Globulin Jzaot3437-79-50 05:18:00 * Test Item Value Reference Range Interpretation Comments Albumin/Globulin Ratio (test code = 1759-0) 0.7 0.8-2.0 L [facility] SpringsAlkaline Clxmdymkaky4422-56-16 05:18:00* Test Item Value Reference Range Interpretation Comments Alkaline Phosphatase (test code = 6768-6) 98 40-150 [facility] SpringsTriglycerides Htpvg4503-71-25 05:18:00* Test Item Value Reference Range Interpretation Comments Triglycerides Level (test code = 2571-8) 133 0-149 [facility] SpringsCholesterol Jsndq2929-90-07 05:18:00* Test Item Value Reference Range Interpretation Comments Cholesterol Level (test code = 2093-3) 220 0-199 H Less than 200 mg/dL Low Rdhx665 - 239 mg/dL Borderline Kgdh632 m g/dl and greater High Risk [facility] SpringsLDL Cqadreoaeco7886-87-67 05:18:00* Test Item Value Reference Range Interpretation Comments LDL Cholesterol (test code = 2089-1) 139 60-130 H [facility] Hsgmfuevizd5035-59-02 05:18:00* Test Item Value Reference Range Interpretation Comments HDL Cholesterol (test code = 2085-9) 54 40-60 [facility] SpringsCholesterol/HDL Dapeb6411-13-53 05:18:00 * Test Item Value Reference Range Interpretation Comments Cholesterol/HDL Ratio (test code = 9830-1) 4.1 3.0-3.6 H [facility] SpringsTriglycerides Ycgng0082-27-55 05:18:00* Test Item Value Reference Range Interpretation Comments Triglycerides Level (test code = 2571-8) 133 0-149 [facility] SpringsCholesterol Hrbvs7399-24-33 05:18:00* Test Item Value Reference Range Interpretation Comments Cholesterol Level (test code = 2093-3) 220 0-199 H Less than 200 mg/dL Low Btca980 - 239 mg/dL Borderline Efei628 m g/dl and greater High Risk [facility] Mloewzcygwj0258-44-40 05:18:00* Test Item Value Reference Range Interpretation Comments LDL Cholesterol (test code = 2089-1) 139 60-130 H [facility] Izaeduvuzxr2729-68-92 05:18:00* Test Item Value Reference Range Interpretation Comments HDL Cholesterol (test code = 2085-9) 54 40-60 [facility] SpringsCholesterol/HDL Djblm2562-70-45 05:18:00 * Test Item Value Reference Range Interpretation Comments Cholesterol/HDL Ratio (test code = 9830-1) 4.1 3.0-3.6 H [facility] SpringsTriglycerides Rcnlf2481-22-59 05:18:00* Test Item Value Reference Range Interpretation Comments Triglycerides Level (test code = 2571-8) 133 0-149 [facility] SpringsCholesterol Zxjtk1110-14-10 05:18:00* Test Item Value Reference Range Interpretation Comments Cholesterol Level (test code = 2093-3) 220 0-199 H Less than 200 mg/dL Low Jhww840 - 239 mg/dL Borderline Rwbk693 m g/dl and greater High Risk [facility] SpringsLDL Wehcnmrdwik0550-72-72 05:18:00* Test Item Value Reference Range Interpretation Comments LDL Cholesterol (test code = 2089-1) 139 60-130 H [facility] SpringsHDL Fdlxyomjpar6445-76-25 05:18:00* Test Item Value Reference Range Interpretation Comments HDL Cholesterol (test code = 2085-9) 54 40-60 [facility] SpringsCholesterol/HDL Nakqa8922-27-34 05:18:00 * Test Item Value Reference Range Interpretation Comments Cholesterol/HDL Ratio (test code = 9830-1) 4.1 3.0-3.6 H [facility] SpringsWhite Blood Qehbo9183-40-68 04:52:00* Test Item Value Reference Range Interpretation Comments White Blood Count (test code = 6690-2) 12.93 4.8-10.8 H [facility] SpringsRed Blood Vfafb5051-47-47 04:52:00* Test Item Value Reference Range Interpretation Comments Red Blood Count (test code = 789-8) 3.90 3.6-5.1 [facility] SpringsHemoglobin2018-12-26 04:52:00* Test Item Value Reference Range Interpretation Comments Hemoglobin (test code = 82161-1) 12.6 12.0-16.0 [facility] SpringsHematocrit2018-12-26 04:52:00* Test Item Value Reference Range Interpretation Comments Hematocrit (test code = 4544-3) 37.1 34.2-44.1 [facility] SpringsMean Corpuscular Edciha9551-65-71 04:52:00* Test Item Value Reference Range Interpretation Comments Mean Corpuscular Volume (test code = 787-2) 95.1 81-99 [facility] SpringsMean Corpuscular Wpctxxcebe9196-73-99 04:52:00* Test Item Value Reference Range Interpretation Comments Mean Corpuscular Hemoglobin (test code = 785-6) 32.3 28-32 H [facility] SpringsMean Corpuscular Hemoglobin Concent 2018-04-12 04:52:00* Test Item Value Reference Range Interpretation Comments Mean Corpuscular Hemoglobin Concent (test code = 786-4) 34.0 31-35 [facility] SpringsRed Cell Distribution Smptn5260-61-71 04:52:00* Test Item Value Reference Range Interpretation Comments Red Cell Distribution Width (test code = 97964-8) 14.2 11.7 -14.4 [facility] SpringsPlatelet Uwebc6478-44-32 04:52:00* Test Item Value Reference Range Interpretation Comments Platelet Count (test code = 777-3) 413 140-360 H [facility] SpringsNeutrophils (%) (Auto)2018-04-12 04:52:00 * Test Item Value Reference Range Interpretation Comments Neutrophils (%) (Auto) (test code = 53829-7) 88.2 38.7-80.0 H [facility] SpringsLymphocytes (%) (Auto)2018-04-12 04:52:00 * Test Item Value Reference Range Interpretation Comments Lymphocytes (%) (Auto) (test code = 736-9) 8.7 18.0-39.1 L [facility] SpringsMonocytes (%) (Auto)2018-04-12 04:52:00* Test Item Value Reference Range Interpretation Comments Monocytes (%) (Auto) (test code = 5905-5) 1.2 4.4-11.3 L [facility] SpringsEosinophils (%) (Auto)2018-04-12 04:52:00 * Test Item Value Reference Range Interpretation Comments Eosinophils (%) (Auto) (test code = 713-8) 0.0 0.0-6.0 [facility] SpringsBasophils (%) (Auto)2018-04-12 04:52:00* Test Item Value Reference Range Interpretation Comments Basophils (%) (Auto) (test code = 706-2) 0.2 0.0-1.0 [facility] SpringsIM GRANULOCYTES %2018-04-12 04:52:00* Test Item Value Reference Range Interpretation Comments IM GRANULOCYTES % (test code = IM GRANULOCYTES %) 1.7 0.0- 1.0 H [facility] SpringsNeutrophils # (Auto)2018-04-12 04:52:00* Test Item Value Reference Range Interpretation Comments Neutrophils # (Auto) (test code = 751-8) 11.4 2.1-6.9 H [facility] SpringsLymphocytes # (Auto)2018-04-12 04:52:00* Test Item Value Reference Range Interpretation Comments Lymphocytes # (Auto) (test code = 71550-5) 1.1 1.0-3.2 [facility] SpringsMonocytes # (Auto)2018-04-12 04:52:00* Test Item Value Reference Range Interpretation Comments Monocytes # (Auto) (test code = 742-7) 0.2 0.2-0.8 [facility] SpringsEosinophils # (Auto)2018-04-12 04:52:00* Test Item Value Reference Range Interpretation Comments Eosinophils # (Auto) (test code = 711-2) 0.0 0.0-0.4 [facility] SpringsBasophils # (Auto)2018-04-12 04:52:00* Test Item Value Reference Range Interpretation Comments Basophils # (Auto) (test code = 704-7) 0.0 0.0-0.1 [facility] SpringsAbsolute Immature Granulocyte (auto 2018-04-12 04:52:00* Test Item Value Reference Range Interpretation Comments Absolute Immature Granulocyte (auto (anita t code = Absolute Immature Granulocyte (auto) 0.22 0-0.1 H [facility] KingwoodCHEST XRAY LINE MGIISGZBP4974-12-35 13:49:00 [facility] [address] [place] [address] Patient Name: ROSA ISELA BENITEZ MR #: [id number] : 1970 Age/Sex: 48/F Req #: [id number] Adm Physician: PARMINDER NARVAEZ MD Ordered by: KATIE BOWEN MD Report #: [id number] Location: [facility] Room/Bed: [facility] Procedure: [id number] DX/CHEST XRAY LINE PLACEMENT Exam Date: 04/11/18 [...] COPY TO: KATIE BOWEN MD Hemoglobin A1c Sjlprqf6158-23-54 07:34:00* Test Item Value Reference Range Interpretation Comments Hemoglobin A1c Percent (test code = Hemoglobin A1c Percent) 7.0 4.0-7.0 [facility] SpringsHemoglobin A1c Bwxluda4776-35-57 07:34:00 * Test Item Value Reference Range Interpretation Comments Hemoglobin A1c Percent (test code = Hemoglobin A1c Percent) 7.0 4.0-7.0 [facility] SpringsHemoglobin A1c Erbltzg3837-23-41 07:34:00 * Test Item Value Reference Range Interpretation Comments Hemoglobin A1c Percent (test code = Hemoglobin A1c Percent) 7.0 4.0-7.0 [facility] A IgM Amclrhlg5062-90-76 06:27:00* Test Item Value Reference Range Interpretation Comments Hepatitis A IgM Antibody (test code = 19604-4) Negative Negativ e [facility] B Surface Bdgdpja0245-42-51 06:27:00* Test Item Value Reference Range Interpretation Comments Hepatitis B Surface Antigen (test code = 5196-1) Negative Negat damien [facility] B Core IgM Kwyttxpq5233-45-75 06:27:00* Test Item Value Reference Range Interpretation Comments Hepatitis B Core IgM Antibody (test code = 57274-7) Negative Ne gative [facility] C Xgrrlfee5768-92-65 06:27:00* Test Item Value Reference Range Interpretation Comments Hepatitis C Antibody (test code = 26207-7) 0.1 0.0-0.9 Negative: < 0.8 Indeterminate: 0.8 - 0.9 Positive: > 0.9 The CDC recommends that a positive HCV antibody result be followed up with a HCV Nucleic Acid Amplification test (222116).Performed at: [facility] [address] [place] [address] [id number] Director: Prasanna Mishra MD, Phone: [phone] Christi Medical Center Northwest A IgM Antibody 2018-04-11 06:27:00* Test Item Value Reference Range Interpretation Comments Hepatitis A IgM Antibody (test code = 92899-8) Negative Negativ e [facility] B Surface Bcodnvd6863-84-63 06:27:00* Test Item Value Reference Range Interpretation Comments Hepatitis B Surface Antigen (test code = 5196-1) Negative Negat damien [facility] B Core IgM Gafagxeb7550-74-70 06:27:00* Test Item Value Reference Range Interpretation Comments Hepatitis B Core IgM Antibody (test code = 62120-9) Negative Ne [facility] C Hgagjfgv9971-49-35 06:27:00* Test Item Value Reference Range Interpretation Comments Hepatitis C Antibody (test code = 54345-8) 0.1 0.0-0.9 Negative: < 0.8 Indeterminate: 0.8 - 0.9 Positive: > 0.9 The CDC recommends that a positive HCV antibody result be followed up with a HCV Nucleic Acid Amplification test (892514).Performed at: [facility] [address] [place] [address] [id number] Director: Prasanna Mishra MD, Phone: [phone] Christi [facility] A IgM Antibody 2018-04-11 06:27:00* Test Item Value Reference Range Interpretation Comments Hepatitis A IgM Antibody (test code = 09067-0) Negative Negativ e [facility] B Surface Uwkjunj0032-12-31 06:27:00* Test Item Value Reference Range Interpretation Comments Hepatitis B Surface Antigen (test code = 5196-1) Negative Negat damien [facility] B Core IgM Mnnqykbm6652-56-95 06:27:00* Test Item Value Reference Range Interpretation Comments Hepatitis B Core IgM Antibody (test code = 46285-4) Negative Ne [facility]atH[facility] Knxvldso3426-75-05 06:27:00* Test Item Value Reference Range Interpretation Comments Hepatitis C Antibody (test code = 20402-6) 0.1 0.0-0.9 Negative: < 0.8 Indeterminate: 0.8 - 0.9 Positive: > 0.9 The CDC recommends that a positive HCV antibody result be followed up with a HCV Nucleic Acid Amplification test (530015).Performed at: [facility] [address] [place], [place] [id number] Director: Prasanna Mishra MD, Phone: [phone] [facility] KingwoodUS EGXQK7617-69-47 13:19:00 [facility] [address] [place] [address] Patient Name: ROSA ISELA BENITEZ MR #: [id number] : Age/Sex: 48/F Req #: [id number] Adm Physician: PARMINDER NARVAEZ MD Ordered by: IDA BHANDARI MD Report #: [id number] Location: MED/SURG2 Room/Bed: [facility] Procedure: US/US LIVER Exam Date: Exam Time: [...] 2 COPY TO: IDA BHANDARI MD Urine ZBT9797-54-12 19:14:00* Test Item Value Reference Range Interpretation Comments Urine WBC (test code = 5821-4) 0-5 0-5 [facility] SpringsUrine ENU9832-00-13 19:14:00* Test Item Value Reference Range Interpretation Comments Urine RBC (test code = 05249-4) 0-5 0-5 [facility] SpringsUrine Zkxsxqdl4157-65-58 19:14:00* Test Item Value Reference Range Interpretation Comments Urine Bacteria (test code = 71855-9) NONE NONE [facility] SpringsUrine Epithelial Lbeqt5772-28-14 19:14:00 * Test Item Value Reference Range Interpretation Comments Urine Epithelial Cells (test code = 24673-0) MODERATE NONE [facility] SpringsUrine EAN8355-91-63 19:14:00* Test Item Value Reference Range Interpretation Comments Urine WBC (test code = 5821-4) 0-5 0-5 [facility] SpringsUrine GSD7207-14-00 19:14:00* Test Item Value Reference Range Interpretation Comments Urine RBC (test code = 13360-8) 0-5 0-5 [facility] SpringsUrine Nribuneb1820-93-15 19:14:00* Test Item Value Reference Range Interpretation Comments Urine Bacteria (test code = 73499-5) NONE NONE [facility] SpringsUrine Epithelial Kyllx1004-45-27 19:14:00 * Test Item Value Reference Range Interpretation Comments Urine Epithelial Cells (test code = 19653-2) MODERATE NONE [facility] SpringsUrine Pgoff1019-66-52 19:04:00* Test Item Value Reference Range Interpretation Comments Urine Color (test code = 5778-6) YELLOW YELLOW [facility] SpringsUrine Gfxumkv2003-23-50 19:04:00* Test Item Value Reference Range Interpretation Comments Urine Clarity (test code = 27726-8) CLEAR CLEAR [facility] Specific Gpxaify8204-15-96 19:04:00 * Test Item Value Reference Range Interpretation Comments Urine Specific Marble (test code = 5811-5) 1.010 1.010-1.02 5 [facility] SpringsUrine tS1903-74-23 19:04:00* Test Item Value Reference Range Interpretation Comments Urine pH (test code = 33191-5) 6.5 5-7 [facility] Leukocyte Kgktenon4311-13-50 19:04:00* Test Item Value Reference Range Interpretation Comments Urine Leukocyte Esterase (test code = 5799-2) NEGATIVE NEGATIVE [facility] Aegfxlw8795-35-28 19:04:00* Test Item Value Reference Range Interpretation Comments Urine Nitrite (test code = 89664-8) NEGATIVE NEGATIVE [facility] Alefwuo1027-10-92 19:04:00* Test Item Value Reference Range Interpretation Comments Urine Protein (test code = 5804-0) NEGATIVE NEGATIVE [facility] Glucose (UA)2018-04-09 19:04:00* Test Item Value Reference Range Interpretation Comments Urine Glucose (UA) (test code = 2349-9) NEGATIVE NEGATIVE [facility] SpringsUrine Zpyskdz8228-14-80 19:04:00* Test Item Value Reference Range Interpretation Comments Urine Ketones (test code = 57074-8) NEGATIVE NEGATIVE [facility] Ababduqwiabc3526-16-73 19:04:00* Test Item Value Reference Range Interpretation Comments Urine Urobilinogen (test code = 45251-8) 0.2 0.2-1 [facility] SpringsUrine Gvkamifop8450-62-05 19:04:00* Test Item Value Reference Range Interpretation Comments Urine Bilirubin (test code = 1978-6) NEGATIVE NEGATIVE [facility] SpringsUrine Qtctz1827-13-18 19:04:00* Test Item Value Reference Range Interpretation Comments Urine Blood (test code = 67118-5) NEGATIVE NEGATIVE [facility] SpringsUrine Rhluw3485-89-47 19:04:00* Test Item Value Reference Range Interpretation Comments Urine Color (test code = 5778-6) YELLOW YELLOW [facility] SpringsUrine Qbphebk4141-77-92 19:04:00* Test Item Value Reference Range Interpretation Comments Urine Clarity (test code = 31199-6) CLEAR CLEAR [facility] SpringsUrine Specific Lhnsnyn8493-95-79 19:04:00 * Test Item Value Reference Range Interpretation Comments Urine Specific Marble (test code = 5811-5) 1.010 1.010-1.02 5 [facility] SpringsUrine [id number] 19:04:00* Test Item Value Reference Range Interpretation Comments Urine pH (test code = 77495-3) 6.5 5-7 [facility] SpringsUrine Leukocyte Eratvmln0424-49-74 19:04:00* Test Item Value Reference Range Interpretation Comments Urine Leukocyte Esterase (test code = 5799-2) NEGATIVE NEGATIVE [facility] SpringsUrine Wthmzsd9575-73-66 19:04:00* Test Item Value Reference Range Interpretation Comments Urine Nitrite (test code = 08429-2) NEGATIVE NEGATIVE [facility] SpringsUrine Zlcxzit0649-67-98 19:04:00* Test Item Value Reference Range Interpretation Comments Urine Protein (test code = 5804-0) NEGATIVE NEGATIVE [facility] SpringsUrine Glucose (UA)2018-04-09 19:04:00* Test Item Value Reference Range Interpretation Comments Urine Glucose (UA) (test code = 2349-9) NEGATIVE NEGATIVE [facility] SpringsUrine Znoqtzr7805-65-68 19:04:00* Test Item Value Reference Range Interpretation Comments Urine Ketones (test code = 55456-1) NEGATIVE NEGATIVE [facility] SpringsUrine Rpwpgyczzqgy3754-15-01 19:04:00* Test Item Value Reference Range Interpretation Comments Urine Urobilinogen (test code = 76323-2) 0.2 0.2-1 [facility] SpringsUrine Qkfgvruga8427-92-51 19:04:00* Test Item Value Reference Range Interpretation Comments Urine Bilirubin (test code = 1978-6) NEGATIVE NEGATIVE [facility] SpringsUrine Nhyas2001-61-28 19:04:00* Test Item Value Reference Range Interpretation Comments Urine Blood (test code = 44315-8) NEGATIVE NEGATIVE [facility] SpringsLactic Acid Ipdrt3878-44-99 16:51:00* Test Item Value Reference Range Interpretation Comments Lactic Acid Level (test code = Lactic Acid Level) 12.6 4.5- 19.8 [facility] SpringsCreatine Kinase [id number] 16:32:00* Test Item Value Reference Range Interpretation Comments Creatine Kinase MB (test code = 49260-9) 1.70 0-5.0 [facility] SpringsTroponin [id number] 16:32:00* Test Item Value Reference Range Interpretation Comments Troponin I (test code = UES9850) 0.197 0-0.300 [facility] SpringsCreatine Kinase [id number] 16:32:00* Test Item Value Reference Range Interpretation Comments Creatine Kinase MB (test code = 87743-8) 1.70 0-5.0 [facility] SpringsTropon [id number] 16:32:00* Test Item Value Reference Range Interpretation Comments Troponin I (test code = JSY2896) 0.197 0-0.300 [facility] SpringsCreatine Zskqgx0309-24-26 16:25:00* Test Item Value Reference Range Interpretation Comments Creatine Kinase (test code = 2157-6) 32 29-168 [facility] SpringsLipase2018-12-23 16:25:00* Test Item Value Reference Range Interpretation Comments Lipase (test code = 3040-3) 9 8-78 [facility] SpringsCreatine Zmeoms1780-09-94 16:25:00* Test Item Value Reference Range Interpretation Comments Creatine Kinase (test code = 2157-6) 32 29-168 [facility] SpringsLipase2018-12-23 16:25:00* Test Item Value Reference Range Interpretation Comments Lipase (test code = 3040-3) [facility] SpringsLipase2018-12-23 16:25:00* Test Item Value Reference Range Interpretation Comments Lipase (test code = 3040-3) [facility] SpringsActivated Partial Thromboplast Time 2018-04-09 16:14:00* Test Item Value Reference Range Interpretation Comments Activated Partial Thromboplast Time (test code = 80835-5) 29.1 23.8-35.5 [facility] SpringsActivated Partial Thromboplast Time 2018-04-09 16:14:00* Test Item Value Reference Range Interpretation Comments Activated Partial Thromboplast Time (test code = 42554-5) 29.1 23.8-35.5 [facility] SpringsActivated Partial Thromboplast Time 2018-04-09 16:14:00* Test Item Value Reference Range Interpretation Comments Activated Partial Thromboplast Time (test code = 51775-5) 29.1 23.8-35.5 [facility] SpringsProthrombin Wjlf0050-18-86 16:13:00* Test Item Value Reference Range Interpretation Comments Prothrombin Time (test code = 5902-2) 12.5 11.9-14.5 [facility] SpringsProthromb Time International Ratio 2018-04-09 16:13:00* Test Item Value Reference Range Interpretation Comments Prothromb Time International Ratio (test code = 6301-6) 0.86 Oral Anticoagulant Therapy INR Values:1. Low Intensity Therapy 1.5 - 2.02 . Moderate Intensity Therapy 2.0 - 3.03. High Intensity Therapy(1) 2.5 - 3. 54. High Intensity Therapy(2) 3.0 - 4.05. Panic Value INR > 5.0 [facility] SpringsProthrombin Fknq7893-14-89 16:13:00* Test Item Value Reference Range Interpretation Comments Prothrombin Time (test code = 5902-2) 12.5 11.9-14.5 [facility] SpringsProthromb Time International Ratio 2018-04-09 16:13:00* Test Item Value Reference Range Interpretation Comments Prothromb Time International Ratio (test code = 6301-6) 0.86 Oral Anticoagulant Therapy INR Values:1. Low Intensity Therapy 1.5 - 2.02 . Moderate Intensity Therapy 2.0 - 3.03. High Intensity Therapy(1) 2.5 - 3. 54. High Intensity Therapy(2) 3.0 - 4.05. Panic Value INR > 5.0 [facility] SpringsProthrombin Lcmk9509-13-51 16:13:00* Test Item Value Reference Range Interpretation Comments Prothrombin Time (test code = 5902-2) 12.5 11.9-14.5 [facility] SpringsProthromb Time International Ratio 2018-04-09 16:13:00* Test Item Value Reference Range Interpretation Comments Prothromb Time International Ratio (test code = 6301-6) 0.86 Oral Anticoagulant Therapy INR Values:1. Low Intensity Therapy 1.5 - 2.02 . Moderate Intensity Therapy 2.0 - 3.03. High Intensity Therapy(1) 2.5 - 3. 54. High Intensity Therapy(2) 3.0 - 4.05. Panic Value INR > 5.0 [facility] SpringsBlood Ufliday8575-37-22 04:17:00* Test Item Value Reference Range Interpretation Comments Blood Culture (test code = 02671046) NO GROWTH AFTER 5 DAYS, FINAL REPORT [facility] SpringsBedside Usvevdj2494-32-49 20:11:00* Test Item Value Reference Range Interpretation Comments Bedside Glucose (test code = 60123-8) 135 70-120 H Meter ID: [id number] [facility] Medical CenterDifferential Total Cells Wzzgjmb4636-22-48 08:02:00* Test Item Value Reference Range Interpretation Comments Differential Total Cells Counted (test code = Differgeoff tial Total Cells Counted) 100 [facility] SpringsNeutrophils % (Manual)2017-10-10 08:02:00 * Test Item Value Reference Range Interpretation Comments Neutrophils % (Manual) (test code = 25461-7) 52 40-74 [facility] SpringsLymphocytes % (Manual)2017-10-10 08:02:00 * Test Item Value Reference Range Interpretation Comments Lymphocytes % (Manual) (test code = 737-7) 29 19-48 [facility] SpringsMonocytes % (Manual)2017-10-10 08:02:00* Test Item Value Reference Range Interpretation Comments Monocytes % (Manual) (test code = 744-3) 9 3.4-9.0 [facility] SpringsEosinophils % (Manual)2017-10-10 08:02:00 * Test Item Value Reference Range Interpretation Comments Eosinophils % (Manual) (test code = 714-6) 2 0-7 [facility] SpringsMetamyelocytes %2017-10-10 08:02:00* Test Item Value Reference Range Interpretation Comments Metamyelocytes % (test code = 740-1) 3 0-0 H [facility] SpringsMyelocytes %2017-10-10 08:02:00* Test Item Value Reference Range Interpretation Comments Myelocytes % (test code = 749-2) 5 0-0 H [facility] SpringsPlatelet Htocbivs0162-37-08 08:02:00* Test Item Value Reference Range Interpretation Comments Platelet Estimate (test code = 56621-0) ADEQUATE [facility] SpringsPlatelet Morphology Xczkjtz3823-74-15 08:02:00* Test Item Value Reference Range Interpretation Comments Platelet Morphology Comment (test code = 33401-1) NORMAL [facility] SpringsRed Cell Morphology Paixhey1954-21-18 08:02:00* Test Item Value Reference Range Interpretation Comments Red Cell Morphology Comment (test code = 6742-1) NORMAL [facility] SpringsDifferential Total Cells Counted 2017-10-10 08:02:00* Test Item Value Reference Range Interpretation Comments Differential Total Cells Counted (test code = Differgeoff tial Total Cells Counted) 100 [facility] SpringsNeutrophils % (Manual)2017-10-10 08:02:00 * Test Item Value Reference Range Interpretation Comments Neutrophils % (Manual) (test code = 57559-3) 52 40-74 [facility] SpringsLymphocytes % (Manual)2017-10-10 08:02:00 * Test Item Value Reference Range Interpretation Comments Lymphocytes % (Manual) (test code = 737-7) 29 19-48 [facility] SpringsMonocytes % (Manual)2017-10-10 08:02:00* Test Item Value Reference Range Interpretation Comments Monocytes % (Manual) (test code = 744-3) 9 3.4-9.0 [facility] SpringsEosinophils % (Manual)2017-10-10 08:02:00 * Test Item Value Reference Range Interpretation Comments Eosinophils % (Manual) (test code = 714-6) 2 0-7 [facility] SpringsMetamyelocytes %2017-10-10 08:02:00* Test Item Value Reference Range Interpretation Comments Metamyelocytes % (test code = 740-1) 3 0-0 H [facility] SpringsMyelocytes %2017-10-10 08:02:00* Test Item Value Reference Range Interpretation Comments Myelocytes % (test code = 749-2) 5 0-0 H [facility] SpringsPlatelet Vekemlvs4355-51-56 08:02:00* Test Item Value Reference Range Interpretation Comments Platelet Estimate (test code = 75195-4) ADEQUATE [facility] SpringsPlatelet Morphology Xcveuor7271-80-10 08:02:00* Test Item Value Reference Range Interpretation Comments Platelet Morphology Comment (test code = 34718-0) NORMAL [facility] SpringsRed Cell Morphology Aaxgoff1705-76-02 08:02:00* Test Item Value Reference Range Interpretation Comments Red Cell Morphology Comment (test code = 6742-1) NORMAL [facility] SpringsWhite Blood Mfnab0296-08-45 07:05:00* Test Item Value Reference Range Interpretation Comments White Blood Count (test code = 6690-2) 13.59 4.8-10.8 H [facility] SpringsRed Blood Xirfk6063-05-61 07:05:00* Test Item Value Reference Range Interpretation Comments Red Blood Count (test code = 789-8) 3.76 3.6-5.1 [facility] SpringsHemoglobin2018-06-25 07:05:00* Test Item Value Reference Range Interpretation Comments Hemoglobin (test code = 42425-2) 12.5 12.0-16.0 [facility] SpringsHematocrit2018-06-25 07:05:00* Test Item Value Reference Range Interpretation Comments Hematocrit (test code = 4544-3) 36.4 34.2-44.1 [facility] SpringsMean Corpuscular Dbtvpk7749-53-90 07:05:00* Test Item Value Reference Range Interpretation Comments Mean Corpuscular Volume (test code = 787-2) 96.8 81-99 [facility] SpringsMean Corpuscular Osfnnnlebi2820-23-88 07:05:00* Test Item Value Reference Range Interpretation Comments Mean Corpuscular Hemoglobin (test code = 785-6) 33.2 28-32 H [facility] SpringsMean Corpuscular Hemoglobin Concent 2017-10-10 07:05:00* Test Item Value Reference Range Interpretation Comments Mean Corpuscular Hemoglobin Concent (test code = 786-4) 34.3 31-35 [facility] SpringsRed Cell Distribution Cmovf8154-46-39 07:05:00* Test Item Value Reference Range Interpretation Comments Red Cell Distribution Width (test code = 52405-5) 14.9 11.7 -14.4 H [facility] SpringsPlatelet Izleq4534-25-70 07:05:00* Test Item Value Reference Range Interpretation Comments Platelet Count (test code = 777-3) 371 140-360 H [facility] SpringsNeutrophils (%) (Auto)2017-10-10 07:05:00 * Test Item Value Reference Range Interpretation Comments Neutrophils (%) (Auto) (test code = 48436-6) 59.8 38.7-80.0 [facility] SpringsLymphocytes (%) (Auto)2017-10-10 07:05:00 * Test Item Value Reference Range Interpretation Comments Lymphocytes (%) (Auto) (test code = 736-9) 25.1 18.0-39.1 [facility] SpringsMonocytes (%) (Auto)2017-10-10 07:05:00* Test Item Value Reference Range Interpretation Comments Monocytes (%) (Auto) (test code = 5905-5) 7.7 4.4-11.3 [facility] SpringsEosinophils (%) (Auto)2017-10-10 07:05:00 * Test Item Value Reference Range Interpretation Comments Eosinophils (%) (Auto) (test code = 713-8) 0.7 0.0-6.0 [facility] SpringsBasophils (%) (Auto)2017-10-10 07:05:00* Test Item Value Reference Range Interpretation Comments Basophils (%) (Auto) (test code = 706-2) 0.9 0.0-1.0 [facility] SpringsIM GRANULOCYTES %2017-10-10 07:05:00* Test Item Value Reference Range Interpretation Comments IM GRANULOCYTES % (test code = IM GRANULOCYTES %) 5.8 0.0- 1.0 H [facility] SpringsNeutrophils # (Auto)2017-10-10 07:05:00* Test Item Value Reference Range Interpretation Comments Neutrophils # (Auto) (test code = 751-8) 8.1 2.1-6.9 H [facility] SpringsLymphocytes # (Auto)2017-10-10 07:05:00* Test Item Value Reference Range Interpretation Comments Lymphocytes # (Auto) (test code = 50772-4) 3.4 1.0-3.2 H [facility] SpringsMonocytes # (Auto)2017-10-10 07:05:00* Test Item Value Reference Range Interpretation Comments Monocytes # (Auto) (test code = 742-7) 1.1 0.2-0.8 H [facility] SpringsEosinophils # (Auto)2017-10-10 07:05:00* Test Item Value Reference Range Interpretation Comments Eosinophils # (Auto) (test code = 711-2) 0.1 0.0-0.4 [facility] SpringsBasophils # (Auto)2017-10-10 07:05:00* Test Item Value Reference Range Interpretation Comments Basophils # (Auto) (test code = 704-7) 0.1 0.0-0.1 [facility] SpringsAbsolute Immature Granulocyte (auto 2017-10-10 07:05:00* Test Item Value Reference Range Interpretation Comments Absolute Immature Granulocyte (auto (anita t code = Absolute Immature Granulocyte (auto) 0.79 0-0.1 [facility]odium Rprdo3841-68-74 08:10:00* Test Item Value Reference Range Interpretation Comments Sodium Level (test code = 2951-2) 139 136-145 [facility] SpringsPotassium Ouihq2587-70-70 08:10:00* Test Item Value Reference Range Interpretation Comments Potassium Level (test code = 2823-3) 3.8 3.5-5.1 [facility] SpringsChloride Ifgne7569-40-98 08:10:00* Test Item Value Reference Range Interpretation Comments Chloride Level (test code = 2075-0) 104 98-107 [facility] SpringsCarbon Dioxide Uisrp1647-07-86 08:10:00* Test Item Value Reference Range Interpretation Comments Carbon Dioxide Level (test code = 2028-9) 24 22- [facility] SpringsAnion Rhx3741-33-46 08:10:00* Test Item Value Reference Range Interpretation Comments Anion Gap (test code = 69789-0) 14.8 8-16 [facility] SpringsBlood Urea Hglqpomu8978-60-37 08:10:00* Test Item Value Reference Range Interpretation Comments Blood Urea Nitrogen (test code = 3094-0) 18 7-26 [facility] SpringsCreatinine2018-06-24 08:10:00* Test Item Value Reference Range Interpretation Comments Creatinine (test code = 2160-0) 0.78 0.57-1.11 [facility] SpringsBUN/Creatinine Iwwji6339-24-84 08:10:00* Test Item Value Reference Range Interpretation Comments BUN/Creatinine Ratio (test code = 3097-3) 23 6-25 [facility] SpringsEstimat Glomerular Filtration Rate 2017-10-09 08:10:00* Test Item Value Reference Range Interpretation Comments Estimat Glomerular Filtration Rate (test code = 56789-3) 60- >60 Ranges were taken from the National Kidney Disease Education Program and the [facility] Kidney Foundation literature.Reference ranges:60 or greater: Qerslq22-78 ( for 3 consecutive months): Chronic kidney disease 15 or less: Kidney failureCHRISTUS [facility] – [facility] SpringsGlucose Gzfve2479-46-68 08:10:00* Test Item Value Reference Range Interpretation Comments Glucose Level (test code = VTI8485) 125 74-118 H [facility] SpringsCalcium Swcwt6064-99-94 08:10:00* Test Item Value Reference Range Interpretation Comments Calcium Level (test code = 88123-6) 9.2 8.4-10.2 [facility] SpringsTotal Kcuyqbmmw9821-42-57 08:10:00* Test Item Value Reference Range Interpretation Comments Total Bilirubin (test code = 1975-2) 0.3 0.2-1.2 [facility] SpringsAspartate Amino Transf (AST/SGOT) 2017-10-09 08:10:00* Test Item Value Reference Range Interpretation Comments Aspartate Amino Transf (AST/SGOT) (test code = Aspartate Amino Transf (AST/SGOT)) 22 5-34 [facility] SpringsAlanine Aminotransferase (ALT/SGPT) 2017-10-09 08:10:00* Test Item Value Reference Range Interpretation Comments Alanine Aminotransferase (ALT/SGPT) (test code = 1742-6) 43 0-55 [facility] SpringsTotal Eugyxok8730-55-45 08:10:00* Test Item Value Reference Range Interpretation Comments Total Protein (test code = 2885-2) 6.6 6.5-8.1 [facility] SpringsAlbumin2018-06-24 08:10:00* Test Item Value Reference Range Interpretation Comments Albumin (test code = 1751-7) 3.1 3.5-5.0 L [facility] SpringsGlobulin2018-06-24 08:10:00* Test Item Value Reference Range Interpretation Comments Globulin (test code = 05630-1) 3.5 2.3-3.5 [facility] SpringsAlbumin/Globulin Twalo7920-08-21 08:10:00 * Test Item Value Reference Range Interpretation Comments Albumin/Globulin Ratio (test code = 1759-0) 0.9 0.8-2.0 [facility] SpringsAlkaline Raqhxsxolgj5352-90-45 08:10:00* Test Item Value Reference Range Interpretation Comments Alkaline Phosphatase (test code = 6768-6) 76 40-150 [facility] SpringsTriglycerides Qvesi8711-27-80 08:10:00* Test Item Value Reference Range Interpretation Comments Triglycerides Level (test code = 2571-8) 677 0-149 H [facility] SpringsCholesterol Webqr8961-69-69 08:10:00* Test Item Value Reference Range Interpretation Comments Cholesterol Level (test code = 2093-3) 267 0-199 H Less than 200 mg/dL Low Qblq910 - 239 mg/dL Borderline Sumf849 m g/dl and greater High Risk [facility] SpringsHDL Gissuxdzqmk5171-77-95 08:10:00* Test Item Value Reference Range Interpretation Comments HDL Cholesterol (test code = 2085-9) 50 40-60 [facility] SpringsCholesterol/HDL Lqguh5347-33-42 08:10:00 * Test Item Value Reference Range Interpretation Comments Cholesterol/HDL Ratio (test code = 9830-1) 5.3 3.0-3.6 H [facility] SpringsCreatine Kinase [id number] 19:38:00* Test Item Value Reference Range Interpretation Comments Creatine Kinase MB (test code = 19853-9) 2.40 0-5.0 [facility] SpringsTroponin [id number] 19:38:00* Test Item Value Reference Range Interpretation Comments Troponin I (test code = CTN8293) -0.001 0-0.300 [facility] SpringsCreatine Ncehqw3703-68-43 19:28:00* Test Item Value Reference Range Interpretation Comments Creatine Kinase (test code = 2157-6) 84 29-168 [facility] SpringsUrine Leukocyte Ulrsickb3448-03-47 14:17:00* Test Item Value Reference Range Interpretation Comments Urine Leukocyte Esterase (test code = 5799-2) 1+ NEGATIVE H --- 10/08/17 1416 ---LEUKO ESTERASE previously reported as: NEGATIVE [facility] SpringsUrine VEC9074-21-53 14:13:00* Test Item Value Reference Range Interpretation Comments Urine WBC (test code = 5821-4) 6-10 0-5 H [facility] SpringsUrine LRF6081-11-14 14:13:00* Test Item Value Reference Range Interpretation Comments Urine RBC (test code = 18116-1) 0-5 0-5 [facility] SpringsUrine Bfxsrthf9799-86-87 14:13:00* Test Item Value Reference Range Interpretation Comments Urine Bacteria (test code = 87274-6) FEW NONE [facility] SpringsUrine Epithelial Ftxrv0716-14-19 14:13:00 * Test Item Value Reference Range Interpretation Comments Urine Epithelial Cells (test code = 27096-5) FEW NONE [facility] SpringsUrine Irhfj6455-78-27 14:09:00* Test Item Value Reference Range Interpretation Comments Urine Color (test code = 5778-6) YELLOW YELLOW [facility] SpringsUrine Bspgpwf8449-77-16 14:09:00* Test Item Value Reference Range Interpretation Comments Urine Clarity (test code = 41290-4) CLEAR CLEAR [facility] SpringsUrine Specific Pbosslt5765-00-35 14:09:00 * Test Item Value Reference Range Interpretation Comments Urine Specific Marble (test code = 5811-5) 1.020 1.010-1.02 5 [facility] SpringsUrine aU3137-42-40 14:09:00* Test Item Value Reference Range Interpretation Comments Urine pH (test code = 44079-1) 6 5-7 [facility] SpringsUrine Bakvbkq4763-34-84 14:09:00* Test Item Value Reference Range Interpretation Comments Urine Nitrite (test code = 81955-7) NEGATIVE NEGATIVE [facility] SpringsUrine Hxjgdth1093-55-71 14:09:00* Test Item Value Reference Range Interpretation Comments Urine Protein (test code = 5804-0) NEGATIVE NEGATIVE [facility] SpringsUrine Glucose (UA)2017-10-08 14:09:00* Test Item Value Reference Range Interpretation Comments Urine Glucose (UA) (test code = 2349-9) NEGATIVE NEGATIVE [facility] SpringsUrine Covhnft4222-46-33 14:09:00* Test Item Value Reference Range Interpretation Comments Urine Ketones (test code = 98863-3) NEGATIVE NEGATIVE [facility] SpringsUrine Vweyvntvnbwp2544-61-14 14:09:00* Test Item Value Reference Range Interpretation Comments Urine Urobilinogen (test code = 10646-8) 0.2 0.2-1 [facility] SpringsUrine Hdwroghtj6573-19-18 14:09:00* Test Item Value Reference Range Interpretation Comments Urine Bilirubin (test code = 1978-6) NEGATIVE NEGATIVE [facility] SpringsUrine Jffre8212-70-18 14:09:00* Test Item Value Reference Range Interpretation Comments Urine Blood (test code = 11028-9) NEGATIVE NEGATIVE [facility] SpringsUrine Oeml0844-97-35 14:09:00* Test Item Value Reference Range Interpretation Comments Urine Test (test code = 2106-3) NEGATIVE NEGATIVE [facility] [id number] 14:09:00* Test Item Value Reference Range Interpretation Comments Urine Test (test code = 2106-3) NEGATIVE NEGATIVE [facility]Hemoglobin A1c [id number] 08:53:00 * Test Item Value Reference Range Interpretation Comments Hemoglobin A1c Percent (test code = Hemoglobin A1c Percent) 7.0 4.0-7.0 [facility] SpringsThyroid Stimulating Hormone (TSH) 2017-10-08 04:23:00* Test Item Value Reference Range Interpretation Comments Thyroid Stimulating Hormone (TSH) (test code = 92547-7) 1.862 0.350-4.940 [facility] Stim[facility] Hormone (TSH) 2017-10-08 04:23:00* Test Item Value Reference Range Interpretation Comments Thyroid Stimulating Hormone (TSH) (test code = 71439-7) 1.862 0.350-4.940 [facility]CHEST SINGLE (PORTABLE)2017-10-08 04:20:00 [place] [id number] [place] [address] Patient Name: ROSA ISELA BENITEZ MR #: [id number] : 1970 Age/Sex: 47/F Req #: [id number] Adm Physician: Ordered by: ALAN NAJERA MD Report #: [id number] Location: ER Room/Bed: Procedure: [id number] DX/CHEST SINGLE (PORTABLE ) Exam Date: 10/08/17 [...] COPY TO: ALAN NAJERA MD LOWER LEG [id number] 04:18:00 [place] [address] Patient Name: ROSA ISELA BENITEZ MR #: [id number] : 1970 Age/Sex: 47/F Req #: [id number] Adm Physician: Ordered by: ALAN NAJERA MD Report #: [id number] Location: Room/Bed: Procedure: [id number] DX/LOWER LEG RIGHT Exam Date: 10/08/17 Exam [...] COPY TO: ALAN NAJERA MD B-Type Natriuretic [id number] 04:06:00* Test Item Value Reference Range Interpretation Comments B-Type Natriuretic Peptide (test code = 47214-6) 17.1 0-100 [facility] Natri[facility]tic [id number] 04:06:00* Test Item Value Reference Range Interpretation Comments B-Type Natriuretic Peptide (test code = 24696-1) 17.1 0-100 [facility] SpringsProthrombin [id number] 03:58:00* Test Item Value Reference Range Interpretation Comments Prothrombin Time (test code = 5902-2) 12.0 11.9-14.5 [facility]Prothromb Time International Ratio 2017-10-08 03:58:00* Test Item Value Reference Range Interpretation Comments Prothromb Time International Ratio (test code = 6301-6) 0.96 Oral Anticoagulant Therapy INR Values:1. Low Intensity Therapy 1.5 - 2.02 . Moderate Intensity Therapy 2.0 - 3.03. High Intensity Therapy(1) 2.5 - 3. 54. High Intensity Therapy(2) 3.0 - 4.05. Panic Value INR > 5.0 [facility] SpringsActivated Partial Thromboplast Time 2017-10-08 03:58:00* Test Item Value Reference Range Interpretation Comments Activated Partial Thromboplast Time (test code = 59243-0) 25.0 23.8-35.5 [facility] SpringsD-Dimer Quantitative (PE/DVT)2017-10-08 03:58:00* Test Item Value Reference Range Interpretation Comments D-Dimer Quantitative (PE/DVT) (test code = 02336-4) 0.86 0. 00-0.45 H As with all in vitro diagnostic tests, the test results should be interpreted by the physician in conjunction with clinical findings and other test results.Test results are reported in NEW D-dimer units(ug/mLFEU).[facility] SpringsMagnesium [id number] 03:58:00* Test Item Value Reference Range Interpretation Comments Magnesium Level (test code = 24202-4) 1.9 1.3-2.1 [facility] SpringsD-Dimer Quantitative (PE/DVT)2017-10-08 03:58:00* Test Item Value Reference Range Interpretation Comments D-Dimer Quantitative (PE/DVT) (test code = 02430-6) 0.86 0. 00-0.45 H As with all in vitro diagnostic tests, the test results should be interpreted by the physician in conjunction with clinical findings and other test results.Test results are reported in NEW D-dimer units(ug/mLFEU).[facility] SpringsMagnesium [id number] 03:58:00* Test Item Value Reference Range Interpretation Comments Magnesium Level (test code = 72613-4) 1.9 1.3-2.1 [facility]
--- OUTSIDE RECORDS SUMMARY | 2020-01-04 10:52 | XMS REPORT | Continuity of Care Document ---
Author Author [facility] Organization [facility] Address [address] [place] [address] Phone Unavailable Care Team Providers Care Sheep Herder Name Role Phone SOLANGE SORIA, MD ZURITA PCP PARMINDER NARVAEZ Attphys Unavailable DARBYESTER Attphys Unavailable BERNA, S AMBICA Attphys Unavailable SWEET, A LAIRD Attphys Unavailable PARMINDER NARVAEZ Admphys Unavailable Payers Payer Name Policy Type Policy Number Effective Date Expiration Date Kiko Marin [facility] [id number] 2011 00:00:00 [facility] Problems Condition Name Condition Details Condition Category Status Onset Date Resolution Date Last Treatment Date Treating Clinician Comments Source Chronic bronchitis Chronic bronchitis Problem Active 2014-07-02 00:00:0 0 [facility] Candidiasis of mouth and esophagus Thrush of mouth and esophagus Pr oblem Active 2014-07-02 00:00:00 [facility] Cellulitis Cellulitis Problem Active [facility] Edema of foot Pedal edema Problem Active [facility] Cellulitis and abscess of foot excluding toe Celluliti s and abscess of foot, except toes Problem Active [facility] Hypokalemia Hypokalemia Problem Active [facility] Edema Edema Problem Active [facility] Leukocytosis Elevated WBC count Problem Active [facility] Lupus erythematosus Lupus Problem Active [facility] Fall Fall Problem Active [facility] Laceration of left forearm Laceration of left forearm Problem Active [facility] Severe sepsis Severe sepsis Problem Active [facility] Urinary tract infection UTI (urinary tract infection) Problem Active [facility] Laceration of right knee Problem Active [facility] Cellulitis of both lower extremities Problem Active [facility] Allergies, Adverse Reactions, Alerts Allergy Name Allergy Type Status Severity Reaction(s) Onset Date Inacti ve Date Treating Clinician Comments Source Meropenem Propensity to adverse reactions Active hives 2018-0 8-03 00:00:00 [facility] Cefepime Allergy to substance Active 2018-11-17 00:00:00 [facility] Linezolid Allergy to substance Active Moderate 2018-04-11 00:00:00 [facility] Fish Containing Products Allergy to substance Active Severe 2018-04-09 00:00:00 [facility] Iodine Allergy to substance Active 2018-04-09 00:00:00 [facility] Neomycin Allergy to substance Active Moderate causes skin to get crusty and yellow 2018-04-09 00:00:00 [facility] Bacitracin Allergy to substance Active Moderate causes skin to get yellow and crusty 2018-04-09 00:00:00 [facility] Vancomycin Allergy to substance Active Severe honey symdrome ? 2018-04-09 00:00:00 [facility] Polymyxin b Allergy to substance Active Moderate causes skin to get crusty and yellow 2018-04-09 00:00:00 [facility] shellfish derived Allergy to substance Active Severe 2018-03-19 3 00:00:00 [facility] CHITOSAN Allergy to substance Active 2016-07-06 00:00:00 [facility] Social History Social Habit Start Date Stop Date Quantity Comments Source Sex Assigned At 1970 00:00:00 1970 00:00:00 Female [facility] Medications Ordered Medication Name Filled Medication Name Start Date Stop Da te Current Medication? Ordering Clinician Indication Dosage Frequency Signature (SIG) Comments Components Source Albuterol Sulfate (Ventolin Hfa) 18 Gm HFA.AER.AD Albu terol Sulfate (Ventolin Hfa) 18 Gm HFA.AER.AD Yes Every 4 Hours as needed for Allergy [facility] Alprazolam Alprazolam Yes .25 Three Time s A Day as needed for Anxiety [facility] A[facility]olol Atenolol Yes 25 Twice A Day [facility] Cyclobenzaprine Hcl Cyclobenzaprine Hcl Yes 10 Three Times A Day as needed for Muscle Spasms [facility] Epinephrine Epinephrine Yes C HI [facility] Furosemide Furosemide Yes 40 Daily as needed fo r Swelling [facility] Glimepiride Glimepiride Yes 4 Daily [facility] Hydrocodone Bit/Acetaminophen (Hydrocodon-Acetaminophn 10-325) 1 Each TABLET Hydrocodone Bit/Acetaminophen (Hydrocodon-Acetaminophn 10-325) 1 Each TABLET Yes 1 Every 8 Hours as needed for Mode rate Pain (4-6) [facility] Lisinopril Lisinopril Yes 2.5 Daily as needed fo r Blood Pressure [facility] Promethazine Hcl Promethazine Hcl Yes 25 Q 6 H Prn [facility] Santyl Santyl Yes 1 Daily [facility] Sertraline Hcl Sertraline Hcl Yes 50 Da justen as needed for Agitation [facility] Zolpidem Tartrate Zolpidem Tartrate Yes 10 Bedt omega [facility] Blood Sugar Diagnostic (One Touch Ultra Test Strips) 1 Each STRIP Blood Sugar Diagnostic (One Touch Ultra Test Strips) 1 Each STRIP 2019-02-07 00:00:00 No [facility] Carisoprodol (Soma) 350 Mg TABLET Carisoprodol (Soma) 350 Mg TAB LET 2018-11-18 00:00:00 No 350 Q8hrs [facility] Cephalexin Cephalexin 2018-11-18 00:00:00 No 750 Thr ee Times A Day [facility] Cephalexin Monohydrate (Keflex) 750 Mg CAPSULE Cephale isma Monohydrate (Keflex) 750 Mg CAPSULE 2018-11-18 00:00:00 No 1000 Every 8 H ours [facility] Ciprofloxacin Hcl (Cipro) 500 Mg TABLET Ciprofloxacin Hcl (C ipro) 500 Mg TABLET 2018-11-18 00:00:00 No 500 Twice A Day [facility] Doxycycline Hyclate Doxycycline Hyclate 2018-11-18 00:00:00 No 100 Every 12 Hours [facility] Doxycycline Hyclate Doxycycline Hyclate 2018-11-18 00:00:00 No 100 Twice A Day [facility] Hydrochlorothiazide Hydrochlorothiazide 2018-11-18 00:00:00 No 50 Daily [facility] Hydrocodone Bit/Acetaminophen (Vicodin Es 7.5-750 Mg T ablet) 1 Each TABLET Hydrocodone Bit/Acetaminophen (Vicodin Es 7.5-750 Mg Tablet) 1 Each TABLET 2018-11-18 00:00:00 No Q6hrs [facility] Metronidazole (Flagyl) 250 Mg TABLET Metronidazole (Flagyl) 250 Mg TABLET 2018-11-18 00:00:00 No 500 Every 8 Hours [facility] Lactulose Lactulose 2017-10-12 00:00:00 No 30 Every 8 Hours as needed for Constipation [facility] Sennosides/Docusate Sodium (Senna Laxative Tablet) 1 E ach TABLET Sennosides/Docusate Sodium (Senna Laxative Tablet) 1 Each TABLET 2017-10-12 00:00:00 No 1 Twice A Day [facility] Triamcinolone Acetonide (Kenalog-10) 10 Mg/1 Ml VIAL T riamcinolone Acetonide (Kenalog-10) 10 Mg/1 Ml VIAL 2012-10-16 00:00:00 No 1 Q6-8WEEKS [facility] Vital Signs Vital Name Observation Time Observation Value Comments Source Body Temperature 2019-10-08 09:03:00 98.7 [degF] [facility] Weight 2019-10-07 00:47:00 175.50 [lb_av] [facility] BMI (Body Mass Index) 2019-10-07 00:47:00 30.1 kg/m2 [facility] Procedures Procedure Date / Time Performed Performing Clinician Selena garcia Computed tomography of brain without radiopaque contrast 2019-09 00:00:00 [facility] Computed tomography of brain without radiopaque contrast 201 12-28-03 00:00:00 FUNMILAYO CALLOWAY [facility] Computed tomography of cervical spine without contrast 02-19 00:00:00 FUNMILAYO CALLOWAY [facility] CT of abdomen and pelvis without contrast 2019-02-19 00:00:00 [facility] X-ray of chest, two views 2019-01-27 00:00:00 SHEY EWING [facility] CT of abdomen and pelvis without contrast 2019-01-27 00:00:00 [facility] Plan of Care Planned Activity Planned Date Details Comments Source Instructions Cellulitis [facility] Instructions Diabetes and Diet [facility] Encounters Start Date/Time End Date/Time Encounter Type Admission Type Attendi [facility] Care Department Encounter ID Source 2019-02-19 04:25:00 2019-02-26 09:53:00 Discharged Inpatient 1 SOLANGE, PARMINDER [facility] [id number] [facility] 2019-02-07 17:41:00 2019-02-13 13:55:00 Discharged Inpatient 1 ESTER PASTOR [facility] [id number] [facility] 2019-01-27 11:45:00 2019-01-29 10:43:00 Discharged Inpatient (obs) 1 SHEY CORONEL [facility] [id number] [facility] 2018-11-17 19:27:00 2018-11-29 14:08:00 Discharged Inpatient 1 PARMINDER NARVAEZ [facility] [id number] [facility] 2018-04-09 16:03:00 2018-04-16 11:03:00 Discharged Inpatient 1 PARMINDER NARVAEZ [facility] [id number] [facility] 2017-10-08 06:02:00 2017-10-13 06:19:00 Discharged Inpatient 1 ALAN NAJERA [facility] [id number] [facility] Results Test Description Test Time Test Comments Results Result Comments Source Capillary blood glucose measurement by glucometer (mas s/volume) 2019-10-08 07:07:00 Test Item Bedside Glucose (test code = 28191-2) 181 70-120 Meter ID: [id number] [facility] leukocytes automated count (number/volume)2019-10-07 05:15:00* Test Item Value Reference Range Interpretation Comments White Blood Count (test code = 6690-2) 17.93 4.8-10.8 [facility] count (number/volume)2019-10-07 05:15:00* Test Item Value Reference Range Interpretation Comments Red Blood Count (test code = 789-8) 3.93 3.6-5.1 [facility] hemoglobin measurement (moles/volume)2019-10-07 05:15:00* Test Item Value Reference Range Interpretation Comments Hemoglobin (test code = 78751-5) 12.8 12.0-16.0 [facility] CenterAutom[facility] blood hematocrit (volume fraction)2019-10-07 05:15:00* Test Item Value Reference Range Interpretation Comments Hematocrit (test code = 4544-3) 38.4 34.2-44.1 [facility] CenterAutom[facility] erythrocyte mean corpuscular kbodac9818-44-98 05:15:00* Test Item Value Reference Range Interpretation Comments Mean Corpuscular Volume (test code = 787-2) 97.7 81-99 [facility] Center[facility] erythrocyte mean corpuscular hemoglobin (mass per erythrocyte)2019-10-07 05:15:00* Test Item Value Reference Range Interpretation Comments Mean Corpuscular Hemoglobin (test code = 785-6) 32.6 28-32 [facility] CenterAutom[facility] erythrocyte mean corpuscular hemoglobin concentration measurement (mass/volume)2019-10-07 05:15:00* Test Item Value Reference Range Interpretation Comments Mean Corpuscular Hemoglobin Concent (test code = 786-4) 33.3 31-35 [facility] CenterRDW VjoRp-Tpy8878-52-21 05:15:00* Test Item Value Reference Range Interpretation Comments Red Cell Distribution Width (test code = 56395-8) 13.7 11.7 -14.4 [facility] CenterAutom[facility] blood platelet count (count/volume)2019-10-07 05:15:00* Test Item Value Reference Range Interpretation Comments Platelet Count (test code = 777-3) 338 140-360 [facility] CenterAutom[facility] blood segmented neutrophil count as percentage of total twdlhhtptp7683-69-28 05:15:00* Test Item Value Reference Range Interpretation Comments Neutrophils (%) (Auto) (test code = 37471-7) 73.2 38.7-80.0 [facility] CenterAutom[facility] blood lymphocyte count as percentage ot total hfvbshcjlt5617-41-06 05:15:00* Test Item Value Reference Range Interpretation Comments Lymphocytes (%) (Auto) (test code = 736-9) 15.6 18.0-39.1 [facility] CenterAutomated blood monocyte count as percentage of total njiaoziwyo1606-10-13 05:15:00* Test Item Value Reference Range Interpretation Comments Monocytes (%) (Auto) (test code = 5905-5) 7.1 4.4-11.3 [facility] CenterAutomated blood eosinophil count as percentage of total soimfasday1118-80-19 05:15:00* Test Item Value Reference Range Interpretation Comments Eosinophils (%) (Auto) (test code = 713-8) 0.3 0.0-6.0 [facility] CenterAutomated blood basophil count as percentage of total psddlxioiv2758-64-23 05:15:00* Test Item Value Reference Range Interpretation Comments Basophils (%) (Auto) (test code = 706-2) 0.6 0.0-1.0 [facility] CenterFluoroscopic procedure less than one hour dklbzxmk2802-23-57 05:15:00* Test Item Value Reference Range Interpretation Comments IM GRANULOCYTES % (test code = IM GRANULOCYTES %) 3.2 0.0- 1.0 [facility] CenterAutom[facility] blood neutrophil count 2019-10-07 05:15:00* Test Item Value Reference Range Interpretation Comments Neutrophils # (Auto) (test code = 751-8) 13.1 2.1-6.9 [facility] Center[facility] lymphocytes count (number/volume) 2019-10-07 05:15:00* Test Item Value Reference Range Interpretation Comments Lymphocytes # (Auto) (test code = 48371-6) 2.8 1.0-3.2 [facility] monocytes automated count (number/volume)2019-10-07 05:15:00* Test Item Value Reference Range Interpretation Comments Monocytes # (Auto) (test code = 742-7) 1.3 0.2-0.8 [facility] CenterAutomated blood eosinophil count 2019-10-07 05:15:00* Test Item Value Reference Range Interpretation Comments Eosinophils # (Auto) (test code = 711-2) 0.1 0.0-0.4 [facility] CenterAutomated blood basophil count (count/volume)2019-10-07 05:15:00* Test Item Value Reference Range Interpretation Comments Basophils # (Auto) (test code = 704-7) 0.1 0.0-0.1 [facility] CenterFluoroscopic procedure less than one hour aktdigep5192-16-64 05:15:00* Test Item Value Reference Range Interpretation Comments Absolute Immature Granulocyte (auto (anita t code = Absolute Immature Granulocyte (auto) 0.57 0-0.1 [facility] Lancastererum or plasma sodium measurement (moles/volume)2019-10-07 05:15:00* Test Item Value Reference Range Interpretation Comments Sodium Level (test code = 2951-2) 136 136-145 [facility] Lancastererum or plasma potassium measurement (moles/volume)2019-10-07 05:15:00* Test Item Value Reference Range Interpretation Comments Potassium Level (test code = 2823-3) 4.3 3.5-5.1 [facility] Lancastererum or plasma chloride measurement (moles/volume)2019-10-07 05:15:00* Test Item Value Reference Range Interpretation Comments Chloride Level (test code = 2075-0) 101 98-107 [facility] Lancastererum or plasma carbon dioxide, total measurement (moles/volume)2019-10-07 05:15:00* Test Item Value Reference Range Interpretation Comments Carbon Dioxide Level (test code = 2028-9) 25 22-29 [facility] Lancastererum or plasma anion emn3134-77-70 05:15:00* Test Item Value Reference Range Interpretation Comments Anion Gap (test code = 68454-4) 14.3 8-16 [facility] Lancastererum or plasma urea nitrogen measurement (mass/volume)2019-10-07 05:15:00* Test Item Value Reference Range Interpretation Comments Blood Urea Nitrogen (test code = 3094-0) 22 7-26 [facility] Lancastererum or plasma creatinine measurement (mass/volume)2019-10-07 05:15:00* Test Item Value Reference Range Interpretation Comments Creatinine (test code = 2160-0) 0.99 0.57-1.11 [facility] Lancastererum or plasma urea nitrogen/creatinine mass fqffe6575-94-28 05:15:00* Test Item Value Reference Range Interpretation Comments BUN/Creatinine Ratio (test code = 3097-3) 22 6-25 [facility] CenterEstimated glomerular filtration rate (GFR) ukpehxjiginun0141-94-55 05:15:00* Test Item Value Reference Range Interpretation Comments Estimat Glomerular Filtration Rate (test code = 986542530) 60 >60 Ranges were taken from the National Kidney Disease Education Program and the [facility] Kid[facility] Foundation literature.Reference ranges:60 or greater: Zazmjd80-69 ( for 3 consecutive months): Chronic kidney disease 15 or less: Kidney failureHendrick Medical CenterGlucose itfloyfgndf0175-24-74 05:15:00* Test Item Value Reference Range Interpretation Comments Glucose Level (test code = JGF5529) 227 74-118 [facility] Lancastererum or plasma calcium measurement (mass/volume)2019-10-07 05:15:00* Test Item Value Reference Range Interpretation Comments Calcium Level (test code = 02145-0) 8.9 8.4-10.2 [facility] CenterCHEST XRAY LINE GTNPYZKIL7766-77-25 11:27:00 [facility] [address] [address] Patient Name: ROSA ISELA BENITEZ MR #: [id number] : 1970 Age/Sex: 49/F Req #: [id number] Adm Physician: PARMINDER NARVAEZ MD Ordered by: PARMINDER NARVAEZ MD Report #: [id number] Location: [facility] Room/Bed: [facility] Procedure: [id number] DX/CHEST X RAY LINE PLACEMENT Exam Date: [...] Bilirubin (test code = 1975-2) 0.4 0.2-1.2 [facility] CenterFluoroscopic procedure less than one hour khkfooko3425-62-23 05:00:00* Test Item Value Reference Range Interpretation Comments Aspartate Amino Transf (AST/SGOT) (test code = Aspartate Amino Transf (AST/SGOT)) 30 5-34 [facility] Lancastererum or plasma alanine aminotransferase measurement (enzymatic activity/volume)2019-10-02 05:00:00* Test Item Value Reference Range Interpretation Comments Alanine Aminotransferase (ALT/SGPT) (test code = 1742-6) 59 0-55 [facility] Lancastererum or plasma protein measurement (mass/volume)2019-10-02 05:00:00* Test Item Value Reference Range Interpretation Comments Total Protein (test code = 2885-2) 6.4 6.5-8.1 [facility] Lancastererum or plasma albumin measurement (mass/volume)2019-10-02 05:00:00* Test Item Value Reference Range Interpretation Comments Albumin (test code = 1751-7) 3.0 3.5-5.0 [facility] CenterPlasma globulin measurement (mass/volume) 2019-10-02 05:00:00* Test Item Value Reference Range Interpretation Comments Globulin (test code = 33826-4) 3.4 2.3-3.5 [facility] Lancastererum or plasma albumin/globulin mass medll5093-40-98 05:00:00* Test Item Value Reference Range Interpretation Comments Albumin/Globulin Ratio (test code = 1759-0) 0.9 0.8-2.0 [facility] Lancastererum or plasma alkaline phosphatase measurement (enzymatic activity/volume)2019-10-02 05:00:00* Test Item Value Reference Range Interpretation Comments Alkaline Phosphatase (test code = 6768-6) 101 40-[address] [facility] [facility] procedure less than one hour hjiyhcxr7968-98-66 09:09:00* Test Item Value Reference Range Interpretation [...] complexity tests.Testing performed by [facility] [id number] [place], [place] [phone] Director: Jered Escobedo M.D.CLIA # [id number] [facility] lhncciv5110-26-07 07:55:00* Test Item Value Reference Range Interpretation Comments Blood Culture (test code = 05963294) NO GROWTH AFTER 5 DAYS, FINAL REPORT [facility]IN [id number] 06:53:[address] [address] Patient Name: ROSA ISELA BENITEZ MR #: [id number] : 1970 Age/Sex: 49/F Req #: [id number] Adm Physician: PARMINDER NARVAEZ MD Ordered by: FUNMILAYO CALLOWAY MD Report #: [id number] Location: [facility] Room/Bed: [address] [address] Procedure: [id number] CT /CT BRAIN WO Exam Date: 10/01/19 [...] MD Fluoroscopic procedure less than one hour fyfhnjsq9534-49-73 05:50:00* Test Item Value Reference Range Interpretation Comments Differential Total Cells Counted (test code = Differgeoff tial Total Cells Counted) 100 [facility] blood neutrophils/100 leukocytes 2019-10-01 05:50:00* Test Item Value Reference Range Interpretation Comments Neutrophils % (Manual) (test code = 68500-2) 70 40-74 [facility] blood lymphocytes/100 leukocytes 2019-10-01 05:50:00* Test Item Value Reference Range Interpretation Comments Lymphocytes % (Manual) (test code = 737-7) 20 19-48 [facility] blood monocytes/100 leukocytes 2019-10-01 05:50:00* Test Item Value Reference Range Interpretation Comments Monocytes % (Manual) (test code = 744-3) 9 3.4-9.0 [facility] blood eosinophil count as percentage of total npvabqkaka1805-87-40 05:50:00* Test Item Value Reference Range Interpretation Comments Eosinophils % (Manual) (test code = 714-6) 1 0-7 [facility] CenterBlood platelets count by estimate (number/volume)2019-10-01 05:50:00* Test Item Value Reference Range Interpretation Comments Platelet Estimate (test code = 45898-5) ADEQUATE [facility] CenterPlatelet ozvdlpzqby3230-38-40 05:50:00* Test Item Value Reference Range Interpretation Comments Platelet Morphology Comment (test code = 64799-0) NORMAL [facility] CenterBlood hypochromia detection by light sufjmoyrmf9919-01-08 05:50:00* Test Item Value Reference Range Interpretation Comments Hypochromasia (test code = 728-6) SLIGHT [facility] CenterRBC pddewxroqi9336-84-18 05:50:00* Test Item Value Reference Range Interpretation Comments Red Cell Morphology Comment (test code = 6742-1) NORMAL [facility] CenterUrine color xqfomlxbqqies0827-75-29 05:50:00* Test Item Value Reference Range Interpretation Comments Urine Color (test code = 5778-6) YELLOW YELLOW [facility] CenterUrine oahkobm9871-64-02 05:50:00* Test Item Value Reference Range Interpretation Comments Urine Clarity (test code = 74194-4) CLEAR CLEAR [facility] gravity of Urine by Test strip 2019-10-01 05:50:00* Test Item Value Reference Range Interpretation Comments Urine Specific [place] (test code = 5811-5) 1.020 1.010-1.02 5 [facility] CenterU[facility] pH measurement by automated test egrsv4426-98-03 05:50:00* Test Item Value Reference Range Interpretation Comments Urine pH (test code = 08511-4) 6 5-7 [facility] CenterU[facility] leukocyte esterase detection by rhqbitwz1578-95-80 05:50:00* Test Item Value Reference Range Interpretation Comments Urine Leukocyte Esterase (test code = 5799-2) NEGATIVE NEGATIVE [facility] CenterUrine nitrite wqtafhpcd6303-74-27 05:50:00* Test Item Value Reference Range Interpretation Comments Urine Nitrite (test code = 94767-7) NEGATIVE NEGATIVE [facility] CenterU[facility] protein measurement by test strip (mass/volume)2019-10-01 05:50:00* Test Item Value Reference Range Interpretation Comments Urine Protein (test code = 5804-0) NEGATIVE NEGATIVE [facility] CenterU[facility] glucose bzvpypnmz0575-27-42 05:50:00* Test Item Value Reference Range Interpretation Comments Urine Glucose (UA) (test code = 2349-9) NEGATIVE NEGATIVE [facility] CenterUrine ketones detection by automated test lhrxo3229-89-92 05:50:00* Test Item Value Reference Range Interpretation Comments Urine Ketones (test code = 24999-0) NEGATIVE NEGATIVE [facility] CenterUrine urobilinogen measurement by test strip (mass/volume)2019-10-01 05:50:00* Test Item Value Reference Range Interpretation Comments Urine Urobilinogen (test code = 31137-1) 0.2 0.2-1 [facility] CenterU[facility] total bilirubin measurement (mass/volume)2019-10-01 05:50:00* Test Item Value Reference Range Interpretation Comments Urine Bilirubin (test code = 1978-6) NEGATIVE NEGATIVE [facility] CenterU[facility] erythrocytes kscopiidb4900-85-99 05:50:00* Test Item Value Reference Range Interpretation Comments Urine Blood (test code = 68876-9) TRACE NEGATIVE [facility] CenterAutomated urine sediment leukocyte count by microscopy (number/high power field)2019-10-01 05:50:00* Test Item Value Reference Range Interpretation Comments Urine WBC (test code = 5821-4) 0-5 0-5 [facility] CenterErythrocytes detection in urine sediment by light xzgwxrrwuf8032-02-86 05:50:00* Test Item Value Reference Range Interpretation Comments Urine RBC (test code = 23282-9) 0-5 0-5 [facility] CenterBacteria detection in urine sediment by light skecimbumg1717-29-44 05:50:00* Test Item Value Reference Range Interpretation Comments Urine Bacteria (test code = 09793-5) FEW NONE [facility] CenterEpithelial cells detection in urine sediment by light svxzrtdvrq9371-28-63 05:50:00* Test Item Value Reference Range Interpretation Comments Urine Epithelial Cells (test code = 76414-4) FEW NONE [facility] CenterYeast detection in urine sediment by light cfeiwpulve9330-04-13 05:50:00* Test Item Value Reference Range Interpretation Comments Urine Yeast (test code = 91100-6) RARE NONE [facility] CenterBedside Tvxsspf8431-31-26 08:11:00* Test Item Value Reference Range Interpretation Comments Bedside Glucose (test code = 26443-6) 147 70-120 H Meter ID: [id number] [facility] WestPlatelet Morphology Zlebirb3698-41-84 08:00:00* Test Item Value Reference Range Interpretation Comments Platelet Morphology Comment (test code = 64690-8) NO EDTA PLT CLUMP S SEEN [facility] Lancasterodium Igcme9975-96-34 07:25:00* Test Item Value Reference Range Interpretation Comments Sodium Level (test code = 2951-2) 139 136-145 [facility] CenterPotassium Cbwfm7714-79-36 07:25:00* Test Item Value Reference Range Interpretation Comments Potassium Level (test code = 2823-3) 4.3 3.5-5.1 [facility] CenterChloride Ayvbi3440-67-89 07:25:00* Test Item Value Reference Range Interpretation Comments Chloride Level (test code = 2075-0) 108 98-107 H [facility] CenterCarbon Dioxide Oxvut2891-74-74 07:25:00* Test Item Value Reference Range Interpretation Comments Carbon Dioxide Level (test code = 2028-9) 21 22-29 L [facility] CenterAnion Ndf5452-41-36 07:25:00* Test Item Value Reference Range Interpretation Comments Anion Gap (test code = 14920-9) 14.3 8-16 [facility] CenterBlood Urea Rpugfttz5397-19-89 07:25:00* Test Item Value Reference Range Interpretation Comments Blood Urea Nitrogen (test code = 3094-0) 8 7-26 [facility] CenterCreatinine2019-11-09 07:25:00* Test Item Value Reference Range Interpretation Comments Creatinine (test code = 2160-0) 0.67 0.57-1.11 [facility] CenterBUN/Creatinine Rhtgh9890-09-50 07:25:00* Test Item Value Reference Range Interpretation Comments BUN/Creatinine Ratio (test code = 3097-3) 12 6-25 [facility] CenterEstimat Glomerular Filtration Rate 2019-02-24 07:25:00* Test Item Value Reference Range Interpretation Comments Estimat Glomerular Filtration Rate (test code = 785581202) > 60 >60 Ranges were taken from the National Kidney Disease Education Program and the [facility] Kid[facility] Foundation literature.Reference ranges:60 or greater: Txqqib18-46 ( for 3 consecutive months): Chronic kidney disease 15 or less: Kidney failureCHI Nacogdoches Memorial HospitalGlucose Ttjep5751-85-13 07:25:00* Test Item Value Reference Range Interpretation Comments Glucose Level (test code = VKA9114) 174 74-118 H [facility] CenterCalcium Ftbbd4504-79-68 07:25:00* Test Item Value Reference Range Interpretation Comments Calcium Level (test code = 73219-3) 9.0 8.4-10.2 [facility] CenterMagnesium Cxhbc4341-89-52 07:25:00* Test Item Value Reference Range Interpretation Comments Magnesium Level (test code = 67253-2) 1.8 1.3-2.1 [facility] CenterTotal Cvxngswan6569-63-89 07:25:00* Test Item Value Reference Range Interpretation Comments Total Bilirubin (test code = 1975-2) 0.4 0.2-1.2 [facility] CenterAspartate Amino Transf (AST/SGOT) 2019-02-24 07:25:00* Test Item Value Reference Range Interpretation Comments Aspartate Amino Transf (AST/SGOT) (test code = Aspartate Amino Transf (AST/SGOT)) 19 5-34 [facility] CenterAlanine Aminotransferase (ALT/SGPT) 2019-02-24 07:25:00* Test Item Value Reference Range Interpretation Comments Alanine Aminotransferase (ALT/SGPT) (test code = 1742-6) 31 0-55 [facility] CenterTotal Bchhhpn7864-65-12 07:25:00* Test Item Value Reference Range Interpretation Comments Total Protein (test code = 2885-2) 6.1 6.5-8.1 L [facility] CenterAlbumin2019-11-09 07:25:00* Test Item Value Reference Range Interpretation Comments Albumin (test code = 1751-7) 2.2 3.5-5.0 L [facility] CenterGlobulin2019-11-09 07:25:00* Test Item Value Reference Range Interpretation Comments Globulin (test code = 55830-2) 3.9 2.3-3.5 H [facility] CenterAlbumin/Globulin Xiegd0353-77-39 07:25:00 * Test Item Value Reference Range Interpretation Comments Albumin/Globulin Ratio (test code = 1759-0) 0.6 0.8-2.0 L [facility] CenterAlkaline Uyhbsjhfmul2167-78-86 07:25:00* Test Item Value Reference Range Interpretation Comments Alkaline Phosphatase (test code = 6768-6) 233 40-150 H [facility] CenterWhite Blood Tigdn7716-16-78 07:13:00* Test Item Value Reference Range Interpretation Comments White Blood Count (test code = 6690-2) 13.13 4.8-10.8 H [facility] CenterRed Blood Fcsda6630-59-57 07:13:00* Test Item Value Reference Range Interpretation Comments Red Blood Count (test code = 789-8) 3.90 3.6-5.1 [facility] CenterHemoglobin2019-11-09 07:13:00* Test Item Value Reference Range Interpretation Comments Hemoglobin (test code = 16006-7) 12.5 12.0-16.0 [facility] CenterHematocrit2019-11-09 07:13:00* Test Item Value Reference Range Interpretation Comments Hematocrit (test code = 4544-3) 38.5 34.2-44.1 [facility] CenterMean Corpuscular Uxghoi7637-77-63 07:13:00* Test Item Value Reference Range Interpretation Comments Mean Corpuscular Volume (test code = 787-2) 98.7 81-99 [facility] CenterMean Corpuscular Ybbnmvswug4535-08-93 07:13:00* Test Item Value Reference Range Interpretation Comments Mean Corpuscular Hemoglobin (test code = 785-6) 32.1 28-32 H [facility] CenterMean Corpuscular Hemoglobin Concent 2019-02-24 07:13:00* Test Item Value Reference Range Interpretation Comments Mean Corpuscular Hemoglobin Concent (test code = 786-4) 32.5 31-35 [facility] CenterRed Cell Distribution Pvcql2242-01-05 07:13:00* Test Item Value Reference Range Interpretation Comments Red Cell Distribution Width (test code = 10792-3) 14.8 11.7 -14.4 H [facility] CenterPlatelet Zgwcx9337-53-04 07:13:00* Test Item Value Reference Range Interpretation Comments Platelet Count (test code = 777-3) 210 140-360 [facility] CenterNeutrophils (%) (Auto)2019-02-24 07:13:00 * Test Item Value Reference Range Interpretation Comments Neutrophils (%) (Auto) (test code = 19950-5) 73.6 38.7-80.0 [facility] CenterLymphocytes (%) (Auto)2019-02-24 07:13:00 * Test Item Value Reference Range Interpretation Comments Lymphocytes (%) (Auto) (test code = 736-9) 17.6 18.0-39.1 L [facility] CenterMonocytes (%) (Auto)2019-02-24 07:13:00* Test Item Value Reference Range Interpretation Comments Monocytes (%) (Auto) (test code = 5905-5) 4.4 4.4-11.3 [facility] CenterEosinophils (%) (Auto)2019-02-24 07:13:00 * Test Item Value Reference Range Interpretation Comments Eosinophils (%) (Auto) (test code = 713-8) 0.9 0.0-6.0 [facility] CenterBasophils (%) (Auto)2019-02-24 07:13:00* Test Item Value Reference Range Interpretation Comments Basophils (%) (Auto) (test code = 706-2) 0.5 0.0-1.0 [facility] CenterIM GRANULOCYTES %2019-02-24 07:13:00* Test Item Value Reference Range Interpretation Comments IM GRANULOCYTES % (test code = IM GRANULOCYTES %) 3.0 0.0- 1.0 H [facility] CenterNeutrophils # (Auto)2019-02-24 07:13:00* Test Item Value Reference Range Interpretation Comments Neutrophils # (Auto) (test code = 751-8) 9.7 2.1-6.9 H [facility] CenterLymphocytes # (Auto)2019-02-24 07:13:00* Test Item Value Reference Range Interpretation Comments Lymphocytes # (Auto) (test code = 49369-9) 2.3 1.0-3.2 [facility] CenterMonocytes # (Auto)2019-02-24 07:13:00* Test Item Value Reference Range Interpretation Comments Monocytes # (Auto) (test code = 742-7) 0.6 0.2-0.8 [facility] CenterEosinophils # (Auto)2019-02-24 07:13:00* Test Item Value Reference Range Interpretation Comments Eosinophils # (Auto) (test code = 711-2) 0.1 0.0-0.4 [facility] CenterBasophils # (Auto)2019-02-24 07:13:00* Test Item Value Reference Range Interpretation Comments Basophils # (Auto) (test code = 704-7) 0.1 0.0-0.1 [facility] CenterAbsolute Immature Granulocyte (auto 2019-02-24 07:13:00* Test Item Value Reference Range Interpretation Comments Absolute Immature Granulocyte (auto (anita t code = Absolute Immature Granulocyte (auto) 0.39 0-0.1 [facility] Lancastererum or plasma magnesium measurement (mass/volume)2019-02-24 05:30:00* Test Item Value Reference Range Interpretation Comments Magnesium Level (test code = 84645-2) 1.8 1.3-2.1 [facility] CenterBlood Zmwwtdp8892-82-96 03:54:00* Test Item Value Reference Range Interpretation Comments Blood Culture (test code = 91113005) NO GROWTH AFTER 5 DAYS, FINAL REPORT [facility] ([facility])MIN 7QBYQT2942-20-08 08:50:00 [facility] [address] [address] Patient Name: ROSA ISELA BENITEZ MR #: [id number] : 1970 Age/Sex: 49/F Req #: [id number] Adm Physician: PARMINDER NARVAEZ MD Ordered by: PARMINDER NARVAEZ MD Report #: [id number] Location: MED/SURG3 Room/Bed: [facility] Procedure: 7384-4618 DX/SINUSES (PARANASAL)MIN 3VIEWS Exam Date: 02/23/19 Exam [...] with fluid or mucosal thickening. Signed by: Diapk Talbot MD on 02/23/2019 8:51 AM Dictated By: DIPAK TALBOT MD 08 COPY TO: PARMINDER NARVAEZ C-Reactive Vkxcanm9371-62-52 21:19:00* Test Item Value Reference Range Interpretation Comments C-Reactive Protein (test code = 1988-5) 589 0-10 H Results confirmed ondilution.Performed at: [facility] [address] [facility], [place], [place] [id number] Director: Prasanna Mishra MD, Phone: [phone] Medical CenterUrine Vuwnvnk2578-13-27 08:02:00* Test Item Value Reference Range Interpretation Comments Urine Culture (test code = 630-4) No Result Data Provided [facility] CenterErythrocyte Sedimentation Dglt1908-89-19 09:56:00* Test Item Value Reference Range Interpretation Comments Erythrocyte Sedimentation Rate (test code = 4537-7) 80 0- 20 H [facility] CenterDifferential Total Cells Counted 2019-02-20 08:47:00* Test Item Value Reference Range Interpretation Comments Differential Total Cells Counted (test code = Zain tial Total Cells Counted) 100 [facility] CenterNeutrophils % (Manual)2019-02-20 08:47:00 * Test Item Value Reference Range Interpretation Comments Neutrophils % (Manual) (test code = 96749-2) 74 40-74 [facility] CenterBand Neutrophils %2019-02-20 08:47:00* Test Item Value Reference Range Interpretation Comments Band Neutrophils % (test code = 764-1) 16 [facility] CenterLymphocytes % (Manual)2019-02-20 08:47:00 * Test Item Value Reference Range Interpretation Comments Lymphocytes % (Manual) (test code = 737-7) 3 19-48 L [facility] CenterMonocytes % (Manual)2019-02-20 08:47:00* Test Item Value Reference Range Interpretation Comments Monocytes % (Manual) (test code = 744-3) 7 3.4-9.0 [facility] CenterPlatelet Infugrfd1608-25-35 08:47:00* Test Item Value Reference Range Interpretation Comments Platelet Estimate (test code = 83283-5) SLIGHTLY DECREASED [facility] CenterPoikilocytosis2019-11-05 08:47:00* Test Item Value Reference Range Interpretation Comments Poikilocytosis (test code = 779-9) SLIGHT [facility] CenterAnisocytosis2019-11-05 08:47:00* Test Item Value Reference Range Interpretation Comments Anisocytosis (test code = 702-1) SLIGHT [facility] CenterToxic Aafoemguuqn8765-23-42 08:47:00* Test Item Value Reference Range Interpretation Comments Toxic Granulation (test code = 803-7) MODERATE [facility] CenterRed Cell Morphology Cbudywo1955-34-69 08:47:00* Test Item Value Reference Range Interpretation Comments Red Cell Morphology Comment (test code = 6742-1) NORMAL [facility] CenterErythrocyte sedimentation rate by Westergren cfllsx5195-53-47 07:40:00* Test Item Value Reference Range Interpretation Comments Erythrocyte Sedimentation Rate (test code = 4537-7) 80 0- 20 [facility] Lancastererum or plasma C reactive protein measurement (mass/volume)2019-02-20 07:40:00* Test Item Value Reference Range Interpretation Comments C-Reactive Protein (test code = 1988-5) 589 0-10 Results confirmed ondilution.Performed at: [employer] [facility] [address] [id number] Director: Prasanna Mishra MD, Phone: [phone] Medical CenterManual blood band neutrophils form/100 ygpkomzdws1292-83-94 04:55:00* Test Item Value Reference Range Interpretation Comments Band Neutrophils % (test code = 764-1) 16 [facility] CenterBlood poikilocytosis detection by light duhlesdqxs9362-68-78 04:55:00* Test Item Value Reference Range Interpretation Comments Poikilocytosis (test code = 779-9) SLIGHT [facility] CenterBlood anisocytosis detection by light cokjgwfiny8114-01-71 04:55:00* Test Item Value Reference Range Interpretation Comments Anisocytosis (test code = 702-1) SLIGHT [facility] CenterBlood toxic granules detection by light vqwkordxnk3207-82-76 04:55:00* Test Item Value Reference Range Interpretation Comments Toxic Granulation (test code = 803-7) MODERATE [facility] CenterCT ABDOMEN/PELVIS II4724-16-51 20:27:00 [facility] [address] [address] Patient Name: ROSA ISELA BENITEZ MR #: [id number] : Age/Sex: 49/F Req #: [id number] Adm Physician: PARMINDER NARVAEZ MD Ordered by: KATIE BOWEN MD Report #: [id number] Location: [facility]/SURG3 Room/Bed: [facility] Procedure: 9937-0158 CT/CT ABDOMEN/PELVIS WO Exam Date: 02/19/19 Exam Ti me: 1999 REPORT STATUS: Signed C T Abdomen and Pelvis without contrast INDICATION: Rule out infection, R/O INFECTION [id number] TECHNIQUE: Thin collimation axial images obtained [...] COPY TO: KATIE BOWEN MD Lactic Acid Hysfc4988-16-27 08:35:00* Test Item Value Reference Range Interpretation Comments Lactic Acid Level (test code = Lactic Acid Level) 3.6 0.5- 2.0 HH Results repeated and called to MAGEN MOON RN at 0834 on 02/19/19 by Kari Patton. Read back and verified.[facility] CenterFluoroscopic procedure less than one hour vhudnedi9711-27-24 07:10:00* Test Item Value Reference Range Interpretation Comments Lactic Acid Level (test code = Lactic Acid Level) 3.6 0.5- 2.0 Results repeated and called to MAGEN MOON RN at 0834 on 02/19/19 by Kari Patton. Read back and verified.[facility] CenterFOREARM LEFT 2 YHSP1611-67-40 03:17:00 [facility] [address] [address] Patient Name: ROSA ISELA BENITEZ MR #: [id number] : 1970 Age/Sex: 49/F Req #: [id number] Adm Physician: Ordered by: FUNMILAYO CALLOWAY MD Report #: [id number] Location: ER Room/Bed: Procedure: 1 104-0019 DX/FOREARM [...] MD FOREARM RIGHT 2 VIEW 2019-02-19 03:17:[address] [address] Patient Name: ROSA ISELA BENITEZ MR #: [id number] : 1970 Age/Sex: 49/F Req #: [id number] Adm Physician: Ordered by: FUNMILAYO CALLOWAY MD Report #: [id number] Location: ER Room/Bed: Procedure: 1 104-0018 DX/FOREARM [...] CALLOWAY MD CHEST SINGLE (PORTABLE) 2019-02-19 03:14:00 [id number] [address] Patient Name: ROSA ISELA BENITEZ MR #: [id number] : 1970 Age/Sex: 49/F Req #: [id number] Adm Physician: Ordered by: FUNMILAYO CALLOWAY MD Report #: [id number] Location: ER Room/Bed: Procedure: 1 104-0021 DX/CHEST [...] COPY TO: FUNMILAYO CALLOWAY 3 + VIEWS SCGGW3278-07-90 03:13:00 [address], [place], [place] [address] Patient Name: ROSA ISELA BENITEZ MR #: [id number] : 1970 Age/Sex: 49/F Req #: [id number] Adm Physician: Ordered by: FUNMILAYO CALLOWAY MD Report #: [id number] Location: ER Room/Bed: Procedure: 1 104-0017 DX/ANKLE [...] TO: FUNMILAYO CALLOWAY MD KNEE RIGHT THREE FPPEE3470-29-56 03:11:[address] [address] Patient Name: ROSA ISELA BENITEZ MR #: [id number] : Age/Sex: 49/F Req #: [id number] Adm Physician: Ordered by: FUNMILAYO CALLOWAY MD Report #: [id number] Location: ER Room/Bed: Procedure: 1 104-0016 DX/KNEE [...] on 02/19/19312 COPY TO: FUNMILAYO CALLOWAY MD [facility] BILAT 3-4VWS (+/- PELVIS) 2019-02-19 03:09:[address] [address] Patient Name: ROSA ISELA BENITEZ MR #: [id number] : 1970 Age/Sex: 49/F Req #: [id number] Adm Physician: Ordered by: FUNMILAYO CALLOWAY MD Report #: [id number] Location: ER Room/Bed: Procedure: 1 104-0020 DX/HIPS [...] 02/19/19310 COPY TO: FUNMILAYO CALLOWAY Bacterial urine fgxskdy4391-67-42 02:55:00* Test Item Value Reference Range Interpretation Comments Urine Culture (test code = 630-4) KLEBSIELLA PNEUMONIAE [facility] HospitalCT CERVICAL SPINE MI7829-95-64 02:45:00 [facility] [address] [place] [address] Patient Name: ROSA ISELA BENITEZ MR #: [id number] : Age/Sex: 49/F Req #: [id number] Adm Physician: Ordered by: FUNMILAYO CALLOWAY MD Report #: [id number] Location: ER Room/Bed: Procedure: 1 104-0003 CT/CT [...] SMALLS MD Electro nically Signed By: ARETHA MSALLS MD on 02/19/19248 Transcribed By: BRENDON on 02/19/19248 COPY TO: FUNMILAYO CALLOWAY MD CT BRAIN WO 2019-02-19 02:42:[address] [address] Patient Name: ROSA ISELA BENITEZ MR #: [id number] : 1970 Age/Sex: 49/F Req #: [id number] Adm Physician: Ordered by: FUNMILAYO CALLOWAY MD Report #: [id number] Location: ER Room/Bed: Procedure: 1 104-0002 CT/CT [...] COPY TO: FUNMILAYO CALLOWAY MD Creatine Kinase EE1927-65-32 02:23:00* Test Item Value Reference Range Interpretation Comments Creatine Kinase MB (test code = 39931-0) 0.60 0-5.0 [facility] P5243-78-93 02:23:00* Test Item Value Reference Range Interpretation Comments Troponin I (test code = AXX8739) < 0.001 0-0.300 [facility] CenterCreatine Vycjyr6238-62-26 02:11:00* Test Item Value Reference Range Interpretation Comments Creatine Kinase (test code = 2157-6) 17 29-168 L [facility] CenterActivated Partial Thromboplast Time 2019-02-19 02:02:00* Test Item Value Reference Range Interpretation Comments Activated Partial Thromboplast Time (test code = 96711-2) 22.8 23.8-35.5 L [facility] CenterProthrombin Apfh1373-41-68 02:01:00* Test Item Value Reference Range Interpretation Comments Prothrombin Time (test code = 5902-2) 11.9 11.9-14.5 [facility] CenterProthromb Time International Ratio 2019-02-19 02:01:00* Test Item Value Reference Range Interpretation Comments Prothromb Time International Ratio (test code = 6301-6) 0.83 Oral Anticoagulant Therapy INR Values:1. Low Intensity Therapy 1.5 - 2.02 . Moderate Intensity Therapy 2.0 - 3.03. High Intensity Therapy(1) 2.5 - 3. 54. High Intensity Therapy(2) 3.0 - 4.05. Panic Value INR > 5.0 [facility] CenterUrine Opiates Udmkhi4523-64-93 02:01:00* Test Item Value Reference Range Interpretation Comments Urine Opiates Screen (test code = 54977-9) POSITIVE NEGATIVE H ALL TESTS PERFORMED MANUALLY ON iPrint TOX/SEE TEST This test provides only a sc reen. Positive results should be repeated by a confirmatory test. PO SITIVE TCAHendrick Medical CenterUrine Barbiturates Screen 2019-02-19 02:01:00* Test Item Value Reference Range Interpretation Comments Urine Barbiturates Screen (test code = 513789659) NEGATIVE NEGA TIVE [facility] CenterUrine Phencyclidine Mchpuu6205-94-94 02:01:00* Test Item Value Reference Range Interpretation Comments Urine Phencyclidine Screen (test code = 17673-6) NEGATIVE NEGAT DAMIEN [facility] CenterUrine Amphetamines Fofdug8952-94-73 02:01:00* Test Item Value Reference Range Interpretation Comments Urine Amphetamines Screen (test code = 15326-1) NEGATIVE NEGATI VE [facility] CenterUrine Methamphetamines Idwuee7007-05-81 02:01:00* Test Item Value Reference Range Interpretation Comments Urine Methamphetamines Screen (test code = Urine Metha mphetamines Screen) NEGATIVE NEGATIVE [facility] CenterUrine Benzodiazepines Ucldfs8980-80-64 02:01:00* Test Item Value Reference Range Interpretation Comments Urine Benzodiazepines Screen (test code = 16418-6) POSITIVE NEG ATIVE H This test provides only a screen. Positive results should be repeated by a confi rmatory test.[facility] CenterUrine Cocaine Screen 2019-02-19 02:01:00* Test Item Value Reference Range Interpretation Comments Urine Cocaine Screen (test code = 3398-5) NEGATIVE NEGATIVE [facility] Cannabinoids Jopxei0846-45-73 02:01:00* Test Item Value Reference Range Interpretation Comments Urine Cannabinoids Screen (test code = 71980-1) NEGATIVE NEGATI VE THESE RESULTS ARE FOR MEDICAL TREATMENT ONLYTHIS REPORT CONTAINS UNCONFIR MED SCREENING RESULTS*POSITIVE RESULTS WILL BE CONFIRMED BY REFERENCE LAB UPON R EQUEST CUT-OFFDRUG CLASS CONCENTRATION ng/mLAmphetamines 1000Methamphetamines 1000Cocaine 300Opiate 300Phencyc lidine 25Cannabinoid 50Barbiturates 300Benzodiazepine 300Methadone 300[facility] HospitalUrine Methadone Rxqmdk3268-80-83 02:01:00* Test Item Value Reference Range Interpretation Comments Urine Methadone Screen (test code = 36694-8) POSITIVE NEGATIVE H This test provides only a screen. Positive results should be repeated by a confi rmatory test.THESE RESULTS ARE FOR MEDICAL TREATMENT ONLYTHIS REPORT CONT AINS UNCONFIRMED SCREENING RESULTS*POSITIVE RESULTS WILL BE CONFIRMED BY REFEREN CE LAB UPON REQUEST CUT-OFFDRUG CLASS CON CENTRATION ng/mLAmphetamines 1000Methamp hetamines 1000Cocaine Metabolite 300Opiate 300Phencyclidine 25Cannabinoid 50Barbiturates 300Benzodiazepine 300Methadone 30 0[facility] CenterUrine IQO3114-53-35 02:01:00* Test Item Value Reference Range Interpretation Comments Urine WBC (test code = 5821-4) >50 0-5 H [facility] CenterUrine GMN8261-72-40 02:01:00* Test Item Value Reference Range Interpretation Comments Urine RBC (test code = 50227-8) 6-10 0-5 H [facility] CenterUrine Naxutuoj6080-88-09 02:01:00* Test Item Value Reference Range Interpretation Comments Urine Bacteria (test code = 25584-2) MANY NONE H [facility] Epithelial Fgear6916-32-48 02:01:00 * Test Item Value Reference Range Interpretation Comments Urine Epithelial Cells (test code = 40964-8) FEW NONE [facility] Transitional Epithelial Cells 2019-02-19 02:01:00* Test Item Value Reference Range Interpretation Comments Urine Transitional Epithelial Cells (test code = 8249-5) FEW NONE H [facility] CenterUrine Coarse Granular Hzsfy7874-78-08 02:01:00* Test Item Value Reference Range Interpretation Comments Urine Coarse Granular Casts (test code = 38814-9) 1-5 >0 H [facility] CenterUrine Jlagy0974-56-25 01:58:00* Test Item Value Reference Range Interpretation Comments Urine Color (test code = 5778-6) ORANGE YELLOW H [facility] CenterUrine Oyxpoat5894-38-66 01:58:00* Test Item Value Reference Range Interpretation Comments Urine Clarity (test code = 90780-6) CLOUDY CLEAR H [facility] CenterUrine Specific Fdqjcrr9699-11-52 01:58:00 * Test Item Value Reference Range Interpretation Comments Urine Specific [place] (test code = 5811-5) >=1.030 1.010-1.02 5 [facility] CenterUrine lK5334-79-04 01:58:00* Test Item Value Reference Range Interpretation Comments Urine pH (test code = 87403-7) 6 5-7 [facility] CenterUrine Leukocyte Lbvxrbaw5552-28-51 01:58:00* Test Item Value Reference Range Interpretation Comments Urine Leukocyte Esterase (test code = 34445-8) SMALL NEGATIV E [facility] Frcmgza1576-86-99 01:58:00* Test Item Value Reference Range Interpretation Comments Urine Nitrite (test code = 35328-3) POSITIVE NEGATIVE H [facility] CenterUrine Qelaohj1918-47-77 01:58:00* Test Item Value Reference Range Interpretation Comments Urine Protein (test code = 36450-5) 1+ NEGATIVE H [facility] Glucose (UA)2019-02-19 01:58:00* Test Item Value Reference Range Interpretation Comments Urine Glucose (UA) (test code = 92075-1) 1+ NEGATIVE [facility] Shrcevn5897-83-45 01:58:00* Test Item Value Reference Range Interpretation Comments Urine Ketones (test code = 31787-5) TRACE NEGATIVE [facility] Vrndrqlddkfm7005-64-68 01:58:00* Test Item Value Reference Range Interpretation Comments Urine Urobilinogen (test code = 56262-9) 1 0.2-1 [facility] Zodjzecmr4875-26-03 01:58:00* Test Item Value Reference Range Interpretation Comments Urine Bilirubin (test code = 1977-8) SMALL NEGATIVE [facility] Efhkq2977-29-66 01:58:00* Test Item Value Reference Range Interpretation Comments Urine Blood (test code = 39872-5) TRACE NEGATIVE [facility] CenterProthrombin time (PT) in platelet poor plasma by coagulation iixlc5477-25-63 00:28:00* Test Item Value Reference Range Interpretation Comments Prothrombin Time (test code = 5902-2) 11.9 11.9-14.5 [facility] CenterINR in Platelet poor plasma by Coagulation rjbux9118-65-06 00:28:00* Test Item Value Reference Range Interpretation Comments Prothromb Time International Ratio (test code = 6301-6) 0.83 Oral Anticoagulant Therapy INR Values:1. Low Intensity Therapy 1.5 - 2.02 . Moderate Intensity Therapy 2.0 - 3.03. High Intensity Therapy(1) 2.5 - 3. 54. High Intensity Therapy(2) 3.0 - 4.05. Panic Value INR > 5.0 [facility] CenterActivated partial thromboplastin time (aPTT) in platelet poor plasma by coagulation rsrad2945-94-75 00:28:00* Test Item Value Reference Range Interpretation Comments Activated Partial Thromboplast Time (test code = 95525-9) 22.8 23.8-35.5 [facility] CenterUrine opiates screening bjjs8993-75-16 00:28:00* Test Item Value Reference Range Interpretation Comments Urine Opiates Screen (test code = 88989-0) POSITIVE NEGATIVE ALL TESTS PERFORMED MANUALLY ON iPrint TOX/SEE TEST This test provides only a sc reen. Positive results should be repeated by a confirmatory test. PO SITIVE TCAHendrick Medical CenterBarbiturates screen, urine 2019-02-19 00:28:00* Test Item Value Reference Range Interpretation Comments Urine Barbiturates Screen (test code = 623912661) NEGATIVE NEGA TIVE [facility] CenterUrine phencyclidine detection by screening dihhqy3662-39-51 00:28:00* Test Item Value Reference Range Interpretation Comments Urine Phencyclidine Screen (test code = 58782-8) NEGATIVE NEGAT DAMIEN [facility] CenterUrine amphetamines detection by screen method > 1000 ng/iG2274-13-21 00:28:00* Test Item Value Reference Range Interpretation Comments Urine Amphetamines Screen (test code = 94581-3) NEGATIVE NEGATI VE [facility] CenterFluoroscopic procedure less than one hour pylwdgpj4776-51-52 00:28:00* Test Item Value Reference Range Interpretation Comments Urine Methamphetamines Screen (test code = Urine Metha mphetamines Screen) NEGATIVE NEGATIVE [facility] CenterUrine benzodiazepines detection by screening sqvdfq4652-29-00 00:28:00* Test Item Value Reference Range Interpretation Comments Urine Benzodiazepines Screen (test code = 51636-8) POSITIVE NEG ATIVE This test provides only a screen. Positive results should be repeated by a confi rmatory test.[facility] CenterUrine cocaine measurement (mass/volume)2019-02-19 00:28:00* Test Item Value Reference Range Interpretation Comments Urine Cocaine Screen (test code = 3398-5) NEGATIVE NEGATIVE [facility] CenterUrine cannabinoids detection by screening euudiq7398-69-15 00:28:00* Test Item Value Reference Range Interpretation Comments Urine Cannabinoids Screen (test code = 98797-8) NEGATIVE NEGATI VE THESE RESULTS ARE FOR MEDICAL TREATMENT ONLYTHIS REPORT CONTAINS UNCONFIR MED SCREENING RESULTS*POSITIVE RESULTS WILL BE CONFIRMED BY REFERENCE LAB UPON R EQUEST CUT-OFFDRUG CLASS CONCENTRATION ng/mLAmphetamines 1000Methamphetamines 1000Cocaine 300Opiate 300Phencyc lidine 25Cannabinoid 50Barbiturates 300Benzodiazepine 300Methadone 300[facility] HospitalU[facility] methadone jdmlfh5513-47-59 00:28:00* Test Item Value Reference Range Interpretation Comments Urine Methadone Screen (test code = 86821-5) POSITIVE NEGATIVE This test provides only a screen. Positive results should be repeated by a confi rmatory test.THESE RESULTS ARE FOR MEDICAL TREATMENT ONLYTHIS REPORT CONT AINS UNCONFIRMED SCREENING RESULTS*POSITIVE RESULTS WILL BE CONFIRMED BY REFEREN CE LAB UPON REQUEST CUT-OFFDRUG CLASS CON CENTRATION ng/mLAmphetamines 1000Methamp hetamines 1000Cocaine Metabolite 300Opiate 300Phencyclidine 25Cannabinoid 50Barbiturates 300Benzodiazepine 300Methadone 30 0[facility] CenterTransitional cells detection in urine sediment by light ftklpklwek5295-58-22 00:28:00* Test Item Value Reference Range Interpretation Comments Urine Transitional Epithelial Cells (test code = 8249-5) FEW NONE [facility] CenterCoarse granular casts detection in urine sediment by light bwdqsbtsyi8100-76-75 00:28:00* Test Item Value Reference Range Interpretation Comments Urine Coarse Granular Casts (test code = 29856-4) 1-5 >0 [facility] Lancastererum or plasma creatine kinase measurement (enzymatic activity/volume)2019-02-19 00:28:00* Test Item Value Reference Range Interpretation Comments Creatine Kinase (test code = 2157-6) 17 29-168 [facility] Lancastererum or plasma creatine kinase MB measurement (mass/volume)2019-02-19 00:28:00* Test Item Value Reference Range Interpretation Comments Creatine Kinase MB (test code = 48933-2) 0.60 0-5.0 [facility] CenterTroponin I measurement by highly sensitive enzyme dbntphhvcbn0799-52-37 00:28:00* Test Item Value Reference Range Interpretation Comments Troponin I (test code = 60960-3) < 0.001 0-0.300 [facility] CenterBedside Nkzhgbp6282-32-78 13:28:00* Test Item Value Reference Range Interpretation Comments Bedside Glucose (test code = 76771-5) 323 70-120 H Meter ID: [id number] [facility] WestBlood Culture 2019-02-12 20:11:00* Test Item Value Reference Range Interpretation Comments Blood Culture (test code = 00356475) NO GROWTH AFTER 5 DAYS, FINAL REPORT [facility] Lancasterodium Qiqmc6012-92-86 05:39:00* Test Item Value Reference Range Interpretation Comments Sodium Level (test code = 2951-2) 140 136-145 [facility] CenterPotassium Qqhcd2906-45-64 05:39:00* Test Item Value Reference Range Interpretation Comments Potassium Level (test code = 2823-3) 4.3 3.5-5.1 [facility] CenterChloride Dkwwa1963-44-07 05:39:00* Test Item Value Reference Range Interpretation Comments Chloride Level (test code = 2075-0) 104 98-107 [facility] CenterCarbon Dioxide Vvqvi8848-75-47 05:39:00* Test Item Value Reference Range Interpretation Comments Carbon Dioxide Level (test code = 2028-9) 22 22-29 [facility] CenterAnion Bto8787-76-82 05:39:00* Test Item Value Reference Range Interpretation Comments Anion Gap (test code = 85165-4) 18.3 8-16 H [facility] CenterBlood Urea Issmhmyd4368-37-02 05:39:00* Test Item Value Reference Range Interpretation Comments Blood Urea Nitrogen (test code = 3094-0) 12 7-26 [facility] CenterCreatinine2019-10-24 05:39:00* Test Item Value Reference Range Interpretation Comments Creatinine (test code = 2160-0) 0.76 0.57-1.11 [facility] CenterBUN/Creatinine Zcrrp3381-90-96 05:39:00* Test Item Value Reference Range Interpretation Comments BUN/Creatinine Ratio (test code = 3097-3) 16 6-25 [facility] CenterEstimat Glomerular Filtration Rate 2019-02-08 05:39:00* Test Item Value Reference Range Interpretation Comments Estimat Glomerular Filtration Rate (test code = 597914756) > 60 >60 Ranges were taken from the National Kidney Disease Education Program and the [facility] Kidney Foundation literature.Reference ranges:60 or greater: Kqzymf24-45 ( for 3 consecutive months): Chronic kidney disease 15 or less: Kidney failureHendrick Medical CenterGlucose Pekhm7774-41-73 05:39:00* Test Item Value Reference Range Interpretation Comments Glucose Level (test code = ZEV4504) 183 74-118 H [facility] CenterCalcium Kpkxv3144-66-87 05:39:00* Test Item Value Reference Range Interpretation Comments Calcium Level (test code = 41268-1) 9.1 8.4-10.2 [facility] CenterPhosphorus Wxspz0303-20-11 05:39:00* Test Item Value Reference Range Interpretation Comments Phosphorus Level (test code = UQD3050) 4.3 2.3-4.7 [facility] CenterMagnesium Opzlw1636-04-23 05:39:00* Test Item Value Reference Range Interpretation Comments Magnesium Level (test code = 52184-4) 2.1 1.3-2.1 [facility] CenterTotal Esypzznof3481-10-53 05:39:00* Test Item Value Reference Range Interpretation Comments Total Bilirubin (test code = 1975-2) 0.5 0.2-1.2 [facility] CenterAspartate Amino Transf (AST/SGOT) 2019-02-08 05:39:00* Test Item Value Reference Range Interpretation Comments Aspartate Amino Transf (AST/SGOT) (test code = Aspartate Amino Transf (AST/SGOT)) 32 5-34 [facility] CenterAlanine Aminotransferase (ALT/SGPT) 2019-02-08 05:39:00* Test Item Value Reference Range Interpretation Comments Alanine Aminotransferase (ALT/SGPT) (test code = 1742-6) 175 0-55 H [facility] CenterTotal Mvrfbxv5325-17-23 05:39:00* Test Item Value Reference Range Interpretation Comments Total Protein (test code = 2885-2) 6.3 6.5-8.1 L [facility] CenterAlbumin2019-10-24 05:39:00* Test Item Value Reference Range Interpretation Comments Albumin (test code = 1751-7) 3.1 3.5-5.0 L [facility] CenterGlobulin2019-10-24 05:39:00* Test Item Value Reference Range Interpretation Comments Globulin (test code = 75060-2) 3.2 2.3-3.5 [facility] CenterAlbumin/Globulin Oolkp9745-48-60 05:39:00 * Test Item Value Reference Range Interpretation Comments Albumin/Globulin Ratio (test code = 1759-0) 1.0 0.8-2.0 [facility] CenterAlkaline Bicftplimds4799-08-98 05:39:00* Test Item Value Reference Range Interpretation Comments Alkaline Phosphatase (test code = 6768-6) 90 40-150 [facility] CenterPhosphorus Nmvvp4167-06-65 05:39:00* Test Item Value Reference Range Interpretation Comments Phosphorus Level (test code = AWA4987) 4.3 2.3-4.7 [facility] CenterWhite Blood Ouwbr1047-32-10 05:11:00* Test Item Value Reference Range Interpretation Comments White Blood Count (test code = 6690-2) 16.37 4.8-10.8 H [facility] CenterRed Blood Svtfc4075-16-78 05:11:00* Test Item Value Reference Range Interpretation Comments Red Blood Count (test code = 789-8) 3.58 3.6-5.1 L [facility] CenterHemoglobin2019-10-24 05:11:00* Test Item Value Reference Range Interpretation Comments Hemoglobin (test code = 81417-4) 11.6 12.0-16.0 L [facility] CenterHematocrit2019-10-24 05:11:00* Test Item Value Reference Range Interpretation Comments Hematocrit (test code = 4544-3) 36.3 34.2-44.1 [facility] CenterMean Corpuscular Nwfwvy6695-40-20 05:11:00* Test Item Value Reference Range Interpretation Comments Mean Corpuscular Volume (test code = 787-2) 101.4 81-99 H [facility] CenterMean Corpuscular Ahowegcvec0265-80-77 05:11:00* Test Item Value Reference Range Interpretation Comments Mean Corpuscular Hemoglobin (test code = 785-6) 32.4 28-32 H [facility] CenterMean Corpuscular Hemoglobin Concent 2019-02-08 05:11:00* Test Item Value Reference Range Interpretation Comments Mean Corpuscular Hemoglobin Concent (test code = 786-4) 32.0 31-35 [facility] CenterRed Cell Distribution Aseab8593-12-69 05:11:00* Test Item Value Reference Range Interpretation Comments Red Cell Distribution Width (test code = 70239-7) 14.6 11.7 -14.4 H [facility] CenterPlatelet Goosy3754-60-27 05:11:00* Test Item Value Reference Range Interpretation Comments Platelet Count (test code = 777-3) 394 140-360 H [facility] CenterNeutrophils (%) (Auto)2019-02-08 05:11:00 * Test Item Value Reference Range Interpretation Comments Neutrophils (%) (Auto) (test code = 33252-5) 75.7 38.7-80.0 [facility] CenterLymphocytes (%) (Auto)2019-02-08 05:11:00 * Test Item Value Reference Range Interpretation Comments Lymphocytes (%) (Auto) (test code = 736-9) 15.1 18.0-39.1 L [facility] CenterMonocytes (%) (Auto)2019-02-08 05:11:00* Test Item Value Reference Range Interpretation Comments Monocytes (%) (Auto) (test code = 5905-5) 7.3 4.4-11.3 [facility] CenterEosinophils (%) (Auto)2019-02-08 05:11:00 * Test Item Value Reference Range Interpretation Comments Eosinophils (%) (Auto) (test code = 713-8) 0.6 0.0-6.0 [facility] CenterBasophils (%) (Auto)2019-02-08 05:11:00* Test Item Value Reference Range Interpretation Comments Basophils (%) (Auto) (test code = 706-2) 0.4 0.0-1.0 [facility] CenterIM GRANULOCYTES %2019-02-08 05:11:00* Test Item Value Reference Range Interpretation Comments IM GRANULOCYTES % (test code = IM GRANULOCYTES %) 0.9 0.0- 1.0 [facility] CenterNeutrophils # (Auto)2019-02-08 05:11:00* Test Item Value Reference Range Interpretation Comments Neutrophils # (Auto) (test code = 751-8) 12.4 2.1-6.9 H [facility] CenterLymphocytes # (Auto)2019-02-08 05:11:00* Test Item Value Reference Range Interpretation Comments Lymphocytes # (Auto) (test code = 10843-8) 2.5 1.0-3.2 [facility] CenterMonocytes # (Auto)2019-02-08 05:11:00* Test Item Value Reference Range Interpretation Comments Monocytes # (Auto) (test code = 742-7) 1.2 0.2-0.8 H [facility] CenterEosinophils # (Auto)2019-02-08 05:11:00* Test Item Value Reference Range Interpretation Comments Eosinophils # (Auto) (test code = 711-2) 0.1 0.0-0.4 [facility] CenterBasophils # (Auto)2019-02-08 05:11:00* Test Item Value Reference Range Interpretation Comments Basophils # (Auto) (test code = 704-7) 0.1 0.0-0.1 [facility] CenterAbsolute Immature Granulocyte (auto 2019-02-08 05:11:00* Test Item Value Reference Range Interpretation Comments Absolute Immature Granulocyte (auto (anita t code = Absolute Immature Granulocyte (auto) 0.15 0-0.1 H [facility] CenterPhosphorus pskwubuicid8931-74-54 04:45:00 * Test Item Value Reference Range Interpretation Comments Phosphorus Level (test code = MYJ7046) 4.3 2.3-4.7 [facility] CenterUrine WKP4192-35-21 21:35:00* Test Item Value Reference Range Interpretation Comments Urine WBC (test code = 5821-4) 0-5 0-5 [facility] CenterUrine XSG3268-83-56 21:35:00* Test Item Value Reference Range Interpretation Comments Urine RBC (test code = 45174-4) NONE 0-5 [facility] CenterUrine Yjodohrm1569-03-40 21:35:00* Test Item Value Reference Range Interpretation Comments Urine Bacteria (test code = 12917-6) MODERATE NONE H [facility] CenterUrine Epithelial Jivtv5009-49-22 21:35:00 * Test Item Value Reference Range Interpretation Comments Urine Epithelial Cells (test code = 89692-0) NONE NONE [facility] CenterUrine Osryo0956-74-95 21:19:00* Test Item Value Reference Range Interpretation Comments Urine Color (test code = 5778-6) YELLOW YELLOW [facility] CenterUrine Jrhlskf4239-33-71 21:19:00* Test Item Value Reference Range Interpretation Comments Urine Clarity (test code = 47621-5) SL CLOUDY CLEAR [facility] CenterUrine Specific Sdvtpcu7038-37-71 21:19:00 * Test Item Value Reference Range Interpretation Comments Urine Specific [place] (test code = 5811-5) >=1.030 1.010-1.02 5 [facility] CenterUrine jR0402-47-28 21:19:00* Test Item Value Reference Range Interpretation Comments Urine pH (test code = 56680-3) 6 5-7 [facility] CenterUrine Leukocyte Gvwjtfek5302-41-89 21:19:00* Test Item Value Reference Range Interpretation Comments Urine Leukocyte Esterase (test code = 96899-7) NEGATIVE NEGATIV E [facility] CenterUrine Ojmiwea6588-53-18 21:19:00* Test Item Value Reference Range Interpretation Comments Urine Nitrite (test code = 46336-1) NEGATIVE NEGATIVE [facility] CenterUrine Kjgnqxp5890-24-46 21:19:00* Test Item Value Reference Range Interpretation Comments Urine Protein (test code = 00970-2) NEGATIVE NEGATIVE [facility] CenterUrine Glucose (UA)2019-02-07 21:19:00* Test Item Value Reference Range Interpretation Comments Urine Glucose (UA) (test code = 54669-1) NEGATIVE NEGATIVE [facility] CenterUrine Pzoxxfj4352-91-93 21:19:00* Test Item Value Reference Range Interpretation Comments Urine Ketones (test code = 32329-0) NEGATIVE NEGATIVE [facility] Jctkcmelwhiz0853-96-08 21:19:00* Test Item Value Reference Range Interpretation Comments Urine Urobilinogen (test code = 42497-9) 0.2 0.2-1 [facility] CenterUrine Ijkoqrznl4913-27-59 21:19:00* Test Item Value Reference Range Interpretation Comments Urine Bilirubin (test code = 1977-8) NEGATIVE NEGATIVE [facility] CenterUrine Fafdy1499-80-75 21:19:00* Test Item Value Reference Range Interpretation Comments Urine Blood (test code = 45419-8) NEGATIVE NEGATIVE [facility] CenterUrine Zgmb9482-55-87 21:18:00* Test Item Value Reference Range Interpretation Comments Urine Test (test code = 2106-3) NEGATIVE NEGATIVE [facility] Hwys3632-16-63 21:18:00* Test Item Value Reference Range Interpretation Comments Urine Test (test code = 2106-3) NEGATIVE NEGATIVE [facility] CenterUrine human chorionic gonadotropin (hCG) ibvezjfdn6567-30-91 20:45:00* Test Item Value Reference Range Interpretation Comments Urine Test (test code = 2106-3) NEGATIVE NEGATIVE [facility] CenterLactic Acid Vhdbr0746-38-93 20:04:00* Test Item Value Reference Range Interpretation Comments Lactic Acid Level (test code = Lactic Acid Level) 1.6 0.5- 2.0 [facility] CenterCHES SINGLE (PORTABLE)2019-02-07 19:03:00 [place] [address] Patient Name: ROSA ISELA BENITEZ MR #: [id number] : 1970 Age/Sex: 49/F Req #: [id number] Adm Physician: Ordered by: ESTER PASTOR MD, MD Report #: [id number] Location: ER Room/Bed: Procedure: 1023-0 072 DX/CHEST [...] 02/07/191902 COPY TO: ESTER PASTOR B-Type Natriuretic Toffrsu3232-88-61 18:26:00* Test Item Value Reference Range Interpretation Comments B-Type Natriuretic Peptide (test code = 75769-5) 58.7 0-100 [facility] CenterCreatine Kinase GF4815-85-87 18:26:00* Test Item Value Reference Range Interpretation Comments Creatine Kinase MB (test code = 74543-6) 3.70 0-5.0 [facility] CenterTroponin S7773-62-35 18:26:00* Test Item Value Reference Range Interpretation Comments Troponin I (test code = OZG9557) 0.011 0-0.300 [facility] CenterB-Type Natriuretic Vpvufbg1079-87-59 18:26:00* Test Item Value Reference Range Interpretation Comments B-Type Natriuretic Peptide (test code = 87353-9) 58.7 0-100 [facility] CenterCreatine Tykgsb0084-67-53 18:16:00* Test Item Value Reference Range Interpretation Comments Creatine Kinase (test code = 2157-6) 117 29-168 [facility] CenterLipase2019-10-23 18:16:00* Test Item Value Reference Range Interpretation Comments Lipase (test code = 3040-3) [facility] CenterLipase2019-10-23 18:16:00* Test Item Value Reference Range Interpretation Comments Lipase (test code = 3040-3) [facility] CenterProthrombin Iupt4158-39-96 18:05:00* Test Item Value Reference Range Interpretation Comments Prothrombin Time (test code = 5902-2) 12.4 11.9-14.5 [facility] CenterProthromb Time International Ratio 2019-02-07 18:05:00* Test Item Value Reference Range Interpretation Comments Prothromb Time International Ratio (test code = 6301-6) 0.88 Oral Anticoagulant Therapy INR Values:1. Low Intensity Therapy 1.5 - 2.02 . Moderate Intensity Therapy 2.0 - 3.03. High Intensity Therapy(1) 2.5 - 3. 54. High Intensity Therapy(2) 3.0 - 4.05. Panic Value INR > 5.0 [facility] CenterActivated Partial Thromboplast Time 2019-02-07 18:05:00* Test Item Value Reference Range Interpretation Comments Activated Partial Thromboplast Time (test code = 18272-6) 24.1 23.8-35.5 [facility] CenterBNP Mkt-yGwy9300-72-23 15:15:00* Test Item Value Reference Range Interpretation Comments B-Type Natriuretic Peptide (test code = 96909-8) 58.7 0-100 [facility] Lancastererum or plasma lipase measurement (enzymatic activity/volume)2019-02-07 15:15:00* Test Item Value Reference Range Interpretation Comments Lipase (test code = 3040-3) 22 8-78 [facility] CenterWhite Blood Uusqw2308-91-74 06:17:00* Test Item Value Reference Range Interpretation Comments White Blood Count (test code = 6690-2) 15.04 4.8-10.8 H [facility] CenterRed Blood Wpttk8087-96-91 06:17:00* Test Item Value Reference Range Interpretation Comments Red Blood Count (test code = 789-8) 3.84 3.6-5.1 [facility] CenterHemoglobin2019-10-14 06:17:00* Test Item Value Reference Range Interpretation Comments Hemoglobin (test code = 69748-7) 12.6 12.0-16.0 [facility] CenterHematocrit2019-10-14 06:17:00* Test Item Value Reference Range Interpretation Comments Hematocrit (test code = 4544-3) 37.6 34.2-44.1 [facility] CenterMean Corpuscular Swnmbq2065-41-52 06:17:00* Test Item Value Reference Range Interpretation Comments Mean Corpuscular Volume (test code = 787-2) 97.9 81-99 [facility] CenterMean Corpuscular Mfkbaxuyhc6958-80-93 06:17:00* Test Item Value Reference Range Interpretation Comments Mean Corpuscular Hemoglobin (test code = 785-6) 32.8 28-32 H [facility] CenterMean Corpuscular Hemoglobin Concent 2019-01-29 06:17:00* Test Item Value Reference Range Interpretation Comments Mean Corpuscular Hemoglobin Concent (test code = 786-4) 33.5 31-35 [facility] CenterRed Cell Distribution Wbtvr5671-55-22 06:17:00* Test Item Value Reference Range Interpretation Comments Red Cell Distribution Width (test code = 21935-4) 13.6 11.7 -14.4 [facility] CenterPlatelet Heijk0563-19-78 06:17:00* Test Item Value Reference Range Interpretation Comments Platelet Count (test code = 777-3) 445 140-360 H [facility] CenterNeutrophils (%) (Auto)2019-01-29 06:17:00 * Test Item Value Reference Range Interpretation Comments Neutrophils (%) (Auto) (test code = 99158-1) 71.6 38.7-80.0 [facility] CenterLymphocytes (%) (Auto)2019-01-29 06:17:00 * Test Item Value Reference Range Interpretation Comments Lymphocytes (%) (Auto) (test code = 736-9) 20.3 18.0-39.1 [facility] CenterMonocytes (%) (Auto)2019-01-29 06:17:00* Test Item Value Reference Range Interpretation Comments Monocytes (%) (Auto) (test code = 5905-5) 6.1 4.4-11.3 [facility] CenterEosinophils (%) (Auto)2019-01-29 06:17:00 * Test Item Value Reference Range Interpretation Comments Eosinophils (%) (Auto) (test code = 713-8) 0.4 0.0-6.0 [facility] CenterBasophils (%) (Auto)2019-01-29 06:17:00* Test Item Value Reference Range Interpretation Comments Basophils (%) (Auto) (test code = 706-2) 0.4 0.0-1.0 [facility] CenterIM GRANULOCYTES %2019-01-29 06:17:00* Test Item Value Reference Range Interpretation Comments IM GRANULOCYTES % (test code = IM GRANULOCYTES %) 1.2 0.0- 1.0 H [facility] CenterNeutrophils # (Auto)2019-01-29 06:17:00* Test Item Value Reference Range Interpretation Comments Neutrophils # (Auto) (test code = 751-8) 10.8 2.1-6.9 H [facility] CenterLymphocytes # (Auto)2019-01-29 06:17:00* Test Item Value Reference Range Interpretation Comments Lymphocytes # (Auto) (test code = 35502-5) 3.1 1.0-3.2 [facility] CenterMonocytes # (Auto)2019-01-29 06:17:00* Test Item Value Reference Range Interpretation Comments Monocytes # (Auto) (test code = 742-7) 0.9 0.2-0.8 H [facility] CenterEosinophils # (Auto)2019-01-29 06:17:00* Test Item Value Reference Range Interpretation Comments Eosinophils # (Auto) (test code = 711-2) 0.1 0.0-0.4 [facility] CenterBasophils # (Auto)2019-01-29 06:17:00* Test Item Value Reference Range Interpretation Comments Basophils # (Auto) (test code = 704-7) 0.1 0.0-0.1 [facility] CenterAbsolute Immature Granulocyte (auto 2019-01-29 06:17:00* Test Item Value Reference Range Interpretation Comments Absolute Immature Granulocyte (auto (anita t code = Absolute Immature Granulocyte (auto) 0.18 0-0.1 H [facility] Lancasterodium Aadyi5090-54-44 06:12:00* Test Item Value Reference Range Interpretation Comments Sodium Level (test code = 2951-2) 138 136-145 [facility] CenterPotassium Epfev4263-74-16 06:12:00* Test Item Value Reference Range Interpretation Comments Potassium Level (test code = 2823-3) 3.5 3.5-5.1 [facility] CenterChloride Znoal4601-93-22 06:12:00* Test Item Value Reference Range Interpretation Comments Chloride Level (test code = 2075-0) 102 98-107 [facility] CenterCarbon Dioxide Gfuld0507-21-06 06:12:00* Test Item Value Reference Range Interpretation Comments Carbon Dioxide Level (test code = 2028-9) 27 22-29 [facility] CenterAnion Lvy3178-49-41 06:12:00* Test Item Value Reference Range Interpretation Comments Anion Gap (test code = 24453-2) 12.5 8-16 [facility] CenterBlood Urea Mmlbjdir5114-30-12 06:12:00* Test Item Value Reference Range Interpretation Comments Blood Urea Nitrogen (test code = 3094-0) 13 7-26 [facility] CenterCreatinine2019-10-14 06:12:00* Test Item Value Reference Range Interpretation Comments Creatinine (test code = 2160-0) 0.97 0.57-1.11 [facility] CenterBUN/Creatinine Smeef0292-38-60 06:12:00* Test Item Value Reference Range Interpretation Comments BUN/Creatinine Ratio (test code = 3097-3) 13 6- [facility] CenterEstimat Glomerular Filtration Rate 2019-01-29 06:12:00* Test Item Value Reference Range Interpretation Comments Estimat Glomerular Filtration Rate (test code = 304195829) > 60 >60 Ranges were taken from the National Kidney Disease Education Program and the [facility] Kid[facility] Foundation literature.Reference ranges:60 or greater: Zllemd63-64 ( for 3 consecutive months): Chronic kidney disease 15 or less: Kidney failureHendrick Medical CenterGlucose Vsrfg2805-52-26 06:12:00* Test Item Value Reference Range Interpretation Comments Glucose Level (test code = ZPJ3067) 176 74-118 H [facility] CenterCalcium Wwyke3576-36-97 06:12:00* Test Item Value Reference Range Interpretation Comments Calcium Level (test code = 16408-9) 9.1 8.4-10.2 [facility] CenterTotal Kicisetbf7545-86-16 06:12:00* Test Item Value Reference Range Interpretation Comments Total Bilirubin (test code = 1975-2) 0.3 0.2-1.2 [facility] CenterAspartate Amino Transf (AST/SGOT) 2019-01-29 06:12:00* Test Item Value Reference Range Interpretation Comments Aspartate Amino Transf (AST/SGOT) (test code = Aspartate Amino Transf (AST/SGOT)) 33 5-34 [facility] CenterAlanine Aminotransferase (ALT/SGPT) 2019-01-29 06:12:00* Test Item Value Reference Range Interpretation Comments Alanine Aminotransferase (ALT/SGPT) (test code = 1742-6) 34 0-55 [facility] CenterTotal Qvwrxup4008-49-57 06:12:00* Test Item Value Reference Range Interpretation Comments Total Protein (test code = 2885-2) 6.2 6.5-8.1 L [facility] CenterAlbumin2019-10-14 06:12:00* Test Item Value Reference Range Interpretation Comments Albumin (test code = 1751-7) 3.0 3.5-5.0 L [facility] CenterGlobulin2019-10-14 06:12:00* Test Item Value Reference Range Interpretation Comments Globulin (test code = 99582-2) 3.2 2.3-3.5 [facility] CenterAlbumin/Globulin Eitdg0905-89-49 06:12:00 * Test Item Value Reference Range Interpretation Comments Albumin/Globulin Ratio (test code = 1759-0) 0.9 0.8-2.0 [facility] CenterAlkaline Wdfltrqwkkw8548-32-61 06:12:00* Test Item Value Reference Range Interpretation Comments Alkaline Phosphatase (test code = 6768-6) 74 40-150 [facility] CenterBedside Zhrfuab1647-28-66 21:06:00* Test Item Value Reference Range Interpretation Comments Bedside Glucose (test code = 20912-2) 181 70-120 H Meter ID: [id number] [facility] WestMagnesium Level 2019-01-28 06:36:00* Test Item Value Reference Range Interpretation Comments Magnesium Level (test code = 04372-1) 2.2 1.3-2.1 H [facility] CenterCHEST 2 HIXTF8082-81-33 10:04:00 [facility] [address] [address] Patient Name: ROSA ISELA BENITEZ MR #: [id number] : Age/Sex: 48/F Req #: [id number] Adm Physician: Ordered by: SHEY CORONEL MD Report #: [id number] Location: ER Room/Bed: Procedure: 1012-0 009 DX/CHEST [...] COPY TO: SHEY CORONEL MD CT ABDOMEN/PELVIS HG4244-23-15 08:39:[address] [address] Patient Name: ROSA ISELA BENITEZ MR #: [id number] : 1970 Age/Sex: 48/F [facility] #: [id number] [facility] Physician: Ordered by: SHEY CORONEL MD Report #: [id number] Location: ER Room/Bed: Procedure: 1012-[address]/CT [...] COPY TO: SHEY CORONEL MD Creatine Kinase UU9159-24-11 08:23:00* Test Item Value Reference Range Interpretation Comments Creatine Kinase MB (test code = 18647-6) 4.10 0-5.0 [facility] CenterTroponin W2539-15-88 08:23:00* Test Item Value Reference Range Interpretation Comments Troponin I (test code = NWG5719) 0.014 0-0.300 [facility] CenterCreatine Egjucb4885-41-15 08:18:00* Test Item Value Reference Range Interpretation Comments Creatine Kinase (test code = 2157-6) 76 29-168 [facility] CenterUrine MFT3251-81-94 08:11:00* Test Item Value Reference Range Interpretation Comments Urine WBC (test code = 5821-4) 0-5 0-5 [facility] CenterUrine WLY5167-38-97 08:11:00* Test Item Value Reference Range Interpretation Comments Urine RBC (test code = 97762-2) 0-5 0-5 [facility] CenterUrine Pcbgkkhq0687-59-20 08:11:00* Test Item Value Reference Range Interpretation Comments Urine Bacteria (test code = 39101-1) RARE NONE [facility] CenterUrine Epithelial Zhhju4513-21-20 08:11:00 * Test Item Value Reference Range Interpretation Comments Urine Epithelial Cells (test code = 11778-1) MODERATE NONE [facility] CenterUrine Yzbft5487-49-90 08:01:00* Test Item Value Reference Range Interpretation Comments Urine Color (test code = 5778-6) YELLOW YELLOW [facility] CenterUrine Zadyxop8726-68-99 08:01:00* Test Item Value Reference Range Interpretation Comments Urine Clarity (test code = 25475-3) CLEAR CLEAR [facility] Specific Rtzofzy7732-18-85 08:01:00 * Test Item Value Reference Range Interpretation Comments Urine Specific [place] (test code = 5811-5) 1.010 1.010-1.02 5 [facility] CenterUrine kJ3360-17-38 08:01:00* Test Item Value Reference Range Interpretation Comments Urine pH (test code = 39475-7) 6.5 5-7 [facility] Leukocyte Dichjejz8046-30-81 08:01:00* Test Item Value Reference Range Interpretation Comments Urine Leukocyte Esterase (test code = 32828-8) NEGATIVE NEGATIV E [facility] Omtmvgp2684-82-10 08:01:00* Test Item Value Reference Range Interpretation Comments Urine Nitrite (test code = 63227-8) NEGATIVE NEGATIVE [facility] Flldbgq1251-00-06 08:01:00* Test Item Value Reference Range Interpretation Comments Urine Protein (test code = 39984-0) NEGATIVE NEGATIVE [facility] Glucose (UA)2019-01-27 08:01:00* Test Item Value Reference Range Interpretation Comments Urine Glucose (UA) (test code = 35703-0) 2+ NEGATIVE H [facility] Mnfnybk8814-44-58 08:01:00* Test Item Value Reference Range Interpretation Comments Urine Ketones (test code = 48519-6) NEGATIVE NEGATIVE [facility] Bqjiaeftqooh9328-62-44 08:01:00* Test Item Value Reference Range Interpretation Comments Urine Urobilinogen (test code = 48050-5) 0.2 0.2-1 [facility] Ndlurppha5479-52-51 08:01:00* Test Item Value Reference Range Interpretation Comments Urine Bilirubin (test code = 1977-8) NEGATIVE NEGATIVE [facility] Ncyva4696-91-05 08:01:00* Test Item Value Reference Range Interpretation Comments Urine Blood (test code = 77318-0) NEGATIVE NEGATIVE [facility] CenterBedside Gikhxbf4678-05-08 11:45:00* Test Item Value Reference Range Interpretation Comments Bedside Glucose (test code = 47147-4) 108 70-120 Meter ID: [id number] Medical Center Lancasterodium Level 2018-11-29 06:48:00* Test Item Value Reference Range Interpretation Comments Sodium Level (test code = 2951-2) 134 136-145 L [facility] CenterPotassium Tvaqf3833-05-63 06:48:00* Test Item Value Reference Range Interpretation Comments Potassium Level (test code = 2823-3) 3.8 3.5-5.1 [facility] CenterChloride Bdriu6423-02-22 06:48:00* Test Item Value Reference Range Interpretation Comments Chloride Level (test code = 2075-0) 101 98-107 [facility] CenterCarbon Dioxide Qakal5202-46-05 06:48:00* Test Item Value Reference Range Interpretation Comments Carbon Dioxide Level (test code = 2028-9) 23 22-29 [facility] CenterAnion Ovn9810-78-64 06:48:00* Test Item Value Reference Range Interpretation Comments Anion Gap (test code = 93789-2) 13.8 8-16 [facility] CenterBlood Urea Lizebvbf8656-11-48 06:48:00* Test Item Value Reference Range Interpretation Comments Blood Urea Nitrogen (test code = 3094-0) 8 7-26 [facility] CenterCreatinine2019-08-14 06:48:00* Test Item Value Reference Range Interpretation Comments Creatinine (test code = 2160-0) 0.83 0.57-1.11 [facility] CenterBUN/Creatinine Daoam2176-45-39 06:48:00* Test Item Value Reference Range Interpretation Comments BUN/Creatinine Ratio (test code = 3097-3) 10 6-25 [facility] CenterEstimat Glomerular Filtration Rate 2018-11-29 06:48:00* Test Item Value Reference Range Interpretation Comments Estimat Glomerular Filtration Rate (test code = 774932424) > 60 >60 Ranges were taken from the National Kidney Disease Education Program and the [facility] Kidney Foundation literature.Reference ranges:60 or greater: Qbezuv92-60 ( for 3 consecutive months): Chronic kidney disease 15 or less: Kidney failureHendrick Medical CenterGlucose Pcymq0466-53-44 06:48:00* Test Item Value Reference Range Interpretation Comments Glucose Level (test code = ORB6362) 128 74-118 H [facility] CenterCalcium Admsi3504-25-64 06:48:00* Test Item Value Reference Range Interpretation Comments Calcium Level (test code = 56928-9) 9.2 8.4-10.2 [facility] CenterTotal Jcfqgqneg0654-00-11 06:48:00* Test Item Value Reference Range Interpretation Comments Total Bilirubin (test code = 1975-2) 0.4 0.2-1.2 [facility] CenterAspartate Amino Transf (AST/SGOT) 2018-11-29 06:48:00* Test Item Value Reference Range Interpretation Comments Aspartate Amino Transf (AST/SGOT) (test code = Aspartate Amino Transf (AST/SGOT)) 42 5-34 H [facility] CenterAlanine Aminotransferase (ALT/SGPT) 2018-11-29 06:48:00* Test Item Value Reference Range Interpretation Comments Alanine Aminotransferase (ALT/SGPT) (test code = 1742-6) 76 0-55 H [facility] CenterTotal Xjidbft6421-29-02 06:48:00* Test Item Value Reference Range Interpretation Comments Total Protein (test code = 2885-2) 6.9 6.5-8.1 [facility] CenterAlbumin2019-08-14 06:48:00* Test Item Value Reference Range Interpretation Comments Albumin (test code = 1751-7) 3.3 3.5-5.0 L [facility] CenterGlobulin2019-08-14 06:48:00* Test Item Value Reference Range Interpretation Comments Globulin (test code = 72842-2) 3.6 2.3-3.5 H [facility] CenterAlbumin/Globulin Bnhbs4710-13-71 06:48:00 * Test Item Value Reference Range Interpretation Comments Albumin/Globulin Ratio (test code = 1759-0) 0.9 0.8-2.0 [facility] CenterAlkaline Hklrftleolf9342-19-68 06:48:00* Test Item Value Reference Range Interpretation Comments Alkaline Phosphatase (test code = 6768-6) 324 40-150 H [facility] CenterWhite Blood Asxse4383-27-32 06:15:00* Test Item Value Reference Range Interpretation Comments White Blood Count (test code = 6690-2) 13.02 4.8-10.8 H [facility] CenterRed Blood Vfxay0545-82-02 06:15:00* Test Item Value Reference Range Interpretation Comments Red Blood Count (test code = 789-8) 4.28 3.6-5.1 [facility] CenterHemoglobin2019-08-14 06:15:00* Test Item Value Reference Range Interpretation Comments Hemoglobin (test code = 71935-5) 14.8 12.0-16.0 [facility] CenterHematocrit2019-08-14 06:15:00* Test Item Value Reference Range Interpretation Comments Hematocrit (test code = 4544-3) 46.0 34.2-44.1 H [facility] CenterMean Corpuscular Hngsjr0430-29-28 06:15:00* Test Item Value Reference Range Interpretation Comments Mean Corpuscular Volume (test code = 787-2) 107.5 81-99 H [facility] CenterMean Corpuscular Vyuwxkimjd4652-83-92 06:15:00* Test Item Value Reference Range Interpretation Comments Mean Corpuscular Hemoglobin (test code = 785-6) 34.6 28-32 H [facility] CenterMean Corpuscular Hemoglobin Concent 2018-11-29 06:15:00* Test Item Value Reference Range Interpretation Comments Mean Corpuscular Hemoglobin Concent (test code = 786-4) 32.2 31-35 [facility] CenterRed Cell Distribution Nsxdt5895-85-69 06:15:00* Test Item Value Reference Range Interpretation Comments Red Cell Distribution Width (test code = 37513-4) 14.1 11.7 -14.4 [facility] CenterPlatelet Qyjov8961-89-07 06:15:00* Test Item Value Reference Range Interpretation Comments Platelet Count (test code = 777-3) 359 140-360 [facility] CenterNeutrophils (%) (Auto)2018-11-29 06:15:00 * Test Item Value Reference Range Interpretation Comments Neutrophils (%) (Auto) (test code = 02479-3) 64.4 38.7-80.0 [facility] CenterLymphocytes (%) (Auto)2018-11-29 06:15:00 * Test Item Value Reference Range Interpretation Comments Lymphocytes (%) (Auto) (test code = 736-9) 20.7 18.0-39.1 [facility] CenterMonocytes (%) (Auto)2018-11-29 06:15:00* Test Item Value Reference Range Interpretation Comments Monocytes (%) (Auto) (test code = 5905-5) 8.8 4.4-11.3 [facility] CenterEosinophils (%) (Auto)2018-11-29 06:15:00 * Test Item Value Reference Range Interpretation Comments Eosinophils (%) (Auto) (test code = 713-8) 3.1 0.0-6.0 [facility] CenterBasophils (%) (Auto)2018-11-29 06:15:00* Test Item Value Reference Range Interpretation Comments Basophils (%) (Auto) (test code = 706-2) 1.2 0.0-1.0 H [facility] CenterIM GRANULOCYTES %2018-11-29 06:15:00* Test Item Value Reference Range Interpretation Comments IM GRANULOCYTES % (test code = IM GRANULOCYTES %) 1.8 0.0- 1.0 H [facility] CenterNeutrophils # (Auto)2018-11-29 06:15:00* Test Item Value Reference Range Interpretation Comments Neutrophils # (Auto) (test code = 751-8) 8.4 2.1-6.9 H [facility] CenterLymphocytes # (Auto)2018-11-29 06:15:00* Test Item Value Reference Range Interpretation Comments Lymphocytes # (Auto) (test code = 38589-7) 2.7 1.0-3.2 [facility] CenterMonocytes # (Auto)2018-11-29 06:15:00* Test Item Value Reference Range Interpretation Comments Monocytes # (Auto) (test code = 742-7) 1.2 0.2-0.8 H [facility] CenterEosinophils # (Auto)2018-11-29 06:15:00* Test Item Value Reference Range Interpretation Comments Eosinophils # (Auto) (test code = 711-2) 0.4 0.0-0.4 [facility] CenterBasophils # (Auto)2018-11-29 06:15:00* Test Item Value Reference Range Interpretation Comments Basophils # (Auto) (test code = 704-7) 0.2 0.0-0.1 H [facility] CenterAbsolute Immature Granulocyte (auto 2018-11-29 06:15:00* Test Item Value Reference Range Interpretation Comments Absolute Immature Granulocyte (auto (anita t code = Absolute Immature Granulocyte (auto) 0.24 0-0.1 H [facility] CenterUS EXTREMITY GONZALES VSZ-NIV4061-98-09 16:58:00 [place] [address] Patient Name: ROSA ISELA BENITEZ MR #: [id number] : 1970 Age/Sex: 48/F Req #: [id number] Adm Physician: PARMINDER NARVAEZ MD Ordered by: KATIE BOWEN MD Report #: [id number] Location: MED/SURG2 Room/Bed: [facility] Procedure: [id number] US/US EXTREMITY GONZALES NON-VAS Exam Date: 11/24/18 [...] Interpretation Comments Blood Culture (test code = 20945470) NO GROWTH AFTER 5 DAYS, FINAL REPORT [facility] CenterBlood Fpcxysr3199-01-14 19:49:00* Test Item Value Reference Range Interpretation Comments Blood Culture (test code = 50307219) NO GROWTH AFTER 5 DAYS, FINAL REPORT [facility] CenterUS NZGGL9899-36-32 08:05:00 [place] [address] Patient Name: ROSA ISELA BENITEZ MR #: [id number] : Age/Sex: 48/F Req #: [id number] Adm Physician: PARMINDER NARVAEZ MD Ordered by: PARMINDER NARVAEZ MD Report #: [id number] Location: MED/SURG2 Room/Bed: [facility] Procedure: [id number] US/US LIVER Exam Date: 11/21/18 Exam Time: [...] 8 COPY TO: JING NARVAEZ MD Magnesium Bkqhr7917-08-93 06:02:00* Test Item Value Reference Range Interpretation Comments Magnesium Level (test code = 01863-8) 2.1 1.3-2.1 [facility] XRAY LINE CODKMVKVS0119-26-79 17:01:00 [place] [id number] [place] [address] Patient Name: ROSA ISELA BENITEZ MR #: [id number] : 1970 Age/Sex: 48/F Req #: [id number] Adm Physician: PARMINDER NARVAEZ MD Ordered by: PARMINDER NARVAEZ MD Report #: [id number] Location: MED/SURG2 Room/Bed: [facility] Procedure: [id number] DX/CHEST XRAY LINE PLACEMENT Exam Date: 11/18/18 [...] 5:02 PM Dictated By: ZURI OTTO MD [facility] [place] [facility] Signed By: ZURI OTTO MD on 11/18/181701 Transcribed By: BRENDON on 1701 COPY TO: PARMINDER NARVAEZ MD CT FOOT RIGHT BW7098-60-82 20:35:00 [place] [address] Patient Name: ROSA ISELA BENITEZ MR #: [id number] : 1970 Age/Sex: 48/F Req #: [id number] Adm Physician: Ordered by: DIANNE BUSH MD Report #: [id number] Location: ER Room/Bed: Procedure: CT/CT FOOT RIGHT [...] COPY TO: DIANNE BUSH MD Lactic Acid Kpvef5980-51-87 19:20:00* Test Item Value Reference Range Interpretation Comments Lactic Acid Level (test code = Lactic Acid Level) 17.3 4.5- 19.8 [facility] CenterLactic Acid Rsyzy8618-08-87 19:20:00* Test Item Value Reference Range Interpretation Comments Lactic Acid Level (test code = Lactic Acid Level) 17.3 4.5- 19.8 [facility] CenterFOOT RIGHT OYYARGXJ8118-80-90 18:47:00 [facility] [address] [place] [address] Patient Name: ROSA ISELA BENITEZ MR #: [id number] : Age/Sex: 48/F Req #: [id number] Adm Physician: Ordered by: DIANNE BUSH MD Report #: [id number] Location: ER Room/Bed: Procedure: 73 DX/FOOT RIGHT [...] 11/17/181848 COPY TO: DIANNE BUSH MD Bedside Tcbfxfd4781-46-62 07:45:00* Test Item Value Reference Range Interpretation Comments Bedside Glucose (test code = 54244-3) 137 70-120 H Meter ID: [id number] [facility]Blood [facility] 2018-04-14 16:36:00* Test Item Value Reference Range Interpretation Comments Blood Culture (test code = 14077431) NO GROWTH AFTER 5 DAYS, FINAL REPORT [facility] Lancasterodium Givph5072-05-33 05:18:00* Test Item Value Reference Range Interpretation Comments Sodium Level (test code = 2951-2) 136 136-145 [facility] CenterPotassium Vfwdj9044-94-73 05:18:00* Test Item Value Reference Range Interpretation Comments Potassium Level (test code = 2823-3) 3.3 3.5-5.1 L [facility] CenterChloride Dqsvr6048-94-28 05:18:00* Test Item Value Reference Range Interpretation Comments Chloride Level (test code = 2075-0) 99 98-107 [facility] CenterCarbon Dioxide Jztxy3194-06-33 05:18:00* Test Item Value Reference Range Interpretation Comments Carbon Dioxide Level (test code = 2028-9) 24 - [facility] CenterAnion Btw2881-33-05 05:18:00* Test Item Value Reference Range Interpretation Comments Anion Gap (test code = 26863-6) 16.3 8-16 H [facility] CenterBlood Urea Rtpmiqwo5428-46-50 05:18:00* Test Item Value Reference Range Interpretation Comments Blood Urea Nitrogen (test code = 3094-0) 12 11-10 [facility] CenterCreatinine2018-12-26 05:18:00* Test Item Value Reference Range Interpretation Comments Creatinine (test code = 2160-0) 0.78 0.57-1.11 [facility] CenterBUN/Creatinine Qafow5195-26-01 05:18:00* Test Item Value Reference Range Interpretation Comments BUN/Creatinine Ratio (test code = 3097-3) 15 10-10 [facility] CenterEstimat Glomerular Filtration Rate 2018-04-12 05:18:00* Test Item Value Reference Range Interpretation Comments Estimat Glomerular Filtration Rate (test code = 223765779) > 60 >60 Ranges were taken from the National Kidney Disease Education Program and the [facility] Kidney Foundation literature.Reference ranges:60 or greater: Iplgrx86-08 ( for 3 consecutive months): Chronic kidney disease 15 or less: Kidney failureHendrick Medical CenterGlucose Qlmbi5899-15-53 05:18:00* Test Item Value Reference Range Interpretation Comments Glucose Level (test code = DXO3791) 216 74-118 H [facility] CenterCalcium Uzzhl1411-03-67 05:18:00* Test Item Value Reference Range Interpretation Comments Calcium Level (test code = 20534-1) 9.3 8.4-10.2 [facility] CenterTotal Chfueoptq4170-15-36 05:18:00* Test Item Value Reference Range Interpretation Comments Total Bilirubin (test code = 1975-2) 0.4 0.2-1.2 [facility] CenterAspartate Amino Transf (AST/SGOT) 2018-04-12 05:18:00* Test Item Value Reference Range Interpretation Comments Aspartate Amino Transf (AST/SGOT) (test code = Aspartate Amino Transf (AST/SGOT)) 24 5-34 [facility] CenterAlanine Aminotransferase (ALT/SGPT) 2018-04-12 05:18:00* Test Item Value Reference Range Interpretation Comments Alanine Aminotransferase (ALT/SGPT) (test code = 1742-6) 114 0-55 [facility]tal Vicopsg1613-61-24 05:18:00* Test Item Value Reference Range Interpretation Comments Total Protein (test code = 2885-2) 6.8 6.5-8.1 [facility] CenterAlbumin2018-12-26 05:18:00* Test Item Value Reference Range Interpretation Comments Albumin (test code = 1751-7) 2.9 3.5-5.0 L [facility] CenterGlobulin2018-12-26 05:18:00* Test Item Value Reference Range Interpretation Comments Globulin (test code = 73379-3) 3.9 2.3-3.5 H [facility] CenterAlbumin/Globulin Gohwj7924-04-23 05:18:00 * Test Item Value Reference Range Interpretation Comments Albumin/Globulin Ratio (test code = 1759-0) 0.7 0.8-2.0 L [facility] CenterAlkaline Zrfkfhndmyd1876-48-85 05:18:00* Test Item Value Reference Range Interpretation Comments Alkaline Phosphatase (test code = 6768-6) 98 40-150 [facility] CenterTriglycerides Vwzfq6387-65-72 05:18:00* Test Item Value Reference Range Interpretation Comments Triglycerides Level (test code = 2571-8) 133 0-149 [facility] CenterCholesterol Kwfbq1583-07-02 05:18:00* Test Item Value Reference Range Interpretation Comments Cholesterol Level (test code = 2093-3) 220 0-199 H Less than 200 mg/dL Low Rmsr310 - 239 mg/dL Borderline Gszu105 m g/dl and greater High Risk [facility] CenterLDL Chppjpapvas6019-48-94 05:18:00* Test Item Value Reference Range Interpretation Comments LDL Cholesterol (test code = 2089-1) 139 60-130 H [facility] Cgyjviyxpgw3001-98-03 05:18:00* Test Item Value Reference Range Interpretation Comments HDL Cholesterol (test code = 2085-9) 54 40-60 [facility] CenterCholesterol/HDL Efzld8601-38-21 05:18:00 * Test Item Value Reference Range Interpretation Comments Cholesterol/HDL Ratio (test code = 9830-1) 4.1 3.0-3.6 H [facility] CenterTriglycerides Cduyq2930-52-10 05:18:00* Test Item Value Reference Range Interpretation Comments Triglycerides Level (test code = 2571-8) 133 0-149 [facility] CenterCholesterol Gzcjx5208-47-14 05:18:00* Test Item Value Reference Range Interpretation Comments Cholesterol Level (test code = 2093-3) 220 0-199 H Less than 200 mg/dL Low Dkql716 - 239 mg/dL Borderline Ouql700 m g/dl and greater High Risk [facility] Xywdbslpphg4654-80-94 05:18:00* Test Item Value Reference Range Interpretation Comments LDL Cholesterol (test code = 2089-1) 139 60-130 H [facility] Vkbbqltmnys0215-26-92 05:18:00* Test Item Value Reference Range Interpretation Comments HDL Cholesterol (test code = 2085-9) 54 40-60 [facility] CenterCholesterol/HDL Yarqt4564-84-64 05:18:00 * Test Item Value Reference Range Interpretation Comments Cholesterol/HDL Ratio (test code = 9830-1) 4.1 3.0-3.6 H [facility] CenterTriglycerides Zsvfh5150-82-72 05:18:00* Test Item Value Reference Range Interpretation Comments Triglycerides Level (test code = 2571-8) 133 0-149 [facility] CenterCholesterol Astpv5286-55-23 05:18:00* Test Item Value Reference Range Interpretation Comments Cholesterol Level (test code = 2093-3) 220 0-199 H Less than 200 mg/dL Low Yczo036 - 239 mg/dL Borderline Viaq028 m g/dl and greater High Risk [facility] CenterLDL Kgujiiacqjt8656-15-99 05:18:00* Test Item Value Reference Range Interpretation Comments LDL Cholesterol (test code = 2089-1) 139 60-130 H [facility] CenterHDL Ehaitluujly5606-20-73 05:18:00* Test Item Value Reference Range Interpretation Comments HDL Cholesterol (test code = 2085-9) 54 40-60 [facility] CenterCholesterol/HDL Ttdvr3024-96-09 05:18:00 * Test Item Value Reference Range Interpretation Comments Cholesterol/HDL Ratio (test code = 9830-1) 4.1 3.0-3.6 [facility] CenterWhite Blood Ukjbi9584-62-38 04:52:00* Test Item Value Reference Range Interpretation Comments White Blood Count (test code = 6690-2) 12.93 4.8-10.8 [facility] CenterRed Blood Dicbm8972-77-47 04:52:00* Test Item Value Reference Range Interpretation Comments Red Blood Count (test code = 789-8) 3.90 3.6-5.1 [facility] CenterHemoglobin2018-12-26 04:52:00* Test Item Value Reference Range Interpretation Comments Hemoglobin (test code = 04525-9) 12.6 12.0-16.0 [facility] CenterHematocrit2018-12-26 04:52:00* Test Item Value Reference Range Interpretation Comments Hematocrit (test code = 4544-3) 37.1 34.2-44.1 [facility] CenterMean Corpuscular Ffyxmi0450-29-81 04:52:00* Test Item Value Reference Range Interpretation Comments Mean Corpuscular Volume (test code = 787-2) 95.1 81-99 [facility] CenterMean Corpuscular Tebjpjirjb4982-57-18 04:52:00* Test Item Value Reference Range Interpretation Comments Mean Corpuscular Hemoglobin (test code = 785-6) 32.3 28-32 H [facility] CenterMean Corpuscular Hemoglobin Concent 2018-04-12 04:52:00* Test Item Value Reference Range Interpretation Comments Mean Corpuscular Hemoglobin Concent (test code = 786-4) 34.0 31-35 [facility] CenterRed Cell Distribution Sdetq6890-38-18 04:52:00* Test Item Value Reference Range Interpretation Comments Red Cell Distribution Width (test code = 39308-2) 14.2 11.7 -14.4 [facility] CenterPlatelet Ivozs7837-31-20 04:52:00* Test Item Value Reference Range Interpretation Comments Platelet Count (test code = 777-3) 413 140-360 [facility] CenterNeutrophils (%) (Auto)2018-04-12 04:52:00 * Test Item Value Reference Range Interpretation Comments Neutrophils (%) (Auto) (test code = 58867-7) 88.2 38.7-80.0 H [facility] CenterLymphocytes (%) (Auto)2018-04-12 04:52:00 * Test Item Value Reference Range Interpretation Comments Lymphocytes (%) (Auto) (test code = 736-9) 8.7 18.0-39.1 L [facility] CenterMonocytes (%) (Auto)2018-04-12 04:52:00* Test Item Value Reference Range Interpretation Comments Monocytes (%) (Auto) (test code = 5905-5) 1.2 4.4-11.3 L [facility] CenterEosinophils (%) (Auto)2018-04-12 04:52:00 * Test Item Value Reference Range Interpretation Comments Eosinophils (%) (Auto) (test code = 713-8) 0.0 0.0-6.0 [facility] CenterBasophils (%) (Auto)2018-04-12 04:52:00* Test Item Value Reference Range Interpretation Comments Basophils (%) (Auto) (test code = 706-2) 0.2 0.0-1.0 [facility] CenterIM GRANULOCYTES %2018-04-12 04:52:00* Test Item Value Reference Range Interpretation Comments IM GRANULOCYTES % (test code = IM GRANULOCYTES %) 1.7 0.0- 1.0 H [facility] CenterNeutrophils # (Auto)2018-04-12 04:52:00* Test Item Value Reference Range Interpretation Comments Neutrophils # (Auto) (test code = 751-8) 11.4 2.1-6.9 H [facility] CenterLymphocytes # (Auto)2018-04-12 04:52:00* Test Item Value Reference Range Interpretation Comments Lymphocytes # (Auto) (test code = 41151-5) 1.1 1.0-3.2 [facility] CenterMonocytes # (Auto)2018-04-12 04:52:00* Test Item Value Reference Range Interpretation Comments Monocytes # (Auto) (test code = 742-7) 0.2 0.2-0.8 [facility] CenterEosinophils # (Auto)2018-04-12 04:52:00* Test Item Value Reference Range Interpretation Comments Eosinophils # (Auto) (test code = 711-2) 0.0 0.0-0.4 [facility] CenterBasophils # (Auto)2018-04-12 04:52:00* Test Item Value Reference Range Interpretation Comments Basophils # (Auto) (test code = 704-7) 0.0 0.0-0.1 [facility] CenterAbsolute Immature Granulocyte (auto 2018-04-12 04:52:00* Test Item Value Reference Range Interpretation Comments Absolute Immature Granulocyte (auto (anita t code = Absolute Immature Granulocyte (auto) 0.22 0-0.1 H [facility] XUSICWJOP5467-38-46 13:49:00 [facility] [address] [address] Patient Name: ROSA ISELA BENITEZ MR #: [id number] : 1970 Age/Sex: 48/F Req #: [id number] Adm Physician: PARMINDER NARVAEZ MD Ordered by: KATIE BOWEN MD Report #: [id number] Location: [facility] Room/Bed: [facility] Procedure: [id number] DX/CHEST XRAY LINE PLACEMENT Exam Date: 04/11/18 [...] COPY TO: KATIE BOWEN MD Hemoglobin A1c Woaazrd4227-20-09 07:34:00* Test Item Value Reference Range Interpretation Comments Hemoglobin A1c Percent (test code = Hemoglobin A1c Percent) 7.0 4.0-7.0 [facility] CenterHemoglobin A1c Mazlsdc5856-95-08 07:34:00 * Test Item Value Reference Range Interpretation Comments Hemoglobin A1c Percent (test code = Hemoglobin A1c Percent) 7.0 4.0-7.0 [facility] CenterHemoglobin A1c Bzbbahv3133-61-07 07:34:00 * Test Item Value Reference Range Interpretation Comments Hemoglobin A1c Percent (test code = Hemoglobin A1c Percent) 7.0 4.0-7.0 [facility] A IgM Jfoikmdp2039-58-49 06:27:00* Test Item Value Reference Range Interpretation Comments Hepatitis A IgM Antibody (test code = 49855-0) Negative Negativ e [facility] B Surface Jagwmes8298-63-65 06:27:00* Test Item Value Reference Range Interpretation Comments Hepatitis B Surface Antigen (test code = 5196-1) Negative Negat damien [facility] B Core IgM Qcxqwomv9401-41-65 06:27:00* Test Item Value Reference Range Interpretation Comments Hepatitis B Core IgM Antibody (test code = 91240-8) Negative Ne gative [facility] C Lzqhbotu2990-42-73 06:27:00* Test Item Value Reference Range Interpretation Comments Hepatitis C Antibody (test code = 92485-1) 0.1 0.0-0.9 Negative: < 0.8 Indeterminate: 0.8 - 0.9 Positive: > 0.9 The CDC recommends that a positive HCV antibody result be followed up with a HCV Nucleic Acid Amplification test (379070).Performed at: [facility] [address] [place] [address] [id number] Director: Prasanna Mishra MD, Phone: [phone] Regional Medical Center A IgM Antibody 2018-04-11 06:27:00* Test Item Value Reference Range Interpretation Comments Hepatitis A IgM Antibody (test code = 08397-5) Negative Negativ e [facility] B Surface Mbkvtvr5389-46-42 06:27:00* Test Item Value Reference Range Interpretation Comments Hepatitis B Surface Antigen (test code = 5196-1) Negative Negat damien [facility] B Core IgM Tgwwuxwq3887-10-98 06:27:00* Test Item Value Reference Range Interpretation Comments Hepatitis B Core IgM Antibody (test code = 00959-2) Negative Ne [facility] C Zzlqngaa1806-65-45 06:27:00* Test Item Value Reference Range Interpretation Comments Hepatitis C Antibody (test code = 23167-4) 0.1 0.0-0.9 Negative: < 0.8 Indeterminate: 0.8 - 0.9 Positive: > 0.9 The CDC recommends that a positive HCV antibody result be followed up with a HCV Nucleic Acid Amplification test (372404).Performed at: [facility] [address] [place] [address] [id number] Director: Prasanna Mishra MD, Phone: [phone] Regional Medical Center A IgM Antibody 2018-04-11 06:27:00* Test Item Value Reference Range Interpretation Comments Hepatitis A IgM Antibody (test code = 71106-1) Negative Negativ e [facility] B Surface Abhrjtn8948-05-71 06:27:00* Test Item Value Reference Range Interpretation Comments Hepatitis B Surface Antigen (test code = 5196-1) Negative Negat damien [facility] B Core IgM Jxxmzhkh9398-27-27 06:27:00* Test Item Value Reference Range Interpretation Comments Hepatitis B Core IgM Antibody (test code = 84743-9) Negative [facility] Jhkkytqt8731-03-56 06:27:00* Test Item Value Reference Range Interpretation Comments Hepatitis C Antibody (test code = 26594-5) 0.1 0.0-0.9 Negative: < 0.8 Indeterminate: 0.8 - 0.9 Positive: > 0.9 The CDC recommends that a positive HCV antibody result be followed up with a HCV Nucleic Acid Amplification test (646456).Performed at: [facility] [address] [place], [place] [id number] Director: Prasanna Mishra MD, Phone: [phone] [facility] HospitalUS UXNRC3650-32-03 13:19:00 [facility] [address] [place] [address] Patient Name: ROSA ISELA BENITEZ MR #: [id number] : Age/Sex: 48/F Req #: [id number] Adm Physician: PARMINDER NARVAEZ MD Ordered by: IDA BHANDARI MD Report #: [id number] Location: MED/SURG2 Room/Bed: [facility] Procedure: US/US LIVER Exam Date: [...] 2 COPY TO: IDA BHANDARI MD Urine [id number] 19:14:00* Test Item Value Reference Range Interpretation Comments Urine WBC (test code = 5821-4) 0-5 0-5 [facility] CenterUrine ELC0593-08-39 19:14:00* Test Item Value Reference Range Interpretation Comments Urine RBC (test code = 45090-3) 0-5 0-5 [facility] CenterUrine Bfnlatgb0381-10-32 19:14:00* Test Item Value Reference Range Interpretation Comments Urine Bacteria (test code = 17793-6) NONE NONE [facility] CenterUrine Epithelial Vwnxa4677-35-55 19:14:00 * Test Item Value Reference Range Interpretation Comments Urine Epithelial Cells (test code = 84915-2) MODERATE NONE [facility] CenterUrine RSB9749-20-79 19:14:00* Test Item Value Reference Range Interpretation Comments Urine WBC (test code = 5821-4) 0-5 0-5 [facility] CenterUrine NVG4894-32-31 19:14:00* Test Item Value Reference Range Interpretation Comments Urine RBC (test code = 06023-0) 0-5 0-5 [facility] CenterUrine Gypamarg8597-86-56 19:14:00* Test Item Value Reference Range Interpretation Comments Urine Bacteria (test code = 50051-3) NONE NONE [facility] CenterUrine Epithelial Zsxmf3431-72-41 19:14:00 * Test Item Value Reference Range Interpretation Comments Urine Epithelial Cells (test code = 23545-7) MODERATE NONE [facility] CenterUrine Gbxyb8813-48-68 19:04:00* Test Item Value Reference Range Interpretation Comments Urine Color (test code = 5778-6) YELLOW YELLOW [facility] CenterUrine Ffkjixh1409-57-98 19:04:00* Test Item Value Reference Range Interpretation Comments Urine Clarity (test code = 78120-2) CLEAR CLEAR [facility] Specific Kwhlaze3182-53-66 19:04:00 * Test Item Value Reference Range Interpretation Comments Urine Specific [place] (test code = 5811-5) 1.010 1.010-1.02 5 [facility] CenterUrine cU4238-31-33 19:04:00* Test Item Value Reference Range Interpretation Comments Urine pH (test code = 18039-9) 6.5 5-7 [facility] Leukocyte Swzqpdxu7633-38-37 19:04:00* Test Item Value Reference Range Interpretation Comments Urine Leukocyte Esterase (test code = 5799-2) NEGATIVE NEGATIVE [facility] Hlrnazr6713-57-45 19:04:00* Test Item Value Reference Range Interpretation Comments Urine Nitrite (test code = 65781-9) NEGATIVE NEGATIVE [facility] Wouvbfj6987-99-73 19:04:00* Test Item Value Reference Range Interpretation Comments Urine Protein (test code = 5804-0) NEGATIVE NEGATIVE [facility] Glucose (UA)2018-04-09 19:04:00* Test Item Value Reference Range Interpretation Comments Urine Glucose (UA) (test code = 2349-9) NEGATIVE NEGATIVE [facility] CenterU[facility] Emenlmf7847-59-26 19:04:00* Test Item Value Reference Range Interpretation Comments Urine Ketones (test code = 66808-6) NEGATIVE NEGATIVE [facility] Jjqahugtkwko5735-95-23 19:04:00* Test Item Value Reference Range Interpretation Comments Urine Urobilinogen (test code = 69695-9) 0.2 0.2-1 [facility] CenterUrine Tqnxhsbkh8813-43-36 19:04:00* Test Item Value Reference Range Interpretation Comments Urine Bilirubin (test code = 1978-6) NEGATIVE NEGATIVE [facility] CenterU[facility] Khpnu1024-60-68 19:04:00* Test Item Value Reference Range Interpretation Comments Urine Blood (test code = 35111-5) NEGATIVE NEGATIVE [facility] CenterUrine Zsxeq1410-50-80 19:04:00* Test Item Value Reference Range Interpretation Comments Urine Color (test code = 5778-6) YELLOW YELLOW [facility] CenterUrine Fnauelg6829-62-12 19:04:00* Test Item Value Reference Range Interpretation Comments Urine Clarity (test code = 07795-2) CLEAR CLEAR [facility] CenterU[facility] Specific Yrukqwu6168-86-69 19:04:00 * Test Item Value Reference Range Interpretation Comments Urine Specific [place] (test code = 5811-5) 1.010 1.010-1.02 5 [facility] CenterUrine mY6113-67-90 19:04:00* Test Item Value Reference Range Interpretation Comments Urine pH (test code = 07703-5) 6.5 5-7 [facility] CenterUrine Leukocyte Ywhhwipd9513-32-90 19:04:00* Test Item Value Reference Range Interpretation Comments Urine Leukocyte Esterase (test code = 5799-2) NEGATIVE NEGATIVE [facility] CenterUrine Oepwgzy9919-48-27 19:04:00* Test Item Value Reference Range Interpretation Comments Urine Nitrite (test code = 31542-3) NEGATIVE NEGATIVE [facility] CenterUrine Vxrrpry0667-00-47 19:04:00* Test Item Value Reference Range Interpretation Comments Urine Protein (test code = 5804-0) NEGATIVE NEGATIVE [facility] CenterUrine Glucose (UA)2018-04-09 19:04:00* Test Item Value Reference Range Interpretation Comments Urine Glucose (UA) (test code = 2349-9) NEGATIVE NEGATIVE [facility] CenterUrine Lonyhpx9669-79-29 19:04:00* Test Item Value Reference Range Interpretation Comments Urine Ketones (test code = 49873-0) NEGATIVE NEGATIVE [facility] CenterUrine Ilsurmwcpotm9405-40-42 19:04:00* Test Item Value Reference Range Interpretation Comments Urine Urobilinogen (test code = 49121-1) 0.2 0.2-1 [facility] CenterUrine Hpkxspfzi5730-90-36 19:04:00* Test Item Value Reference Range Interpretation Comments Urine Bilirubin (test code = 1978-6) NEGATIVE NEGATIVE [facility] CenterUrine Cypuq5258-91-71 19:04:00* Test Item Value Reference Range Interpretation Comments Urine Blood (test code = 68410-5) NEGATIVE NEGATIVE [facility] CenterLactic Acid Tgudx9602-69-03 16:51:00* Test Item Value Reference Range Interpretation Comments Lactic Acid Level (test code = Lactic Acid Level) 12.6 4.5- 19.8 [facility] CenterCreatine Kinase ZB2722-24-20 16:32:00* Test Item Value Reference Range Interpretation Comments Creatine Kinase MB (test code = 16894-0) 1.70 0-5.0 [facility] CenterTroponin Z0577-07-92 16:32:00* Test Item Value Reference Range Interpretation Comments Troponin I (test code = GEI0929) 0.197 0-0.300 [facility] CenterCreatine Kinase DB0373-17-46 16:32:00* Test Item Value Reference Range Interpretation Comments Creatine Kinase MB (test code = 50177-6) 1.70 0-5.0 [facility] CenterTropon T8401-58-80 16:32:00* Test Item Value Reference Range Interpretation Comments Troponin I (test code = VJE4641) 0.197 0-0.300 [facility] CenterCreatine Tdvuxs7262-80-48 16:25:00* Test Item Value Reference Range Interpretation Comments Creatine Kinase (test code = 2157-6) 32 29-168 [facility] CenterLipase2018-12-23 16:25:00* Test Item Value Reference Range Interpretation Comments Lipase (test code = 3040-3) 9 8-78 [facility] CenterCreatine Impljs2668-89-05 16:25:00* Test Item Value Reference Range Interpretation Comments Creatine Kinase (test code = 2157-6) 32 29-168 [facility] CenterLipase2018-12-23 16:25:00* Test Item Value Reference Range Interpretation Comments Lipase (test code = 3040-3) [facility] CenterLipase2018-12-23 16:25:00* Test Item Value Reference Range Interpretation Comments Lipase (test code = 3040-3) [facility] CenterActivated Partial Thromboplast Time 2018-04-09 16:14:00* Test Item Value Reference Range Interpretation Comments Activated Partial Thromboplast Time (test code = 82771-8) 29.1 23.8-35.5 [facility] CenterActivated Partial Thromboplast Time 2018-04-09 16:14:00* Test Item Value Reference Range Interpretation Comments Activated Partial Thromboplast Time (test code = 60143-9) 29.1 23.8-35.5 [facility] CenterActivated Partial Thromboplast Time 2018-04-09 16:14:00* Test Item Value Reference Range Interpretation Comments Activated Partial Thromboplast Time (test code = 48330-8) 29.1 23.8-35.5 [facility] CenterProthrombin Zknr2561-75-36 16:13:00* Test Item Value Reference Range Interpretation Comments Prothrombin Time (test code = 5902-2) 12.5 11.9-14.5 [facility] CenterProthromb Time International Ratio 2018-04-09 16:13:00* Test Item Value Reference Range Interpretation Comments Prothromb Time International Ratio (test code = 6301-6) 0.86 Oral Anticoagulant Therapy INR Values:1. Low Intensity Therapy 1.5 - 2.02 . Moderate Intensity Therapy 2.0 - 3.03. High Intensity Therapy(1) 2.5 - 3. 54. High Intensity Therapy(2) 3.0 - 4.05. Panic Value INR > 5.0 [facility] CenterProthrombin Fqam9391-54-37 16:13:00* Test Item Value Reference Range Interpretation Comments Prothrombin Time (test code = 5902-2) 12.5 11.9-14.5 [facility] CenterProthromb Time International Ratio 2018-04-09 16:13:00* Test Item Value Reference Range Interpretation Comments Prothromb Time International Ratio (test code = 6301-6) 0.86 Oral Anticoagulant Therapy INR Values:1. Low Intensity Therapy 1.5 - 2.02 . Moderate Intensity Therapy 2.0 - 3.03. High Intensity Therapy(1) 2.5 - 3. 54. High Intensity Therapy(2) 3.0 - 4.05. Panic Value INR > 5.0 [facility] CenterProthrombin Qasr2655-03-53 16:13:00* Test Item Value Reference Range Interpretation Comments Prothrombin Time (test code = 5902-2) 12.5 11.9-14.5 [facility] CenterProthromb Time International Ratio 2018-04-09 16:13:00* Test Item Value Reference Range Interpretation Comments Prothromb Time International Ratio (test code = 6301-6) 0.86 Oral Anticoagulant Therapy INR Values:1. Low Intensity Therapy 1.5 - 2.02 . Moderate Intensity Therapy 2.0 - 3.03. High Intensity Therapy(1) 2.5 - 3. 54. High Intensity Therapy(2) 3.0 - 4.05. Panic Value INR > 5.0 [facility] CenterBlood Wxzrnbp6942-29-53 04:17:00* Test Item Value Reference Range Interpretation Comments Blood Culture (test code = 46872779) NO GROWTH AFTER 5 DAYS, FINAL REPORT [facility] CenterBedside Eukfjih0532-65-59 20:11:00* Test Item Value Reference Range Interpretation Comments Bedside Glucose (test code = 39304-0) 135 70-120 H Meter ID: [id number] [facility] WestDifferential Total Cells Mpfxget1152-34-53 08:02:00* Test Item Value Reference Range Interpretation Comments Differential Total Cells Counted (test code = Differgeoff tial Total Cells Counted) 100 [facility] CenterNeutrophils % (Manual)2017-10-10 08:02:00 * Test Item Value Reference Range Interpretation Comments Neutrophils % (Manual) (test code = 81466-8) 52 40-74 [facility] CenterLymphocytes % (Manual)2017-10-10 08:02:00 * Test Item Value Reference Range Interpretation Comments Lymphocytes % (Manual) (test code = 737-7) 29 19-48 [facility] CenterMonocytes % (Manual)2017-10-10 08:02:00* Test Item Value Reference Range Interpretation Comments Monocytes % (Manual) (test code = 744-3) 9 3.4-9.0 [facility] CenterEosinophils % (Manual)2017-10-10 08:02:00 * Test Item Value Reference Range Interpretation Comments Eosinophils % (Manual) (test code = 714-6) 2 0-7 [facility] CenterMetamyelocytes %2017-10-10 08:02:00* Test Item Value Reference Range Interpretation Comments Metamyelocytes % (test code = 740-1) 3 0-0 H [facility] CenterMyelocytes %2017-10-10 08:02:00* Test Item Value Reference Range Interpretation Comments Myelocytes % (test code = 749-2) 5 0-0 H [facility] CenterPlatelet Irikgizs0957-24-18 08:02:00* Test Item Value Reference Range Interpretation Comments Platelet Estimate (test code = 76888-5) ADEQUATE [facility] CenterPlatelet Morphology Pbigfpy7910-36-63 08:02:00* Test Item Value Reference Range Interpretation Comments Platelet Morphology Comment (test code = 84948-0) NORMAL [facility] CenterRed Cell Morphology Jhkiqzv0041-60-69 08:02:00* Test Item Value Reference Range Interpretation Comments Red Cell Morphology Comment (test code = 6742-1) NORMAL [facility] CenterDifferential Total Cells Counted 2017-10-10 08:02:00* Test Item Value Reference Range Interpretation Comments Differential Total Cells Counted (test code = Differgeoff tial Total Cells Counted) 100 [facility] CenterNeutrophils % (Manual)2017-10-10 08:02:00 * Test Item Value Reference Range Interpretation Comments Neutrophils % (Manual) (test code = 51412-8) 52 40-74 [facility] CenterLymphocytes % (Manual)2017-10-10 08:02:00 * Test Item Value Reference Range Interpretation Comments Lymphocytes % (Manual) (test code = 737-7) 29 19-48 [facility] CenterMonocytes % (Manual)2017-10-10 08:02:00* Test Item Value Reference Range Interpretation Comments Monocytes % (Manual) (test code = 744-3) 9 3.4-9.0 [facility] CenterEosinophils % (Manual)2017-10-10 08:02:00 * Test Item Value Reference Range Interpretation Comments Eosinophils % (Manual) (test code = 714-6) 2 0-7 [facility] CenterMetamyelocytes %2017-10-10 08:02:00* Test Item Value Reference Range Interpretation Comments Metamyelocytes % (test code = 740-1) 3 0-0 H [facility] CenterMyelocytes %2017-10-10 08:02:00* Test Item Value Reference Range Interpretation Comments Myelocytes % (test code = 749-2) 5 0-0 H [facility] CenterPlatelet Dubeznth5195-23-82 08:02:00* Test Item Value Reference Range Interpretation Comments Platelet Estimate (test code = 18932-4) ADEQUATE [facility] CenterPlatelet Morphology Blpgjyt9138-30-40 08:02:00* Test Item Value Reference Range Interpretation Comments Platelet Morphology Comment (test code = 39660-0) NORMAL [facility] CenterRed Cell Morphology Ugveffx5103-39-96 08:02:00* Test Item Value Reference Range Interpretation Comments Red Cell Morphology Comment (test code = 6742-1) NORMAL [facility] CenterWhite Blood Xrjhw8472-83-39 07:05:00* Test Item Value Reference Range Interpretation Comments White Blood Count (test code = 6690-2) 13.59 4.8-10.8 H [facility] CenterRed Blood Dcvkf2879-87-46 07:05:00* Test Item Value Reference Range Interpretation Comments Red Blood Count (test code = 789-8) 3.76 3.6-5.1 [facility] CenterHemoglobin2018-06-25 07:05:00* Test Item Value Reference Range Interpretation Comments Hemoglobin (test code = 78295-2) 12.5 12.0-16.0 [facility] CenterHematocrit2018-06-25 07:05:00* Test Item Value Reference Range Interpretation Comments Hematocrit (test code = 4544-3) 36.4 34.2-44.1 [facility] CenterMean Corpuscular Bkssdj5969-97-43 07:05:00* Test Item Value Reference Range Interpretation Comments Mean Corpuscular Volume (test code = 787-2) 96.8 81-99 [facility] CenterMean Corpuscular Thucmmeymz3132-66-07 07:05:00* Test Item Value Reference Range Interpretation Comments Mean Corpuscular Hemoglobin (test code = 785-6) 33.2 28-32 H [facility] CenterMean Corpuscular Hemoglobin Concent 2017-10-10 07:05:00* Test Item Value Reference Range Interpretation Comments Mean Corpuscular Hemoglobin Concent (test code = 786-4) 34.3 31-35 [facility] CenterRed Cell Distribution Fvotm7586-54-06 07:05:00* Test Item Value Reference Range Interpretation Comments Red Cell Distribution Width (test code = 30181-3) 14.9 11.7 -14.4 H [facility] CenterPlatelet Kdihm7045-73-01 07:05:00* Test Item Value Reference Range Interpretation Comments Platelet Count (test code = 777-3) 371 140-360 H [facility] CenterNeutrophils (%) (Auto)2017-10-10 07:05:00 * Test Item Value Reference Range Interpretation Comments Neutrophils (%) (Auto) (test code = 93714-7) 59.8 38.7-80.0 [facility] CenterLymphocytes (%) (Auto)2017-10-10 07:05:00 * Test Item Value Reference Range Interpretation Comments Lymphocytes (%) (Auto) (test code = 736-9) 25.1 18.0-39.1 [facility] CenterMonocytes (%) (Auto)2017-10-10 07:05:00* Test Item Value Reference Range Interpretation Comments Monocytes (%) (Auto) (test code = 5905-5) 7.7 4.4-11.3 [facility] CenterEosinophils (%) (Auto)2017-10-10 07:05:00 * Test Item Value Reference Range Interpretation Comments Eosinophils (%) (Auto) (test code = 713-8) 0.7 0.0-6.0 [facility] CenterBasophils (%) (Auto)2017-10-10 07:05:00* Test Item Value Reference Range Interpretation Comments Basophils (%) (Auto) (test code = 706-2) 0.9 0.0-1.0 [facility] CenterIM GRANULOCYTES %2017-10-10 07:05:00* Test Item Value Reference Range Interpretation Comments IM GRANULOCYTES % (test code = IM GRANULOCYTES %) 5.8 0.0- 1.0 H [facility] CenterNeutrophils # (Auto)2017-10-10 07:05:00* Test Item Value Reference Range Interpretation Comments Neutrophils # (Auto) (test code = 751-8) 8.1 2.1-6.9 H [facility] CenterLymphocytes # (Auto)2017-10-10 07:05:00* Test Item Value Reference Range Interpretation Comments Lymphocytes # (Auto) (test code = 36696-8) 3.4 1.0-3.2 H [facility] CenterMonocytes # (Auto)2017-10-10 07:05:00* Test Item Value Reference Range Interpretation Comments Monocytes # (Auto) (test code = 742-7) 1.1 0.2-0.8 [facility] CenterEosinophils # (Auto)2017-10-10 07:05:00* Test Item Value Reference Range Interpretation Comments Eosinophils # (Auto) (test code = 711-2) 0.1 0.0-0.4 [facility] CenterBasophils # (Auto)2017-10-10 07:05:00* Test Item Value Reference Range Interpretation Comments Basophils # (Auto) (test code = 704-7) 0.1 0.0-0.1 [facility] CenterAbsolute Immature Granulocyte (auto 2017-10-10 07:05:00* Test Item Value Reference Range Interpretation Comments Absolute Immature Granulocyte (auto (anita t code = Absolute Immature Granulocyte (auto) 0.79 0-0.1 [facility] Lancasterodium Pulfn4011-19-69 08:10:00* Test Item Value Reference Range Interpretation Comments Sodium Level (test code = 2951-2) 139 136-145 [facility] CenterPotassium Jvuku8541-38-30 08:10:00* Test Item Value Reference Range Interpretation Comments Potassium Level (test code = 2823-3) 3.8 3.5-5.1 [facility] CenterChloride Tfmps4905-04-79 08:10:00* Test Item Value Reference Range Interpretation Comments Chloride Level (test code = 2075-0) 104 98-107 [facility] CenterCarbon Dioxide Mazmy6076-73-84 08:10:00* Test Item Value Reference Range Interpretation Comments Carbon Dioxide Level (test code = 2028-9) 24 22- [facility] CenterAnion Icy5404-95-56 08:10:00* Test Item Value Reference Range Interpretation Comments Anion Gap (test code = 01187-2) 14.8 8-16 [facility] CenterBlood Urea Aytkwnha7045-25-06 08:10:00* Test Item Value Reference Range Interpretation Comments Blood Urea Nitrogen (test code = 3094-0) 18 7-26 [facility] CenterCreatinine2018-06-24 08:10:00* Test Item Value Reference Range Interpretation Comments Creatinine (test code = 2160-0) 0.78 0.57-1.11 [facility] CenterBUN/Creatinine Dznyf2912-64-84 08:10:00* Test Item Value Reference Range Interpretation Comments BUN/Creatinine Ratio (test code = 3097-3) 23 6-25 [facility] CenterEstimat Glomerular Filtration Rate 2017-10-09 08:10:00* Test Item Value Reference Range Interpretation Comments Estimat Glomerular Filtration Rate (test code = 63681-5) 60- >60 Ranges were taken from the National Kidney Disease Education Program and the [facility] Kidney Foundation literature.Reference ranges:60 or greater: Nvopve02-37 ( for 3 consecutive months): Chronic kidney disease 15 or less: Kidney failureHendrick Medical CenterGlucose Xvxwx2587-01-16 08:10:00* Test Item Value Reference Range Interpretation Comments Glucose Level (test code = JHE4263) 125 74-118 H [facility] CenterCalcium Suokw4743-16-01 08:10:00* Test Item Value Reference Range Interpretation Comments Calcium Level (test code = 16670-9) 9.2 8.4-10.2 [facility] CenterTotal Behtbsxyp5438-51-62 08:10:00* Test Item Value Reference Range Interpretation Comments Total Bilirubin (test code = 1975-2) 0.3 0.2-1.2 [facility] CenterAspartate Amino Transf (AST/SGOT) 2017-10-09 08:10:00* Test Item Value Reference Range Interpretation Comments Aspartate Amino Transf (AST/SGOT) (test code = Aspartate Amino Transf (AST/SGOT)) 22 5-34 [facility] CenterAlanine Aminotransferase (ALT/SGPT) 2017-10-09 08:10:00* Test Item Value Reference Range Interpretation Comments Alanine Aminotransferase (ALT/SGPT) (test code = 1742-6) 43 0-55 [facility] CenterTotal Lswyuwv9069-69-20 08:10:00* Test Item Value Reference Range Interpretation Comments Total Protein (test code = 2885-2) 6.6 6.5-8.1 [facility] CenterAlbumin2018-06-24 08:10:00* Test Item Value Reference Range Interpretation Comments Albumin (test code = 1751-7) 3.1 3.5-5.0 L [facility] CenterGlobulin2018-06-24 08:10:00* Test Item Value Reference Range Interpretation Comments Globulin (test code = 95889-6) 3.5 2.3-3.5 [facility] CenterAlbumin/Globulin Ocudc7031-74-94 08:10:00 * Test Item Value Reference Range Interpretation Comments Albumin/Globulin Ratio (test code = 1759-0) 0.9 0.8-2.0 [facility] CenterAlkaline Lawzbrsvlcg3244-69-89 08:10:00* Test Item Value Reference Range Interpretation Comments Alkaline Phosphatase (test code = 6768-6) 76 40-150 [facility] CenterTriglycerides Ssbnt2698-30-15 08:10:00* Test Item Value Reference Range Interpretation Comments Triglycerides Level (test code = 2571-8) 677 0-149 H [facility] CenterCholesterol Mjqgh4714-84-83 08:10:00* Test Item Value Reference Range Interpretation Comments Cholesterol Level (test code = 2093-3) 267 0-199 H Less than 200 mg/dL Low Ocrt439 - 239 mg/dL Borderline Bdnw571 m g/dl and greater High Risk [facility] CenterHDL Metxmjwacme9980-55-19 08:10:00* Test Item Value Reference Range Interpretation Comments HDL Cholesterol (test code = 2085-9) 50 40-60 [facility] CenterCholesterol/HDL Qgdzr4576-68-64 08:10:00 * Test Item Value Reference Range Interpretation Comments Cholesterol/HDL Ratio (test code = 9830-1) 5.3 3.0-3.6 H [facility] CenterCreatine Kinase [id number] 19:38:00* Test Item Value Reference Range Interpretation Comments Creatine Kinase MB (test code = 27750-5) 2.40 0-5.0 [facility] CenterTroponin [id number] 19:38:00* Test Item Value Reference Range Interpretation Comments Troponin I (test code = HMB4397) -0.001 0-0.300 [facility] CenterCreatine Wmgiac1452-34-72 19:28:00* Test Item Value Reference Range Interpretation Comments Creatine Kinase (test code = 2157-6) 84 29-168 [facility] CenterUrine Leukocyte Hariekqy5409-80-50 14:17:00* Test Item Value Reference Range Interpretation Comments Urine Leukocyte Esterase (test code = 5799-2) 1+ NEGATIVE H --- 10/08/17 1416 ---LEUKO ESTERASE previously reported as: NEGATIVE [facility] CenterUrine VVY0964-83-00 14:13:00* Test Item Value Reference Range Interpretation Comments Urine WBC (test code = 5821-4) 6-10 0-5 H [facility] CenterUrine QQO7030-26-43 14:13:00* Test Item Value Reference Range Interpretation Comments Urine RBC (test code = 17818-8) 0-5 0-5 [facility] CenterUrine Oaivbosx6732-62-05 14:13:00* Test Item Value Reference Range Interpretation Comments Urine Bacteria (test code = 14278-3) FEW NONE [facility] CenterUrine Epithelial Acbbp5097-70-13 14:13:00 * Test Item Value Reference Range Interpretation Comments Urine Epithelial Cells (test code = 24336-5) FEW NONE [facility] CenterUrine Mtcwk0325-76-25 14:09:00* Test Item Value Reference Range Interpretation Comments Urine Color (test code = 5778-6) YELLOW YELLOW [facility] CenterUrine Sptlphb9215-15-58 14:09:00* Test Item Value Reference Range Interpretation Comments Urine Clarity (test code = 66018-3) CLEAR CLEAR [facility] CenterUrine Specific Jekeslq1794-23-24 14:09:00 * Test Item Value Reference Range Interpretation Comments Urine Specific [place] (test code = 5811-5) 1.020 1.010-1.02 5 [facility] CenterUrine dK8607-02-59 14:09:00* Test Item Value Reference Range Interpretation Comments Urine pH (test code = 07019-2) 6 5-7 [facility] CenterUrine Atjcggt5540-51-85 14:09:00* Test Item Value Reference Range Interpretation Comments Urine Nitrite (test code = 94451-0) NEGATIVE NEGATIVE [facility] CenterUrine Xpcnbgu2680-87-08 14:09:00* Test Item Value Reference Range Interpretation Comments Urine Protein (test code = 5804-0) NEGATIVE NEGATIVE [facility] CenterUrine Glucose (UA)2017-10-08 14:09:00* Test Item Value Reference Range Interpretation Comments Urine Glucose (UA) (test code = 2349-9) NEGATIVE NEGATIVE [facility] CenterUrine Dguejpv9398-61-64 14:09:00* Test Item Value Reference Range Interpretation Comments Urine Ketones (test code = 41292-8) NEGATIVE NEGATIVE [facility] CenterUrine Znrizokqgvqp3692-94-41 14:09:00* Test Item Value Reference Range Interpretation Comments Urine Urobilinogen (test code = 39298-8) 0.2 0.2-1 [facility] CenterUrine Indfotxgc0222-73-56 14:09:00* Test Item Value Reference Range Interpretation Comments Urine Bilirubin (test code = 1978-6) NEGATIVE NEGATIVE [facility] CenterUrine Ruxfg1718-59-50 14:09:00* Test Item Value Reference Range Interpretation Comments Urine Blood (test code = 80116-7) NEGATIVE NEGATIVE [facility] CenterUrine Dlyq6833-09-57 14:09:00* Test Item Value Reference Range Interpretation Comments Urine Test (test code = 2106-3) NEGATIVE NEGATIVE [facility] CenterUrine Yuab7852-27-71 14:09:00* Test Item Value Reference Range Interpretation Comments Urine Test (test code = 2106-3) NEGATIVE NEGATIVE [facility] CenterHemoglobin A1c Iwpgkre5077-03-14 08:53:00 * Test Item Value Reference Range Interpretation Comments Hemoglobin A1c Percent (test code = Hemoglobin A1c Percent) 7.0 4.0-7.0 [facility] CenterThyroid Stimulating Hormone (TSH) 2017-10-08 04:23:00* Test Item Value Reference Range Interpretation Comments Thyroid Stimulating Hormone (TSH) (test code = 97810-1) 1.862 0.350-4.940 [facility] CenterThyroid Stimulating Hormone (TSH) 2017-10-08 04:23:00* Test Item Value Reference Range Interpretation Comments Thyroid Stimulating Hormone (TSH) (test code = 31362-6) 1.862 0.350-4.940 [facility] CenterCHEST SINGLE (PORTABLE)2017-10-08 04:20:00 [place] [id number] [place] [address] Patient Name: ROSA ISELA BENITEZ MR #: [id number] : 1970 Age/Sex: 47/F Req #: [id number] Adm Physician: Ordered by: ALAN NAJERA MD Report #: [id number] Location: ER Room/Bed: Procedure: [id number] DX/CHEST SINGLE (PORTABLE ) Exam Date: 10/08/17 [...] COPY TO: ALAN NAJERA MD LOWER LEG ONQYE0348-81-86 04:18:00 [place] [address] Patient Name: ROSA ISELA BENITEZ MR #: [id number] : 1970 Age/Sex: 47/F Req #: [id number] Adm Physician: Ordered by: ALAN NAJERA MD Report #: [id number] Location: Room/Bed: Procedure: [id number] DX/LOWER LEG RIGHT Exam Date: 10/08/17 Exam [...] COPY TO: ALAN NAJERA MD B-Type Natriuretic Traefwc8288-73-09 04:06:00* Test Item Value Reference Range Interpretation Comments B-Type Natriuretic Peptide (test code = 63637-0) 17.1 0-100 [facility] CenterB-Type Natriuretic Zfwuiit9084-94-25 04:06:00* Test Item Value Reference Range Interpretation Comments B-Type Natriuretic Peptide (test code = 55369-8) 17.1 0-100 [facility] CenterProthrombin Zdeo2171-29-08 03:58:00* Test Item Value Reference Range Interpretation Comments Prothrombin Time (test code = 5902-2) 12.0 11.9-14.5 [facility] CenterProthromb Time International Ratio 2017-10-08 03:58:00* Test Item Value Reference Range Interpretation Comments Prothromb Time International Ratio (test code = 6301-6) 0.96 Oral Anticoagulant Therapy INR Values:1. Low Intensity Therapy 1.5 - 2.02 . Moderate Intensity Therapy 2.0 - 3.03. High Intensity Therapy(1) 2.5 - 3. 54. High Intensity Therapy(2) 3.0 - 4.05. Panic Value INR > 5.0 [facility] CenterActivated Partial Thromboplast Time 2017-10-08 03:58:00* Test Item Value Reference Range Interpretation Comments Activated Partial Thromboplast Time (test code = 28733-5) 25.0 23.8-35.5 [facility] CenterD-Dimer Quantitative (PE/DVT)2017-10-08 03:58:00* Test Item Value Reference Range Interpretation Comments D-Dimer Quantitative (PE/DVT) (test code = 58359-0) 0.86 0. 00-0.45 H As with all in vitro diagnostic tests, the test results should be interpreted by the physician in conjunction with clinical findings and other test results.Test results are reported in NEW D-dimer units(ug/mLFEU).[facility] CenterMagnesium Hgmiu8922-35-47 03:58:00* Test Item Value Reference Range Interpretation Comments Magnesium Level (test code = 21974-2) 1.9 1.3-2.1 [facility] CenterD-Dimer Quantitative (PE/DVT)2017-10-08 03:58:00* Test Item Value Reference Range Interpretation Comments D-Dimer Quantitative (PE/DVT) (test code = 87053-6) 0.86 0. 00-0.45 H As with all in vitro diagnostic tests, the test results should be interpreted by the physician in conjunction with clinical findings and other test results.Test results are reported in NEW D-dimer units(ug/mLFEU).[facility] CenterMagnesium Whgfy0764-27-30 03:58:00* Test Item Value Reference Range Interpretation Comments Magnesium Level (test code = 27242-3) 1.9 1.3-2.1 [facility]
[2020-01-04] MEDS: ONDANSETRON HCL INJ 2MG/ML 2ML 2 MG/ML VIAL IV PRN ×2 (13:16→19:50)
--- NOTE | 2020-01-04 19:06 | NUR ---
BEDSIDE SHIFT REPORT GIVEN TO THE QUARRY SUPERVISOR OPEN PIT RN. PT DENIED FURTHER NEEDS.
--- NOTE | 2020-01-04 19:15 | NUR ---
SBAR REPORT RECEIVED FROM DAYSHIFT RN THONY, PATIENT SEEN SITTING IN HIGH FOWLERS IN BED, AOX4, BLE SWELLING +4, BLE REDNESS AND PITTING EDEMA NOTED, PATIENT REPORTS PAIN LEVEL 9/10, PRN PAIN MEDICATION GIVEN 3 HOURS PRIOR TO THIS RN ONCOMING, PATIENT MADE AWARE OKAY WITH TIME, CALL LIGHT WITHIN REACH
[2020-01-04] MEDS: ZOLPIDEM TARTRATE 10 MG TAB PO SCH (19:40)
[2020-01-05] VITALS (10 sets, daily range): BP systolic 104–158; BP diastolic 58–88
[2020-01-05] MEDS: HYDROMORPHONE 1MG/1ML INJ IV PRN ×7 (02:00→22:07)
[2020-01-05] MEDS: LEVOFLOXACIN 500MG/D5W 100ML 100 ML IV SCH (02:33)
[2020-01-05] MEDS: DIPHENHYDRAMINE HCL INJ 50 MG/ML VIAL IV PRN (02:33)
[2020-01-05] MEDS: ONDANSETRON HCL INJ 2MG/ML 2ML 2 MG/ML VIAL IV PRN ×3 (05:01→16:06)
--- NOTE | 2020-01-05 06:47 | NUR ---
SBAR REPORT GIVEN TO DAYSHIFT RN AT BEDSIDE, NO DISTRESS NOTED CALL LIGHT WITHIN REACH
[2020-01-05 06:53] LABS: BASOPHILS # (AUTO) 0.1 (0.0-0.1); BASOPHILS % 0.5 % (0.0-1.0); EOSINOPHILS % 0.3 % (0.0-6.0); HEMATOCRIT 36.9 % (34.2-44.1); HEMOGLOBIN 12.3 g/dL (12.0-16.0); LYMPHOCYTES # (AUTO) 2.2 (1.0-3.2); LYMPHOCYTES % 14.7 % (18.0-39.1); MEAN CORPUSCULAR HGB CONC 33.3 g/dL (31-35); MEAN CORPUSCULAR VOLUME 101.9 fL (81-99); MONOCYTES # (AUTO) 1.1 (0.2-0.8); MONOCYTES % 6.9 % (4.4-11.3); NEUTROPHILS # (AUTO) 11.3 (2.1-6.9); NEUTROPHILS % 73.8 % (38.7-80.0); PLATELET COUNT 378 x10e3/uL (140-360); RED BLOOD COUNT 3.62 x10e6/uL (3.6-5.1); RED CELL DISTRIBUTION WIDTH 14.4 % (11.7-14.4)
--- NOTE | 2020-01-05 07:00 | NUR ---
BEDSIDE SHIFT REPORT RECEIVED FROM THE TREKKING GUIDE RN. EDUCATED PT ABOUT FALL PRECAUTIONS. PT VERBALIZED UNDERSTANDING. CALL LIGHT WITH IN EASY REACH. INSTRUCTED PT TO USE CALL LIGHT FOR ALL THE NEEDS. BED IS LOW AND LOCKED. SIDE RAILS X2. PT DENIES NEEDS AT THIS TIME.
[2020-01-05 07:14] LABS: ALANINE AMINOTRANSFERASE 46 IU/L (0-55); ALBUMIN 3.7 g/dL (3.5-5.0); ALBUMIN/GLOBULIN RATIO 1.5 (0.8-2.0); ALKALINE PHOSPHATASE 101 IU/L (40-150); BLOOD UREA NITROGEN 13 mg/dL (7-26); BUN/CREATININE RATIO 17 (6-25); CALCIUM 8.2 mg/dL (8.4-10.2); CARBON DIOXIDE 23 mmol/L (22-29); CHLORIDE 103 mmol/L (98-107); CREATININE, SERUM 0.78 mg/dL (0.57-1.11); EST GLOMERULAR FILTRATION RATE > 60 ML/MIN (60-); GLUCOSE 236 mg/dL (74-118); SODIUM 136 mmol/L (136-145)
--- NOTE | 2020-01-05 08:28 | Progress Note ---
DATE: SUBJECTIVE: The patient is a 49-year-old female, who came in with cellulitis of the lower extremities. The patient is on Levaquin at this time. Has a history of lupus erythematosus, history of multiple admissions to the hospital for cellulitis of the lower extremities. The patient came in with leukocytosis, was admitted with IV antibiotics. Currently has some pain in the lower extremities and has been taking hydromorphone 1 mg q.3 hours since admission. OBJECTIVE: VITAL SIGNS: Temperature is 98.1, pulse of 100, blood pressure is 147/81, pulse oximetry of 98% on room air. HEENT: Normocephalic, atraumatic. Pupils are reactive. Oral cavity with poor dentition. CVS: S1 and S2, regular. ABDOMEN: Soft, nontender. EXTREMITIES: Bilateral lower extremity with erythema, redness and swelling extending all the way to the knee area. No calf tenderness present. Positive for global tenderness otherwise in the velasquez area and also in the ankle area. LABORATORY VALUES: From yesterday, white count of 16,000, hemoglobin of 12.5, hematocrit of 36.4. Chemistries; glucose running in the 180s. Urine was negative. Serology, coronavirus was still pending. ASSESSMENT AND PLAN: Ms. Pratibha Raza with: 1. Sepsis secondary to bilateral lower extremities. Continue with IV antibiotics. The patient apparently has responded well to IV Levaquin, will continue the same. 2. Chronic lymphedema/dependent edema. The patient has increased Lasix to three times a day as per Dr. Cardozo. 3. Hypertension. Continue current medication. 4. Leukocytosis. Continue to monitor and trend it down. 5. Anxiety disorder. Continue with current anxiolytic. 6. Lupus erythematosus. Continue monitoring her white count and her immune system monitoring. Further recommendation per clinical course. We will continue to keep the patient in-house. We will add Lovenox 40 mg subcutaneous daily for DVT prophylaxis. MD HA MillsJ/MODL /[id number]
[2020-01-05] MEDS: INSULIN REGULAR, HUMAN 100 UNIT/1 ML 3ML VIAL SQ SCH ×4 (08:30→21:00)
[2020-01-05] MEDS: POTASSIUM CHLORIDE 10MEQ EA PO SCH (08:41)
[2020-01-05] MEDS: FUROSEMIDE INJ 10 MG/ML 2 ML VIAL IV SCH ×2 (08:41→17:00)
[2020-01-05] MEDS: LISINOPRIL 2.5 MG TAB PO SCH (08:42)
[2020-01-05] MEDS: ALPRAZOLAM 0.25 MG TAB PO PRN (11:06)
--- NOTE | 2020-01-05 13:14 | NUR ---
RON BHANDARI AND REPORTED PT ELEVATED HR 114. BP 158/88. PT IS AAOX4. NO DISTRESS NOTED.
[2020-01-05] MEDS ORDERED: ATENOLOL 50 MG TAB PO SCH (13:45)
[2020-01-05] MEDS: ATENOLOL 50 MG TAB PO SCH ×2 (13:49→22:05)
[2020-01-05] MEDS: ENOXAPARIN SOD INJ 40 MG/0.4 ML SYR SC SCH (17:28)
--- NOTE | 2020-01-05 19:15 | NUR ---
BEDSIDE SHIFT REPORT GIVEN TO THE OUTBOARD MOTOR INSPECTOR RN. PT DENIED FURTHER NEEDS.
[2020-01-05] MEDS: ZOLPIDEM TARTRATE 10 MG TAB PO SCH (22:05)
[2020-01-06] VITALS (11 sets, daily range): BP systolic 105–137; BP diastolic 63–76
[2020-01-06] MEDS: FUROSEMIDE INJ 10 MG/ML 2 ML VIAL IV SCH ×4 (01:03→23:28)
[2020-01-06] MEDS: LEVOFLOXACIN 500MG/D5W 100ML 100 ML IV SCH (01:03)
[2020-01-06] MEDS: HYDROMORPHONE 1MG/1ML INJ IV PRN ×5 (01:10→14:10)
[2020-01-06] MEDS: DIPHENHYDRAMINE HCL INJ 50 MG/ML VIAL IV PRN (01:16)
[2020-01-06] MEDS: ALPRAZOLAM 0.25 MG TAB PO PRN ×2 (04:31→15:32)
--- NOTE | 2020-01-06 07:00 | NUR ---
Report give at bedside, patient is in bed, complaints of pain in legs and general body pain. Patient is asking for pain meds, due in 1 hour, on white board for times. Will return in about an hour.
--- NOTE | 2020-01-06 07:11 | NUR ---
SBAR REPORT RECEIVED AT BEDSIDE, PATIENT AWAKE ALERT, ONCOMING SHIFT RN UPDATED WITH PLAN OF CARE CALL LIGHT WITHIN REACH
[2020-01-06 07:21] LABS: BASOPHILS # (AUTO) 0.1 (0.0-0.1); BASOPHILS % 0.6 % (0.0-1.0); EOSINOPHILS # (AUTO) 0.1 (0.0-0.4); EOSINOPHILS % 0.3 % (0.0-6.0); HEMATOCRIT 39.5 % (34.2-44.1); HEMOGLOBIN 12.9 g/dL (12.0-16.0); LYMPHOCYTES # (AUTO) 2.6 (1.0-3.2); LYMPHOCYTES % 17.8 % (18.0-39.1); MEAN CORPUSCULAR HEMOGLOBIN 34.1 pg (28-32); MEAN CORPUSCULAR HGB CONC 32.7 g/dL (31-35); MEAN CORPUSCULAR VOLUME 104.5 fL (81-99); MONOCYTES % 6.6 % (4.4-11.3); NEUTROPHILS # (AUTO) 10.4 (2.1-6.9); NEUTROPHILS % 70.9 % (38.7-80.0); PLATELET COUNT 397 x10e3/uL (140-360); RED BLOOD COUNT 3.78 x10e6/uL (3.6-5.1); RED CELL DISTRIBUTION WIDTH 14.6 % (11.7-14.4)
[2020-01-06 07:30] LABS: ANION GAP 15.2 mmol/L (8-16); BLOOD UREA NITROGEN 13 mg/dL (7-26); BUN/CREATININE RATIO 17 (6-25); CALCIUM 9.1 mg/dL (8.4-10.2); CARBON DIOXIDE 26 mmol/L (22-29); CHLORIDE 102 mmol/L (98-107); CREATININE, SERUM 0.78 mg/dL (0.57-1.11); EST GLOMERULAR FILTRATION RATE > 60 ML/MIN (60-); GLUCOSE 148 mg/dL (74-118); POTASSIUM 4.2 mmol/L (3.5-5.1); SODIUM 139 mmol/L (136-145)
[2020-01-06] MEDS: ONDANSETRON HCL INJ 2MG/ML 2ML 2 MG/ML VIAL IV PRN ×2 (07:42→15:31)
[2020-01-06] MEDS: INSULIN REGULAR, HUMAN 100 UNIT/1 ML 3ML VIAL SQ SCH ×4 (07:59→20:51)
[2020-01-06] MEDS: ATENOLOL 50 MG TAB PO SCH ×2 (08:10→20:19)
[2020-01-06] MEDS: LISINOPRIL 2.5 MG TAB PO SCH (08:10)
--- NOTE | 2020-01-06 09:23 | Progress Note ---
DATE: SUBJECTIVE: The patient is a 49-year-old female who came in with cellulitis of the lower extremities. Currently, on Levaquin, feeling better. Tenderness and erythema have gone down. The patient's pain is better too. Continues to be on pain medication, regular regimen. OBJECTIVE: VITAL SIGNS: Temperature is 97.7, pulse of 64, respiration 21, blood pressure is 113/72, pulse oximetry of 96%. HEENT: Normocephalic, atraumatic. Pupils reactive. CVS: S1 and S2 are normal. Regular rate and rhythm. ABDOMEN: Soft, nontender, nondistended. EXTREMITIES: No clubbing. No cyanosis. Positive edema 2+ with decreased erythema and decreased tenderness. The patient's lymphedema is better today on Lasix. MICROBIOLOGY: Blood cultures, no growth. Urine cultures preliminary shows mixed eri with contamination. IMAGING STUDIES: None done. LABORATORY DATA: Chemistry showed sodium of 136, BUN of 13, creatinine 0.78 with a glucose of 236. ASSESSMENT AND PLAN: Ms. Pratibha Raza with: 1. Cellulitis of the lower extremities with associated lymphedema. Continue on Levaquin. 2. Chronic lymphedema. Continue on IV Lasix. 3. Hypertension. Continue current medication. 4. Leukocytosis, better. Check labs tomorrow. 5. Anxiety disorder. Continue with anxiolytics. 6. Lupus erythematosus. Continue with the current regimen. Further recommendation per clinical course. We will continue with Levaquin. The patient is progressing well. MD TIKA Mills/MODL /[id number]
--- NOTE | 2020-01-06 09:40 | NUR ---
Patient has been given pain meds, her BP is low so her lisinopril has been held. Patient is asking for Xanax for anxiety.
[2020-01-06] MEDS: POTASSIUM CHLORIDE 10MEQ EA PO SCH (09:47)
[2020-01-06] MEDS: ENOXAPARIN SOD INJ 40 MG/0.4 ML SYR SC SCH (16:36)
--- NOTE | 2020-01-06 17:51 | NUR ---
PATIENT HAS BEEN ASKING FOR PAIN MEDS EVERY 3 HOURS. SHE HAS BILATERAL LEG PAIN AT 6/10, SHE HAS ZOFRAN X2, EVERY OTHER PAIN MED DOSE, SHE HAS XANAX X2 TODAY. SHE IS AMBULATING TO THE RESTROOM WITH NO PROBLEMS. SHE DOES NOT KNOW WHEN SHE IS BEING DISCHARGED, BUT SHE STATED SHE THINKS 2 MORE DAYS.
[2020-01-06] MEDS: ZOLPIDEM TARTRATE 10 MG TAB PO SCH (20:20)
[2020-01-07] VITALS (10 sets, daily range): BP systolic 125–162; BP diastolic 76–91
[2020-01-07] MEDS: DIPHENHYDRAMINE HCL INJ 50 MG/ML VIAL IV PRN (02:14)
[2020-01-07] MEDS: LEVOFLOXACIN 500MG/D5W 100ML 100 ML IV SCH (02:14)
[2020-01-07] MEDS: HYDROMORPHONE 1MG/1ML INJ IV PRN ×7 (02:14→21:15)
[2020-01-07 08:23] LABS: BASOPHILS # (AUTO) 0.1 (0.0-0.1); BASOPHILS % 0.4 % (0.0-1.0); EOSINOPHILS # (AUTO) 0.1 (0.0-0.4); EOSINOPHILS % 0.4 % (0.0-6.0); HEMATOCRIT 38.5 % (34.2-44.1); HEMOGLOBIN 12.9 g/dL (12.0-16.0); LYMPHOCYTES # (AUTO) 2.9 (1.0-3.2); MEAN CORPUSCULAR HEMOGLOBIN 33.9 pg (28-32); MEAN CORPUSCULAR HGB CONC 33.5 g/dL (31-35); MONOCYTES # (AUTO) 1.1 (0.2-0.8); MONOCYTES % 7.5 % (4.4-11.3); NEUTROPHILS # (AUTO) 10.4 (2.1-6.9); NEUTROPHILS % 68.9 % (38.7-80.0); PLATELET COUNT 408 x10e3/uL (140-360); RED BLOOD COUNT 3.81 x10e6/uL (3.6-5.1); RED CELL DISTRIBUTION WIDTH 14.3 % (11.7-14.4)
[2020-01-07] MEDS: ONDANSETRON HCL INJ 2MG/ML 2ML 2 MG/ML VIAL IV PRN ×2 (08:32→12:32)
[2020-01-07] MEDS: ATENOLOL 50 MG TAB PO SCH ×2 (08:39→21:21)
[2020-01-07] MEDS: FUROSEMIDE INJ 10 MG/ML 2 ML VIAL IV SCH ×2 (08:39→17:17)
[2020-01-07] MEDS: LISINOPRIL 2.5 MG TAB PO SCH (08:40)
[2020-01-07] MEDS: INSULIN REGULAR, HUMAN 100 UNIT/1 ML 3ML VIAL SQ SCH ×4 (08:43→21:21)
[2020-01-07 09:08] LABS: BLOOD UREA NITROGEN 13 mg/dL (7-26); BUN/CREATININE RATIO 17 (6-25); CALCIUM 8.7 mg/dL (8.4-10.2); CARBON DIOXIDE 26 mmol/L (22-29); CHLORIDE 100 mmol/L (98-107); CREATININE, SERUM 0.76 mg/dL (0.57-1.11); EST GLOMERULAR FILTRATION RATE > 60 ML/MIN (60-); GLUCOSE 139 mg/dL (74-118); SODIUM 138 mmol/L (136-145)
[2020-01-07] MEDS: POTASSIUM CHLORIDE 10MEQ EA PO SCH (09:59)
[2020-01-07] MEDS: ALPRAZOLAM 0.25 MG TAB PO PRN (12:49)
[2020-01-07] MEDS: ENOXAPARIN SOD INJ 40 MG/0.4 ML SYR SC SCH (17:17)
--- NOTE | 2020-01-07 19:00 | NUR ---
RECEIVED PATIENT IN BEDSIDE SHIFT REPORT. PATIENT RESTING IN BED AT THIS TIME. PAIN CONTROLLED AT THIS TIME, RECENTLY RECEIVED PAIN MEDS. BLE ELEVATED IN BED. NO S&S OF DISTRESS NOTED. BED LOCKED IN LOWEST POSITION, SIDE RAILS UPX2, CALL LIGHT IN REACH.
[2020-01-07] MEDS: ZOLPIDEM TARTRATE 10 MG TAB PO SCH (21:21)
[2020-01-08] VITALS (8 sets, daily range): BP systolic 115–143; BP diastolic 78–92
[2020-01-08] MEDS ORDERED: SODIUM CHLORIDE 0.9% 250ML 250 ML ONE (00:27)
[2020-01-08] MEDS: ONDANSETRON HCL INJ 2MG/ML 2ML 2 MG/ML VIAL IV PRN ×2 (00:30→22:13)
[2020-01-08] MEDS: HYDROMORPHONE 1MG/1ML INJ IV PRN ×9 (00:30→22:00)
[2020-01-08] MEDS: LEVOFLOXACIN 500MG/D5W 100ML 100 ML IV SCH (00:37)
[2020-01-08] MEDS: DIPHENHYDRAMINE HCL INJ 50 MG/ML VIAL IV PRN (00:37)
[2020-01-08] MEDS: FUROSEMIDE INJ 10 MG/ML 2 ML VIAL IV SCH ×3 (00:37→16:23)
[2020-01-08 06:01] LABS: BASOPHILS # (AUTO) 0.1 (0.0-0.1); BASOPHILS % 0.6 % (0.0-1.0); EOSINOPHILS # (AUTO) 0.1 (0.0-0.4); EOSINOPHILS % 0.4 % (0.0-6.0); HEMATOCRIT 44.3 % (34.2-44.1); HEMOGLOBIN 14.6 g/dL (12.0-16.0); LYMPHOCYTES # (AUTO) 3.2 (1.0-3.2); LYMPHOCYTES % 18.6 % (18.0-39.1); MONOCYTES # (AUTO) 1.1 (0.2-0.8); MONOCYTES % 6.6 % (4.4-11.3); NEUTROPHILS # (AUTO) 11.9 (2.1-6.9); NEUTROPHILS % 70.1 % (38.7-80.0); PLATELET COUNT 472 x10e3/uL (140-360); RED CELL DISTRIBUTION WIDTH 14.6 % (11.7-14.4)
[2020-01-08 06:23] LABS: ALBUMIN 4.5 g/dL (3.5-5.0); ALBUMIN/GLOBULIN RATIO 1.4 (0.8-2.0); ANION GAP 19.1 mmol/L (8-16); CALCIUM 9.2 mg/dL (8.4-10.2); CREATININE, SERUM 1.07 mg/dL (0.57-1.11); MAGNESIUM 2.1 MG/DL (1.3-2.1); POTASSIUM 4.1 mmol/L (3.5-5.1)
[2020-01-08] MEDS: ALPRAZOLAM 0.25 MG TAB PO PRN (06:39)
[2020-01-08] MEDS: LISINOPRIL 2.5 MG TAB PO SCH (08:38)
[2020-01-08] MEDS: ATENOLOL 50 MG TAB PO SCH ×2 (08:38→22:01)
[2020-01-08] MEDS: POTASSIUM CHLORIDE 10MEQ EA PO SCH (08:38)
[2020-01-08] MEDS: INSULIN REGULAR, HUMAN 100 UNIT/1 ML 3ML VIAL SQ SCH ×4 (08:47→22:13)
[2020-01-08] MEDS: ENOXAPARIN SOD INJ 40 MG/0.4 ML SYR SC SCH (16:26)
[2020-01-08] MEDS: ZOLPIDEM TARTRATE 10 MG TAB PO SCH (22:01)
[2020-01-09] VITALS (9 sets, daily range): BP systolic 99–145; BP diastolic 57–87
[2020-01-09] MEDS: HYDROMORPHONE 1MG/1ML INJ IV PRN ×7 (01:30→22:31)
[2020-01-09] MEDS: DIPHENHYDRAMINE HCL INJ 50 MG/ML VIAL IV PRN (01:34)
[2020-01-09] MEDS: FUROSEMIDE INJ 10 MG/ML 2 ML VIAL IV SCH (01:34)
[2020-01-09] MEDS: LEVOFLOXACIN 500MG/D5W 100ML 100 ML IV SCH (01:34)
[2020-01-09] MEDS: ALPRAZOLAM 0.25 MG TAB PO PRN ×2 (03:01→14:15)
[2020-01-09] MEDS: ONDANSETRON HCL INJ 2MG/ML 2ML 2 MG/ML VIAL IV PRN ×3 (05:56→22:31)
[2020-01-09] MEDS: NYSTATIN SUSPENSION 5 ML UDC PO SCH ×3 (05:56→18:16)
[2020-01-09] MEDS: INSULIN REGULAR, HUMAN 100 UNIT/1 ML 3ML VIAL SQ SCH ×4 (07:30→21:00)
--- NOTE | 2020-01-09 07:37 | NUR ---
PATIENT IN BED RESTING WITH EYES CLOSED, NO DISTRESS NOTED. REDNESS AND SWELLING NOTED TO LOWER EXTREMITIES. BED IN LOWER POSITION, CALL LIGHT AT REACH.
[2020-01-09] MEDS: ATENOLOL 50 MG TAB PO SCH ×2 (08:30→21:00)
[2020-01-09] MEDS: FUROSEMIDE INJ 10 MG/ML 4 ML VIAL IV SCH ×2 (08:30→15:52)
[2020-01-09] MEDS ORDERED: FLUCONAZOLE 100 MG TAB PO SCH (09:00)
[2020-01-09] MEDS: LISINOPRIL 2.5 MG TAB PO SCH (09:00)
[2020-01-09] MEDS: POTASSIUM CHLORIDE 10MEQ EA PO SCH (09:05)
--- NOTE | 2020-01-09 11:19 | NUR ---
PATIENT SITTING AT BED SIDE COLORING, CALL LIGHT AT REACH. INSTRUCTED TO CALL FOR ASSISTANCE NEEDED.
--- NOTE | 2020-01-09 12:57 | NUR ---
SPOKE WITH MD REGARDING PAIN MANAGEMENT, NO NEW ORDER RECEIVED. CONSENT FOR PICC LINE SIGNED, RADIOLOGY NOTIFIED.
--- NOTE | 2020-01-09 15:10 | Diagnostic Imaging Report ---
EXAMINATION: CHEST XRAY LINE PLACEMENT INDICATION: Line placement COMPARISON: Chest radiograph 10/05/2019 FINDINGS: LINES/TUBES:Left PICC line terminates at the superior cavoatrial junction. LUNGS:The lungs are well-inflated. No focal consolidation or pulmonary edema. PLEURA:No pleural effusion or pneumothorax. MEDIASTINUM:The cardiomediastinal silhouette appears normal in size and shape. BONES/SOFT TISSUES:No acute osseous injury. ABDOMEN:No free air under the diaphragm. IMPRESSION: Left PICC line terminates at the superior cavoatrial junction. Signed by: Charo Blanco MD on 01/09/2020 3:06 PM
--- NOTE | 2020-01-09 15:56 | NUR ---
PICC LINE PLACED TO LEFT UPPER ARM AND OK TO USE. PATIENT IN BED WITH CALL LIGHT AT REACH.
[2020-01-09] MEDS: ENOXAPARIN SOD INJ 40 MG/0.4 ML SYR SC SCH (17:13)
--- NOTE | 2020-01-09 20:11 | NUR ---
RECEIVED PT SITTING ON THE BED AOX3 NELLY LATERAL LOWER EXT RED AND SWOLLEN ,PT HAS LEFT UPPER PICC LINE C/O PAIN 06/25 .CALL LIGHT WITH IN REACH ,CONTINUE TO MONITOR
[2020-01-09] MEDS: ZOLPIDEM TARTRATE 10 MG TAB PO SCH (21:00)
[2020-01-10 00:24] VITALS: BP 134/85
[2020-01-10] MEDS: HYDROMORPHONE 1MG/1ML INJ IV PRN ×7 (01:24→23:14)
[2020-01-10 04:00] VITALS: BP 139/83
[2020-01-10] MEDS: ONDANSETRON HCL INJ 2MG/ML 2ML 2 MG/ML VIAL IV PRN ×3 (04:26→20:14)
[2020-01-10] MEDS: LEVOFLOXACIN 750MG/D5W 150ML 150 ML IV SCH (06:07)
--- NOTE | 2020-01-10 06:09 | NUR ---
PT C/O PAIN Q3HRS AND GIVEN ORDERED PAIN MEDICATION .CALL LIGHT WITH IN REACH ,CONTINUE TO MONITOR
[2020-01-10] MEDS: DIPHENHYDRAMINE HCL INJ 50 MG/ML VIAL IV PRN (06:16)
[2020-01-10] MEDS: NYSTATIN SUSPENSION 5 ML UDC PO SCH ×4 (06:16→18:19)
[2020-01-10] MEDS: ALPRAZOLAM 0.25 MG TAB PO PRN (06:28)
--- NOTE | 2020-01-10 06:46 | NUR ---
BEDSIDE REPORT GIVEN TO THE ON COMING NURSE
[2020-01-10] MEDS: INSULIN REGULAR, HUMAN 100 UNIT/1 ML 3ML VIAL SQ SCH ×4 (07:30→21:00)
--- NOTE | 2020-01-10 07:36 | NUR ---
PATIENT C/O PAIN AND WAS MEDICATED ORDERED. REDNESS AND SWELLING REMAINS TO LOWER EXTREMITIES. BED IN LOWER POSITION, CALL LIGHT AT REACH.
[2020-01-10] MEDS: FUROSEMIDE INJ 10 MG/ML 4 ML VIAL IV SCH ×3 (08:00→16:30)
[2020-01-10] MEDS: ATENOLOL 50 MG TAB PO SCH ×2 (08:00→20:26)
[2020-01-10] MEDS ORDERED: LEVOFLOXACIN 500 MG TAB PO SCH (09:00)
[2020-01-10] MEDS: LISINOPRIL 2.5 MG TAB PO SCH (09:19)
[2020-01-10] MEDS: POTASSIUM CHLORIDE 10MEQ EA PO SCH (09:19)
[2020-01-10 09:54] VITALS: BP 147/92
--- NOTE | 2020-01-10 11:34 | NUR ---
PATIENT SITTING UP IN BED WATCHING TV, NO DISTRESS NOTED. CALL LIGHT AT REACH.
[2020-01-10 13:19] VITALS: BP 136/99
--- NOTE | 2020-01-10 15:43 | NUR ---
PATIENT AMBULATING IN HER ROOM. NO COMPLAIN VOICED. WILL CONTINUE TO MONITOR.
--- NOTE | 2020-01-10 16:13 | NUR ---
Nutrition Screen Note RD Recommendation for Physician: -Continue ADA diet Plan of Care: RD following, monitoring for tolerance and adequacy Nutrition reason for involvement: Length of stay Primary Diagnose(s): cellulitis of both lower extremities, elevated WBC count, severe sepsis PMH: lupus, diabetes, hypertension, chronic lymphedema, and anxiety. Ht: 64 in Wt: 164.56 lb BMI: 28.2 kg/m2 IBW:[address] Assessment: (01/10/20) Chart reviewed. Labs and meds reviewed. Pt is a 49 year old female admitted with cellulitis of both lower extremities, elevated WBC count, severe sepsis. Pt reports a good appetite and is eating >50% of meals. 50-100% meal intake recorded in chart. Pt mentioned her weight usually fluctuates. Pt stated she has broken teeth, but does not need any texture modifications to diet order. Pt declined the need for diabetic diet education. Will continue to monitor. Current Diet: 1800 ADA Malnutrition Evaluation (01/10/20) The patient does not meet criteria for a specified degree of malnutrition at this time. Will re-evaluate at follow-up as appropriate. Diet Education Needs Assessment: Pt declined the need for diet education (01/09) Nutrition Care Level: low Signed: Sun Kimble, RD, LD
[2020-01-10] MEDS: ENOXAPARIN SOD INJ 40 MG/0.4 ML SYR SC SCH (17:20)
[2020-01-10 17:31] VITALS: BP 132/89
--- NOTE | 2020-01-10 18:18 | NUR ---
PICC LINE DRESSING CHANGED. PATIENT TOLERATED PROCEDURE WELL.
[2020-01-10 19:38] VITALS: BP 121/73
[2020-01-10] MEDS: ZOLPIDEM TARTRATE 10 MG TAB PO SCH ×2 (20:24→21:10)
[2020-01-11] VITALS (9 sets, daily range): BP systolic 115–132; BP diastolic 69–88
[2020-01-11] MEDS: ONDANSETRON HCL INJ 2MG/ML 2ML 2 MG/ML VIAL IV PRN ×4 (02:23→22:05)
[2020-01-11] MEDS: HYDROMORPHONE 1MG/1ML INJ IV PRN ×7 (02:23→22:05)
--- NOTE | 2020-01-11 05:12 | NUR ---
PT C/O PAIN DURING THE NIGHT GIVEN ORDERED PAIN MEDICATION ,PT RESTING ,CONTINUE TO MONITOR
[2020-01-11] MEDS: DIPHENHYDRAMINE HCL INJ 50 MG/ML VIAL IV PRN (05:30)
[2020-01-11] MEDS: LEVOFLOXACIN 750MG/D5W 150ML 150 ML IV SCH (05:37)
[2020-01-11] MEDS: NYSTATIN SUSPENSION 5 ML UDC PO SCH ×4 (05:37→18:02)
--- NOTE | 2020-01-11 07:15 | NUR ---
BEDSIDE REPORT GIVEN TO THE ONCOMING NURSE
--- NOTE | 2020-01-11 07:20 | NUR ---
PATIENT IS AWAKE, ALERT, AND IN STABLE CONDITION WITH NO S/S OF RESPIRATORY DISTRESS- PATIENT C/O LOWER LEG PAIN 11/25. PATIENT IS AWARE PAIN MEDICATION IS NOT AVAILABLE UNTIL 914. LEFT UPPER ARM PICC LINE IS INTACT AND SALINE LOCKED. CALL LIGHT IS WITHIN REACH, PATIENT INSTRUCTED TO CALL FOR ASSISTANCE NEEDED.
[2020-01-11] MEDS: INSULIN REGULAR, HUMAN 100 UNIT/1 ML 3ML VIAL SQ SCH ×4 (07:30→20:57)
[2020-01-11] MEDS: FUROSEMIDE INJ 10 MG/ML 4 ML VIAL IV SCH ×3 (08:06→15:35)
[2020-01-11] MEDS: POTASSIUM CHLORIDE 10MEQ EA PO SCH (08:06)
[2020-01-11] MEDS: ATENOLOL 50 MG TAB PO SCH ×2 (08:06→20:57)
[2020-01-11 08:27] LABS: BASOPHILS # (AUTO) 0.1 (0.0-0.1); BASOPHILS % 0.6 % (0.0-1.0); EOSINOPHILS # (AUTO) 0.1 (0.0-0.4); EOSINOPHILS % 0.5 % (0.0-6.0); HEMATOCRIT 43.6 % (34.2-44.1); HEMOGLOBIN 14.5 g/dL (12.0-16.0); LYMPHOCYTES # (AUTO) 3.3 (1.0-3.2); LYMPHOCYTES % 17.7 % (18.0-39.1); MEAN CORPUSCULAR HGB CONC 33.3 g/dL (31-35); MEAN CORPUSCULAR VOLUME 102.3 fL (81-99); MONOCYTES # (AUTO) 1.4 (0.2-0.8); MONOCYTES % 7.4 % (4.4-11.3); NEUTROPHILS % 70.7 % (38.7-80.0); PLATELET COUNT 390 x10e3/uL (140-360); RED BLOOD COUNT 4.26 x10e6/uL (3.6-5.1); RED CELL DISTRIBUTION WIDTH 14.2 % (11.7-14.4)
[2020-01-11] MEDS: LISINOPRIL 2.5 MG TAB PO SCH (08:28)
[2020-01-11 08:52] LABS: ALBUMIN 4.3 g/dL (3.5-5.0); ALBUMIN/GLOBULIN RATIO 1.4 (0.8-2.0); ANION GAP 16.4 mmol/L (8-16); CALCIUM 9.4 mg/dL (8.4-10.2); CREATININE, SERUM 0.99 mg/dL (0.57-1.11); MAGNESIUM 1.9 MG/DL (1.3-2.1); POTASSIUM 4.4 mmol/L (3.5-5.1)
[2020-01-11] MEDS: ENOXAPARIN SOD INJ 40 MG/0.4 ML SYR SC SCH (16:00)
--- NOTE | 2020-01-11 19:08 | NUR ---
PATIENT IS IN STABLE CONDITION WITH NO S/S OF RESPIRATORY DISTRESS. PAIN MEDICATION GIVEN AT 1905 FOR BILATERAL LEGS 9/10. CALL LIGHT IS WITHIN REACH, PATIENT INSTRUCTED TO CALL FOR ASSISTANCE NEEDED. BEDSIDE SHIFT REPORT GIVEN TO ONCOMING NURSE.
[2020-01-11] MEDS: ALPRAZOLAM 0.25 MG TAB PO PRN (21:00)
[2020-01-12] VITALS: BP 128/82
[2020-01-12] MEDS: FUROSEMIDE INJ 10 MG/ML 4 ML VIAL IV SCH ×4 (00:26→23:58)
[2020-01-12] MEDS: NYSTATIN SUSPENSION 5 ML UDC PO SCH ×4 (00:26→17:02)
[2020-01-12] MEDS: HYDROMORPHONE 1MG/1ML INJ IV PRN ×7 (01:05→22:00)
[2020-01-12 04:00] VITALS: BP 140/84
[2020-01-12] MEDS: ONDANSETRON HCL INJ 2MG/ML 2ML 2 MG/ML VIAL IV PRN ×4 (04:16→22:14)
[2020-01-12] MEDS ORDERED: PANTOPRAZOLE 40 MG 10ML VIAL IV STA (05:15)
[2020-01-12] MEDS ORDERED: METHYLPREDNISOLONE SOD SUCC 40 MG/ML VIAL 1ML IV ONE (05:15)
[2020-01-12] MEDS: LEVOFLOXACIN 750MG/D5W 150ML 150 ML IV SCH (05:28)
[2020-01-12] MEDS: DIPHENHYDRAMINE HCL INJ 50 MG/ML VIAL IV PRN (05:30)
--- NOTE | 2020-01-12 06:54 | NUR ---
report given to day nurse. patient is resting in the bed. bed is in lowest position and call light is within reach.
--- NOTE | 2020-01-12 07:00 | NUR ---
BEDSIDE SHIFT REPORT RECEIVED FROM THE ELECTROCARDIOGRAPH OPERATOR RN. EDUCATED PT ABOUT FALL PRECAUTIONS. PT VERBALIZED UNDERSTANDING. CALL LIGHT WITH IN EASY REACH. BED IS LOW AND LOCKED. SIDE RAILS X2. ALL SAFETY MEASURES IN PLACE. PT DENIES NEEDS AT THIS TIME.
[2020-01-12 08:00] VITALS: BP 134/107
[2020-01-12] MEDS: INSULIN REGULAR, HUMAN 100 UNIT/1 ML 3ML VIAL SQ SCH ×4 (08:15→21:00)
[2020-01-12] MEDS: LISINOPRIL 2.5 MG TAB PO SCH (08:43)
[2020-01-12] MEDS: ATENOLOL 50 MG TAB PO SCH ×2 (08:44→20:17)
[2020-01-12] MEDS: POTASSIUM CHLORIDE 10MEQ EA PO SCH (08:44)
[2020-01-12 09:05] VITALS: BP 134/107
[2020-01-12 12:00] VITALS: BP 129/76
[2020-01-12] MEDS: ALPRAZOLAM 0.25 MG TAB PO PRN ×2 (17:02→23:58)
[2020-01-12] MEDS: ENOXAPARIN SOD INJ 40 MG/0.4 ML SYR SC SCH (18:20)
--- NOTE | 2020-01-12 19:12 | NUR ---
BEDSIDE SHIFT REPORT GIVEN TO THE INFORMATICS PHARMACIST RN. PT DENIED FURTHER NEEDS.
[2020-01-12 20:00] VITALS: BP 138/84
[2020-01-13] VITALS (7 sets, daily range): BP systolic 110–141; BP diastolic 66–92
--- NOTE | 2020-01-13 01:02 | Progress Note ---
DATE: SUBJECTIVE: The patient still having a lot of pain mostly in the right lower extremity. OBJECTIVE: VITAL SIGNS: Temperature 99.1, pulse 97, blood pressure 138/84, sats 100%. GENERAL: No apparent distress. CARDIOVASCULAR: Regular rate and rhythm. LUNGS: Clear to auscultation bilaterally. ABDOMEN: Good bowel sounds. Soft, nontender. EXTREMITIES: Show questionable abscess in the right lower extremity area about 2 to 3 cm in size in the medial side of the upper calf with some slight increased redness. NEUROLOGIC: Nonfocal. ASSESSMENT AND PLAN: 1. Sepsis, secondary to cellulitis. Continue with antibiotics since the patient has significant allergies. 2. Leukocytosis. Continue to monitor. 3. Lupus. Continue with her current medication list. 4. Anxiety. Continue with her medication. 5. Diabetes. Continue with current care monitoring. 6. Hypertension. Continue with current care with her medications. Please see hospital chart for full details. MD SHARATH Sin/EDVIN /[id number]
[2020-01-13] MEDS: NYSTATIN SUSPENSION 5 ML UDC PO SCH ×4 (01:09→17:46)
[2020-01-13] MEDS: HYDROMORPHONE 1MG/1ML INJ IV PRN ×7 (01:09→22:00)
[2020-01-13] MEDS: ONDANSETRON HCL INJ 2MG/ML 2ML 2 MG/ML VIAL IV PRN ×3 (04:18→22:00)
[2020-01-13] MEDS: LEVOFLOXACIN 750MG/D5W 150ML 150 ML IV SCH (05:50)
[2020-01-13] MEDS: DIPHENHYDRAMINE HCL INJ 50 MG/ML VIAL IV PRN (05:50)
[2020-01-13] MEDS: ALPRAZOLAM 0.25 MG TAB PO PRN (08:09)
[2020-01-13] MEDS: FUROSEMIDE INJ 10 MG/ML 4 ML VIAL IV SCH ×2 (08:09→17:46)
[2020-01-13] MEDS: INSULIN REGULAR, HUMAN 100 UNIT/1 ML 3ML VIAL SQ SCH ×2 (09:43→13:03)
[2020-01-13] MEDS: ATENOLOL 50 MG TAB PO SCH ×2 (09:44→20:42)
[2020-01-13] MEDS: POTASSIUM CHLORIDE 10MEQ EA PO SCH (09:45)
[2020-01-13] MEDS: LISINOPRIL 2.5 MG TAB PO SCH (09:47)
[2020-01-13] MEDS ORDERED: DEXTROSE 50% SYRINGE 50 ML IV PRN ×2 (10:45→17:45)
[2020-01-13] MEDS: ENOXAPARIN SOD INJ 40 MG/0.4 ML SYR SC SCH (17:46)
--- NOTE | 2020-01-13 20:00 | NUR ---
patients blood sugar is 417. MD notified. No new orders received. will continue to monitor patient.
[2020-01-13] MEDS: ZOLPIDEM TARTRATE 10 MG TAB PO PRN (21:02)
[2020-01-13] MEDS: INSULIN LISPRO 100 UNIT/1 ML 3ML VIAL SQ SCH (21:02)
[2020-01-14] VITALS (9 sets, daily range): BP systolic 100–126; BP diastolic 63–86
[2020-01-14] MEDS: NYSTATIN SUSPENSION 5 ML UDC PO SCH ×4 (00:11→17:05)
[2020-01-14] MEDS: FUROSEMIDE INJ 10 MG/ML 4 ML VIAL IV SCH ×3 (00:11→15:21)
[2020-01-14] MEDS: HYDROMORPHONE 1MG/1ML INJ IV PRN ×7 (01:00→22:52)
[2020-01-14] MEDS: ONDANSETRON HCL INJ 2MG/ML 2ML 2 MG/ML VIAL IV PRN ×3 (05:27→19:06)
[2020-01-14] MEDS: LEVOFLOXACIN 750MG/D5W 150ML 150 ML IV SCH (05:27)
--- NOTE | 2020-01-14 06:42 | NUR ---
RECEIVED BEDSIDE SHIFT REPORT FROM OFF GOING NURSE. PATIENT IS RESTING IN BED. NO ACUTE DISTRESS NOTED. CALL LIGHT WITHIN REACH. BED IN THE LOWEST POSITION.
[2020-01-14 07:47] LABS: BASOPHILS # (AUTO) 0.1 (0.0-0.1); BASOPHILS % 0.4 % (0.0-1.0); EOSINOPHILS % 0.2 % (0.0-6.0); HEMATOCRIT 40.1 % (34.2-44.1); LYMPHOCYTES # (AUTO) 3.5 (1.0-3.2); LYMPHOCYTES % 21.7 % (18.0-39.1); MEAN CORPUSCULAR HEMOGLOBIN 34.2 pg (28-32); MEAN CORPUSCULAR HGB CONC 32.4 g/dL (31-35); MEAN CORPUSCULAR VOLUME 105.5 fL (81-99); MONOCYTES # (AUTO) 1.2 (0.2-0.8); MONOCYTES % 7.5 % (4.4-11.3); NEUTROPHILS # (AUTO) 10.8 (2.1-6.9); NEUTROPHILS % 67.5 % (38.7-80.0); PLATELET COUNT 344 x10e3/uL (140-360)
[2020-01-14 07:49] LABS: ALBUMIN 3.7 g/dL (3.5-5.0); ALBUMIN/GLOBULIN RATIO 1.5 (0.8-2.0); ANION GAP 15.1 mmol/L (8-16); CALCIUM 8.9 mg/dL (8.4-10.2); CREATININE, SERUM 1.1 mg/dL (0.57-1.11); MAGNESIUM 1.8 MG/DL (1.3-2.1); POTASSIUM 4.1 mmol/L (3.5-5.1)
[2020-01-14] MEDS: ATENOLOL 50 MG TAB PO SCH ×2 (08:00→21:18)
[2020-01-14] MEDS: LISINOPRIL 2.5 MG TAB PO SCH (08:25)
[2020-01-14] MEDS: INSULIN GLARGINE 100 UNITS/ML VIAL SQ SCH ×2 (08:30→21:18)
[2020-01-14] MEDS: INSULIN LISPRO 100 UNIT/1 ML 3ML VIAL SQ SCH ×4 (08:30→21:18)
[2020-01-14] MEDS: POTASSIUM CHLORIDE 10MEQ EA PO SCH (08:30)
[2020-01-14 08:48] LABS: PLATELET ESTIMATE ADEQUATE; PLATELET MORPHOLOGY COMMENT NORMAL; RBC MORPHOLOGY COMMENT NORMAL
[2020-01-14] MEDS: ALPRAZOLAM 0.25 MG TAB PO PRN (09:57)
--- NOTE | 2020-01-14 11:19 | Diagnostic Imaging Report ---
TECHNIQUE: Computed tomography imaging of the right lower extremity was performed WITHOUT injected contrast. Dose modulation, iterative reconstruction, and/or weight based adjustment of the mA/kV was utilized to reduce the radiation dose to as low as reasonably achievable. HISTORY: Cellulitis, evaluate for abscess COMPARISON: None available. FINDINGS: No fracture. Bone demineralization. Joint spaces preserved. Multiple soft tissue markers placed. Areas of skin thickening and subcutaneous edema most prominent involving the mid to lower calf through the foot. No well-defined abscess. IMPRESSION: Right lower extremity edema/cellulitis. No abscess. Signed by: Dr. Howard Willis M.D. on 01/14/2020 11:15 AM
[2020-01-14] MEDS: ENOXAPARIN SOD INJ 40 MG/0.4 ML SYR SC SCH (17:05)
--- NOTE | 2020-01-14 19:06 | NUR ---
BEDSIDE SHIFT REPORT GIVEN TO ONCOMING NURSE. PATIENT IS IN STABLE CONDITION. CALL LIGHT WITHIN REACH. BED IN THE LOWEST POSITION.
--- NOTE | 2020-01-14 19:15 | NUR ---
Patient visited in room during nursing rounds. Patient alert and oriented x3. Ambulatory in room with standby assist. BLE with cellulitis and with pitting edema. Pt has frequent pain on BLE and will be medicated accordingly. Call young within reach. Will monitor pt closely.
[2020-01-15] VITALS (8 sets, daily range): BP systolic 114–139; BP diastolic 70–84
[2020-01-15] MEDS: FUROSEMIDE INJ 10 MG/ML 4 ML VIAL IV SCH ×4 (00:30→23:42)
[2020-01-15] MEDS: NYSTATIN SUSPENSION 5 ML UDC PO SCH ×5 (00:30→23:42)
[2020-01-15] MEDS: ONDANSETRON HCL INJ 2MG/ML 2ML 2 MG/ML VIAL IV PRN ×4 (01:58→20:30)
[2020-01-15] MEDS: HYDROMORPHONE 1MG/1ML INJ IV PRN ×8 (01:58→23:42)
[2020-01-15] MEDS: DIPHENHYDRAMINE HCL INJ 50 MG/ML VIAL IV PRN (05:08)
[2020-01-15] MEDS: LEVOFLOXACIN 750MG/D5W 150ML 150 ML IV SCH (05:10)
--- NOTE | 2020-01-15 06:36 | NUR ---
RECEIVED BEDSIDE SHIFT REPORT FROM OFF GOING NURSE. PATIENT IS IN STABLE CONDITION, NO S/S OF DISTRESS NOTED. CALL LIGHT WITHIN REACH. BED IN THE LOWEST POSITION.
[2020-01-15] MEDS: INSULIN LISPRO 100 UNIT/1 ML 3ML VIAL SQ SCH ×4 (08:07→20:30)
[2020-01-15] MEDS: INSULIN GLARGINE 100 UNITS/ML VIAL SQ SCH ×2 (08:07→20:30)
[2020-01-15] MEDS: ATENOLOL 50 MG TAB PO SCH ×2 (08:16→20:30)
[2020-01-15] MEDS: POTASSIUM CHLORIDE 10MEQ EA PO SCH (08:16)
[2020-01-15] MEDS: LISINOPRIL 2.5 MG TAB PO SCH (08:17)
[2020-01-15] MEDS: ALPRAZOLAM 0.25 MG TAB PO PRN (12:00)
[2020-01-15] MEDS: ENOXAPARIN SOD INJ 40 MG/0.4 ML SYR SC SCH (16:38)
--- NOTE | 2020-01-15 19:14 | NUR ---
BEDSIDE SHIFT REPORT GIVEN TO ONCOMING NURSE. PATIENT IS RESTING IN BED. NO ACUTE DISTRESS NOTED AT THIS TIME. CALL LIGHT WITHIN REACH. BED IN THE LOWEST POSITION.
--- NOTE | 2020-01-15 19:20 | NUR ---
Patient visited in room during nursing rounds. Patient alert and oriented x3. Ambulatory in room with standby assist. BLE with cellulitis and with pitting edema. Pt on scheduled IV antibiotic treatment. Pt has frequent pain on right leg and will be medicated accordingly. Call young within reach. Will monitor pt closely.
--- NOTE | 2020-01-15 23:00 | NUR ---
Patient took a bath by self. Bedsheets and linens were changed.
[2020-01-16] VITALS (8 sets, daily range): BP systolic 108–131; BP diastolic 69–88
[2020-01-16] MEDS: ZOLPIDEM TARTRATE 10 MG TAB PO PRN (00:32)
[2020-01-16] MEDS: HYDROMORPHONE 1MG/1ML INJ IV PRN ×7 (02:55→21:48)
[2020-01-16] MEDS: ONDANSETRON HCL INJ 2MG/ML 2ML 2 MG/ML VIAL IV PRN ×4 (02:55→21:48)
[2020-01-16] MEDS: DIPHENHYDRAMINE HCL INJ 50 MG/ML VIAL IV PRN (06:16)
[2020-01-16] MEDS: LEVOFLOXACIN 750MG/D5W 150ML 150 ML IV SCH (06:20)
[2020-01-16 06:34] LABS: ALANINE AMINOTRANSFERASE 145 IU/L (0-55); ALBUMIN 3.5 g/dL (3.5-5.0); ALBUMIN/GLOBULIN RATIO 1.5 (0.8-2.0); ALKALINE PHOSPHATASE 118 IU/L (40-150); ANION GAP 15.5 mmol/L (8-16); BLOOD UREA NITROGEN 18 mg/dL (7-26); BUN/CREATININE RATIO 20 (6-25); CALCIUM 8.5 mg/dL (8.4-10.2); CARBON DIOXIDE 26 mmol/L (22-29); CHLORIDE 100 mmol/L (98-107); CREATININE, SERUM 0.91 mg/dL (0.57-1.11); EST GLOMERULAR FILTRATION RATE > 60 ML/MIN (60-); GLUCOSE 265 mg/dL (74-118); MAGNESIUM 1.8 MG/DL (1.3-2.1); POTASSIUM 3.5 mmol/L (3.5-5.1); SODIUM 138 mmol/L (136-145)
[2020-01-16 06:55] LABS: BASOPHILS # (AUTO) 0.1 (0.0-0.1); BASOPHILS % 0.6 % (0.0-1.0); EOSINOPHILS # (AUTO) 0.1 (0.0-0.4); EOSINOPHILS % 0.5 % (0.0-6.0); HEMATOCRIT 38.2 % (34.2-44.1); HEMOGLOBIN 12.6 g/dL (12.0-16.0); LYMPHOCYTES # (AUTO) 2.9 (1.0-3.2); LYMPHOCYTES % 17.2 % (18.0-39.1); MEAN CORPUSCULAR HEMOGLOBIN 33.9 pg (28-32); MEAN CORPUSCULAR VOLUME 102.7 fL (81-99); MONOCYTES # (AUTO) 1.1 (0.2-0.8); MONOCYTES % 6.6 % (4.4-11.3); NEUTROPHILS # (AUTO) 11.8 (2.1-6.9); NEUTROPHILS % 70.7 % (38.7-80.0); PLATELET COUNT 237 x10e3/uL (140-360); RED BLOOD COUNT 3.72 x10e6/uL (3.6-5.1); RED CELL DISTRIBUTION WIDTH 13.8 % (11.7-14.4)
--- NOTE | 2020-01-16 07:00 | NUR ---
RECEIVED BEDSIDE SHIFT REPORT FROM OFF GOING NIGHT NURSE. PATIENT IN STABLE CONDITION, NO S/S OF DISTRESS NOTED. RESPIRATIONS EVEN AND NONLABORED. PATIENT ABLE TO MAKE NEEDS KNOWN. NO PAIN VOICED. IV SITE ASYMPTOMATIC AND PATENT, TRANSPARENT DRESSING C/D/I. BED IN LOWEST POSITION AND LOCKED, SIDE RAILS X 2, NON SKID SOCKS. CALL LIGHT WITHIN REACH.
[2020-01-16] MEDS: INSULIN LISPRO 100 UNIT/1 ML 3ML VIAL SQ SCH ×4 (07:30→21:45)
[2020-01-16 07:41] LABS: PLATELET ESTIMATE ADEQUATE; PLATELET MORPHOLOGY COMMENT RARE EDTA CLUMPING; RBC MORPHOLOGY COMMENT NORMAL
[2020-01-16] MEDS: ATENOLOL 50 MG TAB PO SCH ×2 (08:00→20:43)
[2020-01-16] MEDS: FUROSEMIDE INJ 10 MG/ML 4 ML VIAL IV SCH ×2 (08:00→15:55)
[2020-01-16] MEDS: INSULIN GLARGINE 100 UNITS/ML VIAL SQ SCH ×2 (09:00→21:45)
[2020-01-16] MEDS: POTASSIUM CHLORIDE 10MEQ EA PO SCH (09:13)
[2020-01-16] MEDS: LISINOPRIL 2.5 MG TAB PO SCH (09:13)
[2020-01-16] MEDS: ENOXAPARIN SOD INJ 40 MG/0.4 ML SYR SC SCH (16:50)
[2020-01-16] MEDS: ALPRAZOLAM 0.25 MG TAB PO PRN (16:56)
--- NOTE | 2020-01-16 19:00 | NUR ---
Resumed care of patient. Patient awake and sitting up in bed, no s/s of distress at this time. Bed locked and in lowest position, side rails upx2, call light placed within reach. Patient instructed to call for assistance if needed, verbalized understanding. All safety measures in place.
--- NOTE | 2020-01-16 19:23 | NUR ---
COMPLETED BEDSIDE SHIFT REPORT AND ROUNDING WITH ONCOMING NIGHT NURSE. PATIENT IN STABLE CONDITION, NO S/S OF DISTRESS NOTED. RESPIRATIONS EVEN AND NONLABORED. PATIENT ABLE TO MAKE NEEDS KNOWN. NO PAIN VOICED. IV SITE ASYMPTOMATIC AND PATENT, TRANSPARENT DRESSING C/D/I. BED IN LOWEST POSITION AND LOCKED, SIDE RAILS X 2, NON SKID SOCKS. CALL LIGHT WITHIN REACH.
--- NOTE | 2020-01-16 21:45 | NUR ---
Patient refusing PICC line dressing change at this time, stating, "There's no point since I'm going home tomorrow." Will follow up.
[2020-01-17] VITALS (8 sets, daily range): BP systolic 98–141; BP diastolic 63–87
[2020-01-17] MEDS: FUROSEMIDE INJ 10 MG/ML 4 ML VIAL IV SCH ×3 (00:54→16:19)
[2020-01-17] MEDS: HYDROMORPHONE 1MG/1ML INJ IV PRN ×6 (00:54→22:04)
[2020-01-17] MEDS: ZOLPIDEM TARTRATE 10 MG TAB PO PRN (01:47)
--- NOTE | 2020-01-17 03:57 | NUR ---
Patient resting quietly in bed, respirations even and unlabored, stating that she does not want PRN pain medication at this time. Patient instructed to call nurse if needed, verbalized understanding. All safety measures in place.
[2020-01-17] MEDS: DIPHENHYDRAMINE HCL INJ 50 MG/ML VIAL IV PRN (05:07)
[2020-01-17] MEDS: LEVOFLOXACIN 750MG/D5W 150ML 150 ML IV SCH (05:07)
[2020-01-17] MEDS: ATENOLOL 50 MG TAB PO SCH ×2 (08:00→20:44)
[2020-01-17] MEDS: POTASSIUM CHLORIDE 10MEQ EA PO SCH (08:32)
[2020-01-17] MEDS: INSULIN LISPRO 100 UNIT/1 ML 3ML VIAL SQ SCH ×4 (08:33→20:44)
[2020-01-17] MEDS: LISINOPRIL 2.5 MG TAB PO SCH (08:33)
[2020-01-17] MEDS: INSULIN GLARGINE 100 UNITS/ML VIAL SQ SCH ×2 (08:37→20:44)
[2020-01-17] MEDS: ALPRAZOLAM 0.25 MG TAB PO PRN (11:14)
[2020-01-17] MEDS: ONDANSETRON HCL INJ 2MG/ML 2ML 2 MG/ML VIAL IV PRN ×2 (12:46→18:57)
[2020-01-17] MEDS: ENOXAPARIN SOD INJ 40 MG/0.4 ML SYR SC SCH (16:20)
--- NOTE | 2020-01-17 16:35 | NUR ---
Nutrition Screen Note RD Recommendation for Physician: -Continue ADA diet Plan of Care: RD following, monitoring for tolerance and adequacy Nutrition reason for involvement: follow up Primary Diagnose(s): cellulitis of both lower extremities, elevated WBC count, severe sepsis PMH: lupus, diabetes, hypertension, chronic lymphedema, and anxiety. Ht: 64 in Wt: 174 lbs (01/16) 164.56 lb (01/09) - Suspect possible weight error or flid related BMI: 28.2 kg/m2 IBW:[address] Assessment: (01/17/20) Follow up. Chart reviewed. Pt remains with adequate intake and is consuming 75-100% of meals per documentation. Will continue to monitor. (01/10/20) Chart reviewed. Labs and meds reviewed. Pt is a 49 year old female admitted with cellulitis of both lower extremities, elevated WBC count, severe sepsis. Pt reports a good appetite and is eating >50% of meals. 50-100% meal intake recorded in chart. Pt mentioned her weight usually fluctuates. Pt stated she has broken teeth, but does not need any texture modifications to diet order. Pt declined the need for diabetic diet education. Will continue to monitor. Current Diet: 1800 ADA Malnutrition Evaluation (01/10/20) The patient does not meet criteria for a specified degree of malnutrition at this time. Will re-evaluate at follow-up as appropriate. Diet Education Needs Assessment: Pt declined the need for diet education (01/09) Nutrition Care Level: low Signed: Sun Kimble, RD, LD
--- NOTE | 2020-01-17 19:00 | NUR ---
Resumed care of patient. Patient awake and resting in bed, no s/s of distress at this time. All safety measures in place.
--- NOTE | 2020-01-17 19:39 | NUR ---
report given to oncoming nurse walking rounds complete.
[2020-01-18] VITALS: BP 137/87
[2020-01-18] MEDS: HYDROMORPHONE 1MG/1ML INJ IV PRN ×2 (01:05→04:04)
[2020-01-18] MEDS: FUROSEMIDE INJ 10 MG/ML 4 ML VIAL IV SCH ×2 (01:05→08:00)
[2020-01-18] MEDS: ONDANSETRON HCL INJ 2MG/ML 2ML 2 MG/ML VIAL IV PRN ×2 (01:05→07:02)
[2020-01-18 04:00] VITALS: BP 153/84
--- NOTE | 2020-01-18 05:19 | NUR ---
Dr. Cardozo here to see patient. Per MD plan to discharge patient home at around 8AM. Per MD okay to give patient one more dose of Dilaudid prior to removing PICC line. Will pass along to day shift.
[2020-01-18] MEDS: DIPHENHYDRAMINE HCL INJ 50 MG/ML VIAL IV PRN (05:25)
[2020-01-18] MEDS: LEVOFLOXACIN 750MG/D5W 150ML 150 ML IV SCH (05:25)
--- NOTE | 2020-01-18 06:25 | Discharge Summary ---
DISCHARGE DIAGNOSES: 1. Bilateral lower extremity cellulitis. 2. Chronic lymphedema. 3. Diabetes. HISTORY OF PRESENT ILLNESS AND HOSPITAL COURSE: The patient is a lady, who has a history of lupus and bilateral lymphedema, who came in with severe cellulitis of the lower extremities, where she was placed on p.o. antibiotic that she can tolerate, which is Levaquin, which is very slow to help heal her cellulitis. There is questionable concern for possible abscess on the right leg area, but CT scan showed no abscess, shows significant cellulitis. At the time of discharge, the patient's cellulitis was much improved that she could be switched over to p.o. Levaquin and discharged with followup with me in 1 to 2 weeks. Please see hospital chart for full details. MD SHARATH Sin/EDVIN /[id number]
[2020-01-18] MEDS ORDERED: HYDROMORPHONE 1MG/1ML INJ IV ONE (07:00)
[2020-01-18] MEDS: INSULIN LISPRO 100 UNIT/1 ML 3ML VIAL SQ SCH (07:30)
--- NOTE | 2020-01-18 07:34 | NUR ---
PATIENT IN BED WITH HEAD OF BED ELEVATED, NO DISTRESS NOTED. C/O PAIN AND WAS MEDICATED ORDERED. BED IN LOWER POSITION, CALL LIGHT AT REACH.
[2020-01-18 08:00] VITALS: BP 150/97
[2020-01-18] MEDS: ATENOLOL 50 MG TAB PO SCH (08:00)
--- NOTE | 2020-01-18 09:05 | NUR ---
PATIENT DISCHARGED HOME. DISCHARGE INSTRUCTIONS AND FOLLOW UP GIVEN TO PATIENT, SHE VERBALIZED UNDERSTANDING. PICC LINE TO LEFT UPPER ARM REMOVED WITH TIP INTACT, PRESSURE APPLIED FOR 5 MINUTES. ALL PERSONAL ITEMS TAKEN WITH PATIENT. LEFT UNIT PER WHEEL CHAIR TO FRONT LOBBY IN STABLE CONDITION.
== END 2020-01-18 08:58 | disposition home or self-care (01) | DRG 872 ==
LOC: ER 03:00 → ERHOLD 04:10 → MED/SURG3 04:58
PROVIDERS: ADMIT Internal Medicine; ATTEND Internal Medicine
DX: A41.9 Sepsis, unspecified organism (principal); L03.90 Cellulitis, unspecified; M32.9 Systemic lupus erythematosus, unspecified; I89.0 Lymphedema, not elsewhere classified; E11.9 Type 2 diabetes mellitus without complications; F41.9 Anxiety disorder, unspecified; I10 Essential (primary) hypertension; Z11.59 Encounter for screening for other viral diseases
CPT/HCPCS: 36415; 36569; 71045; 74470; 80048; 80053; 81001; 82948; 83605; 83735; 85025; 87040; 87086; 96372; 99284; J1170; J1200; J1650; J1817; J1940; J1956; J2405; J2920; J7030; J7050

== ENCOUNTER 2020-03-03 00:38 | Emergency (ER) | payer OTHER ==
[~2020-03-03] VITALS: Ht 162.6 cm; Wt 78.9 kg
[~2020-03-03 00:38] MED LIST changes: +LUNESTA3 MG PO
[2020-03-03 01:46] LABS: BASOPHILS # (AUTO) 0.1 (0.0-0.1); BASOPHILS % 0.8 % (0.0-1.0); EOSINOPHILS # (AUTO) 0.1 (0.0-0.4); EOSINOPHILS % 0.5 % (0.0-6.0); HEMATOCRIT 42.6 % (34.2-44.1); HEMOGLOBIN 14.2 g/dL (12.0-16.0); LYMPHOCYTES # (AUTO) 3.3 (1.0-3.2); LYMPHOCYTES % 25.4 % (18.0-39.1); MEAN CORPUSCULAR HEMOGLOBIN 33.8 pg (28-32); MEAN CORPUSCULAR HGB CONC 33.3 g/dL (31-35); MEAN CORPUSCULAR VOLUME 101.4 fL (81-99); MONOCYTES # (AUTO) 0.8 (0.2-0.8); MONOCYTES % 6.1 % (4.4-11.3); NEUTROPHILS # (AUTO) 8.2 (2.1-6.9); NEUTROPHILS % 63.1 % (38.7-80.0); PLATELET COUNT 380 x10e3/uL (140-360); RED CELL DISTRIBUTION WIDTH 13.6 % (11.7-14.4)
[2020-03-03 02:11] LABS: ALANINE AMINOTRANSFERASE 84 IU/L (0-55); ALBUMIN 3.2 g/dL (3.5-5.0); ALBUMIN/GLOBULIN RATIO 0.9 (0.8-2.0); ALKALINE PHOSPHATASE 135 IU/L (40-150); ANION GAP 15.9 mmol/L (8-16); BLOOD UREA NITROGEN 10 mg/dL (7-26); BUN/CREATININE RATIO 13 (6-25); CALCIUM 9.2 mg/dL (8.4-10.2); CARBON DIOXIDE 24 mmol/L (22-29); CHLORIDE 103 mmol/L (98-107); CREATININE, SERUM 0.76 mg/dL (0.57-1.11); EST GLOMERULAR FILTRATION RATE > 60 ML/MIN (60-); GLUCOSE 233 mg/dL (74-118); POTASSIUM 3.9 mmol/L (3.5-5.1); SODIUM 139 mmol/L (136-145)
== END 2020-03-03 02:40 | disposition home or self-care (01) ==
LOC: ER 01:22
DX: L03.116 Cellulitis of left lower limb (principal); L03.115 Cellulitis of right lower limb; E11.65 Type 2 diabetes mellitus with hyperglycemia; I10 Essential (primary) hypertension; E78.5 Hyperlipidemia, unspecified; M32.9 Systemic lupus erythematosus, unspecified; A69.20 Lyme disease, unspecified
CPT/HCPCS: 36415; 80053; 85025; 87040; 99283

== ENCOUNTER 2020-03-11 16:54 | Inpatient (IN) | payer OTHER ==
[~2020-03-11] VITALS: Ht 162.6 cm; Wt 81.9 kg
[2020-03-11] MEDS ORDERED: ONDANSETRON HCL INJ 2MG/ML 2ML 2 MG/ML VIAL IV STA (17:07)
[2020-03-11] MEDS ORDERED: HYDROMORPHONE 1MG/1ML INJ IV STA (17:07)
[2020-03-11 17:46] LABS: BASOPHILS # (AUTO) 0.1 (0.0-0.1); BASOPHILS % 0.5 % (0.0-1.0); EOSINOPHILS # (AUTO) 0.1 (0.0-0.4); EOSINOPHILS % 0.3 % (0.0-6.0); HEMATOCRIT 39.4 % (34.2-44.1); HEMOGLOBIN 13.2 g/dL (12.0-16.0); LYMPHOCYTES # (AUTO) 3.3 (1.0-3.2); LYMPHOCYTES % 18.1 % (18.0-39.1); MEAN CORPUSCULAR HEMOGLOBIN 33.9 pg (28-32); MEAN CORPUSCULAR HGB CONC 33.5 g/dL (31-35); MEAN CORPUSCULAR VOLUME 101.3 fL (81-99); MONOCYTES # (AUTO) 1.1 (0.2-0.8); MONOCYTES % 6.1 % (4.4-11.3); NEUTROPHILS # (AUTO) 13.2 (2.1-6.9); PLATELET COUNT 393 x10e3/uL (140-360); RED BLOOD COUNT 3.89 x10e6/uL (3.6-5.1); RED CELL DISTRIBUTION WIDTH 14.3 % (11.7-14.4)
[2020-03-11 18:02] LABS: INR 0.89; PROTHROMBIN TIME 12.5 seconds (11.9-14.5)
[2020-03-11 18:03] LABS: PARTIAL THROMBOPLASTIN TIME 22.7 seconds (23.8-35.5)
[2020-03-11 18:05] LABS: ALANINE AMINOTRANSFERASE 67 IU/L (0-55); ALBUMIN 3.5 g/dL (3.5-5.0); ALBUMIN/GLOBULIN RATIO 0.9 (0.8-2.0); ALKALINE PHOSPHATASE 106 IU/L (40-150); ANION GAP 16.1 mmol/L (8-16); BLOOD UREA NITROGEN 15 mg/dL (7-26); BUN/CREATININE RATIO 19 (6-25); CALCIUM 8.7 mg/dL (8.4-10.2); CARBON DIOXIDE 25 mmol/L (22-29); CHLORIDE 102 mmol/L (98-107); CREATINE KINASE 90 IU/L (29-168); CREATININE, SERUM 0.77 mg/dL (0.57-1.11); EST GLOMERULAR FILTRATION RATE > 60 ML/MIN (60-); GLUCOSE 161 mg/dL (74-118); MAGNESIUM 1.7 MG/DL (1.3-2.1); POTASSIUM 4.1 mmol/L (3.5-5.1); SODIUM 139 mmol/L (136-145)
[2020-03-11 18:18] LABS: BILIRUBIN,URINE NEGATIVE (NEGATIVE); CLARITY,URINE SL CLOUDY (CLEAR); COLOR,URINE YELLOW (YELLOW); KETONES,URINE NEGATIVE (NEGATIVE); LEUKOCYTE ESTERASE ,URINE NEGATIVE (NEGATIVE); NITRITE,URINE NEGATIVE (NEGATIVE); PROTEIN,URINE DIPSTICK NEGATIVE (NEGATIVE); URINE UROBILINOGEN 0.2 mg/dL (0.2 - 1)
--- OUTSIDE RECORDS SUMMARY | 2020-03-11 18:22 | XMS REPORT | Continuity of Care Document ---
Author Author [facility] Organization [facility] Address [address] [place] [address] Phone Unavailable Care Team Providers Care Air Value Tester Name Role Phone SOLANGE SORIA, MD ZURITA PCP PARMINDER NARVAEZ Attphys Unavailable DARBYESTER Attphys Unavailable BERNA, S AMBICA Attphys Unavailable SWEET, A LAIRD Attphys Unavailable PARMINDER NARVAEZ Admphys Unavailable Payers Payer Name Policy Type Policy Number Effective Date Expiration Date Kiko Marin [facility] [id number] 2011 00:00:00 [facility] Problems Condition Name Condition Details Condition Category Status Onset Date Resolution Date Last Treatment Date Treating Clinician Comments Source Chronic bronchitis Chronic bronchitis Problem Active 2014-07-02 00:00:0 0 [facility] Candidiasis of mouth and esophagus Thrush of mouth and esophagus Pr oblem Active 2014-07-02 00:00:00 [facility] Cellulitis Cellulitis Problem Active [facility] Edema of foot Pedal edema Problem Active [facility] Hypokalemia Hypokalemia Problem Active [facility] Edema Edema Problem Active [facility] Leukocytosis Elevated WBC count Problem Active [facility] Lupus erythematosus Lupus Problem Active [facility] Fall Fall Problem Active [facility] Laceration of left forearm Laceration of left forearm Problem Active [facility] Severe sepsis Severe sepsis Problem Active [facility] Urinary tract infection UTI (urinary tract infection) Problem Active [facility] Laceration of right knee Problem Active [facility] Cellulitis of both lower extremities Problem Active [facility] Cellulitis and abscess of foot excluding toe Problem Active [facility] Allergies, Adverse Reactions, Alerts Allergy Name Allergy Type Status Severity Reaction(s) Onset Date Inacti ve Date Treating Clinician Comments Source Meropenem Propensity to adverse reactions Active hives 803 00:00:00 [facility] Cefepime Allergy to substance Active 2018-11-17 00:00:00 [facility] Linezolid Allergy to substance Active Moderate 2018-04-11 00:00:00 [facility] Fish Containing Products Allergy to substance Active Severe 2018-04-09 00:00:00 [facility] Iodine Allergy to substance Active 2018-04-09 00:00:00 [facility] Neomycin Allergy to substance Active Moderate causes skin to get crusty and yellow 2018-04-09 00:00:00 [facility] Bacitracin Allergy to substance Active Moderate causes skin to get yellow and crusty 2018-04-09 00:00:00 [facility] Vancomycin Allergy to substance Active Severe honey symdrome ? 2018-04-09 00:00:00 [facility] Polymyxin b Allergy to substance Active Moderate causes skin to get crusty and yellow 2018-04-09 00:00:00 [facility] shellfish derived Allergy to substance Active Severe 2018-03-19 3 00:00:00 [facility] CHITOSAN Allergy to substance Active 2016-07-06 00:00:00 [facility] Social History Social Habit Start Date Stop Date Quantity Comments Source Sex Assigned At 1970 00:00:00 1970 00:00:00 Female [facility] Medications Ordered Medication Name Filled Medication Name Start Date Stop Da te Current Medication? Ordering Clinician Indication Dosage Frequency Signature (SIG) Comments Components Source Albuterol Sulfate (Ventolin Hfa) 18 Gm HFA.AER.AD Albu terol Sulfate (Ventolin Hfa) 18 Gm HFA.AER.AD Yes Every 4 Hours as needed for Allergy [facility] Alprazolam Alprazolam Yes .25 Three Time s A Day as needed for Anxiety [facility] Atenolol Atenolol Yes 25 Twice A Day [facility] Cyclobenzaprine Hcl Cyclobenzaprine Hcl Yes 10 Three Times A Day as needed for Muscle Spasms [facility] Epinephrine Epinephrine Yes C HI [facility] Eszopiclone (Lunesta) 3 Mg TABLET Eszopiclone (Lunesta) 3 Mg TABLET Yes 3 Bedtime [facility] Furosemide Furosemide Yes 40 Daily as needed fo r Swelling [facility] Glimepiride Glimepiride Yes 4 Twice A Day [facility] Hydrocodone Bit/Acetaminophen (Hydrocodon-Acetaminophn 10-325) 1 Each TABLET Hydrocodone Bit/Acetaminophen (Hydrocodon-Acetaminophn 10-325) 1 Each TABLET Yes 1 Every 8 Hours as needed for Mode rate Pain (4-6) [facility] Lisinopril Lisinopril Yes 2.5 Daily as needed fo r Blood Pressure [facility] Promethazine Hcl Promethazine Hcl Yes 25 Q 6 H Prn [facility] Santyl Santyl Yes 1 Daily [facility] Sertraline Hcl Sertraline Hcl Yes 50 Da justen as needed for Agitation [facility] Zolpidem Tartrate Zolpidem Tartrate 2020-01-04 00:00:00 No 10 Bedtime [facility] Blood Sugar Diagnostic (One Touch Ultra Test Strips) 1 Each STRIP Blood Sugar Diagnostic (One Touch Ultra Test Strips) 1 Each STRIP 2019-02-07 00:00:00 No [facility] Carisoprodol (Soma) 350 Mg TABLET Carisoprodol (Soma) 350 Mg TAB LET 2018-11-18 00:00:00 No 350 Q8hrs [facility] Cephalexin Cephalexin 2018-11-18 00:00:00 No 750 Thr ee Times A Day [facility] Cephalexin Monohydrate (Keflex) 750 Mg CAPSULE Cephale isma Monohydrate (Keflex) 750 Mg CAPSULE 2018-11-18 00:00:00 No 1000 Every 8 H ours [facility] Ciprofloxacin Hcl (Cipro) 500 Mg TABLET Ciprofloxacin Hcl (C ipro) 500 Mg TABLET 2018-11-18 00:00:00 No 500 Twice A Day [facility] Doxycycline Hyclate Doxycycline Hyclate 2018-11-18 00:00:00 No 100 Every 12 Hours [facility] Doxycycline Hyclate Doxycycline Hyclate 2018-11-18 00:00:00 No 100 Twice A Day [facility] Hydrochlorothiazide Hydrochlorothiazide 2018-11-18 00:00:00 No 50 Daily [facility] Hydrocodone Bit/Acetaminophen (Vicodin Es 7.5-750 Mg T ablet) 1 Each TABLET Hydrocodone Bit/Acetaminophen (Vicodin Es 7.5-750 Mg Tablet) 1 Each TABLET 2018-11-18 00:00:00 No Q6hrs [facility] Metronidazole (Flagyl) 250 Mg TABLET Metronidazole (Flagyl) 250 Mg TABLET 2018-11-18 00:00:00 No 500 Every 8 Hours [facility] Lactulose Lactulose 2017-10-12 00:00:00 No 30 Every 8 Hours as needed for Constipation [facility] Sennosides/Docusate Sodium (Senna Laxative Tablet) 1 E ach TABLET Sennosides/Docusate Sodium (Senna Laxative Tablet) 1 Each TABLET 2017-10-12 00:00:00 No 1 Twice A Day [facility] Triamcinolone Acetonide (Kenalog-10) 10 Mg/1 Ml VIAL T riamcinolone Acetonide (Kenalog-10) 10 Mg/1 Ml VIAL 2012-10-16 00:00:00 No 1 Q6-8WEEKS [facility] Vital Signs Vital Name Observation Time Observation Value Comments Source Oxygen saturation by Pulse oximetry 2020-03-03 02:35:00 100 /min [facility] Weight 2020-03-03 01:17:00 174 [lb_av] [facility] BMI (Body Mass Index) 2020-03-03 01:17:00 29.9 kg/m2 [facility] Body Temperature 2020-01-18 09:00:00 97.4 [degF] [facility] Heart Rate 2020-01-18 09:00:00 90 /min [facility] Respiratory rate 2020-01-18 09:00:00 18 /min [facility] BP Systolic 2020-01-18 09:00:00 150 mm[Hg] [facility] BP Diastolic 2020-01-18 09:00:00 97 mm[Hg] [facility] Body Temperature 2020-01-18 08:00:00 97.4 [degF] [facility] Weight 2020-01-17 04:00:00 174 [lb_av] [facility] BMI (Body Mass Index) 2020-01-17 04:00:00 29.9 kg/m2 [facility] Body Temperature 2019-10-08 09:03:00 98.7 [degF] [facility] Weight 2019-10-07 00:47:00 175.50 [lb_av] [facility] BMI (Body Mass Index) 2019-10-07 00:47:00 30.1 kg/m2 [facility] Procedures Procedure Date / Time Performed Performing Clinician Selena garcia CT of right lower extremity without contrast 2020-01-14 00:00:00 [facility] INSERTION OF INFUSION DEV INTO SUP VENA CAVA, PERC APPROACH 2019-10-05 00:00:00 [facility] Computed tomography of brain without radiopaque contrast 2019-09 00:00:00 [facility] Plan of Care Planned Activity Planned Date Details Comments Source Instructions Cellulitis [facility] Encounters Start Date/Time End Date/Time Encounter Type Admission Type [facility] Care Department Encounter ID Source 2020-03-03 01:22:00 2020-03-03 02:40:00 Departed Emergency Room [facility] [id number] [facility] 2020-01-04 05:10:00 2020-01-18 09:58:00 Discharged Inpatient 1 PARMINDER NARVAEZ [facility] [id number] [facility] 2019-10-01 07:48:00 2019-10-08 11:55:00 Discharged Inpatient 1 PARMINDER NARVAEZ [facility] [id number] [facility] 2019-02-19 04:25:00 2019-02-26 09:53:00 Discharged Inpatient 1 PARMINDER NARVAEZ [facility] [id number] [facility] 2019-02-07 17:41:00 2019-02-13 13:55:00 Discharged Inpatient 1 ESTER PASTOR [facility] [id number] [facility] 2019-01-27 11:45:00 2019-01-29 10:43:00 Discharged Inpatient (obs) [address] [facility] [id number] I [facility] 2018-11-17 19:27:00 2018-11-29 14:08:00 Discharged Inpatient 1 PARMINDER NARVAEZ [facility] [id number] [facility] 2018-04-09 16:03:00 2018-04-16 11:03:00 Discharged Inpatient 1 PARMINDER NARVAEZ [facility] [id number] [facility] 2017-10-08 06:02:00 2017-10-13 06:19:00 Discharged Inpatient 1 ALAN NAJERA [facility] [id number] [facility] Results Test Description Test Time Test Comments Results Result Comments Source Blood leukocytes automated count (number/volume) 2020-03-03 01:30:00 Test Item White Blood Count (test code = 6690-2) 13.02 10*3/uL 4.8-10.8 [facility] count (number/volume)2020-03-03 01:30:00* Test Item Value Reference Range Interpretation Comments Red Blood Count (test code = 789-8) 4.20 10*6/mL 3.6-5.1 [facility] measurement (moles/volume)2020-03-03 01:30:00* Test Item Value Reference Range Interpretation Comments Hemoglobin (test code = 64620-5) 14.2 g/dL 12.0-16.0 [facility] blood hematocrit (volume fraction)2020-03-03 01:30:00* Test Item Value Reference Range Interpretation Comments Hematocrit (test code = 4544-3) 42.6 % 34.2-44.1 [facility] erythrocyte mean corpuscular [id number] 01:30:00* Test Item Value Reference Range Interpretation Comments Mean Corpuscular Volume (test code = 787-2) 101.4 81-99 [facility] erythrocyte mean corpuscular hemoglobin (mass per erythrocyte)2020-03-03 01:30:00* Test Item Value Reference Range Interpretation Comments Mean Corpuscular Hemoglobin (test code = 785-6) 33.8 pg 28-32 [facility]Autom[facility] erythrocyte mean corpuscular hemoglobin concentration measurement (mass/volume)2020-03-03 01:30:00* Test Item Value Reference Range Interpretation Comments Mean Corpuscular Hemoglobin Concent (test code = 786-4) 33.3 g/dL 31-35 [facility] HospitalRDW [id number]-[id number] 01:30:00* Test Item Value Reference Range Interpretation Comments Red Cell Distribution Width (test code = 07262-6) 13.6 % 11.7 -14.4 [facility] HospitalAutomated blood platelet count (count/volume)2020-03-03 01:30:00* Test Item Value Reference Range Interpretation Comments Platelet Count (test code = 777-3) 380 10*3/uL 140-360 [facility] HospitalAutomated blood segmented neutrophil count as percentage of total [id number] 01:30:00* Test Item Value Reference Range Interpretation Comments Neutrophils (%) (Auto) (test code = 81427-2) 63.1 % 38.7-80.0 [facility]Automated blood lymphocyte count as percentage ot total miyanmurel2397-08-12 01:30:00* Test Item Value Reference Range Interpretation Comments Lymphocytes (%) (Auto) (test code = 736-9) 25.4 % 18.0-39.1 [facility]Autom[facility] blood monocyte count as percentage of total nkzxnuclej5722-14-87 01:30:00* Test Item Value Reference Range Interpretation Comments Monocytes (%) (Auto) (test code = 5905-5) 6.1 % 4.4-11.3 [facility] HospitalAutomated blood eosinophil count as percentage of total uuyaqrhcws1078-53-08 01:30:00* Test Item Value Reference Range Interpretation Comments Eosinophils (%) (Auto) (test code = 713-8) 0.5 % 0.0-6.0 [facility] HospitalAutomated blood basophil count as percentage of total gymgfolydd0036-70-84 01:30:00* Test Item Value Reference Range Interpretation Comments Basophils (%) (Auto) (test code = 706-2) 0.8 % 0.0-1.0 [facility] HospitalFluoroscopic procedure less than one hour vxbhpnik6534-09-87 01:30:00* Test Item Value Reference Range Interpretation Comments IM GRANULOCYTES % (test code = IM GRANULOCYTES %) 4.1 % 0.0- 1.0 [facility]Automated blood neutrophil count 2020-03-03 01:30:00* Test Item Value Reference Range Interpretation Comments Neutrophils # (Auto) (test code = 751-8) 8.2 2.1-6.9 [facility] lymphocytes count (number/volume) 2020-03-03 01:30:00* Test Item Value Reference Range Interpretation Comments Lymphocytes # (Auto) (test code = 08738-7) 3.3 1.0-3.2 [facility] monocytes automated count (number/volume)2020-03-03 01:30:00* Test Item Value Reference Range Interpretation Comments Monocytes # (Auto) (test code = 742-7) 0.8 0.2-0.8 [facility] HospitalAutomated blood eosinophil count 2020-03-03 01:30:00* Test Item Value Reference Range Interpretation Comments Eosinophils # (Auto) (test code = 711-2) 0.1 0.0-0.4 [facility] HospitalAutomated blood basophil count (count/volume)2020-03-03 01:30:00* Test Item Value Reference Range Interpretation Comments Basophils # (Auto) (test code = 704-7) 0.1 0.0-0.1 [facility] HospitalFluoroscopic procedure less than one hour warqgzob3353-58-49 01:30:00* Test Item Value Reference Range Interpretation Comments Absolute Immature Granulocyte (auto (anita t code = Absolute Immature Granulocyte (auto) 0.54 10*3/uL 0-0.1 [facility] sodium measurement (moles/volume)2020-03-03 01:30:00* Test Item Value Reference Range Interpretation Comments Sodium Level (test code = 2951-2) 139 mmol/L 136-145 [facility] or plasma potassium measurement (moles/volume)2020-03-03 01:30:00* Test Item Value Reference Range Interpretation Comments Potassium Level (test code = 2823-3) 3.9 mmol/L 3.5-5.1 [facility] or plasma chloride measurement (moles/volume)2020-03-03 01:30:00* Test Item Value Reference Range Interpretation Comments Chloride Level (test code = 2075-0) 103 mmol/L 98-107 [facility] or plasma carbon dioxide, total measurement (moles/volume)2020-03-03 01:30:00* Test Item Value Reference Range Interpretation Comments Carbon Dioxide Level (test code = 2028-9) 24 mmol/L 22-29 [facility] Hospitalerum or plasma anion dre2079-95-83 01:30:00* Test Item Value Reference Range Interpretation Comments Anion Gap (test code = 27849-9) 15.9 mmol/L 8-16 [facility] or plasma urea nitrogen measurement (mass/volume)2020-03-03 01:30:00* Test Item Value Reference Range Interpretation Comments Blood Urea Nitrogen (test code = 3094-0) 10 mg/dL 7- [facility] plasma creatinine measurement (mass/volume)2020-03-03 01:30:00* Test Item Value Reference Range Interpretation Comments Creatinine (test code = 2160-0) 0.76 mg/dL 0.57-1.11 [facility]er[facility] or plasma urea nitrogen/creatinine mass taago5184-55-75 01:30:00* Test Item Value Reference Range Interpretation Comments BUN/Creatinine Ratio (test code = 3097-3) 13 6- [facility] HospitalEstimated glomerular filtration rate (GFR) llrhbvfjcjexi7158-06-48 01:30:00* Test Item Value Reference Range Interpretation Comments Estimat Glomerular Filtration Rate (test code = 699100436) > 60 mL/ min >60 Ranges were taken from the National Kidney Disease Education Program and the [facility] literature.Reference ranges:60 or greater: Hezxwg01-75 ( for 3 consecutive months): Chronic kidney disease 15 or less: Kidney failureMayhill HospitalGlucose nrmefdmpiqb5849-20-32 01:30:00* Test Item Value Reference Range Interpretation Comments Glucose Level (test code = HRX1875) 233 mg/dL 74-118 [facility]er[facility] or plasma calcium measurement (mass/volume)2020-03-03 01:30:00* Test Item Value Reference Range Interpretation Comments Calcium Level (test code = 23576-1) 9.2 mg/dL 8.4-10.2 [facility] Hospitaler[facility] or plasma total bilirubin measurement (mass/volume)2020-03-03 01:30:00* Test Item Value Reference Range Interpretation Comments Total Bilirubin (test code = 1975-2) 0.2 mg/dL 0.2-1.2 [facility] HospitalFluoroscopic procedure less than one hour sqxicrgc0403-71-27 01:30:00* Test Item Value Reference Range Interpretation Comments Aspartate Amino Transf (AST/SGOT) (test code = Aspartate Amino Transf (AST/SGOT)) 79 [IU]/L 5-34 [facility] Hospitalerum or plasma alanine aminotransferase measurement (enzymatic activity/volume)2020-03-03 01:30:00* Test Item Value Reference Range Interpretation Comments Alanine Aminotransferase (ALT/SGPT) (test code = 1742-6) 84 [IU]/L 0-55 [facility] Hospitalerum or plasma protein measurement (mass/volume)2020-03-03 01:30:00* Test Item Value Reference Range Interpretation Comments Total Protein (test code = 2885-2) 6.8 g/dL 6.5-8.1 [facility] Hospitaler[facility] or plasma albumin measurement (mass/volume)2020-03-03 01:30:00* Test Item Value Reference Range Interpretation Comments Albumin (test code = 1751-7) 3.2 g/dL 3.5-5.0 [facility] HospitalPlasma globulin measurement (mass/volume) 2020-03-03 01:30:00* Test Item Value Reference Range Interpretation Comments Globulin (test code = 90324-6) 3.6 g/dL 2.3-3.5 [facility] or plasma albumin/globulin mass osfke8020-23-18 01:30:00* Test Item Value Reference Range Interpretation Comments Albumin/Globulin Ratio (test code = 1759-0) 0.9 0.8-2.0 [facility] or plasma alkaline phosphatase measurement (enzymatic activity/volume)2020-03-03 01:30:00* Test Item Value Reference Range Interpretation Comments Alkaline Phosphatase (test code = 6768-6) 135 [IU]/L 40-150 [facility] HospitalBlood gldtkuh7948-52-08 01:30:00* Test Item Value Reference Range Interpretation Comments Blood Culture (test code = 76182257) NO GROWTH AFTER 24 HOURS [facility] HospitalCapillary blood glucose measurement by glucometer (mass/volume)2020-01-17 20:21:00* Test Item Value Reference Range Interpretation Comments Bedside Glucose (test code = 36047-9) 258 70-120 Meter ID: [id number] HospitalCapillary blood glucose measurement by glucometer (mass/volume)2020-01-17 12:17:00* Test Item Value Reference Range Interpretation Comments Bedside Glucose (test code = 36896-1) 133 mg/dL 70-120 Meter ID: [id number] HospitalBlood platelets count by estimate (number/volume)2020-01-16 07:47:00* Test Item Value Reference Range Interpretation Comments Platelet Estimate (test code = 97933-8) ADEQUATE [facility] HospitalPlatelet qqqnuqgjmj0625-90-68 07:47:00* Test Item Value Reference Range Interpretation Comments Platelet Morphology Comment (test code = 99508-2) RARE EDTA CLUMPIN G [facility] HospitalRBC povlronjgh8010-10-08 07:47:00* Test Item Value Reference Range Interpretation Comments Red Cell Morphology Comment (test code = 6742-1) NORMAL [facility] or plasma magnesium measurement (mass/volume)2020-01-16 07:00:00* Test Item Value Reference Range Interpretation Comments Magnesium Level (test code = 53298-7) 1.8 mg/dL 1.3-2.1 [facility] HospitalBlood leukocytes automated count (number/volume)2020-01-16 06:47:00* Test Item Value Reference Range Interpretation Comments White Blood Count (test code = 6690-2) 16.68 4.8-10.8 [facility] erythrocytes automated count (number/volume)2020-01-16 06:47:00* Test Item Value Reference Range Interpretation Comments Red Blood Count (test code = 789-8) 3.72 3.6-5.1 [facility] HospitalBlood hemoglobin measurement (moles/volume)2020-01-16 06:47:00* Test Item Value Reference Range Interpretation Comments Hemoglobin (test code = 42663-3) 12.6 12.0-16.0 [facility] HospitalAutomated blood hematocrit (volume fraction)2020-01-16 06:47:00* Test Item Value Reference Range Interpretation Comments Hematocrit (test code = 4544-3) 38.2 34.2-44.1 [facility] HospitalAutomated erythrocyte mean corpuscular sbpdlf3344-57-78 06:47:00* Test Item Value Reference Range Interpretation Comments Mean Corpuscular Volume (test code = 787-2) 102.7 81-99 [facility] HospitalAutomated erythrocyte mean corpuscular hemoglobin (mass per erythrocyte)2020-01-16 06:47:00* Test Item Value Reference Range Interpretation Comments Mean Corpuscular Hemoglobin (test code = 785-6) 33.9 28-32 [facility] HospitalAut[facility] erythrocyte mean corpuscular hemoglobin concentration measurement (mass/volume)2020-01-16 06:47:00* Test Item Value Reference Range Interpretation Comments Mean Corpuscular Hemoglobin Concent (test code = 786-4) 33.0 31-35 [facility] HospitalRDW ThlIb-Wjl9575-95-30 06:47:00* Test Item Value Reference Range Interpretation Comments Red Cell Distribution Width (test code = 64907-2) 13.8 11.7 -14.4 [facility] HospitalAutcritical access hospitaled blood platelet count (count/volume)2020-01-16 06:47:00* Test Item Value Reference Range Interpretation Comments Platelet Count (test code = 777-3) 237 140-360 [facility] HospitalAutomated blood segmented neutrophil count as percentage of total fxbhdllpji7137-79-82 06:47:00* Test Item Value Reference Range Interpretation Comments Neutrophils (%) (Auto) (test code = 95768-6) 70.7 38.7-80.0 [facility] HospitalAutcritical access hospitaled blood lymphocyte count as percentage ot total jzeqkohmnd4830-28-67 06:47:00* Test Item Value Reference Range Interpretation Comments Lymphocytes (%) (Auto) (test code = 736-9) 17.2 18.0-39.1 [facility] HospitalAutomated blood monocyte count as percentage of total psgklcyqsu2146-00-63 06:47:00* Test Item Value Reference Range Interpretation Comments Monocytes (%) (Auto) (test code = 5905-5) 6.6 4.4-11.3 [facility] HospitalAutomated blood eosinophil count as percentage of total xnagnfqxob4883-67-71 06:47:00* Test Item Value Reference Range Interpretation Comments Eosinophils (%) (Auto) (test code = 713-8) 0.5 0.0-6.0 [facility] HospitalAutomated blood basophil count as percentage of total uxzhlpupyf7341-82-67 06:47:00* Test Item Value Reference Range Interpretation Comments Basophils (%) (Auto) (test code = 706-2) 0.6 0.0-1.0 [facility] HospitalFluoroscopic procedure less than one hour sxjqzesi5550-04-29 06:47:00* Test Item Value Reference Range Interpretation Comments IM GRANULOCYTES % (test code = IM GRANULOCYTES %) 4.4 0.0- 1.0 [facility] HospitalAutomated blood neutrophil count 2020-01-16 06:47:00* Test Item Value Reference Range Interpretation Comments Neutrophils # (Auto) (test code = 751-8) 11.8 2.1-6.9 [facility] HospitalBlood lymphocytes count (number/volume) 2020-01-16 06:47:00* Test Item Value Reference Range Interpretation Comments Lymphocytes # (Auto) (test code = 93491-5) 2.9 1.0-3.2 [facility] HospitalBlood monocytes automated count (number/volume)2020-01-16 06:47:00* Test Item Value Reference Range Interpretation Comments Monocytes # (Auto) (test code = 742-7) 1.1 0.2-0.8 [facility] HospitalAutomated blood eosinophil count 2020-01-16 06:47:00* Test Item Value Reference Range Interpretation Comments Eosinophils # (Auto) (test code = 711-2) 0.1 0.0-0.4 [facility] HospitalAutomated blood basophil count (count/volume)2020-01-16 06:47:00* Test Item Value Reference Range Interpretation Comments Basophils # (Auto) (test code = 704-7) 0.1 0.0-0.1 [facility] HospitalFluoroscopic procedure less than one hour pkylwwku0491-08-88 06:47:00* Test Item Value Reference Range Interpretation Comments Absolute Immature Granulocyte (auto (anita t code = Absolute Immature Granulocyte (auto) 0.74 0-0.1 [facility] HospitalBlood platelets count by estimate (number/volume)2020-01-16 06:47:00* Test Item Value Reference Range Interpretation Comments Platelet Estimate (test code = 21511-6) ADEQUATE [facility] HospitalPlatelet zokboccnxf2580-52-13 06:47:00* Test Item Value Reference Range Interpretation Comments Platelet Morphology Comment (test code = 93598-3) RARE EDTA CLUMPIN G [facility] HospitalRBC vfodgxzuoz4098-13-58 06:47:00* Test Item Value Reference Range Interpretation Comments Red Cell Morphology Comment (test code = 6742-1) NORMAL [facility] sodium measurement (moles/volume)2020-01-16 06:00:00* Test Item Value Reference Range Interpretation Comments Sodium Level (test code = 2951-2) 138 136-145 [facility] Hospitaler[facility] or plasma potassium measurement (moles/volume)2020-01-16 06:00:00* Test Item Value Reference Range Interpretation Comments Potassium Level (test code = 2823-3) 3.5 3.5-5.1 [facility] Hospitaler[facility] or plasma chloride measurement (moles/volume)2020-01-16 06:00:00* Test Item Value Reference Range Interpretation Comments Chloride Level (test code = 2075-0) 100 98-107 [facility] Hospitalerum or plasma carbon dioxide, total measurement (moles/volume)2020-01-16 06:00:00* Test Item Value Reference Range Interpretation Comments Carbon Dioxide Level (test code = 2028-9) 26 22-29 [facility] Hospitalerum or plasma anion oeq3434-37-06 06:00:00* Test Item Value Reference Range Interpretation Comments Anion Gap (test code = 43641-2) 15.5 8-16 [facility] Hospitaler[facility] or plasma urea nitrogen measurement (mass/volume)2020-01-16 06:00:00* Test Item Value Reference Range Interpretation Comments Blood Urea Nitrogen (test code = 3094-0) 18 7-26 [facility]er[facility] or plasma creatinine measurement (mass/volume)2020-01-16 06:00:00* Test Item Value Reference Range Interpretation Comments Creatinine (test code = 2160-0) 0.91 0.57-1.11 [facility] Hospitaler[facility] or plasma urea nitrogen/creatinine mass ssckn4586-65-60 06:00:00* Test Item Value Reference Range Interpretation Comments BUN/Creatinine Ratio (test code = 3097-3) 20 6-25 [facility] HospitalEstimated glomerular filtration rate (GFR) ehjkwwumkaavw7042-76-41 06:00:00* Test Item Value Reference Range Interpretation Comments Estimat Glomerular Filtration Rate (test code = 379197097) > 60 >60 Ranges were taken from the National Kidney Disease Education Program and the [facility] Kidney Foundation literature.Reference ranges:60 or greater: Djojbc36-80 ( for 3 consecutive months): Chronic kidney disease 15 or less: Kidney failureMayhill HospitalGlucose pkmymomtxee4248-01-32 06:00:00* Test Item Value Reference Range Interpretation Comments Glucose Level (test code = WFZ8873) 265 74-118 [facility]er[facility] or plasma calcium measurement (mass/volume)2020-01-16 06:00:00* Test Item Value Reference Range Interpretation Comments Calcium Level (test code = 75909-2) 8.5 8.4-10.2 [facility] Hospitaler[facility] or plasma magnesium measurement (mass/volume)2020-01-16 06:00:00* Test Item Value Reference Range Interpretation Comments Magnesium Level (test code = 02111-6) 1.8 1.3-2.1 [facility] Hospitaler[facility] or plasma total bilirubin measurement (mass/volume)2020-01-16 06:00:00* Test Item Value Reference Range Interpretation Comments Total Bilirubin (test code = 1975-2) 0.4 0.2-1.2 [facility] HospitalFluoroscopic procedure less than one hour xiuocpfv0893-51-82 06:00:00* Test Item Value Reference Range Interpretation Comments Aspartate Amino Transf (AST/SGOT) (test code = Aspartate Amino Transf (AST/SGOT)) 68 5-34 [facility] Hospitalerum or plasma alanine aminotransferase measurement (enzymatic activity/volume)2020-01-16 06:00:00* Test Item Value Reference Range Interpretation Comments Alanine Aminotransferase (ALT/SGPT) (test code = 1742-6) 145 0-55 [facility] Hospitalerum or plasma protein measurement (mass/volume)2020-01-16 06:00:00* Test Item Value Reference Range Interpretation Comments Total Protein (test code = 2885-2) 5.9 6.5-8.1 [facility] Hospitaler[facility] or plasma albumin measurement (mass/volume)2020-01-16 06:00:00* Test Item Value Reference Range Interpretation Comments Albumin (test code = 1751-7) 3.5 3.5-5.0 [facility] HospitalPlasma globulin measurement (mass/volume) 2020-01-16 06:00:00* Test Item Value Reference Range Interpretation Comments Globulin (test code = 44917-4) 2.4 2.3-3.5 [facility]er[facility] or plasma albumin/globulin mass hniqr3166-06-82 06:00:00* Test Item Value Reference Range Interpretation Comments Albumin/Globulin Ratio (test code = 1759-0) 1.5 0.8-2.0 [facility]er[facility] or plasma alkaline phosphatase measurement (enzymatic activity/volume)2020-01-16 06:00:00* Test Item Value Reference Range Interpretation Comments Alkaline Phosphatase (test code = 6768-6) 118 40-150 [facility] HospitalCT RIGHT LOWER EXTREMITY GV4056-52-38 11:10:00 [facility] [address], [place] [address] Patient Name: ROSA ISELA BENITEZ MR #: [id number] : 1970 Age/Sex: 49/F Req #: [id number] Adm Physician: PARMINDER NARVAEZ MD Ordered by: PARMINDER NARVAEZ MD Report #: [id number] Location: MED/SURG3 Room/Bed: [facility] Procedure: [id number] CT/CT RIGH T LOWER EXTREMITY WO Exam Date: Exam Time: REPORT STATUS: Signed TECHNIQUE: Comp uted tomography imaging of the right lower extremity was performed WITHOUT inj ected contrast. Dose modulation, iterative reconstruction, and/or weight based adjustment of the mA/kV was utilized to reduce the radiation dose to as low a s reasonably achievable. HISTORY: Cellulitis, evaluate for abscess COMP ARISON: None available. FINDINGS: No fracture. Bone demineralization . Joint spaces preserved. Multiple soft tissue markers placed. Areas o f skin thickening and subcutaneous edema most prominent involving the mid to l ower calf through the foot. No well-defined abscess. IMPRESSION: Right lower extremity edema/cellulitis. No abscess. Signed by: Dr. Zuri Otto M.D. on 01/14/2020 11:15 AM Dictated By: ZURI OTTO MD Liya ctronically Signed By: ZURI OTTO MD on 01/14/20 1115 Transcribed By: MELE GONZALEZ on 01/14/20 1115 COPY TO: PARMINDER NARVAEZ MD Blood macrocytes detection by light kbtuegnzsm7698-39-44 06:37:00* Test Item Value Reference Range Interpretation Comments Macrocytosis (test code = 738-5) SLIGHT [facility] HospitalBlood macrocytes detection by light duzainzacw4528-23-54 05:37:00* Test Item Value Reference Range Interpretation Comments Macrocytosis (test code = 738-5) SLIGHT [facility] HospitalCHEST XRAY LINE WLUIPRKEW2313-88-57 15:06:00 [facility] [address] [place] [address] Patient Name: ROSA ISELA BENITEZ MR #: [id number] : 1970 Age/Sex: 49/F Req #: [id number] Adm Physician: PARMINDER NARVAEZ MD Ordered by: PARMINDER NARVAEZ MD Report #: [id number] Location: MED/SURG3 Room/Bed: [facility] Procedure: [id number] DX/CHEST X RAY LINE PLACEMENT Exam Date: 01/09/20 Exam Time: REPORT STATUS: Signed EXAMINA TION: CHEST XRAY LINE PLACEMENT INDICATION: Line placement COMPAR GEOFFREY: Chest radiograph 10/05/2019 FINDINGS: LINES/TUBES:Left PICC line terminates at the superior cavoatrial junction. LUNGS:The lungs are we ll-inflated. No focal consolidation or pulmonary edema. PLEURA:No pleural e ffusion or pneumothorax. MEDIASTINUM:The cardiomediastinal silhouette appea rs normal in size and shape. BONES/SOFT TISSUES:No acute osseous injury. ABDOMEN:No free air under the diaphragm. IMPRESSION: Left PICC parth e terminates at the superior cavoatrial junction. Signed by: Dipak Talbot MD on 01/09/2020 3:06 PM Dictated By: DIPAK TALBOT MD [id number] Transcribed By: BRENDON on 01/09/201505 COPY TO: PARMINDER NARVAEZ MD Fluoroscopic procedure less than one hour ijricqgg7292-28-26 09:20:00* Test Item Value Reference Range Interpretation Comments Lactic Acid Level (test code = Lactic Acid Level) 1.6 mmol/L 0.5- 2.0 [facility] HospitalFluoroscopic procedure less than one hour ejrcqbtt6027-60-04 08:20:00* Test Item Value Reference Range Interpretation Comments Lactic Acid Level (test code = Lactic Acid Level) 1.6 0.5- 2.0 [facility] HospitalFluoroscopic procedure less than one hour cqpywqjc6306-89-79 05:50:00* Test Item Value Reference Range Interpretation Comments Coronavirus (PCR) (test code = Coronavirus (PCR)) NOT DETECTED NOTD ETECTED SARS-CoV-2 PCRHologic Aptima SARS-CoV-2 assay is a nucleic amplification test in tended for the qualitative detection of RNA from SARS-CoV-2 from nasopharyngeal (ARBORER) specimens. It is used under Emergency Use Authorization (EUA) by FDA.A posi tive result is indicative of the presence of SARS-CoV-2 RNA. Clinical correlatio n with patient history and other diagnostic information is necessary to determin e patient infection status.A negative (Not Detected) result does not preclude SA RS-CoV-2 infection. Clinical Correlation with patient history and other diagnost ic information should be used in patient management decisions.Invalid: Unable to generate a valid result on this specimen. Please submit a new specimen for repr at testing oc clinically indicated.Tesing performed by:[facility] Laboratory Services[address] [place] [address] [id number], Funmilayo mata MD, PhDMayhill HospitalFluoroscopic procedure less than one hour zeulwwnh8166-28-10 04:50:00* Test Item Value Reference Range Interpretation Comments Coronavirus (PCR) (test code = Coronavirus (PCR)) NOT DETECTED NOTD ETECTED SARS-CoV-2 PCRHologic Aptima SARS-CoV-2 assay is a nucleic amplification test in tended for the qualitative detection of RNA from SARS-CoV-2 from nasopharyngeal (ARBORER) specimens. It is used under Emergency Use Authorization (EUA) by FDA.A posi tive result is indicative of the presence of SARS-CoV-2 RNA. Clinical correlatio n with patient history and other diagnostic information is necessary to determin e patient infection status.A negative (Not Detected) result does not preclude SA RS-CoV-2 infection. Clinical Correlation with patient history and other diagnost ic information should be used in patient management decisions.Invalid: Unable to generate a valid result on this specimen. Please submit a new specimen for repr at testing oc clinically indicated.Tesing performed by:[facility] Laboratory Services[address] [place] [id number], Funmilayo mata MD, PhDMayhill HospitalUrine color determination 2020-01-04 03:35:00* Test Item Value Reference Range Interpretation Comments Urine Color (test code = 5778-6) YELLOW YELLOW [facility] HospitalUrine jtmkfad0139-24-69 03:35:00* Test Item Value Reference Range Interpretation Comments Urine Clarity (test code = 99641-6) CLEAR CLEAR [facility] Hospitalpecific gravity of Urine by Test strip 2020-01-04 03:35:00* Test Item Value Reference Range Interpretation Comments Urine Specific [place] (test code = 5811-5) 1.020 1.010-1.02 5 [facility] HospitalUrine pH measurement by automated test dycad7728-71-00 03:35:00* Test Item Value Reference Range Interpretation Comments Urine pH (test code = 19082-9) 5.5 5-7 [facility] HospitalUrine leukocyte esterase detection by ygmdkziy3937-56-33 03:35:00* Test Item Value Reference Range Interpretation Comments Urine Leukocyte Esterase (test code = 5799-2) NEGATIVE NEGATIVE [facility] HospitalUrine nitrite rogqpqueq0487-98-73 03:35:00* Test Item Value Reference Range Interpretation Comments Urine Nitrite (test code = 31438-5) NEGATIVE NEGATIVE [facility] HospitalUrine protein measurement by test strip (mass/volume)2020-01-04 03:35:00* Test Item Value Reference Range Interpretation Comments Urine Protein (test code = 5804-0) NEGATIVE NEGATIVE [facility] HospitalUrine glucose xftwriowp3550-80-17 03:35:00* Test Item Value Reference Range Interpretation Comments Urine Glucose (UA) (test code = 2349-9) 2+ NEGATIVE [facility] HospitalUrine ketones detection by automated test bnpqs4324-37-61 03:35:00* Test Item Value Reference Range Interpretation Comments Urine Ketones (test code = 79745-5) NEGATIVE NEGATIVE [facility] HospitalUrine urobilinogen measurement by test strip (mass/volume)2020-01-04 03:35:00* Test Item Value Reference Range Interpretation Comments Urine Urobilinogen (test code = 16437-2) 0.2 mg/dL 0.2-1 [facility] HospitalUrine total bilirubin measurement (mass/volume)2020-01-04 03:35:00* Test Item Value Reference Range Interpretation Comments Urine Bilirubin (test code = 1978-6) NEGATIVE NEGATIVE [facility] HospitalUrine erythrocytes ceuujkmvg3808-16-45 03:35:00* Test Item Value Reference Range Interpretation Comments Urine Blood (test code = 61582-5) NEGATIVE NEGATIVE [facility] HospitalAutomated urine sediment leukocyte count by microscopy (number/high power field)2020-01-04 03:35:00* Test Item Value Reference Range Interpretation Comments Urine WBC (test code = 5821-4) 0-5 /[HPF] 0-5 [facility] HospitalErythrocytes detection in urine sediment by light zxuraclgkd1033-27-66 03:35:00* Test Item Value Reference Range Interpretation Comments Urine RBC (test code = 78451-8) 0-5 /[HPF] 0-5 [facility] HospitalBacteria detection in urine sediment by light lykzqoexpz8884-59-58 03:35:00* Test Item Value Reference Range Interpretation Comments Urine Bacteria (test code = 34403-9) FEW /[HPF] NONE [facility] HospitalEpithelial cells detection in urine sediment by light rlaldabrpz0788-47-31 03:35:00* Test Item Value Reference Range Interpretation Comments Urine Epithelial Cells (test code = 19808-9) FEW /[LPF] NONE [facility] HospitalBlood pvgrfbb9190-91-65 02:55:00* Test Item Value Reference Range Interpretation Comments Blood Culture (test code = 29044641) NO GROWTH AFTER 5 DAYS, FINAL REPORT [facility] HospitalUrine color zznkwbftawkdi5919-26-15 02:35:00* Test Item Value Reference Range Interpretation Comments Urine Color (test code = 5778-6) YELLOW YELLOW [facility] HospitalUrine pynggls0357-38-48 02:35:00* Test Item Value Reference Range Interpretation Comments Urine Clarity (test code = 35622-7) CLEAR CLEAR [facility] Hospitalpecific gravity of Urine by Test strip 2020-01-04 02:35:00* Test Item Value Reference Range Interpretation Comments Urine Specific [place] (test code = 5811-5) 1.020 1.010-1.02 5 [facility] HospitalUrine pH measurement by automated test ttavt4839-30-80 02:35:00* Test Item Value Reference Range Interpretation Comments Urine pH (test code = 51740-5) 5.5 5-7 [facility] HospitalUrine leukocyte esterase detection by cktgdmga9237-42-45 02:35:00* Test Item Value Reference Range Interpretation Comments Urine Leukocyte Esterase (test code = 5799-2) NEGATIVE NEGATIVE [facility] HospitalUrine nitrite zzrzjywyy4892-88-22 02:35:00* Test Item Value Reference Range Interpretation Comments Urine Nitrite (test code = 81861-3) NEGATIVE NEGATIVE [facility] HospitalUrine protein measurement by test strip (mass/volume)2020-01-04 02:35:00* Test Item Value Reference Range Interpretation Comments Urine Protein (test code = 5804-0) NEGATIVE NEGATIVE [facility] HospitalUrine glucose vubvttjto2963-64-31 02:35:00* Test Item Value Reference Range Interpretation Comments Urine Glucose (UA) (test code = 2349-9) 2+ NEGATIVE [facility] HospitalUrine ketones detection by automated test aedhy1376-62-62 02:35:00* Test Item Value Reference Range Interpretation Comments Urine Ketones (test code = 11597-7) NEGATIVE NEGATIVE [facility] HospitalUrine urobilinogen measurement by test strip (mass/volume)2020-01-04 02:35:00* Test Item Value Reference Range Interpretation Comments Urine Urobilinogen (test code = 95799-5) 0.2 0.2-1 [facility] HospitalUrine total bilirubin measurement (mass/volume)2020-01-04 02:35:00* Test Item Value Reference Range Interpretation Comments Urine Bilirubin (test code = 1978-6) NEGATIVE NEGATIVE [facility] HospitalUrine erythrocytes uuirqxpmk5501-87-87 02:35:00* Test Item Value Reference Range Interpretation Comments Urine Blood (test code = 64341-7) NEGATIVE NEGATIVE [facility] HospitalAutomated urine sediment leukocyte count by microscopy (number/high power field)2020-01-04 02:35:00* Test Item Value Reference Range Interpretation Comments Urine WBC (test code = 5821-4) 0-5 0-5 [facility] HospitalErythrocytes detection in urine sediment by light hmabubynjj9644-05-33 02:35:00* Test Item Value Reference Range Interpretation Comments Urine RBC (test code = 89476-2) 0-5 0-5 [facility] HospitalBacteria detection in urine sediment by light gniaikmzxc7785-53-15 02:35:00* Test Item Value Reference Range Interpretation Comments Urine Bacteria (test code = 50121-3) FEW NONE [facility] HospitalEpithelial cells detection in urine sediment by light jlofodihmo3596-23-89 02:35:00* Test Item Value Reference Range Interpretation Comments Urine Epithelial Cells (test code = 10108-9) FEW NONE [facility] HospitalCapillary blood glucose measurement by glucometer (mass/volume)2019-10-08 07:07:00* Test Item Value Reference Range Interpretation Comments Bedside Glucose (test code = 66691-8) 181 70-120 Meter ID: [id number] Palmas Medical CenterBlood leukocytes automated count (number/volume)2019-10-07 05:15:00* Test Item Value Reference Range Interpretation Comments White Blood Count (test code = 6690-2) 17.93 4.8-10.8 [facility] HospitalBlood erythrocytes automated count (number/volume)2019-10-07 05:15:00* Test Item Value Reference Range Interpretation Comments Red Blood Count (test code = 789-8) 3.93 3.6-5.1 [facility] HospitalBlood hemoglobin measurement (moles/volume)2019-10-07 05:15:00* Test Item Value Reference Range Interpretation Comments Hemoglobin (test code = 68385-0) 12.8 12.0-16.0 [facility] HospitalAutomated blood hematocrit (volume fraction)2019-10-07 05:15:00* Test Item Value Reference Range Interpretation Comments Hematocrit (test code = 4544-3) 38.4 34.2-44.1 [facility] HospitalAutomated erythrocyte mean corpuscular gegecr4816-14-37 05:15:00* Test Item Value Reference Range Interpretation Comments Mean Corpuscular Volume (test code = 787-2) 97.7 81-99 [facility] HospitalAutomated erythrocyte mean corpuscular hemoglobin (mass per erythrocyte)2019-10-07 05:15:00* Test Item Value Reference Range Interpretation Comments Mean Corpuscular Hemoglobin (test code = 785-6) 32.6 28-32 [facility] HospitalAutwashington regional [facility] center erythrocyte mean corpuscular hemoglobin concentration measurement (mass/volume)2019-10-07 05:15:00* Test Item Value Reference Range Interpretation Comments Mean Corpuscular Hemoglobin Concent (test code = 786-4) 33.3 31-35 [facility] HospitalRDW SrbOd-Vwr8000-56-21 05:15:00* Test Item Value Reference Range Interpretation Comments Red Cell Distribution Width (test code = 53410-2) 13.7 11.7 -14.4 [facility] HospitalAutcritical access hospitaled blood platelet count (count/volume)2019-10-07 05:15:00* Test Item Value Reference Range Interpretation Comments Platelet Count (test code = 777-3) 338 140-360 [facility] Centered [facility] segmented neutrophil count as percentage of total tdawpdltyu3084-37-10 05:15:00* Test Item Value Reference Range Interpretation Comments Neutrophils (%) (Auto) (test code = 41708-9) 73.2 38.7-80.0 [facility] HospitalAutcritical access hospitaled blood lymphocyte count as percentage ot total xcjcntiidt4400-19-71 05:15:00* Test Item Value Reference Range Interpretation Comments Lymphocytes (%) (Auto) (test code = 736-9) 15.6 18.0-39.1 [facility] HospitalAutomated blood monocyte count as percentage of total wokrkuwfby7856-38-69 05:15:00* Test Item Value Reference Range Interpretation Comments Monocytes (%) (Auto) (test code = 5905-5) 7.1 4.4-11.3 [facility] HospitalAutomated blood eosinophil count as percentage of total gyvjqvqtzs6353-88-19 05:15:00* Test Item Value Reference Range Interpretation Comments Eosinophils (%) (Auto) (test code = 713-8) 0.3 0.0-6.0 [facility] HospitalAutomated blood basophil count as percentage of total pmsqnwmnqh8449-68-29 05:15:00* Test Item Value Reference Range Interpretation Comments Basophils (%) (Auto) (test code = 706-2) 0.6 0.0-1.0 [facility] HospitalFluoroscopic procedure less than one hour tmpmjyui7282-61-96 05:15:00* Test Item Value Reference Range Interpretation Comments IM GRANULOCYTES % (test code = IM GRANULOCYTES %) 3.2 0.0- 1.0 [facility] HospitalAutomated blood neutrophil count 2019-10-07 05:15:00* Test Item Value Reference Range Interpretation Comments Neutrophils # (Auto) (test code = 751-8) 13.1 2.1-6.9 [facility] HospitalBlood lymphocytes count (number/volume) 2019-10-07 05:15:00* Test Item Value Reference Range Interpretation Comments Lymphocytes # (Auto) (test code = 60349-7) 2.8 1.0-3.2 [facility] HospitalBlood monocytes automated count (number/volume)2019-10-07 05:15:00* Test Item Value Reference Range Interpretation Comments Monocytes # (Auto) (test code = 742-7) 1.3 0.2-0.8 [facility] HospitalAutomated blood eosinophil count 2019-10-07 05:15:00* Test Item Value Reference Range Interpretation Comments Eosinophils # (Auto) (test code = 711-2) 0.1 0.0-0.4 [facility] HospitalAutomated blood basophil count (count/volume)2019-10-07 05:15:00* Test Item Value Reference Range Interpretation Comments Basophils # (Auto) (test code = 704-7) 0.1 0.0-0.1 [facility] HospitalFluoroscopic procedure less than one hour echpanmn0979-70-71 05:15:00* Test Item Value Reference Range Interpretation Comments Absolute Immature Granulocyte (auto (anita t code = Absolute Immature Granulocyte (auto) 0.57 0-0.1 [facility] Hospitalerum or plasma sodium measurement (moles/volume)2019-10-07 05:15:00* Test Item Value Reference Range Interpretation Comments Sodium Level (test code = 2951-2) 136 136-145 [facility] Hospitalerum or plasma potassium measurement (moles/volume)2019-10-07 05:15:00* Test Item Value Reference Range Interpretation Comments Potassium Level (test code = 2823-3) 4.3 3.5-5.1 [facility] Hospitalerum or plasma chloride measurement (moles/volume)2019-10-07 05:15:00* Test Item Value Reference Range Interpretation Comments Chloride Level (test code = 2075-0) 101 98-107 [facility] Hospitalerum or plasma carbon dioxide, total measurement (moles/volume)2019-10-07 05:15:00* Test Item Value Reference Range Interpretation Comments Carbon Dioxide Level (test code = 2028-9) 25 22-29 [facility] Hospitalerum or plasma anion afi2168-48-75 05:15:00* Test Item Value Reference Range Interpretation Comments Anion Gap (test code = 69317-0) 14.3 8-16 [facility] Hospitalerum or plasma urea nitrogen measurement (mass/volume)2019-10-07 05:15:00* Test Item Value Reference Range Interpretation Comments Blood Urea Nitrogen (test code = 3094-0) 22 7-26 [facility] Hospitalerum or plasma creatinine measurement (mass/volume)2019-10-07 05:15:00* Test Item Value Reference Range Interpretation Comments Creatinine (test code = 2160-0) 0.99 0.57-1.11 [facility] Hospitalerum or plasma urea nitrogen/creatinine mass cswfe2409-69-03 05:15:00* Test Item Value Reference Range Interpretation Comments BUN/Creatinine Ratio (test code = 3097-3) 22 6-25 [facility] HospitalEstimated glomerular filtration rate (GFR) ybecpgsmsbhto5199-34-55 05:15:00* Test Item Value Reference Range Interpretation Comments Estimat Glomerular Filtration Rate (test code = 487459357) 60 >60 Ranges were taken from the National Kidney Disease Education Program and the [facility] Kid[facility] Foundation literature.Reference ranges:60 or greater: Pyjnkl76-16 ( for 3 consecutive months): Chronic kidney disease 15 or less: Kid[facility] failureCH[facility] [facility]leGlucose dmljqcycbjc7428-03-59 05:15:00* Test Item Value Reference Range Interpretation Comments Glucose Level (test code = SVL4585) 227 74-118 [facility] calcium measurement (mass/volume)2019-10-07 05:15:00* Test Item Value Reference Range Interpretation Comments Calcium Level (test code = 32173-6) 8.9 8.4-10.2 [facility] HospitalCHEST XRAY LINE UFDSSVPYE7073-32-96 11:27:00 [place] [address] Patient Name: ROSA ISELA BENITEZ MR #: [id number] : 1970 Age/Sex: 49/F Req #: [id number] Adm Physician: PARMINDER NARVAEZ MD Ordered by: PARMINDER NARVAEZ MD Report #: [id number] Location: MED/SURG2 Room/Bed: [facility] Procedure: [id number] DX/CHEST X RAY LINE PLACEMENT Exam Date: [...] 11:28 AM Dictated By: DIPAK TALBOT MD 1128 Transc ribed By: BRENDON on 10/05/198 COPY TO: PARMINDER NARVAEZ MD Serum or plasma total bilirubin measurement (mass/volume)2019-10-02 05:00:00* Test Item Value Reference Range Interpretation Comments Total Bilirubin (test code = 1975-2) 0.4 0.2-1.2 [facility] HospitalFluoroscopic procedure less than one hour awzvencn2469-23-07 05:00:00* Test Item Value Reference Range Interpretation Comments Aspartate Amino Transf (AST/SGOT) (test code = Aspartate Amino Transf (AST/SGOT)) 30 5-34 [facility] Hospitaler[facility] or plasma alanine aminotransferase measurement (enzymatic activity/volume)2019-10-02 05:00:00* Test Item Value Reference Range Interpretation Comments Alanine Aminotransferase (ALT/SGPT) (test code = 1742-6) 59 0-55 [facility] Hospitalerum or plasma protein measurement (mass/volume)2019-10-02 05:00:00* Test Item Value Reference Range Interpretation Comments Total Protein (test code = 2885-2) 6.4 6.5-8.1 [facility] Hospitalerum or plasma albumin measurement (mass/volume)2019-10-02 05:00:00* Test Item Value Reference Range Interpretation Comments Albumin (test code = 1751-7) 3.0 3.5-5.0 [facility] HospitalPlasma globulin measurement (mass/volume) 2019-10-02 05:00:00* Test Item Value Reference Range Interpretation Comments Globulin (test code = 64449-8) 3.4 2.3-3.5 [facility] Hospitalerum or plasma albumin/globulin mass feqrg4089-02-73 05:00:00* Test Item Value Reference Range Interpretation Comments Albumin/Globulin Ratio (test code = 1759-0) 0.9 0.8-2.0 [facility] Hospitaler[facility] or plasma alkaline phosphatase measurement (enzymatic activity/volume)2019-10-02 05:00:00* Test Item Value Reference Range Interpretation Comments Alkaline Phosphatase (test code = 6768-6) 101 40-150 [facility] HospitalFluoroscopic procedure less than one hour kjheqngh5963-02-87 09:09:00* Test Item Value Reference Range Interpretation [...] complexity tests.Testing performed by [facility] [address] [phone] Director: Jered Escobedo M.D.CLIA # [id number] [facility]leBlood ywsyjvy6586-32-61 07:55:00* Test Item Value Reference Range Interpretation Comments Blood Culture (test code = 21185859) NO GROWTH AFTER 5 DAYS, FINAL REPORT [facility] AzleCT BRAIN CH1105-30-31 06:53:00 [place] [address] Patient Name: ROSA ISELA BENITEZ MR #: [id number] : 1970 Age/Sex: 49/F Req #: [id number] Adm Physician: PARMINDER NARVAEZ MD Ordered by: FUNMILAYO CALLOWAY MD Report #: [id number] Location: [facility] Room/Bed: ERHOLD-7 Procedure: [id number] CT /CT BRAIN WO Exam Date: 10/01/19 Exam Time: 629 REPORT STATUS: Signed History: Head injury Comparison [...] MD Fluoroscopic procedure less than one hour awnihauw0028-10-99 06:50:00* Test Item Value Reference Range Interpretation Comments Differential Total Cells Counted (test code = Differen tial Total Cells Counted) 100 [facility] blood neutrophils/100 leukocytes 2019-10-01 06:50:00* Test Item Value Reference Range Interpretation Comments Neutrophils % (Manual) (test code = 42177-9) 70 % 40-74 [facility] blood lymphocytes/100 leukocytes 2019-10-01 06:50:00* Test Item Value Reference Range Interpretation Comments Lymphocytes % (Manual) (test code = 737-7) 20 % 19-48 [facility] blood monocytes/100 leukocytes 2019-10-01 06:50:00* Test Item Value Reference Range Interpretation Comments Monocytes % (Manual) (test code = 744-3) 9 % 3.4-9.0 [facility] blood eosinophil count as percentage of total vmuuausstr1982-05-42 06:50:00* Test Item Value Reference Range Interpretation Comments Eosinophils % (Manual) (test code = 714-6) 1 % 0-7 [facility] HospitalBlood hypochromia detection by light qebnuwxycs0371-40-65 06:50:00* Test Item Value Reference Range Interpretation Comments Hypochromasia (test code = 728-6) SLIGHT [facility] HospitalYeast detection in urine sediment by light enygmetlhl8987-16-63 06:50:00* Test Item Value Reference Range Interpretation Comments Urine Yeast (test code = 21296-4) RARE NONE [facility] HospitalFluoroscopic procedure less than one hour rfsftjdk6363-63-53 05:50:00* Test Item Value Reference Range Interpretation Comments Differential Total Cells Counted (test code = Differgeoff tial Total Cells Counted) 100 [facility] blood neutrophils/100 leukocytes 2019-10-01 05:50:00* Test Item Value Reference Range Interpretation Comments Neutrophils % (Manual) (test code = 68402-1) 70 40-74 [facility] blood lymphocytes/100 leukocytes 2019-10-01 05:50:00* Test Item Value Reference Range Interpretation Comments Lymphocytes % (Manual) (test code = 737-7) 20 19-48 [facility] blood monocytes/100 leukocytes 2019-10-01 05:50:00* Test Item Value Reference Range Interpretation Comments Monocytes % (Manual) (test code = 744-3) 9 3.4-9.0 [facility] blood eosinophil count as percentage of total ewvaixsyos0160-12-75 05:50:00* Test Item Value Reference Range Interpretation Comments Eosinophils % (Manual) (test code = 714-6) 1 0-7 [facility] HospitalBlood platelets count by estimate (number/volume)2019-10-01 05:50:00* Test Item Value Reference Range Interpretation Comments Platelet Estimate (test code = 05020-0) ADEQUATE [facility] HospitalPlatelet xggyvsojvy1126-15-79 05:50:00* Test Item Value Reference Range Interpretation Comments Platelet Morphology Comment (test code = 63215-2) NORMAL [facility] HospitalBlood hypochromia detection by light xwanreiqht4533-94-46 05:50:00* Test Item Value Reference Range Interpretation Comments Hypochromasia (test code = 728-6) SLIGHT [facility] HospitalRBC zyczzyetrn8517-89-46 05:50:00* Test Item Value Reference Range Interpretation Comments Red Cell Morphology Comment (test code = 6742-1) NORMAL [facility] HospitalUrine color awtoettcxrlal2243-35-41 05:50:00* Test Item Value Reference Range Interpretation Comments Urine Color (test code = 5778-6) YELLOW YELLOW [facility] HospitalUrine dxvzrcs0791-64-90 05:50:00* Test Item Value Reference Range Interpretation Comments Urine Clarity (test code = 62140-2) CLEAR CLEAR [facility] Hospitalpecific gravity of Urine by Test strip 2019-10-01 05:50:00* Test Item Value Reference Range Interpretation Comments Urine Specific [place] (test code = 5811-5) 1.020 1.010-1.02 5 [facility] HospitalUrine pH measurement by automated test ihuxu7575-32-84 05:50:00* Test Item Value Reference Range Interpretation Comments Urine pH (test code = 47568-3) 6 5-7 [facility] HospitalUrine leukocyte esterase detection by grybxtpk8565-22-65 05:50:00* Test Item Value Reference Range Interpretation Comments Urine Leukocyte Esterase (test code = 5799-2) NEGATIVE NEGATIVE [facility] HospitalUrine nitrite ykrdlmjzx7428-82-28 05:50:00* Test Item Value Reference Range Interpretation Comments Urine Nitrite (test code = 24663-0) NEGATIVE NEGATIVE [facility] HospitalUrine protein measurement by test strip (mass/volume)2019-10-01 05:50:00* Test Item Value Reference Range Interpretation Comments Urine Protein (test code = 5804-0) NEGATIVE NEGATIVE [facility] HospitalUrine glucose rehbordao7981-24-16 05:50:00* Test Item Value Reference Range Interpretation Comments Urine Glucose (UA) (test code = 2349-9) NEGATIVE NEGATIVE [facility] HospitalUrine ketones detection by automated test rdqem4911-12-70 05:50:00* Test Item Value Reference Range Interpretation Comments Urine Ketones (test code = 21548-9) NEGATIVE NEGATIVE [facility] HospitalUrine urobilinogen measurement by test strip (mass/volume)2019-10-01 05:50:00* Test Item Value Reference Range Interpretation Comments Urine Urobilinogen (test code = 91614-9) 0.2 0.2-1 [facility] HospitalUrine total bilirubin measurement (mass/volume)2019-10-01 05:50:00* Test Item Value Reference Range Interpretation Comments Urine Bilirubin (test code = 1978-6) NEGATIVE NEGATIVE [facility] HospitalUrine erythrocytes dogchroit7492-92-72 05:50:00* Test Item Value Reference Range Interpretation Comments Urine Blood (test code = 37155-5) TRACE NEGATIVE [facility] HospitalAutomated urine sediment leukocyte count by microscopy (number/high power field)2019-10-01 05:50:00* Test Item Value Reference Range Interpretation Comments Urine WBC (test code = 5821-4) 0-5 0-5 [facility] HospitalErythrocytes detection in urine sediment by light ftfohcnbkp9127-37-78 05:50:00* Test Item Value Reference Range Interpretation Comments Urine RBC (test code = 91388-6) 0-5 0-5 [facility] HospitalBacteria detection in urine sediment by light obsgruelzc2622-17-99 05:50:00* Test Item Value Reference Range Interpretation Comments Urine Bacteria (test code = 16667-6) FEW NONE [facility] HospitalEpithelial cells detection in urine sediment by light sygaduhsaf4725-71-04 05:50:00* Test Item Value Reference Range Interpretation Comments Urine Epithelial Cells (test code = 67952-1) FEW NONE [facility] HospitalYeast detection in urine sediment by light sdathpsxis5139-08-07 05:50:00* Test Item Value Reference Range Interpretation Comments Urine Yeast (test code = 54117-8) RARE NONE [facility] HospitalFluoroscopic procedure less than one hour qhopqoof4478-94-35 05:50:00* Test Item Value Reference Range Interpretation Comments Differential Total Cells Counted (test code = Differen tial Total Cells Counted) 100 [facility] blood neutrophils/100 leukocytes 2019-10-01 05:50:00* Test Item Value Reference Range Interpretation Comments Neutrophils % (Manual) (test code = 96995-3) 70 40-74 [facility] blood lymphocytes/100 leukocytes 2019-10-01 05:50:00* Test Item Value Reference Range Interpretation Comments Lymphocytes % (Manual) (test code = 737-7) 20 19-48 [facility] blood monocytes/100 leukocytes 2019-10-01 05:50:00* Test Item Value Reference Range Interpretation Comments Monocytes % (Manual) (test code = 744-3) 9 3.4-9.0 [facility] blood eosinophil count as percentage of total zqcccydiwk6426-36-94 05:50:00* Test Item Value Reference Range Interpretation Comments Eosinophils % (Manual) (test code = 714-6) 1 0-7 [facility] HospitalBlood hypochromia detection by light xfdhxznfwb0603-25-42 05:50:00* Test Item Value Reference Range Interpretation Comments Hypochromasia (test code = 728-6) SLIGHT [facility] HospitalYeast detection in urine sediment by light tdxwfllxfy5592-02-62 05:50:00* Test Item Value Reference Range Interpretation Comments Urine Yeast (test code = 14243-7) RARE NONE [facility] HospitalBedside Szpoitc9378-77-53 08:11:00* Test Item Value Reference Range Interpretation Comments Bedside Glucose (test code = 00221-8) 147 70-120 H Meter ID: [id number] [facility] AzlePlatelet Morphology Qlqefzg2849-55-38 08:00:00* Test Item Value Reference Range Interpretation Comments Platelet Morphology Comment (test code = 33940-9) NO EDTA PLT CLUMP S SEEN [facility] Hospitalodium Lzwaq6499-56-78 07:25:00* Test Item Value Reference Range Interpretation Comments Sodium Level (test code = 2951-2) 139 136-145 [facility] HospitalPotassium Lbwat9846-12-89 07:25:00* Test Item Value Reference Range Interpretation Comments Potassium Level (test code = 2823-3) 4.3 3.5-5.1 [facility] HospitalChloride Jmcwz7113-18-45 07:25:00* Test Item Value Reference Range Interpretation Comments Chloride Level (test code = 2075-0) 108 98-107 H [facility] HospitalCarbon Dioxide Blthg6131-57-37 07:25:00* Test Item Value Reference Range Interpretation Comments Carbon Dioxide Level (test code = 2028-9) 21 22-29 L [facility] HospitalAnion Lwf2394-13-05 07:25:00* Test Item Value Reference Range Interpretation Comments Anion Gap (test code = 34011-2) 14.3 8-16 [facility] HospitalBlood Urea Djsxmofg0862-37-99 07:25:00* Test Item Value Reference Range Interpretation Comments Blood Urea Nitrogen (test code = 3094-0) 8 7-26 [facility] HospitalCreatinine2019-11-09 07:25:00* Test Item Value Reference Range Interpretation Comments Creatinine (test code = 2160-0) 0.67 0.57-1.11 [facility] HospitalBUN/Creatinine Wqryg9761-53-21 07:25:00* Test Item Value Reference Range Interpretation Comments BUN/Creatinine Ratio (test code = 3097-3) 12 6-25 [facility] HospitalEstimat Glomerular Filtration Rate 2019-02-24 07:25:00* Test Item Value Reference Range Interpretation Comments Estimat Glomerular Filtration Rate (test code = 706480765) > 60 >60 Ranges were taken from the National Kidney Disease Education Program and the [facility] literature.Reference ranges:60 or greater: Uxtwad13-35 ( for 3 consecutive months): Chronic kidney disease 15 or less: Kidney failureMayhill HospitalGlucose Hkafo2995-39-86 07:25:00* Test Item Value Reference Range Interpretation Comments Glucose Level (test code = AMA6671) 174 74-118 H [facility] HospitalCalcium Nvrsf3413-82-67 07:25:00* Test Item Value Reference Range Interpretation Comments Calcium Level (test code = 23208-8) 9.0 8.4-10.2 [facility] HospitalMagnesium Wctad4888-36-39 07:25:00* Test Item Value Reference Range Interpretation Comments Magnesium Level (test code = 40311-2) 1.8 1.3-2.1 [facility] HospitalTotal Rvadvxgab5804-49-81 07:25:00* Test Item Value Reference Range Interpretation Comments Total Bilirubin (test code = 1975-2) 0.4 0.2-1.2 [facility] HospitalAspartate Amino Transf (AST/SGOT) 2019-02-24 07:25:00* Test Item Value Reference Range Interpretation Comments Aspartate Amino Transf (AST/SGOT) (test code = Aspartate Amino Transf (AST/SGOT)) 19 5-34 [facility] HospitalAlanine Aminotransferase (ALT/SGPT) 2019-02-24 07:25:00* Test Item Value Reference Range Interpretation Comments Alanine Aminotransferase (ALT/SGPT) (test code = 1742-6) 31 0-55 [facility] HospitalTotal Fzbezlk4514-27-96 07:25:00* Test Item Value Reference Range Interpretation Comments Total Protein (test code = 2885-2) 6.1 6.5-8.1 L [facility] HospitalAlbumin2019-11-09 07:25:00* Test Item Value Reference Range Interpretation Comments Albumin (test code = 1751-7) 2.2 3.5-5.0 L [facility] HospitalGlobulin2019-11-09 07:25:00* Test Item Value Reference Range Interpretation Comments Globulin (test code = 38479-2) 3.9 2.3-3.5 H [facility] HospitalAlbumin/Globulin Mwgei0499-81-23 07:25:00 * Test Item Value Reference Range Interpretation Comments Albumin/Globulin Ratio (test code = 1759-0) 0.6 0.8-2.0 L [facility] HospitalAlkaline Iqunpuvtoaz3114-62-17 07:25:00* Test Item Value Reference Range Interpretation Comments Alkaline Phosphatase (test code = 6768-6) 233 40-150 H [facility] HospitalWhite Blood Fwouc2360-08-06 07:13:00* Test Item Value Reference Range Interpretation Comments White Blood Count (test code = 6690-2) 13.13 4.8-10.8 H [facility] HospitalRed Blood Tmvtl6610-35-90 07:13:00* Test Item Value Reference Range Interpretation Comments Red Blood Count (test code = 789-8) 3.90 3.6-5.1 [facility] HospitalHemoglobin2019-11-09 07:13:00* Test Item Value Reference Range Interpretation Comments Hemoglobin (test code = 59509-4) 12.5 12.0-16.0 [facility] HospitalHematocrit2019-11-09 07:13:00* Test Item Value Reference Range Interpretation Comments Hematocrit (test code = 4544-3) 38.5 34.2-44.1 [facility] HospitalMean Corpuscular Apbgod3534-39-26 07:13:00* Test Item Value Reference Range Interpretation Comments Mean Corpuscular Volume (test code = 787-2) 98.7 81-99 [facility] HospitalMean Corpuscular Hmnrldfqmu2998-12-10 07:13:00* Test Item Value Reference Range Interpretation Comments Mean Corpuscular Hemoglobin (test code = 785-6) 32.1 28-32 H [facility] HospitalMean Corpuscular Hemoglobin Concent 2019-02-24 07:13:00* Test Item Value Reference Range Interpretation Comments Mean Corpuscular Hemoglobin Concent (test code = 786-4) 32.5 31-35 [facility] HospitalRed Cell Distribution Cwmmh8786-26-52 07:13:00* Test Item Value Reference Range Interpretation Comments Red Cell Distribution Width (test code = 03487-3) 14.8 11.7 -14.4 H [facility] HospitalPlatelet Benlr6502-95-76 07:13:00* Test Item Value Reference Range Interpretation Comments Platelet Count (test code = 777-3) 210 140-360 [facility] HospitalNeutrophils (%) (Auto)2019-02-24 07:13:00 * Test Item Value Reference Range Interpretation Comments Neutrophils (%) (Auto) (test code = 31694-8) 73.6 38.7-80.0 [facility] HospitalLymphocytes (%) (Auto)2019-02-24 07:13:00 * Test Item Value Reference Range Interpretation Comments Lymphocytes (%) (Auto) (test code = 736-9) 17.6 18.0-39.1 L [facility] HospitalMonocytes (%) (Auto)2019-02-24 07:13:00* Test Item Value Reference Range Interpretation Comments Monocytes (%) (Auto) (test code = 5905-5) 4.4 4.4-11.3 [facility] HospitalEosinophils (%) (Auto)2019-02-24 07:13:00 * Test Item Value Reference Range Interpretation Comments Eosinophils (%) (Auto) (test code = 713-8) 0.9 0.0-6.0 [facility] HospitalBasophils (%) (Auto)2019-02-24 07:13:00* Test Item Value Reference Range Interpretation Comments Basophils (%) (Auto) (test code = 706-2) 0.5 0.0-1.0 [facility] HospitalIM GRANULOCYTES %2019-02-24 07:13:00* Test Item Value Reference Range Interpretation Comments IM GRANULOCYTES % (test code = IM GRANULOCYTES %) 3.0 0.0- 1.0 H [facility] HospitalNeutrophils # (Auto)2019-02-24 07:13:00* Test Item Value Reference Range Interpretation Comments Neutrophils # (Auto) (test code = 751-8) 9.7 2.1-6.9 H [facility] HospitalLymphocytes # (Auto)2019-02-24 07:13:00* Test Item Value Reference Range Interpretation Comments Lymphocytes # (Auto) (test code = 44441-4) 2.3 1.0-3.2 [facility] HospitalMonocytes # (Auto)2019-02-24 07:13:00* Test Item Value Reference Range Interpretation Comments Monocytes # (Auto) (test code = 742-7) 0.6 0.2-0.8 [facility] HospitalEosinophils # (Auto)2019-02-24 07:13:00* Test Item Value Reference Range Interpretation Comments Eosinophils # (Auto) (test code = 711-2) 0.1 0.0-0.4 [facility] HospitalBasophils # (Auto)2019-02-24 07:13:00* Test Item Value Reference Range Interpretation Comments Basophils # (Auto) (test code = 704-7) 0.1 0.0-0.1 [facility] HospitalAbsolute Immature Granulocyte (auto 2019-02-24 07:13:00* Test Item Value Reference Range Interpretation Comments Absolute Immature Granulocyte (auto (anita t code = Absolute Immature Granulocyte (auto) 0.39 0-0.1 H [facility] Hospitalerum or plasma magnesium measurement (mass/volume)2019-02-24 05:30:00* Test Item Value Reference Range Interpretation Comments Magnesium Level (test code = 48230-5) 1.8 1.3-2.1 [facility] HospitalBlood Nmamzwl3540-59-63 03:54:00* Test Item Value Reference Range Interpretation Comments Blood Culture (test code = 46721627) NO GROWTH AFTER 5 DAYS, FINAL REPORT [facility] HospitalINUSES (PARANASAL)MIN 3FABLH9913-34-17 08:50:00 [place] [address] Patient Name: ROSA ISELA BENITEZ MR #: [id number] : 1970 Age/Sex: 49/F Req #: [id number] [facility] Physician: PARMINDER NARVAEZ MD Ordered by: PARMINDER NARVAEZ MD Report #: [id number] Location: MED/SURG3 Room/Bed: [facility] Procedure: [id number] DX/SINUSES (PARANASAL)MIN 3VIEWS Exam Date: 02/23/19 Exam [...] 8:51 AM Dictated By: DIPAK TALBOT MD 0851 COPY TO: PARMINDER NARVAEZ C-Reactive Raaursf1424-22-57 21:19:00* Test Item Value Reference Range Interpretation Comments C-Reactive Protein (test code = 1988-5) 589 0-10 H Results confirmed ondilution.Performed at: [facility] [id number] Director: Prasanna Mishra MD, Phone: [phone] HospitalUrine Shtiees7718-99-68 08:02:00* Test Item Value Reference Range Interpretation Comments Urine Culture (test code = 630-4) No Result Data Provided [facility] HospitalErythrocyte Sedimentation Tniy0563-34-01 09:56:00* Test Item Value Reference Range Interpretation Comments Erythrocyte Sedimentation Rate (test code = 4537-7) 80 0- 20 H [facility] HospitalDifferential Total Cells Counted 2019-02-20 08:47:00* Test Item Value Reference Range Interpretation Comments Differential Total Cells Counted (test code = Zain tial Total Cells Counted) 100 [facility] HospitalNeutrophils % (Manual)2019-02-20 08:47:00 * Test Item Value Reference Range Interpretation Comments Neutrophils % (Manual) (test code = 09744-0) 74 40-74 [facility] HospitalBand Neutrophils %2019-02-20 08:47:00* Test Item Value Reference Range Interpretation Comments Band Neutrophils % (test code = 764-1) 16 [facility] HospitalLymphocytes % (Manual)2019-02-20 08:47:00 * Test Item Value Reference Range Interpretation Comments Lymphocytes % (Manual) (test code = 737-7) 3 19-48 L [facility] HospitalMonocytes % (Manual)2019-02-20 08:47:00* Test Item Value Reference Range Interpretation Comments Monocytes % (Manual) (test code = 744-3) 7 3.4-9.0 [facility] HospitalPlatelet Omaaxtyg0977-23-46 08:47:00* Test Item Value Reference Range Interpretation Comments Platelet Estimate (test code = 07015-1) SLIGHTLY DECREASED [facility] HospitalPoikilocytosis2019-11-05 08:47:00* Test Item Value Reference Range Interpretation Comments Poikilocytosis (test code = 779-9) SLIGHT [facility] HospitalAnisocytosis2019-11-05 08:47:00* Test Item Value Reference Range Interpretation Comments Anisocytosis (test code = 702-1) SLIGHT [facility] HospitalToxic Dbtozoutkoe0415-66-73 08:47:00* Test Item Value Reference Range Interpretation Comments Toxic Granulation (test code = 803-7) MODERATE [facility] HospitalRed Cell Morphology Hbmputw3051-32-09 08:47:00* Test Item Value Reference Range Interpretation Comments Red Cell Morphology Comment (test code = 6742-1) NORMAL [facility] HospitalErythrocyte sedimentation rate by Westergren vcngvl7201-09-11 07:40:00* Test Item Value Reference Range Interpretation Comments Erythrocyte Sedimentation Rate (test code = 4537-7) 80 0- 20 [facility] Hospitalerum or plasma C reactive protein measurement (mass/volume)2019-02-20 07:40:00* Test Item Value Reference Range Interpretation Comments C-Reactive Protein (test code = 1988-5) 589 0-10 Results confirmed ondilution.Performed at: [facility] [address] [id number] Director: Prasanna Mishra MD, Phone: [phone] HospitalManual blood band neutrophils form/100 xjfpezyrwe5452-75-14 04:55:00* Test Item Value Reference Range Interpretation Comments Band Neutrophils % (test code = 764-1) 16 [facility] HospitalBlood poikilocytosis detection by light dzpjrtyezo7746-97-07 04:55:00* Test Item Value Reference Range Interpretation Comments Poikilocytosis (test code = 779-9) SLIGHT [facility] HospitalBlood anisocytosis detection by light ziujgrxatc9611-17-08 04:55:00* Test Item Value Reference Range Interpretation Comments Anisocytosis (test code = 702-1) SLIGHT [facility] HospitalBlood toxic granules detection by light bqobipsfdw2363-84-16 04:55:00* Test Item Value Reference Range Interpretation Comments Toxic Granulation (test code = 803-7) MODERATE [facility] HospitalCT ABDOMEN/PELVIS KL3906-72-44 20:27:00 [place] [address] Patient Name: ROSA ISELA BENITEZ MR #: [id number] : Age/Sex: 49/F Req #: [id number] Adm Physician: PARMINDER NARVAEZ MD Ordered by: KATIE BOWEN MD Report #: [id number] Location: MED/SURG3 Room/Bed: [facility] Procedure: [id number] CT/CT ABDOMEN/PELVIS WO Exam Date: 02/19/19 Exam Ti me: 1999 REPORT STATUS: Signed C T Abdomen and Pelvis without contrast INDICATION: Rule out infection, R/O INFECTION [id number] TECHNIQUE: Thin collimation axial images obtained from [...] COPY TO: KATIE BOWEN MD Lactic Acid Lqfve9549-47-68 08:35:00* Test Item Value Reference Range Interpretation Comments Lactic Acid Level (test code = Lactic Acid Level) 3.6 0.5- 2.0 HH Results repeated and called to MAGEN MOON RN at 0834 on 02/19/19 by Kari Patton. Read back and verified.[facility] HospitalFluoroscopic procedure less than one hour omcncspa0158-10-98 07:10:00* Test Item Value Reference Range Interpretation Comments Lactic Acid Level (test code = Lactic Acid Level) 3.6 0.5- 2.0 Results repeated and called to MAGEN MOON RN at 0834 on 02/19/19 by Kari Patton. Read back and verified.[facility] HospitalFOREARM LEFT 2 [id number] 03:17:00 [place] [address] Patient Name: ROSA ISELA BENITEZ MR #: [id number] : 1970 Age/Sex: 49/F Req #: [id number] Adm Physician: Ordered by: FUNMILAYO CALLOWAY MD Report #: [id number] Location: ER Room/Bed: Procedure: 1 104-0019 DX/FOREARM LEFT 2 VIEW Exam Date: 02/19/19 Exam Time: 214 REPORT STATUS: Sign ed X-RAY RIGHT FOREARM [...] MD FOREARM RIGHT 2 VIEW 2019-02-19 03:17:00 [place] [address] Patient Name: ROSA ISELA BENITEZ MR #: [id number] : 1970 Age/Sex: 49/F Req #: [id number] Adm Physician: Ordered by: FUNMILAYO CALLOWAY MD Report #: [id number] Location: ER Room/Bed: Procedure: 1 104-0018 DX/FOREARM RIGHT 2 VIEW Exam Date: 02/19/19 Exam Time: 214 REPORT STATUS: Sig rodrigo X-RAY RIGHT FOREARM [...] CALLOWAY MD CHEST SINGLE (PORTABLE) 2019-02-19 03:14:00 [place] [address] Patient Name: ROSA ISELA BENITEZ MR #: [id number] : 1970 Age/Sex: 49/F Req #: [id number] Adm Physician: Ordered by: FUNMILAYO CALLOWAY MD Report #: [id number] Location: ER Room/Bed: Procedure: 1 104-0021 DX/CHEST [...] COPY TO: FUNMILAYO CALLOWAY 3 + VIEWS [id number] 03:13:00 [place] [address] Patient Name: ROSA ISELA BENITEZ MR #: [id number] : 1970 Age/Sex: 49/F Req #: [id number] Adm Physician: Ordered by: FUNMILAYO CALLOWAY MD Report #: [id number] Location: ER Room/Bed: Procedure: 1 -0017 DX/ANKLE 3 + VIEWS RIGHT Exam Date: 02/19/19 Exam Time: 214 REPORT STATUS: Si gned X-ray right ankle [...] TO: FUNMILAYO CALLOWAY MD KNEE RIGHT THREE [id number] 03:11:00 [place] [address] Patient Name: ROSA ISELA BENITEZ MR #: [id number] : Age/Sex: 49/F Req #: [id number] Adm Physician: Ordered by: FUNMILAYO CALLOWAY MD Report #: [id number] Location: ER Room/Bed: Procedure: 1 -0016 DX/KNEE RIGHT THREE VIEWS Exam Date: 02/19/19 [...] on 02/19/19312 COPY TO: FUNMILAYO CALLOWAY MD HIPS BILAT 3-4VWS (+/- PELVIS) 2019-02-19 03:09:00 [place] [address] Patient Name: ROSA ISELA BENITEZ MR #: [id number] : 1970 Age/Sex: 49/F Req #: [id number] [facility] Physician: Ordered by: FUNMILAYO CALLOWAY MD Report #: [id number] Location: ER Room/Bed: Procedure: 1 104-0020 DX/HIPS [...] 02/19/19310 COPY TO: FUNMILAYO CALLOWAY Bacterial urine ebbhryt6510-98-70 02:55:00* Test Item Value Reference Range Interpretation Comments Urine Culture (test code = 630-4) KLEBSIELLA P[facility]UMONIAE [facility] [id number] 02:45:00 [place] [address] Patient Name: ROSA ISELA BENITEZ MR #: [id number] : Age/Sex: 49/F Req #: [id number] Adm Physician: Ordered by: FUNMILAYO CALLOWAY MD Report #: [id number] Location: ER Room/Bed: Procedure: 1 104-0003 CT/CT [...] CALLOWAY MD CT BRAIN WO 2019-02-19 02:42:00 [place] [address] Patient Name: ROSA ISELA BENITEZ MR #: [id number] : 1970 Age/Sex: 49/F Req #: [id number] Adm Physician: Ordered by: FUNMILAYO CLALOWAY MD Report #: [id number] Location: ER Room/Bed: Procedure: 1 104-0002 CT/CT [...] COPY TO: FUNMILAYO CALLOWAY MD Creatine Kinase [id number] 02:23:00* Test Item Value Reference Range Interpretation Comments Creatine Kinase MB (test code = 49937-7) 0.60 0-5.0 [facility] HospitalTroponin [id number] 02:23:00* Test Item Value Reference Range Interpretation Comments Troponin I (test code = APW9367) < 0.001 0-0.300 [facility] HospitalCreatine Whcbkz1598-28-01 02:11:00* Test Item Value Reference Range Interpretation Comments Creatine Kinase (test code = 2157-6) 17 29-168 L [facility] HospitalActivated Partial Thromboplast Time 2019-02-19 02:02:00* Test Item Value Reference Range Interpretation Comments Activated Partial Thromboplast Time (test code = 34863-3) 22.8 23.8-35.5 L [facility] HospitalProthrombin Ljsh8652-17-58 02:01:00* Test Item Value Reference Range Interpretation Comments Prothrombin Time (test code = 5902-2) 11.9 11.9-14.5 [facility] HospitalProthromb Time International Ratio 2019-02-19 02:01:00* Test Item Value Reference Range Interpretation Comments Prothromb Time International Ratio (test code = 6301-6) 0.83 Oral Anticoagulant Therapy INR Values:1. Low Intensity Therapy 1.5 - 2.02 . Moderate Intensity Therapy 2.0 - 3.03. High Intensity Therapy(1) 2.5 - 3. 54. High Intensity Therapy(2) 3.0 - 4.05. Panic Value INR > 5.0 [facility] HospitalUrine Opiates Pxntrm2338-39-78 02:01:00* Test Item Value Reference Range Interpretation Comments Urine Opiates Screen (test code = 12943-8) POSITIVE NEGATIVE H ALL TESTS PERFORMED MANUALLY ON [employer] TOX/SEE TEST This test provides only a sc reen. Positive results should be repeated by a confirmatory test. PO SITIVE TCAMayhill HospitalUrine Barbiturates Screen 2019-02-19 02:01:00* Test Item Value Reference Range Interpretation Comments Urine Barbiturates Screen (test code = 778887365) NEGATIVE NEGA TIVE [facility] HospitalUrine Phencyclidine Bmhwho6219-08-52 02:01:00* Test Item Value Reference Range Interpretation Comments Urine Phencyclidine Screen (test code = 24043-6) NEGATIVE NEGAT DAMIEN [facility] HospitalUrine Amphetamines Etnvrz3747-42-36 02:01:00* Test Item Value Reference Range Interpretation Comments Urine Amphetamines Screen (test code = 88032-1) NEGATIVE NEGATI VE [facility] HospitalUrine Methamphetamines Azfakj2223-03-02 02:01:00* Test Item Value Reference Range Interpretation Comments Urine Methamphetamines Screen (test code = Urine Metha mphetamines Screen) NEGATIVE NEGATIVE [facility] HospitalUrine Benzodiazepines Nuymnr7793-17-11 02:01:00* Test Item Value Reference Range Interpretation Comments Urine Benzodiazepines Screen (test code = 75698-8) POSITIVE NEG ATIVE H This test provides only a screen. Positive results should be repeated by a confi rmatory test.[facility] HospitalUrine Cocaine Screen 2019-02-19 02:01:00* Test Item Value Reference Range Interpretation Comments Urine Cocaine Screen (test code = 3398-5) NEGATIVE NEGATIVE [facility] HospitalUrine Cannabinoids Vjhhue6428-50-98 02:01:00* Test Item Value Reference Range Interpretation Comments Urine Cannabinoids Screen (test code = 00139-4) NEGATIVE NEGATI VE THESE RESULTS ARE FOR MEDICAL TREATMENT ONLYTHIS REPORT CONTAINS UNCONFIR MED SCREENING RESULTS*POSITIVE RESULTS WILL BE CONFIRMED BY REFERENCE LAB UPON R EQUEST CUT-OFFDRUG CLASS CONCENTRATION ng/mLAmphetamines 1000Methamphetamines 1000Cocaine 300Opiate 300Phencyc lidine 25Cannabinoid 50Barbiturates 300Benzodiazepine 300Methadone 300[facility] Methadone Aqzlcc0376-13-09 02:01:00* Test Item Value Reference Range Interpretation Comments Urine Methadone Screen (test code = 35145-2) POSITIVE NEGATIVE H This test provides only a screen. Positive results should be repeated by a confi rmatory test.THESE RESULTS ARE FOR MEDICAL TREATMENT ONLYTHIS REPORT CONT AINS UNCONFIRMED SCREENING RESULTS*POSITIVE RESULTS WILL BE CONFIRMED BY REFEREN CE LAB UPON REQUEST CUT-OFFDRUG CLASS CON CENTRATION ng/mLAmphetamines 1000Methamp hetamines 1000Cocaine Metabolite 300Opiate 300Phencyclidine 25Cannabinoid 50Barbiturates 300Benzodiazepine 300Methadone 30 0[facility]le[facility] [id number] 02:01:00* Test Item Value Reference Range Interpretation Comments Urine WBC (test code = 5821-4) >50 0-5 H [facility] HospitalUrine YKX4903-76-67 02:01:00* Test Item Value Reference Range Interpretation Comments Urine RBC (test code = 81748-2) 6-10 0-5 H [facility] HospitalUrine Mjupmvto6529-52-31 02:01:00* Test Item Value Reference Range Interpretation Comments Urine Bacteria (test code = 92399-0) MANY NONE H [facility] HospitalUrine Epithelial Mfmlg5058-30-34 02:01:00 * Test Item Value Reference Range Interpretation Comments Urine Epithelial Cells (test code = 44878-1) FEW NONE [facility] HospitalUrine Transitional Epithelial Cells 2019-02-19 02:01:00* Test Item Value Reference Range Interpretation Comments Urine Transitional Epithelial Cells (test code = 8249-5) FEW NONE H [facility] HospitalUrine Coarse Granular Nmfqj9172-48-81 02:01:00* Test Item Value Reference Range Interpretation Comments Urine Coarse Granular Casts (test code = 97563-0) 1-5 >0 H [facility] HospitalUrine Fbobg1438-41-11 01:58:00* Test Item Value Reference Range Interpretation Comments Urine Color (test code = 5778-6) ORANGE YELLOW H [facility] HospitalUrine Jqacbma5228-06-60 01:58:00* Test Item Value Reference Range Interpretation Comments Urine Clarity (test code = 45211-5) CLOUDY CLEAR H [facility] HospitalUrine Specific Gyhcxqp1086-30-82 01:58:00 * Test Item Value Reference Range Interpretation Comments Urine Specific [place] (test code = 5811-5) >=1.030 1.010-1.02 5 [facility] HospitalUrine kR2106-83-82 01:58:00* Test Item Value Reference Range Interpretation Comments Urine pH (test code = 07631-4) 6 5-7 [facility] HospitalUrine Leukocyte Crfcjqvc3589-67-19 01:58:00* Test Item Value Reference Range Interpretation Comments Urine Leukocyte Esterase (test code = 26926-9) SMALL NEGATIV E [facility] HospitalUrine Hijcscd3933-55-87 01:58:00* Test Item Value Reference Range Interpretation Comments Urine Nitrite (test code = 14542-0) POSITIVE NEGATIVE H [facility] HospitalUrine Afalaup9813-21-45 01:58:00* Test Item Value Reference Range Interpretation Comments Urine Protein (test code = 06641-2) 1+ NEGATIVE H [facility] HospitalUrine Glucose (UA)2019-02-19 01:58:00* Test Item Value Reference Range Interpretation Comments Urine Glucose (UA) (test code = 77040-4) 1+ NEGATIVE H [facility] HospitalUrine Higfxqz1383-34-35 01:58:00* Test Item Value Reference Range Interpretation Comments Urine Ketones (test code = 51535-4) TRACE NEGATIVE H [facility] HospitalUrine Byyvgsvxrkpp2005-29-62 01:58:00* Test Item Value Reference Range Interpretation Comments Urine Urobilinogen (test code = 56397-2) 1 0.2-1 [facility] HospitalUrine Xxykoxfid8855-01-76 01:58:00* Test Item Value Reference Range Interpretation Comments Urine Bilirubin (test code = 1977-8) SMALL NEGATIVE [facility] HospitalUrine Bkmxd8291-78-72 01:58:00* Test Item Value Reference Range Interpretation Comments Urine Blood (test code = 77461-5) TRACE NEGATIVE [facility] HospitalProthrombin time (PT) in platelet poor plasma by coagulation lrwpc5952-10-62 00:28:00* Test Item Value Reference Range Interpretation Comments Prothrombin Time (test code = 5902-2) 11.9 11.9-14.5 [facility] HospitalINR in Platelet poor plasma by Coagulation mtngo0994-13-52 00:28:00* Test Item Value Reference Range Interpretation Comments Prothromb Time International Ratio (test code = 6301-6) 0.83 Oral Anticoagulant Therapy INR Values:1. Low Intensity Therapy 1.5 - 2.02 . Moderate Intensity Therapy 2.0 - 3.03. High Intensity Therapy(1) 2.5 - 3. 54. High Intensity Therapy(2) 3.0 - 4.05. Panic Value INR > 5.0 [facility] HospitalActivated partial thromboplastin time (aPTT) in platelet poor plasma by coagulation dsify2685-41-59 00:28:00* Test Item Value Reference Range Interpretation Comments Activated Partial Thromboplast Time (test code = 51264-3) 22.8 23.8-35.5 [facility] HospitalUrine opiates screening zbce0416-52-79 00:28:00* Test Item Value Reference Range Interpretation Comments Urine Opiates Screen (test code = 82904-1) POSITIVE NEGATIVE ALL TESTS PERFORMED MANUALLY ON [employer] TOX/SEE TEST This test provides only a sc reen. Positive results should be repeated by a confirmatory test. PO SITIVE TCAMayhill HospitalBarbiturates screen, urine 2019-02-19 00:28:00* Test Item Value Reference Range Interpretation Comments Urine Barbiturates Screen (test code = 507544454) NEGATIVE NEGA TIVE [facility] HospitalUrine phencyclidine detection by screening vkxnli9963-80-53 00:28:00* Test Item Value Reference Range Interpretation Comments Urine Phencyclidine Screen (test code = 39612-3) NEGATIVE NEGAT DAMIEN [facility] HospitalUrine amphetamines detection by screen method > 1000 ng/cJ7447-79-76 00:28:00* Test Item Value Reference Range Interpretation Comments Urine Amphetamines Screen (test code = 59474-1) NEGATIVE NEGATI VE [facility] HospitalFluoroscopic procedure less than one hour tcbavpls7891-29-56 00:28:00* Test Item Value Reference Range Interpretation Comments Urine Methamphetamines Screen (test code = Urine Metha mphetamines Screen) NEGATIVE NEGATIVE [facility] HospitalUrine benzodiazepines detection by screening qzsras3070-74-79 00:28:00* Test Item Value Reference Range Interpretation Comments Urine Benzodiazepines Screen (test code = 94645-8) POSITIVE NEG ATIVE This test provides only a screen. Positive results should be repeated by a confi rmatory test.[facility] HospitalUrine cocaine measurement (mass/volume)2019-02-19 00:28:00* Test Item Value Reference Range Interpretation Comments Urine Cocaine Screen (test code = 3398-5) NEGATIVE NEGATIVE [facility] HospitalUrine cannabinoids detection by screening uocvls9079-13-68 00:28:00* Test Item Value Reference Range Interpretation Comments Urine Cannabinoids Screen (test code = 49384-4) NEGATIVE NEGATI VE THESE RESULTS ARE FOR MEDICAL TREATMENT ONLYTHIS REPORT CONTAINS UNCONFIR MED SCREENING RESULTS*POSITIVE RESULTS WILL BE CONFIRMED BY REFERENCE LAB UPON R EQUEST CUT-OFFDRUG CLASS CONCENTRATION ng/mLAmphetamines 1000Methamphetamines 1000Cocaine 300Opiate 300Phencyc lidine 25Cannabinoid 50Barbiturates 300Benzodiazepine 300Methadone 300[facility]leU[facility] methadone fjkdzh6356-75-01 00:28:00* Test Item Value Reference Range Interpretation Comments Urine Methadone Screen (test code = 38744-3) POSITIVE NEGATIVE This test provides only a screen. Positive results should be repeated by a confi rmatory test.THESE RESULTS ARE FOR MEDICAL TREATMENT ONLYTHIS REPORT CONT AINS UNCONFIRMED SCREENING RESULTS*POSITIVE RESULTS WILL BE CONFIRMED BY REFEREN CE LAB UPON REQUEST CUT-OFFDRUG CLASS CON CENTRATION ng/mLAmphetamines 1000Methamp hetamines 1000Cocaine Metabolite 300Opiate 300Phencyclidine 25Cannabinoid 50Barbiturates 300Benzodiazepine 300Methadone 30 0[facility] AzleTransitional cells detection in urine sediment by light jfeyjgjdiu4199-42-83 00:28:00* Test Item Value Reference Range Interpretation Comments Urine Transitional Epithelial Cells (test code = 8249-5) FEW NONE [facility] HospitalCoarse granular casts detection in urine sediment by light qnjtthuxjd3538-77-94 00:28:00* Test Item Value Reference Range Interpretation Comments Urine Coarse Granular Casts (test code = 27285-9) 1-5 >0 [facility] or plasma creatine kinase measurement (enzymatic activity/volume)2019-02-19 00:28:00* Test Item Value Reference Range Interpretation Comments Creatine Kinase (test code = 2157-6) 17 29-168 [facility] Hospitalerum or plasma creatine kinase MB measurement (mass/volume)2019-02-19 00:28:00* Test Item Value Reference Range Interpretation Comments Creatine Kinase MB (test code = 41448-8) 0.60 0-5.0 [facility] HospitalTroponin I measurement by highly sensitive enzyme kjvknuizshw8029-38-21 00:28:00* Test Item Value Reference Range Interpretation Comments Troponin I (test code = 83207-5) < 0.001 0-0.300 [facility] HospitalBedside Mzcagff4947-35-71 13:28:00* Test Item Value Reference Range Interpretation Comments Bedside Glucose (test code = 65564-4) 323 70-120 H Meter ID: [id number] [facility]leBlood Culture 2019-02-12 20:11:00* Test Item Value Reference Range Interpretation Comments Blood Culture (test code = 90750161) NO GROWTH AFTER 5 DAYS, FINAL REPORT [facility] Hospitalodium Ucjpj8272-32-41 05:39:00* Test Item Value Reference Range Interpretation Comments Sodium Level (test code = 2951-2) 140 136-145 [facility] HospitalPotassium Ddhxp8399-59-74 05:39:00* Test Item Value Reference Range Interpretation Comments Potassium Level (test code = 2823-3) 4.3 3.5-5.1 [facility] HospitalChloride Gxgpu2915-08-89 05:39:00* Test Item Value Reference Range Interpretation Comments Chloride Level (test code = 2075-0) 104 98-107 [facility] HospitalCarbon Dioxide Gbezi1761-30-34 05:39:00* Test Item Value Reference Range Interpretation Comments Carbon Dioxide Level (test code = 2028-9) 22 22- [facility] HospitalAnion Stp8305-26-92 05:39:00* Test Item Value Reference Range Interpretation Comments Anion Gap (test code = 92244-9) 18.3 8-16 H [facility] HospitalBlood Urea Vnktwjmg4204-57-22 05:39:00* Test Item Value Reference Range Interpretation Comments Blood Urea Nitrogen (test code = 3094-0) 12 7-26 [facility] HospitalCreatinine2019-10-24 05:39:00* Test Item Value Reference Range Interpretation Comments Creatinine (test code = 2160-0) 0.76 0.57-1.11 [facility] HospitalBUN/Creatinine Ljvro0043-02-76 05:39:00* Test Item Value Reference Range Interpretation Comments BUN/Creatinine Ratio (test code = 3097-3) 16 6-25 [facility] HospitalEstimat Glomerular Filtration Rate 2019-02-08 05:39:00* Test Item Value Reference Range Interpretation Comments Estimat Glomerular Filtration Rate (test code = 012352318) > 60 >60 Ranges were taken from the National Kidney Disease Education Program and the [facility] Foundation literature.Reference ranges:60 or greater: Sxwtpq86-83 ( for 3 consecutive months): Chronic kidney disease 15 or less: Kidney failureMayhill HospitalGlucose Wyoue7949-07-71 05:39:00* Test Item Value Reference Range Interpretation Comments Glucose Level (test code = WZG0796) 183 74-118 H [facility] HospitalCalcium Lqhmj7649-69-23 05:39:00* Test Item Value Reference Range Interpretation Comments Calcium Level (test code = 13364-6) 9.1 8.4-10.2 [facility] HospitalPhosphorus Hrafu6674-19-52 05:39:00* Test Item Value Reference Range Interpretation Comments Phosphorus Level (test code = QBJ1964) 4.3 2.3-4.7 [facility] HospitalMagnesium Rebla6682-17-92 05:39:00* Test Item Value Reference Range Interpretation Comments Magnesium Level (test code = 36576-2) 2.1 1.3-2.1 [facility] HospitalTotal Dezlqjaoh3480-69-31 05:39:00* Test Item Value Reference Range Interpretation Comments Total Bilirubin (test code = 1975-2) 0.5 0.2-1.2 [facility] HospitalAspartate Amino Transf (AST/SGOT) 2019-02-08 05:39:00* Test Item Value Reference Range Interpretation Comments Aspartate Amino Transf (AST/SGOT) (test code = Aspartate Amino Transf (AST/SGOT)) 32 5-34 [facility] HospitalAlanine Aminotransferase (ALT/SGPT) 2019-02-08 05:39:00* Test Item Value Reference Range Interpretation Comments Alanine Aminotransferase (ALT/SGPT) (test code = 1742-6) 175 0-55 H [facility] HospitalTotal Ttmedfe6409-50-70 05:39:00* Test Item Value Reference Range Interpretation Comments Total Protein (test code = 2885-2) 6.3 6.5-8.1 L [facility] HospitalAlbumin2019-10-24 05:39:00* Test Item Value Reference Range Interpretation Comments Albumin (test code = 1751-7) 3.1 3.5-5.0 L [facility] HospitalGlobulin2019-10-24 05:39:00* Test Item Value Reference Range Interpretation Comments Globulin (test code = 07726-9) 3.2 2.3-3.5 [facility] HospitalAlbumin/Globulin Rduka3871-33-88 05:39:00 * Test Item Value Reference Range Interpretation Comments Albumin/Globulin Ratio (test code = 1759-0) 1.0 0.8-2.0 [facility] HospitalAlkaline Wopodzanuyn4938-43-55 05:39:00* Test Item Value Reference Range Interpretation Comments Alkaline Phosphatase (test code = 6768-6) 90 40-150 [facility] HospitalPhosphorus Jbmac2986-54-32 05:39:00* Test Item Value Reference Range Interpretation Comments Phosphorus Level (test code = NGF3794) 4.3 2.3-4.7 [facility] HospitalWhite Blood Xbybw0926-22-60 05:11:00* Test Item Value Reference Range Interpretation Comments White Blood Count (test code = 6690-2) 16.37 4.8-10.8 H [facility] HospitalRed Blood Bjcho2726-81-28 05:11:00* Test Item Value Reference Range Interpretation Comments Red Blood Count (test code = 789-8) 3.58 3.6-5.1 L [facility] HospitalHemoglobin2019-10-24 05:11:00* Test Item Value Reference Range Interpretation Comments Hemoglobin (test code = 67219-5) 11.6 12.0-16.0 L [facility] HospitalHematocrit2019-10-24 05:11:00* Test Item Value Reference Range Interpretation Comments Hematocrit (test code = 4544-3) 36.3 34.2-44.1 [facility] HospitalMean Corpuscular Ididny6740-18-24 05:11:00* Test Item Value Reference Range Interpretation Comments Mean Corpuscular Volume (test code = 787-2) 101.4 81-99 H [facility] HospitalMean Corpuscular Jvrdjlfmqv0478-46-12 05:11:00* Test Item Value Reference Range Interpretation Comments Mean Corpuscular Hemoglobin (test code = 785-6) 32.4 28-32 H [facility] HospitalMean Corpuscular Hemoglobin Concent 2019-02-08 05:11:00* Test Item Value Reference Range Interpretation Comments Mean Corpuscular Hemoglobin Concent (test code = 786-4) 32.0 31-35 [facility] HospitalRed Cell Distribution Utbca2848-44-62 05:11:00* Test Item Value Reference Range Interpretation Comments Red Cell Distribution Width (test code = 89312-1) 14.6 11.7 -14.4 H [facility] HospitalPlatelet Mrpox8424-70-79 05:11:00* Test Item Value Reference Range Interpretation Comments Platelet Count (test code = 777-3) 394 140-360 H [facility] HospitalNeutrophils (%) (Auto)2019-02-08 05:11:00 * Test Item Value Reference Range Interpretation Comments Neutrophils (%) (Auto) (test code = 86505-3) 75.7 38.7-80.0 [facility] HospitalLymphocytes (%) (Auto)2019-02-08 05:11:00 * Test Item Value Reference Range Interpretation Comments Lymphocytes (%) (Auto) (test code = 736-9) 15.1 18.0-39.1 L [facility] HospitalMonocytes (%) (Auto)2019-02-08 05:11:00* Test Item Value Reference Range Interpretation Comments Monocytes (%) (Auto) (test code = 5905-5) 7.3 4.4-11.3 [facility] HospitalEosinophils (%) (Auto)2019-02-08 05:11:00 * Test Item Value Reference Range Interpretation Comments Eosinophils (%) (Auto) (test code = 713-8) 0.6 0.0-6.0 [facility] HospitalBasophils (%) (Auto)2019-02-08 05:11:00* Test Item Value Reference Range Interpretation Comments Basophils (%) (Auto) (test code = 706-2) 0.4 0.0-1.0 [facility] HospitalIM GRANULOCYTES %2019-02-08 05:11:00* Test Item Value Reference Range Interpretation Comments IM GRANULOCYTES % (test code = IM GRANULOCYTES %) 0.9 0.0- 1.0 [facility] HospitalNeutrophils # (Auto)2019-02-08 05:11:00* Test Item Value Reference Range Interpretation Comments Neutrophils # (Auto) (test code = 751-8) 12.4 2.1-6.9 H [facility] HospitalLymphocytes # (Auto)2019-02-08 05:11:00* Test Item Value Reference Range Interpretation Comments Lymphocytes # (Auto) (test code = 61200-6) 2.5 1.0-3.2 [facility] HospitalMonocytes # (Auto)2019-02-08 05:11:00* Test Item Value Reference Range Interpretation Comments Monocytes # (Auto) (test code = 742-7) 1.2 0.2-0.8 H [facility] HospitalEosinophils # (Auto)2019-02-08 05:11:00* Test Item Value Reference Range Interpretation Comments Eosinophils # (Auto) (test code = 711-2) 0.1 0.0-0.4 [facility] HospitalBasophils # (Auto)2019-02-08 05:11:00* Test Item Value Reference Range Interpretation Comments Basophils # (Auto) (test code = 704-7) 0.1 0.0-0.1 [facility] HospitalAbsolute Immature Granulocyte (auto 2019-02-08 05:11:00* Test Item Value Reference Range Interpretation Comments Absolute Immature Granulocyte (auto (anita t code = Absolute Immature Granulocyte (auto) 0.15 0-0.1 H [facility] HospitalPhosphorus prpcsvmbwnj5545-70-50 04:45:00 * Test Item Value Reference Range Interpretation Comments Phosphorus Level (test code = KOQ8517) 4.3 2.3-4.7 [facility] HospitalUrine WEU3538-34-69 21:35:00* Test Item Value Reference Range Interpretation Comments Urine WBC (test code = 5821-4) 0-5 0-5 [facility] HospitalUrine RTU9895-08-87 21:35:00* Test Item Value Reference Range Interpretation Comments Urine RBC (test code = 61407-5) NONE 0-5 [facility] HospitalUrine Gudahejr0447-27-56 21:35:00* Test Item Value Reference Range Interpretation Comments Urine Bacteria (test code = 97524-9) MODERATE NONE H [facility] Epithelial Tacwf1996-73-23 21:35:00 * Test Item Value Reference Range Interpretation Comments Urine Epithelial Cells (test code = 71699-8) NONE NONE [facility] Zovjz6217-79-48 21:19:00* Test Item Value Reference Range Interpretation Comments Urine Color (test code = 5778-6) YELLOW YELLOW [facility] Zuptrlo3341-58-66 21:19:00* Test Item Value Reference Range Interpretation Comments Urine Clarity (test code = 07154-6) SL CLOUDY CLEAR [facility] Specific Cdxgvtp6342-51-47 21:19:00 * Test Item Value Reference Range Interpretation Comments Urine Specific [place] (test code = 5811-5) >=1.030 1.010-1.02 5 [facility] nF8372-00-07 21:19:00* Test Item Value Reference Range Interpretation Comments Urine pH (test code = 57706-0) 6 5-7 [facility] Leukocyte Arptpdnt2579-28-58 21:19:00* Test Item Value Reference Range Interpretation Comments Urine Leukocyte Esterase (test code = 14754-8) NEGATIVE NEGATIV E [facility] Xsygvcc7001-82-44 21:19:00* Test Item Value Reference Range Interpretation Comments Urine Nitrite (test code = 87671-8) NEGATIVE NEGATIVE [facility] Lrxrxgq7333-82-78 21:19:00* Test Item Value Reference Range Interpretation Comments Urine Protein (test code = 89335-6) NEGATIVE NEGATIVE [facility] Glucose (UA)2019-02-07 21:19:00* Test Item Value Reference Range Interpretation Comments Urine Glucose (UA) (test code = 05109-8) NEGATIVE NEGATIVE [facility] Lxggexq4450-06-17 21:19:00* Test Item Value Reference Range Interpretation Comments Urine Ketones (test code = 62130-1) NEGATIVE NEGATIVE [facility] Sskiwsqvjzdp0381-37-82 21:19:00* Test Item Value Reference Range Interpretation Comments Urine Urobilinogen (test code = 54463-6) 0.2 0.2-1 [facility] Oxryusqfo6194-94-75 21:19:00* Test Item Value Reference Range Interpretation Comments Urine Bilirubin (test code = 1977-8) NEGATIVE NEGATIVE [facility] Zfwoh9856-01-07 21:19:00* Test Item Value Reference Range Interpretation Comments Urine Blood (test code = 24220-1) NEGATIVE NEGATIVE [facility] Lpys1453-50-15 21:18:00* Test Item Value Reference Range Interpretation Comments Urine Test (test code = 2106-3) NEGATIVE NEGATIVE [facility] Gawo9301-97-70 21:18:00* Test Item Value Reference Range Interpretation Comments Urine Test (test code = 2106-3) NEGATIVE NEGATIVE [facility] HospitalUrine human chorionic gonadotropin (hCG) jwiztkwgu3462-82-23 20:45:00* Test Item Value Reference Range Interpretation Comments Urine Test (test code = 2106-3) NEGATIVE NEGATIVE [facility] HospitalLactic Acid Ocmmr4428-60-27 20:04:00* Test Item Value Reference Range Interpretation Comments Lactic Acid Level (test code = Lactic Acid Level) 1.6 0.5- 2.0 [facility] HospitalCHEST SINGLE (PORTABLE)2019-02-07 19:03:00 [facility] [address] [place] [address] Patient Name: ROSA ISELA BENITEZ MR #: [id number] : 1970 Age/Sex: 49/F Req #: [id number] Adm Physician: Ordered by: ESTER PASTOR MD, MD Report #: [id number] Location: ER Room/Bed: Procedure: 1023-0 072 DX/CHEST [...] 02/07/191902 COPY TO: ESTER PASTOR B-Type Natriuretic Vhimcek6862-99-94 18:26:00* Test Item Value Reference Range Interpretation Comments B-Type Natriuretic Peptide (test code = 49658-8) 58.7 0-100 [facility] HospitalCreatine Kinase OU2755-60-52 18:26:00* Test Item Value Reference Range Interpretation Comments Creatine Kinase MB (test code = 81227-9) 3.70 0-5.0 [facility] HospitalTroponin S6956-72-33 18:26:00* Test Item Value Reference Range Interpretation Comments Troponin I (test code = QRY5318) 0.011 0-0.300 [facility] HospitalB-Type Natriuretic Ojfemto0935-94-30 18:26:00* Test Item Value Reference Range Interpretation Comments B-Type Natriuretic Peptide (test code = 53697-0) 58.7 0-100 [facility] HospitalCreatine Owswyg4703-76-66 18:16:00* Test Item Value Reference Range Interpretation Comments Creatine Kinase (test code = 2157-6) 117 29-168 [facility] HospitalLipase2019-10-23 18:16:00* Test Item Value Reference Range Interpretation Comments Lipase (test code = 3040-3) [facility] HospitalLipase2019-10-23 18:16:00* Test Item Value Reference Range Interpretation Comments Lipase (test code = 3040-3) [facility] HospitalProthrombin Hnkm1846-75-55 18:05:00* Test Item Value Reference Range Interpretation Comments Prothrombin Time (test code = 5902-2) 12.4 11.9-14.5 [facility] HospitalProthromb Time International Ratio 2019-02-07 18:05:00* Test Item Value Reference Range Interpretation Comments Prothromb Time International Ratio (test code = 6301-6) 0.88 Oral Anticoagulant Therapy INR Values:1. Low Intensity Therapy 1.5 - 2.02 . Moderate Intensity Therapy 2.0 - 3.03. High Intensity Therapy(1) 2.5 - 3. 54. High Intensity Therapy(2) 3.0 - 4.05. Panic Value INR > 5.0 [facility] HospitalActivated Partial Thromboplast Time 2019-02-07 18:05:00* Test Item Value Reference Range Interpretation Comments Activated Partial Thromboplast Time (test code = 70476-9) 24.1 23.8-35.5 [facility] HospitalBNP Adv-kSmg0767-57-23 15:15:00* Test Item Value Reference Range Interpretation Comments B-Type Natriuretic Peptide (test code = 43977-3) 58.7 0-100 [facility] plasma lipase measurement (enzymatic activity/volume)2019-02-07 15:15:00* Test Item Value Reference Range Interpretation Comments Lipase (test code = 3040-3) 22 8-78 [facility] HospitalWhite Blood Cadsh8326-61-54 06:17:00* Test Item Value Reference Range Interpretation Comments White Blood Count (test code = 6690-2) 15.04 4.8-10.8 H [facility] HospitalRed Blood Elqdw6668-83-40 06:17:00* Test Item Value Reference Range Interpretation Comments Red Blood Count (test code = 789-8) 3.84 3.6-5.1 [facility] HospitalHemoglobin2019-10-14 06:17:00* Test Item Value Reference Range Interpretation Comments Hemoglobin (test code = 98141-9) 12.6 12.0-16.0 [facility] HospitalHematocrit2019-10-14 06:17:00* Test Item Value Reference Range Interpretation Comments Hematocrit (test code = 4544-3) 37.6 34.2-44.1 [facility] HospitalMean Corpuscular Jwldll0553-90-33 06:17:00* Test Item Value Reference Range Interpretation Comments Mean Corpuscular Volume (test code = 787-2) 97.9 81-99 [facility] HospitalMean Corpuscular Cxidcusclg4861-15-54 06:17:00* Test Item Value Reference Range Interpretation Comments Mean Corpuscular Hemoglobin (test code = 785-6) 32.8 28-32 H [facility] HospitalMean Corpuscular Hemoglobin Concent 2019-01-29 06:17:00* Test Item Value Reference Range Interpretation Comments Mean Corpuscular Hemoglobin Concent (test code = 786-4) 33.5 31-35 [facility] HospitalRed Cell Distribution Vgqum4385-01-22 06:17:00* Test Item Value Reference Range Interpretation Comments Red Cell Distribution Width (test code = 96781-8) 13.6 11.7 -14.4 [facility] HospitalPlatelet Sgzaf0910-63-72 06:17:00* Test Item Value Reference Range Interpretation Comments Platelet Count (test code = 777-3) 445 140-360 H [facility] HospitalNeutrophils (%) (Auto)2019-01-29 06:17:00 * Test Item Value Reference Range Interpretation Comments Neutrophils (%) (Auto) (test code = 76533-5) 71.6 38.7-80.0 [facility] HospitalLymphocytes (%) (Auto)2019-01-29 06:17:00 * Test Item Value Reference Range Interpretation Comments Lymphocytes (%) (Auto) (test code = 736-9) 20.3 18.0-39.1 [facility] HospitalMonocytes (%) (Auto)2019-01-29 06:17:00* Test Item Value Reference Range Interpretation Comments Monocytes (%) (Auto) (test code = 5905-5) 6.1 4.4-11.3 [facility] HospitalEosinophils (%) (Auto)2019-01-29 06:17:00 * Test Item Value Reference Range Interpretation Comments Eosinophils (%) (Auto) (test code = 713-8) 0.4 0.0-6.0 [facility] HospitalBasophils (%) (Auto)2019-01-29 06:17:00* Test Item Value Reference Range Interpretation Comments Basophils (%) (Auto) (test code = 706-2) 0.4 0.0-1.0 [facility] HospitalIM GRANULOCYTES %2019-01-29 06:17:00* Test Item Value Reference Range Interpretation Comments IM GRANULOCYTES % (test code = IM GRANULOCYTES %) 1.2 0.0- 1.0 H [facility] HospitalNeutrophils # (Auto)2019-01-29 06:17:00* Test Item Value Reference Range Interpretation Comments Neutrophils # (Auto) (test code = 751-8) 10.8 2.1-6.9 H [facility] HospitalLymphocytes # (Auto)2019-01-29 06:17:00* Test Item Value Reference Range Interpretation Comments Lymphocytes # (Auto) (test code = 66601-2) 3.1 1.0-3.2 [facility] HospitalMonocytes # (Auto)2019-01-29 06:17:00* Test Item Value Reference Range Interpretation Comments Monocytes # (Auto) (test code = 742-7) 0.9 0.2-0.8 H [facility] HospitalEosinophils # (Auto)2019-01-29 06:17:00* Test Item Value Reference Range Interpretation Comments Eosinophils # (Auto) (test code = 711-2) 0.1 0.0-0.4 [facility] HospitalBasophils # (Auto)2019-01-29 06:17:00* Test Item Value Reference Range Interpretation Comments Basophils # (Auto) (test code = 704-7) 0.1 0.0-0.1 [facility] HospitalAbsolute Immature Granulocyte (auto 2019-01-29 06:17:00* Test Item Value Reference Range Interpretation Comments Absolute Immature Granulocyte (auto (anita t code = Absolute Immature Granulocyte (auto) 0.18 0-0.1 H [facility] Hospitalodium Xlgsr5549-84-36 06:12:00* Test Item Value Reference Range Interpretation Comments Sodium Level (test code = 2951-2) 138 136-145 [facility] HospitalPotassium Roogb3247-87-20 06:12:00* Test Item Value Reference Range Interpretation Comments Potassium Level (test code = 2823-3) 3.5 3.5-5.1 [facility] HospitalChloride Xjstc2020-49-87 06:12:00* Test Item Value Reference Range Interpretation Comments Chloride Level (test code = 2075-0) 102 98-107 [facility] HospitalCarbon Dioxide Zpqnx4020-86-44 06:12:00* Test Item Value Reference Range Interpretation Comments Carbon Dioxide Level (test code = 2028-9) 27 22-29 [facility] HospitalAnion Fao1228-57-06 06:12:00* Test Item Value Reference Range Interpretation Comments Anion Gap (test code = 72916-4) 12.5 8-16 [facility] HospitalBlood Urea Dpeikeig2234-03-95 06:12:00* Test Item Value Reference Range Interpretation Comments Blood Urea Nitrogen (test code = 3094-0) 13 -26 [facility] HospitalCreatinine2019-10-14 06:12:00* Test Item Value Reference Range Interpretation Comments Creatinine (test code = 2160-0) 0.97 0.57-1.11 [facility] HospitalBUN/Creatinine Vxbil2707-84-42 06:12:00* Test Item Value Reference Range Interpretation Comments BUN/Creatinine Ratio (test code = 3097-3) 13 6-25 [facility] HospitalEstimat Glomerular Filtration Rate 2019-01-29 06:12:00* Test Item Value Reference Range Interpretation Comments Estimat Glomerular Filtration Rate (test code = 728500138) > 60 >60 Ranges were taken from the National Kidney Disease Education Program and the [place] [facility] Kid[facility] Foundation literature.Reference ranges:60 or greater: Typsbu30-33 ( for 3 consecutive months): Chronic kidney disease 15 or less: Kidney failureMayhill HospitalGlucose Xnuky6574-38-04 06:12:00* Test Item Value Reference Range Interpretation Comments Glucose Level (test code = DZF1032) 176 74-118 H [facility] HospitalCalcium Rlvqm6942-84-34 06:12:00* Test Item Value Reference Range Interpretation Comments Calcium Level (test code = 72901-8) 9.1 8.4-10.2 [facility] HospitalTotal Gnnxbqmoy9335-64-50 06:12:00* Test Item Value Reference Range Interpretation Comments Total Bilirubin (test code = 1975-2) 0.3 0.2-1.2 [facility] HospitalAspartate Amino Transf (AST/SGOT) 2019-01-29 06:12:00* Test Item Value Reference Range Interpretation Comments Aspartate Amino Transf (AST/SGOT) (test code = Aspartate Amino Transf (AST/SGOT)) 33 5-34 [facility] HospitalAlanine Aminotransferase (ALT/SGPT) 2019-01-29 06:12:00* Test Item Value Reference Range Interpretation Comments Alanine Aminotransferase (ALT/SGPT) (test code = 1742-6) 34 0-55 [facility] HospitalTotal Psvxspc5917-81-07 06:12:00* Test Item Value Reference Range Interpretation Comments Total Protein (test code = 2885-2) 6.2 6.5-8.1 L [facility] HospitalAlbumin2019-10-14 06:12:00* Test Item Value Reference Range Interpretation Comments Albumin (test code = 1751-7) 3.0 3.5-5.0 L [facility] HospitalGlobulin2019-10-14 06:12:00* Test Item Value Reference Range Interpretation Comments Globulin (test code = 51991-2) 3.2 2.3-3.5 [facility] HospitalAlbumin/Globulin Qyhyb8933-36-61 06:12:00 * Test Item Value Reference Range Interpretation Comments Albumin/Globulin Ratio (test code = 1759-0) 0.9 0.8-2.0 [facility] HospitalAlkaline Vzukzauflzq1856-21-91 06:12:00* Test Item Value Reference Range Interpretation Comments Alkaline Phosphatase (test code = 6768-6) 74 40-150 [facility] HospitalBedside Rsgjrgz3795-11-04 21:06:00* Test Item Value Reference Range Interpretation Comments Bedside Glucose (test code = 13492-2) 181 70-120 H Meter ID: [id number] [facility] Level 2019-01-28 06:36:00* Test Item Value Reference Range Interpretation Comments Magnesium Level (test code = 59334-8) 2.2 1.3-2.1 H [facility] HospitalCHEST 2 CEXSJ6977-39-57 10:04:00 [place] [address] Patient Name: ROSA ISELA BENITEZ MR #: [id number] : Age/Sex: 48/F Req #: [id number] Adm Physician: Ordered by: SHEY CORONEL MD Report #: [id number] Location: ER Room/Bed: Procedure: 1012-0 009 DX/CHEST [...] COPY TO: SHEY CORONEL MD CT ABDOMEN/PELVIS WQ8971-40-05 08:39:00 [place] [address] Patient Name: ROSA ISELA BENITEZ MR #: [id number] : 1970 Age/Sex: 48/F Req #: [id number] Adm Physician: Ordered by: SHEY CORONEL MD Report #: [id number] Location: ER Room/Bed: Procedure: 1012-[address]/CT [...] COPY TO: SHEY CORONEL MD Creatine Kinase GL1138-57-65 08:23:00* Test Item Value Reference Range Interpretation Comments Creatine Kinase MB (test code = 38691-5) 4.10 0-5.0 [facility] HospitalTroponin M9737-36-65 08:23:00* Test Item Value Reference Range Interpretation Comments Troponin I (test code = TZM5348) 0.014 0-0.300 [facility] HospitalCreatine Phtxal5718-00-60 08:18:00* Test Item Value Reference Range Interpretation Comments Creatine Kinase (test code = 2157-6) 76 29-168 [facility] HospitalUrine GFF8475-10-38 08:11:00* Test Item Value Reference Range Interpretation Comments Urine WBC (test code = 5821-4) 0-5 0-5 [facility] HospitalUrine LEV8491-65-43 08:11:00* Test Item Value Reference Range Interpretation Comments Urine RBC (test code = 49367-7) 0-5 0-5 [facility] HospitalUrine Atrltzcs1913-00-80 08:11:00* Test Item Value Reference Range Interpretation Comments Urine Bacteria (test code = 70290-8) RARE NONE [facility] HospitalUrine Epithelial Wwucc9686-31-22 08:11:00 * Test Item Value Reference Range Interpretation Comments Urine Epithelial Cells (test code = 60906-4) MODERATE NONE [facility] HospitalUrine Vwazv5988-25-01 08:01:00* Test Item Value Reference Range Interpretation Comments Urine Color (test code = 5778-6) YELLOW YELLOW [facility] HospitalUrine Rwomiqt9967-53-19 08:01:00* Test Item Value Reference Range Interpretation Comments Urine Clarity (test code = 77780-8) CLEAR CLEAR [facility] HospitalUrine Specific Iyfahug9447-88-87 08:01:00 * Test Item Value Reference Range Interpretation Comments Urine Specific [place] (test code = 5811-5) 1.010 1.010-1.02 5 [facility] HospitalUrine iU9448-27-63 08:01:00* Test Item Value Reference Range Interpretation Comments Urine pH (test code = 86964-0) 6.5 5-7 [facility] HospitalUrine Leukocyte Naypqhbn0201-17-60 08:01:00* Test Item Value Reference Range Interpretation Comments Urine Leukocyte Esterase (test code = 86045-4) NEGATIVE NEGATIV E [facility] HospitalUrine Slpbnmv5607-64-61 08:01:00* Test Item Value Reference Range Interpretation Comments Urine Nitrite (test code = 93405-2) NEGATIVE NEGATIVE [facility] HospitalUrine Pudyyfm5886-08-18 08:01:00* Test Item Value Reference Range Interpretation Comments Urine Protein (test code = 24088-0) NEGATIVE NEGATIVE [facility] Glucose (UA)2019-01-27 08:01:00* Test Item Value Reference Range Interpretation Comments Urine Glucose (UA) (test code = 68610-1) 2+ NEGATIVE H [facility] Oxlfjbp3198-52-05 08:01:00* Test Item Value Reference Range Interpretation Comments Urine Ketones (test code = 19795-4) NEGATIVE NEGATIVE [facility] Tgwbybhmfkjy5576-93-22 08:01:00* Test Item Value Reference Range Interpretation Comments Urine Urobilinogen (test code = 49149-6) 0.2 0.2-1 [facility] Qibeeedyx9844-28-33 08:01:00* Test Item Value Reference Range Interpretation Comments Urine Bilirubin (test code = 1977-8) NEGATIVE NEGATIVE [facility] HospitalUrine Ixzky3850-22-09 08:01:00* Test Item Value Reference Range Interpretation Comments Urine Blood (test code = 90910-4) NEGATIVE NEGATIVE [facility] HospitalBedside Kdvjhva2676-21-63 11:45:00* Test Item Value Reference Range Interpretation Comments Bedside Glucose (test code = 88863-6) 108 70-120 Meter ID: [id number] Hermann [facility] Hospitalodium Level 2018-11-29 06:48:00* Test Item Value Reference Range Interpretation Comments Sodium Level (test code = 2951-2) 134 136-145 L [facility] HospitalPotassium Tzsiu1063-86-48 06:48:00* Test Item Value Reference Range Interpretation Comments Potassium Level (test code = 2823-3) 3.8 3.5-5.1 [facility] HospitalChloride Unwiu5720-35-53 06:48:00* Test Item Value Reference Range Interpretation Comments Chloride Level (test code = 2075-0) 101 98-107 [facility] HospitalCarbon Dioxide Thtae9342-49-69 06:48:00* Test Item Value Reference Range Interpretation Comments Carbon Dioxide Level (test code = 2028-9) 23 22-29 [facility] HospitalAnion Yvc0728-52-32 06:48:00* Test Item Value Reference Range Interpretation Comments Anion Gap (test code = 37463-2) 13.8 8-16 [facility] HospitalBlood Urea Kphfpfli4221-51-78 06:48:00* Test Item Value Reference Range Interpretation Comments Blood Urea Nitrogen (test code = 3094-0) 8 7-26 [facility] HospitalCreatinine2019-08-14 06:48:00* Test Item Value Reference Range Interpretation Comments Creatinine (test code = 2160-0) 0.83 0.57-1.11 [facility] HospitalBUN/Creatinine Xowlp7385-39-47 06:48:00* Test Item Value Reference Range Interpretation Comments BUN/Creatinine Ratio (test code = 3097-3) 10 6-25 [facility] HospitalEstimat Glomerular Filtration Rate 2018-11-29 06:48:00* Test Item Value Reference Range Interpretation Comments Estimat Glomerular Filtration Rate (test code = 604708513) > 60 >60 Ranges were taken from the National Kidney Disease Education Program and the [place] [facility] Kid[facility] Foundation literature.Reference ranges:60 or greater: Xkqwvf35-31 ( for 3 consecutive months): Chronic kidney disease 15 or less: Kidney failureMayhill HospitalGlucose Engbn0201-39-17 06:48:00* Test Item Value Reference Range Interpretation Comments Glucose Level (test code = MUT7627) 128 74-118 H [facility] HospitalCalcium Yzgdq1477-48-78 06:48:00* Test Item Value Reference Range Interpretation Comments Calcium Level (test code = 09459-8) 9.2 8.4-10.2 [facility] HospitalTotal Lthircdla9759-52-32 06:48:00* Test Item Value Reference Range Interpretation Comments Total Bilirubin (test code = 1975-2) 0.4 0.2-1.2 [facility] HospitalAspartate Amino Transf (AST/SGOT) 2018-11-29 06:48:00* Test Item Value Reference Range Interpretation Comments Aspartate Amino Transf (AST/SGOT) (test code = Aspartate Amino Transf (AST/SGOT)) 42 5-34 H [facility] HospitalAlanine Aminotransferase (ALT/SGPT) 2018-11-29 06:48:00* Test Item Value Reference Range Interpretation Comments Alanine Aminotransferase (ALT/SGPT) (test code = 1742-6) 76 0-55 H [facility] Kdcvydr2912-50-35 06:48:00* Test Item Value Reference Range Interpretation Comments Total Protein (test code = 2885-2) 6.9 6.5-8.1 [facility] HospitalAlbumin2019-08-14 06:48:00* Test Item Value Reference Range Interpretation Comments Albumin (test code = 1751-7) 3.3 3.5-5.0 L [facility] HospitalGlobulin2019-08-14 06:48:00* Test Item Value Reference Range Interpretation Comments Globulin (test code = 53975-6) 3.6 2.3-3.5 H [facility] HospitalAlbumin/Globulin Ftjbq4934-94-56 06:48:00 * Test Item Value Reference Range Interpretation Comments Albumin/Globulin Ratio (test code = 1759-0) 0.9 0.8-2.0 [facility] HospitalAlkaline Zvknxrekbtc2866-78-94 06:48:00* Test Item Value Reference Range Interpretation Comments Alkaline Phosphatase (test code = 6768-6) 324 40-150 H [facility] HospitalWhite Blood Wxlzx1381-85-11 06:15:00* Test Item Value Reference Range Interpretation Comments White Blood Count (test code = 6690-2) 13.02 4.8-10.8 H [facility] HospitalRed Blood Cvpli5556-14-53 06:15:00* Test Item Value Reference Range Interpretation Comments Red Blood Count (test code = 789-8) 4.28 3.6-5.1 [facility] HospitalHemoglobin2019-08-14 06:15:00* Test Item Value Reference Range Interpretation Comments Hemoglobin (test code = 36660-4) 14.8 12.0-16.0 [facility] HospitalHematocrit2019-08-14 06:15:00* Test Item Value Reference Range Interpretation Comments Hematocrit (test code = 4544-3) 46.0 34.2-44.1 H [facility] HospitalMean Corpuscular Exmpwu1881-14-82 06:15:00* Test Item Value Reference Range Interpretation Comments Mean Corpuscular Volume (test code = 787-2) 107.5 81-99 H [facility] HospitalMean Corpuscular Hkiflmpruu6242-25-94 06:15:00* Test Item Value Reference Range Interpretation Comments Mean Corpuscular Hemoglobin (test code = 785-6) 34.6 28-32 H [facility] HospitalMean Corpuscular Hemoglobin Concent 2018-11-29 06:15:00* Test Item Value Reference Range Interpretation Comments Mean Corpuscular Hemoglobin Concent (test code = 786-4) 32.2 31-35 [facility] HospitalRed Cell Distribution Qjdmo2670-99-42 06:15:00* Test Item Value Reference Range Interpretation Comments Red Cell Distribution Width (test code = 78957-7) 14.1 11.7 -14.4 [facility] HospitalPlatelet Igmbn7998-46-08 06:15:00* Test Item Value Reference Range Interpretation Comments Platelet Count (test code = 777-3) 359 140-360 [facility] HospitalNeutrophils (%) (Auto)2018-11-29 06:15:00 * Test Item Value Reference Range Interpretation Comments Neutrophils (%) (Auto) (test code = 92589-2) 64.4 38.7-80.0 [facility] HospitalLymphocytes (%) (Auto)2018-11-29 06:15:00 * Test Item Value Reference Range Interpretation Comments Lymphocytes (%) (Auto) (test code = 736-9) 20.7 18.0-39.1 [facility] HospitalMonocytes (%) (Auto)2018-11-29 06:15:00* Test Item Value Reference Range Interpretation Comments Monocytes (%) (Auto) (test code = 5905-5) 8.8 4.4-11.3 [facility] HospitalEosinophils (%) (Auto)2018-11-29 06:15:00 * Test Item Value Reference Range Interpretation Comments Eosinophils (%) (Auto) (test code = 713-8) 3.1 0.0-6.0 [facility] HospitalBasophils (%) (Auto)2018-11-29 06:15:00* Test Item Value Reference Range Interpretation Comments Basophils (%) (Auto) (test code = 706-2) 1.2 0.0-1.0 H [facility] HospitalIM GRANULOCYTES %2018-11-29 06:15:00* Test Item Value Reference Range Interpretation Comments IM GRANULOCYTES % (test code = IM GRANULOCYTES %) 1.8 0.0- 1.0 H [facility] HospitalNeutrophils # (Auto)2018-11-29 06:15:00* Test Item Value Reference Range Interpretation Comments Neutrophils # (Auto) (test code = 751-8) 8.4 2.1-6.9 H [facility] HospitalLymphocytes # (Auto)2018-11-29 06:15:00* Test Item Value Reference Range Interpretation Comments Lymphocytes # (Auto) (test code = 16871-7) 2.7 1.0-3.2 [facility] HospitalMonocytes # (Auto)2018-11-29 06:15:00* Test Item Value Reference Range Interpretation Comments Monocytes # (Auto) (test code = 742-7) 1.2 0.2-0.8 H [facility] HospitalEosinophils # (Auto)2018-11-29 06:15:00* Test Item Value Reference Range Interpretation Comments Eosinophils # (Auto) (test code = 711-2) 0.4 0.0-0.4 [facility] HospitalBasophils # (Auto)2018-11-29 06:15:00* Test Item Value Reference Range Interpretation Comments Basophils # (Auto) (test code = 704-7) 0.2 0.0-0.1 H [facility] HospitalAbsolute Immature Granulocyte (auto 2018-11-29 06:15:00* Test Item Value Reference Range Interpretation Comments Absolute Immature Granulocyte (auto (anita t code = Absolute Immature Granulocyte (auto) 0.24 0-0.1 H [facility] HospitalUS EXTREMITY GONZALES CSS-KKP8743-70-09 16:58:00 [place] [address] Patient Name: ROSA ISELA BENITEZ MR #: [id number] : 1970 Age/Sex: 48/F Req #: [id number] Adm Physician: PARMINDER NARVAEZ MD Ordered by: KATIE BOWEN MD Report #: [id number] Location: [facility] Room/Bed: [facility] Procedure: [id number] US/US EXTREMITY GONZALES NON-VAS Exam Date: 11/24/18 [place] Time: 1438 REPORT STATUS: Signed EXAM: Focused [...] Interpretation Comments Blood Culture (test code = 41054221) NO GROWTH AFTER 5 DAYS, FINAL REPORT [facility]Blood Wwiwczw8494-90-04 19:49:00* Test Item Value Reference Range Interpretation Comments Blood Culture (test code = 07921939) NO GROWTH AFTER 5 DAYS, FINAL REPORT [facility] HospitalUS JJQNS1435-09-59 08:05:00 [place] [address] Patient Name: ROSA ISELA BENITEZ MR #: [id number] : Age/Sex: 48/F Req #: [id number] Adm Physician: PARMINDER NARVAEZ MD Ordered by: PARMINDER NARVAEZ MD Report #: [id number] Location: MED/SURG2 Room/Bed: [facility] Procedure: [id number] US/US LIVER Exam Date: 11/21/18 Exam Time: 0743 REPORT STATUS: Signed Right upper q uadrant [...] 8 COPY TO: JING NARVAEZ MD Magnesium Twagx1303-87-53 06:02:00* Test Item Value Reference Range Interpretation Comments Magnesium Level (test code = 42951-7) 2.1 1.3-2.1 [facility] HRQJSXDDY2968-01-35 17:01:00 [place] [address] Patient Name: ROSA ISELA BENITEZ MR #: [id number] : 1970 Age/Sex: 48/F Req #: [id number] Adm Physician: PARMINDER NARVAEZ MD Ordered by: PARMINDER NARVAEZ MD Report #: [id number] Location: MED/SURG2 Room/Bed: 208-1 Procedure: [id number] DX/CHEST XRAY LINE PLACEMENT Exam Date: 11/18/18 [...] 5:02 PM Dictated By: ZURI OTTO MD [facility] y Signed By: ZURI OTTO MD on 11/18/181701 Transcribed By: BRENDON on 1701 COPY TO: PARMINDER NARVAEZ MD CT FOOT RIGHT PB0391-98-71 20:35:00 [place] [address] Patient Name: ROSA ISELA BENITEZ MR #: [id number] : 1970 Age/Sex: 48/F Req #: [id number] Adm Physician: Ordered by: DIANNE BUSH MD Report #: [id number] Location: ER Room/Bed: Procedure: 24 CT/CT FOOT RIGHT WO Exam Date: 11/17/18 [...] COPY TO: DIANNE BUSH MD Lactic Acid Wmigk8783-28-13 19:20:00* Test Item Value Reference Range Interpretation Comments Lactic Acid Level (test code = Lactic Acid Level) 17.3 4.5- 19.8 [facility] HospitalLactic Acid Ftwsn1694-84-48 19:20:00* Test Item Value Reference Range Interpretation Comments Lactic Acid Level (test code = Lactic Acid Level) 17.3 4.5- 19.8 [facility] HospitalFOOT RIGHT DSKYPPSD8962-57-87 18:47:00 [place] [address] Patient Name: ROSA ISELA BENITEZ MR #: [id number] : Age/Sex: 48/F Req #: [id number] Adm Physician: Ordered by: DIANNE BUSH MD Report #: [id number] Location: ER Room/Bed: Procedure: 72 DX/FOOT RIGHT [...] 11/17/181848 COPY TO: DIANNE BUSH MD Bedside Zyzcoqx1801-37-53 07:45:00* Test Item Value Reference Range Interpretation Comments Bedside Glucose (test code = 17313-3) 137 70-120 H Meter ID: [id number] HospitalBlood Culture 2018-04-14 16:36:00* Test Item Value Reference Range Interpretation Comments Blood Culture (test code = 12013003) NO GROWTH AFTER 5 DAYS, FINAL REPORT [facility] Dkkif0033-17-66 05:18:00* Test Item Value Reference Range Interpretation Comments Sodium Level (test code = 2951-2) 136 136-145 [facility] HospitalPotassium Lussz4928-69-01 05:18:00* Test Item Value Reference Range Interpretation Comments Potassium Level (test code = 2823-3) 3.3 3.5-5.1 L [facility] HospitalChloride Kkkxz1265-78-00 05:18:00* Test Item Value Reference Range Interpretation Comments Chloride Level (test code = 2075-0) 99 98-107 [facility] HospitalCarbon Dioxide Hwbnp9508-86-83 05:18:00* Test Item Value Reference Range Interpretation Comments Carbon Dioxide Level (test code = 2028-9) 24 -29 [facility] HospitalAnion Abb6243-63-37 05:18:00* Test Item Value Reference Range Interpretation Comments Anion Gap (test code = 33155-3) 16.3 8-16 H [facility]Blood Urea Oljnnogo2445-20-84 05:18:00* Test Item Value Reference Range Interpretation Comments Blood Urea Nitrogen (test code = 3094-0) 12 11-10 [facility] HospitalCreatinine2018-12-26 05:18:00* Test Item Value Reference Range Interpretation Comments Creatinine (test code = 2160-0) 0.78 0.57-1.11 [facility] HospitalBUN/Creatinine Qijdh1579-42-75 05:18:00* Test Item Value Reference Range Interpretation Comments BUN/Creatinine Ratio (test code = 3097-3) 15 - [facility] HospitalEstimat Glomerular Filtration Rate 2018-04-12 05:18:00* Test Item Value Reference Range Interpretation Comments Estimat Glomerular Filtration Rate (test code = 718408203) > 60 >60 Ranges were taken from the National Kidney Disease Education Program and the [facility] literature.Reference ranges:60 or greater: Vnwawy86-23 ( for 3 consecutive months): Chronic kidney disease 15 or less: Kidney failureMayhill HospitalGlucose Owkij7627-69-09 05:18:00* Test Item Value Reference Range Interpretation Comments Glucose Level (test code = UKL4314) 216 74-118 H [facility] HospitalCalcium Zkhhc1247-69-46 05:18:00* Test Item Value Reference Range Interpretation Comments Calcium Level (test code = 75510-7) 9.3 8.4-10.2 [facility] HospitalTotal Zcleuziri3944-72-57 05:18:00* Test Item Value Reference Range Interpretation Comments Total Bilirubin (test code = 1975-2) 0.4 0.2-1.2 [facility] HospitalAspartate Amino Transf (AST/SGOT) 2018-04-12 05:18:00* Test Item Value Reference Range Interpretation Comments Aspartate Amino Transf (AST/SGOT) (test code = Aspartate Amino Transf (AST/SGOT)) 24 5-34 [facility] HospitalAlanine Aminotransferase (ALT/SGPT) 2018-04-12 05:18:00* Test Item Value Reference Range Interpretation Comments Alanine Aminotransferase (ALT/SGPT) (test code = 1742-6) 114 0-55 [facility] Cifafvg9273-20-95 05:18:00* Test Item Value Reference Range Interpretation Comments Total Protein (test code = 2885-2) 6.8 6.5-8.1 [facility] HospitalAlbumin2018-12-26 05:18:00* Test Item Value Reference Range Interpretation Comments Albumin (test code = 1751-7) 2.9 3.5-5.0 L [facility] HospitalGlobulin2018-12-26 05:18:00* Test Item Value Reference Range Interpretation Comments Globulin (test code = 09521-4) 3.9 2.3-3.5 H [facility] HospitalAlbumin/Globulin Rtcwv4533-36-31 05:18:00 * Test Item Value Reference Range Interpretation Comments Albumin/Globulin Ratio (test code = 1759-0) 0.7 0.8-2.0 L [facility] HospitalAlkaline Ldpenjdatrc5065-16-77 05:18:00* Test Item Value Reference Range Interpretation Comments Alkaline Phosphatase (test code = 6768-6) 98 40-150 [facility] HospitalTriglycerides Eqgko4963-08-77 05:18:00* Test Item Value Reference Range Interpretation Comments Triglycerides Level (test code = 2571-8) 133 0-149 [facility] HospitalCholesterol Lqtys7867-05-25 05:18:00* Test Item Value Reference Range Interpretation Comments Cholesterol Level (test code = 2093-3) 220 0-199 H Less than 200 mg/dL Low Wgvd944 - 239 mg/dL Borderline Gfxj714 m g/dl and greater High Risk [facility] HospitalLDL Vztlacxhfzh5279-77-36 05:18:00* Test Item Value Reference Range Interpretation Comments LDL Cholesterol (test code = 2089-1) 139 60-130 H [facility] Ytxqyfixcoe2887-23-24 05:18:00* Test Item Value Reference Range Interpretation Comments HDL Cholesterol (test code = 2085-9) 54 40-60 [facility] HospitalCholesterol/HDL Dvcpk7147-36-41 05:18:00 * Test Item Value Reference Range Interpretation Comments Cholesterol/HDL Ratio (test code = 9830-1) 4.1 3.0-3.6 H [facility] HospitalTriglycerides Dbark8845-94-53 05:18:00* Test Item Value Reference Range Interpretation Comments Triglycerides Level (test code = 2571-8) 133 0-149 [facility] HospitalCholesterol Cewpk4646-99-11 05:18:00* Test Item Value Reference Range Interpretation Comments Cholesterol Level (test code = 2093-3) 220 0-199 H Less than 200 mg/dL Low Piyl142 - 239 mg/dL Borderline Sfab051 m g/dl and greater High Risk [facility] HospitalLDL Emuetkcfiqr2201-83-02 05:18:00* Test Item Value Reference Range Interpretation Comments LDL Cholesterol (test code = 2089-1) 139 60-130 H [facility] Wtnbdlivmed8489-34-41 05:18:00* Test Item Value Reference Range Interpretation Comments HDL Cholesterol (test code = 2085-9) 54 40-60 [facility] HospitalCholesterol/HDL Lozlo4270-11-22 05:18:00 * Test Item Value Reference Range Interpretation Comments Cholesterol/HDL Ratio (test code = 9830-1) 4.1 3.0-3.6 H [facility] HospitalTriglycerides Twaks3176-64-84 05:18:00* Test Item Value Reference Range Interpretation Comments Triglycerides Level (test code = 2571-8) 133 0-149 [facility] HospitalCholesterol Lwyeh9319-75-52 05:18:00* Test Item Value Reference Range Interpretation Comments Cholesterol Level (test code = 2093-3) 220 0-199 H Less than 200 mg/dL Low Harn754 - 239 mg/dL Borderline Vqpp462 m g/dl and greater High Risk [facility] HospitalLDL Hcnjroulkgg4583-25-01 05:18:00* Test Item Value Reference Range Interpretation Comments LDL Cholesterol (test code = 2089-1) 139 60-130 H [facility] HospitalHDL Rhhpqiwmqqi5306-01-36 05:18:00* Test Item Value Reference Range Interpretation Comments HDL Cholesterol (test code = 2085-9) 54 40-60 [facility] HospitalCholesterol/HDL Nboql1661-12-12 05:18:00 * Test Item Value Reference Range Interpretation Comments Cholesterol/HDL Ratio (test code = 9830-1) 4.1 3.0-3.6 H [facility] HospitalWhite Blood Zcmws9980-35-58 04:52:00* Test Item Value Reference Range Interpretation Comments White Blood Count (test code = 6690-2) 12.93 4.8-10.8 H [facility] HospitalRed Blood Csbym1320-71-41 04:52:00* Test Item Value Reference Range Interpretation Comments Red Blood Count (test code = 789-8) 3.90 3.6-5.1 [facility] HospitalHemoglobin2018-12-26 04:52:00* Test Item Value Reference Range Interpretation Comments Hemoglobin (test code = 01845-2) 12.6 12.0-16.0 [facility] HospitalHematocrit2018-12-26 04:52:00* Test Item Value Reference Range Interpretation Comments Hematocrit (test code = 4544-3) 37.1 34.2-44.1 [facility] HospitalMean Corpuscular Gaxpyi0348-77-68 04:52:00* Test Item Value Reference Range Interpretation Comments Mean Corpuscular Volume (test code = 787-2) 95.1 81-99 [facility] HospitalMean Corpuscular Vtbhzyotmf2436-88-23 04:52:00* Test Item Value Reference Range Interpretation Comments Mean Corpuscular Hemoglobin (test code = 785-6) 32.3 28-32 H [facility] HospitalMean Corpuscular Hemoglobin Concent 2018-04-12 04:52:00* Test Item Value Reference Range Interpretation Comments Mean Corpuscular Hemoglobin Concent (test code = 786-4) 34.0 31-35 [facility] HospitalRed Cell Distribution Ttxqa3727-30-97 04:52:00* Test Item Value Reference Range Interpretation Comments Red Cell Distribution Width (test code = 68792-9) 14.2 11.7 -14.4 [facility] HospitalPlatelet Agjer8258-16-21 04:52:00* Test Item Value Reference Range Interpretation Comments Platelet Count (test code = 777-3) 413 140-360 H [facility] HospitalNeutrophils (%) (Auto)2018-04-12 04:52:00 * Test Item Value Reference Range Interpretation Comments Neutrophils (%) (Auto) (test code = 58831-1) 88.2 38.7-80.0 H [facility] HospitalLymphocytes (%) (Auto)2018-04-12 04:52:00 * Test Item Value Reference Range Interpretation Comments Lymphocytes (%) (Auto) (test code = 736-9) 8.7 18.0-39.1 L [facility] HospitalMonocytes (%) (Auto)2018-04-12 04:52:00* Test Item Value Reference Range Interpretation Comments Monocytes (%) (Auto) (test code = 5905-5) 1.2 4.4-11.3 L [facility] HospitalEosinophils (%) (Auto)2018-04-12 04:52:00 * Test Item Value Reference Range Interpretation Comments Eosinophils (%) (Auto) (test code = 713-8) 0.0 0.0-6.0 [facility] HospitalBasophils (%) (Auto)2018-04-12 04:52:00* Test Item Value Reference Range Interpretation Comments Basophils (%) (Auto) (test code = 706-2) 0.2 0.0-1.0 [facility] HospitalIM GRANULOCYTES %2018-04-12 04:52:00* Test Item Value Reference Range Interpretation Comments IM GRANULOCYTES % (test code = IM GRANULOCYTES %) 1.7 0.0- 1.0 H [facility] HospitalNeutrophils # (Auto)2018-04-12 04:52:00* Test Item Value Reference Range Interpretation Comments Neutrophils # (Auto) (test code = 751-8) 11.4 2.1-6.9 H [facility] HospitalLymphocytes # (Auto)2018-04-12 04:52:00* Test Item Value Reference Range Interpretation Comments Lymphocytes # (Auto) (test code = 70926-0) 1.1 1.0-3.2 [facility] HospitalMonocytes # (Auto)2018-04-12 04:52:00* Test Item Value Reference Range Interpretation Comments Monocytes # (Auto) (test code = 742-7) 0.2 0.2-0.8 [facility] HospitalEosinophils # (Auto)2018-04-12 04:52:00* Test Item Value Reference Range Interpretation Comments Eosinophils # (Auto) (test code = 711-2) 0.0 0.0-0.4 [facility] HospitalBasophils # (Auto)2018-04-12 04:52:00* Test Item Value Reference Range Interpretation Comments Basophils # (Auto) (test code = 704-7) 0.0 0.0-0.1 [facility] HospitalAbsolute Immature Granulocyte (auto 2018-04-12 04:52:00* Test Item Value Reference Range Interpretation Comments Absolute Immature Granulocyte (auto (anita t code = Absolute Immature Granulocyte (auto) 0.22 0-0.1 H [facility] HospitalCHEST XRAY LINE UUQICFSQE2856-99-71 13:49:00 [facility] [address] [place] [address] Patient Name: ROSA ISELA BENITEZ MR #: [id number] : 1970 Age/Sex: 48/F Req #: [id number] Adm Physician: PARMINDER NARVAEZ MD Ordered by: KATIE BOWEN MD Report #: [id number] Location: [facility] Room/Bed: [facility] Procedure: [id number] DX/CHEST XRAY LINE PLACEMENT Exam Date: 04/11/18 Ex am Time: 1330 REPORT STATUS: Signed EXAMINATION: CHEST XRAY LINE PLACEMENT INDICATION: PICC L INE PLACEMENT [id number] Y COMPARISON: 10/08/2017 FIN DINGS: AP view [...] 1:50 PM Dictated By: KIMANI CONLEY MD 1355 Transcribed By: BRENDON on 04/11/18 1353 COPY TO: KATIE BOWEN MD Hemoglobin A1c Epzdwwv0992-90-66 07:34:00* Test Item Value Reference Range Interpretation Comments Hemoglobin A1c Percent (test code = Hemoglobin A1c Percent) 7.0 4.0-7.[address] [facility] Yvaqulh9805-16-81 07:34:00 * Test Item Value Reference Range Interpretation Comments Hemoglobin A1c Percent (test code = Hemoglobin A1c Percent) 7.0 4.0-7.0 [facility] HospitalHemoglobin A1c Zlebawr4841-34-28 07:34:00 * Test Item Value Reference Range Interpretation Comments Hemoglobin A1c Percent (test code = Hemoglobin A1c Percent) 7.0 4.0-7.0 [facility] A IgM Dodkluro6697-58-54 06:27:00* Test Item Value Reference Range Interpretation Comments Hepatitis A IgM Antibody (test code = 92472-3) Negative Negativ e [facility] B Surface Jhrxxha4487-62-27 06:27:00* Test Item Value Reference Range Interpretation Comments Hepatitis B Surface Antigen (test code = 5196-1) Negative Negat damien [facility] B Core IgM Oglkufll8931-29-61 06:27:00* Test Item Value Reference Range Interpretation Comments Hepatitis B Core IgM Antibody (test code = 22271-1) Negative Ne gative [facility] C Ilcjzvfx4377-94-98 06:27:00* Test Item Value Reference Range Interpretation Comments Hepatitis C Antibody (test code = 47034-4) 0.1 0.0-0.9 Negative: < 0.8 Indeterminate: 0.8 - 0.9 Positive: > 0.9 The CDC recommends that a positive HCV antibody result be followed up with a HCV Nucleic Acid Amplification test (607419).Performed at: [facility] [address] [place], [place] [id number] Director: Prasanna Mishra MD, Phone: [phone] General Hospital A IgM Antibody 2018-04-11 06:27:00* Test Item Value Reference Range Interpretation Comments Hepatitis A IgM Antibody (test code = 29567-3) Negative Negativ e [facility] B Surface Cwygzji2399-92-62 06:27:00* Test Item Value Reference Range Interpretation Comments Hepatitis B Surface Antigen (test code = 5196-1) Negative Negat damien [facility] B Core IgM Wgzpntio7117-20-62 06:27:00* Test Item Value Reference Range Interpretation Comments Hepatitis B Core IgM Antibody (test code = 04894-0) Negative [facility] Iekbwgfq3521-12-99 06:27:00* Test Item Value Reference Range Interpretation Comments Hepatitis C Antibody (test code = 69466-0) 0.1 0.0-0.9 Negative: < 0.8 Indeterminate: 0.8 - 0.9 Positive: > 0.9 The CDC recommends that a positive HCV antibody result be followed up with a HCV Nucleic Acid Amplification test (001706).Performed at: [facility] [address] [place] [id number] Director: Prasanna Mishra MD, Phone: [phone] General Hospital A IgM Antibody 2018-04-11 06:27:00* Test Item Value Reference Range Interpretation Comments Hepatitis A IgM Antibody (test code = 12774-0) [facility] Surface Nhncreo0521-49-28 06:27:00* Test Item Value Reference Range Interpretation Comments Hepatitis B Surface Antigen (test code = 5196-1) [facility] B Core IgM Voiygqgz0241-45-75 06:27:00* Test Item Value Reference Range Interpretation Comments Hepatitis B Core IgM Antibody (test code = 69822-4) Negative Ne [facility] C Csecahht3231-81-64 06:27:00* Test Item Value Reference Range Interpretation Comments Hepatitis C Antibody (test code = 91071-9) 0.1 0.0-0.9 Negative: < 0.8 Indeterminate: 0.8 - 0.9 Positive: > 0.9 The CDC recommends that a positive HCV antibody result be followed up with a HCV Nucleic Acid Amplification test (675263).Performed at: [facility] [id number] [place] [id number] Director: Prasanna Mishra MD, Phone: [phone] [facility]US ZFPUA9265-37-71 13:19:00 [facility] [address] [place] [address] Patient Name: ROSA ISELA BENITEZ MR #: [id number] : Age/Sex: 48/F Req #: [id number] Adm Physician: PARMINDER NARVAEZ MD Ordered by: IDA BHANDARI MD Report #: [id number] Location: MED/SURG2 Room/Bed: [facility] Procedure: 02 US/US LIVER Exam Date: Exam Time: REPORT [...] 2 COPY TO: IDA BHANDARI MD Urine TSF9159-06-16 19:14:00* Test Item Value Reference Range Interpretation Comments Urine WBC (test code = 5821-4) 0-5 0-5 [facility] HospitalUrine WEZ0954-80-34 19:14:00* Test Item Value Reference Range Interpretation Comments Urine RBC (test code = 76222-0) 0-5 0-5 [facility] HospitalUrine Cpysmvym5626-99-98 19:14:00* Test Item Value Reference Range Interpretation Comments Urine Bacteria (test code = 17139-4) NONE NONE [facility] HospitalUrine Epithelial Vpkeo5265-29-09 19:14:00 * Test Item Value Reference Range Interpretation Comments Urine Epithelial Cells (test code = 10581-1) MODERATE NONE [facility] HospitalUrine CFR4134-40-93 19:14:00* Test Item Value Reference Range Interpretation Comments Urine WBC (test code = 5821-4) 0-5 0-5 [facility] HospitalUrine XFK1579-68-97 19:14:00* Test Item Value Reference Range Interpretation Comments Urine RBC (test code = 24879-6) 0-5 0-5 [facility] HospitalUrine Olauaush4602-30-79 19:14:00* Test Item Value Reference Range Interpretation Comments Urine Bacteria (test code = 38223-2) NONE NONE [facility] HospitalUrine Epithelial Ccqjg5780-78-31 19:14:00 * Test Item Value Reference Range Interpretation Comments Urine Epithelial Cells (test code = 30428-4) MODERATE NONE [facility] HospitalUrine Pbjkq5006-49-11 19:04:00* Test Item Value Reference Range Interpretation Comments Urine Color (test code = 5778-6) YELLOW YELLOW [facility] HospitalUrine Peilovd4883-92-97 19:04:00* Test Item Value Reference Range Interpretation Comments Urine Clarity (test code = 47979-0) CLEAR CLEAR [facility] HospitalUrine Specific Jmjrgse6264-28-87 19:04:00 * Test Item Value Reference Range Interpretation Comments Urine Specific [place] (test code = 5811-5) 1.010 1.010-1.02 5 [facility] HospitalUrine qD5253-20-04 19:04:00* Test Item Value Reference Range Interpretation Comments Urine pH (test code = 77829-4) 6.5 5-7 [facility] Leukocyte Yiugynhu4642-37-18 19:04:00* Test Item Value Reference Range Interpretation Comments Urine Leukocyte Esterase (test code = 5799-2) NEGATIVE NEGATIVE [facility] Ckfrfvu9184-00-36 19:04:00* Test Item Value Reference Range Interpretation Comments Urine Nitrite (test code = 83561-2) NEGATIVE NEGATIVE [facility] Mxeqxar2294-48-29 19:04:00* Test Item Value Reference Range Interpretation Comments Urine Protein (test code = 5804-0) NEGATIVE NEGATIVE [facility] Glucose (UA)2018-04-09 19:04:00* Test Item Value Reference Range Interpretation Comments Urine Glucose (UA) (test code = 2349-9) NEGATIVE NEGATIVE [facility] Lrsdvso5156-25-29 19:04:00* Test Item Value Reference Range Interpretation Comments Urine Ketones (test code = 99560-6) NEGATIVE NEGATIVE [facility] Naaxxffucuyl6203-57-78 19:04:00* Test Item Value Reference Range Interpretation Comments Urine Urobilinogen (test code = 87577-5) 0.2 0.2-1 [facility] Nyxnfwkmt9287-55-47 19:04:00* Test Item Value Reference Range Interpretation Comments Urine Bilirubin (test code = 1978-6) NEGATIVE NEGATIVE [facility] Gvzui5513-62-97 19:04:00* Test Item Value Reference Range Interpretation Comments Urine Blood (test code = 82660-4) NEGATIVE NEGATIVE [facility] HospitalU[facility] Ufcgw0016-47-77 19:04:00* Test Item Value Reference Range Interpretation Comments Urine Color (test code = 5778-6) YELLOW YELLOW [facility] HospitalUrine Hsvtdtq0492-60-72 19:04:00* Test Item Value Reference Range Interpretation Comments Urine Clarity (test code = 22269-2) CLEAR CLEAR [facility] HospitalUrine Specific Snfiarc2314-39-12 19:04:00 * Test Item Value Reference Range Interpretation Comments Urine Specific [place] (test code = 5811-5) 1.010 1.010-1.02 5 [facility] HospitalUrine jR7570-34-54 19:04:00* Test Item Value Reference Range Interpretation Comments Urine pH (test code = 57769-1) 6.5 5-7 [facility] HospitalUrine Leukocyte Tclupucb0581-29-87 19:04:00* Test Item Value Reference Range Interpretation Comments Urine Leukocyte Esterase (test code = 5799-2) NEGATIVE NEGATIVE [facility] HospitalUrine Syrfppq4315-46-30 19:04:00* Test Item Value Reference Range Interpretation Comments Urine Nitrite (test code = 54613-1) NEGATIVE NEGATIVE [facility] HospitalUrine Mjkduaw7098-06-18 19:04:00* Test Item Value Reference Range Interpretation Comments Urine Protein (test code = 5804-0) NEGATIVE NEGATIVE [facility] HospitalUrine Glucose (UA)2018-04-09 19:04:00* Test Item Value Reference Range Interpretation Comments Urine Glucose (UA) (test code = 2349-9) NEGATIVE NEGATIVE [facility] HospitalUrine Fmtisrs1025-94-66 19:04:00* Test Item Value Reference Range Interpretation Comments Urine Ketones (test code = 61640-8) NEGATIVE NEGATIVE [facility] HospitalUrine Qontztkhvjer5787-50-40 19:04:00* Test Item Value Reference Range Interpretation Comments Urine Urobilinogen (test code = 16010-5) 0.2 0.2-1 [facility] HospitalUrine Azejwflyg2544-46-18 19:04:00* Test Item Value Reference Range Interpretation Comments Urine Bilirubin (test code = 1978-6) NEGATIVE NEGATIVE [facility] HospitalUrine Vosob0681-36-15 19:04:00* Test Item Value Reference Range Interpretation Comments Urine Blood (test code = 90172-1) NEGATIVE NEGATIVE [facility] HospitalLactic Acid Tlfkl9410-88-03 16:51:00* Test Item Value Reference Range Interpretation Comments Lactic Acid Level (test code = Lactic Acid Level) 12.6 4.5- 19.8 [facility] HospitalCreatine Kinase UP9759-78-39 16:32:00* Test Item Value Reference Range Interpretation Comments Creatine Kinase MB (test code = 25009-5) 1.70 0-5.0 [facility] HospitalTrreg[facility] florencen H3185-54-25 16:32:00* Test Item Value Reference Range Interpretation Comments Troponin I (test code = CDF9633) 0.197 0-0.300 [facility] HospitalCreatine Kinase VY0274-87-38 16:32:00* Test Item Value Reference Range Interpretation Comments Creatine Kinase MB (test code = 78746-5) 1.70 0-5.0 [facility] HospitalTrDarryl [place] [address]L8833-71-79 16:32:00* Test Item Value Reference Range Interpretation Comments Troponin I (test code = JWN5728) 0.197 0-0.300 [facility] HospitalCreatine Nofrxf8860-18-55 16:25:00* Test Item Value Reference Range Interpretation Comments Creatine Kinase (test code = 2157-6) 32 [facility] HospitalLipase2018-12-23 16:25:00* Test Item Value Reference Range Interpretation Comments Lipase (test code = 3040-3) [facility] HospitalCreatine Lmadie4051-26-14 16:25:00* Test Item Value Reference Range Interpretation Comments Creatine Kinase (test code = 2157-6) 32 [facility] HospitalLipase2018-12-23 16:25:00* Test Item Value Reference Range Interpretation Comments Lipase (test code = 3040-3) [facility] 16:25:00* Test Item Value Reference Range Interpretation Comments Lipase (test code = 3040-3) [facility] HospitalActivated Partial Thromboplast Time 2018-04-09 16:14:00* Test Item Value Reference Range Interpretation Comments Activated Partial Thromboplast Time (test code = 87876-8) 29.1 23.8-35.5 [facility]Act[facility] Partial Thromboplast Time 2018-04-09 16:14:00* Test Item Value Reference Range Interpretation Comments Activated Partial Thromboplast Time (test code = 89513-2) 29.1 23.8-35.5 [facility]Act[facility] Partial Thromboplast Time 2018-04-09 16:14:00* Test Item Value Reference Range Interpretation Comments Activated Partial Thromboplast Time (test code = 28752-4) 29.1 23.8-35.5 [facility] HospitalProthrombin Gyim2579-77-52 16:13:00* Test Item Value Reference Range Interpretation Comments Prothrombin Time (test code = 5902-2) 12.5 11.9-14.5 [facility] HospitalProthromb Time International Ratio 2018-04-09 16:13:00* Test Item Value Reference Range Interpretation Comments Prothromb Time International Ratio (test code = 6301-6) 0.86 Oral Anticoagulant Therapy INR Values:1. Low Intensity Therapy 1.5 - 2.02 . Moderate Intensity Therapy 2.0 - 3.03. High Intensity Therapy(1) 2.5 - 3. 54. High Intensity Therapy(2) 3.0 - 4.05. Panic Value INR > 5.0 [facility] HospitalProthrombin Aqgn5314-00-11 16:13:00* Test Item Value Reference Range Interpretation Comments Prothrombin Time (test code = 5902-2) 12.5 11.9-14.5 [facility] HospitalProthromb Time International Ratio 2018-04-09 16:13:00* Test Item Value Reference Range Interpretation Comments Prothromb Time International Ratio (test code = 6301-6) 0.86 Oral Anticoagulant Therapy INR Values:1. Low Intensity Therapy 1.5 - 2.02 . Moderate Intensity Therapy 2.0 - 3.03. High Intensity Therapy(1) 2.5 - 3. 54. High Intensity Therapy(2) 3.0 - 4.05. Panic Value INR > 5.0 [facility] HospitalProthrombin Ntng9195-72-28 16:13:00* Test Item Value Reference Range Interpretation Comments Prothrombin Time (test code = 5902-2) 12.5 11.9-14.5 [facility] HospitalProthromb Time International Ratio 2018-04-09 16:13:00* Test Item Value Reference Range Interpretation Comments Prothromb Time International Ratio (test code = 6301-6) 0.86 Oral Anticoagulant Therapy INR Values:1. Low Intensity Therapy 1.5 - 2.02 . Moderate Intensity Therapy 2.0 - 3.03. High Intensity Therapy(1) 2.5 - 3. 54. High Intensity Therapy(2) 3.0 - 4.05. Panic Value INR > 5.0 [facility] HospitalBlood Puljyjl4404-62-48 04:17:00* Test Item Value Reference Range Interpretation Comments Blood Culture (test code = 51154481) NO GROWTH AFTER 5 DAYS, FINAL REPORT [facility] HospitalBedside Ymkwoye1521-42-38 20:11:00* Test Item Value Reference Range Interpretation Comments Bedside Glucose (test code = 69612-6) 135 70-120 H Meter ID: [id number] [facility] Cells Szebixx9807-55-02 08:02:00* Test Item Value Reference Range Interpretation Comments Differential Total Cells Counted (test code = Differgeoff tial Total Cells Counted) 100 [facility] HospitalNeutrophils % (Manual)2017-10-10 08:02:00 * Test Item Value Reference Range Interpretation Comments Neutrophils % (Manual) (test code = 87635-4) 52 40-74 [facility] HospitalLymphocytes % (Manual)2017-10-10 08:02:00 * Test Item Value Reference Range Interpretation Comments Lymphocytes % (Manual) (test code = 737-7) 29 19-48 [facility] HospitalMonocytes % (Manual)2017-10-10 08:02:00* Test Item Value Reference Range Interpretation Comments Monocytes % (Manual) (test code = 744-3) 9 3.4-9.0 [facility] HospitalEosinophils % (Manual)2017-10-10 08:02:00 * Test Item Value Reference Range Interpretation Comments Eosinophils % (Manual) (test code = 714-6) 2 0-7 [facility] HospitalMetamyelocytes %2017-10-10 08:02:00* Test Item Value Reference Range Interpretation Comments Metamyelocytes % (test code = 740-1) 3 0-0 H [facility] HospitalMyelocytes %2017-10-10 08:02:00* Test Item Value Reference Range Interpretation Comments Myelocytes % (test code = 749-2) 5 0-0 H [facility] HospitalPlatelet Nttgmckm6214-49-10 08:02:00* Test Item Value Reference Range Interpretation Comments Platelet Estimate (test code = 56107-6) ADEQUATE [facility] HospitalPlatelet Morphology Hhdczfw3073-49-24 08:02:00* Test Item Value Reference Range Interpretation Comments Platelet Morphology Comment (test code = 40440-7) NORMAL [facility] HospitalRed Cell Morphology Dcjfawl2032-62-80 08:02:00* Test Item Value Reference Range Interpretation Comments Red Cell Morphology Comment (test code = 6742-1) NORMAL [facility] HospitalDifferential Total Cells Counted 2017-10-10 08:02:00* Test Item Value Reference Range Interpretation Comments Differential Total Cells Counted (test code = Differgeoff tial Total Cells Counted) 100 [facility] HospitalNeutrophils % (Manual)2017-10-10 08:02:00 * Test Item Value Reference Range Interpretation Comments Neutrophils % (Manual) (test code = 59505-2) 52 40-74 [facility] HospitalLymphocytes % (Manual)2017-10-10 08:02:00 * Test Item Value Reference Range Interpretation Comments Lymphocytes % (Manual) (test code = 737-7) 29 19-48 [facility] HospitalMonocytes % (Manual)2017-10-10 08:02:00* Test Item Value Reference Range Interpretation Comments Monocytes % (Manual) (test code = 744-3) 9 3.4-9.0 [facility] HospitalEosinophils % (Manual)2017-10-10 08:02:00 * Test Item Value Reference Range Interpretation Comments Eosinophils % (Manual) (test code = 714-6) 2 0-7 [facility] HospitalMetamyelocytes %2017-10-10 08:02:00* Test Item Value Reference Range Interpretation Comments Metamyelocytes % (test code = 740-1) 3 0-0 H [facility] HospitalMyelocytes %2017-10-10 08:02:00* Test Item Value Reference Range Interpretation Comments Myelocytes % (test code = 749-2) 5 0-0 H [facility] HospitalPlatelet Axfjslyu4861-45-06 08:02:00* Test Item Value Reference Range Interpretation Comments Platelet Estimate (test code = 08350-2) ADEQUATE [facility] HospitalPlatelet Morphology Ucoiadv0022-30-94 08:02:00* Test Item Value Reference Range Interpretation Comments Platelet Morphology Comment (test code = 98587-0) NORMAL [facility] HospitalRed Cell Morphology Izqkicy7331-56-09 08:02:00* Test Item Value Reference Range Interpretation Comments Red Cell Morphology Comment (test code = 6742-1) NORMAL [facility] HospitalWhite Blood Aabxv7480-96-88 07:05:00* Test Item Value Reference Range Interpretation Comments White Blood Count (test code = 6690-2) 13.59 4.8-10.8 H [facility] HospitalRed Blood Qygkc7410-16-13 07:05:00* Test Item Value Reference Range Interpretation Comments Red Blood Count (test code = 789-8) 3.76 3.6-5.1 [facility] HospitalHemoglobin2018-06-25 07:05:00* Test Item Value Reference Range Interpretation Comments Hemoglobin (test code = 50735-4) 12.5 12.0-16.0 [facility] HospitalHematocrit2018-06-25 07:05:00* Test Item Value Reference Range Interpretation Comments Hematocrit (test code = 4544-3) 36.4 34.2-44.1 [facility] HospitalMean Corpuscular Mnvgax8027-10-65 07:05:00* Test Item Value Reference Range Interpretation Comments Mean Corpuscular Volume (test code = 787-2) 96.8 81-99 [facility] HospitalMean Corpuscular Lqzgwtvcpb9827-32-78 07:05:00* Test Item Value Reference Range Interpretation Comments Mean Corpuscular Hemoglobin (test code = 785-6) 33.2 28-32 H [facility] HospitalMean Corpuscular Hemoglobin Concent 2017-10-10 07:05:00* Test Item Value Reference Range Interpretation Comments Mean Corpuscular Hemoglobin Concent (test code = 786-4) 34.3 31-35 [facility] HospitalRed Cell Distribution Jrrgr0593-82-60 07:05:00* Test Item Value Reference Range Interpretation Comments Red Cell Distribution Width (test code = 73533-7) 14.9 11.7 -14.4 H [facility] HospitalPlatelet Hyprt2464-62-44 07:05:00* Test Item Value Reference Range Interpretation Comments Platelet Count (test code = 777-3) 371 140-360 H [facility] HospitalNeutrophils (%) (Auto)2017-10-10 07:05:00 * Test Item Value Reference Range Interpretation Comments Neutrophils (%) (Auto) (test code = 41864-5) 59.8 38.7-80.0 [facility] HospitalLymphocytes (%) (Auto)2017-10-10 07:05:00 * Test Item Value Reference Range Interpretation Comments Lymphocytes (%) (Auto) (test code = 736-9) 25.1 18.0-39.1 [facility] HospitalMonocytes (%) (Auto)2017-10-10 07:05:00* Test Item Value Reference Range Interpretation Comments Monocytes (%) (Auto) (test code = 5905-5) 7.7 4.4-11.3 [facility] HospitalEosinophils (%) (Auto)2017-10-10 07:05:00 * Test Item Value Reference Range Interpretation Comments Eosinophils (%) (Auto) (test code = 713-8) 0.7 0.0-6.0 [facility] HospitalBasophils (%) (Auto)2017-10-10 07:05:00* Test Item Value Reference Range Interpretation Comments Basophils (%) (Auto) (test code = 706-2) 0.9 0.0-1.0 [facility] HospitalIM GRANULOCYTES %2017-10-10 07:05:00* Test Item Value Reference Range Interpretation Comments IM GRANULOCYTES % (test code = IM GRANULOCYTES %) 5.8 0.0- 1.0 H [facility] HospitalNeutrophils # (Auto)2017-10-10 07:05:00* Test Item Value Reference Range Interpretation Comments Neutrophils # (Auto) (test code = 751-8) 8.1 2.1-6.9 H [facility] HospitalLymphocytes # (Auto)2017-10-10 07:05:00* Test Item Value Reference Range Interpretation Comments Lymphocytes # (Auto) (test code = 25215-8) 3.4 1.0-3.2 H [facility] HospitalMonocytes # (Auto)2017-10-10 07:05:00* Test Item Value Reference Range Interpretation Comments Monocytes # (Auto) (test code = 742-7) 1.1 0.2-0.8 H [facility] HospitalEosinophils # (Auto)2017-10-10 07:05:00* Test Item Value Reference Range Interpretation Comments Eosinophils # (Auto) (test code = 711-2) 0.1 0.0-0.4 [facility] HospitalBasophils # (Auto)2017-10-10 07:05:00* Test Item Value Reference Range Interpretation Comments Basophils # (Auto) (test code = 704-7) 0.1 0.0-0.1 [facility] HospitalAbsolute Immature Granulocyte (auto 2017-10-10 07:05:00* Test Item Value Reference Range Interpretation Comments Absolute Immature Granulocyte (auto (anita t code = Absolute Immature Granulocyte (auto) 0.79 0-0.1 [facility] Ueutn8597-13-88 08:10:00* Test Item Value Reference Range Interpretation Comments Sodium Level (test code = 2951-2) 139 136-145 [facility] HospitalPotassium Xicvp7447-04-22 08:10:00* Test Item Value Reference Range Interpretation Comments Potassium Level (test code = 2823-3) 3.8 3.5-5.1 [facility] HospitalChloride Uojqp3697-45-30 08:10:00* Test Item Value Reference Range Interpretation Comments Chloride Level (test code = 2075-0) 104 98-107 [facility] HospitalCarbon Dioxide Hrpgn9906-56-79 08:10:00* Test Item Value Reference Range Interpretation Comments Carbon Dioxide Level (test code = 2028-9) 24 22-29 [facility] HospitalAnion Xnc4287-77-17 08:10:00* Test Item Value Reference Range Interpretation Comments Anion Gap (test code = 34722-6) 14.8 8-16 [facility] HospitalBlood Urea Dwbczyfs2701-58-06 08:10:00* Test Item Value Reference Range Interpretation Comments Blood Urea Nitrogen (test code = 3094-0) 18 7-26 [facility] HospitalCreatinine2018-06-24 08:10:00* Test Item Value Reference Range Interpretation Comments Creatinine (test code = 2160-0) 0.78 0.57-1.11 [facility] HospitalBUN/Creatinine Aoxix6048-20-64 08:10:00* Test Item Value Reference Range Interpretation Comments BUN/Creatinine Ratio (test code = 3097-3) 23 6-25 [facility] HospitalEstimat Glomerular Filtration Rate 2017-10-09 08:10:00* Test Item Value Reference Range Interpretation Comments Estimat Glomerular Filtration Rate (test code = 37028-8) 60- >60 Ranges were taken from the National Kidney Disease Education Program and the [facility] literature.Reference ranges:60 or greater: [place]69-17 ( for 3 consecutive months): Chronic kidney disease 15 or less: Kidney failureMayhill HospitalGlucose Qysxi7744-00-87 08:10:00* Test Item Value Reference Range Interpretation Comments Glucose Level (test code = JEF1003) 125 74-118 H [facility] HospitalCalcium Qngcs3471-72-93 08:10:00* Test Item Value Reference Range Interpretation Comments Calcium Level (test code = 25522-6) 9.2 8.4-10.2 [facility] HospitalTotal Mxskmyaao8844-97-04 08:10:00* Test Item Value Reference Range Interpretation Comments Total Bilirubin (test code = 1975-2) 0.3 0.2-1.2 [facility] HospitalAspartate Amino Transf (AST/SGOT) 2017-10-09 08:10:00* Test Item Value Reference Range Interpretation Comments Aspartate Amino Transf (AST/SGOT) (test code = Aspartate Amino Transf (AST/SGOT)) 22 5-34 [facility] HospitalAlanine Aminotransferase (ALT/SGPT) 2017-10-09 08:10:00* Test Item Value Reference Range Interpretation Comments Alanine Aminotransferase (ALT/SGPT) (test code = 1742-6) 43 0-55 [facility] HospitalTotal Qgkmwpf9266-94-99 08:10:00* Test Item Value Reference Range Interpretation Comments Total Protein (test code = 2885-2) 6.6 6.5-8.1 [facility] HospitalAlbumin2018-06-24 08:10:00* Test Item Value Reference Range Interpretation Comments Albumin (test code = 1751-7) 3.1 3.5-5.0 L [facility] HospitalGlobulin2018-06-24 08:10:00* Test Item Value Reference Range Interpretation Comments Globulin (test code = 79011-6) 3.5 2.3-3.5 [facility] HospitalAlbumin/Globulin Jsjaw2008-67-91 08:10:00 * Test Item Value Reference Range Interpretation Comments Albumin/Globulin Ratio (test code = 1759-0) 0.9 0.8-2.0 [facility] HospitalAlkaline Zmxbrwlycre2597-33-14 08:10:00* Test Item Value Reference Range Interpretation Comments Alkaline Phosphatase (test code = 6768-6) 76 40-150 [facility] HospitalTriglycerides Ttjgi3470-44-95 08:10:00* Test Item Value Reference Range Interpretation Comments Triglycerides Level (test code = 2571-8) 677 0-149 H [facility] HospitalCholesterol Rlqay2217-18-69 08:10:00* Test Item Value Reference Range Interpretation Comments Cholesterol Level (test code = 2093-3) 267 0-199 H Less than 200 mg/dL Low Puca829 - 239 mg/dL Borderline Wsss711 m g/dl and greater High Risk [facility] HospitalHDL Zgxumltkeis3903-48-33 08:10:00* Test Item Value Reference Range Interpretation Comments HDL Cholesterol (test code = 2085-9) 50 40-60 [facility] HospitalCholesterol/HDL Hubsr2561-78-92 08:10:00 * Test Item Value Reference Range Interpretation Comments Cholesterol/HDL Ratio (test code = 9830-1) 5.3 3.0-3.6 H [facility] HospitalCreatine Kinase DU6177-71-27 19:38:00* Test Item Value Reference Range Interpretation Comments Creatine Kinase MB (test code = 08881-0) 2.40 0-5.0 [facility] HospitalTroponin T8637-08-16 19:38:00* Test Item Value Reference Range Interpretation Comments Troponin I (test code = WER1130) -0.001 0-0.300 [facility] HospitalCreatine Rpvbmm1702-77-33 19:28:00* Test Item Value Reference Range Interpretation Comments Creatine Kinase (test code = 2157-6) 84 29-168 [facility] HospitalUrine Leukocyte Xqvfgvtw1476-91-47 14:17:00* Test Item Value Reference Range Interpretation Comments Urine Leukocyte Esterase (test code = 5799-2) 1+ NEGATIVE H --- 10/08/17 1416 ---LEUKO ESTERASE previously reported as: NEGATIVE [facility] HospitalUrine FJW3197-27-51 14:13:00* Test Item Value Reference Range Interpretation Comments Urine WBC (test code = 5821-4) 6-10 0-5 H [facility] HospitalUrine UXR2735-53-30 14:13:00* Test Item Value Reference Range Interpretation Comments Urine RBC (test code = 79059-9) 0-5 0-5 [facility] HospitalUrine Bbjgmrjv4175-57-19 14:13:00* Test Item Value Reference Range Interpretation Comments Urine Bacteria (test code = 39337-9) FEW NONE [facility] HospitalUrine Epithelial Knhha3911-57-35 14:13:00 * Test Item Value Reference Range Interpretation Comments Urine Epithelial Cells (test code = 74802-4) FEW NONE [facility] HospitalUrine Fglta3585-38-67 14:09:00* Test Item Value Reference Range Interpretation Comments Urine Color (test code = 5778-6) YELLOW YELLOW [facility] HospitalUrine Kdfzwjq8723-07-14 14:09:00* Test Item Value Reference Range Interpretation Comments Urine Clarity (test code = 73445-6) CLEAR CLEAR [facility] HospitalUrine Specific Yvjazxb5259-37-48 14:09:00 * Test Item Value Reference Range Interpretation Comments Urine Specific [place] (test code = 5811-5) 1.020 1.010-1.02 5 [facility] HospitalUrine qM3988-88-58 14:09:00* Test Item Value Reference Range Interpretation Comments Urine pH (test code = 13668-1) 6 5-7 [facility] HospitalUrine Wjeqidd0070-81-68 14:09:00* Test Item Value Reference Range Interpretation Comments Urine Nitrite (test code = 98180-0) NEGATIVE NEGATIVE [facility] HospitalUrine Skbgnaa9623-89-31 14:09:00* Test Item Value Reference Range Interpretation Comments Urine Protein (test code = 5804-0) NEGATIVE NEGATIVE [facility] HospitalUrine Glucose (UA)2017-10-08 14:09:00* Test Item Value Reference Range Interpretation Comments Urine Glucose (UA) (test code = 2349-9) NEGATIVE NEGATIVE [facility] HospitalUrine Qwjmaca9499-70-66 14:09:00* Test Item Value Reference Range Interpretation Comments Urine Ketones (test code = 96248-5) NEGATIVE NEGATIVE [facility] HospitalUrine Jtujuexglpro1365-81-09 14:09:00* Test Item Value Reference Range Interpretation Comments Urine Urobilinogen (test code = 03631-2) 0.2 0.2-1 [facility] HospitalUrine Iasmwtxsq1628-88-60 14:09:00* Test Item Value Reference Range Interpretation Comments Urine Bilirubin (test code = 1978-6) NEGATIVE NEGATIVE [facility] HospitalUrine Olkhz9253-00-14 14:09:00* Test Item Value Reference Range Interpretation Comments Urine Blood (test code = 32599-0) NEGATIVE NEGATIVE [facility] HospitalUrine Ooon9869-01-52 14:09:00* Test Item Value Reference Range Interpretation Comments Urine Test (test code = 2106-3) NEGATIVE NEGATIVE [facility] HospitalUrine Zjlo3454-62-22 14:09:00* Test Item Value Reference Range Interpretation Comments Urine Test (test code = 2106-3) NEGATIVE NEGATIVE [facility] HospitalHemoglobin A1c Mlhxfjc4704-71-19 08:53:00 * Test Item Value Reference Range Interpretation Comments Hemoglobin A1c Percent (test code = Hemoglobin A1c Percent) 7.0 4.0-7.0 [facility] HospitalThyroid Stimulating Hormone (TSH) 2017-10-08 04:23:00* Test Item Value Reference Range Interpretation Comments Thyroid Stimulating Hormone (TSH) (test code = 60312-6) 1.862 0.350-4.940 [facility] HospitalThyroid Stimulating Hormone (TSH) 2017-10-08 04:23:00* Test Item Value Reference Range Interpretation Comments Thyroid Stimulating Hormone (TSH) (test code = 94144-9) 1.862 0.350-4.940 [facility] HospitalCHEST SINGLE (PORTABLE)2017-10-08 04:20:00 [place] [address] Patient Name: ROSA ISELA BENITEZ MR #: [id number] : 1970 Age/Sex: 47/F Req #: [id number] Adm Physician: Ordered by: ALAN NAJERA MD Report #: [id number] Location: ER Room/Bed: Procedure: DX/CHEST SINGLE (PORTABLE ) Exam Date: 10/08/17 Exam Time: 356 REPORT S TATUS: Signed CHEST SINGLE (PORTABLE), 10/08/2017 3:32 [...] COPY TO: ALAN NAJERA MD LOWER LEG MHQYF0267-20-12 04:18:00 [place] [address] Patient Name: ROSA ISELA BENITEZ MR #: [id number] : 1970 Age/Sex: 47/F Req #: [id number] Adm Physician: Ordered by: ALAN NAJERA MD Report #: [id number] Location: ER Room/Bed: Procedure: [id number] DX/LOWER LEG RIGHT Exam Date: 10/08/17 Exam Time: 356 REPORT STATUS: S igned LOWER LEG RIGHT Comparison: 10/17/2012 Clinical history: S KELLIE YO MA, PAIN RIGHT LEG S [id number] S [id number] Findings: Mild diffuse soft tissue swelling, worse [...] COPY TO: ALAN NAJERA MD B-Type Natriuretic Rjelbaw3063-67-22 04:06:00* Test Item Value Reference Range Interpretation Comments B-Type Natriuretic Peptide (test code = 61432-3) 17.1 0-100 [facility] HospitalB-Type Natriuretic Sawduiz5797-27-29 04:06:00* Test Item Value Reference Range Interpretation Comments B-Type Natriuretic Peptide (test code = 39808-2) 17.1 0-100 [facility] HospitalProthrombin Whpp1160-46-54 03:58:00* Test Item Value Reference Range Interpretation Comments Prothrombin Time (test code = 5902-2) 12.0 11.9-14.5 [facility] HospitalProthromb Time International Ratio 2017-10-08 03:58:00* Test Item Value Reference Range Interpretation Comments Prothromb Time International Ratio (test code = 6301-6) 0.96 Oral Anticoagulant Therapy INR Values:1. Low Intensity Therapy 1.5 - 2.02 . Moderate Intensity Therapy 2.0 - 3.03. High Intensity Therapy(1) 2.5 - 3. 54. High Intensity Therapy(2) 3.0 - 4.05. Panic Value INR > 5.0 [facility] HospitalActivated Partial Thromboplast Time 2017-10-08 03:58:00* Test Item Value Reference Range Interpretation Comments Activated Partial Thromboplast Time (test code = 57708-7) 25.0 23.8-35.5 [facility] HospitalD-Dimer Quantitative (PE/DVT)2017-10-08 03:58:00* Test Item Value Reference Range Interpretation Comments D-Dimer Quantitative (PE/DVT) (test code = 48998-1) 0.86 0. 00-0.45 H As with all in vitro diagnostic tests, the test results should be interpreted by the physician in conjunction with clinical findings and other test results.Test results are reported in NEW D-dimer units(ug/mLFEU).[facility]2018-06-23 03:58:00* Test Item Value Reference Range Interpretation Comments Magnesium Level (test code = 82766-9) 1.9 1.3-2.1 [facility] HospitalD-Dimer Quantitative (PE/DVT)2017-10-08 03:58:00* Test Item Value Reference Range Interpretation Comments D-Dimer Quantitative (PE/DVT) (test code = 43651-0) 0.86 0. 00-0.45 H As with all in vitro diagnostic tests, the test results should be interpreted by the physician in conjunction with clinical findings and other test results.Test results are reported in NEW D-dimer units(ug/mLFEU).[facility]2018-06-23 03:58:00* Test Item Value Reference Range Interpretation Comments Magnesium Level (test code = 68854-1) 1.9 1.3-2.1 [facility]
[2020-03-11 18:28] LABS: EPITHELIAL CELLS,URINE FEW /LPF
--- NOTE | 2020-03-11 18:38 | Diagnostic Imaging Report ---
EXAMINATION: CHEST SINGLE (PORTABLE) INDICATION:LE EDEMA COMPARISON: Multiple prior chest x-ray examinations most recent dated 01/09/2020. FINDINGS: AP view TUBES and LINES: Left PICC line removed.. . LUNGS/PLEURA: Lungs are well inflated. There are very mild bilateral interstitial opacities likely representing pulmonary edema.. There is no pleural effusion or pneumothorax. HEART AND MEDIASTINUM: The cardiomediastinal silhouette is unremarkable. BONES AND SOFT TISSUES: No acute osseous lesion. Soft tissues are unremarkable. UPPER ABDOMEN: No free air under the diaphragm. IMPRESSION: Unchanged very mild bilateral interstitial opacities likely representing very mild pulmonary edema.. Signed by: Ho Griffith MD on 03/11/2020 6:34 PM
[2020-03-11] MEDS: DIPHENHYDRAMINE HCL INJ 50 MG/ML VIAL IV SCH (18:41)
[2020-03-11] MEDS ORDERED: SODIUM CHLORIDE 0.9% 1000ML 1,000 ML IV SCH (18:45)
--- OUTSIDE RECORDS SUMMARY | 2020-03-11 18:46 | XMS REPORT | Continuity of Care Document ---
Author Author [facility] Organization [facility] Address [address] [place] [address] Phone Unavailable Care Team Providers Care Auto Radiator Specialist Name Role Phone SOLANGE SORIA, MD ZURITA PCP Arsen NAJERA Attphys Unavailable PARMINDER NARVAEZ Attphys Unavailable ESTER PASTOR Attphys Unavailable Kiko CORONEL AMBICA Attphys Unavailable PARMINDER NARVAEZ Admphys Unavailable Payers Payer Name Policy Type Policy Number Effective Date Expiration Date Kiko [facility] [id number] 2011 00:00:00 [facility] Problems Condition Name Condition Details Condition Category Status Onset Date Resolution Date Last Treatment Date Treating Clinician Comments Source Chronic bronchitis Chronic bronchitis Problem Active 2014-07-02 00:00:0 0 [facility] Candidiasis of mouth and esophagus Thrush of mouth and esophagus Pr oblem Active 2014-07-02 00:00:00 [facility] Cellulitis Cellulitis Problem Active [facility] Edema of foot Pedal edema Problem Active [facility] Hypokalemia Hypokalemia Problem Active [facility] Edema Edema Problem Active [facility] Leukocytosis Elevated WBC count Problem Active [facility] Lupus erythematosus Lupus Problem Active [facility] Fall Fall Problem Active [facility] Laceration of left forearm Laceration of left forearm Problem Active [facility] Severe sepsis Severe sepsis Problem Active [facility] Urinary tract infection UTI (urinary tract infection) Problem Active [facility] Laceration of right knee Problem Active [facility] Cellulitis of both lower extremities Problem Active [facility] Cellulitis and abscess of foot excluding toe Problem Active [facility] Allergies, Adverse Reactions, Alerts Allergy Name Allergy Type Status Severity Reaction(s) Onset Date Inacti ve Date Treating Clinician Comments Source Meropenem Propensity to adverse reactions Active hives 20190 803 00:00:00 [facility] Cefepime Allergy to substance Active 2018-11-17 00:00:00 [facility] Linezolid Allergy to substance Active Moderate 2018-04-11 00:00:00 [facility] Fish Containing Products Allergy to substance Active Severe 2018-04-09 00:00:00 [facility] Iodine Allergy to substance Active 2018-04-09 00:00:00 [facility] Neomycin Allergy to substance Active Moderate causes skin to get crusty and yellow 2018-04-09 00:00:00 [facility] Bacitracin Allergy to substance Active Moderate causes skin to get yellow and crusty 2018-04-09 00:00:00 [facility] Vancomycin Allergy to substance Active Severe honey symdrome ? 2018-04-09 00:00:00 [facility] Polymyxin b Allergy to substance Active Moderate causes skin to get crusty and yellow 2018-04-09 00:00:00 [facility] shellfish derived Allergy to substance Active Severe 2018-03-19 3 00:00:00 [facility] CHITOSAN Allergy to substance Active 2016-07-06 00:00:00 [facility] Social History Social Habit Start Date Stop Date Quantity Comments Source Sex Assigned At 1970 00:00:00 1970 00:00:00 Female [facility] Medications Ordered Medication Name Filled Medication Name Start Date Stop Da te Current Medication? Ordering Clinician Indication Dosage Frequency Signature (SIG) Comments Components Source Albuterol Sulfate (Ventolin Hfa) 18 Gm HFA.AER.AD Albu terol Sulfate (Ventolin Hfa) 18 Gm HFA.AER.AD Yes Every 4 Hours as needed for Allergy [facility] Alprazolam Alprazolam Yes .25 Three Time s A Day as needed for Anxiety [facility] Atenolol Atenolol Yes 25 Twice A Day [facility] Cyclobenzaprine Hcl Cyclobenzaprine Hcl Yes 10 Three Times A Day as needed for Muscle Spasms [facility] Epinephrine Epinephrine Yes C HI [facility] Eszopiclone (Lunesta) 3 Mg TABLET Eszopiclone (Lunesta) 3 Mg TABLET Yes 3 Bedtime [facility] Furosemide Furosemide Yes 40 Daily as needed fo r Swelling [facility] Glimepiride Glimepiride Yes 4 Twice A Day [facility] Hydrocodone Bit/Acetaminophen (Hydrocodon-Acetaminophn 10-325) 1 Each TABLET Hydrocodone Bit/Acetaminophen (Hydrocodon-Acetaminophn 10-325) 1 Each TABLET Yes 1 Every 8 Hours as needed for Mode rate Pain (4-6) [facility] Lisinopril Lisinopril Yes 2.5 Daily as needed fo r Blood Pressure [facility] Promethazine Hcl Promethazine Hcl Yes 25 Q 6 H Prn [facility] Santyl Santyl Yes 1 Daily [facility] Sertraline Hcl Sertraline Hcl Yes 50 Da justen as needed for Agitation [facility] Zolpidem Tartrate Zolpidem Tartrate 2020-01-04 00:00:00 No 10 Bedtime [facility] Blood Sugar Diagnostic (One Touch Ultra Test Strips) 1 Each STRIP Blood Sugar Diagnostic (One Touch Ultra Test Strips) 1 Each STRIP 2019-02-07 00:00:00 No [facility] Carisoprodol (Soma) 350 Mg TABLET Carisoprodol (Soma) 350 Mg TAB LET 2018-11-18 00:00:00 No 350 Q8hrs [facility] Cephalexin Cephalexin 2018-11-18 00:00:00 No 750 Thr ee Times A Day [facility] Cephalexin Monohydrate (Keflex) 750 Mg CAPSULE Cephale isma Monohydrate (Keflex) 750 Mg CAPSULE 2018-11-18 00:00:00 No 1000 Every 8 H ours [facility] Ciprofloxacin Hcl (Cipro) 500 Mg TABLET Ciprofloxacin Hcl (C ipro) 500 Mg TABLET 2018-11-18 00:00:00 No 500 Twice A Day [facility] Doxycycline Hyclate Doxycycline Hyclate 2018-11-18 00:00:00 No 100 Every 12 Hours [facility] Doxycycline Hyclate Doxycycline Hyclate 2018-11-18 00:00:00 No 100 Twice A Day [facility] Hydrochlorothiazide Hydrochlorothiazide 2018-11-18 00:00:00 No 50 Daily [facility] Hydrocodone Bit/Acetaminophen (Vicodin Es 7.5-750 Mg T ablet) 1 Each TABLET Hydrocodone Bit/Acetaminophen (Vicodin Es 7.5-750 Mg Tablet) 1 Each TABLET 2018-11-18 00:00:00 No Q6hrs [facility] Metronidazole (Flagyl) 250 Mg TABLET Metronidazole (Flagyl) 250 Mg TABLET 2018-11-18 00:00:00 No 500 Every 8 Hours [facility] Lactulose Lactulose 2017-10-12 00:00:00 No 30 Every 8 Hours as needed for Constipation [facility] Sennosides/Docusate Sodium (Senna Laxative Tablet) 1 E ach TABLET Sennosides/Docusate Sodium (Senna Laxative Tablet) 1 Each TABLET 2017-10-12 00:00:00 No 1 Twice A Day [facility] Triamcinolone Acetonide (Kenalog-10) 10 Mg/1 Ml VIAL T riamcinolone Acetonide (Kenalog-10) 10 Mg/1 Ml VIAL 2012-10-16 00:00:00 No 1 Q6-8WEEKS [facility] Vital Signs Vital Name Observation Time Observation Value Comments Source Oxygen saturation by Pulse oximetry 2020-03-03 02:35:00 100 /min [facility] Weight 2020-03-03 01:17:00 174 [lb_av] [facility] BMI (Body Mass Index) 2020-03-03 01:17:00 29.9 kg/m2 [facility] Body Temperature 2020-01-18 09:00:00 97.4 [degF] [facility] Heart Rate 2020-01-18 09:00:00 90 /min [facility] Respiratory rate 2020-01-18 09:00:00 18 /min [facility] BP Systolic 2020-01-18 09:00:00 150 mm[Hg] [facility] BP Diastolic 2020-01-18 09:00:00 97 mm[Hg] [facility] Body Temperature 2020-01-18 08:00:00 97.4 [degF] [facility] Weight 2020-01-17 04:00:00 174 [lb_av] [facility] BMI (Body Mass Index) 2020-01-17 04:00:00 29.9 kg/m2 [facility] Body Temperature 2019-10-08 09:03:00 98.7 [degF] [facility] Weight 2019-10-07 00:47:00 175.50 [lb_av] [facility] BMI (Body Mass Index) 2019-10-07 00:47:00 30.1 kg/m2 [facility] Procedures Procedure Date / Time Performed Performing Clinician Rajesh jose CT of right lower extremity without contrast 2020-01-14 00:00:00 [facility] INSERTION OF INFUSION DEV INTO SUP VENA CAVA, PERC APPROACH 2019-10-05 00:00:00 [facility] Computed tomography of brain without radiopaque contrast 2019-09 00:00:00 [facility] Plan of Care Planned Activity Planned Date Details Comments Source Instructions Cellulitis [facility] Encounters Start Date/Time End Date/Time Encounter Type Admission Type Attendi [facility] Care Department Encounter ID Source 2020-03-03 01:22:00 2020-03-03 02:40:00 Departed Emergency Room [facility] [id number] [facility] 2020-01-04 05:10:00 2020-01-18 09:58:00 Discharged Inpatient 1 PARMINDER NARVAEZ [facility] [id number] [facility] 2019-10-01 07:48:00 2019-10-08 11:55:00 Discharged Inpatient 1 PARMINDER NARVAEZ [facility] [id number] [facility] 2019-02-19 04:25:00 2019-02-26 09:53:00 Discharged Inpatient 1 PARMINDER NARVAEZ [facility] [id number] [facility] 2019-02-07 17:41:00 2019-02-13 13:55:00 Discharged Inpatient 1 ESTER PASTOR [facility] [id number] [facility] Tasia k[facility] 2019-01-27 11:45:00 2019-01-29 10:43:00 Discharged Inpatient (obs) [facility] [id number] I . [facility] 2018-11-17 19:27:00 2018-11-29 14:08:00 Discharged Inpatient 1 PARMINDER NARVAEZ [facility] [id number] [facility] 2018-04-09 16:03:00 2018-04-16 11:03:00 Discharged Inpatient 1 PARMINDER NARVAEZ [facility] [id number] [facility] 2017-10-08 06:02:00 2017-10-13 06:19:00 Discharged Inpatient 1 ALAN NAJERA [facility] [id number] [facility] Results Test Description Test Time Test Comments Results Result Comments Source CHEST SINGLE (PORTABLE) 2020-03-11 18:30:00 [facility] 1970 Sex: F [place] [address] Patient Name: ROSA ISELA BENITEZ MR #: [id number] : 1970 Age/Sex: 50/F Req #: [id number] Adm Physician: Ordered by: ALAN NAJERA MD Report #: [id number] Location: ER Room/Bed: Procedure: [id number] DX/CHEST SINGLE (PORTABLE) Exam Date: 03/11/20 Exam Time: 1742 REPORT STATUS: Signed EXAMINATION: CHEST SINGLE (PORTABLE) INDICATION:LE EDEMA COMPARISON: Multiple prior chest x- ray examinations most recent dated 01/09/2020. FINDINGS: AP view TUBES and LINES: Left PICC line removed.. . LUNGS/PLEURA: Lungs are well inflated. There are very mild bilateral interstitial opacities likely representing pulmonary edema.. There is no pleural effusion or pneumothorax. HEART AND MEDIASTINUM: The cardiomediastinal silhouette is unremarkable. BONES AND SOFT TISSUES: No acute osseous lesion. Soft tissues are unremarkable. UPPER ABDOMEN: No free air under the diaphragm. IMPRESSION: Unchanged very mild bilateral interstitial opacities likely representing very mild pulmonary edema.. Signed by: Ho Silva MD on 03/11/2020 6:34 PM Dictated By: HO SILVA MD 33 Transcribed By: BRENDON on 03/11/201833 COPY TO: ALAN NAJERA MD Blood leukocytes automated count (number/volume) 2020-03-03 01:30:00 Test Item White Blood Count (test code = 6690-2) 13.02 10*3/uL 4.8-10.8 [facility] automated count (number/volume)2020-03-03 01:30:00* Test Item Value Reference Range Interpretation Comments Red Blood Count (test code = 789-8) 4.20 10*6/mL 3.6-5.1 [facility] hemoglobin measurement (moles/volume)2020-03-03 01:30:00* Test Item Value Reference Range Interpretation Comments Hemoglobin (test code = 48760-7) 14.2 g/dL 12.0-16.0 [facility] HospitalAutomated blood hematocrit (volume fraction)2020-03-03 01:30:00* Test Item Value Reference Range Interpretation Comments Hematocrit (test code = 4544-3) 42.6 % 34.2-44.1 [facility] HospitalAutomated erythrocyte mean corpuscular zznkcr2548-84-23 01:30:00* Test Item Value Reference Range Interpretation Comments Mean Corpuscular Volume (test code = 787-2) 101.4 81-99 [facility] HospitalAutom[facility] erythrocyte mean corpuscular hemoglobin (mass per erythrocyte)2020-03-03 01:30:00* Test Item Value Reference Range Interpretation Comments Mean Corpuscular Hemoglobin (test code = 785-6) 33.8 pg 28-32 [facility] HospitalAutom[facility] erythrocyte mean corpuscular hemoglobin concentration measurement (mass/volume)2020-03-03 01:30:00* Test Item Value Reference Range Interpretation Comments Mean Corpuscular Hemoglobin Concent (test code = 786-4) 33.3 g/dL 31-35 [facility] HospitalRDW YsiCk-Szz2635-13-16 01:30:00* Test Item Value Reference Range Interpretation Comments Red Cell Distribution Width (test code = 32722-3) 13.6 % 11.7 -14.4 [facility] Hospital[facility] blood platelet count (count/volume)2020-03-03 01:30:00* Test Item Value Reference Range Interpretation Comments Platelet Count (test code = 777-3) 380 10*3/uL 140-360 [facility] HospitalAutomated blood segmented neutrophil count as percentage of total uppnwxuaxb5435-04-61 01:30:00* Test Item Value Reference Range Interpretation Comments Neutrophils (%) (Auto) (test code = 87908-2) 63.1 % 38.7-80.0 [facility] HospitalAutomated blood lymphocyte count as percentage ot total vpcbruxkdj6599-51-31 01:30:00* Test Item Value Reference Range Interpretation Comments Lymphocytes (%) (Auto) (test code = 736-9) 25.4 % 18.0-39.1 [facility] HospitalAutomated blood monocyte count as percentage of total uasssagiue9477-97-03 01:30:00* Test Item Value Reference Range Interpretation Comments Monocytes (%) (Auto) (test code = 5905-5) 6.1 % 4.4-11.3 [facility] HospitalAutom[facility] blood eosinophil count as percentage of total halpkzrakz6485-67-00 01:30:00* Test Item Value Reference Range Interpretation Comments Eosinophils (%) (Auto) (test code = 713-8) 0.5 % 0.0-6.0 [facility] HospitalAutomated blood basophil count as percentage of total nmcsrfihgu9815-26-49 01:30:00* Test Item Value Reference Range Interpretation Comments Basophils (%) (Auto) (test code = 706-2) 0.8 % 0.0-1.0 [facility] HospitalFluoroscopic procedure less than one hour rfgzaghc5411-63-46 01:30:00* Test Item Value Reference Range Interpretation Comments IM GRANULOCYTES % (test code = IM GRANULOCYTES %) 4.1 % 0.0- 1.0 [facility] HospitalAutom[facility] blood neutrophil count 2020-03-03 01:30:00* Test Item Value Reference Range Interpretation Comments Neutrophils # (Auto) (test code = 751-8) 8.2 2.1-6.9 [facility] HospitalBlood lymphocytes count (number/volume) 2020-03-03 01:30:00* Test Item Value Reference Range Interpretation Comments Lymphocytes # (Auto) (test code = 00767-9) 3.3 1.0-3.2 [facility] HospitalBl[facility] monocytes automated count (number/volume)2020-03-03 01:30:00* Test Item Value Reference Range Interpretation Comments Monocytes # (Auto) (test code = 742-7) 0.8 0.2-0.8 [facility] HospitalAutomated blood eosinophil count 2020-03-03 01:30:00* Test Item Value Reference Range Interpretation Comments Eosinophils # (Auto) (test code = 711-2) 0.1 0.0-0.4 [facility] HospitalAutomated blood basophil count (count/volume)2020-03-03 01:30:00* Test Item Value Reference Range Interpretation Comments Basophils # (Auto) (test code = 704-7) 0.1 0.0-0.1 [facility] HospitalFluoroscopic procedure less than one hour dxjltuqy3323-00-40 01:30:00* Test Item Value Reference Range Interpretation Comments Absolute Immature Granulocyte (auto (anita t code = Absolute Immature Granulocyte (auto) 0.54 10*3/uL 0-0.1 [facility] sodium measurement (moles/volume)2020-03-03 01:30:00* Test Item Value Reference Range Interpretation Comments Sodium Level (test code = 2951-2) 139 mmol/L 136-145 [facility] potassium measurement (moles/volume)2020-03-03 01:30:00* Test Item Value Reference Range Interpretation Comments Potassium Level (test code = 2823-3) 3.9 mmol/L 3.5-5.1 [facility] chloride measurement (moles/volume)2020-03-03 01:30:00* Test Item Value Reference Range Interpretation Comments Chloride Level (test code = 2075-0) 103 mmol/L 98-107 [facility] carbon dioxide, total measurement (moles/volume)2020-03-03 01:30:00* Test Item Value Reference Range Interpretation Comments Carbon Dioxide Level (test code = 2028-9) 24 mmol/L 22- [facility] anion new8433-81-59 01:30:00* Test Item Value Reference Range Interpretation Comments Anion Gap (test code = 44854-2) 15.9 mmol/L 8- [facility] urea nitrogen measurement (mass/volume)2020-03-03 01:30:00* Test Item Value Reference Range Interpretation Comments Blood Urea Nitrogen (test code = 3094-0) 10 mg/dL 7- [facility] creatinine measurement (mass/volume)2020-03-03 01:30:00* Test Item Value Reference Range Interpretation Comments Creatinine (test code = 2160-0) 0.76 mg/dL 0.57-1.11 [facility] urea nitrogen/creatinine mass invse3400-09-42 01:30:00* Test Item Value Reference Range Interpretation Comments BUN/Creatinine Ratio (test code = 3097-3) 13 6-25 [facility] HospitalEstimated glomerular filtration rate (GFR) oydzukijphnwh9942-03-76 01:30:00* Test Item Value Reference Range Interpretation Comments Estimat Glomerular Filtration Rate (test code = 046277923) > 60 mL/ min >60 Ranges were taken from the National Kidney Disease Education Program and the [employer] literature.Reference ranges:60 or greater: Tfresc90-71 ( for 3 consecutive months): Chronic kidney disease 15 or less: Kidney failureMemorial Hermann Southeast HospitalGlucose efwpwlvfibj0708-94-38 01:30:00* Test Item Value Reference Range Interpretation Comments Glucose Level (test code = AVJ4279) 233 mg/dL 74-118 [facility] calcium measurement (mass/volume)2020-03-03 01:30:00* Test Item Value Reference Range Interpretation Comments Calcium Level (test code = 65865-9) 9.2 mg/dL 8.4-10.2 [facility] total bilirubin measurement (mass/volume)2020-03-03 01:30:00* Test Item Value Reference Range Interpretation Comments Total Bilirubin (test code = 1975-2) 0.2 mg/dL 0.2-1.2 [facility] HospitalFluoroscopic procedure less than one hour wlucguxb9200-46-75 01:30:00* Test Item Value Reference Range Interpretation Comments Aspartate Amino Transf (AST/SGOT) (test code = Aspartate Amino Transf (AST/SGOT)) 79 [IU]/L 5-34 [facility] plasma alanine aminotransferase measurement (enzymatic activity/volume)2020-03-03 01:30:00* Test Item Value Reference Range Interpretation Comments Alanine Aminotransferase (ALT/SGPT) (test code = 1742-6) 84 [IU]/L 0-55 [facility] protein measurement (mass/volume)2020-03-03 01:30:00* Test Item Value Reference Range Interpretation Comments Total Protein (test code = 2885-2) 6.8 g/dL 6.5-8.1 [facility] albumin measurement (mass/volume)2020-03-03 01:30:00* Test Item Value Reference Range Interpretation Comments Albumin (test code = 1751-7) 3.2 g/dL 3.5-5.0 [facility] HospitalPlasma globulin measurement (mass/volume) 2020-03-03 01:30:00* Test Item Value Reference Range Interpretation Comments Globulin (test code = 33960-1) 3.6 g/dL 2.3-3.5 [facility] albumin/globulin mass jixdf2404-27-74 01:30:00* Test Item Value Reference Range Interpretation Comments Albumin/Globulin Ratio (test code = 1759-0) 0.9 0.8-2.0 [facility] alkaline phosphatase measurement (enzymatic activity/volume)2020-03-03 01:30:00* Test Item Value Reference Range Interpretation Comments Alkaline Phosphatase (test code = 6768-6) 135 [IU]/L 40-150 [facility] HospitalBlood qtisovv8153-24-75 01:30:00* Test Item Value Reference Range Interpretation Comments Blood Culture (test code = 58698862) NO GROWTH AFTER 24 HOURS [facility] HospitalCapillary blood glucose measurement by glucometer (mass/volume)2020-01-17 20:21:00* Test Item Value Reference Range Interpretation Comments Bedside Glucose (test code = 67484-0) 258 70-120 Meter ID: [id number] Hermann Southeast HospitalCapillary blood glucose measurement by glucometer (mass/volume)2020-01-17 12:17:00* Test Item Value Reference Range Interpretation Comments Bedside Glucose (test code = 45372-1) 133 mg/dL 70-120 Meter ID: [id number] Hermann Southeast HospitalBlood platelets count by estimate (number/volume)2020-01-16 07:47:00* Test Item Value Reference Range Interpretation Comments Platelet Estimate (test code = 61923-0) ADEQUATE [facility] HospitalPlatelet gvbazhtspm8339-67-97 07:47:00* Test Item Value Reference Range Interpretation Comments Platelet Morphology Comment (test code = 53955-5) RARE EDTA CLUMPIN G [facility] HospitalRBC duxpbutzmo0150-05-30 07:47:00* Test Item Value Reference Range Interpretation Comments Red Cell Morphology Comment (test code = 6742-1) NORMAL [facility] magnesium measurement (mass/volume)2020-01-16 07:00:00* Test Item Value Reference Range Interpretation Comments Magnesium Level (test code = 54020-9) 1.8 mg/dL 1.3-2.1 [facility] HospitalBlood leukocytes automated count (number/volume)2020-01-16 06:47:00* Test Item Value Reference Range Interpretation Comments White Blood Count (test code = 6690-2) 16.68 4.8-10.8 [facility] HospitalBlood erythrocytes automated count (number/volume)2020-01-16 06:47:00* Test Item Value Reference Range Interpretation Comments Red Blood Count (test code = 789-8) 3.72 3.6-5.1 [facility] hemoglobin measurement (moles/volume)2020-01-16 06:47:00* Test Item Value Reference Range Interpretation Comments Hemoglobin (test code = 34158-5) 12.6 12.0-16.0 [facility] HospitalAutomated blood hematocrit (volume fraction)2020-01-16 06:47:00* Test Item Value Reference Range Interpretation Comments Hematocrit (test code = 4544-3) 38.2 34.2-44.1 [facility] HospitalAutomated erythrocyte mean corpuscular idxdsr6773-77-55 06:47:00* Test Item Value Reference Range Interpretation Comments Mean Corpuscular Volume (test code = 787-2) 102.7 81-99 [facility] HospitalAutomated erythrocyte mean corpuscular hemoglobin (mass per erythrocyte)2020-01-16 06:47:00* Test Item Value Reference Range Interpretation Comments Mean Corpuscular Hemoglobin (test code = 785-6) 33.9 28-32 [facility] HospitalAutomated erythrocyte mean corpuscular hemoglobin concentration measurement (mass/volume)2020-01-16 06:47:00* Test Item Value Reference Range Interpretation Comments Mean Corpuscular Hemoglobin Concent (test code = 786-4) 33.0 31-35 [facility] HospitalRDW UnvGs-Ydk5126-87-30 06:47:00* Test Item Value Reference Range Interpretation Comments Red Cell Distribution Width (test code = 21644-2) 13.8 11.7 -14.4 [facility] HospitalAutomated blood platelet count (count/volume)2020-01-16 06:47:00* Test Item Value Reference Range Interpretation Comments Platelet Count (test code = 777-3) 237 140-360 [facility] HospitalAutcape fear [facility] hospitaled blood segmented neutrophil count as percentage of total svhngpnzyx1629-16-29 06:47:00* Test Item Value Reference Range Interpretation Comments Neutrophils (%) (Auto) (test code = 84135-5) 70.7 38.7-80.0 [facility] HospitalAutomated blood lymphocyte count as percentage ot total tuqgdewpox5817-40-94 06:47:00* Test Item Value Reference Range Interpretation Comments Lymphocytes (%) (Auto) (test code = 736-9) 17.2 18.0-39.1 [facility] HospitalAutomated blood monocyte count as percentage of total oytkfbnwbm1356-00-85 06:47:00* Test Item Value Reference Range Interpretation Comments Monocytes (%) (Auto) (test code = 5905-5) 6.6 4.4-11.3 [facility] HospitalAutomated blood eosinophil count as percentage of total fwwiymmrcz9348-84-81 06:47:00* Test Item Value Reference Range Interpretation Comments Eosinophils (%) (Auto) (test code = 713-8) 0.5 0.0-6.0 [facility] HospitalAutomated blood basophil count as percentage of total mkgbsesgpw1991-39-09 06:47:00* Test Item Value Reference Range Interpretation Comments Basophils (%) (Auto) (test code = 706-2) 0.6 0.0-1.0 [facility] HospitalFluoroscopic procedure less than one hour bczcewjc6758-94-50 06:47:00* Test Item Value Reference Range Interpretation Comments IM GRANULOCYTES % (test code = IM GRANULOCYTES %) 4.4 0.0- 1.0 [facility] HospitalAutomated blood neutrophil count 2020-01-16 06:47:00* Test Item Value Reference Range Interpretation Comments Neutrophils # (Auto) (test code = 751-8) 11.8 2.1-6.9 [facility] HospitalBlood lymphocytes count (number/volume) 2020-01-16 06:47:00* Test Item Value Reference Range Interpretation Comments Lymphocytes # (Auto) (test code = 17977-1) 2.9 1.0-3.2 [facility] HospitalBlred [facility] monocytes automated count (number/volume)2020-01-16 06:47:00* Test Item Value Reference Range Interpretation Comments Monocytes # (Auto) (test code = 742-7) 1.1 0.2-0.8 [facility] HospitalAutomated blood eosinophil count 2020-01-16 06:47:00* Test Item Value Reference Range Interpretation Comments Eosinophils # (Auto) (test code = 711-2) 0.1 0.0-0.4 [facility] HospitalAutomated blood basophil count (count/volume)2020-01-16 06:47:00* Test Item Value Reference Range Interpretation Comments Basophils # (Auto) (test code = 704-7) 0.1 0.0-0.1 [facility] HospitalFluoroscopic procedure less than one hour ybscqwsr4797-85-22 06:47:00* Test Item Value Reference Range Interpretation Comments Absolute Immature Granulocyte (auto (anita t code = Absolute Immature Granulocyte (auto) 0.74 0-0.1 [facility] HospitalBlood platelets count by estimate (number/volume)2020-01-16 06:47:00* Test Item Value Reference Range Interpretation Comments Platelet Estimate (test code = 70905-8) ADEQUATE [facility] HospitalPlatelet tzrdgpfcsj8056-94-51 06:47:00* Test Item Value Reference Range Interpretation Comments Platelet Morphology Comment (test code = 89987-2) RARE EDTA CLUMPIN G [facility] HospitalRBC jxnjmxosmg4240-42-95 06:47:00* Test Item Value Reference Range Interpretation Comments Red Cell Morphology Comment (test code = 6742-1) [facility] sodium measurement (moles/volume)2020-01-16 06:00:00* Test Item Value Reference Range Interpretation Comments Sodium Level (test code = 2951-2) 138 136-145 [facility] potassium measurement (moles/volume)2020-01-16 06:00:00* Test Item Value Reference Range Interpretation Comments Potassium Level (test code = 2823-3) 3.5 3.5-5.1 [facility] chloride measurement (moles/volume)2020-01-16 06:00:00* Test Item Value Reference Range Interpretation Comments Chloride Level (test code = 2075-0) 100 98-107 [facility] plasma carbon dioxide, total measurement (moles/volume)2020-01-16 06:00:00* Test Item Value Reference Range Interpretation Comments Carbon Dioxide Level (test code = 2028-9) 26 22-29 [facility] or plasma anion nhx3771-61-68 06:00:00* Test Item Value Reference Range Interpretation Comments Anion Gap (test code = 69659-3) 15.5 8-16 [facility] urea nitrogen measurement (mass/volume)2020-01-16 06:00:00* Test Item Value Reference Range Interpretation Comments Blood Urea Nitrogen (test code = 3094-0) 18 7-26 [facility] creatinine measurement (mass/volume)2020-01-16 06:00:00* Test Item Value Reference Range Interpretation Comments Creatinine (test code = 2160-0) 0.91 0.57-1.11 [facility] plasma urea nitrogen/creatinine mass fqozd4022-16-68 06:00:00* Test Item Value Reference Range Interpretation Comments BUN/Creatinine Ratio (test code = 3097-3) 20 6-25 [facility] HospitalEstimated glomerular filtration rate (GFR) jhpymgeelyrgk5372-63-88 06:00:00* Test Item Value Reference Range Interpretation Comments Estimat Glomerular Filtration Rate (test code = 053555688) > 60 >60 Ranges were taken from the National Kidney Disease Education Program and the [facility] Kidney Foundation literature.Reference ranges:60 or greater: Ianipy49-12 ( for 3 consecutive months): Chronic kidney disease 15 or less: Kidney failureMemorial Hermann Southeast HospitalGlucose yfsssorerov9825-25-61 06:00:00* Test Item Value Reference Range Interpretation Comments Glucose Level (test code = COW2427) 265 74-118 [facility] calcium measurement (mass/volume)2020-01-16 06:00:00* Test Item Value Reference Range Interpretation Comments Calcium Level (test code = 79387-3) 8.5 8.4-10.2 [facility] magnesium measurement (mass/volume)2020-01-16 06:00:00* Test Item Value Reference Range Interpretation Comments Magnesium Level (test code = 96616-6) 1.8 1.3-2.1 [facility] plasma total bilirubin measurement (mass/volume)2020-01-16 06:00:00* Test Item Value Reference Range Interpretation Comments Total Bilirubin (test code = 1975-2) 0.4 0.2-1.2 [facility] HospitalFluoroscopic procedure less than one hour vmsndhgi1213-73-62 06:00:00* Test Item Value Reference Range Interpretation Comments Aspartate Amino Transf (AST/SGOT) (test code = Aspartate Amino Transf (AST/SGOT)) 68 5-34 [facility]ere[facility] or plasma alanine aminotransferase measurement (enzymatic activity/volume)2020-01-16 06:00:00* Test Item Value Reference Range Interpretation Comments Alanine Aminotransferase (ALT/SGPT) (test code = 1742-6) 145 0-55 [facility] plasma protein measurement (mass/volume)2020-01-16 06:00:00* Test Item Value Reference Range Interpretation Comments Total Protein (test code = 2885-2) 5.9 6.5-8.1 [facility] albumin measurement (mass/volume)2020-01-16 06:00:00* Test Item Value Reference Range Interpretation Comments Albumin (test code = 1751-7) 3.5 3.5-5.0 [facility] HospitalPlasma globulin measurement (mass/volume) 2020-01-16 06:00:00* Test Item Value Reference Range Interpretation Comments Globulin (test code = 75559-7) 2.4 2.3-3.5 [facility] albumin/globulin mass djklx0324-13-35 06:00:00* Test Item Value Reference Range Interpretation Comments Albumin/Globulin Ratio (test code = 1759-0) 1.5 0.8-2.0 [facility] plasma alkaline phosphatase measurement (enzymatic activity/volume)2020-01-16 06:00:00* Test Item Value Reference Range Interpretation Comments Alkaline Phosphatase (test code = 6768-6) 118 40-150 [facility] VX5527-37-94 11:10:00 [facility] [address] [address] Patient Name: ROSA ISELA BENITEZ MR #: [id number] : 1970 Age/Sex: 49/F Req #: [id number] Adm Physician: PARMINDER NARVAEZ MD Ordered by: PARMINDER NARVAEZ MD Report #: [id number] Location: MED/SURG3 Room/Bed: [facility] Procedure: [id number] CT/CT RIGH T LOWER EXTREMITY WO Exam [...] ctronically Signed By: ZURI OTTO MD on 01/14/201114 Transcribed By: COM GONZALEZ on 01/14/201114 COPY TO: PARMINDER NARVAEZ MD Blood macrocytes detection by light ownmkearwf8704-50-26 06:37:00* Test Item Value Reference Range Interpretation Comments Macrocytosis (test code = 738-5) SLIGHT [facility] HospitalBlood macrocytes detection by light ebcsiqipah3552-07-26 05:37:00* Test Item Value Reference Range Interpretation Comments Macrocytosis (test code = 738-5) SLIGHT [facility] HospitalCHEST XRAY LINE TOUDZDTJH6844-37-53 15:06:00 [facility] [address] [address] Patient Name: ROSA ISELA BENITEZ MR #: [id number] : 1970 Age/Sex: 49/F Req #: [id number] [facility] Physician: PARMINDER NARVAEZ MD Ordered by: PARMINDER NARVAEZ MD Report #: [id number] Location: [facility] Room/Bed: [facility] Procedure: [id number] DX/CHEST X RAY LINE PLACEMENT Exam Date: 01/09/20 Exam Time: 14 25 REPORT STATUS: Signed EXAMINA TION: CHEST XRAY [...] 3:06 PM Dictated By: DIPAK TALBOT MD 05 Transcribed By: BRENDON on 01/09/201505 COPY TO: PARMINDER NARVAEZ MD Fluoroscopic procedure less than one hour abmfzliu2008-81-63 09:20:00* Test Item Value Reference Range Interpretation Comments Lactic Acid Level (test code = Lactic Acid Level) 1.6 mmol/L 0.5- 2.0 [facility] HospitalFluoroscopic procedure less than one hour cnrxkyjs4662-46-58 08:20:00* Test Item Value Reference Range Interpretation Comments Lactic Acid Level (test code = Lactic Acid Level) 1.6 0.5- 2.0 [facility] HospitalFluoroscopic procedure less than one hour sisauske3178-60-61 05:50:00* Test Item Value Reference Range Interpretation Comments Coronavirus (PCR) (test code = Coronavirus (PCR)) NOT DETECTED NOTD ETECTED SARS-CoV-2 PCRHologic Aptima SARS-CoV-2 assay is a nucleic amplification test in tended for the qualitative detection of RNA from SARS-CoV-2 from nasopharyngeal (HEAD OF GEOGRAPHY) specimens. It is used under Emergency Use [...] repr at testing oc clinically indicated.Tesing performed by:[facility] Laboratory Services3 [facility] [id number], Funmilayo mata MD, PhDMemorial Hermann [facility] HospitalFluoroscopic procedure less than one hour erfobscx5025-66-36 04:50:00* Test Item Value Reference Range Interpretation Comments Coronavirus (PCR) (test code = Coronavirus (PCR)) NOT DETECTED NOTD ETECTED SARS-CoV-2 PCRHologic Aptima SARS-CoV-2 assay is a nucleic amplification test in tended for the qualitative detection of RNA from SARS-CoV-2 from nasopharyngeal (HEAD OF GEOGRAPHY) specimens. It is used under Emergency Use [...] repr at testing oc clinically indicated.Tesing performed by:[facility] Laboratory Services[address] [place] [id number], Funmilayo mata MD, PhDMemorial Hermann Southeast HospitalUrine color determination 2020-01-04 03:35:00* Test Item Value Reference Range Interpretation Comments Urine Color (test code = 5778-6) YELLOW YELLOW [facility] HospitalUrine ssergbu9451-73-12 03:35:00* Test Item Value Reference Range Interpretation Comments Urine Clarity (test code = 08836-1) CLEAR [facility]AR [facility] gravity of Urine by Test strip 2020-01-04 03:35:00* Test Item Value Reference Range Interpretation Comments Urine Specific [place] (test code = 5811-5) 1.020 1.010-1.02 5 [facility] HospitalUrine pH measurement by automated test dyvuq8521-80-31 03:35:00* Test Item Value Reference Range Interpretation Comments Urine pH (test code = 40091-7) 5.5 5-7 [facility] HospitalUrine leukocyte esterase detection by ebuxgvhp4865-58-16 03:35:00* Test Item Value Reference Range Interpretation Comments Urine Leukocyte Esterase (test code = 5799-2) NEGATIVE NEGATIVE [facility] HospitalUrine nitrite rfempljjy6938-81-09 03:35:00* Test Item Value Reference Range Interpretation Comments Urine Nitrite (test code = 01271-2) NEGATIVE NEGATIVE [facility] HospitalUrine protein measurement by test strip (mass/volume)2020-01-04 03:35:00* Test Item Value Reference Range Interpretation Comments Urine Protein (test code = 5804-0) NEGATIVE NEGATIVE [facility] HospitalUrine glucose ixybwitub1054-64-12 03:35:00* Test Item Value Reference Range Interpretation Comments Urine Glucose (UA) (test code = 2349-9) 2+ NEGATIVE [facility] HospitalUrine ketones detection by automated test ilzyb5336-89-75 03:35:00* Test Item Value Reference Range Interpretation Comments Urine Ketones (test code = 33608-1) NEGATIVE NEGATIVE [facility] HospitalUrine urobilinogen measurement by test strip (mass/volume)2020-01-04 03:35:00* Test Item Value Reference Range Interpretation Comments Urine Urobilinogen (test code = 53770-5) 0.2 mg/dL 0.2-1 [facility] HospitalUrine total bilirubin measurement (mass/volume)2020-01-04 03:35:00* Test Item Value Reference Range Interpretation Comments Urine Bilirubin (test code = 1978-6) NEGATIVE NEGATIVE [facility] HospitalUrine erythrocytes zruchuahh5088-16-82 03:35:00* Test Item Value Reference Range Interpretation Comments Urine Blood (test code = 99314-8) NEGATIVE NEGATIVE [facility] HospitalAutomated urine sediment leukocyte count by microscopy (number/high power field)2020-01-04 03:35:00* Test Item Value Reference Range Interpretation Comments Urine WBC (test code = 5821-4) 0-5 /[HPF] 0-5 [facility] HospitalErythrocytes detection in urine sediment by light dnkqlvjuck0766-41-24 03:35:00* Test Item Value Reference Range Interpretation Comments Urine RBC (test code = 09472-8) 0-5 /[HPF] 0-5 [facility] HospitalBacteria detection in urine sediment by light jadzgjxrcs8359-66-84 03:35:00* Test Item Value Reference Range Interpretation Comments Urine Bacteria (test code = 31124-7) FEW /[HPF] NONE [facility] HospitalEpithelial cells detection in urine sediment by light yonckbmadk6945-32-95 03:35:00* Test Item Value Reference Range Interpretation Comments Urine Epithelial Cells (test code = 87979-7) FEW /[LPF] NONE [facility] HospitalBlood etxlhqa3890-19-85 02:55:00* Test Item Value Reference Range Interpretation Comments Blood Culture (test code = 70887759) NO GROWTH AFTER 5 DAYS, FINAL REPORT [facility] HospitalUrine color emsqoxxebjqyz7989-01-78 02:35:00* Test Item Value Reference Range Interpretation Comments Urine Color (test code = 5778-6) YELLOW YELLOW [facility] HospitalUrine sxipczr9023-75-53 02:35:00* Test Item Value Reference Range Interpretation Comments Urine Clarity (test code = 98301-5) CLEAR CLEAR [facility] Centerpecific gravity of Urine by Test strip 2020-01-04 02:35:00* Test Item Value Reference Range Interpretation Comments Urine Specific [place] (test code = 5811-5) 1.020 1.010-1.02 5 [facility] HospitalUrine pH measurement by automated test pgehr9528-38-74 02:35:00* Test Item Value Reference Range Interpretation Comments Urine pH (test code = 37405-1) 5.5 5-7 [facility] HospitalUrine leukocyte esterase detection by dtbfioau1141-81-82 02:35:00* Test Item Value Reference Range Interpretation Comments Urine Leukocyte Esterase (test code = 5799-2) NEGATIVE NEGATIVE [facility] HospitalUrine nitrite synmqruxd8178-10-29 02:35:00* Test Item Value Reference Range Interpretation Comments Urine Nitrite (test code = 43689-3) NEGATIVE NEGATIVE [facility] HospitalUrine protein measurement by test strip (mass/volume)2020-01-04 02:35:00* Test Item Value Reference Range Interpretation Comments Urine Protein (test code = 5804-0) NEGATIVE NEGATIVE [facility] HospitalUrine glucose xlregqxwu4336-66-81 02:35:00* Test Item Value Reference Range Interpretation Comments Urine Glucose (UA) (test code = 2349-9) 2+ NEGATIVE [facility] HospitalUrine ketones detection by automated test ljjlx7439-02-85 02:35:00* Test Item Value Reference Range Interpretation Comments Urine Ketones (test code = 75205-7) NEGATIVE NEGATIVE [facility] HospitalUrine urobilinogen measurement by test strip (mass/volume)2020-01-04 02:35:00* Test Item Value Reference Range Interpretation Comments Urine Urobilinogen (test code = 02704-3) 0.2 0.2-1 [facility] HospitalUrine total bilirubin measurement (mass/volume)2020-01-04 02:35:00* Test Item Value Reference Range Interpretation Comments Urine Bilirubin (test code = 1978-6) NEGATIVE NEGATIVE [facility] HospitalUrine erythrocytes llwdyelnl5516-36-32 02:35:00* Test Item Value Reference Range Interpretation Comments Urine Blood (test code = 86524-9) NEGATIVE NEGATIVE [facility] HospitalAutomated urine sediment leukocyte count by microscopy (number/high power field)2020-01-04 02:35:00* Test Item Value Reference Range Interpretation Comments Urine WBC (test code = 5821-4) 0-5 0-5 [facility] HospitalErythrocytes detection in urine sediment by light seszkrdtmt3996-03-44 02:35:00* Test Item Value Reference Range Interpretation Comments Urine RBC (test code = 08174-1) 0-5 0-5 [facility] HospitalBacteria detection in urine sediment by light cabijocfrf8497-92-82 02:35:00* Test Item Value Reference Range Interpretation Comments Urine Bacteria (test code = 66226-4) FEW NONE [facility] HospitalEpithelial cells detection in urine sediment by light grbmgxcukv0831-10-30 02:35:00* Test Item Value Reference Range Interpretation Comments Urine Epithelial Cells (test code = 11953-1) FEW NONE [facility] HospitalCapillary blood glucose measurement by glucometer (mass/volume)2019-10-08 07:07:00* Test Item Value Reference Range Interpretation Comments Bedside Glucose (test code = 96514-0) 181 70-120 Meter ID: [id number] Mountain Medical CenterBlood leukocytes automated count (number/volume)2019-10-07 05:15:00* Test Item Value Reference Range Interpretation Comments White Blood Count (test code = 6690-2) 17.93 4.8-10.8 [facility] HospitalBlood erythrocytes automated count (number/volume)2019-10-07 05:15:00* Test Item Value Reference Range Interpretation Comments Red Blood Count (test code = 789-8) 3.93 3.6-5.1 [facility] hemoglobin measurement (moles/volume)2019-10-07 05:15:00* Test Item Value Reference Range Interpretation Comments Hemoglobin (test code = 94707-0) 12.8 12.0-16.0 [facility] HospitalAutomated blood hematocrit (volume fraction)2019-10-07 05:15:00* Test Item Value Reference Range Interpretation Comments Hematocrit (test code = 4544-3) 38.4 34.2-44.1 [facility] HospitalAutomated erythrocyte mean corpuscular gsqxde7895-61-42 05:15:00* Test Item Value Reference Range Interpretation Comments Mean Corpuscular Volume (test code = 787-2) 97.7 81-99 [facility] HospitalAutomated erythrocyte mean corpuscular hemoglobin (mass per erythrocyte)2019-10-07 05:15:00* Test Item Value Reference Range Interpretation Comments Mean Corpuscular Hemoglobin (test code = 785-6) 32.6 28-32 [facility] HospitalAutomat erythrocyte mean corpuscular hemoglobin concentration measurement (mass/volume)2019-10-07 05:15:00* Test Item Value Reference Range Interpretation Comments Mean Corpuscular Hemoglobin Concent (test code = 786-4) 33.3 31-35 [facility] HospitalRDW NovNo-Fxx0966-18-21 05:15:00* Test Item Value Reference Range Interpretation Comments Red Cell Distribution Width (test code = 13588-2) 13.7 11.7 -14.4 [facility] HospitalAutomated blood platelet count (count/volume)2019-10-07 05:15:00* Test Item Value Reference Range Interpretation Comments Platelet Count (test code = 777-3) 338 140-360 [facility]ed [facility] segmented neutrophil count as percentage of total urdxpnbvqn5932-92-46 05:15:00* Test Item Value Reference Range Interpretation Comments Neutrophils (%) (Auto) (test code = 11934-6) 73.2 38.7-80.0 [facility] HospitalAutomated blood lymphocyte count as percentage ot total qxhjmwqfrt8528-33-59 05:15:00* Test Item Value Reference Range Interpretation Comments Lymphocytes (%) (Auto) (test code = 736-9) 15.6 18.0-39.1 [facility] HospitalAutomated blood monocyte count as percentage of total owyorjlybp1934-42-57 05:15:00* Test Item Value Reference Range Interpretation Comments Monocytes (%) (Auto) (test code = 5905-5) 7.1 4.4-11.3 [facility] HospitalAutomated blood eosinophil count as percentage of total qozkbigufp9687-89-36 05:15:00* Test Item Value Reference Range Interpretation Comments Eosinophils (%) (Auto) (test code = 713-8) 0.3 0.0-6.0 [facility] HospitalAutomated blood basophil count as percentage of total xlmxvqaveh8572-23-81 05:15:00* Test Item Value Reference Range Interpretation Comments Basophils (%) (Auto) (test code = 706-2) 0.6 0.0-1.0 [facility] HospitalFluoroscopic procedure less than one hour uksevlzn9092-75-30 05:15:00* Test Item Value Reference Range Interpretation Comments IM GRANULOCYTES % (test code = IM GRANULOCYTES %) 3.2 0.0- 1.0 [facility] HospitalAutomated blood neutrophil count 2019-10-07 05:15:00* Test Item Value Reference Range Interpretation Comments Neutrophils # (Auto) (test code = 751-8) 13.1 2.1-6.9 [facility] HospitalBlood lymphocytes count (number/volume) 2019-10-07 05:15:00* Test Item Value Reference Range Interpretation Comments Lymphocytes # (Auto) (test code = 92870-3) 2.8 1.0-3.2 [facility] HospitalBlood monocytes automated count (number/volume)2019-10-07 05:15:00* Test Item Value Reference Range Interpretation Comments Monocytes # (Auto) (test code = 742-7) 1.3 0.2-0.8 [facility] HospitalAutomated blood eosinophil count 2019-10-07 05:15:00* Test Item Value Reference Range Interpretation Comments Eosinophils # (Auto) (test code = 711-2) 0.1 0.0-0.4 [facility] HospitalAutomated blood basophil count (count/volume)2019-10-07 05:15:00* Test Item Value Reference Range Interpretation Comments Basophils # (Auto) (test code = 704-7) 0.1 0.0-0.1 [facility] HospitalFluoroscopic procedure less than one hour exwagpcb2699-32-03 05:15:00* Test Item Value Reference Range Interpretation Comments Absolute Immature Granulocyte (auto (anita t code = Absolute Immature Granulocyte (auto) 0.57 0-0.1 [facility] sodium measurement (moles/volume)2019-10-07 05:15:00* Test Item Value Reference Range Interpretation Comments Sodium Level (test code = 2951-2) 136 136-145 [facility] potassium measurement (moles/volume)2019-10-07 05:15:00* Test Item Value Reference Range Interpretation Comments Potassium Level (test code = 2823-3) 4.3 3.5-5.1 [facility] chloride measurement (moles/volume)2019-10-07 05:15:00* Test Item Value Reference Range Interpretation Comments Chloride Level (test code = 2075-0) 101 98-107 [facility] carbon dioxide, total measurement (moles/volume)2019-10-07 05:15:00* Test Item Value Reference Range Interpretation Comments Carbon Dioxide Level (test code = 2028-9) 25 22-29 [facility] anion tjv3613-27-56 05:15:00* Test Item Value Reference Range Interpretation Comments Anion Gap (test code = 28445-2) 14.3 8-16 [facility] plasma urea nitrogen measurement (mass/volume)2019-10-07 05:15:00* Test Item Value Reference Range Interpretation Comments Blood Urea Nitrogen (test code = 3094-0) 22 - [facility] creatinine measurement (mass/volume)2019-10-07 05:15:00* Test Item Value Reference Range Interpretation Comments Creatinine (test code = 2160-0) 0.99 0.57-1.11 [facility] plasma urea nitrogen/creatinine mass ubdzj2209-30-77 05:15:00* Test Item Value Reference Range Interpretation Comments BUN/Creatinine Ratio (test code = 3097-3) 22 - [facility] HospitalEstimated glomerular filtration rate (GFR) reukiqshymnad4587-98-49 05:15:00* Test Item Value Reference Range Interpretation Comments Estimat Glomerular Filtration Rate (test code = 193460596) 60 >60 Ranges were taken from the National Kidney Disease Education Program and the [employer] literature.Reference ranges:60 or greater: Apemqu74-34 ( for 3 consecutive months): Chronic kidney disease 15 or less: Kidney failureMemorial Hermann Southeast HospitalGlucose vxltauwuhii3510-77-31 05:15:00* Test Item Value Reference Range Interpretation Comments Glucose Level (test code = NMY2464) 227 74-118 [facility] calcium measurement (mass/volume)2019-10-07 05:15:00* Test Item Value Reference Range Interpretation Comments Calcium Level (test code = 05167-8) 8.9 8.4-10.2 [facility] HospitalCHEST XRAY LINE XNHVOGECQ9613-42-58 11:27:00 [facility] [address] [address] Patient Name: ROSA ISELA BENITEZ MR #: [id number] : 1970 Age/Sex: 49/F Req #: [id number] Adm Physician: PARMINDER NARVAEZ MD Ordered by: PARMINDER NARVAEZ MD Report #: [id number] Location: MED/SURG2 Room/Bed: [facility] Procedure: [id number] DX/CHEST X RAY LINE PLACEMENT Exam Date: [...] MD 1128 Transc ribed By: BRENDON on 10/05/19 1128 COPY TO: PARMINDER NARVAEZ MD Serum or plasma total bilirubin measurement (mass/volume)2019-10-02 05:00:00* Test Item Value Reference Range Interpretation Comments Total Bilirubin (test code = 1975-2) 0.4 0.2-1.2 [facility] HospitalFluoroscopic procedure less than one hour iscoppdz5114-76-81 05:00:00* Test Item Value Reference Range Interpretation Comments Aspartate Amino Transf (AST/SGOT) (test code = Aspartate Amino Transf (AST/SGOT)) 30 5-34 [facility] or plasma alanine aminotransferase measurement (enzymatic activity/volume)2019-10-02 05:00:00* Test Item Value Reference Range Interpretation Comments Alanine Aminotransferase (ALT/SGPT) (test code = 1742-6) 59 0-55 [facility] protein measurement (mass/volume)2019-10-02 05:00:00* Test Item Value Reference Range Interpretation Comments Total Protein (test code = 2885-2) 6.4 6.5-8.1 [facility] albumin measurement (mass/volume)2019-10-02 05:00:00* Test Item Value Reference Range Interpretation Comments Albumin (test code = 1751-7) 3.0 3.5-5.0 [facility] HospitalPlasma globulin measurement (mass/volume) 2019-10-02 05:00:00* Test Item Value Reference Range Interpretation Comments Globulin (test code = 49069-6) 3.4 2.3-3.5 [facility] plasma albumin/globulin mass jxfed6522-58-20 05:00:00* Test Item Value Reference Range Interpretation Comments Albumin/Globulin Ratio (test code = 1759-0) 0.9 0.8-2.0 [facility] or plasma alkaline phosphatase measurement (enzymatic activity/volume)2019-10-02 05:00:00* Test Item Value Reference Range Interpretation Comments Alkaline Phosphatase (test code = 6768-6) 101 40-150 [facility] HospitalFluoroscopic procedure less than one hour ylaurwcr1960-59-31 09:09:00* Test Item Value Reference Range Interpretation [...] complexity tests.Testing performed by [facility] [address] [place] [address] [phone] Director: Jered Escobedo M.D.CLIA # [id number] [facility] HospitalBlood mlhktja0920-36-96 07:55:00* Test Item Value Reference Range Interpretation Comments Blood Culture (test code = 39074623) NO GROWTH AFTER 5 DAYS, FINAL REPORT [facility] HospitalCT BRAIN SY0242-86-11 06:53:00 [facility] [address] [address] Patient Name: ROSA ISELA BENITEZ MR #: [id number] : 1970 Age/Sex: 49/F Req #: [id number] Adm Physician: PARMINDER NARVAEZ MD Ordered by: FUNMILAYO CALLOWAY MD Report #: [id number] Location: [facility] Room/Bed: [place] [address] Procedure: [id number] CT /CT BRAIN WO Exam Date: 10/01/19 [...] MD Fluoroscopic procedure less than one hour yscjmuvw8353-06-54 06:50:00* Test Item Value Reference Range Interpretation Comments Differential Total Cells Counted (test code = Zain tial Total Cells Counted) 100 [facility] blood neutrophils/100 leukocytes 2019-10-01 06:50:00* Test Item Value Reference Range Interpretation Comments Neutrophils % (Manual) (test code = 22818-4) 70 % 40-74 [facility] blood lymphocytes/100 leukocytes 2019-10-01 06:50:00* Test Item Value Reference Range Interpretation Comments Lymphocytes % (Manual) (test code = 737-7) 20 % 19-48 [facility] blood monocytes/100 leukocytes 2019-10-01 06:50:00* Test Item Value Reference Range Interpretation Comments Monocytes % (Manual) (test code = 744-3) 9 % 3.4-9.0 [facility] blood eosinophil count as percentage of total bhsuyxhvvs0006-68-82 06:50:00* Test Item Value Reference Range Interpretation Comments Eosinophils % (Manual) (test code = 714-6) 1 % 0-7 [facility] HospitalBlood hypochromia detection by light abipokucxq2690-64-67 06:50:00* Test Item Value Reference Range Interpretation Comments Hypochromasia (test code = 728-6) SLIGHT [facility] HospitalYeast detection in urine sediment by light ubwedumhhi2318-82-81 06:50:00* Test Item Value Reference Range Interpretation Comments Urine Yeast (test code = 64611-4) RARE NONE [facility] HospitalFluoroscopic procedure less than one hour ktffhvgs0378-43-45 05:50:00* Test Item Value Reference Range Interpretation Comments Differential Total Cells Counted (test code = Zain crespo Total Cells Counted) 100 [facility] blood neutrophils/100 leukocytes 2019-10-01 05:50:00* Test Item Value Reference Range Interpretation Comments Neutrophils % (Manual) (test code = 94813-8) 70 40-74 [facility] blood lymphocytes/100 leukocytes 2019-10-01 05:50:00* Test Item Value Reference Range Interpretation Comments Lymphocytes % (Manual) (test code = 737-7) 20 19-48 [facility] HospitalManual blood monocytes/100 leukocytes 2019-10-01 05:50:00* Test Item Value Reference Range Interpretation Comments Monocytes % (Manual) (test code = 744-3) 9 3.4-9.0 [facility] HospitalManual blood eosinophil count as percentage of total mcktcoiyyc4957-93-96 05:50:00* Test Item Value Reference Range Interpretation Comments Eosinophils % (Manual) (test code = 714-6) 1 0-7 [facility] HospitalBlood platelets count by estimate (number/volume)2019-10-01 05:50:00* Test Item Value Reference Range Interpretation Comments Platelet Estimate (test code = 73305-0) ADEQUATE [facility] HospitalPlatelet nvqcbguqtc0591-11-78 05:50:00* Test Item Value Reference Range Interpretation Comments Platelet Morphology Comment (test code = 97651-6) NORMAL [facility] HospitalBlood hypochromia detection by light afaaeldntx3540-41-73 05:50:00* Test Item Value Reference Range Interpretation Comments Hypochromasia (test code = 728-6) SLIGHT [facility] HospitalRBC qjfcioxpme6356-07-37 05:50:00* Test Item Value Reference Range Interpretation Comments Red Cell Morphology Comment (test code = 6742-1) NORMAL [facility] HospitalUrine color abakivlfibtmv0947-61-21 05:50:00* Test Item Value Reference Range Interpretation Comments Urine Color (test code = 5778-6) YELLOW YELLOW [facility] HospitalUrine fswgihj5178-81-23 05:50:00* Test Item Value Reference Range Interpretation Comments Urine Clarity (test code = 16971-9) CLEAR CLEAR [facility] Centerpecific gravity of Urine by Test strip 2019-10-01 05:50:00* Test Item Value Reference Range Interpretation Comments Urine Specific [place] (test code = 5811-5) 1.020 1.010-1.02 5 [facility] HospitalUrine pH measurement by automated test oygrq1192-41-19 05:50:00* Test Item Value Reference Range Interpretation Comments Urine pH (test code = 93569-6) 6 5-7 [facility] HospitalUrine leukocyte esterase detection by uirvfunt4803-34-76 05:50:00* Test Item Value Reference Range Interpretation Comments Urine Leukocyte Esterase (test code = 5799-2) NEGATIVE NEGATIVE [facility] HospitalUrine nitrite zsnmdlohd3061-32-47 05:50:00* Test Item Value Reference Range Interpretation Comments Urine Nitrite (test code = 83951-2) NEGATIVE NEGATIVE [facility] HospitalUrine protein measurement by test strip (mass/volume)2019-10-01 05:50:00* Test Item Value Reference Range Interpretation Comments Urine Protein (test code = 5804-0) NEGATIVE NEGATIVE [facility] HospitalUrine glucose numxrdarc2029-57-27 05:50:00* Test Item Value Reference Range Interpretation Comments Urine Glucose (UA) (test code = 2349-9) NEGATIVE NEGATIVE [facility] HospitalUrine ketones detection by automated test xvsld1737-80-75 05:50:00* Test Item Value Reference Range Interpretation Comments Urine Ketones (test code = 46052-3) NEGATIVE NEGATIVE [facility] HospitalUrine urobilinogen measurement by test strip (mass/volume)2019-10-01 05:50:00* Test Item Value Reference Range Interpretation Comments Urine Urobilinogen (test code = 58581-0) 0.2 0.2-1 [facility] HospitalUrine total bilirubin measurement (mass/volume)2019-10-01 05:50:00* Test Item Value Reference Range Interpretation Comments Urine Bilirubin (test code = 1978-6) NEGATIVE NEGATIVE [facility] HospitalUrine erythrocytes innysvwdh1975-96-05 05:50:00* Test Item Value Reference Range Interpretation Comments Urine Blood (test code = 46440-0) TRACE NEGATIVE [facility] HospitalAutomated urine sediment leukocyte count by microscopy (number/high power field)2019-10-01 05:50:00* Test Item Value Reference Range Interpretation Comments Urine WBC (test code = 5821-4) 0-5 0-5 [facility] HospitalErythrocytes detection in urine sediment by light rcuromafnx4402-46-15 05:50:00* Test Item Value Reference Range Interpretation Comments Urine RBC (test code = 08113-2) 0-5 0-5 [facility] HospitalBacteria detection in urine sediment by light ddoeakxane7456-58-24 05:50:00* Test Item Value Reference Range Interpretation Comments Urine Bacteria (test code = 03356-4) FEW NONE [facility] HospitalEpithelial cells detection in urine sediment by light gytwchcmea7878-38-73 05:50:00* Test Item Value Reference Range Interpretation Comments Urine Epithelial Cells (test code = 89394-0) FEW NONE [facility] HospitalYeast detection in urine sediment by light zcdtmnixbx5938-11-10 05:50:00* Test Item Value Reference Range Interpretation Comments Urine Yeast (test code = 11718-3) RARE NONE [facility] HospitalFluoroscopic procedure less than one hour ypzybbne5356-41-63 05:50:00* Test Item Value Reference Range Interpretation Comments Differential Total Cells Counted (test code = Differgeoff tial Total Cells Counted) 100 [facility] blood neutrophils/100 leukocytes 2019-10-01 05:50:00* Test Item Value Reference Range Interpretation Comments Neutrophils % (Manual) (test code = 78765-4) 70 40-74 [facility] blood lymphocytes/100 leukocytes 2019-10-01 05:50:00* Test Item Value Reference Range Interpretation Comments Lymphocytes % (Manual) (test code = 737-7) 20 19-48 [facility] blood monocytes/100 leukocytes 2019-10-01 05:50:00* Test Item Value Reference Range Interpretation Comments Monocytes % (Manual) (test code = 744-3) 9 3.4-9.0 [facility] blood eosinophil count as percentage of total mytqjazujt8611-37-15 05:50:00* Test Item Value Reference Range Interpretation Comments Eosinophils % (Manual) (test code = 714-6) 1 0-7 [facility] HospitalBlood hypochromia detection by light svpawmydmv1205-62-36 05:50:00* Test Item Value Reference Range Interpretation Comments Hypochromasia (test code = 728-6) SLIGHT [facility] HospitalYeast detection in urine sediment by light qcgaxfillc7298-76-81 05:50:00* Test Item Value Reference Range Interpretation Comments Urine Yeast (test code = 86180-4) RARE NONE [facility] HospitalBedside Siqqcxw8603-05-90 08:11:00* Test Item Value Reference Range Interpretation Comments Bedside Glucose (test code = 47741-6) 147 70-120 H Meter ID: [id number] Mountain Medical CenterPlatelet Morphology Uzcnjfw7802-56-53 08:00:00* Test Item Value Reference Range Interpretation Comments Platelet Morphology Comment (test code = 80384-5) NO EDTA PLT CLUMP S SEEN [facility] Centerodium Afnqd2619-91-95 07:25:00* Test Item Value Reference Range Interpretation Comments Sodium Level (test code = 2951-2) 139 136-145 [facility] HospitalPotassium Fpxys6830-78-18 07:25:00* Test Item Value Reference Range Interpretation Comments Potassium Level (test code = 2823-3) 4.3 3.5-5.1 [facility] HospitalChloride Gccrm4108-73-73 07:25:00* Test Item Value Reference Range Interpretation Comments Chloride Level (test code = 2075-0) 108 98-107 H [facility] HospitalCarbon Dioxide Isfbe2999-47-35 07:25:00* Test Item Value Reference Range Interpretation Comments Carbon Dioxide Level (test code = 2028-9) 21 22-29 L [facility] HospitalAnion Fkq2415-68-14 07:25:00* Test Item Value Reference Range Interpretation Comments Anion Gap (test code = 65283-5) 14.3 8-16 [facility] HospitalBlood Urea Psvjdzyf3085-63-80 07:25:00* Test Item Value Reference Range Interpretation Comments Blood Urea Nitrogen (test code = 3094-0) 8 7-26 [facility] HospitalCreatinine2019-11-09 07:25:00* Test Item Value Reference Range Interpretation Comments Creatinine (test code = 2160-0) 0.67 0.57-1.11 [facility] HospitalBUN/Creatinine Ttvjt2115-76-27 07:25:00* Test Item Value Reference Range Interpretation Comments BUN/Creatinine Ratio (test code = 3097-3) 12 6-25 [facility] HospitalEstimat Glomerular Filtration Rate 2019-02-24 07:25:00* Test Item Value Reference Range Interpretation Comments Estimat Glomerular Filtration Rate (test code = 226360020) > 60 >60 Ranges were taken from the National Kidney Disease Education Program and the [facility] Kidney Foundation literature.Reference ranges:60 or greater: Uqtauy97-47 ( for 3 consecutive months): Chronic kidney disease 15 or less: Kidney failureCHI [facility] HospitalGlucose Gkckx8092-14-36 07:25:00* Test Item Value Reference Range Interpretation Comments Glucose Level (test code = DQJ7438) 174 74-118 H [facility] HospitalCalcium Cfzgz2200-48-09 07:25:00* Test Item Value Reference Range Interpretation Comments Calcium Level (test code = 81239-7) 9.0 8.4-10.2 [facility] HospitalMagnesium Wsaus4223-77-13 07:25:00* Test Item Value Reference Range Interpretation Comments Magnesium Level (test code = 81473-4) 1.8 1.3-2.1 [facility] HospitalTotal Bmflxjlpl0707-40-38 07:25:00* Test Item Value Reference Range Interpretation Comments Total Bilirubin (test code = 1975-2) 0.4 0.2-1.2 [facility] HospitalAspartate Amino Transf (AST/SGOT) 2019-02-24 07:25:00* Test Item Value Reference Range Interpretation Comments Aspartate Amino Transf (AST/SGOT) (test code = Aspartate Amino Transf (AST/SGOT)) 19 5-34 [facility] HospitalAlanine Aminotransferase (ALT/SGPT) 2019-02-24 07:25:00* Test Item Value Reference Range Interpretation Comments Alanine Aminotransferase (ALT/SGPT) (test code = 1742-6) 31 0-55 [facility] HospitalTotal Gxftmps5359-91-67 07:25:00* Test Item Value Reference Range Interpretation Comments Total Protein (test code = 2885-2) 6.1 6.5-8.1 L [facility] HospitalAlbumin2019-11-09 07:25:00* Test Item Value Reference Range Interpretation Comments Albumin (test code = 1751-7) 2.2 3.5-5.0 L [facility] HospitalGlobulin2019-11-09 07:25:00* Test Item Value Reference Range Interpretation Comments Globulin (test code = 24391-5) 3.9 2.3-3.5 H [facility] HospitalAlbumin/Globulin Fozqg5661-06-09 07:25:00 * Test Item Value Reference Range Interpretation Comments Albumin/Globulin Ratio (test code = 1759-0) 0.6 0.8-2.0 L [facility] HospitalAlkaline Owittaqemmx6289-55-76 07:25:00* Test Item Value Reference Range Interpretation Comments Alkaline Phosphatase (test code = 6768-6) 233 40-150 H [facility] HospitalWhite Blood Rumsa1278-19-66 07:13:00* Test Item Value Reference Range Interpretation Comments White Blood Count (test code = 6690-2) 13.13 4.8-10.8 H [facility] HospitalRed Blood Algdp9546-58-55 07:13:00* Test Item Value Reference Range Interpretation Comments Red Blood Count (test code = 789-8) 3.90 3.6-5.1 [facility] HospitalHemoglobin2019-11-09 07:13:00* Test Item Value Reference Range Interpretation Comments Hemoglobin (test code = 25314-1) 12.5 12.0-16.0 [facility] HospitalHematocrit2019-11-09 07:13:00* Test Item Value Reference Range Interpretation Comments Hematocrit (test code = 4544-3) 38.5 34.2-44.1 [facility] HospitalMean Corpuscular Hmvrdq9717-42-51 07:13:00* Test Item Value Reference Range Interpretation Comments Mean Corpuscular Volume (test code = 787-2) 98.7 81-99 [facility] HospitalMean Corpuscular Cozkfqdguc1295-25-74 07:13:00* Test Item Value Reference Range Interpretation Comments Mean Corpuscular Hemoglobin (test code = 785-6) 32.1 28-32 H [facility] HospitalMean Corpuscular Hemoglobin Concent 2019-02-24 07:13:00* Test Item Value Reference Range Interpretation Comments Mean Corpuscular Hemoglobin Concent (test code = 786-4) 32.5 31-35 [facility] HospitalRed Cell Distribution Ccjlt5059-77-90 07:13:00* Test Item Value Reference Range Interpretation Comments Red Cell Distribution Width (test code = 15033-4) 14.8 11.7 -14.4 H [facility] HospitalPlatelet Vsbmw8333-15-99 07:13:00* Test Item Value Reference Range Interpretation Comments Platelet Count (test code = 777-3) 210 140-360 [facility] HospitalNeutrophils (%) (Auto)2019-02-24 07:13:00 * Test Item Value Reference Range Interpretation Comments Neutrophils (%) (Auto) (test code = 08024-9) 73.6 38.7-80.0 [facility] HospitalLymphocytes (%) (Auto)2019-02-24 07:13:00 * Test Item Value Reference Range Interpretation Comments Lymphocytes (%) (Auto) (test code = 736-9) 17.6 18.0-39.1 L [facility] HospitalMonocytes (%) (Auto)2019-02-24 07:13:00* Test Item Value Reference Range Interpretation Comments Monocytes (%) (Auto) (test code = 5905-5) 4.4 4.4-11.3 [facility] HospitalEosinophils (%) (Auto)2019-02-24 07:13:00 * Test Item Value Reference Range Interpretation Comments Eosinophils (%) (Auto) (test code = 713-8) 0.9 0.0-6.0 [facility] HospitalBasophils (%) (Auto)2019-02-24 07:13:00* Test Item Value Reference Range Interpretation Comments Basophils (%) (Auto) (test code = 706-2) 0.5 0.0-1.0 [facility] HospitalIM GRANULOCYTES %2019-02-24 07:13:00* Test Item Value Reference Range Interpretation Comments IM GRANULOCYTES % (test code = IM GRANULOCYTES %) 3.0 0.0- 1.0 H [facility] HospitalNeutrophils # (Auto)2019-02-24 07:13:00* Test Item Value Reference Range Interpretation Comments Neutrophils # (Auto) (test code = 751-8) 9.7 2.1-6.9 H [facility] HospitalLymphocytes # (Auto)2019-02-24 07:13:00* Test Item Value Reference Range Interpretation Comments Lymphocytes # (Auto) (test code = 05528-4) 2.3 1.0-3.2 [facility] HospitalMonocytes # (Auto)2019-02-24 07:13:00* Test Item Value Reference Range Interpretation Comments Monocytes # (Auto) (test code = 742-7) 0.6 0.2-0.8 [facility] HospitalEosinophils # (Auto)2019-02-24 07:13:00* Test Item Value Reference Range Interpretation Comments Eosinophils # (Auto) (test code = 711-2) 0.1 0.0-0.4 [facility] HospitalBasophils # (Auto)2019-02-24 07:13:00* Test Item Value Reference Range Interpretation Comments Basophils # (Auto) (test code = 704-7) 0.1 0.0-0.1 [facility] HospitalAbsolute Immature Granulocyte (auto 2019-02-24 07:13:00* Test Item Value Reference Range Interpretation Comments Absolute Immature Granulocyte (auto (anita t code = Absolute Immature Granulocyte (auto) 0.39 0-0.1 H [facility]ererum or plasma magnesium measurement (mass/volume)2019-02-24 05:30:00* Test Item Value Reference Range Interpretation Comments Magnesium Level (test code = 09707-5) 1.8 1.3-2.1 [facility] HospitalBlood Xrkxdjp0070-05-51 03:54:00* Test Item Value Reference Range Interpretation Comments Blood Culture (test code = 11117582) NO GROWTH AFTER 5 DAYS, FINAL REPORT [facility]IN[facility] (PAR[facility]AL)MIN 5UYWLW2016-54-96 08:50:00 [facility] [address] [address] Patient Name: ROSA ISELA BENITEZ MR #: [id number] : 1970 Age/Sex: 49/F Req #: [id number] Adm Physician: PARMINDER NARVAEZ MD Ordered by: PARMINDER NARVAEZ MD Report #: [id number] Location: [facility]/SURG3 Room/Bed: [facility] Procedure: [id number] DX/SINUSES (PARANASAL)MIN 3VIEWS Exam Date: 02/23/19 Exam Time: 0805 REPORT STATUS: Si gned EXAMINATION: SINUSES (PARANASAL)MIN [...] MD 08 COPY TO: PARMINDER NARVAEZ C-Reactive Nffkgex1347-36-67 21:19:00* Test Item Value Reference Range Interpretation Comments C-Reactive Protein (test code = 1988-5) 589 0-10 H Results confirmed ondilution.Performed at: [facility] [address] [facility], [place], [place] [id number] Director: Prasanna Mishra MD, Phone: [phone] Hermann Southeast HospitalUrine Fdrjmhj1626-68-59 08:02:00* Test Item Value Reference Range Interpretation Comments Urine Culture (test code = 630-4) No Result Data Provided [facility] HospitalErythrocyte Sedimentation Tvbe7839-65-31 09:56:00* Test Item Value Reference Range Interpretation Comments Erythrocyte Sedimentation Rate (test code = 4537-7) 80 0- 20 H [facility] HospitalDifferential Total Cells Counted 2019-02-20 08:47:00* Test Item Value Reference Range Interpretation Comments Differential Total Cells Counted (test code = Differgeoff tial Total Cells Counted) 100 [facility] HospitalNeutrophils % (Manual)2019-02-20 08:47:00 * Test Item Value Reference Range Interpretation Comments Neutrophils % (Manual) (test code = 02337-3) 74 40-74 [facility] HospitalBand Neutrophils %2019-02-20 08:47:00* Test Item Value Reference Range Interpretation Comments Band Neutrophils % (test code = 764-1) 16 [facility] HospitalLymphocytes % (Manual)2019-02-20 08:47:00 * Test Item Value Reference Range Interpretation Comments Lymphocytes % (Manual) (test code = 737-7) 3 19-48 L [facility] HospitalMonocytes % (Manual)2019-02-20 08:47:00* Test Item Value Reference Range Interpretation Comments Monocytes % (Manual) (test code = 744-3) 7 3.4-9.0 [facility] HospitalPlatelet Jtpjddhc1655-02-97 08:47:00* Test Item Value Reference Range Interpretation Comments Platelet Estimate (test code = 54926-5) SLIGHTLY DECREASED [facility] HospitalPoikilocytosis2019-11-05 08:47:00* Test Item Value Reference Range Interpretation Comments Poikilocytosis (test code = 779-9) SLIGHT [facility] HospitalAnisocytosis2019-11-05 08:47:00* Test Item Value Reference Range Interpretation Comments Anisocytosis (test code = 702-1) SLIGHT [facility] HospitalToxic Qecuhhmfaye2067-67-08 08:47:00* Test Item Value Reference Range Interpretation Comments Toxic Granulation (test code = 803-7) MODERATE [facility] HospitalRed Cell Morphology Tsrbrjp8466-51-96 08:47:00* Test Item Value Reference Range Interpretation Comments Red Cell Morphology Comment (test code = 6742-1) NORMAL [facility] HospitalErythrocyte sedimentation rate by Westergren inwzps6891-55-00 07:40:00* Test Item Value Reference Range Interpretation Comments Erythrocyte Sedimentation Rate (test code = 4537-7) 80 0- 20 [facility] C reactive protein measurement (mass/volume)2019-02-20 07:40:00* Test Item Value Reference Range Interpretation Comments C-Reactive Protein (test code = 1988-5) 589 0-10 Results confirmed ondilution.Performed at: [employer] [facility] [address] [id number] Director: Prasanna Mishra MD, Phone: [phone] Hermann Southeast HospitalManual blood band neutrophils form/100 clkqhtjrqk3002-38-20 04:55:00* Test Item Value Reference Range Interpretation Comments Band Neutrophils % (test code = 764-1) 16 [facility] HospitalBlood poikilocytosis detection by light mbutvlzqzp6242-62-43 04:55:00* Test Item Value Reference Range Interpretation Comments Poikilocytosis (test code = 779-9) SLIGHT [facility] HospitalBlood anisocytosis detection by light taaxmfpybk3541-62-88 04:55:00* Test Item Value Reference Range Interpretation Comments Anisocytosis (test code = 702-1) SLIGHT [facility] HospitalBlood toxic granules detection by light suuvthkgtt7248-68-25 04:55:00* Test Item Value Reference Range Interpretation Comments Toxic Granulation (test code = 803-7) MODERATE [facility] HospitalCT ABDOMEN/PELVIS RR7821-81-48 20:27:00 [facility] [address] [address] Patient Name: ROSA ISELA BENITEZ MR #: [id number] : Age/Sex: 49/F Req #: [id number] Adm Physician: PARMINDER NARVAEZ MD Ordered by: KATIE BOWEN MD Report #: [id number] Location: MED/SURG3 Room/Bed: [facility] Procedure: 1154-7436 CT/CT ABDOMEN/PELVIS WO Exam Date: 02/19/19 Exam [...] COPY TO: KATIE BOWEN MD Lactic Acid Elrfo0033-70-26 08:35:00* Test Item Value Reference Range Interpretation Comments Lactic Acid Level (test code = Lactic Acid Level) 3.6 0.5- 2.0 HH Results repeated and called to MAGEN MOON RN at 0834 on 02/19/19 by Kari Patton. Read back and verified.[facility] HospitalFluoroscopic procedure less than one hour ggrtnkfv1163-87-77 07:10:00* Test Item Value Reference Range Interpretation Comments Lactic Acid Level (test code = Lactic Acid Level) 3.6 0.5- 2.0 Results repeated and called to MAGEN MOON RN at 0834 on 02/19/19 by Kari Patton. Read back and verified.[facility] HospitalFOREARM LEFT 2 OLAH1442-79-96 03:17:00 [facility] [address] [address] Patient Name: ROSA ISELA BENITEZ MR #: [id number] : 1970 Age/Sex: 49/F Req #: [id number] Adm Physician: Ordered by: FUNMILAYO CALLOWAY MD Report #: [id number] Location: ER Room/Bed: Procedure: 1 104-0019 DX/FOREARM [...] MD FOREARM RIGHT 2 VIEW 2019-02-19 03:17:[address] [address] Patient Name: ROSA ISELA BENITEZ MR #: [id number] : 1970 Age/Sex: 49/F Req #: [id number] Adm Physician: Ordered by: FUNMILAYO CALLOWAY MD Report #: [id number] Location: ER Room/Bed: Procedure: 1 104-0018 DX/FOREARM [...] CALLOWAY MD CHEST SINGLE (PORTABLE) 2019-02-19 03:14:[address] [address] Patient Name: ROSA ISELA BENITEZ MR #: [id number] : 1970 Age/Sex: 49/F Req #: [id number] Adm Physician: Ordered by: FUNMILAYO CALLOWAY MD Report #: [id number] Location: ER Room/Bed: Procedure: 1 104-0021 DX/CHEST [...] BRENDON on 02/19/19316 COPY TO: FUNMILAYO CALLOWAY [facility] 3 + VIEWS DGJKT2550-80-57 03:13:00 [facility] [address] [address] Patient Name: ROSA ISELA BENITEZ MR #: [id number] : 1970 Age/Sex: 49/F Req #: [id number] Adm Physician: Ordered by: FUNMILAYO CALLOWAY MD Report #: [id number] Location: ER Room/Bed: Procedure: 1 104-0017 DX/ANKLE [...] TO: FUNMILAYO CALLOWAY MD KNEE RIGHT THREE RKVZP1166-01-92 03:11:[address] [address] Patient Name: ROSA ISELA BENITEZ MR #: [id number] : Age/Sex: 49/F Req #: [id number] Adm Physician: Ordered by: FUNMILAYO CALLOWAY MD Report #: [id number] Location: ER Room/Bed: Procedure: 1 104-0016 DX/KNEE RIGHT THREE VIEWS Exam Date: 02/19/19 Exam Time: 214 REPORT STATUS: S igned X-ray right knee [...] By: FABIAN GRIJALVA DO 2 Transcribed By: BRNEDON on 02/19/19312 COPY TO: FUNMILAYO CALLOWAY MD [facility] BILAT 3-4VWS (+/- PELVIS) 2019-02-19 03:09:[address] [address] Patient Name: ROSA ISELA BENITEZ MR #: [id number] : 1970 Age/Sex: 49/F Req #: [id number] Adm Physician: Ordered by: FUNMILAYO CALLOWAY MD Report #: [id number] Location: ER Room/Bed: Procedure: 1 104-0020 DX/HIPS [...] 02/19/19310 COPY TO: FUNMILAYO CALLOWAY Bacterial urine narunrd4856-29-59 02:55:00* Test Item Value Reference Range Interpretation Comments Urine Culture (test code = 630-4) KLEBSIELLA [facility]ONIAE [facility] IY0220-45-69 02:45:00 [facility] [address] [place] [address] Patient Name: ROSA ISELA BENITEZ MR #: [id number] : Age/Sex: 49/F Req #: [id number] Adm Physician: Ordered by: FUNMILAYO CALLOWAY MD Report #: [id number] Location: ER Room/Bed: Procedure: 1 104-0003 CT/CT [...] CALLOWAY MD CT BRAIN WO 2019-02-19 02:42:[address] [address] Patient Name: ROSA ISELA BENITEZ MR #: [id number] : 1970 Age/Sex: 49/F Req #: [id number] Adm Physician: Ordered by: FUNMILAYO CALLOWAY MD Report #: [id number] Location: ER Room/Bed: Procedure: 1 104-0002 CT/CT [...] COPY TO: FUNMILAYO CALLOWAY MD Creatine Kinase XH3537-03-98 02:23:00* Test Item Value Reference Range Interpretation Comments Creatine Kinase MB (test code = 23265-4) 0.60 0-5.0 [facility] U6611-35-91 02:23:00* Test Item Value Reference Range Interpretation Comments Troponin I (test code = OQJ5090) < 0.001 0-0.300 [facility] HospitalCreatine Vddufn9997-75-71 02:11:00* Test Item Value Reference Range Interpretation Comments Creatine Kinase (test code = 2157-6) 17 29-168 L [facility] HospitalActivated Partial Thromboplast Time 2019-02-19 02:02:00* Test Item Value Reference Range Interpretation Comments Activated Partial Thromboplast Time (test code = 53847-8) 22.8 23.8-35.5 L [facility] HospitalProthrombin Nrnk1144-90-79 02:01:00* Test Item Value Reference Range Interpretation Comments Prothrombin Time (test code = 5902-2) 11.9 11.9-14.5 [facility] HospitalProthromb Time International Ratio 2019-02-19 02:01:00* Test Item Value Reference Range Interpretation Comments Prothromb Time International Ratio (test code = 6301-6) 0.83 Oral Anticoagulant Therapy INR Values:1. Low Intensity Therapy 1.5 - 2.02 . Moderate Intensity Therapy 2.0 - 3.03. High Intensity Therapy(1) 2.5 - 3. 54. High Intensity Therapy(2) 3.0 - 4.05. Panic Value INR > 5.0 [facility] HospitalUrine Opiates Xfvwgx6559-14-28 02:01:00* Test Item Value Reference Range Interpretation Comments Urine Opiates Screen (test code = 87762-5) POSITIVE NEGATIVE H ALL TESTS PERFORMED MANUALLY ON [place] TOX/SEE TEST This test provides only a sc reen. Positive results should be repeated by a confirmatory test. PO SITIVE TCAMemorial Hermann Southeast HospitalUrine Barbiturates Screen 2019-02-19 02:01:00* Test Item Value Reference Range Interpretation Comments Urine Barbiturates Screen (test code = 915452031) NEGATIVE NEGA TIVE [facility] HospitalUrine Phencyclidine Kuftan2519-33-31 02:01:00* Test Item Value Reference Range Interpretation Comments Urine Phencyclidine Screen (test code = 58196-5) NEGATIVE NEGAT DAMIEN [facility] HospitalUrine Amphetamines Bjrxlp9143-09-40 02:01:00* Test Item Value Reference Range Interpretation Comments Urine Amphetamines Screen (test code = 92301-4) NEGATIVE NEGATI VE [facility] HospitalUrine Methamphetamines Mwlxpg8834-02-06 02:01:00* Test Item Value Reference Range Interpretation Comments Urine Methamphetamines Screen (test code = Urine Metha mphetamines Screen) NEGATIVE NEGATIVE [facility] HospitalUrine Benzodiazepines Vaqllo3557-57-11 02:01:00* Test Item Value Reference Range Interpretation Comments Urine Benzodiazepines Screen (test code = 12454-4) POSITIVE NEG ATIVE H This test provides only a screen. Positive results should be repeated by a confi rmatory test.[facility] HospitalUrine Cocaine Screen 2019-02-19 02:01:00* Test Item Value Reference Range Interpretation Comments Urine Cocaine Screen (test code = 3398-5) NEGATIVE NEGATIVE [facility] HospitalUrine Cannabinoids Igvbut8917-01-93 02:01:00* Test Item Value Reference Range Interpretation Comments Urine Cannabinoids Screen (test code = 02023-3) NEGATIVE NEGATI VE THESE RESULTS ARE FOR MEDICAL TREATMENT ONLYTHIS REPORT CONTAINS UNCONFIR MED SCREENING RESULTS*POSITIVE RESULTS WILL BE CONFIRMED BY REFERENCE LAB UPON R EQUEST CUT-OFFDRUG CLASS CONCENTRATION ng/mLAmphetamines 1000Methamphetamines 1000Cocaine 300Opiate 300Phencyc lidine 25Cannabinoid 50Barbiturates 300Benzodiazepine 300Methadone 300[facility] HospitalUrine Methadone Nnuwqy7061-74-47 02:01:00* Test Item Value Reference Range Interpretation Comments Urine Methadone Screen (test code = 79203-1) POSITIVE NEGATIVE H This test provides only a screen. Positive results should be repeated by a confi rmatory test.THESE RESULTS ARE FOR MEDICAL TREATMENT ONLYTHIS REPORT CONT AINS UNCONFIRMED SCREENING RESULTS*POSITIVE RESULTS WILL BE CONFIRMED BY REFEREN CE LAB UPON REQUEST CUT-OFFDRUG CLASS CON CENTRATION ng/mLAmphetamines 1000Methamp hetamines 1000Cocaine Metabolite 300Opiate 300Phencyclidine 25Cannabinoid 50Barbiturates 300Benzodiazepine 300Methadone 30 0[facility] HospitalUrine GLY5709-72-42 02:01:00* Test Item Value Reference Range Interpretation Comments Urine WBC (test code = 5821-4) >50 0-5 H [facility] HospitalUrine KJU6314-85-96 02:01:00* Test Item Value Reference Range Interpretation Comments Urine RBC (test code = 02339-2) 6-10 0-5 H [facility] HospitalUrine Bizqcjbd1576-98-64 02:01:00* Test Item Value Reference Range Interpretation Comments Urine Bacteria (test code = 42806-3) MANY NONE H [facility] Epithelial Ppxft8903-69-75 02:01:00 * Test Item Value Reference Range Interpretation Comments Urine Epithelial Cells (test code = 48385-9) FEW NONE [facility] HospitalUrine Transitional Epithelial Cells 2019-02-19 02:01:00* Test Item Value Reference Range Interpretation Comments Urine Transitional Epithelial Cells (test code = 8249-5) FEW NONE H [facility] HospitalUrine Coarse Granular Xbjyh2245-62-90 02:01:00* Test Item Value Reference Range Interpretation Comments Urine Coarse Granular Casts (test code = 92524-3) 1-5 >0 H [facility] HospitalUrine Elohy1053-00-90 01:58:00* Test Item Value Reference Range Interpretation Comments Urine Color (test code = 5778-6) ORANGE YELLOW H [facility] HospitalUrine Bagyvcz4003-34-97 01:58:00* Test Item Value Reference Range Interpretation Comments Urine Clarity (test code = 16187-8) CLOUDY CLEAR H [facility] HospitalUrine Specific Wwswstj5555-26-57 01:58:00 * Test Item Value Reference Range Interpretation Comments Urine Specific [place] (test code = 5811-5) >=1.030 1.010-1.02 5 [facility] HospitalUrine cO6603-72-58 01:58:00* Test Item Value Reference Range Interpretation Comments Urine pH (test code = 10009-5) 6 5-7 [facility] HospitalUrine Leukocyte Vyblydra7180-37-66 01:58:00* Test Item Value Reference Range Interpretation Comments Urine Leukocyte Esterase (test code = 69316-8) SMALL NEGATIV E [facility] HospitalUrine Bdnrsux7640-22-46 01:58:00* Test Item Value Reference Range Interpretation Comments Urine Nitrite (test code = 10105-2) POSITIVE NEGATIVE H [facility] HospitalUrine Gadhatp5933-54-71 01:58:00* Test Item Value Reference Range Interpretation Comments Urine Protein (test code = 92979-4) 1+ NEGATIVE [facility] Glucose (UA)2019-02-19 01:58:00* Test Item Value Reference Range Interpretation Comments Urine Glucose (UA) (test code = 17805-8) 1+ NEGATIVE [facility] Smcxzmk3176-01-68 01:58:00* Test Item Value Reference Range Interpretation Comments Urine Ketones (test code = 62948-5) TRACE NEGATIVE [facility] Dpdxitwabbic7125-17-23 01:58:00* Test Item Value Reference Range Interpretation Comments Urine Urobilinogen (test code = 49126-4) 1 0.2-1 [facility] Rqiqwungm7101-54-29 01:58:00* Test Item Value Reference Range Interpretation Comments Urine Bilirubin (test code = 1977-8) SMALL NEGATIVE [facility] Yolvl1237-78-51 01:58:00* Test Item Value Reference Range Interpretation Comments Urine Blood (test code = 84133-8) TRACE NEGATIVE [facility] HospitalProthrombin time (PT) in platelet poor plasma by coagulation alwkz7093-68-61 00:28:00* Test Item Value Reference Range Interpretation Comments Prothrombin Time (test code = 5902-2) 11.9 11.9-14.5 [facility] HospitalINR in Platelet poor plasma by Coagulation qjdqx4647-74-54 00:28:00* Test Item Value Reference Range Interpretation Comments Prothromb Time International Ratio (test code = 6301-6) 0.83 Oral Anticoagulant Therapy INR Values:1. Low Intensity Therapy 1.5 - 2.02 . Moderate Intensity Therapy 2.0 - 3.03. High Intensity Therapy(1) 2.5 - 3. 54. High Intensity Therapy(2) 3.0 - 4.05. Panic Value INR > 5.0 [facility] HospitalActivated partial thromboplastin time (aPTT) in platelet poor plasma by coagulation pqmva4076-25-51 00:28:00* Test Item Value Reference Range Interpretation Comments Activated Partial Thromboplast Time (test code = 42502-7) 22.8 23.8-35.5 [facility] HospitalUrine opiates screening lblg1973-45-62 00:28:00* Test Item Value Reference Range Interpretation Comments Urine Opiates Screen (test code = 77136-9) POSITIVE NEGATIVE ALL TESTS PERFORMED MANUALLY ON [place] TOX/SEE TEST This test provides only a sc reen. Positive results should be repeated by a confirmatory test. PO SITIVE TCAMemorial Hermann Southeast HospitalBarbiturates screen, urine 2019-02-19 00:28:00* Test Item Value Reference Range Interpretation Comments Urine Barbiturates Screen (test code = 179022235) NEGATIVE NEGA TIVE [facility] HospitalUrine phencyclidine detection by screening ldpiut9138-79-96 00:28:00* Test Item Value Reference Range Interpretation Comments Urine Phencyclidine Screen (test code = 61686-8) NEGATIVE NEGAT DAMIEN [facility] HospitalUrine amphetamines detection by screen method > 1000 ng/qF8333-96-32 00:28:00* Test Item Value Reference Range Interpretation Comments Urine Amphetamines Screen (test code = 17543-8) NEGATIVE NEGATI VE [facility] HospitalFluoroscopic procedure less than one hour mrtvucej8967-10-77 00:28:00* Test Item Value Reference Range Interpretation Comments Urine Methamphetamines Screen (test code = Urine Metha mphetamines Screen) NEGATIVE NEGATIVE [facility] HospitalUrine benzodiazepines detection by screening wjmkdv6098-01-87 00:28:00* Test Item Value Reference Range Interpretation Comments Urine Benzodiazepines Screen (test code = 75836-1) POSITIVE NEG ATIVE This test provides only a screen. Positive results should be repeated by a confi rmatory test.[facility] HospitalUrine cocaine measurement (mass/volume)2019-02-19 00:28:00* Test Item Value Reference Range Interpretation Comments Urine Cocaine Screen (test code = 3398-5) NEGATIVE NEGATIVE [facility] HospitalUrine cannabinoids detection by screening usnetl7633-00-23 00:28:00* Test Item Value Reference Range Interpretation Comments Urine Cannabinoids Screen (test code = 27821-4) NEGATIVE NEGATI VE THESE RESULTS ARE FOR MEDICAL TREATMENT ONLYTHIS REPORT CONTAINS UNCONFIR MED SCREENING RESULTS*POSITIVE RESULTS WILL BE CONFIRMED BY REFERENCE LAB UPON R EQUEST CUT-OFFDRUG CLASS CONCENTRATION ng/mLAmphetamines 1000Methamphetamines 1000Cocaine 300Opiate 300Phencyc lidine 25Cannabinoid 50Barbiturates 300Benzodiazepine 300Methadone 300[facility] HospitalUrine methadone elxkgl1362-86-90 00:28:00* Test Item Value Reference Range Interpretation Comments Urine Methadone Screen (test code = 80130-8) POSITIVE NEGATIVE This test provides only a screen. Positive results should be repeated by a confi rmatory test.THESE RESULTS ARE FOR MEDICAL TREATMENT ONLYTHIS REPORT CONT AINS UNCONFIRMED SCREENING RESULTS*POSITIVE RESULTS WILL BE CONFIRMED BY REFEREN CE LAB UPON REQUEST CUT-OFFDRUG CLASS CON CENTRATION ng/mLAmphetamines 1000Methamp hetamines 1000Cocaine Metabolite 300Opiate 300Phencyclidine 25Cannabinoid 50Barbiturates 300Benzodiazepine 300Methadone 30 0[facility] HospitalTransitional cells detection in urine sediment by light wsctacnbnm7076-63-28 00:28:00* Test Item Value Reference Range Interpretation Comments Urine Transitional Epithelial Cells (test code = 8249-5) FEW NONE [facility] HospitalCoarse granular casts detection in urine sediment by light eloafnpiig2229-14-22 00:28:00* Test Item Value Reference Range Interpretation Comments Urine Coarse Granular Casts (test code = 26098-0) 1-5 >0 [facility]ererum or plasma creatine kinase measurement (enzymatic activity/volume)2019-02-19 00:28:00* Test Item Value Reference Range Interpretation Comments Creatine Kinase (test code = 2157-6) 17 29-168 [facility] Centererum or plasma creatine kinase MB measurement (mass/volume)2019-02-19 00:28:00* Test Item Value Reference Range Interpretation Comments Creatine Kinase MB (test code = 38178-3) 0.60 0-5.0 [facility] HospitalTroponin I measurement by highly sensitive enzyme qdvaflwefem1178-23-82 00:28:00* Test Item Value Reference Range Interpretation Comments Troponin I (test code = 20985-9) < 0.001 0-0.300 [facility] HospitalBedside Vchbhbb5389-22-33 13:28:00* Test Item Value Reference Range Interpretation Comments Bedside Glucose (test code = 04624-6) 323 70-120 H Meter ID: [id number] Mountain Medical CenterBlood Culture 2019-02-12 20:11:00* Test Item Value Reference Range Interpretation Comments Blood Culture (test code = 14044004) NO GROWTH AFTER 5 DAYS, FINAL REPORT [facility] Centerodium Wpipm3732-29-61 05:39:00* Test Item Value Reference Range Interpretation Comments Sodium Level (test code = 2951-2) 140 136-145 [facility] HospitalPotassium Hlbte4276-04-50 05:39:00* Test Item Value Reference Range Interpretation Comments Potassium Level (test code = 2823-3) 4.3 3.5-5.1 [facility] HospitalChloride Uipwi1940-77-20 05:39:00* Test Item Value Reference Range Interpretation Comments Chloride Level (test code = 2075-0) 104 98-107 [facility] HospitalCarbon Dioxide Utyvq2497-57-93 05:39:00* Test Item Value Reference Range Interpretation Comments Carbon Dioxide Level (test code = 2028-9) 22 22-29 [facility] HospitalAnion Kpv8420-30-60 05:39:00* Test Item Value Reference Range Interpretation Comments Anion Gap (test code = 55556-5) 18.3 8-16 H [facility] HospitalBlood Urea Denzssqo8622-58-21 05:39:00* Test Item Value Reference Range Interpretation Comments Blood Urea Nitrogen (test code = 3094-0) 12 7-26 [facility] HospitalCreatinine2019-10-24 05:39:00* Test Item Value Reference Range Interpretation Comments Creatinine (test code = 2160-0) 0.76 0.57-1.11 [facility] HospitalBUN/Creatinine Vksyz2515-60-80 05:39:00* Test Item Value Reference Range Interpretation Comments BUN/Creatinine Ratio (test code = 3097-3) 16 6-25 [facility] HospitalEstimat Glomerular Filtration Rate 2019-02-08 05:39:00* Test Item Value Reference Range Interpretation Comments Estimat Glomerular Filtration Rate (test code = 494925054) > 60 >60 Ranges were taken from the National Kidney Disease Education Program and the [employer] literature.Reference ranges:60 or greater: Xeofcb75-47 ( for 3 consecutive months): Chronic kidney disease 15 or less: Kidney failureMemorial Hermann Southeast HospitalGlucose Umeqs3555-47-87 05:39:00* Test Item Value Reference Range Interpretation Comments Glucose Level (test code = PMY5937) 183 74-118 H [facility] HospitalCalcium Zhghl4056-20-08 05:39:00* Test Item Value Reference Range Interpretation Comments Calcium Level (test code = 78114-8) 9.1 8.4-10.2 [facility] HospitalPhosphorus Pdrls7793-89-40 05:39:00* Test Item Value Reference Range Interpretation Comments Phosphorus Level (test code = VCD1562) 4.3 2.3-4.7 [facility] HospitalMagnesium Vetai5631-68-35 05:39:00* Test Item Value Reference Range Interpretation Comments Magnesium Level (test code = 29884-6) 2.1 1.3-2.1 [facility] HospitalTotal Jiwjbjevh6683-44-28 05:39:00* Test Item Value Reference Range Interpretation Comments Total Bilirubin (test code = 1975-2) 0.5 0.2-1.2 [facility] HospitalAspartate Amino Transf (AST/SGOT) 2019-02-08 05:39:00* Test Item Value Reference Range Interpretation Comments Aspartate Amino Transf (AST/SGOT) (test code = Aspartate Amino Transf (AST/SGOT)) 32 5-34 [facility] HospitalAlanine Aminotransferase (ALT/SGPT) 2019-02-08 05:39:00* Test Item Value Reference Range Interpretation Comments Alanine Aminotransferase (ALT/SGPT) (test code = 1742-6) 175 0-55 H [facility] HospitalTotal Mgjvplf6542-27-50 05:39:00* Test Item Value Reference Range Interpretation Comments Total Protein (test code = 2885-2) 6.3 6.5-8.1 L [facility] HospitalAlbumin2019-10-24 05:39:00* Test Item Value Reference Range Interpretation Comments Albumin (test code = 1751-7) 3.1 3.5-5.0 L [facility] [facility]:39[facility]00* Test Item Value Reference Range Interpretation Comments Globulin (test code = 52660-9) 3.2 2.3-3.5 [facility] HospitalAlbumin/Globulin Oppsu0499-08-12 05:39:00 * Test Item Value Reference Range Interpretation Comments Albumin/Globulin Ratio (test code = 1759-0) 1.0 0.8-2.0 [facility] HospitalAlkaline Xbygkorvpvp5590-25-94 05:39:00* Test Item Value Reference Range Interpretation Comments Alkaline Phosphatase (test code = 6768-6) 90 40-150 [facility] HospitalPhosphorus Nubby1785-07-02 05:39:00* Test Item Value Reference Range Interpretation Comments Phosphorus Level (test code = BWW5367) 4.3 2.3-4.7 [facility] HospitalWhite Blood Hmjzf5110-66-16 05:11:00* Test Item Value Reference Range Interpretation Comments White Blood Count (test code = 6690-2) 16.37 4.8-10.8 H [facility] HospitalRed Blood Wtxja0926-75-02 05:11:00* Test Item Value Reference Range Interpretation Comments Red Blood Count (test code = 789-8) 3.58 3.6-5.1 L [facility] HospitalHemoglobin2019-10-24 05:11:00* Test Item Value Reference Range Interpretation Comments Hemoglobin (test code = 13637-0) 11.6 12.0-16.0 L [facility] HospitalHematocrit2019-10-24 05:11:00* Test Item Value Reference Range Interpretation Comments Hematocrit (test code = 4544-3) 36.3 34.2-44.1 [facility] HospitalMean Corpuscular Xhofjk7768-69-49 05:11:00* Test Item Value Reference Range Interpretation Comments Mean Corpuscular Volume (test code = 787-2) 101.4 81-99 H [facility] HospitalMean Corpuscular Qdzzrvdhkz0941-73-07 05:11:00* Test Item Value Reference Range Interpretation Comments Mean Corpuscular Hemoglobin (test code = 785-6) 32.4 28-32 H [facility] HospitalMean Corpuscular Hemoglobin Concent 2019-02-08 05:11:00* Test Item Value Reference Range Interpretation Comments Mean Corpuscular Hemoglobin Concent (test code = 786-4) 32.0 31-35 [facility] HospitalRed Cell Distribution Tgvna7425-23-27 05:11:00* Test Item Value Reference Range Interpretation Comments Red Cell Distribution Width (test code = 85568-3) 14.6 11.7 -14.4 H [facility] HospitalPlatelet Wblkv0619-93-65 05:11:00* Test Item Value Reference Range Interpretation Comments Platelet Count (test code = 777-3) 394 140-360 H [facility] HospitalNeutrophils (%) (Auto)2019-02-08 05:11:00 * Test Item Value Reference Range Interpretation Comments Neutrophils (%) (Auto) (test code = 94973-7) 75.7 38.7-80.0 [facility] HospitalLymphocytes (%) (Auto)2019-02-08 05:11:00 * Test Item Value Reference Range Interpretation Comments Lymphocytes (%) (Auto) (test code = 736-9) 15.1 18.0-39.1 L [facility] HospitalMonocytes (%) (Auto)2019-02-08 05:11:00* Test Item Value Reference Range Interpretation Comments Monocytes (%) (Auto) (test code = 5905-5) 7.3 4.4-11.3 [facility] HospitalEosinophils (%) (Auto)2019-02-08 05:11:00 * Test Item Value Reference Range Interpretation Comments Eosinophils (%) (Auto) (test code = 713-8) 0.6 0.0-6.0 [facility] HospitalBasophils (%) (Auto)2019-02-08 05:11:00* Test Item Value Reference Range Interpretation Comments Basophils (%) (Auto) (test code = 706-2) 0.4 0.0-1.0 [facility] HospitalIM GRANULOCYTES %2019-02-08 05:11:00* Test Item Value Reference Range Interpretation Comments IM GRANULOCYTES % (test code = IM GRANULOCYTES %) 0.9 0.0- 1.0 [facility] HospitalNeutrophils # (Auto)2019-02-08 05:11:00* Test Item Value Reference Range Interpretation Comments Neutrophils # (Auto) (test code = 751-8) 12.4 2.1-6.9 H [facility] HospitalLymphocytes # (Auto)2019-02-08 05:11:00* Test Item Value Reference Range Interpretation Comments Lymphocytes # (Auto) (test code = 05688-4) 2.5 1.0-3.2 [facility] HospitalMonocytes # (Auto)2019-02-08 05:11:00* Test Item Value Reference Range Interpretation Comments Monocytes # (Auto) (test code = 742-7) 1.2 0.2-0.8 H [facility] HospitalEosinophils # (Auto)2019-02-08 05:11:00* Test Item Value Reference Range Interpretation Comments Eosinophils # (Auto) (test code = 711-2) 0.1 0.0-0.4 [facility] HospitalBasophils # (Auto)2019-02-08 05:11:00* Test Item Value Reference Range Interpretation Comments Basophils # (Auto) (test code = 704-7) 0.1 0.0-0.1 [facility] HospitalAbsolute Immature Granulocyte (auto 2019-02-08 05:11:00* Test Item Value Reference Range Interpretation Comments Absolute Immature Granulocyte (auto (anita t code = Absolute Immature Granulocyte (auto) 0.15 0-0.1 H [facility] HospitalPhosphorus kddyytjixbs3030-96-40 04:45:00 * Test Item Value Reference Range Interpretation Comments Phosphorus Level (test code = YQG9439) 4.3 2.3-4.7 [facility] HospitalUrine LOR1698-19-67 21:35:00* Test Item Value Reference Range Interpretation Comments Urine WBC (test code = 5821-4) 0-5 0-5 [facility] HospitalUrine FDA4673-36-42 21:35:00* Test Item Value Reference Range Interpretation Comments Urine RBC (test code = 05943-7) NONE 0-5 [facility] HospitalUrine Kbveyrlv0839-50-24 21:35:00* Test Item Value Reference Range Interpretation Comments Urine Bacteria (test code = 55004-2) MODERATE NONE H [facility] HospitalUrine Epithelial Nklvo5444-84-12 21:35:00 * Test Item Value Reference Range Interpretation Comments Urine Epithelial Cells (test code = 52631-3) NONE NONE [facility] HospitalUrine Gmejn8542-53-63 21:19:00* Test Item Value Reference Range Interpretation Comments Urine Color (test code = 5778-6) YELLOW YELLOW [facility] HospitalUrine Cluicpr0379-65-21 21:19:00* Test Item Value Reference Range Interpretation Comments Urine Clarity (test code = 06886-8) SL CLOUDY CLEAR [facility] HospitalUrine Specific Naaxgvc8805-98-31 21:19:00 * Test Item Value Reference Range Interpretation Comments Urine Specific [place] (test code = 5811-5) >=1.030 1.010-1.02 5 [facility] HospitalUrine oH8933-39-25 21:19:00* Test Item Value Reference Range Interpretation Comments Urine pH (test code = 66376-1) 6 5-7 [facility] HospitalUrine Leukocyte Sggrbxvx5241-82-08 21:19:00* Test Item Value Reference Range Interpretation Comments Urine Leukocyte Esterase (test code = 72154-1) NEGATIVE NEGATIV E [facility] HospitalUrine Sfwydip6297-80-04 21:19:00* Test Item Value Reference Range Interpretation Comments Urine Nitrite (test code = 60801-3) NEGATIVE NEGATIVE [facility] HospitalUrine Unantsu6005-75-04 21:19:00* Test Item Value Reference Range Interpretation Comments Urine Protein (test code = 15375-4) NEGATIVE NEGATIVE [facility] HospitalUrine Glucose (UA)2019-02-07 21:19:00* Test Item Value Reference Range Interpretation Comments Urine Glucose (UA) (test code = 21303-2) NEGATIVE NEGATIVE [facility] HospitalUrine Vnwceoj3756-96-57 21:19:00* Test Item Value Reference Range Interpretation Comments Urine Ketones (test code = 78120-3) NEGATIVE NEGATIVE [facility] HospitalUrine Uvjrwkqizjgo7851-51-65 21:19:00* Test Item Value Reference Range Interpretation Comments Urine Urobilinogen (test code = 06430-8) 0.2 0.2-1 [facility] HospitalUrine Vidyuxjkb9224-32-19 21:19:00* Test Item Value Reference Range Interpretation Comments Urine Bilirubin (test code = 1977-8) NEGATIVE NEGATIVE [facility] HospitalUrine Xhbrs7494-38-98 21:19:00* Test Item Value Reference Range Interpretation Comments Urine Blood (test code = 14851-3) NEGATIVE NEGATIVE [facility] HospitalUrine Qcxb4240-33-06 21:18:00* Test Item Value Reference Range Interpretation Comments Urine Test (test code = 2106-3) NEGATIVE NEGATIVE [facility] HospitalUrine Ulop7110-32-88 21:18:00* Test Item Value Reference Range Interpretation Comments Urine Test (test code = 2106-3) NEGATIVE NEGATIVE [facility] HospitalUrine human chorionic gonadotropin (hCG) ykzsebkvy7382-31-15 20:45:00* Test Item Value Reference Range Interpretation Comments Urine Test (test code = 2106-3) NEGATIVE NEGATIVE [facility] HospitalLactic Acid Fvrfh9750-60-68 20:04:00* Test Item Value Reference Range Interpretation Comments Lactic Acid Level (test code = Lactic Acid Level) 1.6 0.5- 2.0 [facility] HospitalCHEST SINGLE (PORTABLE)2019-02-07 19:03:00 [facility] [address] [place] [address] Patient Name: ROSA ISELA BENITEZ MR #: [id number] : 1970 Age/Sex: 49/F Req #: [id number] Adm Physician: Ordered by: ESTER PASTOR MD, MD Report #: [id number] Location: ER Room/Bed: Procedure: 1023-0 072 DX/CHEST [...] 02/07/191902 COPY TO: ESTER PASTOR B-Type Natriuretic Oufuble8197-97-29 18:26:00* Test Item Value Reference Range Interpretation Comments B-Type Natriuretic Peptide (test code = 10010-3) 58.7 0-100 [facility] HospitalCreatine Kinase SP4229-08-47 18:26:00* Test Item Value Reference Range Interpretation Comments Creatine Kinase MB (test code = 12324-9) 3.70 0-5.0 [facility] HospitalTroponin V8456-72-85 18:26:00* Test Item Value Reference Range Interpretation Comments Troponin I (test code = EXU2940) 0.011 0-0.300 [facility] HospitalB-Type Natriuretic Vkhskbl2528-37-34 18:26:00* Test Item Value Reference Range Interpretation Comments B-Type Natriuretic Peptide (test code = 77360-8) 58.7 0-100 [facility] HospitalCreatine Cuvqfs5231-88-64 18:16:00* Test Item Value Reference Range Interpretation Comments Creatine Kinase (test code = 2157-6) 117 29-168 [facility] HospitalLipase2019-10-23 18:16:00* Test Item Value Reference Range Interpretation Comments Lipase (test code = 3040-3) [facility] HospitalLipase2019-10-23 18:16:00* Test Item Value Reference Range Interpretation Comments Lipase (test code = 3040-3) [facility] HospitalProthrombin Typc2353-54-17 18:05:00* Test Item Value Reference Range Interpretation Comments Prothrombin Time (test code = 5902-2) 12.4 11.9-14.5 [facility] HospitalProthromb Time International Ratio 2019-02-07 18:05:00* Test Item Value Reference Range Interpretation Comments Prothromb Time International Ratio (test code = 6301-6) 0.88 Oral Anticoagulant Therapy INR Values:1. Low Intensity Therapy 1.5 - 2.02 . Moderate Intensity Therapy 2.0 - 3.03. High Intensity Therapy(1) 2.5 - 3. 54. High Intensity Therapy(2) 3.0 - 4.05. Panic Value INR > 5.0 [facility] HospitalActivated Partial Thromboplast Time 2019-02-07 18:05:00* Test Item Value Reference Range Interpretation Comments Activated Partial Thromboplast Time (test code = 59072-8) 24.1 23.8-35.5 [facility] HospitalBNP Jyn-zQab4125-31-23 15:15:00* Test Item Value Reference Range Interpretation Comments B-Type Natriuretic Peptide (test code = 98231-3) 58.7 0-100 [facility] lip[facility] (enzymatic activity/volume)2019-02-07 15:15:00* Test Item Value Reference Range Interpretation Comments Lipase (test code = 3040-3) 22 8-78 [facility] HospitalWhite Blood Aicdt5349-01-53 06:17:00* Test Item Value Reference Range Interpretation Comments White Blood Count (test code = 6690-2) 15.04 4.8-10.8 H [facility] HospitalRed Blood Odgww4285-23-97 06:17:00* Test Item Value Reference Range Interpretation Comments Red Blood Count (test code = 789-8) 3.84 3.6-5.1 [facility] HospitalHemoglobin2019-10-14 06:17:00* Test Item Value Reference Range Interpretation Comments Hemoglobin (test code = 68299-3) 12.6 12.0-16.0 [facility] HospitalHematocrit2019-10-14 06:17:00* Test Item Value Reference Range Interpretation Comments Hematocrit (test code = 4544-3) 37.6 34.2-44.1 [facility] HospitalMean Corpuscular Hvxjhu6697-08-04 06:17:00* Test Item Value Reference Range Interpretation Comments Mean Corpuscular Volume (test code = 787-2) 97.9 81-99 [facility] HospitalMean Corpuscular Xltvfywbha9926-75-72 06:17:00* Test Item Value Reference Range Interpretation Comments Mean Corpuscular Hemoglobin (test code = 785-6) 32.8 28-32 H [facility] HospitalMean Corpuscular Hemoglobin Concent 2019-01-29 06:17:00* Test Item Value Reference Range Interpretation Comments Mean Corpuscular Hemoglobin Concent (test code = 786-4) 33.5 31-35 [facility] HospitalRed Cell Distribution Akacw4524-15-67 06:17:00* Test Item Value Reference Range Interpretation Comments Red Cell Distribution Width (test code = 44927-5) 13.6 11.7 -14.4 [facility] HospitalPlatelet Owbkb6068-70-82 06:17:00* Test Item Value Reference Range Interpretation Comments Platelet Count (test code = 777-3) 445 140-360 H [facility] HospitalNeutrophils (%) (Auto)2019-01-29 06:17:00 * Test Item Value Reference Range Interpretation Comments Neutrophils (%) (Auto) (test code = 48718-6) 71.6 38.7-80.0 [facility] HospitalLymphocytes (%) (Auto)2019-01-29 06:17:00 * Test Item Value Reference Range Interpretation Comments Lymphocytes (%) (Auto) (test code = 736-9) 20.3 18.0-39.1 [facility] HospitalMonocytes (%) (Auto)2019-01-29 06:17:00* Test Item Value Reference Range Interpretation Comments Monocytes (%) (Auto) (test code = 5905-5) 6.1 4.4-11.3 [facility] HospitalEosinophils (%) (Auto)2019-01-29 06:17:00 * Test Item Value Reference Range Interpretation Comments Eosinophils (%) (Auto) (test code = 713-8) 0.4 0.0-6.0 [facility] HospitalBasophils (%) (Auto)2019-01-29 06:17:00* Test Item Value Reference Range Interpretation Comments Basophils (%) (Auto) (test code = 706-2) 0.4 0.0-1.0 [facility] HospitalIM GRANULOCYTES %2019-01-29 06:17:00* Test Item Value Reference Range Interpretation Comments IM GRANULOCYTES % (test code = IM GRANULOCYTES %) 1.2 0.0- 1.0 H [facility] HospitalNeutrophils # (Auto)2019-01-29 06:17:00* Test Item Value Reference Range Interpretation Comments Neutrophils # (Auto) (test code = 751-8) 10.8 2.1-6.9 H [facility] HospitalLymphocytes # (Auto)2019-01-29 06:17:00* Test Item Value Reference Range Interpretation Comments Lymphocytes # (Auto) (test code = 59322-6) 3.1 1.0-3.2 [facility] HospitalMonocytes # (Auto)2019-01-29 06:17:00* Test Item Value Reference Range Interpretation Comments Monocytes # (Auto) (test code = 742-7) 0.9 0.2-0.8 H [facility] HospitalEosinophils # (Auto)2019-01-29 06:17:00* Test Item Value Reference Range Interpretation Comments Eosinophils # (Auto) (test code = 711-2) 0.1 0.0-0.4 [facility] HospitalBasophils # (Auto)2019-01-29 06:17:00* Test Item Value Reference Range Interpretation Comments Basophils # (Auto) (test code = 704-7) 0.1 0.0-0.1 [facility] HospitalAbsolute Immature Granulocyte (auto 2019-01-29 06:17:00* Test Item Value Reference Range Interpretation Comments Absolute Immature Granulocyte (auto (anita t code = Absolute Immature Granulocyte (auto) 0.18 0-0.1 [facility] Centerodium Nzbao9414-69-78 06:12:00* Test Item Value Reference Range Interpretation Comments Sodium Level (test code = 2951-2) 138 136-145 [facility] HospitalPotassium Tlabr1167-46-96 06:12:00* Test Item Value Reference Range Interpretation Comments Potassium Level (test code = 2823-3) 3.5 3.5-5.1 [facility] HospitalChloride Ikydo4971-59-34 06:12:00* Test Item Value Reference Range Interpretation Comments Chloride Level (test code = 2075-0) 102 98-107 [facility] HospitalCarbon Dioxide Wwkbx2878-22-65 06:12:00* Test Item Value Reference Range Interpretation Comments Carbon Dioxide Level (test code = 2028-9) 27 22-29 [facility] HospitalAnion Bbw0234-65-39 06:12:00* Test Item Value Reference Range Interpretation Comments Anion Gap (test code = 50634-6) 12.5 8-16 [facility] HospitalBlood Urea Tbczztjk6824-25-25 06:12:00* Test Item Value Reference Range Interpretation Comments Blood Urea Nitrogen (test code = 3094-0) 13 7-26 [facility] HospitalCreatinine2019-10-14 06:12:00* Test Item Value Reference Range Interpretation Comments Creatinine (test code = 2160-0) 0.97 0.57-1.11 [facility] HospitalBUN/Creatinine Naibm3736-03-59 06:12:00* Test Item Value Reference Range Interpretation Comments BUN/Creatinine Ratio (test code = 3097-3) 13 6-25 [facility] HospitalEstimat Glomerular Filtration Rate 2019-01-29 06:12:00* Test Item Value Reference Range Interpretation Comments Estimat Glomerular Filtration Rate (test code = 459284851) > 60 >60 Ranges were taken from the National Kidney Disease Education Program and the [employer] literature.Reference ranges:60 or greater: Zauwku86-34 ( for 3 consecutive months): Chronic kidney disease 15 or less: Kidney failureMemorial Hermann Southeast HospitalGlucose Zwmgz7049-70-62 06:12:00* Test Item Value Reference Range Interpretation Comments Glucose Level (test code = EEP7692) 176 74-118 H [facility] HospitalCalcium Upooy9101-27-71 06:12:00* Test Item Value Reference Range Interpretation Comments Calcium Level (test code = 58501-3) 9.1 8.4-10.2 [facility] HospitalTotal Nqpmyltvy0175-89-81 06:12:00* Test Item Value Reference Range Interpretation Comments Total Bilirubin (test code = 1975-2) 0.3 0.2-1.2 [facility] HospitalAspartate Amino Transf (AST/SGOT) 2019-01-29 06:12:00* Test Item Value Reference Range Interpretation Comments Aspartate Amino Transf (AST/SGOT) (test code = Aspartate Amino Transf (AST/SGOT)) 33 5-34 [facility] HospitalAlanine Aminotransferase (ALT/SGPT) 2019-01-29 06:12:00* Test Item Value Reference Range Interpretation Comments Alanine Aminotransferase (ALT/SGPT) (test code = 1742-6) 34 0-55 [facility] HospitalTotal Qggimuk8445-05-82 06:12:00* Test Item Value Reference Range Interpretation Comments Total Protein (test code = 2885-2) 6.2 6.5-8.1 L [facility] HospitalAlbumin2019-10-14 06:12:00* Test Item Value Reference Range Interpretation Comments Albumin (test code = 1751-7) 3.0 3.5-5.0 L [facility] HospitalGlobulin2019-10-14 06:12:00* Test Item Value Reference Range Interpretation Comments Globulin (test code = 34608-1) 3.2 2.3-3.5 [facility] HospitalAlbumin/Globulin Zcate9039-53-67 06:12:00 * Test Item Value Reference Range Interpretation Comments Albumin/Globulin Ratio (test code = 1759-0) 0.9 0.8-2.0 [facility] HospitalAlkaline Fbiohuuesgr1480-58-31 06:12:00* Test Item Value Reference Range Interpretation Comments Alkaline Phosphatase (test code = 6768-6) 74 40-150 [facility] HospitalBedside Brbnlkq7488-29-06 21:06:00* Test Item Value Reference Range Interpretation Comments Bedside Glucose (test code = 94358-9) 181 70-120 H Meter ID: [id number] Mountain Medical CenterMagnesium Level 2019-01-28 06:36:00* Test Item Value Reference Range Interpretation Comments Magnesium Level (test code = 51994-0) 2.2 1.3-2.1 H [facility] HospitalCHEST 2 NLVIE7172-53-22 10:04:00 [place] [id number] [place] [address] Patient Name: ROSA ISELA BENITEZ MR #: [id number] : Age/Sex: 48/F Req #: [id number] Adm Physician: Ordered by: SHEY CORONEL MD Report #: [id number] Location: ER Room/Bed: Procedure: 1012-0 009 DX/CHEST 2 VIEWS Exam Date: 01/27/19 Exam Time: 09 REPORT STATUS: Signed EXAMI NATION: CHEST 2 [...] COPY TO: SHEY CORONEL MD CT ABDOMEN/PELVIS QU6295-90-48 08:39:00 [place] [address] Patient Name: ROSA ISELA BENITEZ MR #: [id number] : 1970 Age/Sex: 48/F Req #: [id number] Adm Physician: Ordered by: SHEY CORONEL MD Report #: [id number] Location: ER Room/Bed: Procedure: 1012-[address]/CT [...] COPY TO: SHEY CORONEL MD Creatine Kinase NL6752-14-90 08:23:00* Test Item Value Reference Range Interpretation Comments Creatine Kinase MB (test code = 34755-3) 4.10 0-5.0 [facility] HospitalTroponin K5563-04-66 08:23:00* Test Item Value Reference Range Interpretation Comments Troponin I (test code = MIA5399) 0.014 0-0.300 [facility] HospitalCreatine Pgagyc8454-85-85 08:18:00* Test Item Value Reference Range Interpretation Comments Creatine Kinase (test code = 2157-6) 76 29-168 [facility] HospitalUrine XWN8603-77-57 08:11:00* Test Item Value Reference Range Interpretation Comments Urine WBC (test code = 5821-4) 0-5 0-5 [facility] HospitalUrine AGF9896-08-74 08:11:00* Test Item Value Reference Range Interpretation Comments Urine RBC (test code = 77776-8) 0-5 0-5 [facility] HospitalUrine Jelhuhrw2714-72-90 08:11:00* Test Item Value Reference Range Interpretation Comments Urine Bacteria (test code = 98090-2) RARE NONE [facility] HospitalUrine Epithelial Qwttt3056-24-45 08:11:00 * Test Item Value Reference Range Interpretation Comments Urine Epithelial Cells (test code = 39956-3) MODERATE NONE [facility] HospitalUrine Gtcfv5694-23-17 08:01:00* Test Item Value Reference Range Interpretation Comments Urine Color (test code = 5778-6) YELLOW YELLOW [facility] HospitalUrine Xjbdqcg8262-68-31 08:01:00* Test Item Value Reference Range Interpretation Comments Urine Clarity (test code = 75535-4) CLEAR CLEAR [facility] Specific Lodcvnb0237-36-59 08:01:00 * Test Item Value Reference Range Interpretation Comments Urine Specific [place] (test code = 5811-5) 1.010 1.010-1.02 5 [facility] HospitalUrine zK9842-04-10 08:01:00* Test Item Value Reference Range Interpretation Comments Urine pH (test code = 16452-6) 6.5 5-7 [facility] Leukocyte Mkmvdbnk8384-09-71 08:01:00* Test Item Value Reference Range Interpretation Comments Urine Leukocyte Esterase (test code = 36601-4) NEGATIVE NEGATIV E [facility] Ravopgw7242-32-02 08:01:00* Test Item Value Reference Range Interpretation Comments Urine Nitrite (test code = 71117-4) NEGATIVE NEGATIVE [facility] Vjrrlvl1554-42-80 08:01:00* Test Item Value Reference Range Interpretation Comments Urine Protein (test code = 43838-8) NEGATIVE NEGATIVE [facility] Glucose (UA)2019-01-27 08:01:00* Test Item Value Reference Range Interpretation Comments Urine Glucose (UA) (test code = 39760-9) 2+ NEGATIVE H [facility] HospitalUrine Llrgvcj9814-51-58 08:01:00* Test Item Value Reference Range Interpretation Comments Urine Ketones (test code = 21923-7) NEGATIVE NEGATIVE [facility] Khzlkcrvlzog6361-90-35 08:01:00* Test Item Value Reference Range Interpretation Comments Urine Urobilinogen (test code = 37890-8) 0.2 0.2-1 [facility] HospitalUrine Htwkixyhg1478-32-18 08:01:00* Test Item Value Reference Range Interpretation Comments Urine Bilirubin (test code = 1977-8) NEGATIVE NEGATIVE [facility] HospitalUrine Ltwra5161-39-26 08:01:00* Test Item Value Reference Range Interpretation Comments Urine Blood (test code = 00632-8) NEGATIVE NEGATIVE [facility] HospitalBedside Yftgrmb3455-77-97 11:45:00* Test Item Value Reference Range Interpretation Comments Bedside Glucose (test code = 94563-1) 108 70-120 Meter ID: [id number] Medical Centerodium Level 2018-11-29 06:48:00* Test Item Value Reference Range Interpretation Comments Sodium Level (test code = 2951-2) 134 136-145 L [facility] HospitalPotassium Pyiof9412-65-65 06:48:00* Test Item Value Reference Range Interpretation Comments Potassium Level (test code = 2823-3) 3.8 3.5-5.1 [facility] HospitalChloride Vcmzq0981-46-77 06:48:00* Test Item Value Reference Range Interpretation Comments Chloride Level (test code = 2075-0) 101 98-107 [facility] HospitalCarbon Dioxide Qynai3141-21-53 06:48:00* Test Item Value Reference Range Interpretation Comments Carbon Dioxide Level (test code = 2028-9) 23 22-29 [facility] HospitalAnion Wnd8780-18-02 06:48:00* Test Item Value Reference Range Interpretation Comments Anion Gap (test code = 13468-0) 13.8 8-16 [facility] HospitalBlood Urea Akcdqvrz3175-86-91 06:48:00* Test Item Value Reference Range Interpretation Comments Blood Urea Nitrogen (test code = 3094-0) 8 7-26 [facility] HospitalCreatinine2019-08-14 06:48:00* Test Item Value Reference Range Interpretation Comments Creatinine (test code = 2160-0) 0.83 0.57-1.11 [facility] HospitalBUN/Creatinine Pucgi0119-02-03 06:48:00* Test Item Value Reference Range Interpretation Comments BUN/Creatinine Ratio (test code = 3097-3) 10 6-25 [facility] HospitalEstimat Glomerular Filtration Rate 2018-11-29 06:48:00* Test Item Value Reference Range Interpretation Comments Estimat Glomerular Filtration Rate (test code = 402920295) > 60 >60 Ranges were taken from the National Kidney Disease Education Program and the [employer] literature.Reference ranges:60 or greater: Kjyeai86-17 ( for 3 consecutive months): Chronic kidney disease 15 or less: Kidney failureMemorial Hermann Southeast HospitalGlucose Ajikg5337-51-61 06:48:00* Test Item Value Reference Range Interpretation Comments Glucose Level (test code = QBD1538) 128 74-118 H [facility] HospitalCalcium Tdyoq7794-50-17 06:48:00* Test Item Value Reference Range Interpretation Comments Calcium Level (test code = 98459-0) 9.2 8.4-10.2 [facility] HospitalTotal Urvxucszs3739-20-37 06:48:00* Test Item Value Reference Range Interpretation Comments Total Bilirubin (test code = 1975-2) 0.4 0.2-1.2 [facility] HospitalAspartate Amino Transf (AST/SGOT) 2018-11-29 06:48:00* Test Item Value Reference Range Interpretation Comments Aspartate Amino Transf (AST/SGOT) (test code = Aspartate Amino Transf (AST/SGOT)) 42 5-34 H [facility] HospitalAlanine Aminotransferase (ALT/SGPT) 2018-11-29 06:48:00* Test Item Value Reference Range Interpretation Comments Alanine Aminotransferase (ALT/SGPT) (test code = 1742-6) 76 0-55 H [facility] HospitalTotal Qxdajzg6631-49-22 06:48:00* Test Item Value Reference Range Interpretation Comments Total Protein (test code = 2885-2) 6.9 6.5-8.1 [facility] HospitalAlbumin2019-08-14 06:48:00* Test Item Value Reference Range Interpretation Comments Albumin (test code = 1751-7) 3.3 3.5-5.0 L [facility] HospitalGlobulin2019-08-14 06:48:00* Test Item Value Reference Range Interpretation Comments Globulin (test code = 03611-8) 3.6 2.3-3.5 H [facility] HospitalAlbumin/Globulin Vphim5170-18-71 06:48:00 * Test Item Value Reference Range Interpretation Comments Albumin/Globulin Ratio (test code = 1759-0) 0.9 0.8-2.0 [facility] HospitalAlkaline Gjbxbbmzjvl6957-82-67 06:48:00* Test Item Value Reference Range Interpretation Comments Alkaline Phosphatase (test code = 6768-6) 324 40-150 H [facility] HospitalWhite Blood Nwwac8795-01-46 06:15:00* Test Item Value Reference Range Interpretation Comments White Blood Count (test code = 6690-2) 13.02 4.8-10.8 H [facility] HospitalRed Blood Jlqlo5202-57-25 06:15:00* Test Item Value Reference Range Interpretation Comments Red Blood Count (test code = 789-8) 4.28 3.6-5.1 [facility] HospitalHemoglobin2019-08-14 06:15:00* Test Item Value Reference Range Interpretation Comments Hemoglobin (test code = 78612-8) 14.8 12.0-16.0 [facility] HospitalHematocrit2019-08-14 06:15:00* Test Item Value Reference Range Interpretation Comments Hematocrit (test code = 4544-3) 46.0 34.2-44.1 H [facility] HospitalMean Corpuscular Vrcrhv8810-52-17 06:15:00* Test Item Value Reference Range Interpretation Comments Mean Corpuscular Volume (test code = 787-2) 107.5 81-99 H [facility] HospitalMean Corpuscular Efyqvhifeu8187-95-94 06:15:00* Test Item Value Reference Range Interpretation Comments Mean Corpuscular Hemoglobin (test code = 785-6) 34.6 28-32 H [facility] HospitalMean Corpuscular Hemoglobin Concent 2018-11-29 06:15:00* Test Item Value Reference Range Interpretation Comments Mean Corpuscular Hemoglobin Concent (test code = 786-4) 32.2 31-35 [facility] HospitalRed Cell Distribution Alzst7572-63-17 06:15:00* Test Item Value Reference Range Interpretation Comments Red Cell Distribution Width (test code = 02842-3) 14.1 11.7 -14.4 [facility] HospitalPlatelet Ccolh4613-12-78 06:15:00* Test Item Value Reference Range Interpretation Comments Platelet Count (test code = 777-3) 359 140-360 [facility] HospitalNeutrophils (%) (Auto)2018-11-29 06:15:00 * Test Item Value Reference Range Interpretation Comments Neutrophils (%) (Auto) (test code = 30950-2) 64.4 38.7-80.0 [facility] HospitalLymphocytes (%) (Auto)2018-11-29 06:15:00 * Test Item Value Reference Range Interpretation Comments Lymphocytes (%) (Auto) (test code = 736-9) 20.7 18.0-39.1 [facility] HospitalMonocytes (%) (Auto)2018-11-29 06:15:00* Test Item Value Reference Range Interpretation Comments Monocytes (%) (Auto) (test code = 5905-5) 8.8 4.4-11.3 [facility] HospitalEosinophils (%) (Auto)2018-11-29 06:15:00 * Test Item Value Reference Range Interpretation Comments Eosinophils (%) (Auto) (test code = 713-8) 3.1 0.0-6.0 [facility] HospitalBasophils (%) (Auto)2018-11-29 06:15:00* Test Item Value Reference Range Interpretation Comments Basophils (%) (Auto) (test code = 706-2) 1.2 0.0-1.0 H [facility] HospitalIM GRANULOCYTES %2018-11-29 06:15:00* Test Item Value Reference Range Interpretation Comments IM GRANULOCYTES % (test code = IM GRANULOCYTES %) 1.8 0.0- 1.0 H [facility] HospitalNeutrophils # (Auto)2018-11-29 06:15:00* Test Item Value Reference Range Interpretation Comments Neutrophils # (Auto) (test code = 751-8) 8.4 2.1-6.9 H [facility] HospitalLymphocytes # (Auto)2018-11-29 06:15:00* Test Item Value Reference Range Interpretation Comments Lymphocytes # (Auto) (test code = 32029-4) 2.7 1.0-3.2 [facility] HospitalMonocytes # (Auto)2018-11-29 06:15:00* Test Item Value Reference Range Interpretation Comments Monocytes # (Auto) (test code = 742-7) 1.2 0.2-0.8 H [facility] HospitalEosinophils # (Auto)2018-11-29 06:15:00* Test Item Value Reference Range Interpretation Comments Eosinophils # (Auto) (test code = 711-2) 0.4 0.0-0.4 [facility] HospitalBasophils # (Auto)2018-11-29 06:15:00* Test Item Value Reference Range Interpretation Comments Basophils # (Auto) (test code = 704-7) 0.2 0.0-0.1 H [facility] HospitalAbsolute Immature Granulocyte (auto 2018-11-29 06:15:00* Test Item Value Reference Range Interpretation Comments Absolute Immature Granulocyte (auto (anita t code = Absolute Immature Granulocyte (auto) 0.24 0-0.1 H [facility] HospitalUS EXTREMITY GONZALES MPL-LWA8174-03-09 16:58:00 [place] [address] Patient Name: ROSA ISELA BENITEZ MR #: [id number] : 1970 Age/Sex: 48/F Req #: [id number] Adm Physician: PARMINDER NARVAEZ MD Ordered by: KATIE BOWEN MD Report #: [id number] Location: MED/SURG2 Room/Bed: [facility] Procedure: [id number] US/US EXTREMITY GONZALES NON-VAS Exam Date: 11/24/18 [...] Interpretation Comments Blood Culture (test code = 88081762) NO GROWTH AFTER 5 DAYS, FINAL REPORT [facility] HospitalBlood Tvstflv4744-53-18 19:49:00* Test Item Value Reference Range Interpretation Comments Blood Culture (test code = 13938856) NO GROWTH AFTER 5 DAYS, FINAL REPORT [facility] HospitalUS RRSVN5054-96-77 08:05:00 [place] [address] Patient Name: ROSA ISELA BENITEZ MR #: [id number] : Age/Sex: 48/F Req #: [id number] Adm Physician: PARMINDER NARVAEZ MD Ordered by: PARMINDER NARVAEZ MD Report #: [id number] Location: MED/SURG2 Room/Bed: [facility] Procedure: [id number] US/US LIVER Exam Date: 11/21/18 Exam Time: [...] 8 COPY TO: JING NARVAEZ MD Magnesium Ncfrw9452-48-02 06:02:00* Test Item Value Reference Range Interpretation Comments Magnesium Level (test code = 07516-4) 2.1 1.3-2.1 [facility] XRAY LINE KBPYQJOUH7651-48-95 17:01:00 [facility] [address] [place] [address] Patient Name: ROSA ISELA BENITEZ MR #: [id number] : 1970 Age/Sex: 48/F Req #: [id number] Adm Physician: PARMINDER NARVAEZ MD Ordered by: PARMINDER NARVAEZ MD Report #: [id number] Location: MED/SURG2 Room/Bed: [facility] Procedure: [id number] DX/CHEST XRAY LINE PLACEMENT Exam Date: 11/18/18 [...] 5:02 PM Dictated By: ZURI OTTO MD Electronicall y Signed By: ZURI OTTO MD on 11/18/181701 Transcribed By: BRENDON on 1701 COPY TO: PARMINDER NARVAEZ MD CT FOOT RIGHT TQ9053-37-41 20:35:00 [facility] [address] [place] [address] Patient Name: ROSA ISELA BENITEZ MR #: [id number] : 1970 Age/Sex: 48/F Req #: [id number] Adm Physician: Ordered by: DIANNE BUSH MD Report #: [id number] Location: ER Room/Bed: Procedure: CT/CT FOOT RIGHT [...] COPY TO: DIANNE BUSH MD Lactic Acid Ifjwc1996-32-11 19:20:00* Test Item Value Reference Range Interpretation Comments Lactic Acid Level (test code = Lactic Acid Level) 17.3 4.5- 19.8 [facility] HospitalLactic Acid Ractz2407-32-10 19:20:00* Test Item Value Reference Range Interpretation Comments Lactic Acid Level (test code = Lactic Acid Level) 17.3 4.5- 19.8 [facility] HospitalFO[facility] RIGHT JJDSTIGG3150-47-19 18:47:00 [facility] [address] [place] [address] Patient Name: ROSA ISELA BENITEZ MR #: [id number] : Age/Sex: 48/F Req #: [id number] Adm Physician: Ordered by: DIANNE BUSH MD Report #: [id number] Location: ER Room/Bed: Procedure: 73 DX/FOOT RIGHT [...] 11/17/181848 COPY TO: DIANNE BUSH MD Bedside Srjlaft6250-07-89 07:45:00* Test Item Value Reference Range Interpretation Comments Bedside Glucose (test code = 52535-9) 137 70-120 H Meter ID: [id number] [facility] HospitalBlood Culture 2018-04-14 16:36:00* Test Item Value Reference Range Interpretation Comments Blood Culture (test code = 72486020) NO GROWTH AFTER 5 DAYS, [facility] Xwwqn2047-24-07 05:18:00* Test Item Value Reference Range Interpretation Comments Sodium Level (test code = 2951-2) 136 136-145 [facility] HospitalPotassium Gedko7843-97-51 05:18:00* Test Item Value Reference Range Interpretation Comments Potassium Level (test code = 2823-3) 3.3 3.5-5.1 L [facility] HospitalChloride Rnwxq8087-65-67 05:18:00* Test Item Value Reference Range Interpretation Comments Chloride Level (test code = 2075-0) 99 98-107 [facility] HospitalCarbon Dioxide Sdeaf1767-47-46 05:18:00* Test Item Value Reference Range Interpretation Comments Carbon Dioxide Level (test code = 2028-9) 24 - [facility] HospitalAnion Mbl6265-39-71 05:18:00* Test Item Value Reference Range Interpretation Comments Anion Gap (test code = 37341-9) 16.3 8-16 H [facility] HospitalBlood Urea Qkerodmr1859-79-45 05:18:00* Test Item Value Reference Range Interpretation Comments Blood Urea Nitrogen (test code = 3094-0) 12 11-10 [facility] HospitalCreatinine2018-12-26 05:18:00* Test Item Value Reference Range Interpretation Comments Creatinine (test code = 2160-0) 0.78 0.57-1.11 [facility] HospitalBUN/Creatinine Gggdw2979-31-99 05:18:00* Test Item Value Reference Range Interpretation Comments BUN/Creatinine Ratio (test code = 3097-3) 15 10-10 [facility] HospitalEstimat Glomerular Filtration Rate 2018-04-12 05:18:00* Test Item Value Reference Range Interpretation Comments Estimat Glomerular Filtration Rate (test code = 481306357) > 60 >60 Ranges were taken from the National Kidney Disease Education Program and the [facility] Kidney Foundation literature.Reference ranges:60 or greater: Rmdfag42-85 ( for 3 consecutive months): Chronic kidney disease 15 or less: Kidney failureMemorial Hermann Southeast HospitalGlucose Uasoe0518-84-76 05:18:00* Test Item Value Reference Range Interpretation Comments Glucose Level (test code = KYC0987) 216 74-118 H [facility] HospitalCalcium Dufqn9051-81-83 05:18:00* Test Item Value Reference Range Interpretation Comments Calcium Level (test code = 08435-7) 9.3 8.4-10.2 [facility] HospitalTotal Xlzqiahsb4266-27-80 05:18:00* Test Item Value Reference Range Interpretation Comments Total Bilirubin (test code = 1975-2) 0.4 0.2-1.2 [facility] HospitalAspartate Amino Transf (AST/SGOT) 2018-04-12 05:18:00* Test Item Value Reference Range Interpretation Comments Aspartate Amino Transf (AST/SGOT) (test code = Aspartate Amino Transf (AST/SGOT)) 24 5-34 [facility] HospitalAlanine Aminotransferase (ALT/SGPT) 2018-04-12 05:18:00* Test Item Value Reference Range Interpretation Comments Alanine Aminotransferase (ALT/SGPT) (test code = 1742-6) 114 0-55 H [facility] Tjbtqoo2378-86-94 05:18:00* Test Item Value Reference Range Interpretation Comments Total Protein (test code = 2885-2) 6.8 6.5-8.1 [facility] HospitalAlbumin2018-12-26 05:18:00* Test Item Value Reference Range Interpretation Comments Albumin (test code = 1751-7) 2.9 3.5-5.0 L [facility] HospitalGlobulin2018-12-26 05:18:00* Test Item Value Reference Range Interpretation Comments Globulin (test code = 17162-3) 3.9 2.3-3.5 H [facility] HospitalAlbumin/Globulin Dzyfs2396-33-72 05:18:00 * Test Item Value Reference Range Interpretation Comments Albumin/Globulin Ratio (test code = 1759-0) 0.7 0.8-2.0 L [facility] HospitalAlkaline Qwlyrbdlayt8490-19-38 05:18:00* Test Item Value Reference Range Interpretation Comments Alkaline Phosphatase (test code = 6768-6) 98 40-150 [facility] HospitalTriglycerides Rcetq1889-93-21 05:18:00* Test Item Value Reference Range Interpretation Comments Triglycerides Level (test code = 2571-8) 133 0-149 [facility] HospitalCholesterol Mwkra8862-98-40 05:18:00* Test Item Value Reference Range Interpretation Comments Cholesterol Level (test code = 2093-3) 220 0-199 H Less than 200 mg/dL Low Oaal185 - 239 mg/dL Borderline Vxcj360 m g/dl and greater High Risk [facility] HospitalLDL Cpajgdxrrgn6389-16-85 05:18:00* Test Item Value Reference Range Interpretation Comments LDL Cholesterol (test code = 2089-1) 139 60-130 H [facility] Jvzauxikwpj4446-52-99 05:18:00* Test Item Value Reference Range Interpretation Comments HDL Cholesterol (test code = 2085-9) 54 40-60 [facility] HospitalCholesterol/HDL Irpvc9297-10-98 05:18:00 * Test Item Value Reference Range Interpretation Comments Cholesterol/HDL Ratio (test code = 9830-1) 4.1 3.0-3.6 H [facility] HospitalTriglycerides Uyyqf2861-38-87 05:18:00* Test Item Value Reference Range Interpretation Comments Triglycerides Level (test code = 2571-8) 133 0-149 [facility] HospitalCholesterol Itwbe2795-97-94 05:18:00* Test Item Value Reference Range Interpretation Comments Cholesterol Level (test code = 2093-3) 220 0-199 H Less than 200 mg/dL Low Wsdy925 - 239 mg/dL Borderline Masv304 m g/dl and greater High Risk [facility] HospitalLDL Mhlcyoprzxs8871-09-42 05:18:00* Test Item Value Reference Range Interpretation Comments LDL Cholesterol (test code = 2089-1) 139 60-130 H [facility] Uhkjiordyym2697-95-63 05:18:00* Test Item Value Reference Range Interpretation Comments HDL Cholesterol (test code = 2085-9) 54 40-60 [facility] HospitalCholesterol/HDL Cbuwc7655-39-29 05:18:00 * Test Item Value Reference Range Interpretation Comments Cholesterol/HDL Ratio (test code = 9830-1) 4.1 3.0-3.6 H [facility] HospitalTriglycerides Ddfjy0645-02-00 05:18:00* Test Item Value Reference Range Interpretation Comments Triglycerides Level (test code = 2571-8) 133 0-149 [facility] HospitalCholesterol Xlpfm4027-18-78 05:18:00* Test Item Value Reference Range Interpretation Comments Cholesterol Level (test code = 2093-3) 220 0-199 H Less than 200 mg/dL Low Qoez217 - 239 mg/dL Borderline Jehk828 m g/dl and greater High Risk [facility] HospitalLDL Uhkgermzcbv3427-37-84 05:18:00* Test Item Value Reference Range Interpretation Comments LDL Cholesterol (test code = 2089-1) 139 60-130 H [facility] HospitalHDL Xwkkydrpiuz3865-23-22 05:18:00* Test Item Value Reference Range Interpretation Comments HDL Cholesterol (test code = 2085-9) 54 40-60 [facility] HospitalCholesterol/HDL Amvku6150-59-87 05:18:00 * Test Item Value Reference Range Interpretation Comments Cholesterol/HDL Ratio (test code = 9830-1) 4.1 3.0-3.6 H [facility] HospitalWhite Blood Kfazq4206-96-95 04:52:00* Test Item Value Reference Range Interpretation Comments White Blood Count (test code = 6690-2) 12.93 4.8-10.8 H [facility] HospitalRed Blood Qdvmm3935-24-40 04:52:00* Test Item Value Reference Range Interpretation Comments Red Blood Count (test code = 789-8) 3.90 3.6-5.1 [facility] HospitalHemoglobin2018-12-26 04:52:00* Test Item Value Reference Range Interpretation Comments Hemoglobin (test code = 78819-8) 12.6 12.0-16.0 [facility] HospitalHematocrit2018-12-26 04:52:00* Test Item Value Reference Range Interpretation Comments Hematocrit (test code = 4544-3) 37.1 34.2-44.1 [facility] HospitalMean Corpuscular Ptwiwj8100-95-94 04:52:00* Test Item Value Reference Range Interpretation Comments Mean Corpuscular Volume (test code = 787-2) 95.1 81-99 [facility] HospitalMean Corpuscular Epxotexlzo7724-20-44 04:52:00* Test Item Value Reference Range Interpretation Comments Mean Corpuscular Hemoglobin (test code = 785-6) 32.3 28-32 H [facility] HospitalMean Corpuscular Hemoglobin Concent 2018-04-12 04:52:00* Test Item Value Reference Range Interpretation Comments Mean Corpuscular Hemoglobin Concent (test code = 786-4) 34.0 31-35 [facility] HospitalRed Cell Distribution Alxeb9829-63-00 04:52:00* Test Item Value Reference Range Interpretation Comments Red Cell Distribution Width (test code = 97607-1) 14.2 11.7 -14.4 [facility] HospitalPlatelet Ppeff8861-51-71 04:52:00* Test Item Value Reference Range Interpretation Comments Platelet Count (test code = 777-3) 413 140-360 H [facility] HospitalNeutrophils (%) (Auto)2018-04-12 04:52:00 * Test Item Value Reference Range Interpretation Comments Neutrophils (%) (Auto) (test code = 06461-4) 88.2 38.7-80.0 H [facility] HospitalLymphocytes (%) (Auto)2018-04-12 04:52:00 * Test Item Value Reference Range Interpretation Comments Lymphocytes (%) (Auto) (test code = 736-9) 8.7 18.0-39.1 L [facility] HospitalMonocytes (%) (Auto)2018-04-12 04:52:00* Test Item Value Reference Range Interpretation Comments Monocytes (%) (Auto) (test code = 5905-5) 1.2 4.4-11.3 L [facility] HospitalEosinophils (%) (Auto)2018-04-12 04:52:00 * Test Item Value Reference Range Interpretation Comments Eosinophils (%) (Auto) (test code = 713-8) 0.0 0.0-6.0 [facility] HospitalBasophils (%) (Auto)2018-04-12 04:52:00* Test Item Value Reference Range Interpretation Comments Basophils (%) (Auto) (test code = 706-2) 0.2 0.0-1.0 [facility] HospitalIM GRANULOCYTES %2018-04-12 04:52:00* Test Item Value Reference Range Interpretation Comments IM GRANULOCYTES % (test code = IM GRANULOCYTES %) 1.7 0.0- 1.0 H [facility] HospitalNeutrophils # (Auto)2018-04-12 04:52:00* Test Item Value Reference Range Interpretation Comments Neutrophils # (Auto) (test code = 751-8) 11.4 2.1-6.9 H [facility] HospitalLymphocytes # (Auto)2018-04-12 04:52:00* Test Item Value Reference Range Interpretation Comments Lymphocytes # (Auto) (test code = 78017-2) 1.1 1.0-3.2 [facility] HospitalMonocytes # (Auto)2018-04-12 04:52:00* Test Item Value Reference Range Interpretation Comments Monocytes # (Auto) (test code = 742-7) 0.2 0.2-0.8 [facility] HospitalEosinophils # (Auto)2018-04-12 04:52:00* Test Item Value Reference Range Interpretation Comments Eosinophils # (Auto) (test code = 711-2) 0.0 0.0-0.4 [facility] HospitalBasophils # (Auto)2018-04-12 04:52:00* Test Item Value Reference Range Interpretation Comments Basophils # (Auto) (test code = 704-7) 0.0 0.0-0.1 [facility] HospitalAbsolute Immature Granulocyte (auto 2018-04-12 04:52:00* Test Item Value Reference Range Interpretation Comments Absolute Immature Granulocyte (auto (anita t code = Absolute Immature Granulocyte (auto) 0.22 0-0.1 H [facility] HospitalCHEST XRAY LINE LVBLYOOPS8749-88-88 13:49:00 [facility] [address] [place] [address] Patient Name: ROSA ISELA BENITEZ MR #: [id number] : 1970 Age/Sex: 48/F Req #: [id number] Adm Physician: PARMINDER NARVAEZ MD Ordered by: KATIE BOWEN MD Report #: [id number] Location: [facility] Room/Bed: [facility] Procedure: [id number] DX/CHEST XRAY LINE PLACEMENT Exam Date: 04/11/18 [...] 1:50 PM Dictated By: KIMANI CONLEY MD 49 Transcribed By: BRENDON on 04/11/181349 COPY TO: KATIE BOWEN MD Hemoglobin A1c Arqpcan8143-42-07 07:34:00* Test Item Value Reference Range Interpretation Comments Hemoglobin A1c Percent (test code = Hemoglobin A1c Percent) 7.0 4.0-7.0 [facility] HospitalHemoglobin A1c Knrggwn8598-12-71 07:34:00 * Test Item Value Reference Range Interpretation Comments Hemoglobin A1c Percent (test code = Hemoglobin A1c Percent) 7.0 4.0-7.0 [facility] HospitalHemoglobin A1c Uyrbseg7520-65-75 07:34:00 * Test Item Value Reference Range Interpretation Comments Hemoglobin A1c Percent (test code = Hemoglobin A1c Percent) 7.0 4.0-7.0 [facility] A IgM Wqluvovd0146-45-55 06:27:00* Test Item Value Reference Range Interpretation Comments Hepatitis A IgM Antibody (test code = 90556-6) Negative Negativ e [facility] B Surface Icvcavh6988-51-19 06:27:00* Test Item Value Reference Range Interpretation Comments Hepatitis B Surface Antigen (test code = 5196-1) Negative Negat damien [facility] B Core IgM Auyyqvoy4429-40-80 06:27:00* Test Item Value Reference Range Interpretation Comments Hepatitis B Core IgM Antibody (test code = 73352-8) Negative Ne gative [facility] C Bkysqjzv7384-66-68 06:27:00* Test Item Value Reference Range Interpretation Comments Hepatitis C Antibody (test code = 20881-8) 0.1 0.0-0.9 Negative: < 0.8 Indeterminate: 0.8 - 0.9 Positive: > 0.9 The CDC recommends that a positive HCV antibody result be followed up with a HCV Nucleic Acid Amplification test (427030).Performed at: [facility] [address] [place], [place] [id number] Director: Prasanna Mishra MD, Phone: [phone] Hospital of [facility] A IgM Antibody 2018-04-11 06:27:00* Test Item Value Reference Range Interpretation Comments Hepatitis A IgM Antibody (test code = 17506-2) Negative Negativ e [facility] B Surface Qxeoqql4132-53-45 06:27:00* Test Item Value Reference Range Interpretation Comments Hepatitis B Surface Antigen (test code = 5196-1) Negative Negat damien [facility] B Core IgM Rttdcglv8487-17-65 06:27:00* Test Item Value Reference Range Interpretation Comments Hepatitis B Core IgM Antibody (test code = 34118-4) Negative Ne [facility] [place] [facility] Rasimrqs6793-23-27 06:27:00* Test Item Value Reference Range Interpretation Comments Hepatitis C Antibody (test code = 38005-9) 0.1 0.0-0.9 Negative: < 0.8 Indeterminate: 0.8 - 0.9 Positive: > 0.9 The CDC recommends that a positive HCV antibody result be followed up with a HCV Nucleic Acid Amplification test (332998).Performed at: [facility] [address] [place], [place] [id number] Director: Prasanna Mishra MD, Phone: [phone] A IgM Antibody 2018-04-11 06:27:00* Test Item Value Reference Range Interpretation Comments Hepatitis A IgM Antibody (test code = 26536-4) Negative Negativ e [facility] B Surface Bgowgtd3702-91-23 06:27:00* Test Item Value Reference Range Interpretation Comments Hepatitis B Surface Antigen (test code = 5196-1) [facility] Nuiofccr8782-67-85 06:27:00* Test Item Value Reference Range Interpretation Comments Hepatitis B Core IgM Antibody (test code = 36430-9) Negative Ne [facility] Lckquduh8361-98-87 06:27:00* Test Item Value Reference Range Interpretation Comments Hepatitis C Antibody (test code = 41895-3) 0.1 0.0-0.9 Negative: < 0.8 Indeterminate: 0.8 - 0.9 Positive: > 0.9 The CDC recommends that a positive HCV antibody result be followed up with a HCV Nucleic Acid Amplification test (788759).Performed at: [facility] [address] [place], [place] [id number] Director: Prasanna Mishra MD, Phone: [phone] Hermann [facility] HospitalUS GEWAI1062-94-17 13:19:00 [facility] [address] [place] [address] Patient Name: ROSA ISELA BENITEZ MR #: [id number] : Age/Sex: 48/F Req #: [id number] Adm Physician: PARMINDER NARVAEZ MD Ordered by: IDA BHANDARI MD Report #: [id number] Location: MED/SURG2 Room/Bed: [facility] Procedure: US/US LIVER Exam Date: Exam Time: [...] 2 COPY TO: IDA BHANDARI MD Urine [id number] 19:14:00* Test Item Value Reference Range Interpretation Comments Urine WBC (test code = 5821-4) 0-5 0-5 [facility] PZF7643-68-32 19:14:00* Test Item Value Reference Range Interpretation Comments Urine RBC (test code = 24435-9) 0-5 0-5 [facility] Xycaxuel3118-41-09 19:14:00* Test Item Value Reference Range Interpretation Comments Urine Bacteria (test code = 95821-7) NONE NONE [facility] Epithelial Vbink8331-70-87 19:14:00 * Test Item Value Reference Range Interpretation Comments Urine Epithelial Cells (test code = 71128-3) MODERATE NONE [facility] NZF6634-13-06 19:14:00* Test Item Value Reference Range Interpretation Comments Urine WBC (test code = 5821-4) 0-5 0-5 [facility] [id number] 19:14:00* Test Item Value Reference Range Interpretation Comments Urine RBC (test code = 69652-7) 0-5 0-5 [facility] Dijqkbxm2664-91-40 19:14:00* Test Item Value Reference Range Interpretation Comments Urine Bacteria (test code = 14533-0) NONE NONE [facility] Epithelial Zygxh3572-51-23 19:14:00 * Test Item Value Reference Range Interpretation Comments Urine Epithelial Cells (test code = 92915-3) MODERATE NONE [facility] Vqjxm4343-90-07 19:04:00* Test Item Value Reference Range Interpretation Comments Urine Color (test code = 5778-6) YELLOW YELLOW [facility] Hospital[facility] Tlitiqf6550-74-80 19:04:00* Test Item Value Reference Range Interpretation Comments Urine Clarity (test code = 11209-1) CLEAR CLEAR [facility] Specific Rsfpdcd3293-78-73 19:04:00 * Test Item Value Reference Range Interpretation Comments Urine Specific [place] (test code = 5811-5) 1.010 1.010-1.02 5 [facility] Hospital[facility] lV4388-94-74 19:04:00* Test Item Value Reference Range Interpretation Comments Urine pH (test code = 82484-3) 6.5 5-7 [facility] Leukocyte Tmzvwwer3463-21-75 19:04:00* Test Item Value Reference Range Interpretation Comments Urine Leukocyte Esterase (test code = 5799-2) NEGATIVE NEGATIVE [facility] Tocbouy0991-87-95 19:04:00* Test Item Value Reference Range Interpretation Comments Urine Nitrite (test code = 78099-8) NEGATIVE NEGATIVE [facility] Jnjtbct0947-34-64 19:04:00* Test Item Value Reference Range Interpretation Comments Urine Protein (test code = 5804-0) NEGATIVE NEGATIVE [facility] Hospital[facility] Glucose (UA)2018-04-09 19:04:00* Test Item Value Reference Range Interpretation Comments Urine Glucose (UA) (test code = 2349-9) NEGATIVE NEGATIVE [facility] HospitalU[facility] Ecknrit5807-66-50 19:04:00* Test Item Value Reference Range Interpretation Comments Urine Ketones (test code = 09374-0) NEGATIVE NEGATIVE [facility] Ayrrrgesdcun6509-97-24 19:04:00* Test Item Value Reference Range Interpretation Comments Urine Urobilinogen (test code = 23607-8) 0.2 0.2-1 [facility] Sbrqfxxhf8245-30-59 19:04:00* Test Item Value Reference Range Interpretation Comments Urine Bilirubin (test code = 1978-6) NEGATIVE NEGATIVE [facility] Atpin3168-56-96 19:04:00* Test Item Value Reference Range Interpretation Comments Urine Blood (test code = 10928-8) NEGATIVE NEGATIVE [facility] Hospital[facility] Glcul1255-68-22 19:04:00* Test Item Value Reference Range Interpretation Comments Urine Color (test code = 5778-6) YELLOW YELLOW [facility] Lgpzgvi7919-35-55 19:04:00* Test Item Value Reference Range Interpretation Comments Urine Clarity (test code = 79545-3) CLEAR CLEAR [facility] Hospital[facility] Specific Aabpyqj1444-50-17 19:04:00 * Test Item Value Reference Range Interpretation Comments Urine Specific [place] (test code = 5811-5) 1.010 1.010-1.02 5 [facility] HospitalU[facility] uT0256-96-60 19:04:00* Test Item Value Reference Range Interpretation Comments Urine pH (test code = 44366-3) 6.5 5-7 [facility] Leukocyte Tgkcrrve6115-69-56 19:04:00* Test Item Value Reference Range Interpretation Comments Urine Leukocyte Esterase (test code = 5799-2) NEGATIVE NEGATIVE [facility] Hospital[facility] Ocffgxc5259-32-44 19:04:00* Test Item Value Reference Range Interpretation Comments Urine Nitrite (test code = 58863-8) NEGATIVE NEGATIVE [facility] HospitalU[facility] Wilclfu4077-26-59 19:04:00* Test Item Value Reference Range Interpretation Comments Urine Protein (test code = 5804-0) NEGATIVE NEGATIVE [facility] Glucose (UA)2018-04-09 19:04:00* Test Item Value Reference Range Interpretation Comments Urine Glucose (UA) (test code = 2349-9) NEGATIVE NEGATIVE [facility] HospitalU[facility] Mctszlj4306-32-82 19:04:00* Test Item Value Reference Range Interpretation Comments Urine Ketones (test code = 97293-5) NEGATIVE NEGATIVE [facility] Raxqgquuawub3620-68-35 19:04:00* Test Item Value Reference Range Interpretation Comments Urine Urobilinogen (test code = 14059-7) 0.2 0.2-1 [facility] Hospital[facility] Msmfqrbnj1323-28-76 19:04:00* Test Item Value Reference Range Interpretation Comments Urine Bilirubin (test code = 1978-6) NEGATIVE NEGATIVE [facility] Hospital[facility] Teiio9140-44-03 19:04:00* Test Item Value Reference Range Interpretation Comments Urine Blood (test code = 46535-3) NEGATIVE NEGATIVE [facility] HospitalLactic Acid Nqopm3987-95-42 16:51:00* Test Item Value Reference Range Interpretation Comments Lactic Acid Level (test code = Lactic Acid Level) 12.6 4.5- 19.8 [facility] HospitalCreatine Kinase LE9796-21-44 16:32:00* Test Item Value Reference Range Interpretation Comments Creatine Kinase MB (test code = 93008-6) 1.70 0-5.0 [facility] HospitalTroponin [id number] 16:32:00* Test Item Value Reference Range Interpretation Comments Troponin I (test code = WVJ4723) 0.197 0-0.300 [facility] HospitalCreatine Kinase YB8286-24-17 16:32:00* Test Item Value Reference Range Interpretation Comments Creatine Kinase MB (test code = 09710-4) 1.70 0-5.0 [facility] HospitalTroponin K6270-27-35 16:32:00* Test Item Value Reference Range Interpretation Comments Troponin I (test code = IYF6631) 0.197 0-0.300 [facility] HospitalCreatine Uxkqui6892-48-57 16:25:00* Test Item Value Reference Range Interpretation Comments Creatine Kinase (test code = 2157-6) 32 29-168 [facility] HospitalLipase2018-12-23 16:25:00* Test Item Value Reference Range Interpretation Comments Lipase (test code = 3040-3) 9 8-78 [facility] HospitalCreatine Beimcq7588-26-62 16:25:00* Test Item Value Reference Range Interpretation Comments Creatine Kinase (test code = 2157-6) 32 29-168 [facility] HospitalLipase2018-12-23 16:25:00* Test Item Value Reference Range Interpretation Comments Lipase (test code = 3040-3) 9 [facility] HospitalLipase2018-12-23 16:25:00* Test Item Value Reference Range Interpretation Comments Lipase (test code = 3040-3) 9 [facility] HospitalActivated Partial Thromboplast Time 2018-04-09 16:14:00* Test Item Value Reference Range Interpretation Comments Activated Partial Thromboplast Time (test code = 04603-5) 29.1 23.8-35.5 [facility] HospitalActivated Partial Thromboplast Time 2018-04-09 16:14:00* Test Item Value Reference Range Interpretation Comments Activated Partial Thromboplast Time (test code = 28512-5) 29.1 23.8-35.5 [facility] HospitalActivated Partial Thromboplast Time 2018-04-09 16:14:00* Test Item Value Reference Range Interpretation Comments Activated Partial Thromboplast Time (test code = 21007-4) 29.1 23.8-35.5 [facility] HospitalProthrombin Navk7310-08-46 16:13:00* Test Item Value Reference Range Interpretation Comments Prothrombin Time (test code = 5902-2) 12.5 11.9-14.5 [facility] HospitalProthromb Time International Ratio 2018-04-09 16:13:00* Test Item Value Reference Range Interpretation Comments Prothromb Time International Ratio (test code = 6301-6) 0.86 Oral Anticoagulant Therapy INR Values:1. Low Intensity Therapy 1.5 - 2.02 . Moderate Intensity Therapy 2.0 - 3.03. High Intensity Therapy(1) 2.5 - 3. 54. High Intensity Therapy(2) 3.0 - 4.05. Panic Value INR > 5.0 [facility] HospitalProthrombin Pzop5343-13-09 16:13:00* Test Item Value Reference Range Interpretation Comments Prothrombin Time (test code = 5902-2) 12.5 11.9-14.5 [facility] HospitalProthromb Time International Ratio 2018-04-09 16:13:00* Test Item Value Reference Range Interpretation Comments Prothromb Time International Ratio (test code = 6301-6) 0.86 Oral Anticoagulant Therapy INR Values:1. Low Intensity Therapy 1.5 - 2.02 . Moderate Intensity Therapy 2.0 - 3.03. High Intensity Therapy(1) 2.5 - 3. 54. High Intensity Therapy(2) 3.0 - 4.05. Panic Value INR > 5.0 [facility] HospitalProthrombin Bvmj4453-49-22 16:13:00* Test Item Value Reference Range Interpretation Comments Prothrombin Time (test code = 5902-2) 12.5 11.9-14.5 [facility] HospitalProthromb Time International Ratio 2018-04-09 16:13:00* Test Item Value Reference Range Interpretation Comments Prothromb Time International Ratio (test code = 6301-6) 0.86 Oral Anticoagulant Therapy INR Values:1. Low Intensity Therapy 1.5 - 2.02 . Moderate Intensity Therapy 2.0 - 3.03. High Intensity Therapy(1) 2.5 - 3. 54. High Intensity Therapy(2) 3.0 - 4.05. Panic Value INR > 5.0 [facility] HospitalBlood Yycbeoq2096-99-16 04:17:00* Test Item Value Reference Range Interpretation Comments Blood Culture (test code = 60653858) NO GROWTH AFTER 5 DAYS, FINAL REPORT [facility] HospitalBedside Qxgjubz3108-61-35 20:11:00* Test Item Value Reference Range Interpretation Comments Bedside Glucose (test code = 95702-4) 135 70-120 H Meter ID: [id number] [facility] HospitalDifferent[facility] Total Cells Digccru7596-27-68 08:02:00* Test Item Value Reference Range Interpretation Comments Differential Total Cells Counted (test code = Differen tial Total Cells Counted) 100 [facility] HospitalNeutrophils % (Manual)2017-10-10 08:02:00 * Test Item Value Reference Range Interpretation Comments Neutrophils % (Manual) (test code = 97988-4) 52 40-74 [facility] HospitalLymphocytes % (Manual)2017-10-10 08:02:00 * Test Item Value Reference Range Interpretation Comments Lymphocytes % (Manual) (test code = 737-7) 29 19-48 [facility] HospitalMonocytes % (Manual)2017-10-10 08:02:00* Test Item Value Reference Range Interpretation Comments Monocytes % (Manual) (test code = 744-3) 9 3.4-9.0 [facility] HospitalEosinophils % (Manual)2017-10-10 08:02:00 * Test Item Value Reference Range Interpretation Comments Eosinophils % (Manual) (test code = 714-6) 2 0-7 [facility] HospitalMetamyelocytes %2017-10-10 08:02:00* Test Item Value Reference Range Interpretation Comments Metamyelocytes % (test code = 740-1) 3 0-0 H [facility] HospitalMyelocytes %2017-10-10 08:02:00* Test Item Value Reference Range Interpretation Comments Myelocytes % (test code = 749-2) 5 0-0 H [facility] HospitalPlatelet Hnlvluwk3536-53-16 08:02:00* Test Item Value Reference Range Interpretation Comments Platelet Estimate (test code = 94571-3) ADEQUATE [facility] HospitalPlatelet Morphology Dxflymb3328-00-90 08:02:00* Test Item Value Reference Range Interpretation Comments Platelet Morphology Comment (test code = 97106-3) NORMAL [facility] HospitalRed Cell Morphology Hbiygcs9125-57-73 08:02:00* Test Item Value Reference Range Interpretation Comments Red Cell Morphology Comment (test code = 6742-1) NORMAL [facility] HospitalDifferential Total Cells Counted 2017-10-10 08:02:00* Test Item Value Reference Range Interpretation Comments Differential Total Cells Counted (test code = Zain tial Total Cells Counted) 100 [facility] HospitalNeutrophils % (Manual)2017-10-10 08:02:00 * Test Item Value Reference Range Interpretation Comments Neutrophils % (Manual) (test code = 62258-7) 52 40-74 [facility] HospitalLymphocytes % (Manual)2017-10-10 08:02:00 * Test Item Value Reference Range Interpretation Comments Lymphocytes % (Manual) (test code = 737-7) 29 19-48 [facility] HospitalMonocytes % (Manual)2017-10-10 08:02:00* Test Item Value Reference Range Interpretation Comments Monocytes % (Manual) (test code = 744-3) 9 3.4-9.0 [facility] HospitalEosinophils % (Manual)2017-10-10 08:02:00 * Test Item Value Reference Range Interpretation Comments Eosinophils % (Manual) (test code = 714-6) 2 0-7 [facility] HospitalMetamyelocytes %2017-10-10 08:02:00* Test Item Value Reference Range Interpretation Comments Metamyelocytes % (test code = 740-1) 3 0-0 H [facility] HospitalMyelocytes %2017-10-10 08:02:00* Test Item Value Reference Range Interpretation Comments Myelocytes % (test code = 749-2) 5 0-0 H [facility] HospitalPlatelet Qzdaqoiz5265-06-73 08:02:00* Test Item Value Reference Range Interpretation Comments Platelet Estimate (test code = 10840-1) ADEQUATE [facility] HospitalPlatelet Morphology Ajmltyv8114-13-78 08:02:00* Test Item Value Reference Range Interpretation Comments Platelet Morphology Comment (test code = 46819-3) NORMAL [facility] HospitalRed Cell Morphology Jppfnlj2600-25-79 08:02:00* Test Item Value Reference Range Interpretation Comments Red Cell Morphology Comment (test code = 6742-1) NORMAL [facility] HospitalWhite Blood Dybzn5181-93-72 07:05:00* Test Item Value Reference Range Interpretation Comments White Blood Count (test code = 6690-2) 13.59 4.8-10.8 H [facility] HospitalRed Blood Quhvk9547-53-27 07:05:00* Test Item Value Reference Range Interpretation Comments Red Blood Count (test code = 789-8) 3.76 3.6-5.1 [facility] HospitalHemoglobin2018-06-25 07:05:00* Test Item Value Reference Range Interpretation Comments Hemoglobin (test code = 39707-7) 12.5 12.0-16.0 [facility] HospitalHematocrit2018-06-25 07:05:00* Test Item Value Reference Range Interpretation Comments Hematocrit (test code = 4544-3) 36.4 34.2-44.1 [facility] HospitalMean Corpuscular Ueenus6716-43-46 07:05:00* Test Item Value Reference Range Interpretation Comments Mean Corpuscular Volume (test code = 787-2) 96.8 81-99 [facility] HospitalMean Corpuscular Dznrquhudp2926-93-30 07:05:00* Test Item Value Reference Range Interpretation Comments Mean Corpuscular Hemoglobin (test code = 785-6) 33.2 28-32 H [facility] HospitalMean Corpuscular Hemoglobin Concent 2017-10-10 07:05:00* Test Item Value Reference Range Interpretation Comments Mean Corpuscular Hemoglobin Concent (test code = 786-4) 34.3 31-35 [facility] HospitalRed Cell Distribution Aumxm8353-81-00 07:05:00* Test Item Value Reference Range Interpretation Comments Red Cell Distribution Width (test code = 31791-6) 14.9 11.7 -14.4 H [facility] HospitalPlatelet Cupwp6356-35-55 07:05:00* Test Item Value Reference Range Interpretation Comments Platelet Count (test code = 777-3) 371 140-360 H [facility] HospitalNeutrophils (%) (Auto)2017-10-10 07:05:00 * Test Item Value Reference Range Interpretation Comments Neutrophils (%) (Auto) (test code = 69624-6) 59.8 38.7-80.0 [facility] HospitalLymphocytes (%) (Auto)2017-10-10 07:05:00 * Test Item Value Reference Range Interpretation Comments Lymphocytes (%) (Auto) (test code = 736-9) 25.1 18.0-39.1 [facility] HospitalMonocytes (%) (Auto)2017-10-10 07:05:00* Test Item Value Reference Range Interpretation Comments Monocytes (%) (Auto) (test code = 5905-5) 7.7 4.4-11.3 [facility] HospitalEosinophils (%) (Auto)2017-10-10 07:05:00 * Test Item Value Reference Range Interpretation Comments Eosinophils (%) (Auto) (test code = 713-8) 0.7 0.0-6.0 [facility] HospitalBasophils (%) (Auto)2017-10-10 07:05:00* Test Item Value Reference Range Interpretation Comments Basophils (%) (Auto) (test code = 706-2) 0.9 0.0-1.0 [facility] HospitalIM GRANULOCYTES %2017-10-10 07:05:00* Test Item Value Reference Range Interpretation Comments IM GRANULOCYTES % (test code = IM GRANULOCYTES %) 5.8 0.0- 1.0 H [facility] HospitalNeutrophils # (Auto)2017-10-10 07:05:00* Test Item Value Reference Range Interpretation Comments Neutrophils # (Auto) (test code = 751-8) 8.1 2.1-6.9 H [facility] HospitalLymphocytes # (Auto)2017-10-10 07:05:00* Test Item Value Reference Range Interpretation Comments Lymphocytes # (Auto) (test code = 78415-0) 3.4 1.0-3.2 H [facility] HospitalMonocytes # (Auto)2017-10-10 07:05:00* Test Item Value Reference Range Interpretation Comments Monocytes # (Auto) (test code = 742-7) 1.1 0.2-0.8 H [facility] HospitalEosinophils # (Auto)2017-10-10 07:05:00* Test Item Value Reference Range Interpretation Comments Eosinophils # (Auto) (test code = 711-2) 0.1 0.0-0.4 [facility] HospitalBasophils # (Auto)2017-10-10 07:05:00* Test Item Value Reference Range Interpretation Comments Basophils # (Auto) (test code = 704-7) 0.1 0.0-0.1 [facility] HospitalAbsolute Immature Granulocyte (auto 2017-10-10 07:05:00* Test Item Value Reference Range Interpretation Comments Absolute Immature Granulocyte (auto (anita t code = Absolute Immature Granulocyte (auto) 0.79 0-0.1 [facility] Kmvoq4430-08-94 08:10:00* Test Item Value Reference Range Interpretation Comments Sodium Level (test code = 2951-2) 139 136-145 [facility] HospitalPotassium Misyt7980-23-45 08:10:00* Test Item Value Reference Range Interpretation Comments Potassium Level (test code = 2823-3) 3.8 3.5-5.1 [facility] HospitalChloride Adabo3003-52-73 08:10:00* Test Item Value Reference Range Interpretation Comments Chloride Level (test code = 2075-0) 104 98-107 [facility] HospitalCarbon Dioxide Aebsp5952-66-82 08:10:00* Test Item Value Reference Range Interpretation Comments Carbon Dioxide Level (test code = 2028-9) 24 22-29 [facility] HospitalAnion Klu9394-16-76 08:10:00* Test Item Value Reference Range Interpretation Comments Anion Gap (test code = 45655-4) 14.8 8-16 [facility] HospitalBlood Urea Gjcejyyj7236-04-16 08:10:00* Test Item Value Reference Range Interpretation Comments Blood Urea Nitrogen (test code = 3094-0) 18 7-26 [facility] HospitalCreatinine2018-06-24 08:10:00* Test Item Value Reference Range Interpretation Comments Creatinine (test code = 2160-0) 0.78 0.57-1.11 [facility] HospitalBUN/Creatinine Aguzo8612-63-83 08:10:00* Test Item Value Reference Range Interpretation Comments BUN/Creatinine Ratio (test code = 3097-3) 23 6-25 [facility] HospitalEstimat Glomerular Filtration Rate 2017-10-09 08:10:00* Test Item Value Reference Range Interpretation Comments Estimat Glomerular Filtration Rate (test code = 65261-8) 60- >60 Ranges were taken from the National Kidney Disease Education Program and the [employer] literature.Reference ranges:60 or greater: Gmtlmv16-45 ( for 3 consecutive months): Chronic kidney disease 15 or less: Kidney failureMemorial Hermann Southeast HospitalGlucose Imrzz1862-57-46 08:10:00* Test Item Value Reference Range Interpretation Comments Glucose Level (test code = DFD6114) 125 74-118 H [facility] HospitalCalcium Ndipr9326-49-73 08:10:00* Test Item Value Reference Range Interpretation Comments Calcium Level (test code = 38466-8) 9.2 8.4-10.2 [facility] HospitalTotal Drfthitkm7542-66-93 08:10:00* Test Item Value Reference Range Interpretation Comments Total Bilirubin (test code = 1975-2) 0.3 0.2-1.2 [facility] HospitalAspartate Amino Transf (AST/SGOT) 2017-10-09 08:10:00* Test Item Value Reference Range Interpretation Comments Aspartate Amino Transf (AST/SGOT) (test code = Aspartate Amino Transf (AST/SGOT)) 22 5-34 [facility] HospitalAlanine Aminotransferase (ALT/SGPT) 2017-10-09 08:10:00* Test Item Value Reference Range Interpretation Comments Alanine Aminotransferase (ALT/SGPT) (test code = 1742-6) 43 0-55 [facility] HospitalTotal Nrgxysp4393-06-94 08:10:00* Test Item Value Reference Range Interpretation Comments Total Protein (test code = 2885-2) 6.6 6.5-8.1 [facility] HospitalAlbumin2018-06-24 08:10:00* Test Item Value Reference Range Interpretation Comments Albumin (test code = 1751-7) 3.1 3.5-5.0 L [facility] HospitalGlobulin2018-06-24 08:10:00* Test Item Value Reference Range Interpretation Comments Globulin (test code = 06506-1) 3.5 2.3-3.5 [facility] HospitalAlbumin/Globulin Xqwds9187-02-79 08:10:00 * Test Item Value Reference Range Interpretation Comments Albumin/Globulin Ratio (test code = 1759-0) 0.9 0.8-2.0 [facility] HospitalAlkaline Lzcktfirdgj1281-04-77 08:10:00* Test Item Value Reference Range Interpretation Comments Alkaline Phosphatase (test code = 6768-6) 76 40-150 [facility] HospitalTriglycerides Ayjht4792-24-65 08:10:00* Test Item Value Reference Range Interpretation Comments Triglycerides Level (test code = 2571-8) 677 0-149 H [facility] [id number] 08:10:00* Test Item Value Reference Range Interpretation Comments Cholesterol Level (test code = 2093-3) 267 0-199 H Less than 200 mg/dL Low Sqlx670 - 239 mg/dL Borderline Wnlh122 m g/dl and greater High Risk [facility] HospitalHDL [id number] 08:10:00* Test Item Value Reference Range Interpretation Comments HDL Cholesterol (test code = 2085-9) 50 40-60 [facility]Ch[facility]/HDL [id number] 08:10:00 * Test Item Value Reference Range Interpretation Comments Cholesterol/HDL Ratio (test code = 9830-1) 5.3 3.0-3.6 H [facility] HospitalCreatine Kinase [id number] 19:38:00* Test Item Value Reference Range Interpretation Comments Creatine Kinase MB (test code = 78710-4) 2.40 0-5.0 [facility] HospitalTroponin [id number] 19:38:00* Test Item Value Reference Range Interpretation Comments Troponin I (test code = UPB7180) -0.001 0-0.300 [facility]Creat[facility] [id number] 19:28:00* Test Item Value Reference Range Interpretation Comments Creatine Kinase (test code = 2157-6) 84 29-168 [facility] Leukocyte Wwzzrrdi8325-55-08 14:17:00* Test Item Value Reference Range Interpretation Comments Urine Leukocyte Esterase (test code = 5799-2) 1+ NEGATIVE H --- 10/08/17 1416 ---LEUKO ESTERASE previously reported as: NEGATIVE [facility] [id number] 14:13:00* Test Item Value Reference Range Interpretation Comments Urine WBC (test code = 5821-4) 6-10 0-5 H [facility] [id number] 14:13:00* Test Item Value Reference Range Interpretation Comments Urine RBC (test code = 61559-3) 0-5 0-5 [facility] [id number] 14:13:00* Test Item Value Reference Range Interpretation Comments Urine Bacteria (test code = 35472-4) FEW NONE [facility] Epithelial [id number] 14:13:00 * Test Item Value Reference Range Interpretation Comments Urine Epithelial Cells (test code = 86300-9) FEW NONE [facility] [id number] 14:09:00* Test Item Value Reference Range Interpretation Comments Urine Color (test code = 5778-6) YELLOW YELLOW [facility] Qkwzhsd4468-85-23 14:09:00* Test Item Value Reference Range Interpretation Comments Urine Clarity (test code = 68241-3) CLEAR CLEAR [facility] Specific [id number] 14:09:00 * Test Item Value Reference Range Interpretation Comments Urine Specific [place] (test code = 5811-5) 1.020 1.010-1.02 5 [facility] [id number] 14:09:00* Test Item Value Reference Range Interpretation Comments Urine pH (test code = 14142-5) 6 5-7 [facility] Ilpnecm2724-23-80 14:09:00* Test Item Value Reference Range Interpretation Comments Urine Nitrite (test code = 11939-9) NEGATIVE NEGATIVE [facility] [id number] 14:09:00* Test Item Value Reference Range Interpretation Comments Urine Protein (test code = 5804-0) NEGATIVE NEGATIVE [facility] Glucose (UA)2017-10-08 14:09:00* Test Item Value Reference Range Interpretation Comments Urine Glucose (UA) (test code = 2349-9) NEGATIVE NEGATIVE [facility] [id number] 14:09:00* Test Item Value Reference Range Interpretation Comments Urine Ketones (test code = 83467-2) NEGATIVE NEGATIVE [facility] Sydrkruxsvnx0159-48-34 14:09:00* Test Item Value Reference Range Interpretation Comments Urine Urobilinogen (test code = 40744-2) 0.2 0.2-1 [facility] [id number] 14:09:00* Test Item Value Reference Range Interpretation Comments Urine Bilirubin (test code = 1978-6) NEGATIVE NEGATIVE [facility] [id number] 14:09:00* Test Item Value Reference Range Interpretation Comments Urine Blood (test code = 75378-8) NEGATIVE NEGATIVE [facility] [id number] 14:09:00* Test Item Value Reference Range Interpretation Comments Urine Test (test code = 2106-3) NEGATIVE NEGATIVE [facility] [id number] 14:09:00* Test Item Value Reference Range Interpretation Comments Urine Test (test code = 2106-3) NEGATIVE NEGATIVE [facility] HospitalHemoglobin A1c [id number] 08:53:00 * Test Item Value Reference Range Interpretation Comments Hemoglobin A1c Percent (test code = Hemoglobin A1c Percent) 7.0 4.0-7.0 [facility] HospitalThyroid Stimulating Hormone (TSH) 2017-10-08 04:23:00* Test Item Value Reference Range Interpretation Comments Thyroid Stimulating Hormone (TSH) (test code = 08462-2) 1.862 0.350-4.940 [facility] HospitalThyroid Stimulating Hormone (TSH) 2017-10-08 04:23:00* Test Item Value Reference Range Interpretation Comments Thyroid Stimulating Hormone (TSH) (test code = 24619-2) 1.862 0.350-4.940 [facility] HospitalCHEST SINGLE (PORTABLE)2017-10-08 04:20:00 [place] [id number] [place] [address] Patient Name: ROSA ISELA BENITEZ MR #: [id number] : 1970 Age/Sex: 47/F Req #: [id number] Adm Physician: Ordered by: ALAN NAJERA MD Report #: [id number] Location: ER Room/Bed: Procedure: [id number] DX/CHEST SINGLE (PORTABLE ) Exam Date: 10/08/17 [...] COPY TO: ALAN NAJERA MD LOWER LEG [id number] 04:18:00 [place] [address] Patient Name: ROSA ISELA BENITEZ MR #: [id number] : 1970 Age/Sex: 47/F Req #: [id number] Adm Physician: Ordered by: ALAN NAJERA MD Report #: [id number] Location: ER Room/Bed: Procedure: [id number] DX/LOWER LEG RIGHT Exam Date: 10/08/17 Exam Time: 356 REPORT STATUS: S igned LOWER LEG RIGHT Comparison: 10/17/2012 Clinical history: S LE SRINATH MA, PAIN RIGHT LEG S [id number] S 7 Findings: Mild diffuse soft tissue swelling, worse [...] COPY TO: ALAN NAJERA MD B-Type Natriuretic [id number] 04:06:00* Test Item Value Reference Range Interpretation Comments B-Type Natriuretic Peptide (test code = 76119-7) 17.1 0-100 [facility] HospitalB-Type Natriuretic [id number] 04:06:00* Test Item Value Reference Range Interpretation Comments B-Type Natriuretic Peptide (test code = 83621-1) 17.1 0-100 [facility] HospitalProthrombin [id number] 03:58:00* Test Item Value Reference Range Interpretation Comments Prothrombin Time (test code = 5902-2) 12.0 11.9-14.5 [facility] HospitalProthromb Time International Ratio 2017-10-08 03:58:00* Test Item Value Reference Range Interpretation Comments Prothromb Time International Ratio (test code = 6301-6) 0.96 Oral Anticoagulant Therapy INR Values:1. Low Intensity Therapy 1.5 - 2.02 . Moderate Intensity Therapy 2.0 - 3.03. High Intensity Therapy(1) 2.5 - 3. 54. High Intensity Therapy(2) 3.0 - 4.05. Panic Value INR > 5.0 [facility] HospitalActivated Partial Thromboplast Time 2017-10-08 03:58:00* Test Item Value Reference Range Interpretation Comments Activated Partial Thromboplast Time (test code = 66696-9) 25.0 23.8-35.5 [facility] HospitalD-Dimer Quantitative (PE/DVT)2017-10-08 03:58:00* Test Item Value Reference Range Interpretation Comments D-Dimer Quantitative (PE/DVT) (test code = 35016-9) 0.86 0. 00-0.45 H As with all in vitro diagnostic tests, the test results should be interpreted by the physician in conjunction with clinical findings and other test results.Test results are reported in NEW D-dimer units(ug/mLFEU).[facility] HospitalMagnesium [id number] 03:58:00* Test Item Value Reference Range Interpretation Comments Magnesium Level (test code = 18143-9) 1.9 1.3-2.1 [facility] HospitalD-Dimer Quantitative (PE/DVT)2017-10-08 03:58:00* Test Item Value Reference Range Interpretation Comments D-Dimer Quantitative (PE/DVT) (test code = 64559-1) 0.86 0. 00-0.45 H As with all in vitro diagnostic tests, the test results should be interpreted by the physician in conjunction with clinical findings and other test results.Test results are reported in NEW D-dimer units(ug/mLFEU).[facility] HospitalMagnesium [id number] 03:58:00* Test Item Value Reference Range Interpretation Comments Magnesium Level (test code = 88339-6) 1.9 1.3-2.1 [facility]
[2020-03-11] MEDS ORDERED: SODIUM CHLORIDE 0.9% 50ML 50 ML ONE (18:50)
--- NOTE | 2020-03-11 18:50 | Emergency Department Note ---
History of Present Illnes History of Present Illness Chief Complaint: Extremity Trauma/Pain History of Present Illness This is a 50 year old female Patient in from home with complaints of chronic bilateral lower extremity edema that became worse and painful about 10 days ago. Patient was seen here at the start of the swelling and placed on levofloxacin which seemed to help but it quickly went back to the way it was bef ore. Patient has a history of lupus and has been using steroids to control the symptoms for the last 12 or more years. Patient reports severe pain to the legs but is able to walk with the assistance of a cane. Historian: Patient Arrival Mode: Car Fashion Consultant Sales Required: No Onset (how long ago): day(s) (10) Location: BILAT LEGS Quality: SWELLING, REDNESS, PAIN Radiation: Reports non-radiation Severity: severe Onset quality: gradual Timing of current episode: constant Chronicity: recurrent Context: Reports recent illness (RECENTLY FINISHED LEVAQUIN FOR SAME PROBLEM, SEEN HERE IN ER 03/03/20) Relieving factors: none Exacerbating factors: none Associated symptoms: Reports denies other symptoms Past Medical/Family History Physician Review I have reviewed the patient's past medical and family history. Any updates have been documented here. Past Medical History Recent Fever: No Clinical Suspicion of Infectio: Yes New/Unexplained Change in Ment: No Past Medical History: Hypertension, Diabetes, Kidney Stones, Migraines, Anxiety, Hyperlipedemia, Lupus Other Medical History: Lyme disease lymphedema Past Surgical History: Cholecysctectomy, Tubal Ligation Other Surgery: tonsillectomy,wisdom teeth removal, cyst drainage Social History Smoking Cessation: Never Smoker Counseling Performed: No Alcohol Use: None Any Illegal Drug Use: No TB Exposure/Symptoms: No Physically hurt or threatened: No Family History Family history of heart diseas: No Other Last Tetanus: UTD Review of Systems Review of Systems Constitutional: Reports no symptoms EENTM: Reports no symptoms Cardiovascular: Reports no symptoms Respiratory: Reports no symptoms Gastrointestinal: Reports no symptoms Genitourinary: Reports no symptoms Musculoskeletal: Reports as per HPI Integumentary: Reports as per HPI Neurological: Reports no symptoms Psychological: Reports no symptoms Endocrine: Reports no symptoms Hematological/Lymphatic: Reports no symptoms Physical Exam Related Data Allergies: Coded Allergies: Fish Containing Products (Verified Allergy, Severe, 04/09/18) shellfish derived (Verified Allergy, Severe, 04/09/18) vancomycin (Verified Allergy, Severe, honey symdrome?, 04/09/18) bacitracin (Verified Allergy, Intermediate, causes skin to get yellow and crusty, 04/09/18) linezolid (Verified Allergy, Intermediate, 04/11/18) PATIENT HAS HIVES TO ARMS, LEGS , AND ABD AND BACK neomycin (Verified Allergy, Intermediate, causes skin to get crusty and yellow, 04/09/18) polymyxin B (Verified Allergy, Intermediate, causes skin to get crusty and yellow, 04/09/18) cefepime (Verified Allergy, Unknown, 11/17/18) iodine (Verified Allergy, Unknown, 04/09/18) meropenem (Verified Adverse Reaction, Unknown, hives, 11/18/18) Uncoded Allergies: CHITOSAN (Allergy, Unknown, 07/06/16) Triage Vital Signs Vital Signs Date Time Temp Pulse Resp B/P (MAP) Pulse Ox O2 Delivery O2 Flow Rate FiO2 03/11/20 17:00 97.8 118 16 142/89 99 Room Air Vital signs reviewed: Yes Physical Exam CONSTITUTIONAL Constitutional: Present well-developed, Present well-nourished HENT HENT: Present normocephalic, Present atraumatic, Present oropharynx clear/moist, Present nose normal HENT L/R: Present left ext ear normal, Present right ext ear normal EYES Eyes: Reports PERRL, Reports conjunctivae normal NECK Neck: Present ROM normal PULMONARY Pulmonary: Present effort normal, Present breath sounds normal CARDIOVASCULAR Cardiovascular: Present regular rhythm, Present heart sounds normal, Present capillary refill normal, Present normal rate GASTROINTESTINAL Abdominal: Present soft, Present nontender, Present bowel sounds normal GENITOURINARY Genitourinary: Present exam deferred SKIN Skin: Present warm, Present dry MUSCULOSKELETAL Musculoskeletal: Present edema, Present other (BILAT LEGS WITH SEVERE 4+ EDEMA, ERYTHEMA, TTP) NEUROLOGICAL Neurological: Present alert, Present oriented x 3, Present no gross motor or sensory deficits PSYCHOLOGICAL Psychological: Present mood/affect normal, Present judgement normal Results Laboratory Result Diagram: 03/11/20172203/11/201722 Laboratory Laboratory Tests Test 03/11/20 18:11 03/11/20 17:23 Urine Color Yellow (YELLOW) Urine Clarity Sl cloudy (CLEAR) Urine pH 5.5 (5 - 7) Urine Specific [place] 1.020 (1.010-1.025) Urine Protein Negative (NEGATIVE) Urine Glucose (UA) Negative (NEGATIVE) Urine Ketones Negative (NEGATIVE) Urine Blood Negative (NEGATIVE) Urine Nitrite Negative (NEGATIVE) Urine Bilirubin Negative (NEGATIVE) Urine Urobilinogen 0.2 mg/dL (0.2 - 1) Urine Leukocyte Esterase Negative (NEGATIVE) Urine RBC None /HPF (0-5) Urine WBC None /HPF (0-5) Urine Epithelial Cells Few /LPF (NONE) Urine Bacteria None /HPF (NONE) White Blood Count 18.26 x10e3/uL (4.8-10.8) Red Blood Count 3.89 x10e6/uL (3.6-5.1) Hemoglobin 13.2 g/dL (12.0-16.0) Hematocrit 39.4 % (34.2-44.1) Mean Corpuscular Volume 101.3 fL (81-99) Mean Corpuscular Hemoglobin 33.9 pg (28-32) Mean Corpuscular Hemoglobin Concent 33.5 g/dL (31-35) Red Cell Distribution Width 14.3 % (11.7-14.4) Platelet Count 393 x10e3/uL (140-360) Neutrophils (%) (Auto) 72.0 % (38.7-80.0) Lymphocytes (%) (Auto) 18.1 % (18.0-39.1) Monocytes (%) (Auto) 6.1 % (4.4-11.3) Eosinophils (%) (Auto) 0.3 % (0.0-6.0) Basophils (%) (Auto) 0.5 % (0.0-1.0) Neutrophils # (Auto) 13.2 (2.1-6.9) Lymphocytes # (Auto) 3.3 (1.0-3.2) Monocytes # (Auto) 1.1 (0.2-0.8) Eosinophils # (Auto) 0.1 (0.0-0.4) Basophils # (Auto) 0.1 (0.0-0.1) Absolute Immature Granulocyte (auto 0.54 x10e3/uL (0-0.1) Prothrombin Time 12.5 seconds (11.9-14.5) Prothromb Time International Ratio 0.89 Activated Partial Thromboplast Time 22.7 seconds (23.8-35.5) Sodium Level 139 mmol/L (136-145) Potassium Level 4.1 mmol/L (3.5-5.1) Chloride Level 102 mmol/L (98-107) Carbon Dioxide Level 25 mmol/L (22-29) Anion Gap 16.1 mmol/L (8-16) Blood Urea Nitrogen 15 mg/dL (7-26) Creatinine 0.77 mg/dL (0.57-1.11) Estimat Glomerular Filtration Rate > 60 ML/MIN (60-) BUN/Creatinine Ratio 19 (6-25) Glucose Level 161 mg/dL (74-118) Calcium Level 8.7 mg/dL (8.4-10.2) Magnesium Level 1.7 MG/DL (1.3-2.1) Total Bilirubin 0.2 mg/dL (0.2-1.2) Aspartate Amino Transf (AST/SGOT) 87 IU/L (5-34) Alanine Aminotransferase (ALT/SGPT) 67 IU/L (0-55) Alkaline Phosphatase 106 IU/L (40-150) Creatine Kinase 90 IU/L (29-168) Creatine Kinase MB 2.20 ng/mL (0-5.0) Troponin I < 0.001 ng/mL (0-0.300) B-Type Natriuretic Peptide 32.5 pg/mL (0-100) Total Protein 7.3 g/dL (6.5-8.1) Albumin 3.5 g/dL (3.5-5.0) Globulin 3.8 g/dL (2.3-3.5) Albumin/Globulin Ratio 0.9 (0.8-2.0) Lab results reviewed: Yes Imaging Imaging results reviewed: Yes Impressions EXAMINATION: CHEST SINGLE (PORTABLE) INDICATION:LE EDEMA COMPARISON: Multiple prior chest x-ray examinations most recent dated 01/09/2020. FINDINGS: AP view TUBES and LINES: Left PICC line removed.. . LUNGS/PLEURA: Lungs are well inflated. There are very mild bilateral interstitial opacities likely representing pulmonary edema.. There is no pleural effusion or pneumothorax. HEART AND MEDIASTINUM: The cardiomediastinal silhouette is unremarkable. BONES AND SOFT TISSUES: No acute osseous lesion. Soft tissues are unremarkable. UPPER ABDOMEN: No free air under the diaphragm. IMPRESSION: Unchanged very mild bilateral interstitial opacities likely representing very mild pulmonary edema.. Signed by: Ho Griffith MD on 03/11/2020 6:34 PM Assessment & Plan Medical Decision Making MDM PT WITH H/O SLE, RECURRENT CELLULITIS BILAT LE'S UNRESPONSIVE TO PO LEVAQUIN - CBC, CMP, UA, BLOOD CX'S, COAG'S, CARDIACS, BNP, CXR - R/O CELLULITIS, RENAL INSUFF, HYPOALBUMINEMIA, CHF Reassessment Reassessment I SPOKE WITH DR NARVAEZ - PT IS DIFFICULT DUE TO MULTIPLE ALLERGIES, HE SUGGESTED PUTTING PT ON WHAT SHE WAS ON WITH LAST ADMISSION BUT I REVIEWED CHART AND IT WAS LEVAQUIN WHICH PT JUST FINISHED ORAL COURSE. WILL START CLINDAMYCIN, ADMIT Assessment & Plan Final Impression: (1) Cellulitis of both lower extremities (2) SLE (systemic lupus erythematosus) Depart Disposition: ADMITTED Last Vital Signs Date Time Temp Pulse Resp B/P (MAP) Pulse Ox O2 Delivery O2 Flow Rate FiO2 03/11/20 17:00 97.8 118 16 142/89 99 Room Air Home Meds Reported Medications Eszopiclone (LUNESTA) 3 Mg Tablet, 3 MG PO HS 01/04/20 Sertraline Hcl (SERTRALINE HCL) 50 Mg Tablet, 50 MG PO DAILY PRN for AGITATION 02/07/19 Albuterol Sulfate (VENTOLIN HFA) 18 Gm Hfa.aer.ad, PO Q4HR PRN for ALLERGY 11/18/18 [Santyl] No Conflict Check, 1 APPLIC TOP DAILY 11/18/18 Furosemide (FUROSEMIDE) 40 Mg Tablet, 40 MG PO DAILY PRN for SWELLING 11/18/18 Epinephrine (EPINEPHRINE) 0.3 Mg/0.3 Ml Pen.injctr 11/18/18 Lisinopril (LISINOPRIL) 2.5 Mg Tablet, 2.5 MG PO DAILY PRN for BLOOD PRESSURE PER PATIENT, PT ONLY TAKES LISINOPPRIL NEEDED. 11/18/18 Glimepiride (GLIMEPIRIDE) 4 Mg Tablet, 4 MG PO BID 11/18/18 Cyclobenzaprine Hcl (CYCLOBENZAPRINE HCL) 10 Mg Tablet, 10 MG PO TID PRN for MUSCLE SPASMS 11/18/18 Hydrocodone Bit/Acetaminophen (HYDROCODON-ACETAMINOPHN 10-325) 1 Each Tablet, 1 TAB PO Q8H PRN for MODERATE PAIN (4-6) 11/18/18 Alprazolam (ALPRAZOLAM) 0.25 Mg Tablet, 0.25 MG PO TID PRN for ANXIETY 11/18/18 Promethazine Hcl (PROMETHAZINE HCL) 25 Mg Tablet, 25 MG PO Q 6 H PRN 10/16/12 Atenolol (ATENOLOL) 25 Mg Tablet, 25 MG PO BID 06/25/12 Medications in the ED Hydromorphone HCl 1 mg ONCE STAT IV Last administered on 03/11/20at 17:47; Admin Dose 1 MG; Start 03/11/20 at 17:07; Stop 03/11/20 at 17:13; Status DC Ondansetron HCl 4 mg ONCE STAT IV Last administered on 03/11/20at 17:47; Admin Dose 4 MG; Start 03/11/20 at 17:07; Stop 03/11/20 at 17:13; Status DC Clindamycin Phosphate 50 ml @ 50 mls/hr Q6H IV ; Start 03/11/20 at 19:15; Stop 03/18/20 at 19:14; Status UNV Diphenhydramine HCl 50 mg Q6HR IV ; Start 03/11/20 at 18:45; Stop 04/10/20 at 18:44; Status UNV ALAN NAJERA MD Mar 11, 2020 18:50
[2020-03-11] MEDS: CLINDAMYCIN PHOS 900MG/ 50ML 50 ML IV SCH (19:45)
[2020-03-11 21:22] VITALS: BP 149/82
[2020-03-11 21:25] VITALS: BP 106/78
[2020-03-11] MEDS: HYDROMORPHONE 1MG/1ML INJ IV PRN (21:50)
--- NOTE | 2020-03-11 22:00 | NUR ---
Patient arrived in the unit and settled down, safety and fall precautions maintained, bed in lowest position and locked, needed items beside bed and call young placed close to patient, patient refused hospital gown. There is an order for fluids, patient refused, Dr. Cardozo called and made aware and ordered to hold. patient is current stable, will continue to monitor.
[2020-03-12] VITALS (8 sets, daily range): BP systolic 119–141; BP diastolic 71–84
[2020-03-12] MEDS: HYDROMORPHONE 1MG/1ML INJ IV PRN ×7 (01:50→22:37)
[2020-03-12] MEDS: ONDANSETRON HCL INJ 2MG/ML 2ML 2 MG/ML VIAL IV PRN ×4 (02:00→22:37)
[2020-03-12] MEDS: DIPHENHYDRAMINE HCL INJ 50 MG/ML VIAL IV SCH ×4 (02:34→19:28)
[2020-03-12] MEDS: CLINDAMYCIN PHOS 900MG/ 50ML 50 ML IV SCH ×4 (03:06→20:19)
[2020-03-12] MEDS ORDERED: CYCLOBENZAPRINE HCL 10 MG TAB PO PRN (04:45)
[2020-03-12 06:44] LABS: BASOPHILS # (AUTO) 0.1 (0.0-0.1); BASOPHILS % 0.4 % (0.0-1.0); EOSINOPHILS # (AUTO) 0.1 (0.0-0.4); EOSINOPHILS % 0.3 % (0.0-6.0); HEMOGLOBIN 11.7 g/dL (12.0-16.0); LYMPHOCYTES # (AUTO) 2.6 (1.0-3.2); LYMPHOCYTES % 17.8 % (18.0-39.1); MEAN CORPUSCULAR HEMOGLOBIN 33.8 pg (28-32); MEAN CORPUSCULAR HGB CONC 33.4 g/dL (31-35); MEAN CORPUSCULAR VOLUME 101.2 fL (81-99); MONOCYTES % 6.7 % (4.4-11.3); NEUTROPHILS # (AUTO) 10.7 (2.1-6.9); NEUTROPHILS % 72.6 % (38.7-80.0); PLATELET COUNT 343 x10e3/uL (140-360); RED BLOOD COUNT 3.46 x10e6/uL (3.6-5.1); RED CELL DISTRIBUTION WIDTH 14.2 % (11.7-14.4)
[2020-03-12 07:12] LABS: ALANINE AMINOTRANSFERASE 158 IU/L (0-55); ALBUMIN 3.1 g/dL (3.5-5.0); ALKALINE PHOSPHATASE 112 IU/L (40-150); ANION GAP 13.9 mmol/L (8-16); BLOOD UREA NITROGEN 12 mg/dL (7-26); BUN/CREATININE RATIO 15 (6-25); CALCIUM 8.4 mg/dL (8.4-10.2); CARBON DIOXIDE 25 mmol/L (22-29); CHLORIDE 103 mmol/L (98-107); CREATININE, SERUM 0.78 mg/dL (0.57-1.11); EST GLOMERULAR FILTRATION RATE > 60 ML/MIN (60-); GLUCOSE 154 mg/dL (74-118); POTASSIUM 3.9 mmol/L (3.5-5.1); SODIUM 138 mmol/L (136-145)
--- NOTE | 2020-03-12 07:13 | NUR ---
RECEIVED PT IN BED. RESPIRATIONS EVEN AND BREATHING UNLABORED. PT IN STABLE CONDITION. TELE BOX APPLIED. CALL LIGHT WITHIN REACH. WILL CONTINUE TO MONITOR.
--- NOTE | 2020-03-12 07:41 | NUR ---
Patient endorsed to next shift for continuity of care.
[2020-03-12] MEDS: GLIMEPIRIDE 2 MG TAB PO SCH ×2 (08:29→16:15)
[2020-03-12] MEDS: FUROSEMIDE INJ 10 MG/ML 4 ML VIAL IV SCH ×2 (08:30→16:15)
[2020-03-12] MEDS: LISINOPRIL 2.5 MG TAB PO SCH (08:31)
[2020-03-12] MEDS: SERTRALINE HCL 50 MG TAB PO SCH (08:32)
[2020-03-12] MEDS: ATENOLOL 50 MG TAB PO SCH ×2 (08:32→16:15)
--- NOTE | 2020-03-12 10:42 | NUR ---
DISCUSSED WITH PATIENT IMPORTANCE OF USING CONTINUOUS PULSE OX ORDERED AND SHE STATES DECLINES TO USE CONTINUOUS HOWEVER WILL TRY TO USE OFF AND ON.
--- NOTE | 2020-03-12 17:39 | NUR ---
PT NOTES MINIMAL ITCHING AND SMALL BLISTER ON TONGUE. NO RESPIRATORY DISTRESS OR SWALLOWING DIFFICULTIES. MD HAS BEEN ADVISED BY MESSAGE.
--- NOTE | 2020-03-12 19:00 | NUR ---
PT RESTING IN BED. PT IN STABLE CONDITION. RESPIRATIONS EVEN AND BREATHING UNLABORED. TELE APPLIED. BEDSIDE SHIFT REPORT GIVEN TO ONCOMING NURSE.
--- NOTE | 2020-03-12 19:00 | NUR ---
Resumed care of patient. Patient awake and sitting up in bed, no s/s of distress at this time. Bed locked and in lowest position, side rails upx2, call light placed within reach. Patient refusing bed alarm at this time. Instructed to call for assistance if needed, verbalized understanding. All safety measures in place.
[2020-03-12] MEDS: FLUCONAZOLE 100 MG TAB PO SCH (20:19)
[2020-03-13] VITALS (8 sets, daily range): BP systolic 108–137; BP diastolic 55–90
[2020-03-13] MEDS: HYDROMORPHONE 1MG/1ML INJ IV PRN ×7 (01:40→21:06)
[2020-03-13] MEDS: DIPHENHYDRAMINE HCL INJ 50 MG/ML VIAL IV SCH ×4 (01:40→19:39)
[2020-03-13] MEDS: CLINDAMYCIN PHOS 900MG/ 50ML 50 ML IV SCH ×4 (02:13→20:03)
[2020-03-13] MEDS: ONDANSETRON HCL INJ 2MG/ML 2ML 2 MG/ML VIAL IV PRN ×3 (04:50→17:59)
--- NOTE | 2020-03-13 06:51 | NUR ---
RECEIVED PT RESTING IN BED. PT IN STABLE CONDITION. NO C/O PAIN VERBALIZED. TELE APPLIED. CALL LIGHT WITHIN REACH. WILL CONTINUE TO MONITOR.
--- NOTE | 2020-03-13 07:06 | NUR ---
Bedside shift report given to oncoming nurse. Patient awake and resting in bed, no s/s of distress at this time. All safety measures in place.
[2020-03-13] MEDS: GLIMEPIRIDE 2 MG TAB PO SCH ×2 (08:24→15:56)
[2020-03-13] MEDS: ATENOLOL 50 MG TAB PO SCH ×2 (08:25→15:59)
[2020-03-13] MEDS: FUROSEMIDE INJ 10 MG/ML 4 ML VIAL IV SCH ×2 (08:25→15:59)
[2020-03-13] MEDS: SERTRALINE HCL 50 MG TAB PO SCH (08:29)
[2020-03-13] MEDS: LISINOPRIL 2.5 MG TAB PO SCH (08:29)
--- NOTE | 2020-03-13 08:30 | Progress Note ---
DATE: SUBJECTIVE: A 50-year-old female comes in with cellulitis of lower extremities. The patient is doing well with clindamycin. Cellulitis, erythema and tenderness decreased, but still continues. The patient is currently on clindamycin and hydromorphone 1 mg q.3 hours for pain, diphenhydramine, glimepiride for blood sugars, lisinopril for blood pressure, for hypertension, and alprazolam for her anxiety. OBJECTIVE: VITAL SIGNS: Temperature is 97.6, pulse of 69, respirations of 18, blood pressure is 108/55, pulse oximeter 96% on room air. HEENT: Normocephalic, atraumatic. Pupils are reactive. CVS: S1 and S2 normal. Regular rate and rhythm. ABDOMEN: Soft, nontender. EXTREMITIES: Positive for erythema, tenderness and also multiple ecchymoses. LABORATORY VALUES: From yesterday white count is 14,000, hemoglobin is 11.7 downtrending. Chemistries blood sugars in the 120s to 160s. Serology, [place] virus is pending. Urine was negative. ASSESSMENT AND PLAN: This is Pratibha Raza with: 1. Cellulitis of the lower extremity. Continue on clindamycin. 2. Diabetes mellitus. Continue with home medication. 3. Hypertension. Continue current plan. 4. Anxiety. Continue current plan. Further recommendation per clinical course. We will continue to monitor the patient, trend her white count and continue watching her. MD TIKA Mills/EDVIN /[id number]
[2020-03-13] MEDS: FLUCONAZOLE 100 MG TAB PO SCH (09:38)
--- NOTE | 2020-03-13 19:09 | NUR ---
PT RESTING IN BED. RESPIRATIONS EVEN AND BREATHING UNLABORED. PT IN STABLE CONDITION. BEDSIDE SHIFT REPORT GIVEN TO ONCOMING NURSE.
[2020-03-14] VITALS (8 sets, daily range): BP systolic 101–151; BP diastolic 78–92
[2020-03-14] MEDS: ONDANSETRON HCL INJ 2MG/ML 2ML 2 MG/ML VIAL IV PRN ×4 (00:14→17:04)
[2020-03-14] MEDS: HYDROMORPHONE 1MG/1ML INJ IV PRN ×9 (00:14→23:43)
[2020-03-14] MEDS: DIPHENHYDRAMINE HCL INJ 50 MG/ML VIAL IV SCH ×4 (01:47→19:58)
[2020-03-14] MEDS: CLINDAMYCIN PHOS 900MG/ 50ML 50 ML IV SCH ×4 (02:08→20:35)
[2020-03-14 05:30] LABS: BASOPHILS # (AUTO) 0.1 (0.0-0.1); BASOPHILS % 0.9 % (0.0-1.0); EOSINOPHILS # (AUTO) 0.1 (0.0-0.4); EOSINOPHILS % 0.9 % (0.0-6.0); HEMATOCRIT 38.5 % (34.2-44.1); HEMOGLOBIN 12.3 g/dL (12.0-16.0); LYMPHOCYTES # (AUTO) 2.7 (1.0-3.2); LYMPHOCYTES % 22.4 % (18.0-39.1); MEAN CORPUSCULAR HEMOGLOBIN 33.4 pg (28-32); MEAN CORPUSCULAR HGB CONC 31.9 g/dL (31-35); MEAN CORPUSCULAR VOLUME 104.6 fL (81-99); MONOCYTES # (AUTO) 0.9 (0.2-0.8); MONOCYTES % 7.8 % (4.4-11.3); NEUTROPHILS # (AUTO) 7.7 (2.1-6.9); NEUTROPHILS % 64.8 % (38.7-80.0); PLATELET COUNT 328 x10e3/uL (140-360); RED BLOOD COUNT 3.68 x10e6/uL (3.6-5.1); RED CELL DISTRIBUTION WIDTH 14.6 % (11.7-14.4)
[2020-03-14 05:54] LABS: BLOOD UREA NITROGEN 12 mg/dL (7-26); BUN/CREATININE RATIO 13 (6-25); CALCIUM 8.5 mg/dL (8.4-10.2); CARBON DIOXIDE 30 mmol/L (22-29); CHLORIDE 100 mmol/L (98-107); CREATININE, SERUM 0.89 mg/dL (0.57-1.11); EST GLOMERULAR FILTRATION RATE > 60 ML/MIN (60-); GLUCOSE 154 mg/dL (74-118); SODIUM 140 mmol/L (136-145)
--- NOTE | 2020-03-14 08:24 | Progress Note ---
DATE: SUBJECTIVE: The patient is a 50-year-old female who came with cellulitis of the left lower extremity with a history of immunosuppression. The patient has a history of lupus erythematosus, currently feeling a little bit better but continues to have pain and is taking Dilaudid every 3 hours. The patient is also on clindamycin q.6 hours. OBJECTIVE: VITAL SIGNS: Temperature is 97.6, pulse of 68, respirations 16, blood pressure is 135/88 with a pulse oximetry of 96%. HEENT: Normocephalic, atraumatic. Pupils are reactive. CVS: S1 and S2, regular. EXTRMITIES: Positive for erythema. Positive for edema. Positive for ecchymosis and tender areas with multiple areas of excoriation. LABORATORY VALUES: White count is 11,000 down from 14,000, platelet count 328, neutrophils 7.7 still with a left shift. ASSESSMENT AND PLAN: Ms. Pratibha Raza with: 1. Cellulitis of the left lower extremity. Plan is to continue on clindamycin. 2. Diabetes mellitus. Continue with home medication. 3. Hypertension and anxiety. Continue with current plan. Continue monitoring the patient. Pain medications on board. Further recommendation per clinical course. MD TIKA Mills/EDVIN /[id number]
[2020-03-14] MEDS: GLIMEPIRIDE 2 MG TAB PO SCH ×2 (08:34→17:10)
[2020-03-14] MEDS: FUROSEMIDE INJ 10 MG/ML 4 ML VIAL IV SCH ×2 (08:34→17:03)
[2020-03-14] MEDS: LISINOPRIL 2.5 MG TAB PO SCH ×3 (08:35→09:00)
[2020-03-14] MEDS: FLUCONAZOLE 100 MG TAB PO SCH (08:35)
[2020-03-14] MEDS: ATENOLOL 50 MG TAB PO SCH ×2 (08:36→17:10)
[2020-03-14] MEDS: SERTRALINE HCL 50 MG TAB PO SCH (08:36)
--- NOTE | 2020-03-14 19:24 | NUR ---
Received change of shift report from AM nurse. Walking rounds completed.
[2020-03-14] MEDS: ONDANSETRON HCL 4 MG ORAL DISINTEGRATING TAB PO PRN (23:45)
[2020-03-15] VITALS (7 sets, daily range): BP systolic 122–135; BP diastolic 73–90
[2020-03-15] MEDS: DIPHENHYDRAMINE HCL INJ 50 MG/ML VIAL IV SCH ×4 (01:30→19:40)
[2020-03-15] MEDS: CLINDAMYCIN PHOS 900MG/ 50ML 50 ML IV SCH ×4 (02:00→20:05)
--- NOTE | 2020-03-15 06:11 | NUR ---
Patient require pain and nausea meds q3 hours. Med given as ordered,
--- NOTE | 2020-03-15 07:25 | NUR ---
PATIENT IN BED RESTING WITH HEAD OF BED ELEVATED, NO DISTRESS NOTED. REDNESS AND SWELLING TO BLE. BED IN LOWER POSITION, CALL LIGHT AT REACH.
[2020-03-15] MEDS: HYDROMORPHONE 1MG/1ML INJ IV PRN ×6 (07:40→23:30)
[2020-03-15] MEDS: GLIMEPIRIDE 2 MG TAB PO SCH ×2 (08:20→17:33)
[2020-03-15] MEDS: FLUCONAZOLE 100 MG TAB PO SCH (08:51)
[2020-03-15] MEDS: FUROSEMIDE INJ 10 MG/ML 4 ML VIAL IV SCH ×2 (08:51→17:33)
[2020-03-15] MEDS: SERTRALINE HCL 50 MG TAB PO SCH (09:00)
[2020-03-15] MEDS: LISINOPRIL 2.5 MG TAB PO SCH ×2 (09:00→09:26)
--- NOTE | 2020-03-15 09:12 | Progress Note ---
DATE: SUBJECTIVE: The patient is a 50-year-old female, came into the hospital with lower extremity cellulitis, was on clindamycin. Continues to have erythema and redness and pain. The patient keeps the legs wrapped. Yesterday, she did walk, complains of some pain in the lower extremity, also with duskiness in the lower extremities. OBJECTIVE: VITAL SIGNS: Temperature is 97.9, pulse of 69, respirations of 20, blood pressure is 134/81, pulse oximetry of 93% on room air. HEENT: Normocephalic, atraumatic. Pupils reactive. CVS: S1 and S2 normal. Regular rate and rhythm. ABDOMEN: Soft, nontender, nondistended. EXTREMITIES: Positive for erythema. Positive for ecchymosis and tender areas with small areas of excoriation. ASSESSMENT AND PLAN: 1. Cellulitis of the left lower extremity. Continue clindamycin. 2. Diabetes mellitus. Continue medication. Sliding scale. 3. Hypertension and anxiety. Continue medicine. 4. Lupus erythematosus. We will continue to monitor the patient. Further recommendation per clinical course. Today's laboratory values not done. Chemistry did show glucose in the 114-130. MD TIKA Mills/EDVIN /[id number]
[2020-03-15] MEDS: ATENOLOL 50 MG TAB PO SCH ×2 (09:26→17:34)
--- NOTE | 2020-03-15 11:57 | NUR ---
PATIENT ASSISTED TO THE RESTROOM AND BACK TO BED. C/O PAIN AND WAS MEDICATED ORDERED. WILL CLOSELY MONITOR.
[2020-03-15] MEDS: ONDANSETRON HCL 4 MG ORAL DISINTEGRATING TAB PO PRN ×2 (14:15→20:05)
--- NOTE | 2020-03-15 16:27 | NUR ---
PATIENT SITTING UP IN BED TALKING ON THE PHONE. NO COMPLAIN VOICED. CALL LIGHT AT REACH.
[2020-03-15] MEDS: ALPRAZOLAM 0.25 MG TAB PO PRN (21:17)
[2020-03-16] VITALS (8 sets, daily range): BP systolic 120–145; BP diastolic 79–93
[2020-03-16] MEDS: DIPHENHYDRAMINE HCL INJ 50 MG/ML VIAL IV SCH ×4 (01:30→19:34)
[2020-03-16] MEDS: CLINDAMYCIN PHOS 900MG/ 50ML 50 ML IV SCH ×4 (02:00→20:09)
[2020-03-16] MEDS: HYDROMORPHONE 1MG/1ML INJ IV PRN ×7 (03:15→22:50)
--- NOTE | 2020-03-16 07:25 | NUR ---
PATIENT SITTING UP IN BED WATCHING TV, NO COMPLAIN VOICED. REDNESS AND SWELLING DECREASING TO LOWER EXTREMITIES. BED IN LOWER POSITION, CALL LIGHT AT REACH.
[2020-03-16] MEDS: GLIMEPIRIDE 2 MG TAB PO SCH ×2 (08:56→17:05)
[2020-03-16] MEDS: SERTRALINE HCL 50 MG TAB PO SCH (09:00)
[2020-03-16] MEDS: LISINOPRIL 2.5 MG TAB PO SCH (09:00)
--- NOTE | 2020-03-16 09:05 | Progress Note ---
DATE: SUBJECTIVE: This is a 50-year-old female who came in with cellulitis of the lower extremities. The patient is on clindamycin, progression is made. The patient is feeling better, erythema down, tenderness down. OBJECTIVE: VITAL SIGNS: Temperature is 97.0, pulse is 63, respirations 18, blood pressure is 120/93, pulse oximetry of 97%. HEENT: Normocephalic, atraumatic. Pupils reactive. CVS: S1 and S2 normal. Regular rate and rhythm. ABDOMEN: Soft, nontender, nondistended. EXTREMITIES: Erythema down. Swelling down and also tenderness down. ASSESSMENT AND PLAN: 1. Ms. Raza with cellulitis of left lower extremity. 2. Lupus erythematosus. 3. Hypertension. 4. Diabetes mellitus. 5. Anxiety. 6. Chronic pain medication and opioid use. White count is down to 11.89. Continue with clindamycin. Continue with current medication regimen. The patient can be discharge home depending on clinical course. MD TIKA Mills/MODL /[id number]
[2020-03-16] MEDS: FUROSEMIDE INJ 10 MG/ML 4 ML VIAL IV SCH ×2 (09:16→17:05)
[2020-03-16] MEDS: FLUCONAZOLE 100 MG TAB PO SCH (09:16)
[2020-03-16] MEDS: ATENOLOL 50 MG TAB PO SCH ×2 (09:17→17:05)
[2020-03-16] MEDS: PANTOPRAZOLE SOD 40 MG TABEC PO SCH ×2 (09:17→17:05)
[2020-03-16] MEDS: ONDANSETRON HCL 4 MG ORAL DISINTEGRATING TAB PO PRN ×2 (12:50→22:43)
--- NOTE | 2020-03-16 15:28 | NUR ---
PATIENT MEDICATED FOR PAIN. SITTING UP IN BED PLAYING ON THE PHONE. CALL LIGHT AT REACH.
[2020-03-17] VITALS (8 sets, daily range): BP systolic 114–124; BP diastolic 55–81
[2020-03-17] MEDS: ALPRAZOLAM 0.25 MG TAB PO PRN (00:45)
[2020-03-17] MEDS: DIPHENHYDRAMINE HCL INJ 50 MG/ML VIAL IV SCH ×4 (00:45→20:35)
[2020-03-17] MEDS: CLINDAMYCIN PHOS 900MG/ 50ML 50 ML IV SCH ×4 (01:51→21:00)
--- NOTE | 2020-03-17 01:59 | NUR ---
LEAKING TO 20G LEFT AC. NEW 22G IV TO R FA STARTED. BLOOD RETURN. SALINE FLUSH. CDI DRESSING APPLIED. TOLERATED WELL.
[2020-03-17] MEDS: HYDROMORPHONE 1MG/1ML INJ IV PRN ×7 (02:07→21:23)
--- NOTE | 2020-03-17 07:34 | NUR ---
REPORT GIVEN TO DAYSHIFT NURSE. ALERT AND RESTING IN BED. NO SIGNS IV INFILTRATION. BED LOCKED AND IN LOW POSITION. CALL LIGHT WITHIN REACH.
--- NOTE | 2020-03-17 07:36 | NUR ---
RECEIVED PT RESTING IN BED. PT IN STABLE CONDITION. TELE APPLIED. CALL LIGHT WITHIN REACH. WILL CONTINUE TO MONITOR.
[2020-03-17] MEDS: PANTOPRAZOLE SOD 40 MG TABEC PO SCH ×2 (08:37→16:10)
[2020-03-17] MEDS: ATENOLOL 50 MG TAB PO SCH ×2 (08:37→16:11)
[2020-03-17] MEDS: FLUCONAZOLE 100 MG TAB PO SCH (08:37)
[2020-03-17] MEDS: FUROSEMIDE INJ 10 MG/ML 4 ML VIAL IV SCH ×2 (08:37→16:10)
[2020-03-17] MEDS: GLIMEPIRIDE 2 MG TAB PO SCH ×2 (08:38→16:10)
[2020-03-17] MEDS: ONDANSETRON HCL 4 MG ORAL DISINTEGRATING TAB PO PRN (08:44)
[2020-03-17] MEDS: SERTRALINE HCL 50 MG TAB PO SCH (09:00)
[2020-03-17] MEDS: LISINOPRIL 2.5 MG TAB PO SCH (09:00)
--- NOTE | 2020-03-17 16:19 | NUR ---
Nutrition Screen Note RD Recommendation for Physician: - Continue current diet Plan of Care: RD following, monitoring for tolerance and adequacy Nutrition reason for involvement: LOS Primary Diagnose(s): cellulitis- BLE PMH: chronic cellulitis, DM, HTN, anxiety, lupus, lymphedema Ht: 64 in Wt: 180.5 lb BMI: 31 kg/m2 IBW: [address] Assessment: (03/17) 50 YOF admitted for BLE cellulitis, seen today for LOS. Pt reports good appetite and po intake currently and [employer]. Pt denies any wt loss or GI distress. Pt reports anaphylactic reaction to all fish and shellfish- reaction noted in chart and pt safe to self select. Chart reviewed. Labs and meds reviewed. Will continue to monitor. Current Diet: 1800 ADA Malnutrition Evaluation (03/17/20) The patient does not meet criteria for a specified degree of malnutrition at this time. Will re-evaluate at follow-up as appropriate. Diet Education Needs Assessment: Diet education not indicated. Diet tolerance: tolerating po Nutrition Care Level: low Signed: Ashley Olvera RD, LD, [facility]
[2020-03-17] MEDS: ONDANSETRON HCL INJ 2MG/ML 2ML 2 MG/ML VIAL IV PRN (18:01)
--- NOTE | 2020-03-17 19:32 | NUR ---
PT RESTING IN BED. PT IN STABLE CONDITION. TELE APPLIED. BEDSIDE SHIFT REPORT GIVEN TO ONCOMING NURSE.
[2020-03-18 00:17] VITALS: BP 108/86
[2020-03-18] MEDS: HYDROMORPHONE 1MG/1ML INJ IV PRN ×3 (00:56→11:39)
[2020-03-18] MEDS: ONDANSETRON HCL INJ 2MG/ML 2ML 2 MG/ML VIAL IV PRN ×2 (00:57→08:38)
[2020-03-18] MEDS: DIPHENHYDRAMINE HCL INJ 50 MG/ML VIAL IV SCH ×2 (02:30→08:32)
[2020-03-18] MEDS: CLINDAMYCIN PHOS 900MG/ 50ML 50 ML IV SCH ×2 (03:00→09:55)
[2020-03-18 05:39] VITALS: BP 135/79
--- NOTE | 2020-03-18 05:58 | Discharge Summary ---
DISCHARGE DIAGNOSES: 1. Bilateral lower extremity cellulitis. 2. Lupus. 3. Hypertension. 4. Diabetes. HISTORY OF PRESENT ILLNESS AND HOSPITAL COURSE: See hospital chart for full details. The patient is a lady with history of lupus, who presented with bilateral lower extremity cellulitis secondary to severe edema. She was brought in and placed on IV clindamycin as well as diuretic therapy with significant daily improvement. At the time of discharge, she completed the full course of the treatment. Her legs were back to her baseline without any evidence of redness, swelling was significantly improved, so she was discharged home with continuation of her home medicines with further antibiotics at this time. She will follow up in 1 to 2 weeks with me, please see hospital chart for full details. MD SHARATH Sin/EDVIN /[id number]
--- NOTE | 2020-03-18 07:15 | NUR ---
RECEIVED PT RESTING IN BED SLEEPING. PT IN STABLE CONDITION. RESPIRATIONS EVEN AND BREATHING UNLABORED. CALL LIGHT WITHIN REACH. WILL CONTINUE TO MONITOR.
[2020-03-18 07:54] VITALS: BP 125/76
[2020-03-18] MEDS: FUROSEMIDE INJ 10 MG/ML 4 ML VIAL IV SCH (08:32)
[2020-03-18] MEDS: FLUCONAZOLE 100 MG TAB PO SCH (08:36)
[2020-03-18] MEDS: GLIMEPIRIDE 2 MG TAB PO SCH (08:36)
[2020-03-18] MEDS: PANTOPRAZOLE SOD 40 MG TABEC PO SCH (08:36)
[2020-03-18] MEDS: ATENOLOL 50 MG TAB PO SCH (08:37)
[2020-03-18 09:00] VITALS: BP 125/76
[2020-03-18] MEDS: LISINOPRIL 2.5 MG TAB PO SCH (09:00)
[2020-03-18] MEDS: SERTRALINE HCL 50 MG TAB PO SCH (09:00)
[2020-03-18 11:24] VITALS: BP 125/89
--- NOTE | 2020-03-18 12:56 | NUR ---
PT DISCHARGED TO HOME AND OFF UNIT AT 1241 VIA WHEELCHAIR. ACCOMPANIED BY TECH. PT IN STABLE CONDITION. RESPIRATIONS EVEN AND BREATHING UNLABORED. 2 IV'S REMOVED WITH TIPS INTACT. TELE REMOVED. DISCHARGE PAPERWORK COMPLETED WITH PATIENT AND QUESTIONS ANSWERED. ALL BELONGINGS WITH PATIENT.
== END 2020-03-18 12:41 | disposition home or self-care (01) | DRG 603 ==
LOC: ER 17:07 → ERHOLD 18:40 → MED/SURG3 21:18
PROVIDERS: ADMIT Internal Medicine; ATTEND Internal Medicine
DX: L03.116 Cellulitis of left lower limb (principal); L03.115 Cellulitis of right lower limb; I10 Essential (primary) hypertension; E11.9 Type 2 diabetes mellitus without complications; Z79.4 Long term (current) use of insulin; Z20.828 Contact with and (suspected) exposure to other viral communicable diseases; E66.9 Obesity, unspecified; Z68.31 Body mass index [BMI] 31.0-31.9, adult; F41.9 Anxiety disorder, unspecified; Z79.891 Long term (current) use of opiate analgesic; L93.0 Discoid lupus erythematosus; G89.29 Other chronic pain; K21.9 Gastro-esophageal reflux disease without esophagitis
CPT/HCPCS: 36415; 71045; 80048; 80053; 81001; 82550; 82553; 82948; 83735; 83880; 84484; 85025; 85610; 85730; 87040; 87086; 93970; 99284; J1170; J1200; J1940; J2405; J7030; Q0162; U0002

== ENCOUNTER 2020-05-11 14:25 | Emergency (ER) | payer OTHER ==
[~2020-05-11] VITALS: Ht 162.6 cm; Wt 81.6 kg
[2020-05-11] MEDS ORDERED: CEFTRIAXONE SOD 1 GM VIAL IM ONE (16:00)
[2020-05-11] MEDS ORDERED: LIDOCAINE HCL 1% LOCAL INJ 20 ML VIAL ONE (16:02)
== END 2020-05-11 17:18 | disposition home or self-care (01) ==
LOC: ER 15:36
DX: L03.115 Cellulitis of right lower limb (principal); I10 Essential (primary) hypertension; E11.9 Type 2 diabetes mellitus without complications; E78.5 Hyperlipidemia, unspecified; M32.9 Systemic lupus erythematosus, unspecified; F41.9 Anxiety disorder, unspecified; A69.20 Lyme disease, unspecified
CPT/HCPCS: 99282; J0696; J2001

== ENCOUNTER 2020-10-13 11:40 | Inpatient (IN) | payer OTHER ==
[~2020-10-13] VITALS: Ht 162.6 cm; Wt 68.0 kg
[2020-10-13] MEDS ORDERED: SODIUM CHLORIDE 0.9% 1000ML 1,000 ML IV STA (11:45)
[2020-10-13] MEDS ORDERED: PIPERACILLIN/TAZOBACTAM 3.375 GM in SODIUM CHLORIDE 0.9% 50ML 50 ML IV STA (11:45)
[2020-10-13] MEDS ORDERED: MORPHINE SULFATE INJ 4 MG/ML INJ 1ML IV STA (12:08)
[2020-10-13] MEDS ORDERED: ACETAMINOPHEN 325 MG TAB PO STA (12:08)
[2020-10-13 12:35] LABS: BASOPHILS # (AUTO) 0.1 (0.0-0.1); BASOPHILS % 0.3 % (0.0-1.0); EOSINOPHILS # (AUTO) 0.1 (0.0-0.4); EOSINOPHILS % 0.3 % (0.0-6.0); HEMATOCRIT 42.3 % (34.2-44.1); HEMOGLOBIN 14.1 g/dL (12.0-16.0); LYMPHOCYTES # (AUTO) 2.5 (1.0-3.2); LYMPHOCYTES % 14.3 % (18.0-39.1); MEAN CORPUSCULAR HEMOGLOBIN 33.3 pg (28-32); MEAN CORPUSCULAR HGB CONC 33.3 g/dL (31-35); MEAN CORPUSCULAR VOLUME 99.8 fL (81-99); MONOCYTES # (AUTO) 0.9 (0.2-0.8); MONOCYTES % 5.1 % (4.4-11.3); NEUTROPHILS # (AUTO) 13.6 (2.1-6.9); NEUTROPHILS % 79.2 % (38.7-80.0); PLATELET COUNT 345 x10e3/uL (140-360); RED BLOOD COUNT 4.24 x10e6/uL (3.6-5.1); RED CELL DISTRIBUTION WIDTH 15.3 % (11.7-14.4)
[2020-10-13 12:55] LABS: ALBUMIN/GLOBULIN RATIO 0.7 (0.8-2.0); ANION GAP 14.6 mmol/L (8-16); CREATININE, SERUM 0.8 mg/dL (0.57-1.11); POTASSIUM 3.6 mmol/L (3.5-5.1)
[2020-10-13] MEDS ORDERED: HYDROMORPHONE 1MG/1ML INJ IV STA (13:15)
[2020-10-13] MEDS ORDERED: SODIUM CHLORIDE 0.9% 50ML 50 ML ONE (14:11)
[2020-10-13] MEDS ORDERED: IOPAMIDOL 370 MG/ML 200 ML INFUS..BTL INJ ONE (14:11)
[2020-10-13] MEDS ORDERED: DIPHENHYDRAMINE HCL INJ 50 MG/ML VIAL IV PRN (14:15)
[2020-10-13 16:50] VITALS: BP 110/67
[2020-10-13] MEDS: HYDROMORPHONE 1MG/1ML INJ IV PRN ×3 (16:53→23:04)
[2020-10-13 17:00] VITALS: BP 110/67
[2020-10-13 20:00] VITALS: BP 113/63
[2020-10-13 20:52] VITALS: BP 113/63
[2020-10-14] VITALS (8 sets, daily range): BP systolic 95–133; BP diastolic 57–77
[2020-10-14] MEDS: HYDROMORPHONE 1MG/1ML INJ IV PRN ×7 (02:10→22:46)
[2020-10-14] MEDS ORDERED: CYCLOBENZAPRINE HCL 10 MG TAB PO PRN (05:00)
[2020-10-14] MEDS ORDERED: ALPRAZOLAM 0.25 MG TAB PO PRN (05:00)
[2020-10-14] MEDS: PIPERACILLIN/TAZOBACTAM 3.375 GM in SODIUM CHLORIDE 0.9% 50ML 50 ML IV SCH ×3 (06:00→21:50)
[2020-10-14] MEDS: DIPHENHYDRAMINE HCL 25 MG CAP PO PRN ×2 (06:56→21:50)
[2020-10-14 07:35] LABS: BASOPHILS % 0.2 % (0.0-1.0); EOSINOPHILS # (AUTO) 0.2 (0.0-0.4); EOSINOPHILS % 1.3 % (0.0-6.0); HEMOGLOBIN 12.4 g/dL (12.0-16.0); LYMPHOCYTES # (AUTO) 1.8 (1.0-3.2); LYMPHOCYTES % 13.5 % (18.0-39.1); MEAN CORPUSCULAR HEMOGLOBIN 32.8 pg (28-32); MEAN CORPUSCULAR HGB CONC 32.6 g/dL (31-35); MEAN CORPUSCULAR VOLUME 100.5 fL (81-99); MONOCYTES # (AUTO) 0.7 (0.2-0.8); MONOCYTES % 5.1 % (4.4-11.3); NEUTROPHILS # (AUTO) 10.3 (2.1-6.9); NEUTROPHILS % 79.1 % (38.7-80.0); PLATELET COUNT 305 x10e3/uL (140-360); RED BLOOD COUNT 3.78 x10e6/uL (3.6-5.1)
[2020-10-14 08:01] LABS: ALBUMIN 2.7 g/dL (3.5-5.0); ALBUMIN/GLOBULIN RATIO 0.7 (0.8-2.0); CALCIUM 8.5 mg/dL (8.4-10.2); CREATININE, SERUM 0.75 mg/dL (0.57-1.11)
[2020-10-14] MEDS: ONDANSETRON HCL INJ 2MG/ML 2ML 2 MG/ML VIAL IV PRN ×3 (08:59→22:46)
[2020-10-14] MEDS: GLIMEPIRIDE 2 MG TAB PO SCH ×2 (09:00→15:54)
[2020-10-14] MEDS: FUROSEMIDE INJ 10 MG/ML 4 ML VIAL IV SCH ×2 (09:00→20:03)
[2020-10-14] MEDS: ATENOLOL 50 MG TAB PO SCH ×2 (09:05→16:26)
[2020-10-14] MEDS ORDERED: SODIUM CHLORIDE 0.9% 250ML 250 ML ONE (12:27)
[2020-10-15] VITALS (8 sets, daily range): BP systolic 108–133; BP diastolic 56–86
[2020-10-15] MEDS: HYDROMORPHONE 1MG/1ML INJ IV PRN ×6 (03:09→21:21)
[2020-10-15] MEDS: PIPERACILLIN/TAZOBACTAM 3.375 GM in SODIUM CHLORIDE 0.9% 50ML 50 ML IV SCH ×4 (05:18→23:12)
[2020-10-15] MEDS ORDERED: FLUCONAZOLE 100 MG TAB PO ONE (07:30)
[2020-10-15] MEDS: FUROSEMIDE INJ 10 MG/ML 4 ML VIAL IV SCH ×2 (09:06→20:50)
[2020-10-15] MEDS: GLIMEPIRIDE 2 MG TAB PO SCH ×2 (09:06→16:10)
[2020-10-15] MEDS: ATENOLOL 50 MG TAB PO SCH ×2 (09:06→16:10)
[2020-10-15] MEDS: ONDANSETRON HCL INJ 2MG/ML 2ML 2 MG/ML VIAL IV PRN ×2 (11:35→18:11)
[2020-10-15] MEDS: DIPHENHYDRAMINE HCL 25 MG CAP PO PRN ×3 (12:41→23:12)
[2020-10-15] MEDS: LOPERAMIDE HCL 2 MG CAP PO PRN (21:00)
[2020-10-16] VITALS (7 sets, daily range): BP systolic 125–140; BP diastolic 66–86
[2020-10-16] MEDS: HYDROMORPHONE 1MG/1ML INJ IV PRN ×8 (00:32→22:21)
[2020-10-16] MEDS: ONDANSETRON HCL INJ 2MG/ML 2ML 2 MG/ML VIAL IV PRN ×4 (00:32→19:06)
[2020-10-16] MEDS: PIPERACILLIN/TAZOBACTAM 3.375 GM in SODIUM CHLORIDE 0.9% 50ML 50 ML IV SCH ×4 (05:15→23:51)
[2020-10-16] MEDS: DIPHENHYDRAMINE HCL 25 MG CAP PO PRN ×4 (05:16→23:51)
[2020-10-16 05:31] LABS: BASOPHILS # (AUTO) 0.1 (0.0-0.1); BASOPHILS % 0.4 % (0.0-1.0); EOSINOPHILS # (AUTO) 0.2 (0.0-0.4); EOSINOPHILS % 1.9 % (0.0-6.0); HEMATOCRIT 40.5 % (34.2-44.1); HEMOGLOBIN 13.4 g/dL (12.0-16.0); LYMPHOCYTES # (AUTO) 2.4 (1.0-3.2); LYMPHOCYTES % 19.3 % (18.0-39.1); MEAN CORPUSCULAR HEMOGLOBIN 32.8 pg (28-32); MEAN CORPUSCULAR HGB CONC 33.1 g/dL (31-35); MONOCYTES # (AUTO) 1.1 (0.2-0.8); MONOCYTES % 8.9 % (4.4-11.3); NEUTROPHILS # (AUTO) 8.4 (2.1-6.9); NEUTROPHILS % 67.8 % (38.7-80.0); PLATELET COUNT 409 x10e3/uL (140-360); RED BLOOD COUNT 4.09 x10e6/uL (3.6-5.1); RED CELL DISTRIBUTION WIDTH 14.6 % (11.7-14.4)
[2020-10-16 05:45] LABS: ALBUMIN/GLOBULIN RATIO 0.7 (0.8-2.0); ANION GAP 15.2 mmol/L (8-16); CALCIUM 8.7 mg/dL (8.4-10.2); CREATININE, SERUM 0.88 mg/dL (0.57-1.11); POTASSIUM 3.2 mmol/L (3.5-5.1)
[2020-10-16] MEDS: LOPERAMIDE HCL 2 MG CAP PO PRN ×2 (06:14→22:53)
[2020-10-16] MEDS: FUROSEMIDE INJ 10 MG/ML 4 ML VIAL IV SCH ×2 (08:00→21:49)
[2020-10-16] MEDS ORDERED: POTASSIUM CHLORIDE 20 MEQ TAB CR PO ONE (08:00)
[2020-10-16] MEDS: GLIMEPIRIDE 2 MG TAB PO SCH ×2 (08:00→16:07)
[2020-10-16] MEDS: ATENOLOL 50 MG TAB PO SCH ×2 (08:01→16:07)
[2020-10-16] MEDS: ENOXAPARIN 30 MG/0.3 ML SYR SC SCH (16:07)
[2020-10-17] VITALS (7 sets, daily range): BP systolic 126–139; BP diastolic 60–80
[2020-10-17] MEDS: HYDROMORPHONE 1MG/1ML INJ IV PRN ×7 (01:35→21:32)
[2020-10-17] MEDS: ONDANSETRON HCL INJ 2MG/ML 2ML 2 MG/ML VIAL IV PRN ×2 (01:35→09:07)
[2020-10-17] MEDS: FUROSEMIDE INJ 10 MG/ML 4 ML VIAL IV SCH ×2 (05:13→09:06)
[2020-10-17] MEDS: PIPERACILLIN/TAZOBACTAM 3.375 GM in SODIUM CHLORIDE 0.9% 50ML 50 ML IV SCH ×3 (05:14→18:00)
[2020-10-17] MEDS: DIPHENHYDRAMINE HCL 25 MG CAP PO PRN ×2 (05:14→11:30)
[2020-10-17 05:58] LABS: BASOPHILS # (AUTO) 0.1 (0.0-0.1); BASOPHILS % 0.7 % (0.0-1.0); EOSINOPHILS # (AUTO) 0.3 (0.0-0.4); EOSINOPHILS % 1.9 % (0.0-6.0); HEMATOCRIT 41.2 % (34.2-44.1); HEMOGLOBIN 13.7 g/dL (12.0-16.0); LYMPHOCYTES # (AUTO) 3.4 (1.0-3.2); LYMPHOCYTES % 23.5 % (18.0-39.1); MEAN CORPUSCULAR HEMOGLOBIN 32.7 pg (28-32); MEAN CORPUSCULAR HGB CONC 33.3 g/dL (31-35); MEAN CORPUSCULAR VOLUME 98.3 fL (81-99); MONOCYTES # (AUTO) 1.1 (0.2-0.8); MONOCYTES % 7.7 % (4.4-11.3); NEUTROPHILS # (AUTO) 9.2 (2.1-6.9); NEUTROPHILS % 63.7 % (38.7-80.0); PLATELET COUNT 413 x10e3/uL (140-360); RED BLOOD COUNT 4.19 x10e6/uL (3.6-5.1); RED CELL DISTRIBUTION WIDTH 14.4 % (11.7-14.4)
[2020-10-17 06:26] LABS: ALBUMIN 3.1 g/dL (3.5-5.0); ALBUMIN/GLOBULIN RATIO 0.7 (0.8-2.0); ANION GAP 14.4 mmol/L (8-16); CALCIUM 9.1 mg/dL (8.4-10.2); CREATININE, SERUM 0.81 mg/dL (0.57-1.11); MAGNESIUM 2.1 MG/DL (1.3-2.1); POTASSIUM 3.4 mmol/L (3.5-5.1)
[2020-10-17] MEDS: GLIMEPIRIDE 2 MG TAB PO SCH ×2 (07:42→17:34)
[2020-10-17] MEDS ORDERED: POTASSIUM CHLORIDE 20 MEQ TAB CR PO STA (08:37)
[2020-10-17] MEDS: ATENOLOL 50 MG TAB PO SCH ×2 (09:06→17:35)
[2020-10-17] MEDS: LOPERAMIDE HCL 2 MG CAP PO PRN (09:34)
[2020-10-17] MEDS: ENOXAPARIN 30 MG/0.3 ML SYR SC SCH (17:35)
[2020-10-18] VITALS (8 sets, daily range): BP systolic 118–140; BP diastolic 63–76
[2020-10-18] MEDS: HYDROMORPHONE 1MG/1ML INJ IV PRN ×7 (00:20→22:47)
[2020-10-18] MEDS: DIPHENHYDRAMINE HCL 25 MG CAP PO PRN ×4 (00:35→17:28)
[2020-10-18] MEDS: PIPERACILLIN/TAZOBACTAM 3.375 GM in SODIUM CHLORIDE 0.9% 50ML 50 ML IV SCH ×5 (05:43→18:04)
[2020-10-18] MEDS: LOPERAMIDE HCL 2 MG CAP PO PRN ×3 (06:35→22:50)
[2020-10-18] MEDS: GLIMEPIRIDE 2 MG TAB PO SCH ×2 (08:30→17:26)
[2020-10-18] MEDS: ATENOLOL 50 MG TAB PO SCH ×2 (08:30→17:27)
[2020-10-18] MEDS: FUROSEMIDE INJ 10 MG/ML 4 ML VIAL IV SCH (08:33)
[2020-10-18] MEDS: ONDANSETRON HCL INJ 2MG/ML 2ML 2 MG/ML VIAL IV PRN ×2 (11:33→22:47)
[2020-10-18] MEDS: ENOXAPARIN 30 MG/0.3 ML SYR SC SCH (17:27)
[2020-10-19] VITALS (7 sets, daily range): BP systolic 124–144; BP diastolic 60–78
[2020-10-19] MEDS: PIPERACILLIN/TAZOBACTAM 3.375 GM in SODIUM CHLORIDE 0.9% 50ML 50 ML IV SCH ×5 (05:26→17:54)
[2020-10-19] MEDS: DIPHENHYDRAMINE HCL 25 MG CAP PO PRN ×4 (05:27→17:13)
[2020-10-19] MEDS: HYDROMORPHONE 1MG/1ML INJ IV PRN ×6 (05:27→21:06)
[2020-10-19 05:44] LABS: BASOPHILS # (AUTO) 0.1 (0.0-0.1); BASOPHILS % 0.7 % (0.0-1.0); EOSINOPHILS # (AUTO) 0.2 (0.0-0.4); EOSINOPHILS % 1.8 % (0.0-6.0); HEMATOCRIT 40.2 % (34.2-44.1); HEMOGLOBIN 13.3 g/dL (12.0-16.0); LYMPHOCYTES # (AUTO) 3.6 (1.0-3.2); MEAN CORPUSCULAR HEMOGLOBIN 32.6 pg (28-32); MEAN CORPUSCULAR HGB CONC 33.1 g/dL (31-35); MEAN CORPUSCULAR VOLUME 98.5 fL (81-99); MONOCYTES # (AUTO) 0.9 (0.2-0.8); MONOCYTES % 6.5 % (4.4-11.3); NEUTROPHILS # (AUTO) 8.4 (2.1-6.9); NEUTROPHILS % 61.1 % (38.7-80.0); PLATELET COUNT 427 x10e3/uL (140-360); RED BLOOD COUNT 4.08 x10e6/uL (3.6-5.1); RED CELL DISTRIBUTION WIDTH 14.1 % (11.7-14.4)
[2020-10-19 06:05] LABS: CALCIUM 9.1 mg/dL (8.4-10.2); CREATININE, SERUM 0.72 mg/dL (0.57-1.11)
[2020-10-19] MEDS ORDERED: POTASSIUM CHLORIDE 20 MEQ TAB CR PO ONE (07:00)
[2020-10-19] MEDS: GLIMEPIRIDE 2 MG TAB PO SCH ×2 (08:27→17:13)
[2020-10-19] MEDS: FUROSEMIDE INJ 10 MG/ML 4 ML VIAL IV SCH (08:27)
[2020-10-19] MEDS: LOPERAMIDE HCL 2 MG CAP PO PRN ×3 (08:27→21:16)
[2020-10-19] MEDS: ATENOLOL 50 MG TAB PO SCH ×2 (08:27→17:14)
[2020-10-19] MEDS: ONDANSETRON HCL INJ 2MG/ML 2ML 2 MG/ML VIAL IV PRN ×2 (08:29→17:55)
[2020-10-19] MEDS: ENOXAPARIN 30 MG/0.3 ML SYR SC SCH (17:13)
[2020-10-20] VITALS (7 sets, daily range): BP systolic 103–142; BP diastolic 54–91
[2020-10-20] MEDS: HYDROMORPHONE 1MG/1ML INJ IV PRN ×8 (00:31→23:43)
[2020-10-20] MEDS: PIPERACILLIN/TAZOBACTAM 3.375 GM in SODIUM CHLORIDE 0.9% 50ML 50 ML IV SCH ×5 (00:31→23:36)
[2020-10-20] MEDS: DIPHENHYDRAMINE HCL 25 MG CAP PO PRN ×3 (00:31→12:00)
[2020-10-20] MEDS: ONDANSETRON HCL INJ 2MG/ML 2ML 2 MG/ML VIAL IV PRN ×5 (00:31→20:43)
[2020-10-20] MEDS ORDERED: SODIUM CHLORIDE 0.9% 250ML 250 ML ONE (04:59)
[2020-10-20] MEDS: LOPERAMIDE HCL 2 MG CAP PO PRN ×2 (05:26→12:00)
[2020-10-20] MEDS: FUROSEMIDE INJ 10 MG/ML 4 ML VIAL IV SCH (09:10)
[2020-10-20] MEDS: GLIMEPIRIDE 2 MG TAB PO SCH ×2 (09:10→17:46)
[2020-10-20] MEDS: ATENOLOL 50 MG TAB PO SCH ×2 (09:10→17:00)
[2020-10-20] MEDS: ENOXAPARIN 30 MG/0.3 ML SYR SC SCH (17:46)
[2020-10-21] VITALS (10 sets, daily range): BP systolic 106–122; BP diastolic 53–68
[2020-10-21] MEDS: HYDROMORPHONE 1MG/1ML INJ IV PRN ×6 (04:31→21:07)
[2020-10-21] MEDS: ONDANSETRON HCL INJ 2MG/ML 2ML 2 MG/ML VIAL IV PRN ×4 (04:32→21:07)
[2020-10-21] MEDS: PIPERACILLIN/TAZOBACTAM 3.375 GM in SODIUM CHLORIDE 0.9% 50ML 50 ML IV SCH ×4 (05:54→23:44)
[2020-10-21 05:58] LABS: BASOPHILS # (AUTO) 0.1 (0.0-0.1); BASOPHILS % 0.6 % (0.0-1.0); EOSINOPHILS # (AUTO) 0.2 (0.0-0.4); EOSINOPHILS % 1.8 % (0.0-6.0); HEMATOCRIT 33.8 % (34.2-44.1); LYMPHOCYTES # (AUTO) 3.2 (1.0-3.2); LYMPHOCYTES % 27.1 % (18.0-39.1); MEAN CORPUSCULAR HEMOGLOBIN 32.6 pg (28-32); MEAN CORPUSCULAR HGB CONC 32.5 g/dL (31-35); MEAN CORPUSCULAR VOLUME 100.3 fL (81-99); MONOCYTES # (AUTO) 0.8 (0.2-0.8); MONOCYTES % 6.6 % (4.4-11.3); NEUTROPHILS % 59.6 % (38.7-80.0); PLATELET COUNT 407 x10e3/uL (140-360); RED BLOOD COUNT 3.37 x10e6/uL (3.6-5.1)
[2020-10-21 06:16] LABS: ALBUMIN 2.5 g/dL (3.5-5.0); ALBUMIN/GLOBULIN RATIO 0.8 (0.8-2.0); CALCIUM 8.3 mg/dL (8.4-10.2); CREATININE, SERUM 0.72 mg/dL (0.57-1.11); MAGNESIUM 1.7 MG/DL (1.3-2.1)
[2020-10-21] MEDS: GLIMEPIRIDE 2 MG TAB PO SCH ×2 (08:11→17:41)
[2020-10-21] MEDS: FUROSEMIDE INJ 10 MG/ML 4 ML VIAL IV SCH (08:11)
[2020-10-21] MEDS: ATENOLOL 50 MG TAB PO SCH ×2 (08:12→17:41)
[2020-10-21] MEDS: LOPERAMIDE HCL 2 MG CAP PO PRN (08:21)
[2020-10-21] MEDS ORDERED: POTASSIUM CHLORIDE 20 MEQ TAB CR PO ONE (11:00)
[2020-10-21] MEDS: ENOXAPARIN 30 MG/0.3 ML SYR SC SCH (17:41)
[2020-10-22] VITALS (7 sets, daily range): BP systolic 108–134; BP diastolic 59–79
[2020-10-22] MEDS: HYDROMORPHONE 1MG/1ML INJ IV PRN ×8 (00:34→23:12)
[2020-10-22] MEDS: ONDANSETRON HCL INJ 2MG/ML 2ML 2 MG/ML VIAL IV PRN ×5 (04:18→20:12)
[2020-10-22] MEDS: PIPERACILLIN/TAZOBACTAM 3.375 GM in SODIUM CHLORIDE 0.9% 50ML 50 ML IV SCH ×4 (05:47→23:18)
[2020-10-22] MEDS: ATENOLOL 50 MG TAB PO SCH ×2 (08:30→17:11)
[2020-10-22] MEDS: FUROSEMIDE INJ 10 MG/ML 4 ML VIAL IV SCH (10:46)
[2020-10-22] MEDS: GLIMEPIRIDE 2 MG TAB PO SCH ×2 (10:46→17:11)
[2020-10-22] MEDS: LOPERAMIDE HCL 2 MG CAP PO PRN ×2 (12:17→23:18)
[2020-10-22] MEDS ORDERED: ALTEPLASE RECOMBINANT 2 MG/2 ML VIAL IV ONE (12:30)
[2020-10-22] MEDS: ENOXAPARIN 30 MG/0.3 ML SYR SC SCH (17:11)
[2020-10-22] MEDS: DIPHENHYDRAMINE HCL 25 MG CAP PO PRN ×2 (18:04→23:18)
[2020-10-23] MEDS: HYDROMORPHONE 1MG/1ML INJ IV PRN ×3 (02:13→08:15)
[2020-10-23] MEDS: ONDANSETRON HCL INJ 2MG/ML 2ML 2 MG/ML VIAL IV PRN (02:13)
[2020-10-23 04:40] VITALS: BP 126/76
[2020-10-23] MEDS: PIPERACILLIN/TAZOBACTAM 3.375 GM in SODIUM CHLORIDE 0.9% 50ML 50 ML IV SCH (05:33)
[2020-10-23] MEDS ORDERED: DOXYCYCLINE HY100 MG PO (05:41)
[2020-10-23 08:02] VITALS: BP 131/91
[2020-10-23] MEDS: GLIMEPIRIDE 2 MG TAB PO SCH (08:14)
[2020-10-23] MEDS: FUROSEMIDE INJ 10 MG/ML 4 ML VIAL IV SCH (08:14)
[2020-10-23] MEDS: ATENOLOL 50 MG TAB PO SCH (08:15)
[2020-10-23 08:46] VITALS: BP 131/91
== END 2020-10-23 09:35 | disposition home or self-care (01) | DRG 872 ==
LOC: ER 12:28 → ERHOLD 14:08 → MED/SURG3 16:47
PROVIDERS: ADMIT Internal Medicine; ATTEND Internal Medicine
PROC: 02HV33Z Insertion of Infusion Device into Superior Vena Cava, Percutaneous Approach (ICD-10-PCS; principal; 2020-10-14)
DX: A41.9 Sepsis, unspecified organism (principal); L03.115 Cellulitis of right lower limb; T81.31XA Disruption of external operation (surgical) wound, not elsewhere classified, initial encounter; S81.811A Laceration without foreign body, right lower leg, initial encounter; M32.9 Systemic lupus erythematosus, unspecified; I10 Essential (primary) hypertension; E11.9 Type 2 diabetes mellitus without complications; Z90.49 Acquired absence of other specified parts of digestive tract; Z72.0 Tobacco use; Z88.8 Allergy status to other drugs, medicaments and biological substances; Z88.1 Allergy status to other antibiotic agents; Z91.041 Radiographic dye allergy status; Z91.013 Allergy to seafood; E87.6 Hypokalemia; F41.9 Anxiety disorder, unspecified; I89.0 Lymphedema, not elsewhere classified; Z91.19 Patient's noncompliance with other medical treatment and regimen; R53.81 Other malaise
CPT/HCPCS: 36415; 36569; 71045; 80048; 80053; 82948; 83605; 83735; 85025; 87040; 97139; 99284; 99285; J1170; J1650; J1940; J2270; J2405; J2543; J2997; J7030; J7050; Q9967

== ENCOUNTER 2021-03-09 17:50 | Emergency (ER) | payer OTHER ==
[~2021-03-09] VITALS: Ht 315 cm; Wt 68.0 kg
[2021-03-09] MEDS ORDERED: CEPHALEXIN500 MG PO (18:26)
[2021-03-09] MEDS ORDERED: DOXYCYCLINE HY100 MG PO (18:26)
[2021-03-09] MEDS ORDERED: ONDANSETRON ODT8 MG PO (18:27)
== END 2021-03-09 18:47 | disposition home or self-care (01) ==
LOC: ER 18:05
DX: Z48.01 Encounter for change or removal of surgical wound dressing (principal); I10 Essential (primary) hypertension; E11.9 Type 2 diabetes mellitus without complications; E78.5 Hyperlipidemia, unspecified; M32.9 Systemic lupus erythematosus, unspecified; A69.20 Lyme disease, unspecified
CPT/HCPCS: 99283

== ENCOUNTER 2021-03-14 20:44 | Inpatient (IN) | payer OTHER ==
[~2021-03-14] VITALS: Ht 162.6 cm; Wt 68.0 kg
[~2021-03-14 20:44] MED LIST changes: +CEPHALEXIN500 MG PO; +ONDANSETRON ODT8 MG PO
[2021-03-14] MEDS ORDERED: Cefazolin 1 GM in SODIUM CHLORIDE 0.9% 50ML 50 ML IV ONE (21:15)
[2021-03-14] MEDS ORDERED: Morphine 4mg Syringe 4 MG/ML INJ IV ONE (21:15)
[2021-03-14] MEDS ORDERED: ONDANSETRON HCL INJ 2MG/ML 2ML 2 MG/ML VIAL ONE (21:18)
[2021-03-14] MEDS ORDERED: Morphine 4mg Syringe 4 MG/ML INJ ONE (21:19)
[2021-03-14 21:20] LABS: BASOPHILS # (AUTO) 0.1 (0.0-0.1); BASOPHILS % 0.5 % (0.0-1.0); EOSINOPHILS % 0.2 % (0.0-6.0); HEMATOCRIT 38.5 % (34.2-44.1); HEMOGLOBIN 12.9 g/dL (12.0-16.0); LYMPHOCYTES # (AUTO) 3.7 (1.0-3.2); MEAN CORPUSCULAR HEMOGLOBIN 33.7 pg (28-32); MEAN CORPUSCULAR HGB CONC 33.5 g/dL (31-35); MEAN CORPUSCULAR VOLUME 100.5 fL (81-99); MONOCYTES % 6.9 % (4.4-11.3); NEUTROPHILS # (AUTO) 9.5 (2.1-6.9); NEUTROPHILS % 64.7 % (38.7-80.0); PLATELET COUNT 569 x10e3/uL (140-360); RED BLOOD COUNT 3.83 x10e6/uL (3.6-5.1); RED CELL DISTRIBUTION WIDTH 14.8 % (11.7-14.4)
[2021-03-14 21:33] LABS: ALBUMIN 3.3 g/dL (3.5-5.0); ALBUMIN/GLOBULIN RATIO 0.8 (0.8-2.0); ANION GAP 16.2 mmol/L (8-16); CALCIUM 8.8 mg/dL (8.4-10.2); CREATININE, SERUM 0.82 mg/dL (0.57-1.11); POTASSIUM 5.2 mmol/L (3.5-5.1)
[2021-03-14] MEDS ORDERED: CYCLOBENZAPRINE HCL 10 MG TAB PO PRN (23:00)
[2021-03-14] MEDS ORDERED: FUROSEMIDE 40 MG TAB PO PRN (23:00)
[2021-03-14] MEDS ORDERED: LISINOPRIL 2.5 MG TAB PO PRN (23:00)
[2021-03-14] MEDS ORDERED: SERTRALINE HCL 50 MG TAB PO PRN (23:00)
[2021-03-14] MEDS ORDERED: ALPRAZOLAM 0.25 MG TAB PO PRN (23:00)
[2021-03-14 23:15] VITALS: BP 142/90
[2021-03-14 23:50] VITALS: BP 142/90
[2021-03-14] MEDS: HYDROMORPHONE 1MG/1ML INJ IV PRN (23:51)
[2021-03-15] VITALS: BP 121/94
[2021-03-15] MEDS: HYDROMORPHONE 1MG/1ML INJ IV PRN ×8 (00:15→22:13)
[2021-03-15 04:00] VITALS: BP 137/82
[2021-03-15] MEDS ORDERED: SODIUM CHLORIDE 0.9% 250ML 250 ML ONE (05:37)
[2021-03-15] MEDS ORDERED: Cefazolin 1 GM in SODIUM CHLORIDE 0.9% 50ML 50 ML IV SCH (06:00)
[2021-03-15 07:38] VITALS: BP 137/82
[2021-03-15] MEDS: GLIMEPIRIDE 2 MG TAB PO SCH ×2 (08:38→17:50)
[2021-03-15] MEDS: HYDROCODONE/APAP 10MG-325MG TAB PO PRN ×2 (08:49→14:53)
[2021-03-15] MEDS ORDERED: ONDANSETRON HCL 4 MG ORAL DISINTEGRATING TAB PO SCH (09:00)
[2021-03-15] MEDS: ONDANSETRON HCL INJ 2MG/ML 2ML 2 MG/ML VIAL IV PRN ×2 (09:40→19:15)
[2021-03-15] MEDS: DIPHENHYDRAMINE HCL 25 MG CAP PO PRN ×2 (14:49→22:00)
[2021-03-15] MEDS: CEFEPIME 1 GM in SODIUM CHLORIDE 0.9% 50ML 50 ML IV SCH ×2 (15:26→21:54)
[2021-03-15] MEDS: FLUCONAZOLE 200 MG/100 ML 100 ML IV SCH (16:31)
[2021-03-15] MEDS: NYSTATIN SUSPENSION 5 ML UDC PO SCH (17:50)
[2021-03-15] MEDS: LINEZOLID 600 MG/D5W 300ML 300 ML IV SCH (18:29)
[2021-03-15 20:00] VITALS: BP 145/84
[2021-03-15 21:00] VITALS: BP 145/84
[2021-03-15] MEDS ORDERED: PANTOPRAZOLE SOD 40 MG TABEC PO ONE (22:00)
[2021-03-16] VITALS (7 sets, daily range): BP systolic 104–139; BP diastolic 63–81
[2021-03-16] MEDS: NYSTATIN SUSPENSION 5 ML UDC PO SCH ×5 (00:50→23:40)
[2021-03-16] MEDS: LINEZOLID 600 MG/D5W 300ML 300 ML IV SCH ×2 (01:13→13:30)
[2021-03-16] MEDS: HYDROMORPHONE 1MG/1ML INJ IV PRN ×8 (01:15→23:40)
[2021-03-16] MEDS: DIPHENHYDRAMINE HCL 25 MG CAP PO PRN (05:19)
[2021-03-16] MEDS: ONDANSETRON HCL INJ 2MG/ML 2ML 2 MG/ML VIAL IV PRN ×3 (05:20→17:00)
[2021-03-16] MEDS: CEFEPIME 1 GM in SODIUM CHLORIDE 0.9% 50ML 50 ML IV SCH ×3 (05:22→23:39)
[2021-03-16 05:58] LABS: BASOPHILS % 0.3 % (0.0-1.0); EOSINOPHILS % 0.2 % (0.0-6.0); HEMATOCRIT 36.7 % (34.2-44.1); HEMOGLOBIN 11.9 g/dL (12.0-16.0); LYMPHOCYTES # (AUTO) 2.5 (1.0-3.2); LYMPHOCYTES % 20.2 % (18.0-39.1); MEAN CORPUSCULAR HEMOGLOBIN 33.2 pg (28-32); MEAN CORPUSCULAR HGB CONC 32.4 g/dL (31-35); MEAN CORPUSCULAR VOLUME 102.5 fL (81-99); MONOCYTES # (AUTO) 1.2 (0.2-0.8); MONOCYTES % 9.4 % (4.4-11.3); NEUTROPHILS # (AUTO) 8.6 (2.1-6.9); NEUTROPHILS % 68.2 % (38.7-80.0); PLATELET COUNT 510 x10e3/uL (140-360); RED BLOOD COUNT 3.58 x10e6/uL (3.6-5.1); RED CELL DISTRIBUTION WIDTH 14.5 % (11.7-14.4)
[2021-03-16 06:30] LABS: ALBUMIN 3.1 g/dL (3.5-5.0); ALBUMIN/GLOBULIN RATIO 0.8 (0.8-2.0); CALCIUM 8.7 mg/dL (8.4-10.2); CREATININE, SERUM 0.88 mg/dL (0.57-1.11); MAGNESIUM 1.9 MG/DL (1.3-2.1)
[2021-03-16] MEDS: GLIMEPIRIDE 2 MG TAB PO SCH ×2 (08:00→17:00)
[2021-03-16] MEDS: PANTOPRAZOLE SOD 40 MG TABEC PO SCH (08:50)
[2021-03-16] MEDS: HYDROCODONE/APAP 10MG-325MG TAB PO PRN (12:13)
[2021-03-16] MEDS: FLUCONAZOLE 200 MG/100 ML 100 ML IV SCH (13:30)
[2021-03-17] VITALS (7 sets, daily range): BP systolic 109–150; BP diastolic 61–86
[2021-03-17] MEDS: LINEZOLID 600 MG/D5W 300ML 300 ML IV SCH ×2 (02:50→14:04)
[2021-03-17] MEDS: HYDROMORPHONE 1MG/1ML INJ IV PRN ×7 (02:51→22:47)
[2021-03-17] MEDS: NYSTATIN SUSPENSION 5 ML UDC PO SCH ×3 (05:07→17:04)
[2021-03-17] MEDS: CEFEPIME 1 GM in SODIUM CHLORIDE 0.9% 50ML 50 ML IV SCH ×3 (05:07→22:47)
[2021-03-17] MEDS: ONDANSETRON HCL INJ 2MG/ML 2ML 2 MG/ML VIAL IV PRN ×2 (05:26→22:47)
[2021-03-17] MEDS: GLIMEPIRIDE 2 MG TAB PO SCH ×2 (09:06→15:58)
[2021-03-17] MEDS: PANTOPRAZOLE SOD 40 MG TABEC PO SCH (09:06)
[2021-03-17] MEDS: PROMETHAZINE HCL 25 MG TAB PO PRN (12:45)
[2021-03-17] MEDS ORDERED: SODIUM CHLORIDE 0.9% 250ML 250 ML ONE (13:02)
[2021-03-17] MEDS: FLUCONAZOLE 200 MG/100 ML 100 ML IV SCH (13:13)
[2021-03-18] VITALS (7 sets, daily range): BP systolic 120–143; BP diastolic 66–82
[2021-03-18] MEDS: LINEZOLID 600 MG/D5W 300ML 300 ML IV SCH ×2 (01:51→13:38)
[2021-03-18] MEDS: NYSTATIN SUSPENSION 5 ML UDC PO SCH ×4 (01:51→17:39)
[2021-03-18] MEDS: HYDROMORPHONE 1MG/1ML INJ IV PRN ×6 (01:52→19:17)
[2021-03-18] MEDS: ONDANSETRON HCL INJ 2MG/ML 2ML 2 MG/ML VIAL IV PRN (05:01)
[2021-03-18] MEDS: CEFEPIME 1 GM in SODIUM CHLORIDE 0.9% 50ML 50 ML IV SCH ×3 (05:01→22:13)
[2021-03-18] MEDS: GLIMEPIRIDE 2 MG TAB PO SCH ×2 (08:27→16:19)
[2021-03-18] MEDS: PANTOPRAZOLE SOD 40 MG TABEC PO SCH (08:27)
[2021-03-18] MEDS: FLUCONAZOLE 200 MG/100 ML 100 ML IV SCH (12:04)
[2021-03-18] MEDS: HYDROCODONE/APAP 10MG-325MG TAB PO PRN ×2 (13:38→17:39)
[2021-03-19] VITALS (7 sets, daily range): BP systolic 105–154; BP diastolic 64–84
[2021-03-19] MEDS: LINEZOLID 600 MG/D5W 300ML 300 ML IV SCH ×2 (01:30→13:21)
[2021-03-19] MEDS: ONDANSETRON HCL INJ 2MG/ML 2ML 2 MG/ML VIAL IV PRN ×2 (04:30→17:11)
[2021-03-19] MEDS: HYDROMORPHONE 1MG/1ML INJ IV PRN ×6 (04:30→23:30)
[2021-03-19] MEDS: CEFEPIME 1 GM in SODIUM CHLORIDE 0.9% 50ML 50 ML IV SCH ×3 (05:35→22:00)
[2021-03-19] MEDS: NYSTATIN SUSPENSION 5 ML UDC PO SCH ×5 (05:37→23:58)
[2021-03-19 07:08] LABS: BASOPHILS # (AUTO) 0.1 (0.0-0.1); BASOPHILS % 0.5 % (0.0-1.0); EOSINOPHILS % 0.3 % (0.0-6.0); HEMATOCRIT 36.1 % (34.2-44.1); HEMOGLOBIN 11.5 g/dL (12.0-16.0); LYMPHOCYTES # (AUTO) 2.4 (1.0-3.2); LYMPHOCYTES % 25.3 % (18.0-39.1); MEAN CORPUSCULAR HEMOGLOBIN 33.5 pg (28-32); MEAN CORPUSCULAR HGB CONC 31.9 g/dL (31-35); MEAN CORPUSCULAR VOLUME 105.2 fL (81-99); MONOCYTES # (AUTO) 0.8 (0.2-0.8); MONOCYTES % 7.9 % (4.4-11.3); NEUTROPHILS # (AUTO) 6.3 (2.1-6.9); NEUTROPHILS % 64.7 % (38.7-80.0); PLATELET COUNT 433 x10e3/uL (140-360); RED BLOOD COUNT 3.43 x10e6/uL (3.6-5.1); RED CELL DISTRIBUTION WIDTH 14.6 % (11.7-14.4)
[2021-03-19 07:28] LABS: ALBUMIN 2.9 g/dL (3.5-5.0); ALBUMIN/GLOBULIN RATIO 0.9 (0.8-2.0); ANION GAP 14.1 mmol/L (8-16); CALCIUM 8.5 mg/dL (8.4-10.2); CREATININE, SERUM 0.75 mg/dL (0.57-1.11); POTASSIUM 4.1 mmol/L (3.5-5.1)
[2021-03-19] MEDS: GLIMEPIRIDE 2 MG TAB PO SCH ×2 (08:21→17:11)
[2021-03-19] MEDS: PANTOPRAZOLE SOD 40 MG TABEC PO SCH (08:21)
[2021-03-19] MEDS: FLUCONAZOLE 200 MG/100 ML 100 ML IV SCH (13:21)
[2021-03-19] MEDS: HYDROCODONE/APAP 10MG-325MG TAB PO PRN (14:42)
[2021-03-20] VITALS (9 sets, daily range): BP systolic 111–147; BP diastolic 56–81
[2021-03-20] MEDS: LINEZOLID 600 MG/D5W 300ML 300 ML IV SCH ×2 (01:30→13:47)
[2021-03-20] MEDS: HYDROMORPHONE 1MG/1ML INJ IV PRN ×6 (03:30→22:05)
[2021-03-20] MEDS: CEFEPIME 1 GM in SODIUM CHLORIDE 0.9% 50ML 50 ML IV SCH ×3 (06:00→22:05)
[2021-03-20] MEDS: NYSTATIN SUSPENSION 5 ML UDC PO SCH ×3 (06:00→18:00)
[2021-03-20] MEDS: PANTOPRAZOLE SOD 40 MG TABEC PO SCH (08:50)
[2021-03-20] MEDS: MUPIROCIN 2% OINT 22 GM TUBE TOP SCH (08:50)
[2021-03-20] MEDS: GLIMEPIRIDE 2 MG TAB PO SCH ×2 (08:50→16:18)
[2021-03-20] MEDS: LOPERAMIDE HCL 2 MG CAP PO PRN (13:07)
[2021-03-20] MEDS: HYDROCODONE/APAP 10MG-325MG TAB PO PRN (13:07)
[2021-03-20] MEDS: FLUCONAZOLE 200 MG/100 ML 100 ML IV SCH (13:47)
[2021-03-20] MEDS: ONDANSETRON HCL INJ 2MG/ML 2ML 2 MG/ML VIAL IV PRN (14:20)
[2021-03-21] VITALS (9 sets, daily range): BP systolic 118–158; BP diastolic 65–85
[2021-03-21] MEDS: HYDROMORPHONE 1MG/1ML INJ IV PRN ×8 (01:05→22:15)
[2021-03-21] MEDS: LINEZOLID 600 MG/D5W 300ML 300 ML IV SCH ×2 (01:14→14:33)
[2021-03-21] MEDS: NYSTATIN SUSPENSION 5 ML UDC PO SCH ×5 (01:14→23:36)
[2021-03-21] MEDS: CEFEPIME 1 GM in SODIUM CHLORIDE 0.9% 50ML 50 ML IV SCH ×3 (06:53→22:15)
[2021-03-21] MEDS: ONDANSETRON HCL INJ 2MG/ML 2ML 2 MG/ML VIAL IV PRN ×3 (07:00→19:05)
[2021-03-21] MEDS: GLIMEPIRIDE 2 MG TAB PO SCH ×2 (09:46→16:10)
[2021-03-21] MEDS: PANTOPRAZOLE SOD 40 MG TABEC PO SCH (09:46)
[2021-03-21] MEDS: MUPIROCIN 2% OINT 22 GM TUBE TOP SCH (09:47)
[2021-03-21] MEDS: FLUCONAZOLE 200 MG/100 ML 100 ML IV SCH (13:25)
[2021-03-22] MEDS: LINEZOLID 600 MG/D5W 300ML 300 ML IV SCH ×2 (02:20→13:20)
[2021-03-22 05:39] VITALS: BP 145/72
[2021-03-22] MEDS: CEFEPIME 1 GM in SODIUM CHLORIDE 0.9% 50ML 50 ML IV SCH ×4 (06:07→21:15)
[2021-03-22] MEDS: NYSTATIN SUSPENSION 5 ML UDC PO SCH ×2 (06:07→11:07)
[2021-03-22] MEDS: ONDANSETRON HCL INJ 2MG/ML 2ML 2 MG/ML VIAL IV PRN ×3 (06:27→21:00)
[2021-03-22] MEDS: HYDROMORPHONE 1MG/1ML INJ IV PRN ×7 (06:27→21:00)
[2021-03-22 07:51] VITALS: BP 141/77
[2021-03-22 08:36] VITALS: BP 157/85
[2021-03-22] MEDS: MUPIROCIN 2% OINT 22 GM TUBE TOP SCH (09:16)
[2021-03-22] MEDS: PANTOPRAZOLE SOD 40 MG TABEC PO SCH (09:16)
[2021-03-22] MEDS: GLIMEPIRIDE 2 MG TAB PO SCH ×2 (09:16→17:45)
[2021-03-22] MEDS: LOPERAMIDE HCL 2 MG CAP PO PRN (11:07)
[2021-03-22 11:40] VITALS: BP 154/81
[2021-03-22] MEDS: FLUCONAZOLE 200 MG/100 ML 100 ML IV SCH (12:00)
[2021-03-22 16:46] VITALS: BP 142/79
[2021-03-22 20:00] VITALS: BP 157/93
[2021-03-23] VITALS (8 sets, daily range): BP systolic 139–156; BP diastolic 74–90
[2021-03-23] MEDS: HYDROMORPHONE 1MG/1ML INJ IV PRN ×8 (00:17→22:15)
[2021-03-23] MEDS: LINEZOLID 600 MG/D5W 300ML 300 ML IV SCH ×2 (02:13→13:30)
[2021-03-23] MEDS: ONDANSETRON HCL INJ 2MG/ML 2ML 2 MG/ML VIAL IV PRN ×4 (03:11→22:15)
[2021-03-23] MEDS: LOPERAMIDE HCL 2 MG CAP PO PRN ×3 (03:11→23:01)
[2021-03-23] MEDS: CEFEPIME 1 GM in SODIUM CHLORIDE 0.9% 50ML 50 ML IV SCH ×3 (06:09→22:00)
[2021-03-23 06:20] LABS: BASOPHILS % 0.4 % (0.0-1.0); EOSINOPHILS % 0.4 % (0.0-6.0); HEMATOCRIT 37.6 % (34.2-44.1); HEMOGLOBIN 12.1 g/dL (12.0-16.0); LYMPHOCYTES % 29.6 % (18.0-39.1); MEAN CORPUSCULAR HEMOGLOBIN 33.1 pg (28-32); MEAN CORPUSCULAR HGB CONC 32.2 g/dL (31-35); MEAN CORPUSCULAR VOLUME 102.7 fL (81-99); MONOCYTES # (AUTO) 0.7 (0.2-0.8); MONOCYTES % 7.2 % (4.4-11.3); NEUTROPHILS # (AUTO) 6.4 (2.1-6.9); NEUTROPHILS % 61.8 % (38.7-80.0); PLATELET COUNT 350 x10e3/uL (140-360); RED BLOOD COUNT 3.66 x10e6/uL (3.6-5.1)
[2021-03-23 06:45] LABS: ALBUMIN/GLOBULIN RATIO 0.9 (0.8-2.0); ANION GAP 12.9 mmol/L (8-16); CALCIUM 8.4 mg/dL (8.4-10.2); CREATININE, SERUM 0.72 mg/dL (0.57-1.11); MAGNESIUM 2.1 MG/DL (1.3-2.1); POTASSIUM 3.9 mmol/L (3.5-5.1)
[2021-03-23] MEDS: GLIMEPIRIDE 2 MG TAB PO SCH ×2 (09:50→17:38)
[2021-03-23] MEDS: MUPIROCIN 2% OINT 22 GM TUBE TOP SCH (09:50)
[2021-03-23] MEDS: PANTOPRAZOLE SOD 40 MG TABEC PO SCH (09:50)
[2021-03-23] MEDS: FLUCONAZOLE 200 MG/100 ML 100 ML IV SCH (13:30)
[2021-03-24] VITALS (8 sets, daily range): BP systolic 136–167; BP diastolic 79–95
[2021-03-24] MEDS: HYDROMORPHONE 1MG/1ML INJ IV PRN ×6 (01:15→21:30)
[2021-03-24] MEDS: LINEZOLID 600 MG/D5W 300ML 300 ML IV SCH ×2 (01:30→15:27)
[2021-03-24] MEDS: ONDANSETRON HCL INJ 2MG/ML 2ML 2 MG/ML VIAL IV PRN ×3 (04:15→18:36)
[2021-03-24] MEDS: CEFEPIME 1 GM in SODIUM CHLORIDE 0.9% 50ML 50 ML IV SCH ×3 (05:36→21:30)
[2021-03-24] MEDS: GLIMEPIRIDE 2 MG TAB PO SCH ×3 (07:26→12:03)
[2021-03-24] MEDS: PANTOPRAZOLE SOD 40 MG TABEC PO SCH ×2 (07:27→12:04)
[2021-03-24] MEDS: MUPIROCIN 2% OINT 22 GM TUBE TOP SCH (07:27)
[2021-03-24] MEDS ORDERED: LIDOCAINE 1% W/EPINEPHRINE 20 ML VIAL ONE (08:18)
[2021-03-24] MEDS ORDERED: MUPIROCIN 2% OINT 22 GM TUBE ONE (08:24)
[2021-03-24] MEDS ORDERED: MINERAL OIL 30 ML CUP PO ONE (08:47)
[2021-03-24] MEDS: HYDROMORPHONE 1MG/1ML INJ ONE ×2 (09:42→09:45)
[2021-03-24] MEDS: FENTANYL CITRATE/PF 100MCG/2 ML INJ ONE ×2 (09:51→09:56)
[2021-03-24] MEDS ORDERED: METOCLOPRAMIDE HCL 10 MG/2ML VIAL ONE (12:12)
[2021-03-24] MEDS ORDERED: POVIDONE IODINE 0.05% 0.05 % ML PO ONE (12:12)
[2021-03-24] MEDS ORDERED: PROPOFOL IV EMULSION 10 MG/ML 20 ML VIAL ONE (12:12)
[2021-03-24] MEDS ORDERED: DEXAMETHASONE SOD PHOS INJ 4 MG/ML SDV ONE (12:12)
[2021-03-24] MEDS ORDERED: ONDANSETRON HCL INJ 2MG/ML 2ML 2 MG/ML VIAL ONE (12:12)
[2021-03-24] MEDS ORDERED: LIDOCAINE HCL 2% LOCAL INJ 5 ML SDV VIAL INJ ONE (12:12)
[2021-03-24] MEDS ORDERED: SEVOFLURANE INHAL SOLN 250 ML PEN BTL ONE (12:12)
[2021-03-24] MEDS ORDERED: MIDAZOLAM HCL 2 MG/2 ML VIAL ONE (12:47)
[2021-03-24] MEDS ORDERED: FENTANYL CITRATE/PF 100MCG/2 ML INJ ONE (12:47)
[2021-03-24] MEDS: FLUCONAZOLE 200 MG/100 ML 100 ML IV SCH (13:59)
[2021-03-24] MEDS: HYDROCODONE/APAP 10MG-325MG TAB PO PRN (17:16)
[2021-03-24] MEDS: LOPERAMIDE HCL 2 MG CAP PO PRN (21:30)
[2021-03-25] VITALS (8 sets, daily range): BP systolic 125–157; BP diastolic 76–90
[2021-03-25] MEDS: ONDANSETRON HCL INJ 2MG/ML 2ML 2 MG/ML VIAL IV PRN ×2 (00:30→09:48)
[2021-03-25] MEDS: HYDROMORPHONE 1MG/1ML INJ IV PRN ×8 (00:30→22:00)
[2021-03-25] MEDS: LINEZOLID 600 MG/D5W 300ML 300 ML IV SCH (01:30)
[2021-03-25] MEDS: CEFEPIME 1 GM in SODIUM CHLORIDE 0.9% 50ML 50 ML IV SCH ×3 (06:20→22:17)
[2021-03-25 06:24] LABS: BASOPHILS % 0.2 % (0.0-1.0); HEMATOCRIT 33.2 % (34.2-44.1); HEMOGLOBIN 11.1 g/dL (12.0-16.0); LYMPHOCYTES # (AUTO) 1.8 (1.0-3.2); LYMPHOCYTES % 15.9 % (18.0-39.1); MEAN CORPUSCULAR HEMOGLOBIN 33.1 pg (28-32); MEAN CORPUSCULAR HGB CONC 33.4 g/dL (31-35); MEAN CORPUSCULAR VOLUME 99.1 fL (81-99); MONOCYTES # (AUTO) 0.8 (0.2-0.8); NEUTROPHILS # (AUTO) 8.6 (2.1-6.9); NEUTROPHILS % 75.8 % (38.7-80.0); PLATELET COUNT 361 x10e3/uL (140-360); RED BLOOD COUNT 3.35 x10e6/uL (3.6-5.1); RED CELL DISTRIBUTION WIDTH 13.6 % (11.7-14.4)
[2021-03-25 06:54] LABS: ALBUMIN/GLOBULIN RATIO 0.9 (0.8-2.0); ANION GAP 12.7 mmol/L (8-16); CALCIUM 8.6 mg/dL (8.4-10.2); CREATININE, SERUM 0.75 mg/dL (0.57-1.11); POTASSIUM 3.7 mmol/L (3.5-5.1)
[2021-03-25] MEDS: PANTOPRAZOLE SOD 40 MG TABEC PO SCH (09:50)
[2021-03-25] MEDS: GLIMEPIRIDE 2 MG TAB PO SCH ×2 (09:50→16:04)
[2021-03-25] MEDS: MUPIROCIN 2% OINT 22 GM TUBE TOP SCH (09:50)
[2021-03-25] MEDS ORDERED: LINEZOLID 600 MG/D5W 300ML 300 ML IV SCH (13:00)
[2021-03-25] MEDS ORDERED: LINEZOLID 600 MG TAB PO SCH ×2 (13:00)
[2021-03-25] MEDS: LINEZOLID 600 MG TAB PO SCH (13:47)
[2021-03-25] MEDS: FLUCONAZOLE 100 MG TAB PO SCH (13:47)
[2021-03-25] MEDS: LOPERAMIDE HCL 2 MG CAP PO PRN (13:52)
[2021-03-25] MEDS: PROMETHAZINE HCL 25 MG TAB PO PRN (13:52)
[2021-03-25] MEDS: HYDROCODONE/APAP 10MG-325MG TAB PO PRN (13:58)
[2021-03-26] VITALS (8 sets, daily range): BP systolic 137–157; BP diastolic 58–91
[2021-03-26] MEDS: LINEZOLID 600 MG TAB PO SCH ×2 (01:10→13:09)
[2021-03-26] MEDS: HYDROMORPHONE 1MG/1ML INJ IV PRN ×8 (01:11→22:00)
[2021-03-26] MEDS: LOPERAMIDE HCL 2 MG CAP PO PRN ×2 (01:37→11:36)
[2021-03-26] MEDS: CEFEPIME 1 GM in SODIUM CHLORIDE 0.9% 50ML 50 ML IV SCH ×3 (06:19→22:12)
[2021-03-26] MEDS: GLIMEPIRIDE 2 MG TAB PO SCH ×2 (08:02→16:11)
[2021-03-26] MEDS: MUPIROCIN 2% OINT 22 GM TUBE TOP SCH (08:02)
[2021-03-26] MEDS: PANTOPRAZOLE SOD 40 MG TABEC PO SCH (08:02)
[2021-03-26] MEDS: HYDROCODONE/APAP 10MG-325MG TAB PO PRN (08:02)
[2021-03-26] MEDS: ONDANSETRON HCL INJ 2MG/ML 2ML 2 MG/ML VIAL IV PRN ×2 (10:00→22:13)
[2021-03-26] MEDS: FLUCONAZOLE 100 MG TAB PO SCH (13:09)
[2021-03-26] MEDS: PROMETHAZINE HCL 25 MG TAB PO PRN (13:15)
[2021-03-27] VITALS: BP 129/75
[2021-03-27] MEDS: LOPERAMIDE HCL 2 MG CAP PO PRN ×2 (00:24→10:47)
[2021-03-27] MEDS: LINEZOLID 600 MG TAB PO SCH (00:52)
[2021-03-27] MEDS: HYDROMORPHONE 1MG/1ML INJ IV PRN ×4 (00:53→10:42)
[2021-03-27 04:00] VITALS: BP 151/87
[2021-03-27] MEDS: ONDANSETRON HCL INJ 2MG/ML 2ML 2 MG/ML VIAL IV PRN ×2 (04:41→10:47)
[2021-03-27] MEDS: CEFEPIME 1 GM in SODIUM CHLORIDE 0.9% 50ML 50 ML IV SCH (05:35)
[2021-03-27 08:57] VITALS: BP 155/86
[2021-03-27 09:16] VITALS: BP 155/86
[2021-03-27] MEDS: GLIMEPIRIDE 2 MG TAB PO SCH (09:17)
[2021-03-27] MEDS: PANTOPRAZOLE SOD 40 MG TABEC PO SCH (09:18)
[2021-04-07] MEDS ORDERED: LINEZOLID 600 MG/D5W 300ML 300 ML IV SCH (08:00)
[2021-04-07] MEDS ORDERED: Cefazolin 1 GM in SODIUM CHLORIDE 0.9% 50ML 50 ML IV SCH (14:00)
== END 2021-03-27 12:32 | disposition home or self-care (01) | DRG 854 ==
LOC: ER 20:50 → ERHOLD 22:43 → MED/SURG2 23:15
PROVIDERS: ADMIT Internal Medicine; ATTEND Internal Medicine
PROC: 02HV33Z Insertion of Infusion Device into Superior Vena Cava, Percutaneous Approach (ICD-10-PCS; 2021-03-15)
PROC: 02HV33Z Insertion of Infusion Device into Superior Vena Cava, Percutaneous Approach (ICD-10-PCS; 2021-03-22)
PROC: 0JBP0ZZ Excision of Left Lower Leg Subcutaneous Tissue and Fascia, Open Approach (ICD-10-PCS; 2021-03-24)
PROC: 0HRLX74 Replacement of Left Lower Leg Skin with Autologous Tissue Substitute, Partial Thickness, External Approach (ICD-10-PCS; principal; 2021-03-24 08:00)
DX: A41.9 Sepsis, unspecified organism (principal); L03.116 Cellulitis of left lower limb; I96 Gangrene, not elsewhere classified; M32.9 Systemic lupus erythematosus, unspecified; Z90.49 Acquired absence of other specified parts of digestive tract; I10 Essential (primary) hypertension; E11.9 Type 2 diabetes mellitus without complications; Z86.73 Personal history of transient ischemic attack (TIA), and cerebral infarction without residual deficits; Z87.442 Personal history of urinary calculi; Z88.8 Allergy status to other drugs, medicaments and biological substances; Z88.1 Allergy status to other antibiotic agents; Z91.041 Radiographic dye allergy status; Z91.013 Allergy to seafood; Z82.49 Family history of ischemic heart disease and other diseases of the circulatory system; K21.9 Gastro-esophageal reflux disease without esophagitis; I87.2 Venous insufficiency (chronic) (peripheral); F41.9 Anxiety disorder, unspecified; Z79.899 Other long term (current) drug therapy; S81.812A Laceration without foreign body, left lower leg, initial encounter; W19.XXXA Unspecified fall, initial encounter; Z98.890 Other specified postprocedural states; Z20.822 Contact with and (suspected) exposure to COVID-19
CPT/HCPCS: 36415; 36568; 36569; 71045; 80053; 82948; 83605; 83735; 85025; 87040; 94799; 97605; 99251; 99284; J0690; J0692; J1100; J1170; J1450; J2001; J2020; J2250; J2270; J2405; J2765; J3010; J7050; U0002

== ENCOUNTER → 2021-03-30 | Outpatient (CLI) | payer OTHER | LOC: WCC 08:44 | PROVIDERS: ATTEND Plastic Surgery | DX: T86.821 Skin graft (allograft) (autograft) failure (principal); Y83.8 Other surgical procedures as the cause of abnormal reaction of the patient, or of later complication, without mention of misadventure at the time of the procedure; E11.65 Type 2 diabetes mellitus with hyperglycemia; S81.802A Unspecified open wound, left lower leg, initial encounter; I89.0 Lymphedema, not elsewhere classified; R60.0 Localized edema; G89.29 Other chronic pain; M32.10 Systemic lupus erythematosus, organ or system involvement unspecified; I10 Essential (primary) hypertension; A69.20 Lyme disease, unspecified; W17.89XA Other fall from one level to another, initial encounter ==

== ENCOUNTER 2021-04-07 06:08 | Inpatient (IN) | payer OTHER ==
[~2021-04-07] VITALS: Ht 162.6 cm; Wt 67.1 kg
[2021-04-07] MEDS ORDERED: PIPERACILLIN/TAZOBACTAM 3.375 GM in SODIUM CHLORIDE 0.9% 50ML 50 ML IV STA (06:28)
[2021-04-07] MEDS ORDERED: SODIUM CHLORIDE 0.9% 1000ML 1,000 ML IV SCH (06:30)
[2021-04-07 06:35] LABS: BASOPHILS # (AUTO) 0.1 (0.0-0.1); BASOPHILS % 0.2 % (0.0-1.0); EOSINOPHILS % 0.1 % (0.0-6.0); HEMATOCRIT 37.4 % (34.2-44.1); LYMPHOCYTES # (AUTO) 3.7 (1.0-3.2); LYMPHOCYTES % 14.5 % (18.0-39.1); MEAN CORPUSCULAR HGB CONC 32.1 g/dL (31-35); MEAN CORPUSCULAR VOLUME 102.7 fL (81-99); MONOCYTES # (AUTO) 1.7 (0.2-0.8); MONOCYTES % 6.6 % (4.4-11.3); NEUTROPHILS # (AUTO) 19.7 (2.1-6.9); NEUTROPHILS % 77.6 % (38.7-80.0); PLATELET COUNT 411 x10e3/uL (140-360); RED BLOOD COUNT 3.64 x10e6/uL (3.6-5.1); RED CELL DISTRIBUTION WIDTH 14.5 % (11.7-14.4)
[2021-04-07] MEDS ORDERED: SODIUM CHLORIDE 0.9% 1000ML 1,000 ML IV ONE (06:45)
[2021-04-07] MEDS ORDERED: ACETAMINOPHEN 325 MG TAB PO ONE (06:45)
[2021-04-07 07:21] LABS: ALBUMIN 2.8 g/dL (3.5-5.0); ALBUMIN/GLOBULIN RATIO 0.7 (0.8-2.0); ANION GAP 15.7 mmol/L (8-16); CALCIUM 8.7 mg/dL (8.4-10.2); CREATININE, SERUM 0.8 mg/dL (0.57-1.11); POTASSIUM 3.7 mmol/L (3.5-5.1)
[2021-04-07] MEDS ORDERED: KETOROLAC TROMETHAMINE 30 MG/ML VIAL IV STA (07:23)
[2021-04-07] MEDS: LINEZOLID 600 MG/D5W 300ML 300 ML IV SCH ×2 (09:12→21:59)
[2021-04-07] MEDS: SODIUM CHLORIDE 0.9% 1000ML 1,000 ML IV SCH ×3 (09:12→21:59)
[2021-04-07] MEDS: ONDANSETRON HCL INJ 2MG/ML 2ML 2 MG/ML VIAL IV PRN ×2 (09:12→22:00)
[2021-04-07] MEDS: Cefazolin 1 GM in SODIUM CHLORIDE 0.9% 50ML 50 ML IV SCH ×3 (14:00→22:00)
[2021-04-07] MEDS: HYDROMORPHONE 1MG/1ML INJ IV PRN ×3 (14:50→22:00)
[2021-04-07 15:50] VITALS: BP 115/64
[2021-04-07 16:04] VITALS: BP 115/64
[2021-04-07 16:09] VITALS: BP 115/64
[2021-04-07 20:19] VITALS: BP 131/70
[2021-04-07 20:21] VITALS: BP 131/70
[2021-04-07 23:08] VITALS: BP 107/55
[2021-04-08] VITALS (7 sets, daily range): BP systolic 93–127; BP diastolic 58–96
[2021-04-08] MEDS ORDERED: LISINOPRIL 2.5 MG TAB PO PRN (03:45)
[2021-04-08] MEDS ORDERED: SERTRALINE HCL 50 MG TAB PO PRN (03:45)
[2021-04-08] MEDS ORDERED: CYCLOBENZAPRINE HCL 10 MG TAB PO PRN (03:45)
[2021-04-08] MEDS: HYDROMORPHONE 1MG/1ML INJ IV PRN ×4 (04:30→20:45)
[2021-04-08] MEDS: ONDANSETRON HCL INJ 2MG/ML 2ML 2 MG/ML VIAL IV PRN ×2 (04:30→11:30)
[2021-04-08 05:07] LABS: BASOPHILS % 0.1 % (0.0-1.0); EOSINOPHILS # (AUTO) 0.1 (0.0-0.4); EOSINOPHILS % 0.4 % (0.0-6.0); HEMATOCRIT 29.6 % (34.2-44.1); HEMOGLOBIN 9.4 g/dL (12.0-16.0); LYMPHOCYTES # (AUTO) 1.8 (1.0-3.2); LYMPHOCYTES % 9.5 % (18.0-39.1); MEAN CORPUSCULAR HEMOGLOBIN 32.6 pg (28-32); MEAN CORPUSCULAR HGB CONC 31.8 g/dL (31-35); MEAN CORPUSCULAR VOLUME 102.8 fL (81-99); MONOCYTES % 5.4 % (4.4-11.3); NEUTROPHILS # (AUTO) 15.9 (2.1-6.9); NEUTROPHILS % 83.7 % (38.7-80.0); PLATELET COUNT 353 x10e3/uL (140-360); RED BLOOD COUNT 2.88 x10e6/uL (3.6-5.1); RED CELL DISTRIBUTION WIDTH 14.5 % (11.7-14.4)
[2021-04-08] MEDS: Cefazolin 1 GM in SODIUM CHLORIDE 0.9% 50ML 50 ML IV SCH ×3 (05:07→22:13)
[2021-04-08 05:35] LABS: ANION GAP 12.9 mmol/L (8-16); CREATININE, SERUM 0.7 mg/dL (0.57-1.11); POTASSIUM 3.9 mmol/L (3.5-5.1)
[2021-04-08] MEDS ORDERED: GLIMEPIRIDE 2 MG TAB PO SCH (08:00)
[2021-04-08] MEDS: GLIMEPIRIDE 2 MG TAB PO SCH ×2 (08:00→16:23)
[2021-04-08] MEDS: SODIUM CHLORIDE 0.9% 1000ML 1,000 ML IV SCH ×2 (08:15→15:46)
[2021-04-08] MEDS: LINEZOLID 600 MG/D5W 300ML 300 ML IV SCH ×2 (08:45→20:45)
[2021-04-08] MEDS: BACITRACIN ZINC 15 GM OINT TOP SCH (09:00)
[2021-04-08] MEDS: FUROSEMIDE 40 MG TAB PO SCH (09:00)
[2021-04-08] MEDS: ATENOLOL 50 MG TAB PO SCH ×2 (09:00→16:23)
[2021-04-08] MEDS: LOPERAMIDE HCL 2 MG CAP PO PRN (15:57)
[2021-04-09] VITALS (7 sets, daily range): BP systolic 108–123; BP diastolic 70–76
[2021-04-09] MEDS: HYDROMORPHONE 1MG/1ML INJ IV PRN ×8 (00:15→21:55)
[2021-04-09] MEDS: ONDANSETRON HCL INJ 2MG/ML 2ML 2 MG/ML VIAL IV PRN ×3 (03:20→18:55)
[2021-04-09 05:39] LABS: BASOPHILS % 0.2 % (0.0-1.0); EOSINOPHILS # (AUTO) 0.2 (0.0-0.4); EOSINOPHILS % 1.2 % (0.0-6.0); HEMOGLOBIN 8.9 g/dL (12.0-16.0); LYMPHOCYTES # (AUTO) 2.2 (1.0-3.2); LYMPHOCYTES % 16.1 % (18.0-39.1); MEAN CORPUSCULAR HEMOGLOBIN 32.5 pg (28-32); MEAN CORPUSCULAR HGB CONC 31.8 g/dL (31-35); MEAN CORPUSCULAR VOLUME 102.2 fL (81-99); MONOCYTES # (AUTO) 1.4 (0.2-0.8); MONOCYTES % 10.1 % (4.4-11.3); NEUTROPHILS # (AUTO) 9.8 (2.1-6.9); NEUTROPHILS % 71.9 % (38.7-80.0); PLATELET COUNT 350 x10e3/uL (140-360); RED BLOOD COUNT 2.74 x10e6/uL (3.6-5.1); RED CELL DISTRIBUTION WIDTH 14.3 % (11.7-14.4)
[2021-04-09] MEDS: NYSTATIN SUSPENSION 5 ML UDC PO SCH ×4 (05:53→23:07)
[2021-04-09] MEDS: FLUCONAZOLE 200 MG/100 ML 100 ML IV SCH (05:53)
[2021-04-09 06:10] LABS: ALBUMIN 2.3 g/dL (3.5-5.0); ALBUMIN/GLOBULIN RATIO 0.7 (0.8-2.0); ANION GAP 12.5 mmol/L (8-16); POTASSIUM 3.5 mmol/L (3.5-5.1)
[2021-04-09 06:30] LABS: CALCIUM 8.3 mg/dL (8.4-10.2); CREATININE, SERUM 0.67 mg/dL (0.57-1.11)
[2021-04-09] MEDS: Cefazolin 1 GM in SODIUM CHLORIDE 0.9% 50ML 50 ML IV SCH ×3 (06:38→22:30)
[2021-04-09] MEDS: LOPERAMIDE HCL 2 MG CAP PO PRN (08:00)
[2021-04-09] MEDS: GLIMEPIRIDE 2 MG TAB PO SCH ×2 (08:00→16:39)
[2021-04-09] MEDS: LINEZOLID 600 MG/D5W 300ML 300 ML IV SCH ×2 (08:37→21:01)
[2021-04-09] MEDS: FUROSEMIDE 40 MG TAB PO SCH (09:00)
[2021-04-09] MEDS: ATENOLOL 50 MG TAB PO SCH ×2 (09:00→16:39)
[2021-04-09] MEDS: BACITRACIN ZINC 15 GM OINT TOP SCH (09:00)
[2021-04-09] MEDS: ALPRAZOLAM 0.25 MG TAB PO PRN (17:38)
[2021-04-10] MEDS: HYDROMORPHONE 1MG/1ML INJ IV PRN ×8 (00:55→22:30)
[2021-04-10 01:16] VITALS: BP 120/72
[2021-04-10] MEDS: LOPERAMIDE HCL 2 MG CAP PO PRN (04:06)
[2021-04-10] MEDS: FLUCONAZOLE 200 MG/100 ML 100 ML IV SCH (04:27)
[2021-04-10 04:47] VITALS: BP 124/72
[2021-04-10] MEDS: Cefazolin 1 GM in SODIUM CHLORIDE 0.9% 50ML 50 ML IV SCH ×3 (06:06→22:00)
[2021-04-10] MEDS: NYSTATIN SUSPENSION 5 ML UDC PO SCH ×3 (06:06→19:08)
[2021-04-10 08:00] VITALS: BP 124/72
[2021-04-10] MEDS: GLIMEPIRIDE 2 MG TAB PO SCH ×2 (08:00→16:39)
[2021-04-10] MEDS: LINEZOLID 600 MG/D5W 300ML 300 ML IV SCH ×2 (08:45→20:45)
[2021-04-10] MEDS: ATENOLOL 50 MG TAB PO SCH ×2 (09:00→16:39)
[2021-04-10] MEDS: BACITRACIN ZINC 15 GM OINT TOP SCH (09:00)
[2021-04-10] MEDS: FUROSEMIDE 40 MG TAB PO SCH (09:00)
[2021-04-10] MEDS: ONDANSETRON HCL INJ 2MG/ML 2ML 2 MG/ML VIAL IV PRN ×2 (09:00→16:29)
[2021-04-10 20:00] VITALS: BP 129/74
[2021-04-10 20:50] VITALS: BP 129/74
[2021-04-11] VITALS (7 sets, daily range): BP systolic 101–128; BP diastolic 63–80
[2021-04-11] MEDS: HYDROMORPHONE 1MG/1ML INJ IV PRN ×8 (01:35→22:07)
[2021-04-11] MEDS: ONDANSETRON HCL INJ 2MG/ML 2ML 2 MG/ML VIAL IV PRN ×3 (02:31→22:07)
[2021-04-11] MEDS: FLUCONAZOLE 200 MG/100 ML 100 ML IV SCH (04:30)
[2021-04-11] MEDS: Cefazolin 1 GM in SODIUM CHLORIDE 0.9% 50ML 50 ML IV SCH ×3 (06:22→23:14)
[2021-04-11] MEDS: NYSTATIN SUSPENSION 5 ML UDC PO SCH ×4 (06:22→18:03)
[2021-04-11 06:48] LABS: BASOPHILS % 0.3 % (0.0-1.0); EOSINOPHILS # (AUTO) 0.1 (0.0-0.4); EOSINOPHILS % 0.7 % (0.0-6.0); HEMATOCRIT 28.3 % (34.2-44.1); HEMOGLOBIN 8.7 g/dL (12.0-16.0); LYMPHOCYTES # (AUTO) 2.7 (1.0-3.2); LYMPHOCYTES % 20.1 % (18.0-39.1); MEAN CORPUSCULAR HEMOGLOBIN 31.9 pg (28-32); MEAN CORPUSCULAR HGB CONC 30.7 g/dL (31-35); MEAN CORPUSCULAR VOLUME 103.7 fL (81-99); MONOCYTES # (AUTO) 1.1 (0.2-0.8); NEUTROPHILS # (AUTO) 9.5 (2.1-6.9); NEUTROPHILS % 70.1 % (38.7-80.0); PLATELET COUNT 408 x10e3/uL (140-360); RED BLOOD COUNT 2.73 x10e6/uL (3.6-5.1); RED CELL DISTRIBUTION WIDTH 14.5 % (11.7-14.4)
[2021-04-11 07:09] LABS: ANION GAP 14.7 mmol/L (8-16); CALCIUM 8.5 mg/dL (8.4-10.2); CREATININE, SERUM 0.76 mg/dL (0.57-1.11); POTASSIUM 3.7 mmol/L (3.5-5.1)
[2021-04-11] MEDS: GLIMEPIRIDE 2 MG TAB PO SCH ×2 (08:00→18:02)
[2021-04-11] MEDS: LINEZOLID 600 MG/D5W 300ML 300 ML IV SCH ×2 (08:45→21:31)
[2021-04-11] MEDS: FUROSEMIDE 40 MG TAB PO SCH (09:00)
[2021-04-11] MEDS: ATENOLOL 50 MG TAB PO SCH ×2 (09:00→17:00)
[2021-04-11] MEDS: BACITRACIN ZINC 15 GM OINT TOP SCH (09:00)
[2021-04-11] MEDS ORDERED: HYDROCODONE/APAP 10MG-325MG TAB ONE (10:51)
[2021-04-11] MEDS: HYDROCODONE/APAP 10MG-325MG TAB PO PRN (11:30)
[2021-04-12] VITALS (8 sets, daily range): BP systolic 102–132; BP diastolic 60–90
[2021-04-12] MEDS: NYSTATIN SUSPENSION 5 ML UDC PO SCH ×4 (00:26→16:44)
[2021-04-12] MEDS: HYDROMORPHONE 1MG/1ML INJ IV PRN ×8 (01:11→22:42)
[2021-04-12] MEDS: HYDROCODONE/APAP 10MG-325MG TAB PO PRN ×2 (02:22→12:00)
[2021-04-12] MEDS: FLUCONAZOLE 200 MG/100 ML 100 ML IV SCH (04:15)
[2021-04-12] MEDS: ONDANSETRON HCL INJ 2MG/ML 2ML 2 MG/ML VIAL IV PRN ×2 (04:15→07:22)
[2021-04-12] MEDS: Cefazolin 1 GM in SODIUM CHLORIDE 0.9% 50ML 50 ML IV SCH ×3 (05:28→22:53)
[2021-04-12] MEDS: GLIMEPIRIDE 2 MG TAB PO SCH ×2 (08:00→16:42)
[2021-04-12] MEDS: LINEZOLID 600 MG/D5W 300ML 300 ML IV SCH ×2 (08:15→20:58)
[2021-04-12] MEDS: BACITRACIN ZINC 15 GM OINT TOP SCH (09:00)
[2021-04-12] MEDS: FUROSEMIDE 40 MG TAB PO SCH (09:00)
[2021-04-12] MEDS: ATENOLOL 50 MG TAB PO SCH ×2 (09:00→16:43)
[2021-04-12] MEDS: LOPERAMIDE HCL 2 MG CAP PO PRN (21:12)
[2021-04-12] MEDS: ALPRAZOLAM 0.25 MG TAB PO PRN (21:12)
[2021-04-13] VITALS (8 sets, daily range): BP systolic 113–150; BP diastolic 65–85
[2021-04-13] MEDS: NYSTATIN SUSPENSION 5 ML UDC PO SCH ×5 (00:18→23:55)
[2021-04-13] MEDS: HYDROMORPHONE 1MG/1ML INJ IV PRN ×8 (02:05→23:45)
[2021-04-13] MEDS: FLUCONAZOLE 200 MG/100 ML 100 ML IV SCH (03:36)
[2021-04-13] MEDS: Cefazolin 1 GM in SODIUM CHLORIDE 0.9% 50ML 50 ML IV SCH ×3 (05:23→22:00)
[2021-04-13 07:34] LABS: BASOPHILS % 0.4 % (0.0-1.0); EOSINOPHILS # (AUTO) 0.2 (0.0-0.4); EOSINOPHILS % 1.9 % (0.0-6.0); HEMATOCRIT 27.8 % (34.2-44.1); HEMOGLOBIN 8.6 g/dL (12.0-16.0); LYMPHOCYTES # (AUTO) 2.5 (1.0-3.2); LYMPHOCYTES % 28.7 % (18.0-39.1); MEAN CORPUSCULAR HEMOGLOBIN 32.7 pg (28-32); MEAN CORPUSCULAR HGB CONC 30.9 g/dL (31-35); MEAN CORPUSCULAR VOLUME 105.7 fL (81-99); MONOCYTES # (AUTO) 0.7 (0.2-0.8); NEUTROPHILS # (AUTO) 5.2 (2.1-6.9); NEUTROPHILS % 60.1 % (38.7-80.0); PLATELET COUNT 405 x10e3/uL (140-360); RED BLOOD COUNT 2.63 x10e6/uL (3.6-5.1); RED CELL DISTRIBUTION WIDTH 14.4 % (11.7-14.4)
[2021-04-13] MEDS: GLIMEPIRIDE 2 MG TAB PO SCH ×2 (08:00→17:00)
[2021-04-13 08:07] LABS: ALBUMIN 2.4 g/dL (3.5-5.0); ALBUMIN/GLOBULIN RATIO 0.8 (0.8-2.0); ANION GAP 14.4 mmol/L (8-16); CALCIUM 8.2 mg/dL (8.4-10.2); CREATININE, SERUM 0.7 mg/dL (0.57-1.11); MAGNESIUM 1.9 MG/DL (1.3-2.1); POTASSIUM 3.4 mmol/L (3.5-5.1)
[2021-04-13] MEDS: LINEZOLID 600 MG/D5W 300ML 300 ML IV SCH ×2 (08:45→20:43)
[2021-04-13] MEDS: ATENOLOL 50 MG TAB PO SCH ×2 (09:00→17:00)
[2021-04-13] MEDS: BACITRACIN ZINC 15 GM OINT TOP SCH (09:00)
[2021-04-13] MEDS: FUROSEMIDE 40 MG TAB PO SCH (09:00)
[2021-04-13 10:43] LABS: LYMPHOCYTES % (MANUAL) 28 % (19-48); MONOCYTES % (MANUAL) 4 % (3.4-9.0); NEUTROPHILS % (MANUAL) 68 % (40-74); PLATELET ESTIMATE ADEQUATE; PLATELET MORPHOLOGY COMMENT NORMAL; RBC MORPHOLOGY COMMENT NORMAL
[2021-04-13] MEDS: LOPERAMIDE HCL 2 MG CAP PO PRN (11:40)
[2021-04-13] MEDS: ONDANSETRON HCL INJ 2MG/ML 2ML 2 MG/ML VIAL IV PRN ×2 (11:40→17:40)
[2021-04-14] VITALS (7 sets, daily range): BP systolic 106–141; BP diastolic 60–80
[2021-04-14] MEDS: HYDROCODONE/APAP 10MG-325MG TAB PO PRN ×2 (04:10→22:00)
[2021-04-14] MEDS: FLUCONAZOLE 200 MG/100 ML 100 ML IV SCH (05:03)
[2021-04-14] MEDS: NYSTATIN SUSPENSION 5 ML UDC PO SCH ×4 (06:00→23:28)
[2021-04-14] MEDS: Cefazolin 1 GM in SODIUM CHLORIDE 0.9% 50ML 50 ML IV SCH ×3 (06:00→22:00)
[2021-04-14] MEDS: HYDROMORPHONE 1MG/1ML INJ IV PRN ×5 (09:01→23:55)
[2021-04-14] MEDS: ONDANSETRON HCL INJ 2MG/ML 2ML 2 MG/ML VIAL IV PRN ×2 (09:01→22:00)
[2021-04-14] MEDS: LINEZOLID 600 MG/D5W 300ML 300 ML IV SCH ×2 (09:05→20:51)
[2021-04-14] MEDS: FUROSEMIDE 40 MG TAB PO SCH (09:05)
[2021-04-14] MEDS: GLIMEPIRIDE 2 MG TAB PO SCH ×2 (09:05→16:45)
[2021-04-14] MEDS: BACITRACIN ZINC 15 GM OINT TOP SCH (09:07)
[2021-04-14] MEDS: ATENOLOL 50 MG TAB PO SCH ×2 (09:07→17:00)
[2021-04-14] MEDS ORDERED: SODIUM CHLORIDE 0.9% 50ML 50 ML ONE (21:43)
[2021-04-15] MEDS: HYDROMORPHONE 1MG/1ML INJ IV PRN ×6 (03:00→22:30)
[2021-04-15] MEDS: ONDANSETRON HCL INJ 2MG/ML 2ML 2 MG/ML VIAL IV PRN ×4 (03:00→22:30)
[2021-04-15] MEDS ORDERED: ALTEPLASE RECOMBINANT 2 MG/2 ML VIAL IV ONE (03:45)
[2021-04-15] MEDS: FLUCONAZOLE 200 MG/100 ML 100 ML IV SCH (04:30)
[2021-04-15] MEDS ORDERED: SODIUM CHLORIDE 0.9% 50ML 100 ML ONE (04:57)
[2021-04-15 05:04] LABS: BASOPHILS % 0.4 % (0.0-1.0); EOSINOPHILS # (AUTO) 0.2 (0.0-0.4); EOSINOPHILS % 2.1 % (0.0-6.0); HEMATOCRIT 29.8 % (34.2-44.1); HEMOGLOBIN 9.2 g/dL (12.0-16.0); LYMPHOCYTES # (AUTO) 3.1 (1.0-3.2); LYMPHOCYTES % 30.9 % (18.0-39.1); MEAN CORPUSCULAR HEMOGLOBIN 31.9 pg (28-32); MEAN CORPUSCULAR HGB CONC 30.9 g/dL (31-35); MEAN CORPUSCULAR VOLUME 103.5 fL (81-99); MONOCYTES # (AUTO) 0.7 (0.2-0.8); MONOCYTES % 7.2 % (4.4-11.3); NEUTROPHILS # (AUTO) 5.9 (2.1-6.9); NEUTROPHILS % 58.6 % (38.7-80.0); PLATELET COUNT 536 x10e3/uL (140-360); RED BLOOD COUNT 2.88 x10e6/uL (3.6-5.1); RED CELL DISTRIBUTION WIDTH 14.3 % (11.7-14.4)
[2021-04-15] MEDS: NYSTATIN SUSPENSION 5 ML UDC PO SCH ×3 (05:28→18:11)
[2021-04-15 05:39] LABS: ALBUMIN 2.6 g/dL (3.5-5.0); ALBUMIN/GLOBULIN RATIO 0.8 (0.8-2.0); ANION GAP 13.5 mmol/L (8-16); CALCIUM 8.5 mg/dL (8.4-10.2); CREATININE, SERUM 0.71 mg/dL (0.57-1.11); POTASSIUM 3.5 mmol/L (3.5-5.1)
[2021-04-15] MEDS: Cefazolin 1 GM in SODIUM CHLORIDE 0.9% 50ML 50 ML IV SCH ×3 (06:00→22:42)
[2021-04-15] MEDS: HYDROCODONE/APAP 10MG-325MG TAB PO PRN ×3 (07:35→23:55)
[2021-04-15 08:00] VITALS: BP 131/71
[2021-04-15] MEDS: GLIMEPIRIDE 2 MG TAB PO SCH ×2 (08:00→18:11)
[2021-04-15] MEDS: LINEZOLID 600 MG/D5W 300ML 300 ML IV SCH ×2 (08:45→20:44)
[2021-04-15] MEDS: FUROSEMIDE 40 MG TAB PO SCH (09:00)
[2021-04-15] MEDS: BACITRACIN ZINC 15 GM OINT TOP SCH (09:00)
[2021-04-15] MEDS: ATENOLOL 50 MG TAB PO SCH ×2 (09:00→18:11)
[2021-04-15 10:23] VITALS: BP 105/69
[2021-04-15 12:00] VITALS: BP 122/71
[2021-04-15] MEDS ORDERED: POVIDONE IODINE 0.05% 0.05 % ML PO ONE (13:06)
[2021-04-15] MEDS ORDERED: SEVOFLURANE INHAL SOLN 250 ML PEN BTL ONE (13:06)
[2021-04-15] MEDS ORDERED: LIDOCAINE HCL 2% LOCAL INJ 5 ML SDV VIAL INJ ONE (13:06)
[2021-04-15] MEDS ORDERED: ONDANSETRON HCL INJ 2MG/ML 2ML 2 MG/ML VIAL ONE (13:06)
[2021-04-15] MEDS ORDERED: PROPOFOL IV EMULSION 10 MG/ML 20 ML VIAL ONE (13:06)
[2021-04-15 16:00] VITALS: BP 141/76
[2021-04-15 20:00] VITALS: BP 131/81
[2021-04-15 21:00] VITALS: BP 131/81
[2021-04-16] VITALS (7 sets, daily range): BP systolic 116–131; BP diastolic 66–81
[2021-04-16] MEDS: NYSTATIN SUSPENSION 5 ML UDC PO SCH ×4 (00:08→15:59)
[2021-04-16] MEDS: HYDROMORPHONE 1MG/1ML INJ IV PRN ×8 (01:30→22:00)
[2021-04-16] MEDS: ONDANSETRON HCL INJ 2MG/ML 2ML 2 MG/ML VIAL IV PRN ×4 (04:00→22:00)
[2021-04-16] MEDS: FLUCONAZOLE 200 MG/100 ML 100 ML IV SCH (04:48)
[2021-04-16 05:02] LABS: BASOPHILS % 0.3 % (0.0-1.0); EOSINOPHILS # (AUTO) 0.2 (0.0-0.4); EOSINOPHILS % 2.3 % (0.0-6.0); HEMATOCRIT 31.1 % (34.2-44.1); HEMOGLOBIN 9.7 g/dL (12.0-16.0); LYMPHOCYTES # (AUTO) 2.7 (1.0-3.2); LYMPHOCYTES % 29.4 % (18.0-39.1); MEAN CORPUSCULAR HEMOGLOBIN 31.8 pg (28-32); MEAN CORPUSCULAR HGB CONC 31.2 g/dL (31-35); MONOCYTES # (AUTO) 0.6 (0.2-0.8); MONOCYTES % 6.7 % (4.4-11.3); NEUTROPHILS # (AUTO) 5.6 (2.1-6.9); NEUTROPHILS % 60.5 % (38.7-80.0); PLATELET COUNT 526 x10e3/uL (140-360); RED BLOOD COUNT 3.05 x10e6/uL (3.6-5.1); RED CELL DISTRIBUTION WIDTH 14.4 % (11.7-14.4)
[2021-04-16 05:24] LABS: ALBUMIN 2.7 g/dL (3.5-5.0); ALBUMIN/GLOBULIN RATIO 0.8 (0.8-2.0); ANION GAP 14.8 mmol/L (8-16); CALCIUM 8.5 mg/dL (8.4-10.2); CREATININE, SERUM 0.75 mg/dL (0.57-1.11); POTASSIUM 3.8 mmol/L (3.5-5.1)
[2021-04-16] MEDS: Cefazolin 1 GM in SODIUM CHLORIDE 0.9% 50ML 50 ML IV SCH ×3 (06:08→23:30)
[2021-04-16] MEDS: GLIMEPIRIDE 2 MG TAB PO SCH ×2 (08:00→15:59)
[2021-04-16] MEDS: FUROSEMIDE 40 MG TAB PO SCH (08:27)
[2021-04-16] MEDS: ATENOLOL 50 MG TAB PO SCH ×2 (08:27→16:00)
[2021-04-16] MEDS: BACITRACIN ZINC 15 GM OINT TOP SCH (09:55)
[2021-04-16] MEDS: LINEZOLID 600 MG/D5W 300ML 300 ML IV SCH ×2 (09:55→22:00)
[2021-04-16] MEDS ORDERED: BUPIVACAINE HCL 0.5% INJ 30 ML VIAL INJ ONE (12:55)
[2021-04-16] MEDS ORDERED: FENTANYL CITRATE/PF 100MCG/2 ML INJ ONE ×2 (13:09→13:23)
[2021-04-16] MEDS ORDERED: HYDROMORPHONE 1MG/1ML INJ ONE (13:18)
[2021-04-16] MEDS ORDERED: MIDAZOLAM HCL 2 MG/2 ML VIAL ONE (13:23)
[2021-04-16] MEDS ORDERED: Morphine 4mg Syringe 4 MG/ML INJ ONE (13:33)
[2021-04-17] VITALS (9 sets, daily range): BP systolic 111–156; BP diastolic 63–94
[2021-04-17] MEDS: HYDROMORPHONE 1MG/1ML INJ IV PRN ×8 (01:03→22:36)
[2021-04-17] MEDS: ONDANSETRON HCL INJ 2MG/ML 2ML 2 MG/ML VIAL IV PRN ×3 (04:00→19:27)
[2021-04-17] MEDS: FLUCONAZOLE 200 MG/100 ML 100 ML IV SCH (04:22)
[2021-04-17] MEDS: Cefazolin 1 GM in SODIUM CHLORIDE 0.9% 50ML 50 ML IV SCH ×3 (05:38→21:41)
[2021-04-17] MEDS: NYSTATIN SUSPENSION 5 ML UDC PO SCH ×5 (05:38→22:44)
[2021-04-17] MEDS: GLIMEPIRIDE 2 MG TAB PO SCH ×2 (08:00→17:00)
[2021-04-17] MEDS: ATENOLOL 50 MG TAB PO SCH ×2 (09:00→17:00)
[2021-04-17] MEDS: LINEZOLID 600 MG/D5W 300ML 300 ML IV SCH ×2 (09:00→21:07)
[2021-04-17] MEDS: FUROSEMIDE 40 MG TAB PO SCH (09:00)
[2021-04-17] MEDS: PANTOPRAZOLE SOD 40 MG TABEC PO SCH (09:30)
[2021-04-17] MEDS ORDERED: KETOROLAC TROMETHAMINE 30 MG/ML VIAL IV PRN (09:30)
[2021-04-17] MEDS: KETOROLAC TROMETHAMINE 30 MG/ML VIAL IV PRN (11:30)
[2021-04-17] MEDS: HYDROCODONE/APAP 10MG-325MG TAB PO PRN (17:05)
[2021-04-17] MEDS ORDERED: SODIUM CHLORIDE 0.9% 250ML 250 ML ONE (21:32)
[2021-04-18] MEDS: HYDROMORPHONE 1MG/1ML INJ IV PRN ×7 (02:00→23:46)
[2021-04-18] MEDS: ONDANSETRON HCL INJ 2MG/ML 2ML 2 MG/ML VIAL IV PRN ×4 (02:25→16:53)
[2021-04-18 04:00] VITALS: BP 134/80
[2021-04-18] MEDS: FLUCONAZOLE 200 MG/100 ML 100 ML IV SCH (04:20)
[2021-04-18] MEDS: Cefazolin 1 GM in SODIUM CHLORIDE 0.9% 50ML 50 ML IV SCH ×3 (05:26→20:37)
[2021-04-18] MEDS: NYSTATIN SUSPENSION 5 ML UDC PO SCH ×4 (05:27→23:45)
[2021-04-18] MEDS: LINEZOLID 600 MG/D5W 300ML 300 ML IV SCH (08:42)
[2021-04-18] MEDS: GLIMEPIRIDE 2 MG TAB PO SCH ×2 (08:42→16:48)
[2021-04-18] MEDS: PANTOPRAZOLE SOD 40 MG TABEC PO SCH (08:42)
[2021-04-18] MEDS: FUROSEMIDE 40 MG TAB PO SCH (08:42)
[2021-04-18] MEDS: ATENOLOL 50 MG TAB PO SCH ×2 (08:43→16:50)
[2021-04-18 09:22] VITALS: BP 144/79
[2021-04-18 20:00] VITALS: BP 124/75
[2021-04-18 20:36] VITALS: BP 124/75
[2021-04-19] VITALS (8 sets, daily range): BP systolic 114–146; BP diastolic 63–92
[2021-04-19] MEDS: KETOROLAC TROMETHAMINE 30 MG/ML VIAL IV PRN (00:26)
[2021-04-19] MEDS: HYDROMORPHONE 1MG/1ML INJ IV PRN ×7 (02:58→23:15)
[2021-04-19] MEDS: NYSTATIN SUSPENSION 5 ML UDC PO SCH ×3 (05:35→16:59)
[2021-04-19] MEDS: Cefazolin 1 GM in SODIUM CHLORIDE 0.9% 50ML 50 ML IV SCH ×3 (05:35→22:00)
[2021-04-19] MEDS: FLUCONAZOLE 200 MG/100 ML 100 ML IV SCH (05:35)
[2021-04-19] MEDS: PANTOPRAZOLE SOD 40 MG TABEC PO SCH (09:49)
[2021-04-19] MEDS: FUROSEMIDE 40 MG TAB PO SCH (09:50)
[2021-04-19] MEDS: GLIMEPIRIDE 2 MG TAB PO SCH ×2 (09:50→16:57)
[2021-04-19] MEDS: ATENOLOL 50 MG TAB PO SCH ×2 (09:51→16:59)
[2021-04-19] MEDS: ONDANSETRON HCL INJ 2MG/ML 2ML 2 MG/ML VIAL IV PRN ×3 (10:03→17:02)
[2021-04-20] VITALS (8 sets, daily range): BP systolic 104–133; BP diastolic 65–72
[2021-04-20] MEDS: HYDROMORPHONE 1MG/1ML INJ IV PRN ×7 (02:25→21:25)
[2021-04-20] MEDS: FLUCONAZOLE 200 MG/100 ML 100 ML IV SCH (04:30)
[2021-04-20] MEDS: NYSTATIN SUSPENSION 5 ML UDC PO SCH ×4 (06:00→17:51)
[2021-04-20] MEDS: Cefazolin 1 GM in SODIUM CHLORIDE 0.9% 50ML 50 ML IV SCH (06:00)
[2021-04-20] MEDS: ONDANSETRON HCL INJ 2MG/ML 2ML 2 MG/ML VIAL IV PRN ×2 (06:35→21:25)
[2021-04-20] MEDS: ATENOLOL 50 MG TAB PO SCH ×2 (09:12→16:56)
[2021-04-20] MEDS: FUROSEMIDE 40 MG TAB PO SCH (09:12)
[2021-04-20] MEDS: GLIMEPIRIDE 2 MG TAB PO SCH ×2 (09:12→16:55)
[2021-04-20] MEDS: PANTOPRAZOLE SOD 40 MG TABEC PO SCH (09:12)
[2021-04-20] MEDS: CEFEPIME 1 GM in SODIUM CHLORIDE 0.9% 50ML 50 ML IV SCH ×2 (14:25→22:00)
[2021-04-20] MEDS: HYDROCODONE/APAP 10MG-325MG TAB PO PRN (16:09)
[2021-04-21] VITALS (8 sets, daily range): BP systolic 108–133; BP diastolic 62–91
[2021-04-21] MEDS: NYSTATIN SUSPENSION 5 ML UDC PO SCH
[2021-04-21] MEDS: FLUCONAZOLE 200 MG/100 ML 100 ML IV SCH (04:30)
[2021-04-21] MEDS: CEFEPIME 1 GM in SODIUM CHLORIDE 0.9% 50ML 50 ML IV SCH ×3 (06:01→22:00)
[2021-04-21] MEDS: HYDROMORPHONE 1MG/1ML INJ IV PRN ×6 (06:02→22:00)
[2021-04-21] MEDS: ATENOLOL 50 MG TAB PO SCH ×2 (08:25→17:00)
[2021-04-21] MEDS: FUROSEMIDE 40 MG TAB PO SCH (08:25)
[2021-04-21] MEDS: GLIMEPIRIDE 2 MG TAB PO SCH ×2 (08:25→17:00)
[2021-04-21] MEDS: PANTOPRAZOLE SOD 40 MG TABEC PO SCH (08:25)
[2021-04-21] MEDS: HYDROCODONE/APAP 10MG-325MG TAB PO PRN (14:16)
[2021-04-21] MEDS: ONDANSETRON HCL INJ 2MG/ML 2ML 2 MG/ML VIAL IV PRN (22:00)
[2021-04-22] VITALS (8 sets, daily range): BP systolic 119–139; BP diastolic 70–85
[2021-04-22] MEDS: HYDROMORPHONE 1MG/1ML INJ IV PRN ×7 (01:10→21:45)
[2021-04-22] MEDS: ONDANSETRON HCL INJ 2MG/ML 2ML 2 MG/ML VIAL IV PRN ×4 (04:35→21:45)
[2021-04-22] MEDS: FLUCONAZOLE 200 MG/100 ML 100 ML IV SCH (04:41)
[2021-04-22] MEDS: CEFEPIME 1 GM in SODIUM CHLORIDE 0.9% 50ML 50 ML IV SCH ×3 (06:18→21:51)
[2021-04-22] MEDS: PANTOPRAZOLE SOD 40 MG TABEC PO SCH (07:30)
[2021-04-22] MEDS: GLIMEPIRIDE 2 MG TAB PO SCH ×2 (08:00→17:00)
[2021-04-22] MEDS: ATENOLOL 50 MG TAB PO SCH ×2 (08:36→17:38)
[2021-04-22] MEDS: FUROSEMIDE 40 MG TAB PO SCH (08:36)
[2021-04-22 12:00] LABS: BASOPHILS # (AUTO) 0.2 (0.0-0.1); BASOPHILS % 0.9 % (0.0-1.0); EOSINOPHILS # (AUTO) 0.2 (0.0-0.4); EOSINOPHILS % 1.2 % (0.0-6.0); HEMATOCRIT 35.2 % (34.2-44.1); HEMOGLOBIN 10.7 g/dL (12.0-16.0); LYMPHOCYTES # (AUTO) 4.2 (1.0-3.2); MEAN CORPUSCULAR HEMOGLOBIN 31.8 pg (28-32); MEAN CORPUSCULAR HGB CONC 30.4 g/dL (31-35); MEAN CORPUSCULAR VOLUME 104.8 fL (81-99); MONOCYTES # (AUTO) 1.9 (0.2-0.8); NEUTROPHILS # (AUTO) 11.4 (2.1-6.9); NEUTROPHILS % 59.5 % (38.7-80.0); PLATELET COUNT 534 x10e3/uL (140-360); RED BLOOD COUNT 3.36 x10e6/uL (3.6-5.1); RED CELL DISTRIBUTION WIDTH 14.1 % (11.7-14.4)
[2021-04-22] MEDS: LOPERAMIDE HCL 2 MG CAP PO PRN (12:04)
[2021-04-22 12:27] LABS: ANION GAP 12.3 mmol/L (8-16); CALCIUM 9.9 mg/dL (8.4-10.2); CREATININE, SERUM 0.76 mg/dL (0.57-1.11); POTASSIUM 4.3 mmol/L (3.5-5.1)
[2021-04-22 13:10] LABS: BAND NEUTROPHILS % (MANUAL) 1 %; EOSINOPHILS % (MANUAL) 1 % (0-7); LYMPHOCYTES % (MANUAL) 21 % (19-48); MONOCYTES % (MANUAL) 10 % (3.4-9.0); MYELOCYTES % (MANUAL) 2 % (0-0); NEUTROPHILS % (MANUAL) 65 % (40-74)
[2021-04-22 13:11] LABS: PLATELET ESTIMATE ADEQUATE; PLATELET MORPHOLOGY COMMENT NORMAL; RBC MORPHOLOGY COMMENT NORMAL
[2021-04-22] MEDS ORDERED: SODIUM CHLORIDE 0.9% 250ML 250 ML ONE (21:55)
[2021-04-23] VITALS (8 sets, daily range): BP systolic 110–140; BP diastolic 63–77
[2021-04-23] MEDS: HYDROMORPHONE 1MG/1ML INJ IV PRN ×7 (01:00→21:30)
[2021-04-23] MEDS: FLUCONAZOLE 200 MG/100 ML 100 ML IV SCH (04:50)
[2021-04-23] MEDS: ONDANSETRON HCL INJ 2MG/ML 2ML 2 MG/ML VIAL IV PRN ×4 (04:51→21:30)
[2021-04-23] MEDS: CEFEPIME 1 GM in SODIUM CHLORIDE 0.9% 50ML 50 ML IV SCH ×3 (06:08→21:30)
[2021-04-23 06:29] LABS: BASOPHILS % 0.2 % (0.0-1.0); EOSINOPHILS # (AUTO) 0.2 (0.0-0.4); EOSINOPHILS % 1.2 % (0.0-6.0); HEMATOCRIT 38.3 % (34.2-44.1); HEMOGLOBIN 11.7 g/dL (12.0-16.0); LYMPHOCYTES # (AUTO) 3.8 (1.0-3.2); LYMPHOCYTES % 19.3 % (18.0-39.1); MEAN CORPUSCULAR HEMOGLOBIN 32.6 pg (28-32); MEAN CORPUSCULAR HGB CONC 30.5 g/dL (31-35); MEAN CORPUSCULAR VOLUME 106.7 fL (81-99); MONOCYTES # (AUTO) 1.7 (0.2-0.8); MONOCYTES % 8.4 % (4.4-11.3); NEUTROPHILS # (AUTO) 12.3 (2.1-6.9); NEUTROPHILS % 62.1 % (38.7-80.0); PLATELET COUNT 594 x10e3/uL (140-360); RED BLOOD COUNT 3.59 x10e6/uL (3.6-5.1); RED CELL DISTRIBUTION WIDTH 14.5 % (11.7-14.4)
[2021-04-23] MEDS: PANTOPRAZOLE SOD 40 MG TABEC PO SCH (07:30)
[2021-04-23] MEDS ORDERED: ALTEPLASE RECOMBINANT 2 MG/2 ML VIAL IV PRN (08:00)
[2021-04-23] MEDS: GLIMEPIRIDE 2 MG TAB PO SCH ×2 (08:00→17:00)
[2021-04-23] MEDS: FUROSEMIDE 40 MG TAB PO SCH (08:38)
[2021-04-23] MEDS: ATENOLOL 50 MG TAB PO SCH ×2 (08:38→17:00)
[2021-04-23] MEDS ORDERED: SODIUM CHLORIDE 0.9% 50ML 50 ML ONE (15:02)
[2021-04-24] VITALS (7 sets, daily range): BP systolic 110–138; BP diastolic 61–74
[2021-04-24] MEDS: CEFEPIME 1 GM in SODIUM CHLORIDE 0.9% 50ML 50 ML IV SCH ×3 (05:30→22:34)
[2021-04-24] MEDS: HYDROMORPHONE 1MG/1ML INJ IV PRN ×6 (05:30→22:34)
[2021-04-24] MEDS: ONDANSETRON HCL INJ 2MG/ML 2ML 2 MG/ML VIAL IV PRN ×3 (05:30→19:23)
[2021-04-24 06:25] LABS: BASOPHILS # (AUTO) 0.2 (0.0-0.1); BASOPHILS % 0.9 % (0.0-1.0); EOSINOPHILS # (AUTO) 0.3 (0.0-0.4); EOSINOPHILS % 1.8 % (0.0-6.0); HEMATOCRIT 39.2 % (34.2-44.1); HEMOGLOBIN 11.9 g/dL (12.0-16.0); LYMPHOCYTES # (AUTO) 3.7 (1.0-3.2); LYMPHOCYTES % 22.2 % (18.0-39.1); MEAN CORPUSCULAR HEMOGLOBIN 31.6 pg (28-32); MEAN CORPUSCULAR HGB CONC 30.4 g/dL (31-35); MONOCYTES # (AUTO) 1.3 (0.2-0.8); NEUTROPHILS # (AUTO) 9.9 (2.1-6.9); NEUTROPHILS % 59.6 % (38.7-80.0); PLATELET COUNT 491 x10e3/uL (140-360); RED BLOOD COUNT 3.77 x10e6/uL (3.6-5.1); RED CELL DISTRIBUTION WIDTH 14.6 % (11.7-14.4)
[2021-04-24] MEDS: GLIMEPIRIDE 2 MG TAB PO SCH ×2 (07:35→16:10)
[2021-04-24] MEDS: PANTOPRAZOLE SOD 40 MG TABEC PO SCH (07:35)
[2021-04-24] MEDS: FUROSEMIDE 40 MG TAB PO SCH (09:00)
[2021-04-24] MEDS: ATENOLOL 50 MG TAB PO SCH ×2 (09:02→16:11)
[2021-04-25] VITALS (9 sets, daily range): BP systolic 116–139; BP diastolic 63–86
[2021-04-25] MEDS: HYDROMORPHONE 1MG/1ML INJ IV PRN ×4 (05:40→21:10)
[2021-04-25] MEDS: CEFEPIME 1 GM in SODIUM CHLORIDE 0.9% 50ML 50 ML IV SCH (05:40)
[2021-04-25] MEDS: ONDANSETRON HCL INJ 2MG/ML 2ML 2 MG/ML VIAL IV PRN (05:40)
[2021-04-25] MEDS: FUROSEMIDE 40 MG TAB PO SCH ×2 (09:00→09:27)
[2021-04-25] MEDS: GLIMEPIRIDE 2 MG TAB PO SCH ×2 (09:27→17:51)
[2021-04-25] MEDS: PANTOPRAZOLE SOD 40 MG TABEC PO SCH (09:27)
[2021-04-25] MEDS: ATENOLOL 50 MG TAB PO SCH ×2 (09:28→17:51)
[2021-04-25 11:59] LABS: BASOPHILS # (AUTO) 0.1 (0.0-0.1); BASOPHILS % 0.6 % (0.0-1.0); EOSINOPHILS # (AUTO) 0.3 (0.0-0.4); EOSINOPHILS % 1.7 % (0.0-6.0); HEMATOCRIT 39.3 % (34.2-44.1); HEMOGLOBIN 12.1 g/dL (12.0-16.0); LYMPHOCYTES # (AUTO) 3.4 (1.0-3.2); LYMPHOCYTES % 19.2 % (18.0-39.1); MEAN CORPUSCULAR HEMOGLOBIN 31.6 pg (28-32); MEAN CORPUSCULAR HGB CONC 30.8 g/dL (31-35); MEAN CORPUSCULAR VOLUME 102.6 fL (81-99); MONOCYTES # (AUTO) 1.3 (0.2-0.8); MONOCYTES % 7.5 % (4.4-11.3); NEUTROPHILS # (AUTO) 11.8 (2.1-6.9); NEUTROPHILS % 66.2 % (38.7-80.0); PLATELET COUNT 539 x10e3/uL (140-360); RED BLOOD COUNT 3.83 x10e6/uL (3.6-5.1); RED CELL DISTRIBUTION WIDTH 14.6 % (11.7-14.4)
[2021-04-25 12:18] LABS: ANION GAP 13.9 mmol/L (8-16); CALCIUM 9.7 mg/dL (8.4-10.2); CREATININE, SERUM 0.8 mg/dL (0.57-1.11); POTASSIUM 3.9 mmol/L (3.5-5.1)
[2021-04-25 14:03] LABS: ALBUMIN 3.4 g/dL (3.5-5.0); BILIRUBIN,DIRECT 0.2 mg/dL (0.0-0.5)
[2021-04-26] VITALS: BP 107/86
[2021-04-26 04:00] VITALS: BP 128/87
[2021-04-26] MEDS: HYDROMORPHONE 1MG/1ML INJ IV PRN ×6 (06:47→22:26)
[2021-04-26 07:13] LABS: CALCIUM 9.9 mg/dL (8.4-10.2); CREATININE, SERUM 0.65 mg/dL (0.57-1.11)
[2021-04-26 07:18] LABS: BASOPHILS # (AUTO) 0.1 (0.0-0.1); BASOPHILS % 0.4 % (0.0-1.0); EOSINOPHILS # (AUTO) 0.3 (0.0-0.4); EOSINOPHILS % 2.1 % (0.0-6.0); HEMATOCRIT 37.7 % (34.2-44.1); HEMOGLOBIN 11.9 g/dL (12.0-16.0); LYMPHOCYTES # (AUTO) 3.6 (1.0-3.2); LYMPHOCYTES % 26.2 % (18.0-39.1); MEAN CORPUSCULAR HEMOGLOBIN 31.1 pg (28-32); MEAN CORPUSCULAR HGB CONC 31.6 g/dL (31-35); MEAN CORPUSCULAR VOLUME 98.4 fL (81-99); MONOCYTES # (AUTO) 1.3 (0.2-0.8); MONOCYTES % 9.5 % (4.4-11.3); NEUTROPHILS # (AUTO) 7.9 (2.1-6.9); PLATELET COUNT 513 x10e3/uL (140-360); RED BLOOD COUNT 3.83 x10e6/uL (3.6-5.1); RED CELL DISTRIBUTION WIDTH 14.6 % (11.7-14.4)
[2021-04-26] MEDS: GLIMEPIRIDE 2 MG TAB PO SCH ×2 (08:11→16:03)
[2021-04-26] MEDS: PANTOPRAZOLE SOD 40 MG TABEC PO SCH (08:11)
[2021-04-26] MEDS: ATENOLOL 50 MG TAB PO SCH ×2 (08:12→16:04)
[2021-04-26] MEDS: FUROSEMIDE 40 MG TAB PO SCH (08:14)
[2021-04-26 08:31] VITALS: BP 115/70
[2021-04-26 08:55] VITALS: BP 115/70
[2021-04-26] MEDS ORDERED: HYDROCODONE/APAP 10MG-325MG TAB PO PRN (09:00)
[2021-04-26 11:46] VITALS: BP 118/81
[2021-04-26] MEDS: ONDANSETRON HCL INJ 2MG/ML 2ML 2 MG/ML VIAL IV PRN (16:10)
[2021-04-26 20:00] VITALS: BP 131/76
[2021-04-27] VITALS: BP 121/68
[2021-04-27] MEDS: HYDROMORPHONE 1MG/1ML INJ IV PRN ×5 (01:35→16:14)
[2021-04-27] MEDS: ONDANSETRON HCL INJ 2MG/ML 2ML 2 MG/ML VIAL IV PRN ×3 (01:35→16:14)
[2021-04-27 04:00] VITALS: BP 120/80
[2021-04-27 05:37] LABS: BASOPHILS # (AUTO) 0.1 (0.0-0.1); BASOPHILS % 0.4 % (0.0-1.0); EOSINOPHILS # (AUTO) 0.3 (0.0-0.4); EOSINOPHILS % 2.2 % (0.0-6.0); HEMATOCRIT 36.8 % (34.2-44.1); HEMOGLOBIN 11.8 g/dL (12.0-16.0); LYMPHOCYTES # (AUTO) 3.6 (1.0-3.2); MEAN CORPUSCULAR HEMOGLOBIN 31.4 pg (28-32); MEAN CORPUSCULAR HGB CONC 32.1 g/dL (31-35); MEAN CORPUSCULAR VOLUME 97.9 fL (81-99); MONOCYTES # (AUTO) 1.3 (0.2-0.8); MONOCYTES % 8.6 % (4.4-11.3); NEUTROPHILS % 61.9 % (38.7-80.0); PLATELET COUNT 491 x10e3/uL (140-360); RED BLOOD COUNT 3.76 x10e6/uL (3.6-5.1); RED CELL DISTRIBUTION WIDTH 14.1 % (11.7-14.4)
[2021-04-27 06:09] LABS: ALBUMIN 3.2 g/dL (3.5-5.0); ALBUMIN/GLOBULIN RATIO 0.8 (0.8-2.0); ANION GAP 13.6 mmol/L (8-16); CALCIUM 9.5 mg/dL (8.4-10.2); CREATININE, SERUM 0.66 mg/dL (0.57-1.11); POTASSIUM 3.6 mmol/L (3.5-5.1)
[2021-04-27 08:42] VITALS: BP 122/77
[2021-04-27 09:00] VITALS: BP 122/77
[2021-04-27] MEDS: PANTOPRAZOLE SOD 40 MG TABEC PO SCH (09:14)
[2021-04-27] MEDS: FUROSEMIDE 40 MG TAB PO SCH (09:15)
[2021-04-27] MEDS: GLIMEPIRIDE 2 MG TAB PO SCH (09:15)
[2021-04-27] MEDS: ATENOLOL 50 MG TAB PO SCH (09:16)
[2021-04-27 12:02] VITALS: BP 129/82
[2021-04-27] MEDS ORDERED: AUGMENTIN 875-1 EACH PO (14:09)
[2021-04-27 16:28] VITALS: BP 121/70
== END 2021-04-27 17:00 | disposition home or self-care (01) | DRG 872 ==
LOC: ER 06:18 → ERHOLD 08:12 → MED/SURG2 14:23 → MED/SURG 04-17 17:59
PROVIDERS: ADMIT Internal Medicine; ATTEND Internal Medicine
PROC: 02HV33Z Insertion of Infusion Device into Superior Vena Cava, Percutaneous Approach (ICD-10-PCS; 2021-04-07)
PROC: 0J9R0ZZ Drainage of Left Foot Subcutaneous Tissue and Fascia, Open Approach (ICD-10-PCS; principal; 2021-04-16 12:00)
DX: A41.9 Sepsis, unspecified organism (principal); L02.818 Cutaneous abscess of other sites; L03.116 Cellulitis of left lower limb; I10 Essential (primary) hypertension; M32.9 Systemic lupus erythematosus, unspecified; F41.9 Anxiety disorder, unspecified; I89.0 Lymphedema, not elsewhere classified; D64.9 Anemia, unspecified; F32.A Depression, unspecified; Z20.822 Contact with and (suspected) exposure to COVID-19
CPT/HCPCS: 36415; 36569; 71045; 71046; 80048; 80053; 80076; 82948; 83605; 83690; 83735; 85025; 87040; 87071; 87075; 87086; 87102; 87186; 87205; 87206; 93005; 96361; 97139; 97605; 99251; 99284; J0690; J0692; J1170; J1450; J1885; J2001; J2020; J2250; J2270; J2405; J2543; J2997; J3010; J7030; J7050; U0002

== ENCOUNTER 2021-09-25 14:10 | Inpatient (IN) | payer OTHER ==
[~2021-09-25] VITALS: Ht 162.6 cm; Wt 67.1 kg
[~2021-09-25 14:10] MED LIST changes: +AUGMENTIN 875-1 EACH PO
[2021-09-25] MEDS ORDERED: ONDANSETRON HCL INJ 2MG/ML 2ML 2 MG/ML VIAL IV STA (14:29)
[2021-09-25] MEDS ORDERED: SODIUM CHLORIDE 0.9% 500ML 500 ML IV STA (14:32)
[2021-09-25 14:49] LABS: BASOPHILS # (AUTO) 0.1 (0.0-0.1); EOSINOPHILS # (AUTO) 0.5 (0.0-0.4); EOSINOPHILS % 4.1 % (0.0-6.0); HEMOGLOBIN 15.6 g/dL (12.0-16.0); LYMPHOCYTES # (AUTO) 4.7 (1.0-3.2); LYMPHOCYTES % 42.2 % (18.0-39.1); MEAN CORPUSCULAR HEMOGLOBIN 30.1 pg (28-32); MEAN CORPUSCULAR HGB CONC 32.5 g/dL (31-35); MEAN CORPUSCULAR VOLUME 92.7 fL (81-99); MONOCYTES # (AUTO) 0.9 (0.2-0.8); MONOCYTES % 7.9 % (4.4-11.3); NEUTROPHILS # (AUTO) 4.9 (2.1-6.9); NEUTROPHILS % 44.4 % (38.7-80.0); PLATELET COUNT 470 x10e3/uL (140-360); RED BLOOD COUNT 5.18 x10e6/uL (3.6-5.1); RED CELL DISTRIBUTION WIDTH 13.5 % (11.7-14.4)
[2021-09-25 14:58] LABS: INR 0.96; PROTHROMBIN TIME 13.7 seconds (11.9-14.5)
[2021-09-25 14:59] LABS: PARTIAL THROMBOPLASTIN TIME 27.8 seconds (23.8-35.5)
[2021-09-25 15:09] LABS: ALBUMIN 3.7 g/dL (3.5-5.0); ALBUMIN/GLOBULIN RATIO 0.9 (0.8-2.0); ANION GAP 16.9 mmol/L (8-16); CREATININE, SERUM 1.04 mg/dL (0.57-1.11); MAGNESIUM 1.9 MG/DL (1.3-2.1); POTASSIUM 3.9 mmol/L (3.5-5.1)
[2021-09-25 15:11] LABS: CALCIUM 13.7 mg/dL (8.4-10.2)
[2021-09-25 16:09] LABS: CLARITY,URINE CLOUDY (CLEAR); COLOR,URINE YELLOW (YELLOW); KETONES,URINE NEGATIVE (NEGATIVE); LEUKOCYTE ESTERASE ,URINE SMALL (NEGATIVE); NITRITE,URINE NEGATIVE (NEGATIVE); PROTEIN,URINE DIPSTICK NEGATIVE (NEGATIVE)
[2021-09-25 16:10] LABS: URINE UROBILINOGEN 0.2 mg/dL (0.2 - 1)
[2021-09-25 16:18] LABS: BACTERIA,URINE MANY /HPF; EPITHELIAL CELLS,URINE MANY /LPF
[2021-09-25] MEDS ORDERED: Morphine 4mg INJECTION 4 MG/ML INJ IV ONE (16:45)
[2021-09-25] MEDS ORDERED: HYDROCORTISONE SOD SUCCINATE 100 MG VIAL IV ONE (17:00)
[2021-09-25 17:30] LABS: FREE THYROXINE INDEX 2.448 (1.4-3.8); THYROID STIMULATING HORMONE 2.639 uIU/mL (0.350-4.940)
[2021-09-25] MEDS: Morphine 2mg Syringe 2 MG/ML SYR IV PRN ×2 (19:07→20:57)
[2021-09-25] MEDS: ONDANSETRON HCL INJ 2MG/ML 2ML 2 MG/ML VIAL IV PRN ×2 (19:07→20:58)
[2021-09-25] MEDS: SODIUM CHLORIDE 0.9% 1000ML 1,000 ML IV SCH (19:19)
[2021-09-25 21:00] VITALS: BP 149/77
[2021-09-25 21:15] LABS: CREATINE KINASE 22 IU/L (29-168)
[2021-09-26] VITALS (9 sets, daily range): BP systolic 94–125; BP diastolic 52–78
[2021-09-26] MEDS: Morphine 2mg Syringe 2 MG/ML SYR IV PRN (01:19)
[2021-09-26] MEDS: ONDANSETRON HCL INJ 2MG/ML 2ML 2 MG/ML VIAL IV PRN ×2 (01:20→05:43)
[2021-09-26] MEDS: SODIUM CHLORIDE 0.9% 1000ML 1,000 ML IV SCH ×3 (03:00→22:52)
[2021-09-26] MEDS ORDERED: ALPRAZOLAM 0.25 MG TAB PO PRN (04:30)
[2021-09-26] MEDS ORDERED: PROMETHAZINE HCL 25 MG TAB PO PRN (04:30)
[2021-09-26] MEDS ORDERED: HYDROCODONE/APAP 10MG-325MG TAB PO PRN (04:30)
[2021-09-26] MEDS ORDERED: SERTRALINE HCL 50 MG TAB PO PRN (04:30)
[2021-09-26] MEDS ORDERED: CYCLOBENZAPRINE HCL 10 MG TAB PO PRN (04:30)
[2021-09-26] MEDS: HYDROMORPHONE 1MG/1ML INJ IV PRN ×5 (05:43→21:06)
[2021-09-26 06:57] LABS: BASOPHILS # (AUTO) 0.1 (0.0-0.1); BASOPHILS % 0.7 % (0.0-1.0); EOSINOPHILS # (AUTO) 0.2 (0.0-0.4); HEMATOCRIT 39.7 % (34.2-44.1); HEMOGLOBIN 12.8 g/dL (12.0-16.0); LYMPHOCYTES # (AUTO) 3.9 (1.0-3.2); LYMPHOCYTES % 39.3 % (18.0-39.1); MEAN CORPUSCULAR HEMOGLOBIN 30.5 pg (28-32); MEAN CORPUSCULAR HGB CONC 32.2 g/dL (31-35); MEAN CORPUSCULAR VOLUME 94.7 fL (81-99); MONOCYTES # (AUTO) 0.6 (0.2-0.8); MONOCYTES % 6.4 % (4.4-11.3); NEUTROPHILS # (AUTO) 5.1 (2.1-6.9); NEUTROPHILS % 51.3 % (38.7-80.0); PLATELET COUNT 360 x10e3/uL (140-360); RED BLOOD COUNT 4.19 x10e6/uL (3.6-5.1); RED CELL DISTRIBUTION WIDTH 13.5 % (11.7-14.4)
[2021-09-26 07:37] LABS: ALBUMIN 3.2 g/dL (3.5-5.0); ANION GAP 11.9 mmol/L (8-16); CALCIUM 10.5 mg/dL (8.4-10.2); CREATININE, SERUM 0.86 mg/dL (0.57-1.11); POTASSIUM 3.9 mmol/L (3.5-5.1)
[2021-09-26 08:34] LABS: CREATINE KINASE 27 IU/L (29-168)
[2021-09-26 15:41] LABS: CREATINE KINASE MB 1.5 ng/mL (0-5.0)
[2021-09-27] VITALS (8 sets, daily range): BP systolic 107–144; BP diastolic 60–100
[2021-09-27] MEDS: HYDROMORPHONE 1MG/1ML INJ IV PRN ×8 (00:04→23:45)
[2021-09-27 07:08] LABS: BASOPHILS # (AUTO) 0.1 (0.0-0.1); BASOPHILS % 0.8 % (0.0-1.0); EOSINOPHILS # (AUTO) 0.4 (0.0-0.4); EOSINOPHILS % 5.8 % (0.0-6.0); HEMATOCRIT 39.1 % (34.2-44.1); HEMOGLOBIN 12.7 g/dL (12.0-16.0); LYMPHOCYTES # (AUTO) 3.3 (1.0-3.2); LYMPHOCYTES % 45.5 % (18.0-39.1); MEAN CORPUSCULAR HEMOGLOBIN 30.5 pg (28-32); MEAN CORPUSCULAR HGB CONC 32.5 g/dL (31-35); MEAN CORPUSCULAR VOLUME 93.8 fL (81-99); MONOCYTES # (AUTO) 0.5 (0.2-0.8); MONOCYTES % 7.2 % (4.4-11.3); NEUTROPHILS # (AUTO) 2.9 (2.1-6.9); NEUTROPHILS % 40.3 % (38.7-80.0); PLATELET COUNT 314 x10e3/uL (140-360); RED BLOOD COUNT 4.17 x10e6/uL (3.6-5.1); RED CELL DISTRIBUTION WIDTH 13.4 % (11.7-14.4)
[2021-09-27 07:32] LABS: ALBUMIN 3.1 g/dL (3.5-5.0); ALBUMIN/GLOBULIN RATIO 1.1 (0.8-2.0); ANION GAP 10.6 mmol/L (8-16); CALCIUM 10.2 mg/dL (8.4-10.2); CREATININE, SERUM 0.79 mg/dL (0.57-1.11); POTASSIUM 3.6 mmol/L (3.5-5.1)
[2021-09-27] MEDS: SODIUM CHLORIDE 0.9% 1000ML 1,000 ML IV SCH ×2 (09:00→19:00)
[2021-09-27] MEDS: ONDANSETRON HCL INJ 2MG/ML 2ML 2 MG/ML VIAL IV PRN (11:03)
[2021-09-28] VITALS (7 sets, daily range): BP systolic 123–145; BP diastolic 60–89
[2021-09-28] MEDS: HYDROMORPHONE 1MG/1ML INJ IV PRN ×7 (02:45→22:10)
[2021-09-28 06:32] LABS: BASOPHILS # (AUTO) 0.1 (0.0-0.1); BASOPHILS % 0.9 % (0.0-1.0); EOSINOPHILS # (AUTO) 0.4 (0.0-0.4); EOSINOPHILS % 4.8 % (0.0-6.0); HEMATOCRIT 38.3 % (34.2-44.1); HEMOGLOBIN 12.3 g/dL (12.0-16.0); LYMPHOCYTES # (AUTO) 3.7 (1.0-3.2); LYMPHOCYTES % 39.9 % (18.0-39.1); MEAN CORPUSCULAR HEMOGLOBIN 30.1 pg (28-32); MEAN CORPUSCULAR HGB CONC 32.1 g/dL (31-35); MEAN CORPUSCULAR VOLUME 93.9 fL (81-99); MONOCYTES # (AUTO) 0.7 (0.2-0.8); MONOCYTES % 7.8 % (4.4-11.3); NEUTROPHILS # (AUTO) 4.2 (2.1-6.9); NEUTROPHILS % 46.2 % (38.7-80.0); PLATELET COUNT 354 x10e3/uL (140-360); RED BLOOD COUNT 4.08 x10e6/uL (3.6-5.1); RED CELL DISTRIBUTION WIDTH 13.3 % (11.7-14.4)
[2021-09-28 06:57] LABS: ALANINE AMINOTRANSFERASE 103 IU/L (0-55); ALBUMIN 3.1 g/dL (3.5-5.0); ALKALINE PHOSPHATASE 178 IU/L (40-150); ANION GAP 10.8 mmol/L (8-16); BLOOD UREA NITROGEN < 5 mg/dL (7-26); CALCIUM 10.3 mg/dL (8.4-10.2); CARBON DIOXIDE 28 mmol/L (22-29); CHLORIDE 107 mmol/L (98-107); GLUCOSE 94 mg/dL (74-118); POTASSIUM 3.8 mmol/L (3.5-5.1); SODIUM 142 mmol/L (136-145)
[2021-09-28 07:01] LABS: BUN/CREATININE RATIO 6 (6-25)
[2021-09-28] MEDS: BISACODYL 5 MG TAB EC PO PRN ×2 (11:31→22:44)
[2021-09-28] MEDS: ONDANSETRON HCL INJ 2MG/ML 2ML 2 MG/ML VIAL IV PRN (22:10)
[2021-09-29] VITALS (7 sets, daily range): BP systolic 103–136; BP diastolic 56–87
[2021-09-29] MEDS: ONDANSETRON HCL INJ 2MG/ML 2ML 2 MG/ML VIAL IV PRN (04:45)
[2021-09-29] MEDS: HYDROMORPHONE 1MG/1ML INJ IV PRN ×6 (04:45→21:53)
[2021-09-29 07:30] LABS: BASOPHILS # (AUTO) 0.1 (0.0-0.1); BASOPHILS % 0.8 % (0.0-1.0); EOSINOPHILS # (AUTO) 0.5 (0.0-0.4); EOSINOPHILS % 5.9 % (0.0-6.0); HEMATOCRIT 38.7 % (34.2-44.1); HEMOGLOBIN 12.8 g/dL (12.0-16.0); LYMPHOCYTES # (AUTO) 3.2 (1.0-3.2); LYMPHOCYTES % 37.7 % (18.0-39.1); MEAN CORPUSCULAR HEMOGLOBIN 30.6 pg (28-32); MEAN CORPUSCULAR HGB CONC 33.1 g/dL (31-35); MEAN CORPUSCULAR VOLUME 92.6 fL (81-99); MONOCYTES # (AUTO) 0.6 (0.2-0.8); MONOCYTES % 6.8 % (4.4-11.3); NEUTROPHILS # (AUTO) 4.1 (2.1-6.9); NEUTROPHILS % 48.6 % (38.7-80.0); PLATELET COUNT 346 x10e3/uL (140-360); RED BLOOD COUNT 4.18 x10e6/uL (3.6-5.1); RED CELL DISTRIBUTION WIDTH 13.4 % (11.7-14.4)
[2021-09-29] MEDS: BISACODYL 5 MG TAB EC PO PRN (07:45)
[2021-09-29 07:58] LABS: ALBUMIN 2.9 g/dL (3.5-5.0); ALBUMIN/GLOBULIN RATIO 0.9 (0.8-2.0); ANION GAP 14.6 mmol/L (8-16); CALCIUM 10.3 mg/dL (8.4-10.2); CREATININE, SERUM 0.75 mg/dL (0.57-1.11); POTASSIUM 3.6 mmol/L (3.5-5.1)
[2021-09-29] MEDS ORDERED: SOD PHOSPHATE/SOD BIPHOSPHATE ENEMA 132 ML BTL PR ONE (10:30)
[2021-09-30] VITALS (7 sets, daily range): BP systolic 99–131; BP diastolic 50–77
[2021-09-30] MEDS: HYDROMORPHONE 1MG/1ML INJ IV PRN ×7 (01:18→23:49)
[2021-09-30] MEDS: ONDANSETRON HCL INJ 2MG/ML 2ML 2 MG/ML VIAL IV PRN (20:31)
[2021-10-01] VITALS: BP 105/63
[2021-10-01 04:00] VITALS: BP 126/62
[2021-10-01 06:43] LABS: BASOPHILS # (AUTO) 0.1 (0.0-0.1); BASOPHILS % 0.7 % (0.0-1.0); EOSINOPHILS # (AUTO) 0.7 (0.0-0.4); EOSINOPHILS % 6.8 % (0.0-6.0); HEMATOCRIT 38.3 % (34.2-44.1); HEMOGLOBIN 12.3 g/dL (12.0-16.0); LYMPHOCYTES # (AUTO) 3.9 (1.0-3.2); LYMPHOCYTES % 39.3 % (18.0-39.1); MEAN CORPUSCULAR HEMOGLOBIN 30.8 pg (28-32); MEAN CORPUSCULAR HGB CONC 32.1 g/dL (31-35); MONOCYTES # (AUTO) 0.8 (0.2-0.8); MONOCYTES % 7.8 % (4.4-11.3); NEUTROPHILS # (AUTO) 4.5 (2.1-6.9); NEUTROPHILS % 45.1 % (38.7-80.0); PLATELET COUNT 355 x10e3/uL (140-360); RED BLOOD COUNT 3.99 x10e6/uL (3.6-5.1); RED CELL DISTRIBUTION WIDTH 13.8 % (11.7-14.4)
[2021-10-01 07:23] LABS: ALBUMIN 2.9 g/dL (3.5-5.0); ALBUMIN/GLOBULIN RATIO 0.9 (0.8-2.0); ANION GAP 12.6 mmol/L (8-16); CALCIUM 9.9 mg/dL (8.4-10.2); CREATININE, SERUM 0.75 mg/dL (0.57-1.11); POTASSIUM 3.6 mmol/L (3.5-5.1)
[2021-10-01 08:00] VITALS: BP 104/57
[2021-10-01] MEDS: HYDROMORPHONE 1MG/1ML INJ IV PRN (09:00)
[2021-10-01 12:02] VITALS: BP 101/73
== END 2021-10-01 12:38 | disposition home or self-care (01) | DRG 641 ==
LOC: ER 14:23 → ERHOLD 16:59 → MED/SURG3 21:07
PROVIDERS: ADMIT Internal Medicine; ATTEND Internal Medicine
PROC: 02HV33Z Insertion of Infusion Device into Superior Vena Cava, Percutaneous Approach (ICD-10-PCS; principal; 2021-09-29)
DX: E83.52 Hypercalcemia (principal); M32.9 Systemic lupus erythematosus, unspecified; M25.512 Pain in left shoulder; M25.511 Pain in right shoulder; E11.22 Type 2 diabetes mellitus with diabetic chronic kidney disease; I12.9 Hypertensive chronic kidney disease with stage 1 through stage 4 chronic kidney disease, or unspecified chronic kidney disease; N18.9 Chronic kidney disease, unspecified; Z79.899 Other long term (current) drug therapy; Z74.01 Bed confinement status; F41.9 Anxiety disorder, unspecified; Z74.09 Other reduced mobility; M81.0 Age-related osteoporosis without current pathological fracture; N18.30 Chronic kidney disease, stage 3 unspecified; Z20.822 Contact with and (suspected) exposure to COVID-19
CPT/HCPCS: 36415; 36569; 71045; 80053; 81001; 82550; 82553; 83735; 83970; 84436; 84443; 84479; 84484; 85025; 85610; 85730; 93005; 99284; J1170; J1720; J2270; J2405; J7030; J7040